=== PATIENT | male | born 1955 ===

== ENCOUNTER 2016-11-26 15:00 | Emergency (ER) | payer MEDICARE ==
[2016-11-26 15:01] VITALS: PULSE 58; BMI 53.4
[2016-11-26 16:07] VITALS: TEMP 98
[2016-11-26] MEDS ORDERED: Oxycodone/Acetaminophen 5/325 mg Tab PO STA (16:42)
--- NOTE | 2016-11-26 17:01 | ED PDOC ---
Arrival/HPI - General Chief Complaint: Back Pain Time Seen by Provider: 11/26/16 16:20 Historian: Patient - History of Present Illness Narrative History of Present Illness (Text): 11/26/16 16:20 A 61 year old male, whose past medical history includes chronic back pain, presents to the emergency department complaining of right sided back pain since this morning. Patient is requesting pain medication. Patient follows up with PMD for pain. He denies any bladder/urinary symptoms, saddle anesthesia, or any other complaints at this time. PMD: Dr. Brown Time/Duration: 1-3 hours Symptom Onset: Sudden Symptom Course: Unchanged Quality: Other Activities at Onset: Rest Context: Home Past Medical History - Provider Review Nursing Documentation Reviewed: Yes - Infectious Disease Hx of Infectious Diseases: None - Tetanus Immunization Tetanus Immunization: Unknown - Cardiac Hx Cardiac Disorders: Yes Hx Cardiac Arrhythmia: Yes Hx Congestive Heart Failure: Yes Hx Hypertension: Yes Hx Peripheral Edema: Yes (b/l lower extremity lymphadema) Other/Comment: venous stasis ble - Pulmonary Hx Respiratory Disorders: Yes Other/Comment: sob - Neurological Hx Neurological Disorder: No - HEENT Hx HEENT Disorder: No - Renal Hx Renal Disorder: Yes ("born with one kidney") - Endocrine/Metabolic Hx Endocrine Disorders: No - Hematological/Oncological Hx Blood Disorders: No - Integumentary Hx Dermatological Disorder: Yes (CELLULITIS TO LOWER EXTREMITY) Other/Comment: bilateral lower ext lymphedema, with stasis ulcers to bilateral legs which are now healed, pt now has a scratch to outer left calf which is draining clear drainage, both lower legs have drk skin discolorations - Musculoskeletal/Rheumatological Hx Musculoskeletal Disorders: No Hx Falls: No - Gastrointestinal Hx Gastrointestinal Disorders: No - Genitourinary/Gynecological Hx Genitourinary Disorders: No - Psychiatric Hx Psychophysiologic Disorder: Yes Hx Depression: Yes Hx Emotional Abuse: No Hx Physical Abuse: No Hx Substance Use: Yes - Surgical History Hx Gastric Bypass Surgery: Yes (Lap band) Hx Orthopedic Surgery: Yes Other/Comment: left knee sx for torn ligament and cartilige, lap band 5 yrs ago "weight went up and down" - Anesthesia Hx Anesthesia: Yes Hx Anesthesia Reactions: No Hx Malignant Hyperthermia: No - Suicidal Assessment Feels Threatened In Home Enviroment: No Family/Social History - Physician Review Nursing Documentation Reviewed: Yes Family/Social History: No Known Family HX Smoking Status: Never Smoked Hx Alcohol Use: Yes Hx Substance Use: Yes Hx Substance Use Treatment: No Allergies/Home Meds Allergies/Adverse Reactions: Allergies No Known Allergies Allergy (Verified 10/27/16 11:47) Home Medications: Home Meds Medication Instructions Recorded Confirmed Cholecalciferol 400 Intl Units 1 tab PO DAILY 10/21/16 10/27/16 [Vitamin D 400 Intl Units Tab] Cyanocobalamin (Vitamin B-12) 1 tab PO DAILY 10/21/16 10/27/16 [Vitamin B12] Review of Systems - Physician Review All systems were reviewed & negative as marked: Yes - Review of Systems Gastrointestinal: absent: Stool Changes Genitourinary Male: absent: Dysuria, Frequency, Hematuria, Urinary Output Changes Musculoskeletal: Back Pain Physical Exam Vital Signs Reviewed: Yes Vital Signs Temp Pulse Resp BP Pulse Ox 11/26/16 16:03 98 F 88 18 157/108 H 96 Temperature: Afebrile Blood Pressure: Hypertensive Pulse: Regular Respiratory Rate: Normal Appearance: Positive for: Well-Appearing, Non-Toxic, Comfortable Pain Distress: None Mental Status: Positive for: Alert and Oriented X 3 - Systems Exam Head: Present: Atraumatic, Normocephalic Pupils: Present: PERRL Extroacular Muscles: Present: EOMI Conjunctiva: Present: Normal Mouth: Present: Moist Mucous Membranes Neck: Present: Normal Range of Motion Respiratory/Chest: Present: Clear to Auscultation, Good Air Exchange. No: Respiratory Distress, Accessory Muscle Use Cardiovascular: Present: Regular Rate and Rhythm, Normal S1, S2. No: Murmurs Abdomen: Present: Normal Bowel Sounds. No: Tenderness, Distention, Peritoneal Signs Back: No: CVA Tenderness, Midline Tenderness, Paraspinal Tenderness Upper Extremity: Present: Normal Inspection. No: Cyanosis, Edema Lower Extremity: Present: Normal Inspection. No: Edema Neurological: Present: GCS=15, CN II-XII Intact, Speech Normal Skin: Present: Warm, Dry, Normal Color. No: Rashes Psychiatric: Present: Alert, Oriented x 3, Normal Insight, Normal Concentration Medical Decision Making ED Course and Treatment: 11/26/16 16:20 Impression: A 61 year old male with chronic back pain. Differential Diagnosis include but are not limited to: chronic back pain. Plan: -- Percocet -- Reassess and disposition Prior Visits: Notes and results from previous visits were reviewed. Patient last presented on 10/27/16 for evaluation of urinary frequency and urgency. Progress Notes: On re-evaluation, the patient feels better and is in no acute distress. I have discussed the results and plan with the patient, who expresses understanding. Patient in agreement with plan to discharged home. Patient is stable for discharge. Patient was instructed to follow up with physician/clinic in 1-2 days or return if symptoms worsen or new concerning symptoms arise. - Medication Orders Current Medication Orders: Discontinued Medications Oxycodone/Acetaminophen (Percocet 5/325 Mg Tab) 1 tab PO STAT STA Stop: 11/26/16 16:43 Last Admin: 11/26/16 17:16 Dose: 1 TAB - Scribe Statement The provider has reviewed the documentation as recorded by the Elainaibvilla Eduardo Provider Scribe Attestation: All medical record entries made by the Scribe were at my direction and personally dictated by me. I have reviewed the chart and agree that the record accurately reflects my personal performance of the history, physical exam, medical decision making, and the department course for this patient. I have also personally directed, reviewed, and agree with the discharge instructions and disposition. Disposition/Present on Arrival - Present on Arrival Any Indicators Present on Arrival: No History of DVT/PE: No History of Uncontrolled Diabetes: No Urinary Catheter: No History of Decub. Ulcer: No History Surgical Site Infection Following: None - Disposition Have Diagnosis and Disposition been Completed?: Yes Diagnosis: Chronic back pain Disposition: HOME/ ROUTINE Disposition Time: 16:50 Patient Plan: Discharge Patient Problems: Current Active Problems Problem Status Diagnosed CHF (congestive heart failure) Acute Chronic back pain Acute Leg ulcer, left Acute Condition: GOOD Discharge Instructions (ExitCare): Chronic Back Pain (ED) Additional Instructions: Thank you for letting us take care of you today. Your provider was Dr. Morrow. You were treated for chronic back pain. The emergency medical care you received today was directed at your acute symptoms. If you were prescribed any medication, please fill it and take as directed. It may take several days for your symptoms to resolve. Return to the Emergency Department if your symptoms worsen, do not improve, or if you have any other problems. Please contact your doctor or call one of the physicians/clinics you have been referred to that are listed on the Patient Visit Information form that is included in your discharge packet. Bring any paperwork you were given at discharge with you along with any medications you are taking to your follow up visit. Our treatment cannot replace ongoing medical care by a primary care provider (PCP) outside of the emergency department. Thank you for allowing the [facility] team to be part of your care today. Follow up with your primary doctor in 2-3 days for re-evaluation. Prescriptions: Acetaminophen/Oxycodone Hydr [Oxycodone and Acetaminophen 325 mg-2.5 mg] 1 tab PO Q6 PRN #10 tab PRN Reason: Pain, Severe (8-10) Referrals: Rashad Brown MD [Primary Care Provider] - Follow up with primary
[2016-11-26 22:18] VITALS: BP 149/92; PULSE 83; RESP 16; O2SAT 98
== END 2016-11-26 17:30 | disposition home or self-care (01) ==
LOC: ED 15:00
DX: M54.9 Dorsalgia, unspecified (principal); G89.29 Other chronic pain

== ENCOUNTER 2016-12-28 12:22 | Emergency (ER) | payer MEDICARE, OTHER ==
[2016-12-28 12:23] VITALS: PULSE 58
[2016-12-28 12:37] VITALS: BMI 41.5
[2016-12-28 12:39] VITALS: TEMP 98.3
--- NOTE | 2016-12-28 13:01 | ED PDOC ---
Arrival/HPI - General Chief Complaint: High Blood Pressure Time Seen by Provider: 12/28/16 12:36 Historian: Patient - History of Present Illness Narrative History of Present Illness (Text): 12/28/16 13:19 61 year old male presents to the emergency department for elevated blood pressure. He states he was at wound care when he was told to come to the ER for high BP reading. Patient states he is on medication for hypertension and his blood pressure usually runs high. Denies chest pain, cough, fever, or other symptoms. PMD: Dr. Brown Time/Duration: 24 hours Symptom Onset: Sudden Context: Walking Associated Symptoms (Text): None Past Medical History - Provider Review Nursing Documentation Reviewed: Yes - Infectious Disease Hx of Infectious Diseases: None - Tetanus Immunization Tetanus Immunization: Unknown - Cardiac Hx Cardiac Disorders: Yes Hx Cardiac Arrhythmia: Yes Hx Congestive Heart Failure: Yes Hx Hypertension: Yes Hx Peripheral Edema: Yes (b/l lower extremity lymphadema) Other/Comment: venous stasis ble - Pulmonary Hx Respiratory Disorders: Yes Other/Comment: sob - Neurological Hx Neurological Disorder: No - HEENT Hx HEENT Disorder: No - Renal Hx Renal Disorder: Yes ("born with one kidney") - Endocrine/Metabolic Hx Endocrine Disorders: No - Hematological/Oncological Hx Blood Disorders: No - Integumentary Hx Dermatological Disorder: Yes (CELLULITIS TO LOWER EXTREMITY) Other/Comment: bilateral lower ext lymphedema, with stasis ulcers to bilateral legs which are now healed, pt now has a scratch to outer left calf which is draining clear drainage, both lower legs have drk skin discolorations - Musculoskeletal/Rheumatological Hx Musculoskeletal Disorders: No Hx Falls: No - Gastrointestinal Hx Gastrointestinal Disorders: No - Genitourinary/Gynecological Hx Genitourinary Disorders: No - Psychiatric Hx Psychophysiologic Disorder: Yes Hx Depression: Yes Hx Emotional Abuse: No Hx Physical Abuse: No Hx Substance Use: Yes - Surgical History Hx Gastric Bypass Surgery: Yes (Lap band) Hx Orthopedic Surgery: Yes Other/Comment: left knee sx for torn ligament and cartilige, lap band 5 yrs ago "weight went up and down" - Anesthesia Hx Anesthesia: Yes Hx Anesthesia Reactions: No Hx Malignant Hyperthermia: No - Suicidal Assessment Feels Threatened In Home Enviroment: No Family/Social History - Physician Review Nursing Documentation Reviewed: Yes Family/Social History: Unknown Family HX Smoking Status: Never Smoked Hx Alcohol Use: Yes Hx Substance Use: Yes Hx Substance Use Treatment: No Allergies/Home Meds Allergies/Adverse Reactions: Allergies No Known Allergies Allergy (Verified 12/28/16 12:37) Home Medications: Home Meds Medication Instructions Recorded Confirmed Cholecalciferol 400 Intl Units 1 tab PO DAILY 10/21/16 12/28/16 [Vitamin D 400 Intl Units Tab] Levothyroxine [Synthroid] 25 mcg PO DAILY 12/28/16 12/28/16 Losartan [Cozaar] 50 mg PO DAILY 12/28/16 12/28/16 Lubiprostone [Amitiza] 24 mcg PO DAILY 12/28/16 12/28/16 Pregabalin [Lyrica] 50 mg PO DAILY 12/28/16 12/28/16 Review of Systems - Review of Systems Constitutional: absent: Fevers Respiratory: SOB (only on exertion). absent: Cough Cardiovascular: Edema (chronic). absent: Chest Pain, Orthopnea Gastrointestinal: absent: Abdominal Pain Skin: Ulcer (on legs, chronic) Physical Exam Vital Signs Reviewed: Yes Vital Signs Temp Pulse Resp BP Pulse Ox 12/28/16 15:45 77 18 166/93 H 97 12/28/16 14:40 90 18 162/91 H 96 12/28/16 13:50 90 176/101 H 12/28/16 13:49 90 176/101 H 12/28/16 12:23 98.3 F 98 H 17 178/110 H 100 Temperature: Afebrile Blood Pressure: Hypertensive Pulse: Regular Respiratory Rate: Normal Appearance: Positive for: Well-Appearing, Non-Toxic, Comfortable Pain Distress: None Mental Status: Positive for: Alert and Oriented X 3 - Systems Exam Head: Present: Atraumatic, Normocephalic Pupils: Present: PERRL Extroacular Muscles: Present: EOMI Conjunctiva: Present: Normal Mouth: Present: Moist Mucous Membranes Neck: Present: Normal Range of Motion, JVD Respiratory/Chest: Present: Clear to Auscultation, Good Air Exchange. No: Respiratory Distress, Accessory Muscle Use Cardiovascular: Present: Regular Rate and Rhythm, Normal S1, S2. No: Murmurs Abdomen: Present: Normal Bowel Sounds. No: Tenderness, Distention, Peritoneal Signs Back: Present: Normal Inspection Upper Extremity: Present: Normal Inspection. No: Cyanosis, Edema Lower Extremity: Present: Edema (Trace edema bilaterally) Neurological: Present: GCS=15, CN II-XII Intact, Speech Normal Skin: Present: Warm, Dry, Normal Color. No: Rashes Psychiatric: Present: Alert, Oriented x 3, Normal Insight, Normal Concentration Medical Decision Making ED Course and Treatment: EKG shows atrial fibrillation at 100 BPM with normal axis, no STEMI. Interpreted by me. Chest X-ray Punch Press Operator: Marcos Galan MD IMPRESSION: No active disease 12/28/16 15:[address] Brown who agrees w dc home. pt sitting up, no distress, vss. BP improved. agrees w plan- will f/u saturday and return if worse. - Lab Interpretations Lab Results: 12/28/16 13:40 12/28/16 13:40 Lab Results 12/28/16 13:40: WBC 7.0, RBC 4.63, Hgb 14.3, Hct 43.5, MCV 94.0, MCH 30.9, MCHC 32.9, RDW 15.4 H, Plt Count 149, MPV 9.0, Gran % 77.9 H, Lymph % (Auto) 14.2 L, Dupage % (Auto) 6.7 H, Eos % (Auto) 1.1 L, Baso % (Auto) 0.1, Gran # 5.48, Lymph # 1.0 L, Dupage # 0.5, Eos # 0.1, Baso # 0.01, Sodium 147, Potassium 3.7, Chloride 103, Carbon Dioxide 31, Anion Gap 17, BUN 21, Creatinine 1.2, Est GFR ( Amer) > 60, Est GFR (Non-Af Amer) > 60, Random Glucose 95, Calcium 9.1, Total Bilirubin 2.4 H, AST 24, ALT 26, Alkaline Phosphatase 94, Troponin I 0.07 D, NT-Pro-B Natriuret Pep 4520 H, Total Protein 8.2, Albumin 4.1, Globulin 4.1 , Albumin/Globulin Ratio 1.0 L - RAD Interpretation Radiology Orders: 12/28/16 12:59 CHEST TWO VIEWS (PA/LAT) [RAD] Stat - EKG Interpretation Interpreted by ED Physician: Yes Type: 12 lead EKG - Medication Orders Current Medication Orders: Discontinued Medications Carvedilol (Coreg) 3.125 mg PO STAT STA Stop: 12/28/16 13:00 Last Admin: 12/28/16 13:50 Dose: 3.125 MG MAR Pulse and Blood Pressure Document 12/28/16 13:50 SS (Rec: 12/28/16 13:50 [email or web address]) Pulse Pulse Rate (60-90) 90 Blood Pressure Blood Pressure (100/60-150/90) 176/101 Furosemide (Lasix) 40 mg PO STAT STA Stop: 12/28/16 13:00 Last Admin: 12/28/16 13:49 Dose: 40 MG MAR Blood Pressure Document 12/28/16 13:49 SS (Rec: 12/28/16 13:50 SS [email or web address] Blood Pressure Blood Pressure (100/60-150/90) 176/101 Losartan Potassium (Cozaar) 50 mg PO STAT STA Stop: 12/28/16 13:00 Last Admin: 12/28/16 13:49 Dose: 50 MG MAR Pulse and Blood Pressure Document 12/28/16 13:49 SS (Rec: 12/28/16 13:49 SS [email or web address] Pulse Pulse Rate (60-90) 90 Blood Pressure Blood Pressure (100/60-150/90) 176/101 - Scribe Statement The provider has reviewed the documentation as recorded by the Geno Sanchez Provider Scribe Attestation: All medical record entries made by the Scribe were at my direction and personally dictated by me. I have reviewed the chart and agree that the record accurately reflects my personal performance of the history, physical exam, medical decision making, and the department course for this patient. I have also personally directed, reviewed, and agree with the discharge instructions and disposition. Disposition/Present on Arrival - Present on Arrival Any Indicators Present on Arrival: No History of DVT/PE: No History of Uncontrolled Diabetes: No Urinary Catheter: No History of Decub. Ulcer: No History Surgical Site Infection Following: None - Disposition Have Diagnosis and Disposition been Completed?: Yes Diagnosis: Hypertension Disposition: HOME/ ROUTINE Disposition Time: 16:02 Patient Problems: Current Active Problems Problem Status Diagnosed CHF (congestive heart failure) Acute Hypertension Acute Leg ulcer, left Acute Condition: STABLE Additional Instructions: Please follow up with your doctor on Saturday. Return to the ER for any worsening symptoms or for any other concerns. The medications you received in the ER: 1. losartan 50mg 2. furosemide 40mg 3, carvedilol 3.125mg Referrals: Rashad Brown MD [Primary Care Provider] - Follow up with primary
[2016-12-28 13:53] LABS: ADD MANUAL DIFF? NO
[2016-12-28 14:00] LABS: BASO # 0.01 K/mm3 (0.0-2.0); BASO % 0.1 % (0.0-3.0); EOS # 0.1 (0.0-0.7); EOS % 1.1 % (1.5-5.0); GRAN # 5.48 (1.4-6.5); GRAN % 77.9 % (50.0-68.0); HEMATOCRIT 43.5 % (42.0-52.0); LYMPH % 14.2 % (22.0-35.0); MEAN CORPUSCULAR HEMOGLOBIN 30.9 pg (25.0-35.0); MEAN CORPUSCULAR HGB CONC 32.9 g/dl (31.0-37.0); MONO # 0.5 (0.1-0.6); MONO % 6.7 % (1.0-6.0); PLATELET COUNT 149 10^3/uL (120.0-450.0); RED CELL DISTRIBUTION WIDTH 15.4 % (11.5-14.5)
[2016-12-28 14:04] LABS: ALKALINE PHOSPHATASE 94 U/L (38-133); ALT/SGPT 26 U/L (7-56); AST/SGOT 24 U/L (15-59); BILIRUBIN,TOTAL 2.4 mg/dL (0.2-1.3); BLOOD UREA NITROGEN 21 mg/dL (7-21); CALCIUM 9.1 mg/dL (8.4-10.5); CARBON DIOXIDE 31 mmol/L (21-33); CHLORIDE 103 mmol/L (98-107); GFR AFRICAN-AMERICAN > 60; GLUCOSE,RANDOM 95 mg/dL (70-110); POTASSIUM 3.7 mmol/L (3.6-5.0); SODIUM 147 mmol/L (132-148); TOTAL PROTEIN 8.2 g/dL (5.8-8.3)
--- NOTE | 2016-12-28 14:06 | CP.PCM.CON ---
History of Present Illness - History of Present Illness History of Present Illness: Infectious Disease Consultation: December 28, 2016 61 yo male with extensive medical history presenting with swelling and discoloration of the left foot and ankle. The patient was found to have blood pressure of 190/110 [facility] staff [facility]. Case discussed with Dr. Byers and patient sent to ER for further evaluation. The patient had wound cultures showing MRSA and Pseudomonas from 12/24/2016. He has SOB on mild exertion but patient states this is normal for him. Supportive care. PMHx: chronic systolic CHF with EF 25%, chronic atrial fibrillation, chronic lymphedema with chronic venous stasis, COPD, HTN, history of gastric bypass surgery, history of left knee surgery PSHx: gastric bypass surgery, left knee surgery as teenager Allergies: NKDA Social Hx: No tobacco or illicit drug use. Social EtOH. Lives at home with family. Medications: Atorvastatin, Crvedilol, Digoxin, Folic Acid, Milrinone, Metolazone, Pantoprazone, Miralax, Spironolactone, Warfarin Family Hx: None given ROS: no fevers, chills, nausea, vomiting, diarrhea, headaches, dizziness, chest pain , abdominal pain, melena, hematuria, hematemesis, hematochezia, depression, anxiety. He does have SOB. Past Patient History - Infectious Disease Hx of Infectious Diseases: None - Tetanus Immunizations Tetanus Immunization: Unknown - Past Social History Smoking Status: Never Smoked - CARDIAC Hx Cardiac Disorders: Yes Hx Cardia Arrhythmia: Yes Hx Congestive Heart Failure: Yes Hx Hypertension: Yes Hx Peripheral Edema: Yes (b/l lower extremity lymphadema) Other/Comment: venous stasis ble - PULMONARY Hx Respiratory Disorders: Yes Other/Comment: sob - NEUROLOGICAL Hx Neurological Disorder: No - HEENT Hx HEENT Problems: No - RENAL Hx Chronic Kidney Disease: Yes ("born with one kidney") - ENDOCRINE/METABOLIC Hx Endocrine Disorders: No - HEMATOLOGICAL/ONCOLOGICAL Hx Blood Disorders: No - INTEGUMENTARY Hx Dermatological Problems: Yes (CELLULITIS TO LOWER EXTREMITY) Other/Comment: bilateral lower ext lymphedema, with stasis ulcers to bilateral legs which are now healed, pt now has a scratch to outer left calf which is draining clear drainage, both lower legs have drk skin discolorations - MUSCULOSKELETAL/RHEUMATOLOGICAL Hx Musculoskeletal Disorders: No Hx Falls: No - GASTROINTESTINAL Hx Gastrointestinal Disorders: No - GENITOURINARY/GYNECOLOGICAL Hx Genitourinary Disorders: No - PSYCHIATRIC Hx Psychophysiologic Disorder: Yes Hx Depression: Yes Hx Emotional Abuse: No Hx Physical Abuse: No Hx Substance Use: Yes - SURGICAL HISTORY Hx Gastric Bypass Surgery: Yes (Lap band) Hx Orthopedic Surgery: Yes Other/Comment: left knee sx for torn ligament and cartilige, lap band 5 yrs ago "weight went up and down" - ANESTHESIA Hx Anesthesia: Yes Hx Anesthesia Reactions: No Hx Malignant Hyperthermia: No Meds Allergies/Adverse Reactions: Allergies Allergy/AdvReac Type Severity Reaction Status Date / Time No Known Allergies Allergy Verified 12/28/16 12:37 Physical Exam - Constitutional Appears: Non-toxic, No Acute Distress, Chronically Ill - Head Exam Head Exam: ATRAUMATIC, NORMOCEPHALIC - Eye Exam Eye Exam: EOMI, PERRL Pupil Exam: NORMAL ACCOMODATION, PERRL - ENT Exam ENT Exam: Mucous Membranes Moist, Normal External Ear Exam, TM's Normal Bilaterally - Neck Exam Neck exam: Positive for: Full Rom, Normal Inspection - Respiratory Exam Respiratory Exam: Decreased Breath Sounds, Clear to Auscultation Bilateral, NORMAL BREATHING PATTERN. absent: Rales, Rhonchi, Wheezes - Cardiovascular Exam Cardiovascular Exam: REGULAR RHYTHM, RRR, +S1, +S2 - GI/Abdominal Exam GI & Abdominal Exam: Normal Bowel Sounds, Soft. absent: Distended, Tenderness - Extremities Exam Extremities exam: Positive for: normal inspection Additional comments: bilateral leg swelling with left worse than right. Discoloration of the ankle and foot. deep wound in left foot. No drainage. - Neurological Exam Neurological exam: Alert, CN II-XII Intact, Oriented x3 - Psychiatric Exam Psychiatric exam: Normal Affect, Normal Mood - Skin Additional comments: as per extremity exam. Results - Vital Signs Recent Vital Signs: Last Vital Signs Temp 98.3 F 12/28/16 12:23 Pulse 90 12/28/16 13:50 Resp 17 12/28/16 12:23 BP 176/101 H 12/28/16 13:50 Pulse Ox 100 12/28/16 12:23 Assessment & Plan - Assessment and Plan (Free Text) Assessment: 61 yo male with left foot cellulitis and soft tissue infection. The patient with multiple medical issues. The has severely elevated blood pressure and had to be sent to the Emergency Room for evaluation. Supportive care. If discharged from the ER, would continue the patient on Bactrim DS BID times 14 days with Fosfomycin 1 packet daily for 14 days. If patient is admitted, consider use of IV Meropenem and possible Vancomycin use. Thank you for allowing me to participate in the care of the patient, we will follow with you.
[2016-12-28 14:15] LABS: TROPONIN I 0.07 ng/mL
[2016-12-28 14:57] VITALS: RESP 18
[2016-12-28 15:45] VITALS: BP 166/93; PULSE 77; O2SAT 97
--- NOTE | 2016-12-28 15:59 | RAD ---
HISTORY: sob COMPARISON: 06/06/2016 TECHNIQUE: Chest PA and lateral FINDINGS: LUNGS: No active pulmonary disease. PLEURA: No significant pleural effusion identified. No pneumothorax apparent. CARDIOVASCULAR: Normal. OSSEOUS STRUCTURES: No significant abnormalities. VISUALIZED UPPER ABDOMEN: Normal. OTHER FINDINGS: None. IMPRESSION: No active disease.
--- NOTE | 2016-12-28 18:18 | CARD ---
APPROVED REPORT EKG Measurement Heart [id number] <Conclusion> Atrial fibrillation with premature ventricular or aberrantly conducted complexes Anterolateral infarct, age undetermined Abnormal ECG
== END 2016-12-28 16:27 | disposition home or self-care (01) ==
LOC: ED 12:22
DX: I10 Essential (primary) hypertension (principal); I50.9 Heart failure, unspecified

== ENCOUNTER 2016-12-31 12:32 | Inpatient (IN) | payer MEDICARE, OTHER ==
[2016-12-31 12:32] VITALS: PULSE 58
--- NOTE | 2016-12-31 13:26 | ED PDOC ---
Arrival/HPI - General Chief Complaint: High Blood Pressure Time Seen by Provider: 12/31/16 13:16 Historian: Patient - History of Present Illness Narrative History of Present Illness (Text): 12/31/16 13:23 A 61 year old male, whose past medical history includes hypertension, was sent into the emergency department by [facility] [employer] for left leg ulcer. As per Dr. Sebastian, patient has failed outpatient treatment and was sent in for hospital admission. Patient reports high blood pressure but denies any pain or discomfort. He reports he has been compliant with his medication. Patient denies any fever, nausea, vomiting, diarrhea, abdominal pain, urinary symptoms, chest pain, headache, dizziness or any other complaints. PMD: Dr. Brown Harness Brusher: Dr. Sebastian Radio Repairman: Dr. Gaona Time/Duration: Prior to Arrival Symptom Course: Unchanged Quality: Other Context: Other Associated Symptoms (Text): 12/31/16 14:01 Patient was seen in the office today by his president financial [facility] , who sent the patient to the emergency department for admission for a nonhealing infected ulcer of his right lower extremity that failed outpatient management. I spoke with her, and she had just redressed the wound and requested that I did not take down the dressing. He also has chronic hypertension. He denies headache dizziness or lightheadedness. He does have dyspnea on exertion. No chest pain or palpitations. No abdominal pain vomiting or diarrhea. Past Medical History - Provider Review Nursing Documentation Reviewed: Yes - Infectious Disease Hx of Infectious Diseases: None - Tetanus Immunization Tetanus Immunization: Unknown - Cardiac Hx Cardiac Disorders: Yes Hx Cardiac Arrhythmia: Yes Hx Congestive Heart Failure: Yes Hx Hypertension: Yes Hx Peripheral Edema: Yes (b/l lower extremity lymphadema) Other/Comment: venous stasis ble - Pulmonary Hx Respiratory Disorders: Yes Other/Comment: sob - Neurological Hx Neurological Disorder: No - HEENT Hx HEENT Disorder: No - Renal Hx Renal Disorder: Yes ("born with one kidney") - Endocrine/Metabolic Hx Endocrine Disorders: No - Hematological/Oncological Hx Blood Disorders: No - Integumentary Hx Dermatological Disorder: Yes (CELLULITIS TO LOWER EXTREMITY) Other/Comment: bilateral lower ext lymphedema, with stasis ulcers to bilateral legs which are now healed, pt now has a scratch to outer left calf which is draining clear drainage, both lower legs have drk skin discolorations - Musculoskeletal/Rheumatological Hx Musculoskeletal Disorders: No Hx Falls: No - Gastrointestinal Hx Gastrointestinal Disorders: No - Genitourinary/Gynecological Hx Genitourinary Disorders: No - Psychiatric Hx Psychophysiologic Disorder: Yes Hx Depression: Yes Hx Emotional Abuse: No Hx Physical Abuse: No Hx Substance Use: Yes - Surgical History Hx Gastric Bypass Surgery: Yes (Lap band) Hx Orthopedic Surgery: Yes Other/Comment: left knee sx for torn ligament and cartilige, lap band 5 yrs ago "weight went up and down" - Anesthesia Hx Anesthesia: Yes Hx Anesthesia Reactions: No Hx Malignant Hyperthermia: No - Suicidal Assessment Feels Threatened In Home Enviroment: No Family/Social History - Physician Review Nursing Documentation Reviewed: Yes Family/Social History: No Known Family HX Smoking Status: Never Smoked Hx Alcohol Use: Yes Hx Substance Use: Yes Hx Substance Use Treatment: No Allergies/Home Meds Allergies/Adverse Reactions: Allergies No Known Allergies Allergy (Verified 12/31/16 13:16) Home Medications: Home Meds Medication Instructions Recorded Confirmed Cholecalciferol 400 Intl Units 1 tab PO DAILY 10/21/16 12/28/16 [Vitamin D 400 Intl Units Tab] Levothyroxine [Synthroid] 25 mcg PO DAILY 12/28/16 12/28/16 Losartan [Cozaar] 50 mg PO DAILY 12/28/16 12/28/16 Lubiprostone [Amitiza] 24 mcg PO DAILY 12/28/16 12/28/16 Pregabalin [Lyrica] 50 mg PO DAILY 12/28/16 12/28/16 Review of Systems - Physician Review All systems were reviewed & negative as marked: Yes - Review of Systems Constitutional: Fatigue, Other (High blood pressure). absent: Fevers, Night Sweats Respiratory: absent: Cough, Sputum, Wheezing Cardiovascular: MICHAEL. absent: Chest Pain, Palpitations, Syncope Gastrointestinal: absent: Abdominal Pain, Diarrhea, Nausea, Vomiting Genitourinary Male: absent: Dysuria, Frequency, Hematuria, Urinary Output Changes Musculoskeletal: Other (Left leg ulcer) Neurological: absent: Headache, Dizziness, Focal Weakness, Gait Changes Physical Exam Vital Signs Reviewed: Yes Vital Signs Temp Pulse Resp BP Pulse Ox 12/31/16 14:24 69 18 176/98 H 98 12/31/16 13:40 98.3 F 74 18 186/116 H 98 Temperature: Afebrile Blood Pressure: Hypertensive Pulse: Regular Respiratory Rate: Normal Appearance: Positive for: Non-Toxic, Comfortable, Other (Morbidly obese male) Pain Distress: None Mental Status: Positive for: Alert and Oriented X 3 - Systems Exam Head: Present: Atraumatic, Normocephalic Pupils: Present: PERRL Extroacular Muscles: Present: EOMI Conjunctiva: Present: Normal Mouth: Present: Moist Mucous Membranes Pharnyx: No: ERYTHEMA, EXUDATE, TONSILS ENLARGED Respiratory/Chest: Present: Good Air Exchange, Other (Diminished breath sounds bilaterally). No: Respiratory Distress, Accessory Muscle Use Cardiovascular: Present: Normal S1, S2, Irregular Rhythm, Other (Regular Rate). No: Murmurs Abdomen: Present: Normal Bowel Sounds. No: Tenderness, Distention, Peritoneal Signs, Rebound, Guarding Upper Extremity: Present: Normal Inspection. No: Cyanosis, Edema Lower Extremity: Present: Other (both lower extremities are dressed) Neurological: Present: GCS=15, CN II-XII Intact, Speech Normal, Motor Func Grossly Intact Skin: Present: Warm, Dry, Normal Color. No: Rashes Psychiatric: Present: Alert, Oriented x 3, Normal Insight, Normal Concentration Medical Decision Making ED Course and Treatment: 12/31/16 13:23 Impression: A 61 year old male sent in for left leg ulcer. Patient note high blood pressure but denies any pain or discomfort. Plan: -- Chest xray -- EKG -- Labs -- Blood culture -- Reassess and disposition Prior Visits: Notes and results from previous visits were reviewed. Patient last seen in the ED on 12/28/16 for hypertension. Progress Notes: 12/31/16 13:[address] Sebastian, who states to not remove dressing on lower extremities since they were just changed prior to arrival. She reports the wound on patients right lower extremity has progressively worsened, states the ulcer has become more infectious and erythematous. 12/31/16 13:41 Dr. Adam Ribera paged. Awaiting call back. 12/31/16 14:04 EKG shows atrial fibrillation rate approximately 75 with poor R-wave progression and no acute ST or T-wave changes Report Date : 12/31/2016 14:07:28 Procedure: Chest xray Dictator : Marcos Galan MD IMPRESSION: No active disease. - Lab Interpretations Lab Results: 12/31/16 14:00 12/31/16 14:00 Lab Results 12/31/16 14:00: WBC 6.2, RBC 4.49, Hgb 13.8 L, Hct 41.7 L, MCV 92.9, MCH 30.7, MCHC 33.1, RDW 15.1 H, Plt Count 137, MPV 9.5, Gran % 79.0 H, Lymph % (Auto) 13.3 L, Gilmer % (Auto) 6.4 H, Eos % (Auto) 1.1 L, Baso % (Auto) 0.2, Gran # 4.91 , Lymph # 0.8 L, Gilmer # 0.4, Eos # 0.1, Baso # 0.01, PT 18.3 H, INR 1.69 H, APTT 33.4 H, pO2 28 L, VBG pH 7.32, VBG pCO2 60.0, VBG HCO3 30.9 H, VBG Total CO2 32.7 H, VBG O2 Sat (Calc) 54.9, VBG Base Excess 3.2 H, VBG Potassium 3.5 L, Glucose 98, Lactate 0.8, FiO2 21.0, Sodium 140.0, Potassium 3.8, Chloride 106.0 , Carbon Dioxide 30, Anion Gap 15, BUN 24 H, Creatinine 1.5 H, Est GFR ( Amer) 58, Est GFR (Non-Af Amer) 48, Random Glucose 99, Calcium 9.4, Total Bilirubin 2.4 H, AST 22, ALT 30, Alkaline Phosphatase 95, Lactate Dehydrogenase 430, Total Creatine Kinase 61, Troponin I 0.06, Total Protein 7.6, Albumin 3.9, Globulin 3.8, Albumin/Globulin Ratio 1.0 L, Venous Blood Potassium 3.5 L I have reviewed the lab results: Yes - RAD Interpretation Radiology Orders: 12/31/16 13:40 CHEST PORTABLE [RAD] Stat - Medication Orders Current Medication Orders: Discontinued Medications Clonidine HCl (Catapres) 0.2 mg PO ONCE ONE Stop: 12/31/16 14:05 - Scribe Statement The provider has reviewed the documentation as recorded by the Geno Lindsey Provider Scribe Attestation: All medical record entries made by the Scribe were at my direction and personally dictated by me. I have reviewed the chart and agree that the record accurately reflects my personal performance of the history, physical exam, medical decision making, and the department course for this patient. I have also personally directed, reviewed, and agree with the discharge instructions and disposition. Disposition/Present on Arrival - Present on Arrival Any Indicators Present on Arrival: No History of DVT/PE: No History of Uncontrolled Diabetes: No Urinary Catheter: No History of Decub. Ulcer: No History Surgical Site Infection Following: None - Disposition Have Diagnosis and Disposition been Completed?: Yes Diagnosis: Hypertension, Ulcer of right lower extremity, Cellulitis Disposition: HOSPITALIZED Disposition Time: 14:55 Patient Plan: Admission Patient Problems: Current Active Problems Problem Status Diagnosed CHF (congestive heart failure) Acute Leg ulcer, left Acute Condition: FAIR Discharge Instructions (ExitCare): Cellulitis (ED)
--- NOTE | 2016-12-31 14:09 | RAD ---
HISTORY: admit COMPARISON: 12/28/2016 FINDINGS: LUNGS: No active pulmonary disease. PLEURA: No significant pleural effusion identified, no pneumothorax apparent. CARDIOVASCULAR: Mild cardiomegaly. Mild vascular congestion OSSEOUS STRUCTURES: No significant abnormalities. VISUALIZED UPPER ABDOMEN: Normal. OTHER FINDINGS: None. IMPRESSION: No active disease.
[2016-12-31 14:17] LABS: ADD MANUAL DIFF? NO
[2016-12-31 14:19] LABS: VENOUS BLOOD GAS BASE EXCESS 3.2 mmol/L (0.0-2.0); VENOUS BLOOD PH 7.32 (7.32-7.43)
[2016-12-31 14:22] LABS: BASO # 0.01 K/mm3 (0.0-2.0); BASO % 0.2 % (0.0-3.0); EOS # 0.1 (0.0-0.7); EOS % 1.1 % (1.5-5.0); GRAN # 4.91 (1.4-6.5); HEMATOCRIT 41.7 % (42.0-52.0); LYMPH # 0.8 (1.2-3.4); LYMPH % 13.3 % (22.0-35.0); MEAN CELL VOLUME 92.9 fL (80.0-105.0); MEAN CORPUSCULAR HEMOGLOBIN 30.7 pg (25.0-35.0); MEAN CORPUSCULAR HGB CONC 33.1 g/dl (31.0-37.0); MEAN PLATELET VOLUME 9.5 fl (7.0-11.0); MONO # 0.4 (0.1-0.6); MONO % 6.4 % (1.0-6.0); PLATELET COUNT 137 10^3/uL (120.0-450.0); RED CELL DISTRIBUTION WIDTH 15.1 % (11.5-14.5); WHITE BLOOD COUNT 6.2 10^3/ul (4.5-11.0)
[2016-12-31 14:29] LABS: BILIRUBIN,TOTAL 2.4 mg/dL (0.2-1.3); CALCIUM 9.4 mg/dL (8.4-10.5); POTASSIUM 3.8 mmol/L (3.6-5.0); TOTAL PROTEIN 7.6 g/dL (5.8-8.3)
[2016-12-31 14:30] LABS: INR 1.69 (0.93-1.08); PARTIAL THROMBOPLASTIN TIME 33.4 Seconds (23.7-30.8)
[2016-12-31 14:41] LABS: TROPONIN I 0.06 ng/mL
[2016-12-31] MEDS ORDERED: Cholecalciferol 400 Intl Units Tab PO SCH ×2 (15:45→15:53)
[2016-12-31] MEDS: Levothyroxine 25 MCG TAB PO SCH (16:55)
[2016-12-31] MEDS: POLYETHYLENE GLYCOL 3350 17 GM/Dose PACKET PO SCH (21:57)
[2016-12-31] MEDS ORDERED: Ceftaroline 600 MG in Sodium Chloride 0.9% 100 ML IVPB SCH ×2 (22:00→22:39)
--- NOTE | 2016-12-31 22:03 | HP ---
HISTORY OF PRESENT ILLNESS: The patient was sent to the Emergency Room by Dr. Sebastian. The patient h ad routine visit to the wound care center for his leg ulceration and venous stasis ulceration where t he patient was found to have elevated blood pressure greater than 180 and diastolic greater than 100 and 110. The patient was brought down from the wound care, sent to the Emergency Room. The patient' s 13-system review was done. As per the podiatry, the patient has a nonhealing left leg ulcer despit e oral antibiotic therapy and outpatient wound care. The patient was also found to have a significan tly elevated blood pressure. Pertinent positive and negative dictated above. CODE STATUS: Full code. LIVING WILL AND ADVANCED DIRECTIVE: None. ALLERGIES: None. Height 5 feet 5 inches. Weight is 250. BMI is 42. SOCIAL HISTORY: The patient positive for substance abuse, alcohol use, denies smoking. OCCUPATIONAL HISTORY: Disabled PAST MEDICAL AND SURGICAL HISTORY: History of gastric bypass, history of morbid obesity, history of chronic venous stasis ulceration and cellulitis of the lower extremity, history of MRSA cellulitis of the lower extremity, history of systolic congestive heart failure, history of hypertension, history of bilateral lower extremity venous stasis nonhealing ulceration, history of cardiomyopathy, history of Coumadin dependent atrial fibrillation, history of lumbar spine degenerative disk disease, history of chronic back pain, history of prostatitic hypertrophy, history of hypertension, history of micros copic hematuria, history of bilateral lower extremity lymphedema and venous stasis ulceration of the lower extremity, history of poor compliance, history of prostate hypertrophy, history of neuropathy, history of constipation, history of hypertension, history of hypothyroidism, history of hypovitaminos is D. The patient's past medical history is also significant for morbid obesity, history of gastric bypass, history of Coumadin dependent atrial fibrillation with poor compliance, history of acute on c hronic kidney disease, history of hypovitaminosis D, history of indeterminate troponin, history of pr oteinuria, microscopic hematuria, Past medical history significant for MRSA cellulitis of the lower extremity, past medical history is significant for history of cholelithiasis, history of hepatic stea tosis with fatty liver, history of hepatosplenomegaly, history of renal cyst, history of bariatric diaz rgery and weight loss surgery, history of cholelithiasis, history of super morbid obesity with body m ass index ____, history of cholelithiasis, history of right renal cyst, history of lumbar spine disk herniation, history of nerve root compression, history of lumbar spine degenerative disk disease and history of lumbar spine disk bulge, foramen stenosis, arthropathy. The patient's past medical histor y is also significant for history of dilated cardiomyopathy, history of pulmonary arterial hypertensi on with elevated right ventricular systolic pressure, history of moderate mitral regurgitation, moder ate tricuspid regurgitation, history of atrial fibrillation, history of recurrent multiple exacerbati ons of acute on chronic systolic decompensated IV milrinone treated congestive heart failure, history of MRSA and Klebsiella, bilateral lower extremity cellulitis, ulceration and chronic venous stasis u lceration, history of normocytic anemia, history of acute kidney injury, history of proteinuria, micr oscopic hematuria, bacteriuria, history of morbid obesity, history of hyperbilirubinemia. history of prediabetes, history of poor compliance, history of indeterminate troponin, history of pulmonary vas cular congestion and congestive heart failure, bibasilar atelectasis. The patient's past medical his tory is also significant for MRSA cellulitis and venous stasis ulceration, history of hypothyroidism, history of acute on chronic systolic congestive heart failure, history of small vessel ischemic dise ase of the brain, history of questionable left bundle branch block versus intraventricular conduction delay, history of pulmonary arterial hypertension, history of moderate tricuspid and mitral regurgit ation, history of gastric bypass and gastric banding. The patient was last seen about a week ago in the office. CURRENT MEDICATIONS: 1. Amitiza 24 mcg twice a day, 2. Coreg 6.25 mg twice a day, 3. Coumadin 7.5 mg daily. 4. Cozaar 100 mg daily. 5. Lasix 40 mg twice a day. 6. Lyrica 50 mg twice a day. 7. Synthroid 25 mcg daily. 8. Flomax 0.4 mg daily. 9. Ultram 50 mg 3 times a day p.r.n. 10. Vitamin D3 2000 units daily. The patient is seen in room 565, bed 1. The patient is lying in the bed. VITAL SIGNS: T-max 98.3, heart rate 74-78, blood pressure initially 186/116, 176/98, 201/131, ____ , 168/84 respiration 18, O2 sat 98%. DIAGNOSTICS: WBC 6.2, hemoglobin and hematocrit is 13.8 and 41.7, platelet 137, granulocytes 79. PT 18.3, INR 1.7, lactic acid 0.8. Sodium 143, potassium 3.8, chloride 102, CO2 30, anion gap 15, BUN 24, creatinine 1.5, GFR 58, glucose 99, total bili 2.4. CPK 61, troponin 0.06. Chest x-ray shows car diomegaly, vascular congestion. EKG shows atrial fibrillation with age-indeterminate septal infarct. The patient was seen in the Emergency Room by the ER physician. The patient was treated in the Emerg ency Room. The patient was seen by Dr. Tijerina. The patient was given clonidine for his blood pres sure. The patient was admitted. IMPRESSION AND PLAN: 1. Uncontrolled accelerated hypertension versus hypertensive urgency. 2. Bilateral lower extremity chronic venous stasis nonhealing and poor healing ulceration. 3. Pseudomonas aeruginosa and methicillin-resistant Staphylococcus aureus lower extremity ulceration . 4. Super morbid obesity with elevated body mass index of greater than 41. 5. Uncontrolled hypertension. 6. Poor compliance. 7. Mild normocytic anemia. 8. Granulocytosis. 9. Coumadin-dependent atrial fibrillation. 10. Acute kidney injury. 11. Hyperbilirubinemia. 12. Atrial fibrillation with age indeterminate septal infarct. 13. Acute recurrent systolic congestive heart failure with cardiomegaly and vascular congestion. 14 . History of constipation. 15. History of hypertension, history of congestive heart failure, history of neuropathy, history of hypothyroidism, history of prostatic hypertrophy, history of hypovitaminosis D. PLAN: At this time, patient received clonidine 0.2 mg in the Emergency Room. The patient was admitt ed to the hospital. Infectious disease, podiatry consultation ordered. The patient will be resumed on Coreg 6.25 twice a day. The patient will be resumed on Coumadin daily, Cozaar 100 mg daily, Flomax 0.4 mg daily, Lasix will be resumed at 40 mg IV q. 12, Lyrica 50 mg twice a day, Synthroid 25 mcg d aily, Teflaro will be ordered 600 mg IV q. 12, vitamin D3 2000 units daily. The patient will be resumed on Ultram. The patient will be ordered Amitiza if it is formulary. The patient will be resumed on Coumadin. The patient will be ordered some repeat labs. The patient at this time was seen. The patient has be en ordered serial labs. Daily PT/INR has been ordered. The patient is seen in Room 565. The patien t will be placed on MRSA isolation. The patient has been ordered serial labs. The patient's further management will be dependent upon the patient's clinical condition, hemodynamic status, and as per p estelaient's response to therapeutic intervention, as per recommendation by infectious disease and podiat ry. The patient has been updated about his condition, diagnosis, treatment plan, need for further di agnostic and therapeutic intervention was explained to the patient at length. All questions and conc erns answered to the patient's satisfaction, which he acknowledged and understands. At this time, th e patient is awaiting further recommendation from podiatry and infectious disease, which will determi ne the patient's course of management during this hospitalization, which has been explained to the giacomo childress in layman's language. All questions and concerns answered. Dictated and electronically signed, not read. Rashad Brown MD cc: [id number] TT: 12/31/2016 22:03:00 jn
[2016-12-31] MEDS: Cefepime IV 2 gm in NS 100 ML IVPB SCH (22:30)
[2016-12-31] MEDS ORDERED: Linezolid 600 mg in D5W 300 ml 300 ML IVPB SCH (22:45)
[2017-01-01 07:09] LABS: ADD MANUAL DIFF? NO; BASO # 0.01 K/mm3 (0.0-2.0); BASO % 0.2 % (0.0-3.0); EOS # 0.1 (0.0-0.7); EOS % 1.2 % (1.5-5.0); GRAN # 4.33 (1.4-6.5); GRAN % 76.1 % (50.0-68.0); HEMATOCRIT 37.1 % (42.0-52.0); LYMPH # 0.9 (1.2-3.4); LYMPH % 15.6 % (22.0-35.0); MEAN CELL VOLUME 92.1 fL (80.0-105.0); MEAN CORPUSCULAR HEMOGLOBIN 30.8 pg (25.0-35.0); MEAN CORPUSCULAR HGB CONC 33.4 g/dl (31.0-37.0); MEAN PLATELET VOLUME 9.7 fl (7.0-11.0); MONO # 0.4 (0.1-0.6); MONO % 6.9 % (1.0-6.0); PLATELET COUNT 131 10^3/uL (120.0-450.0); RED CELL DISTRIBUTION WIDTH 15.1 % (11.5-14.5); WHITE BLOOD COUNT 5.7 10^3/ul (4.5-11.0)
[2017-01-01 07:12] LABS: INR 1.9 (0.93-1.08); PARTIAL THROMBOPLASTIN TIME 32.9 Seconds (23.7-30.8)
[2017-01-01 07:34] LABS: ALKALINE PHOSPHATASE 78 U/L (38-133); ALT/SGPT 26 U/L (7-56); AST/SGOT 21 U/L (15-59); BILIRUBIN,DIRECT 0.8 mg/dL (0.0-0.4); BILIRUBIN,TOTAL 2.1 mg/dL (0.2-1.3); BLOOD UREA NITROGEN 23 mg/dL (7-21); CALCIUM 8.7 mg/dL (8.4-10.5); CARBON DIOXIDE 28 mmol/L (21-33); CHLORIDE 103 mmol/L (98-107); GFR AFRICAN-AMERICAN > 60; GLUCOSE,RANDOM 104 mg/dL (70-110); MAGNESIUM 1.8 mg/dL (1.7-2.2); POTASSIUM 3.3 mmol/L (3.6-5.0); SODIUM 140 mmol/L (132-148); TOTAL PROTEIN 6.9 g/dL (5.8-8.3)
[2017-01-01 07:57] VITALS: RESP 20
[2017-01-01] MEDS: POLYETHYLENE GLYCOL 3350 17 GM/Dose PACKET PO SCH ×2 (09:54→17:18)
[2017-01-01] MEDS: Potassium Chloride 40 mEq/30 ml LIQ UD PO SCH ×2 (09:54→12:59)
[2017-01-01] MEDS: Levothyroxine 25 MCG TAB PO SCH (09:56)
--- NOTE | 2017-01-01 11:25 | CARD ---
APPROVED REPORT EKG Measurement Heart [id number] <Conclusion> Atrial fibrillation with a competing junctional pacemaker Septal infarct, age undetermined Abnormal ECG
--- NOTE | 2017-01-01 11:31 | PN ---
DATE: 01/01/2017 The patient is seen in room 2565, bed 1. The patient is out of bed to chair. The patient is alert, awake, responsive, does not appear to be in any distress. Overnight nurse's notes were reviewed. The patient did not have any adverse events documented, slept well. PHYSICAL EXAMINATION: VITAL SIGNS: T-max 98.3, heart rate 64-72, blood pressure 169/99, 160/90, 160/ 84, 151/84, respirations 20, O2 sat 96%. Intake and output not documented. HEAD: Normocephalic, atraumatic. HEENT: Shows pink conjunctivae. Anicteric sclerae. No oropharyngeal lesion. NECK: No neck rigidity. CHEST: Kyphosis. LUNGS: Shows decreased breath sounds at the bases, positive rhonchi, positive fine and crackles. CARDIOVASCULAR: Shows S1, S2, irregular rhythm, positive systolic murmur right second intercostal space, left sternal border. ABDOMEN: Morbidly obese. GENITALIA: Male. RECTAL: Deferred. EXTREMITIES: Shows positive dressing, positive pitting edema, positive lymphedema. MUSCULOSKELETAL: Shows a body mass index of 42. NEUROLOGIC: The patient is alert, awake, oriented x 3. Cranial nerves II-XII intact, limited. PSYCHIATRIC: Negative for anxiety, depression. Negative for auditory or visual hallucinations. Negative for suicidal or homicidal ideation. VASCULAR: Cannot be assessed. GAIT: Independent as per nurses' notes. DIAGNOSTICS: 01/01, WBC 5.7, hemoglobin and hematocrit 12.4 and 37.1, platelets 131. granulocytes 76. PT is 20.5, INR 1.9. Sodium 140, potassium 3.3, chloride 103, CO2 28, anion gap 12, BUN 23, creatinine 1.4, GFR greater than 60, glucose 104, calcium 8.7, magnesium 1.8, total bili 2.1, direct bili 0.8. BNP is 3500. IMPRESSION AND PLAN: 1. Status post uncontrolled accelerated hypertension versus hypertensive urgency. 2. Bilateral lower extremity chronic venous stasis nonhealing and poorly healing ulceration. 3. Pseudomonas aeruginosa and methicillin-resistant Staphylococcus aureus lower extremity cellulitis and stasis ulceration. 4. Hypertension. 5. Super morbid obesity with elevated body mass index of 42. 6. Normocytic anemia. 7. Granulocytosis. 8. Coumadin dependent atrial fibrillation. 9. Hypokalemia. 10. Acute kidney injury with underlying chronic kidney disease. 11. Hyperbilirubinemia. 12. Acute recurrent systolic congestive heart failure with elevated BNP. 13. Cardiomegaly. 14. Atrial fibrillation with age indeterminate septal infarct, rate controlled. 15. History of hypothyroidism, history of prostate hypertrophy, history of neuropathy, history of constipation, history of hypovitaminosis D. . Uncontrolled accelerated hypertension versus hypertensive urgency. 2. Bilateral lower extremity chronic venous stasis nonhealing and poor healing ulceration. 3. Pseudomonas aeruginosa and methicillin-resistant Staphylococcus aureus lower extremity ulceration. 4. Super morbid obesity with elevated body mass index of greater than 41. 5. Uncontrolled hypertension. 6. Poor compliance. 7. Mild normocytic anemia. 8. Granulocytosis. 9. Coumadin-dependent atrial fibrillation. 10. Acute kidney injury. 11. Hyperbilirubinemia. 12. Atrial fibrillation with age indeterminate septal infarct. 13. Acute recurrent systolic congestive heart failure with cardiomegaly and vascular congestion. 14. History of constipation. 15. History of hypertension, history of congestive heart failure, history of neuropathy, history of hypothyroidism, history of prostatic hypertrophy, history of hypovitaminosis D. PLAN: At this time, the patient has been ordered serial labs. Current consultations infectious disease and podiatry. Current medications: Coreg 6.25 mg twice a day, Coumadin increased to 7.5 mg daily to achieve INR of 2.0- 2.5, Cozaar 100 mg daily, Flomax 0.4 mg daily, K-Dur 20 mEq twice a day ordered , Lasix 40 mg IV q. 12, Lyrica 50 mg twice a day, cefepime 2 grams IV q. 8 hours ordered by infectious disease, MiraLax 17 g twice a day, Synthroid 25 mcg daily, vitamin D3 2000 units daily. The patient is ordered Zyvox 600 mg IV q. 12. The patient is on heart-healthy diet, out of bed. The patient's case will be referred for TCU evaluation. The patient's case will be referred for physical therapy evaluation. The patient's case will also be ordered for occupational therapy evaluation. At present, the patient will be continued on the above therapeutic intervention. Dictated and electronically signed, not read. Rashad Brown MD cc: [id number] TT: 01/01/2017 11:31:03 Confirmation # [id number] Dictation # [id number] SHARON
[2017-01-01] MEDS: Linezolid 600 mg in D5W 300 ml 600 MG/300 ML BAG IVPB SCH (12:59)
--- NOTE | 2017-01-01 13:04 | CP.PCM.CON ---
<Caroline Schwab - Last Filed: 01/01/17 12:57> History of Present Illness - History of Present Illness History of Present Illness: 61 year old male, whose past medical history includes hypertension, seen at bedside with attending Dr. Byers for right leg ulceration. Patient was sent from the wound care center yesterday by Dr. Sebastian for uncontrolled bp and infected right leg ulceration. Patient denies any other pedal complaints. He denies any acute events overnight. Patient is feeling better now that he is taking medication. Patient denies any n/f/v/c/d/sob. Review of Systems - Constitutional Constitutional: As Per HPI Past Patient History - Infectious Disease Hx of Infectious Diseases: None - Tetanus Immunizations Tetanus Immunization: Unknown - Past Social History Smoking Status: Never Smoked - CARDIAC Hx Cardiac Disorders: Yes Hx Cardia Arrhythmia: Yes Hx Congestive Heart Failure: Yes Hx Hypertension: Yes Hx Peripheral Edema: Yes (b/l lower extremity lymphadema) Other/Comment: venous stasis ble - PULMONARY Hx Respiratory Disorders: Yes Other/Comment: sob - NEUROLOGICAL Hx Neurological Disorder: No - HEENT Hx HEENT Problems: No - RENAL Hx Chronic Kidney Disease: Yes ("born with one kidney") - ENDOCRINE/METABOLIC Hx Endocrine Disorders: No - HEMATOLOGICAL/ONCOLOGICAL Hx Blood Disorders: No - INTEGUMENTARY Hx Dermatological Problems: Yes (CELLULITIS TO LOWER EXTREMITY) Other/Comment: bilateral lower ext lymphedema, with stasis ulcers to bilateral legs which are now healed, pt now has a scratch to outer left calf which is draining clear drainage, both lower legs have drk skin discolorations - MUSCULOSKELETAL/RHEUMATOLOGICAL Hx Falls: Yes - GASTROINTESTINAL Hx Gastrointestinal Disorders: No - GENITOURINARY/GYNECOLOGICAL Hx Genitourinary Disorders: No - PSYCHIATRIC Hx Psychophysiologic Disorder: Yes Hx Depression: Yes Hx Emotional Abuse: No Hx Physical Abuse: No Hx Substance Use: Yes - SURGICAL HISTORY Hx Gastric Bypass Surgery: Yes (Lap band) Hx Orthopedic Surgery: Yes Other/Comment: left knee sx for torn ligament and cartilige, lap band 5 yrs ago "weight went up and down" - ANESTHESIA Hx Anesthesia: Yes Hx Anesthesia Reactions: No Hx Malignant Hyperthermia: No Meds Allergies/Adverse Reactions: Allergies Allergy/AdvReac Type Severity Reaction Status Date / Time No Known Allergies Allergy Verified 12/31/16 13:16 - Medications Medications: Current Medications Carvedilol (Coreg) 6.25 mg PO BID [facility] Last Admin: 01/01/17 09:56 Dose: 6.25 mg Cholecalciferol (Vitamin D) 2,000 iu PO DAILY [facility] Last Admin: 01/01/17 09:54 Dose: 2,000 iu Furosemide (Lasix) 40 mg IVP Q12 [facility] Last Admin: 01/01/17 09:56 Dose: 40 mg Cefepime HCl (Maxipime 2gm) 100 mls @ 100 mls/hr IVPB Q8 [facility] PRN Reason: Protocol Stop: 01/05/17 22:46 Last Admin: 12/31/16 22:30 Dose: 100 mls/hr Linezolid (Zyvox 600mg/300ml D5w) 600 mg in 300 mls @ 200 mls/hr IVPB Q12 [facility] PRN Reason: Protocol Stop: 01/08/17 11:01 Levothyroxine Sodium (Synthroid) 25 mcg PO DAILY [facility] Last Admin: 01/01/17 09:56 Dose: 25 mcg Losartan Potassium (Cozaar) 100 mg PO DAILY [facility] Last Admin: 01/01/17 09:54 Dose: 100 mg Polyethylene Glycol (Miralax) 17 gm PO BID [facility] Last Admin: 01/01/17 09:54 Dose: 17 gm Potassium Chloride (K-Dur 20 Meq Er Tab) 20 meq PO BID [facility] Pregabalin (Lyrica) 50 mg PO BID [facility] Last Admin: 01/01/17 09:54 Dose: 50 mg Tamsulosin HCl (Flomax) 0.4 mg PO DAILY [facility] Last Admin: 01/01/17 09:54 Dose: 0.4 mg Warfarin Sodium (Coumadin) 7.5 mg PO 1800 [facility] Physical Exam - Constitutional Appears: Well, Non-toxic, No Acute Distress - Extremities Exam Additional comments: Vasc: nonpalpable pedal pulses b/l, TG wnl, CFT < 3 sec to all digits, +2 pitting edema neuro: grossly diminished derm: +2 pitting edema, mild localized erythema, superficial ulcerations raning from 2.5cm x 3 cm x 0.2 to smaller like 0.5cm x 0.5cm x 0.2 cm on the right lateral leg, granular base, fibrotic border, mild serous drainage, no purulence , no probe to bone, no tunneling, no ascending cellulitis ortho: mild pain to palpation of right lateral leg - Neurological Exam Neurological exam: Alert, Oriented x3 - Psychiatric Exam Psychiatric exam: Normal Affect, Normal Mood Results - Vital Signs Recent Vital Signs: Last Vital Signs Temp 98.0 F 01/01/17 07:30 Pulse 64 01/01/17 07:30 Resp 20 01/01/17 07:30 BP 169/99 H 01/01/17 07:30 Pulse Ox 96 01/01/17 07:30 - Labs Result Diagrams: 01/01/17 05:00 01/01/17 06:45 Labs: Laboratory Results - last 24 hr 01/01/17 01/01/17 01/01/17 05:00 06:45 06:45 WBC 5.7 RBC 4.03 Hgb 12.4 L Hct 37.1 L MCV 92.1 MCH 30.8 MCHC 33.4 RDW 15.1 H Plt Count 131 MPV 9.7 Gran % 76.1 H Lymph % (Auto) 15.6 L [place] % (Auto) 6.9 H Eos % (Auto) 1.2 L Baso % (Auto) 0.2 Gran # 4.33 Lymph # 0.9 L [place] # 0.4 Eos # 0.1 Baso # 0.01 PT 20.5 H INR 1.90 H APTT 32.9 H Sodium 140 Potassium 3.3 L Chloride 103 Carbon Dioxide 28 Anion Gap 12 BUN 23 H Creatinine 1.4 Est GFR ( Amer) > 60 Est GFR (Non-Af Amer) 52 Random Glucose 104 Calcium 8.7 Magnesium 1.8 Total Bilirubin 2.1 H Direct Bilirubin 0.8 H AST 21 ALT 26 Alkaline Phosphatase 78 NT-Pro-B Natriuret Pep 3500 H Total Protein 6.9 Albumin 3.5 Globulin 3.4 Albumin/Globulin Ratio 1.0 L Assessment & Plan - Assessment and Plan (Free Text) Assessment: 61 y/o male seen at bedside for right leg venous stasis ulceration Plan: patient evaluated and chart reviewed seen at bedside with attending Dr. Byers labs and vitals reviewed continue IV abx as per ID applied xeroform, DSD, ABD, kerlix, HECTOR to RLE patient to continue compression dressings to extremities podiatry will continue to monitor while patient remains in house <Arloro,Vincent - Last Filed: 01/01/17 15:15> Meds - Medications Medications: Current Medications Carvedilol (Coreg) 6.25 mg PO BID [facility] Last Admin: 01/01/17 09:56 Dose: 6.25 mg Cholecalciferol (Vitamin D) 2,000 iu PO DAILY [facility] Last Admin: 01/01/17 09:54 Dose: 2,000 iu Furosemide (Lasix) 40 mg IVP Q12 [facility] Last Admin: 01/01/17 09:56 Dose: 40 mg Cefepime HCl (Maxipime 2gm) 100 mls @ 100 mls/hr IVPB Q8 [facility] PRN Reason: Protocol Stop: 01/05/17 22:46 Last Admin: 01/01/17 14:48 Dose: 100 mls/hr Linezolid (Zyvox 600mg/300ml D5w) 600 mg in 300 mls @ 200 mls/hr IVPB Q12 [facility] PRN Reason: Protocol Stop: 01/08/17 11:01 Last Admin: 01/01/17 12:59 Dose: 200 mls/hr Levothyroxine Sodium (Synthroid) 25 mcg PO DAILY [facility] Last Admin: 01/01/17 09:56 Dose: 25 mcg Losartan Potassium (Cozaar) 100 mg PO DAILY [facility] Last Admin: 01/01/17 09:54 Dose: 100 mg Polyethylene Glycol (Miralax) 17 gm PO BID [facility] Last Admin: 01/01/17 09:54 Dose: 17 gm Potassium Chloride (K-Dur 20 Meq Er Tab) 20 meq PO BID [facility] Pregabalin (Lyrica) 50 mg PO BID [facility] Last Admin: 01/01/17 09:54 Dose: 50 mg Tamsulosin HCl (Flomax) 0.4 mg PO DAILY [facility] Last Admin: 01/01/17 09:54 Dose: 0.4 mg Warfarin Sodium (Coumadin) 7.5 mg PO 1800 [facility] Results - Vital Signs Recent Vital Signs: Last Vital Signs Temp 98.0 F 01/01/17 07:30 Pulse 64 01/01/17 07:30 Resp 20 01/01/17 07:30 BP 169/99 H 01/01/17 07:30 Pulse Ox 96 01/01/17 07:30 - Labs Result Diagrams: 01/01/17 05:00 01/01/17 06:45 Labs: Laboratory Results - last 24 hr 01/01/17 01/01/17 01/01/17 05:00 06:45 06:45 WBC 5.7 RBC 4.03 Hgb 12.4 L Hct 37.1 L MCV 92.1 MCH 30.8 MCHC 33.4 RDW 15.1 H Plt Count 131 MPV 9.7 Gran % 76.1 H Lymph % (Auto) 15.6 L [place] % (Auto) 6.9 H Eos % (Auto) 1.2 L Baso % (Auto) 0.2 Gran # 4.33 Lymph # 0.9 L [place] # 0.4 Eos # 0.1 Baso # 0.01 PT 20.5 H INR 1.90 H APTT 32.9 H Sodium 140 Potassium 3.3 L Chloride 103 Carbon Dioxide 28 Anion Gap 12 BUN 23 H Creatinine 1.4 Est GFR ( Amer) > 60 Est GFR (Non-Af Amer) 52 Random Glucose 104 Calcium 8.7 Magnesium 1.8 Total Bilirubin 2.1 H Direct Bilirubin 0.8 H AST 21 ALT 26 Alkaline Phosphatase 78 NT-Pro-B Natriuret Pep 3500 H Total Protein 6.9 Albumin 3.5 Globulin 3.4 Albumin/Globulin Ratio 1.0 L Attending/Attestation - Attestation I have personally seen and examined this patient.: Yes I have fully participated in the care of the patient.: Yes I have reviewed all pertinent clinical information: Yes
[2017-01-01 13:08] VITALS: BMI 55.5
[2017-01-01] MEDS: Cefepime IV 2 gm in NS 100 ML IVPB SCH ×2 (14:48→21:37)
--- NOTE | 2017-01-01 21:00 | CP.PCM.CON ---
History of Present Illness - History of Present Illness History of Present Illness: 61 year old male with PMH of chronic systolic CHF with EF 25%, chronic atrial fibrillation, chronic lymphedema with chronic venous stasis, COPD, HTN, history of gastric bypass surgery, history of left knee surgery was seen in the [facility] yesterday and was told he needed to be admitted because of non-healing ulcers on the right leg. He has been on antibiotics and yet the ulcers are not healing well. He denies animal contacts, no wading in water, no walking barefoot on soil, no fever or chills, no nausea or vomiting, no chest pain, no SOB, no headache or dizziness, no abdominal pain, no dysuria, no diarrhea. Infectious diseases consult is requested to further evaluate and manage. Social History: no smoking, occasional alcohol intake, no illicit drug use; lives at home; has not traveled outside of [place] in the past 3 months, denies specific animal contacts Review of Systems - Review of Systems All systems: reviewed and no additional remarkable complaints except (as per HPI ) Past Patient History - Infectious Disease Hx of Infectious Diseases: None - Tetanus Immunizations Tetanus Immunization: Unknown - Past Social History Smoking Status: Never Smoked - CARDIAC Hx Cardiac Disorders: Yes Hx Cardia Arrhythmia: Yes Hx Congestive Heart Failure: Yes Hx Hypertension: Yes Hx Peripheral Edema: Yes (b/l lower extremity lymphadema) Other/Comment: venous stasis ble - PULMONARY Hx Respiratory Disorders: Yes Other/Comment: sob - NEUROLOGICAL Hx Neurological Disorder: No - HEENT Hx HEENT Problems: No - RENAL Hx Chronic Kidney Disease: Yes ("born with one kidney") - ENDOCRINE/METABOLIC Hx Endocrine Disorders: No - HEMATOLOGICAL/ONCOLOGICAL Hx Blood Disorders: No - INTEGUMENTARY Hx Dermatological Problems: Yes (CELLULITIS TO LOWER EXTREMITY) Other/Comment: bilateral lower ext lymphedema, with stasis ulcers to bilateral legs which are now healed, pt now has a scratch to outer left calf which is draining clear drainage, both lower legs have drk skin discolorations - MUSCULOSKELETAL/RHEUMATOLOGICAL Hx Falls: Yes - GASTROINTESTINAL Hx Gastrointestinal Disorders: No - GENITOURINARY/GYNECOLOGICAL Hx Genitourinary Disorders: No - PSYCHIATRIC Hx Psychophysiologic Disorder: Yes Hx Depression: Yes Hx Emotional Abuse: No Hx Physical Abuse: No Hx Substance Use: Yes - SURGICAL HISTORY Hx Gastric Bypass Surgery: Yes (Lap band) Hx Orthopedic Surgery: Yes Other/Comment: left knee sx for torn ligament and cartilige, lap band 5 yrs ago "weight went up and down" - ANESTHESIA Hx Anesthesia: Yes Hx Anesthesia Reactions: No Hx Malignant Hyperthermia: No Meds Allergies/Adverse Reactions: Allergies Allergy/AdvReac Type Severity Reaction Status Date / Time No Known Allergies Allergy Verified 12/31/16 13:16 - Medications Medications: Current Medications Carvedilol (Coreg) 6.25 mg PO BID [facility] Last Admin: 12/31/16 20:43 Dose: 6.25 mg Cholecalciferol (Vitamin D) 2,000 iu PO DAILY [facility] Furosemide (Lasix) 40 mg IVP Q12 [facility] Last Admin: 12/31/16 16:54 Dose: 40 mg Cefepime HCl (Maxipime 2gm) 100 mls @ 100 mls/hr IVPB Q8 [facility] PRN Reason: Protocol Stop: 01/05/17 22:46 Linezolid (Zyvox 600mg/300ml D5w) 300 mls @ 200 mls/hr IVPB Q12 [facility] PRN Reason: Protocol Stop: 01/01/17 00:14 Levothyroxine Sodium (Synthroid) 25 mcg PO DAILY [facility] Last Admin: 12/31/16 16:55 Dose: 25 mcg Losartan Potassium (Cozaar) 100 mg PO DAILY [facility] Last Admin: 12/31/16 16:54 Dose: 100 mg Polyethylene Glycol (Miralax) 17 gm PO BID [facility] Last Admin: 12/31/16 21:57 Dose: 17 gm Pregabalin (Lyrica) 50 mg PO BID [facility] Last Admin: 12/31/16 20:43 Dose: 50 mg Tamsulosin HCl (Flomax) 0.4 mg PO DAILY [facility] Last Admin: 12/31/16 16:54 Dose: 0.4 mg Warfarin Sodium (Coumadin) 5 mg PO DAILY [facility] PRN Reason: Protocol Physical Exam - Constitutional Appears: Non-toxic, No Acute Distress - Head Exam Head Exam: NORMAL INSPECTION - ENT Exam ENT Exam: Mucous Membranes Moist - Neck Exam Neck exam: Negative for: Lymphadenopathy, Meningismus - Respiratory Exam Respiratory Exam: Decreased Breath Sounds - Cardiovascular Exam Cardiovascular Exam: +S1, +S2 - GI/Abdominal Exam GI & Abdominal Exam: Soft. absent: Tenderness - Extremities Exam Additional comments: both legs with dry dressings in place Results - Vital Signs Recent Vital Signs: Last Vital Signs Temp 98.3 F 12/31/16 13:40 Pulse 72 12/31/16 20:43 Resp 18 12/31/16 19:50 BP 166/84 H 12/31/16 20:43 Pulse Ox 98 12/31/16 17:50 - Labs Result Diagrams: 01/01/17 05:00 01/01/17 06:45 Assessment & Plan - Assessment and Plan (Free Text) Plan: Assessment right leg infected venous stasis ulcers, with recent cultures on 12/24/2016 showing MRSA and Pseudomonas history of left lower extremity skin and skin structure infection with Klebsiella and MRSA in a patient with chronic venous stasis ulcers with no evidence of abscess or osteomyelitis on MRI, clinically improving Probable CHF exacerbation chronic systolic CHF with EF 25% chronic atrial fibrillation chronic lymphedema with chronic venous stasis COPD HTN history of gastric bypass surgery history of left knee surgery Plan started patient on zyvox and Cefepime pending wound cx and blood cx Reviewed Podiatry evaluation Will monitor clinically
[2017-01-02] MEDS: Cefepime IV 2 gm in NS 100 ML IVPB SCH ×3 (05:45→21:30)
[2017-01-02 06:53] LABS: ADD MANUAL DIFF? NO
[2017-01-02 07:07] LABS: BILIRUBIN,DIRECT 0.7 mg/dL (0.0-0.4); BILIRUBIN,TOTAL 2.4 mg/dL (0.2-1.3); CALCIUM 8.7 mg/dL (8.4-10.5); MAGNESIUM 1.8 mg/dL (1.7-2.2); POTASSIUM 3.7 mmol/L (3.6-5.0); TOTAL PROTEIN 7.2 g/dL (5.8-8.3)
[2017-01-02 07:08] LABS: INR 1.8 (0.93-1.08); PARTIAL THROMBOPLASTIN TIME 33.1 Seconds (23.7-30.8)
[2017-01-02 07:13] LABS: BASO # 0.01 K/mm3 (0.0-2.0); BASO % 0.2 % (0.0-3.0); EOS # 0.1 (0.0-0.7); EOS % 1.8 % (1.5-5.0); GRAN % 72.2 % (50.0-68.0); HEMATOCRIT 39.8 % (42.0-52.0); LYMPH % 17.3 % (22.0-35.0); MEAN CELL VOLUME 92.8 fL (80.0-105.0); MEAN CORPUSCULAR HEMOGLOBIN 30.5 pg (25.0-35.0); MEAN CORPUSCULAR HGB CONC 32.9 g/dl (31.0-37.0); MEAN PLATELET VOLUME 10.8 fl (7.0-11.0); MONO # 0.5 (0.1-0.6); MONO % 8.5 % (1.0-6.0); PLATELET COUNT 141 10^3/uL (120.0-450.0); RED CELL DISTRIBUTION WIDTH 15.3 % (11.5-14.5); WHITE BLOOD COUNT 5.5 10^3/ul (4.5-11.0)
--- NOTE | 2017-01-02 10:15 | CP.PCM.PN ---
<Caroline Schwab - Last Filed: 01/02/17 10:13> Subjective - Date & Time of Evaluation Date of Evaluation: 01/02/17 Time of Evaluation: 10:13 - Subjective Subjective: 61 year old male, whose past medical history includes hypertension, seen at bedside with attending Dr. Sebastian for right leg ulceration. Patient states that his bloodpressure medication was increased to stabilize his elevated bp. Patient denies any other pedal complaints. He denies any acute events overnight. Patient is feeling better now that he is taking medication. Patient denies any n/f/v/c/d/sob. Objective - Vital Signs/Intake and Output Vital Signs (last 24 hours): Temp Pulse Resp BP Pulse Ox 97.6 F 67 20 157/92 H 95 01/02/17 07:25 01/02/17 07:25 01/02/17 07:25 01/02/17 07:25 01/02/17 07:25 Intake and Output: 01/02/17 01/02/17 06:59 18:59 Intake Total 620 Output Total 650 Balance -30 - Medications Medications: Current Medications Carvedilol (Coreg) 6.25 mg PO BID [facility] Last Admin: 01/01/17 17:17 Dose: 6.25 mg Cholecalciferol (Vitamin D) 2,000 iu PO DAILY [facility] Last Admin: 01/01/17 09:54 Dose: 2,000 iu Diphenhydramine HCl (Benadryl) 25 mg IM HS [facility] Furosemide (Lasix) 40 mg IVP Q12 [facility] Last Admin: 01/01/17 21:42 Dose: Not Given Cefepime HCl (Maxipime 2gm) 100 mls @ 100 mls/hr IVPB Q8 [facility] PRN Reason: Protocol Stop: 01/05/17 22:46 Last Admin: 01/02/17 05:45 Dose: 100 mls/hr Linezolid (Zyvox 600mg/300ml D5w) 600 mg in 300 mls @ 200 mls/hr IVPB Q12 [facility] PRN Reason: Protocol Stop: 01/08/17 11:01 Last Admin: 01/01/17 12:59 Dose: 200 mls/hr Levothyroxine Sodium (Synthroid) 25 mcg PO DAILY [facility] Last Admin: 01/01/17 09:56 Dose: 25 mcg Lidocaine (Lidoderm) 1 ea TD DAILY [facility] Losartan Potassium (Cozaar) 100 mg PO DAILY [facility] Last Admin: 01/01/17 09:54 Dose: 100 mg Polyethylene Glycol (Miralax) 17 gm PO BID [facility] Last Admin: 01/01/17 17:18 Dose: Not Given Potassium Chloride (K-Dur 20 Meq Er Tab) 20 meq PO BID [facility] Pregabalin (Lyrica) 50 mg PO BID [facility] Last Admin: 01/01/17 17:17 Dose: 50 mg Tamsulosin HCl (Flomax) 0.4 mg PO DAILY [facility] Last Admin: 01/01/17 09:54 Dose: 0.4 mg Tramadol HCl (Ultram) 50 mg PO TID [facility] PRN Reason: Pain, moderate (4-7) Warfarin Sodium (Coumadin) 7.5 mg PO 1800 [facility] Last Admin: 01/01/17 17:17 Dose: 7.5 mg - Labs Labs: 01/02/17 05:00 01/02/17 05:00 PT 19.4 Seconds (9.9-11.8) H 01/02/17 05:00 INR 1.80 (0.93-1.08) H 01/02/17 05:00 APTT 33.1 Seconds (23.7-30.8) H 01/02/17 05:00 - Constitutional Appears: Well, Non-toxic, No Acute Distress - Extremities Exam Additional comments: Vasc: nonpalpable pedal pulses b/l, TG wnl, CFT < 3 sec to all digits, +2 pitting edema neuro: grossly diminished derm: +2 pitting edema, mild localized erythema, superficial ulcerations raning from 2.5cm x 3 cm x 0.2 to smaller like 0.5cm x 0.5cm x 0.2 cm on the right lateral leg, granular base, fibrotic border, mild serous drainage, no purulence , no probe to bone, no tunneling, no ascending cellulitis ortho: mild pain to palpation of right lateral leg - Neurological Exam Neurological Exam: Alert, Awake, Oriented x3 - Psychiatric Exam Psychiatric exam: Normal Affect, Normal Mood Assessment and Plan - Assessment and Plan (Free Text) Assessment: 61 y/o male seen at bedside for right leg venous stasis ulceration Plan: patient evaluated and chart reviewed seen at bedside with attending Dr. Sebastian labs and vitals reviewed continue IV abx as per ID applied xeroform, DSD, ABD, kerlix, HECTOR to RLE patient to continue compression dressings to extremities patient stable from podiatry [facility] and instructed to follow up at wound care center upon discharge podiatry will continue to monitor while patient remains in house <Anusha Sebastian - Last Filed: 01/13/17 14:10> Objective - Vital Signs/Intake and Output Vital Signs (last 24 hours): Temp Pulse Resp BP Pulse Ox 98.8 F 87 20 94/74 L 98 01/03/17 16:00 01/03/17 17:04 01/03/17 16:00 01/03/17 17:04 01/03/17 16:00 - Labs Labs: 01/02/17 05:00 01/03/17 07:00 PT 16.8 Seconds (9.9-11.8) H 01/03/17 07:00 INR 1.56 (0.93-1.08) H 01/03/17 07:00 APTT 32.1 Seconds (23.7-30.8) H 01/03/17 07:00 Attending/Attestation - Attestation I have personally seen and examined this patient.: Yes I have fully participated in the care of the patient.: Yes I have reviewed all pertinent clinical information, including history, physical exam and plan: Yes
[2017-01-02] MEDS: Linezolid 600 mg in D5W 300 ml 600 MG/300 ML BAG IVPB SCH ×2 (11:18→22:23)
[2017-01-02] MEDS: POLYETHYLENE GLYCOL 3350 17 GM/Dose PACKET PO SCH ×2 (11:19→18:40)
[2017-01-02] MEDS: Lidocaine 5% Patch TD SCH (11:20)
[2017-01-02] MEDS: Potassium Chloride 20 mEq ER Tab PO SCH ×2 (11:22→17:54)
[2017-01-02] MEDS: Levothyroxine 25 MCG TAB PO SCH (11:23)
--- NOTE | 2017-01-02 14:32 | PN ---
DATE: 01/02/2017 The patient is seen in room 565, bed 1. The patient is in MRSA isolation. The patient is out of bed to chair. Overnight nurse's notes were reviewed. The patient required Benadryl for sleep and Tylenol for pain. Otherwise, no adverse event documented. PHYSICAL EXAMINATION: VITAL SIGNS: T-max 98.0, pulse 67-69, blood pressure 157/92, 134/85, 157/92, respirations 20, O2 sat 95%. INTAKE OUTPUT: Does not appear to be correctly documented. HEAD: Normocephalic, atraumatic. HEENT: Shows pinkish conjunctivae, anicteric sclerae. No oropharyngeal lesion. NECK: No neck rigidity. CHEST: Kyphosis. LUNGS: Shows decreasing crackles, rales and improving breath sounds at the bases. CARDIOVASCULAR: Shows S1, S2, irregular rhythm. ABDOMEN: Morbidly obese. GENITALIA: Male. RECTAL: Deferred. EXTREMITIES: Shows positive dressing of the lower extremity. Positive lymphedema. MUSCULOSKELETAL: Shows a body mass index of 56. Gait examination is independent. VASCULAR: Could not be tested. NEUROLOGIC: The patient is alert, awake, oriented x 3. Cranial nerves II-XII intact. Gait examination is independent. DIAGNOSTICS: From 01/02, WBC 5.5, hemoglobin/hematocrit is relatively steady at 13.1 and 39.8, platelet 141, granulocytes 73. PT is 19.4, INR 1.8, PTT 33, sodium 140, potassium is up to 3.7, chloride 103, CO2 of 26, anion gap 15, BUN 23, creatinine 1.5, GFR 58, glucose 93, calcium 8.7, magnesium 1.8, total bili 2.4. LFTs otherwise normal. ProBNP 3080, down from 3500. Blood cultures no growth. IMPRESSION AND PLAN: 1. Bilateral lower extremity infected venous stasis ulceration secondary to methicillin-resistant Staphylococcus aureus and Pseudomonas aeruginosa. 2. Pseudomonas aeruginosa and Methicillin-resistant Staphylococcus aureus right leg chronic venous stasis ulceration. 3. Super morbid obesity with elevated body mass index of greater than 55. 4. Status post uncontrolled hypertension. 5. Coumadin dependent atrial fibrillation. 6. Normocytic anemia with granulocytosis. 7. Hypokalemia. 8. Acute kidney injury with underlying chronic kidney disease stage III. 9. Hyperbilirubinemia. 10. Acute recurrent systolic congestive heart failure with elevated BNP. 11. Bilateral lower extremity venous stasis ulceration with right lower extremity Pseudomonas aeruginosa and methicillin-resistant right lower extremity chronic venous stasis ulceration infection. 12. Insomnia. 13. Lumbar spine degenerative disk disease with low back pain syndrome. 1. Status post uncontrolled accelerated hypertension versus hypertensive urgency. 2. Bilateral lower extremity chronic venous stasis nonhealing and poorly healing ulceration. 3. Pseudomonas aeruginosa and methicillin-resistant Staphylococcus aureus lower extremity cellulitis and stasis ulceration. 4. Hypertension. 5. Super morbid obesity with elevated body mass index of 42. 6. Normocytic anemia. 7. Granulocytosis. 8. Coumadin dependent atrial fibrillation. 9. Hypokalemia. 10. Acute kidney injury with underlying chronic kidney disease. 11. Hyperbilirubinemia. 12. Acute recurrent systolic congestive heart failure with elevated BNP. 13. Cardiomegaly. 14. Atrial fibrillation with age indeterminate septal infarct, rate controlled. 15. History of hypothyroidism, history of prostate hypertrophy, history of neuropathy, history of constipation, history of hypovitaminosis D. 1. Uncontrolled accelerated hypertension versus hypertensive urgency. 2. Bilateral lower extremity chronic venous stasis nonhealing and poor healing ulceration. 3. Pseudomonas aeruginosa and methicillin-resistant Staphylococcus aureus lower extremity ulceration. 4. Super morbid obesity with elevated body mass index of greater than 41. 5. Uncontrolled hypertension. 6. Poor compliance. 7. Mild normocytic anemia. 8. Granulocytosis. 9. Coumadin-dependent atrial fibrillation. 10. Acute kidney injury. 11. Hyperbilirubinemia. 12. Atrial fibrillation with age indeterminate septal infarct. 13. Acute recurrent systolic congestive heart failure with cardiomegaly and vascular congestion. 14. History of constipation. 15. History of hypertension, history of congestive heart failure, history of neuropathy, history of hypothyroidism, history of prostatic hypertrophy, history of hypovitaminosis D. At this time, patient has been ordered serial labs. CURRENT CONSULTATIONS: Infectious disease, podiatry. Referral to TCU made. MEDICATIONS: Plan at this time, the patient is to be started on: 1. Benadryl 25 mg IM at bedtime. 2. Coreg 6.25 twice a day. 3. Coumadin 7.5 mg daily. 4. Cozaar 100 mg daily. 5. Flomax 0.4 mg daily. 6. K-Dur 20 mEq twice a day. 7. Lasix 40 mg IV q. 12. 8. Lidoderm 5% patch to the lumbar spine area daily. 9. Lyrica 50 mg twice a day. 10. Cefepime 2 grams IV q. [address] Wheeler. 11. MiraLax 17 g twice a day. 12. Synthroid 25 mcg daily. 13. Ultram 50 mg t.i.d. p.r.n. 14. Vitamin D3 2000 International Units daily. 15. The patient is on Zyvox 600 mg IV q. 12. The patient's pseudomonas aeruginosa and MRSA is sensitive to vancomycin and cefepime. At present, patient will be continued on the above therapeutic options. The patient's case is also referred for TCU, physical therapy, occupational therapy. The patient is seen by physical therapist. Their recommendation is home with services. The patient is yet to be seen by social media intern. The patient is yet to be evaluated for TCU. The patient has been updated about the diagnosis, treatment plan, management plan and continuation of the IV antibiotic as per infectious disease and further treatment by podiatry. The patient has been updated about all of the above in layman's language. All questions and concerns answered, which he acknowledged and understands. All questions and concerns answered to his satisfaction. Dictated and electronically signed, not read. Rashad Brown MD cc: [id number] TT: 01/02/2017 14:31:44 Confirmation # [id number] Dictation # [id number] jerome HERRERA
--- NOTE | 2017-01-02 21:57 | CP.PCM.PN ---
Subjective - Date & Time of Evaluation Date of Evaluation: 01/02/17 Time of Evaluation: 12:20 - Subjective Subjective: Comfortable, not in distress, less pain in the legs. Afebrile overnight. Objective - Vital Signs/Intake and Output Vital Signs (last 24 hours): Temp Pulse Resp BP Pulse Ox 98.5 F 73 20 161/94 H 99 01/02/17 16:00 01/02/17 17:54 01/02/17 16:00 01/02/17 17:54 01/02/17 16:00 Intake and Output: 01/02/17 01/03/17 18:59 06:59 Intake Total 860 Output Total 1500 Balance -640 - Medications Medications: Current Medications Carvedilol (Coreg) 6.25 mg PO BID [facility] Last Admin: 01/02/17 17:54 Dose: 6.25 mg Cholecalciferol (Vitamin D) 2,000 iu PO DAILY [facility] Last Admin: 01/02/17 11:23 Dose: 2,000 iu Diphenhydramine HCl (Benadryl) 25 mg IM HS [facility] Furosemide (Lasix) 40 mg IVP Q12 [facility] Last Admin: 01/02/17 21:33 Dose: Not Given Cefepime HCl (Maxipime 2gm) 100 mls @ 100 mls/hr IVPB Q8 [facility] PRN Reason: Protocol Stop: 01/05/17 22:46 Last Admin: 01/02/17 21:30 Dose: 100 mls/hr Linezolid (Zyvox 600mg/300ml D5w) 600 mg in 300 mls @ 200 mls/hr IVPB Q12 [facility] PRN Reason: Protocol Stop: 01/08/17 11:01 Last Admin: 01/02/17 11:18 Dose: 200 mls/hr Levothyroxine Sodium (Synthroid) 25 mcg PO DAILY [facility] Last Admin: 01/02/17 11:23 Dose: 25 mcg Lidocaine (Lidoderm) 1 ea TD DAILY [facility] Last Admin: 01/02/17 11:20 Dose: Not Given Losartan Potassium (Cozaar) 100 mg PO DAILY [facility] Last Admin: 01/02/17 11:21 Dose: 100 mg Polyethylene Glycol (Miralax) 17 gm PO BID [facility] Last Admin: 01/02/17 18:40 Dose: Not Given Potassium Chloride (K-Dur 20 Meq Er Tab) 20 meq PO BID [facility] Last Admin: 01/02/17 17:54 Dose: 20 meq Pregabalin (Lyrica) 50 mg PO BID [facility] Last Admin: 01/02/17 17:54 Dose: 50 mg Tamsulosin HCl (Flomax) 0.4 mg PO DAILY [facility] Last Admin: 01/02/17 11:37 Dose: 0.4 mg Tramadol HCl (Ultram) 50 mg PO TID PRN PRN Reason: Pain, moderate (4-7) Warfarin Sodium (Coumadin) 7.5 mg PO 1800 [facility] Last Admin: 01/02/17 17:54 Dose: 7.5 mg - Labs Labs: 01/02/17 05:00 01/02/17 05:00 PT 19.4 Seconds (9.9-11.8) H 01/02/17 05:00 INR 1.80 (0.93-1.08) H 01/02/17 05:00 APTT 33.1 Seconds (23.7-30.8) H 01/02/17 05:00 - Constitutional Appears: Non-toxic, No Acute Distress - Head Exam Head Exam: NORMAL INSPECTION - ENT Exam ENT Exam: Mucous Membranes Moist - Neck Exam Neck Exam: absent: Lymphadenopathy, Meningismus - Respiratory Exam Respiratory Exam: Decreased Breath Sounds - Cardiovascular Exam Cardiovascular Exam: +S1, +S2 - GI/Abdominal Exam GI & Abdominal Exam: Soft. absent: Tenderness Assessment and Plan - Assessment and Plan (Free Text) Plan: Assessment right leg infected venous stasis ulcers, with recent cultures on 12/24/2016 showing MRSA and Pseudomonas, slowly improving history of left lower extremity skin and skin structure infection with Klebsiella and MRSA in a patient with chronic venous stasis ulcers with no evidence of abscess or osteomyelitis on MRI, clinically improving Probable CHF exacerbation chronic systolic CHF with EF 25% chronic atrial fibrillation chronic lymphedema with chronic venous stasis COPD HTN history of gastric bypass surgery history of left knee surgery Plan continue zyvox and Cefepime day 2 Reviewed Podiatry evaluation Will continue to monitor clinically
[2017-01-02] MEDS ORDERED: DiphenhydrAMINE 50 mg/ml Inj IM SCH (22:00)
[2017-01-03] MEDS: Cefepime IV 2 gm in NS 100 ML IVPB SCH ×2 (05:30→13:03)
[2017-01-03 08:01] LABS: INR 1.56 (0.93-1.08); PARTIAL THROMBOPLASTIN TIME 32.1 Seconds (23.7-30.8)
[2017-01-03 08:04] LABS: ALB/GLOB RATIO 1.1 (1.1-1.8); ALKALINE PHOSPHATASE 84 U/L (38-133); ALT/SGPT 30 U/L (7-56); AST/SGOT 21 U/L (15-59); BILIRUBIN,DIRECT 0.8 mg/dL (0.0-0.4); BILIRUBIN,TOTAL 2.7 mg/dL (0.2-1.3); BLOOD UREA NITROGEN 22 mg/dL (7-21); CALCIUM 8.9 mg/dL (8.4-10.5); CARBON DIOXIDE 28 mmol/L (21-33); CHLORIDE 102 mmol/L (98-107); GFR AFRICAN-AMERICAN > 60; GLUCOSE,RANDOM 91 mg/dL (70-110); MAGNESIUM 1.8 mg/dL (1.7-2.2); POTASSIUM 4.2 mmol/L (3.6-5.0); SODIUM 140 mmol/L (132-148); TOTAL PROTEIN 7.9 g/dL (5.8-8.3)
--- NOTE | 2017-01-03 08:55 | PN ---
DATE: 01/03/2017 This is a 61-year-old morbidly obese male seen for chronic stasis ulcers to his left leg. The patien t is seen at chairside again, although we have told him multiple times that he should not have his le gs in dependency. His dressing is clean, dry and intact. There is a moderate amount of drainage on it. There is no pus or purulence. There is no abscess. The cellulitis is resolving. The leg now h as a dusky red area, which is the resolving cellulitis. He has a relatively superficial stage II ulc er on his lateral leg. There are actually 2 of those. They do have no sinus tract. There is no und ermining. The depth is 0.1 cm. All the tissue in the wounds is granular. VITAL SIGNS: Show a temperature of 97.7, his blood pressure is 146/83 and his respirations were 20, and oxygen saturation was 94%. LABORATORIES: Reviewed. His white blood cell count is 5.5. The H and H is 13.1 and 39.8. His chem istries show a BUN and creatinine of 22 and 1.4. His glucose was 91 and his BNP was 3040. The ronald nt's microbiology is from the outpatient center showing MRSA and pseudomonas. The problem with this patient with p.o. antibiotics was that in the past he had been given quinolones for his pseudomonas and it did interfere with the Coumadin causing multiple petechiae all over his t orso. The patient had been thus removed from that and we have been hesitant to give it to him again without strict monitoring of his INR. The patient at this time is on antibiotics as per maura d beto. His legs are stable. If a p.o. antibiotic is available as per the infectious disease, [facility], that decision will be left up to the ID customer service consultant. In the meantime, his dressings are changed a nd he is again urged to keep his legs elevated. We do have some compression with HECTOR and elastic sto ckings. The patient will be seen and followed. Anusha Sebastian DPM cc: [id number] TT: 01/03/2017 08:54:19 Confirmation # [id number] Dictation # [id number] en
[2017-01-03] MEDS: Potassium Chloride 20 mEq ER Tab PO SCH ×2 (09:50→17:00)
[2017-01-03] MEDS: Levothyroxine 25 MCG TAB PO SCH (09:51)
[2017-01-03] MEDS: POLYETHYLENE GLYCOL 3350 17 GM/Dose PACKET PO SCH ×2 (09:52→17:04)
[2017-01-03] MEDS: Linezolid 600 mg in D5W 300 ml 600 MG/300 ML BAG IVPB SCH (09:52)
[2017-01-03] MEDS: Lidocaine 5% Patch TD SCH (09:59)
[2017-01-03 16:39] VITALS: BP 94/74; PULSE 87; TEMP 98.8; O2SAT 98
--- NOTE | 2017-01-03 19:11 | DS ---
The patient, according to the neonatal social worker notes, patient is accepted to TCU. The patient was seen by the TCU evaluation. The patient is accepted for IV antibiotic and rehab skills. The patient was seen in room 565, bed 1. According to the patient's nurse, the patient has been refusing his Lidoderm patch. The patient was seen sitting up in the chair. The patient is alert, awake, responsive. Overnight nurse's notes were reviewed. PHYSICAL EXAMINATION: VITAL SIGNS: Heart rate 67, 73 88. Blood pressure over the last 24 hours 161/ 94, 146/83. Respirations 20, O2 sat 98%. INTAKE AND OUTPUT: From yesterday 540 and 1100. HEAD: Normocephalic, atraumatic. HEENT: Shows pink conjunctivae, anicteric sclerae. No oropharyngeal lesion. NECK: No neck rigidity. CHEST: Kyphosis. LUNGS: Shows no rales, crackles, or wheezing. Decreased breath sounds at the bases. CARDIOVASCULAR: Shows S1, S2, irregular rhythm, positive systolic murmur right second intercostal space, left sternal border. ABDOMEN: Soft, positive bowel sounds. Morbidly obese. GENITALIA: Male. RECTAL: Deferred. EXTREMITIES: Shows positive dressing. MUSCULOSKELETAL: Shows morbid obesity. NEUROLOGIC: The patient is alert, awake, oriented x 3. Cranial nerves II-XII intact. GAIT: Independent. PSYCHIATRIC: Negative for anxiety, negative for depression, negative for suicidal or homicidal ideation, negative for auditory or visual hallucination. DIAGNOSTICS: PT 16.8, INR 1.56, PTT 32. Sodium 140, potassium 4.2, chloride 102, CO2 28, anion gap 14, BUN 22, creatinine 1.4, GFR greater than 60, glucose 91, calcium 8.9, magnesium 1.8, total bili 2.7. BNP 3040. Blood cultures no growth. FINAL IMPRESSION, PLAN, AND DISCHARGE DIAGNOSES: 1. Pseudomonas aeruginosa and methicillin-resistant Staphylococcus aureus, bilateral infected venous stasis ulceration, right more than the left. 2. Super morbid obesity with elevated body mass index of greater than 55. 3. Hypertension. 4. Hypoxemia. 5. Acute recurrent systolic congestive heart failure with dilated cardiomyopathy. 6. Normocytic anemia. 7. Granulocytosis. 8. Coumadin dependent atrial fibrillation. 9. Hypokalemia. 10. Acute kidney injury. 11. Hyperbilirubinemia. 12. Acute recurrent systolic congestive heart failure with elevated BNP. 13. Poor compliance and noncompliance. 14. Normocytic anemia. 15. Hypokalemia. 16. Lumbar spine degenerative disk disease. 17. Chronic back pain. 18. Insomnia. 19. Chronic bilateral lower extremity lymphedema. 20. Insomnia. 21. Lumbar spine degenerative disk disease. 1. Bilateral lower extremity infected venous stasis ulceration secondary to methicillin-resistant Staphylococcus aureus and Pseudomonas aeruginosa. 2. Pseudomonas aeruginosa and Methicillin-resistant Staphylococcus aureus right leg chronic venous stasis ulceration. 3. Super morbid obesity with elevated body mass index of greater than 55. 4. Status post uncontrolled hypertension. 5. Coumadin dependent atrial fibrillation. 6. Normocytic anemia with granulocytosis. 7. Hypokalemia. 8. Acute kidney injury with underlying chronic kidney disease stage III. 9. Hyperbilirubinemia. 10. Acute recurrent systolic congestive heart failure with elevated BNP. 11. Bilateral lower extremity venous stasis ulceration with right lower extremity Pseudomonas aeruginosa and methicillin-resistant right lower extremity chronic venous stasis ulceration infection. 12. Insomnia. 13. Lumbar spine degenerative disk disease with low back pain syndrome. 1. Status post uncontrolled accelerated hypertension versus hypertensive urgency. 2. Bilateral lower extremity chronic venous stasis nonhealing and poorly healing ulceration. 3. Pseudomonas aeruginosa and methicillin-resistant Staphylococcus aureus lower extremity cellulitis and stasis ulceration. 4. Hypertension. 5. Super morbid obesity with elevated body mass index of 42. 6. Normocytic anemia. 7. Granulocytosis. 8. Coumadin dependent atrial fibrillation. 9. Hypokalemia. 10. Acute kidney injury with underlying chronic kidney disease. 11. Hyperbilirubinemia. 12. Acute recurrent systolic congestive heart failure with elevated BNP. 13. Cardiomegaly. 14. Atrial fibrillation with age indeterminate septal infarct, rate controlled. 15. History of hypothyroidism, history of prostate hypertrophy, history of neuropathy, history of constipation, history of hypovitaminosis D. 1. Uncontrolled accelerated hypertension versus hypertensive urgency. 2. Bilateral lower extremity chronic venous stasis nonhealing and poor healing ulceration. 3. Pseudomonas aeruginosa and methicillin-resistant Staphylococcus aureus lower extremity ulceration. 4. Super morbid obesity with elevated body mass index of greater than 41. 5. Uncontrolled hypertension. 6. Poor compliance. 7. Mild normocytic anemia. 8. Granulocytosis. 9. Coumadin-dependent atrial fibrillation. 10. Acute kidney injury. 11. Hyperbilirubinemia. 12. Atrial fibrillation with age indeterminate septal infarct. 13. Acute recurrent systolic congestive heart failure with cardiomegaly and vascular congestion. 14. History of constipation. 15. History of hypertension, history of congestive heart failure, history of neuropathy, history of hypothyroidism, history of prostatic hypertrophy, history of hypovitaminosis D. CURRENT DISCHARGE MEDICATIONS: 1. Benadryl 25 mg IM bedtime. 2. Coreg 6.25 mg twice a day. 3. Coumadin 7.5 mg daily. 4. Cozaar 100 mg daily. 5. Flomax 0.4 mg daily. 6. K-Dur 20 mEq twice a day. 7. Lasix 40 mg IV q. 12. 8. Lidoderm 5% patch to the lumbar spine area daily. 9. Lyrica 50 mg twice a day. 10. Maxipime 2 grams IV q. 8. 11. MiraLax 17 g twice a day. 12. Synthroid 25 mcg daily. 13. Ultram 50 mg t.i.d. p.r.n. 14. Vitamin D3 2000 units daily. 15. Zyvox 600 mg IV q. 12. Heart healthy diet, out of bed, occupational therapy, physical therapy. At this time, patient is transferred and discharged to transitional care unit under Dr. Brown's service. Time spent in entire discharge process, more than 45 minutes. Dictated and electronically signed, not read. Rashad Brown MD cc: [id number] TT: 01/03/2017 19:11:14 en MTDD
--- NOTE | 2017-01-03 22:22 | PN ---
DATE: 01/03/2017 The patient is in bed in no acute distress, nontoxic. PHYSICAL EXAMINATION: VITAL SIGNS: Temperature is 98, blood pressure is 120/70, respiratory rate of 16. HEENT: Unremarkable. NECK: Supple. LUNGS: Have decreased breath sounds. HEART: Normal S1, S2. ABDOMEN: Soft. LABORATORY DATA: Reveals the blood cultures are negative. ASSESSMENT AND PLAN: This is a 61-year-old male who was seen earlier this morning in room 565, bed 1 who was admitted with a right leg infected venous stasis and recent culture showing methicillin resi stant staphylococcus aureus, pseudomonas improving and patient is tolerating the antibiotics. Had an MRI with no evidence of osteomyelitis. Case discussed with PMD. Minh Padilla MD cc: [id number] TT: 01/03/2017 22:21:09 Confirmation # [id number] Dictation # [id number] margarette
== END 2017-01-03 17:35 | DRG 291 ==
LOC: ED 12:32 → ERH 15:13 → 5RNO 18:24
PROVIDERS: ADMIT Internal Medicine; ATTEND Internal Medicine
DX: I13.0 Hypertensive heart and chronic kidney disease with heart failure and stage 1 through stage 4 chronic kidney disease, or unspecified chronic kidney disease (principal); I50.23 Acute on chronic systolic (congestive) heart failure; I27.2 Other secondary pulmonary hypertension; N17.9 Acute kidney failure, unspecified; Z68.43 Body mass index [BMI] 50.0-59.9, adult; N18.3 Chronic kidney disease, stage 3 (moderate); I42.0 Dilated cardiomyopathy; L97.919 Non-pressure chronic ulcer of unspecified part of right lower leg with unspecified severity; L03.115 Cellulitis of right lower limb; L97.929 Non-pressure chronic ulcer of unspecified part of left lower leg with unspecified severity; E66.01 Morbid (severe) obesity due to excess calories; I48.2 Chronic atrial fibrillation; B95.62 Methicillin resistant Staphylococcus aureus infection as the cause of diseases classified elsewhere; B96.5 Pseudomonas (aeruginosa) (mallei) (pseudomallei) as the cause of diseases classified elsewhere; D64.9 Anemia, unspecified; E87.6 Hypokalemia; M51.36 Other intervertebral disc degeneration, lumbar region; G89.29 Other chronic pain; G47.00 Insomnia, unspecified; N40.0 Benign prostatic hyperplasia without lower urinary tract symptoms; E03.9 Hypothyroidism, unspecified; E55.9 Vitamin D deficiency, unspecified; J44.9 Chronic obstructive pulmonary disease, unspecified; Z91.19 Patient's noncompliance with other medical treatment and regimen; Z98.84 Bariatric surgery status; Z79.01 Long term (current) use of anticoagulants

== ENCOUNTER 2017-01-03 17:22 | Inpatient (IN) | payer MEDICARE, OTHER ==
[2017-01-03] MEDS: POLYETHYLENE GLYCOL 3350 17 GM/Dose PACKET PO SCH (19:34)
[2017-01-03] MEDS: Potassium Chloride 20 mEq ER Tab PO SCH (19:34)
[2017-01-03] MEDS ORDERED: Linezolid 600 mg in D5W 300 ml 600 MG/300 ML BAG IVPB SCH (22:00)
[2017-01-03] MEDS: Cefepime IV 2 gm in NS 2 GM/100 ML BAG IVPB SCH (22:40)
[2017-01-03] MEDS ORDERED: Pneumococcal 23-Valent Vaccine IM ONE (22:43)
[2017-01-03] MEDS: DiphenhydrAMINE 50 mg/ml Inj IM SCH (22:46)
[2017-01-03 22:56] VITALS: BMI 55.9
[2017-01-04] MEDS: Cefepime IV 2 gm in NS 2 GM/100 ML BAG IVPB SCH ×3 (05:25→22:22)
[2017-01-04] MEDS: Levothyroxine 25 MCG TAB PO SCH (05:26)
[2017-01-04 07:35] LABS: INR 1.68 (0.93-1.08)
[2017-01-04] MEDS: Potassium Chloride 20 mEq ER Tab PO SCH ×2 (10:07→18:58)
[2017-01-04] MEDS: POLYETHYLENE GLYCOL 3350 17 GM/Dose PACKET PO SCH ×2 (10:07→18:59)
--- NOTE | 2017-01-04 10:38 | HP ---
Date of admission to transitional care unit and history and physical examination 01/04/2017. The patient admitted to acute care floor from 12/31/2016 through 01/03/2017. The patient was accepted to transitional care unit last night and patient is now transferred to transitional care unit. The patient is now in 315, bed 1. [facility] [address] Information Management History and Physical Report : [id number] Draft Patient: SEE BELLA Unit: [id number] : 1955 Loc: 5NO Room/Bed: 56501 Age/Sex: 61 / M ADM Status: ADM IN ADM Date: Copied To: Attending MD: Rashad Brown MD HISTORY OF PRESENT ILLNESS: The patient was sent to the Emergency Room by Dr. Sebastian. The patient had routine visit to the wound care center for his leg ulceration and venous stasis ulceration where the patient was found to have elevated blood pressure greater than 180 and diastolic greater than 100 and 110. The patient was brought down from the wound care, sent to the Emergency Room. The patient's 13-system review was done. As per the podiatry, the patient has a nonhealing left leg ulcer despite oral antibiotic therapy and outpatient wound care. The patient was also found to have a significantly elevated blood pressure. Pertinent positive and negative dictated above. CODE STATUS: Full code. LIVING WILL AND ADVANCED DIRECTIVE: None. ALLERGIES: None. Height 5 feet 5 inches. Weight is 250. BMI is 42. SOCIAL HISTORY: The patient positive for substance abuse, alcohol use, denies smoking. OCCUPATIONAL HISTORY: Disabled PAST MEDICAL AND SURGICAL HISTORY: History of gastric bypass, history of morbid obesity, history of chronic venous stasis ulceration and cellulitis of the lower extremity, history of MRSA cellulitis of the lower extremity, history of systolic congestive heart failure, history of hypertension, history of bilateral lower extremity venous stasis nonhealing ulceration, history of cardiomyopathy, history of Coumadin dependent atrial fibrillation, history of lumbar spine degenerative disk disease, history of chronic back pain, history of prostatitic hypertrophy, history of hypertension, history of microscopic hematuria, history of bilateral lower extremity lymphedema and venous stasis ulceration of the lower extremity, history of poor compliance, history of prostate hypertrophy, history of neuropathy, history of constipation, history of hypertension, history of hypothyroidism, history of hypovitaminosis D. The patient's past medical history is also significant for morbid obesity, history of gastric bypass, history of Coumadin dependent atrial fibrillation with poor compliance, history of acute on chronic kidney disease, history of hypovitaminosis D, history of indeterminate troponin, history of proteinuria, microscopic hematuria, Past medical history significant for MRSA cellulitis of the lower extremity, past medical history is significant for history of cholelithiasis, history of hepatic steatosis with fatty liver, history of hepatosplenomegaly, history of renal cyst, history of bariatric surgery and weight loss surgery, history of cholelithiasis, history of super morbid obesity with body mass index ____, history of cholelithiasis, history of right renal cyst, history of lumbar spine disk herniation, history of nerve root compression , history of lumbar spine degenerative disk disease and history of lumbar spine disk bulge, foramen stenosis, arthropathy. The patient's past medical history is also significant for history of dilated cardiomyopathy, history of pulmonary arterial hypertension with elevated right ventricular systolic pressure, history of moderate mitral regurgitation, moderate tricuspid regurgitation, history of atrial fibrillation, history of recurrent multiple exacerbations of acute on chronic systolic decompensated IV milrinone treated congestive heart failure, history of MRSA and Klebsiella, bilateral lower extremity cellulitis, ulceration and chronic venous stasis ulceration, history of normocytic anemia, history of acute kidney injury, history of proteinuria, microscopic hematuria, bacteriuria, history of morbid obesity, history of hyperbilirubinemia. history of prediabetes, history of poor compliance, history of indeterminate troponin, history of pulmonary vascular congestion and congestive heart failure, bibasilar atelectasis. The patient's past medical history is also significant for MRSA cellulitis and venous stasis ulceration, history of hypothyroidism, history of acute on chronic systolic congestive heart failure, history of small vessel ischemic disease of the brain, history of questionable left bundle branch block versus intraventricular conduction delay, history of pulmonary arterial hypertension, history of moderate tricuspid and mitral regurgitation, history of gastric bypass and gastric banding. The patient was last seen about a week ago in the office. CURRENT MEDICATIONS: 1. Amitiza 24 mcg twice a day, 2. Coreg 6.25 mg twice a day, 3. Coumadin 7.5 mg daily. 4. Cozaar 100 mg daily. 5. Lasix 40 mg twice a day. 6. Lyrica 50 mg twice a day. 7. Synthroid 25 mcg daily. 8. Flomax 0.4 mg daily. 9. Ultram 50 mg 3 times a day p.r.n. 10. Vitamin D3 2000 units daily. The patient is seen in room 565, bed 1. The patient is lying in the bed. VITAL SIGNS: T-max 98.3, heart rate 74-78, blood pressure initially 186/116, 176/98, 201/131, ____ , 168/84 respiration 18, O2 sat 98%. DIAGNOSTICS: WBC 6.2, hemoglobin and hematocrit is 13.8 and 41.7, platelet 137 , granulocytes 79. PT 18.3, INR 1.7, lactic acid 0.8. Sodium 143, potassium 3.8, chloride 102, CO2 30, anion gap 15, BUN 24, creatinine 1.5, GFR 58, glucose 99, total bili 2.4. CPK 61, troponin 0.06. Chest x-ray shows cardiomegaly, vascular congestion. EKG shows atrial fibrillation with age- indeterminate septal infarct. The patient was seen in the Emergency Room by the ER physician. The patient was treated in the Emergency Room. The patient was seen by Dr. Tijerina. The patient was given clonidine for his blood pressure. The patient was admitted. IMPRESSION AND PLAN: 1. Uncontrolled accelerated hypertension versus hypertensive urgency. 2. Bilateral lower extremity chronic venous stasis nonhealing and poor healing ulceration. 3. Pseudomonas aeruginosa and methicillin-resistant Staphylococcus aureus lower extremity ulceration. 4. Super morbid obesity with elevated body mass index of greater than 41. 5. Uncontrolled hypertension. 6. Poor compliance. 7. Mild normocytic anemia. 8. Granulocytosis. 9. Coumadin-dependent atrial fibrillation. 10. Acute kidney injury. 11. Hyperbilirubinemia. 12. Atrial fibrillation with age indeterminate septal infarct. 13. Acute recurrent systolic congestive heart failure with cardiomegaly and vascular congestion. 14. History of constipation. 15. History of hypertension, history of congestive heart failure, history of neuropathy, history of hypothyroidism, history of prostatic hypertrophy, history of hypovitaminosis D. PLAN: At this time, patient received clonidine 0.2 mg in the Emergency Room. The patient was admitted to the hospital. Infectious disease, podiatry consultation ordered. The patient will be resumed on Coreg 6.25 twice a day. The patient will be resumed on Coumadin daily, Cozaar 100 mg daily, Flomax 0.4 mg daily, Lasix will be resumed at 40 mg IV q. 12, Lyrica 50 mg twice a day, Synthroid 25 mcg daily, Teflaro will be ordered 600 mg IV q. 12, vitamin D3 2000 units daily. The patient will be resumed on Ultram. The patient will be ordered Amitiza if it is formulary. The patient will be resumed on Coumadin. The patient will be ordered some repeat labs. The patient at this time was seen. The patient has been ordered serial labs. Daily PT/INR has been ordered. The patient is seen in Room 565. The patient will be placed on MRSA isolation. The patient has been ordered serial labs. The patient's further management will be dependent upon the patient's clinical condition, hemodynamic status, and as per patient's response to therapeutic intervention, as per recommendation by infectious disease and podiatry. The patient has been updated about his condition, diagnosis, treatment plan, need for further diagnostic and therapeutic intervention was explained to the patient at length. All questions and concerns answered to the patient's satisfaction, which he acknowledged and understands. At this time, the patient is awaiting further recommendation from podiatry and infectious disease, which will determine the patient's course of management during this hospitalization, which has been explained to the patient in layman's language. All questions and concerns answered. Dictated and electronically signed, not read. Rashad Brown MD VITAL SIGNS: T-max 97.8, pulse 71-84, blood pressure 163/95, 174/101, 178/104, respirations 18, O2 sat 96%. The patient's labs are not available. PT 18.1, INR 1.68. IMPRESSION: 1. Deconditioning. 2. Super morbid obesity. 3. Deconditioning. 4. Gait dysfunction. 5. Deconditioning. 6. Coumadin dependent atrial fibrillation. 7. Insomnia. 8. Uncontrolled hypertension. 9. Prostate hypertrophy. 10. Hypokalemia. 11. Systolic congestive heart failure with underlying cardiomyopathy. 12. Lumbar spine degenerative disk disease. 13. Neuropathy. 14. Constipation. 15. Hypothyroidism. 16. Hypovitaminosis D. 1. Pseudomonas aeruginosa and methicillin-resistant Staphylococcus aureus, bilateral infected venous stasis ulceration, right more than the left. 2. Super morbid obesity with elevated body mass index of greater than 55. 3. Hypertension. 4. Hypoxemia. 5. Acute recurrent systolic congestive heart failure with dilated cardiomyopathy. 6. Normocytic anemia. 7. Granulocytosis. 8. Coumadin dependent atrial fibrillation. 9. Hypokalemia. 10. Acute kidney injury. 11. Hyperbilirubinemia. 12. Acute recurrent systolic congestive heart failure with elevated BNP. 13. Poor compliance and noncompliance. 14. Normocytic anemia. 15. Hypokalemia. 16. Lumbar spine degenerative disk disease. 17. Chronic back pain. 18. Insomnia. 19. Chronic bilateral lower extremity lymphedema. 20. Insomnia. 21. Lumbar spine degenerative disk disease. 1. Bilateral lower extremity infected venous stasis ulceration secondary to methicillin-resistant Staphylococcus aureus and Pseudomonas aeruginosa. 2. Pseudomonas aeruginosa and Methicillin-resistant Staphylococcus aureus right leg chronic venous stasis ulceration. 3. Super morbid obesity with elevated body mass index of greater than 55. 4. Status post uncontrolled hypertension. 5. Coumadin dependent atrial fibrillation. 6. Normocytic anemia with granulocytosis. 7. Hypokalemia. 8. Acute kidney injury with underlying chronic kidney disease stage III. 9. Hyperbilirubinemia. 10. Acute recurrent systolic congestive heart failure with elevated BNP. 11. Bilateral lower extremity venous stasis ulceration with right lower extremity Pseudomonas aeruginosa and methicillin-resistant right lower extremity chronic venous stasis ulceration infection. 12. Insomnia. 13. Lumbar spine degenerative disk disease with low back pain syndrome. 1. Status post uncontrolled accelerated hypertension versus hypertensive urgency. 2. Bilateral lower extremity chronic venous stasis nonhealing and poorly healing ulceration. 3. Pseudomonas aeruginosa and methicillin-resistant Staphylococcus aureus lower extremity cellulitis and stasis ulceration. 4. Hypertension. 5. Super morbid obesity with elevated body mass index of 42. 6. Normocytic anemia. 7. Granulocytosis. 8. Coumadin dependent atrial fibrillation. 9. Hypokalemia. 10. Acute kidney injury with underlying chronic kidney disease. 11. Hyperbilirubinemia. 12. Acute recurrent systolic congestive heart failure with elevated BNP. 13. Cardiomegaly. 14. Atrial fibrillation with age indeterminate septal infarct, rate controlled. 15. History of hypothyroidism, history of prostate hypertrophy, history of neuropathy, history of constipation, history of hypovitaminosis D. 1. Uncontrolled accelerated hypertension versus hypertensive urgency. 2. Bilateral lower extremity chronic venous stasis nonhealing and poor healing ulceration. 3. Pseudomonas aeruginosa and methicillin-resistant Staphylococcus aureus lower extremity ulceration. 4. Super morbid obesity with elevated body mass index of greater than 41. 5. Uncontrolled hypertension. 6. Poor compliance. 7. Mild normocytic anemia. 8. Granulocytosis. 9. Coumadin-dependent atrial fibrillation. 10. Acute kidney injury. 11. Hyperbilirubinemia. 12. Atrial fibrillation with age indeterminate septal infarct. 13. Acute recurrent systolic congestive heart failure with cardiomegaly and vascular congestion. 14. History of constipation. 15. History of hypertension, history of congestive heart failure, history of neuropathy, history of hypothyroidism, history of prostatic hypertrophy, history of hypovitaminosis D. PLAN: At this time, patient is to be admitted to transitional care unit with serial labs. Consultation with infectious disease, consultation with podiatry. CURRENT MEDICATIONS: 1. Benadryl 25 mg IM bedtime. 2. Coreg 6.25 twice a day. 3. Coumadin 7.5 mg daily. 4. Cozaar 100 mg daily. 5. Flomax 0.4 mg daily. 6. K-Dur 20 mEq twice a day. 7. Lasix 40 mg IV q. 12. 8. Lidoderm 5% patch to the lumbar area. 9. Lyrica 50 mg twice a day. 10. Cefepime 2 grams IV q. 8. 11. MiraLax 17 g twice a day. 12. Synthroid 25 mcg daily. 13. Ultram 50 mg t.i.d. p.r.n. 14. Vitamin D3 2000 units daily. 15. Zyvox 600 mg IV q. 12 hours. The patient is on MRSA isolation. Physical therapy, occupational therapy ordered. At this time, the patient is admitted to TCU. The patient's further management will be dependent upon the patient's clinical condition, hemodynamic status, and as per patient's recommendation by physical therapy, occupational therapy, infectious disease and podiatry. Dictated and electronically signed, not read. Rashad Brown MD cc: [id number] TT: 01/04/2017 10:37:57 jerome HERRERA
--- NOTE | 2017-01-04 10:56 | CP.PCM.PN ---
<Caroline Schwab - Last Filed: 01/04/17 10:53> Subjective - Date & Time of Evaluation Date of Evaluation: 01/04/17 Time of Evaluation: 10:53 - Subjective Subjective: 61 year old male seen at bedside in TCU for right leg ulceration. Patient states that his bloodpressure is still high because he didnt want to take any medication that made him pee all night. Patient denies any other pedal complaints. He denies any acute events overnight. Patient is feeling better now that he is taking medication. Patient denies any n/f/v/c/d/sob. Objective - Vital Signs/Intake and Output Vital Signs (last 24 hours): Temp Pulse Resp BP Pulse Ox 98.1 F 72 20 164/103 H 98 01/04/17 10:00 01/04/17 10:00 01/04/17 10:00 01/04/17 10:00 01/04/17 10:00 - Medications Medications: Current Medications Carvedilol (Coreg) 6.25 mg PO BID SACHIN PRN Reason: Protocol Last Admin: 01/04/17 10:04 Dose: 6.25 mg Cholecalciferol (Vitamin D) 2,000 iu PO DAILY SACHIN PRN Reason: Protocol Last Admin: 01/04/17 10:07 Dose: 2,000 iu Diphenhydramine HCl (Benadryl) 25 mg IM HS SACHIN PRN Reason: Protocol Last Admin: 01/03/17 22:46 Dose: 25 mg Furosemide (Lasix) 40 mg IVP Q12 SACHIN PRN Reason: Protocol Last Admin: 01/04/17 10:06 Dose: Not Given Cefepime HCl (Maxipime 2gm) 2 gm in 100 mls @ 100 mls/hr IVPB Q8 SACHIN PRN Reason: Protocol Stop: 01/08/17 22:01 Last Admin: 01/04/17 05:25 Dose: 100 mls/hr Linezolid (Zyvox 600mg/300ml D5w) 600 mg in 300 mls @ 200 mls/hr IVPB Q12 SACHIN PRN Reason: Protocol Stop: 01/08/17 23:29 Levothyroxine Sodium (Synthroid) 25 mcg PO 0600 SACHIN PRN Reason: Protocol Last Admin: 01/04/17 05:26 Dose: 25 mcg Lidocaine (Lidoderm) 1 ea TD DAILY SACHIN PRN Reason: Protocol Losartan Potassium (Cozaar) 100 mg PO DAILY SACHIN PRN Reason: Protocol Last Admin: 01/04/17 10:06 Dose: Not Given Polyethylene Glycol (Miralax) 17 gm PO BID SACHIN PRN Reason: Protocol Last Admin: 01/04/17 10:07 Dose: 17 gm Potassium Chloride (K-Dur 20 Meq Er Tab) 20 meq PO BID SACHIN PRN Reason: Protocol Last Admin: 01/04/17 10:07 Dose: 20 meq Pregabalin (Lyrica) 50 mg PO BID SACHIN PRN Reason: Protocol Last Admin: 01/04/17 10:11 Dose: 50 mg Tamsulosin HCl (Flomax) 0.4 mg PO DAILY SACHIN PRN Reason: Protocol Last Admin: 01/04/17 10:07 Dose: 0.4 mg Tramadol HCl (Ultram) 50 mg PO TID PRN; Protocol PRN Reason: Pain, moderate (4-7) Warfarin Sodium (Coumadin) 7.5 mg PO 1800 SACHIN PRN Reason: Protocol Last Admin: 01/03/17 19:34 Dose: 7.5 mg - Labs Labs: PT 18.1 Seconds (9.9-11.8) H 01/04/17 07:00 INR 1.68 (0.93-1.08) H 01/04/17 07:00 - Constitutional Appears: Well, Non-toxic, No Acute Distress - Extremities Exam Additional comments: Vasc: nonpalpable pedal pulses b/l, TG wnl, CFT < 3 sec to all digits, +2 pitting edema neuro: grossly diminished derm: +2 pitting edema, mild localized erythema, superficial ulcerations ranging from 2.5cm x 3 cm x 0.2 to smaller like 0.5cm x 0.5cm x 0.2 cm on the right lateral leg, granular base, fibrotic border, mild serous drainage, no purulence, no probe to bone, no tunneling, no ascending cellulitis ortho: mild pain to palpation of right lateral leg - Neurological Exam Neurological Exam: Alert, Awake, Oriented x3 - Psychiatric Exam Psychiatric exam: Normal Affect, Normal Mood Assessment and Plan - Assessment and Plan (Free Text) Assessment: 61 y/o male seen at bedside in TCU for right leg venous stasis ulceration Plan: patient evaluated and chart reviewed discussed in detail with attending Dr. Byers labs and vitals reviewed continue IV abx as per ID applied xeroform, DSD, ABD, kerlix, HECTOR to RLE patient to continue compression dressings to extremities patient stable from podiatry standpoint and instructed to follow up at wound care center upon discharge podiatry will continue to monitor while patient remains in house <Mynor Byers - Last Filed: 01/04/17 15:22> Objective - Vital Signs/Intake and Output Vital Signs (last 24 hours): Temp Pulse Resp BP Pulse Ox 98.1 F 72 20 164/103 H 98 01/04/17 10:00 01/04/17 10:00 01/04/17 10:00 01/04/17 10:00 01/04/17 10:00 - Medications Medications: Current Medications Carvedilol (Coreg) 6.25 mg PO BID SACHIN PRN Reason: Protocol Last Admin: 01/04/17 10:04 Dose: 6.25 mg Cholecalciferol (Vitamin D) 2,000 iu PO DAILY SACHIN PRN Reason: Protocol Last Admin: 01/04/17 10:07 Dose: 2,000 iu Diphenhydramine HCl (Benadryl) 25 mg IM HS SACHIN PRN Reason: Protocol Last Admin: 01/03/17 22:46 Dose: 25 mg Furosemide (Lasix) 40 mg IVP 0600,1800 SACHIN PRN Reason: Protocol Cefepime HCl (Maxipime 2gm) 2 gm in 100 mls @ 100 mls/hr IVPB Q8 SACHIN PRN Reason: Protocol Stop: 01/08/17 22:01 Last Admin: 01/04/17 13:51 Dose: 100 mls/hr Linezolid (Zyvox 600mg/300ml D5w) 600 mg in 300 mls @ 200 mls/hr IVPB Q12 SACHIN PRN Reason: Protocol Stop: 01/08/17 23:29 Last Admin: 01/04/17 11:06 Dose: 200 mls/hr Levothyroxine Sodium (Synthroid) 25 mcg PO 0600 SACHIN PRN Reason: Protocol Last Admin: 01/04/17 05:26 Dose: 25 mcg Lidocaine (Lidoderm) 1 ea TD DAILY SACHIN PRN Reason: Protocol Last Admin: 01/04/17 11:08 Dose: 1 ea Losartan Potassium (Cozaar) 100 mg PO DAILY SACHIN PRN Reason: Protocol Last Admin: 01/04/17 10:06 Dose: Not Given Polyethylene Glycol (Miralax) 17 gm PO BID SACHIN PRN Reason: Protocol Last Admin: 01/04/17 10:07 Dose: 17 gm Potassium Chloride (K-Dur 20 Meq Er Tab) 20 meq PO BID SACHIN PRN Reason: Protocol Last Admin: 01/04/17 10:07 Dose: 20 meq Pregabalin (Lyrica) 50 mg PO BID SACHIN PRN Reason: Protocol Last Admin: 01/04/17 10:11 Dose: 50 mg Tamsulosin HCl (Flomax) 0.4 mg PO DAILY SACHIN PRN Reason: Protocol Last Admin: 01/04/17 10:07 Dose: 0.4 mg Tramadol HCl (Ultram) 50 mg PO TID PRN; Protocol PRN Reason: Pain, moderate (4-7) Warfarin Sodium (Coumadin) 7.5 mg PO 1800 SACHIN PRN Reason: Protocol Last Admin: 01/03/17 19:34 Dose: 7.5 mg - Labs Labs: PT 18.1 Seconds (9.9-11.8) H 01/04/17 07:00 INR 1.68 (0.93-1.08) H 01/04/17 07:00 Attending/Attestation - Attestation I have personally seen and examined this patient.: Yes I have fully participated in the care of the patient.: Yes I have reviewed all pertinent clinical information, including history, physical exam and plan: Yes
[2017-01-04] MEDS: Linezolid 600 mg in D5W 300 ml 600 MG/300 ML BAG IVPB SCH ×2 (11:06→22:23)
[2017-01-04] MEDS: Lidocaine 5% Patch TD SCH (11:08)
--- NOTE | 2017-01-04 20:52 | CON ---
DATE: 01/04/2017 The patient is in bed and was seen earlier this morning in room 315. CHIEF COMPLAINT: Weakness times several days. HISTORY OF PRESENT ILLNESS: This is a 61-year-old male with morbid obesity with a BMI of 55.9, known to me from previous admission, with the last one last year, who was recently in the hospital and has a history of left leg cellulitis, asthma, hypertension, arthritis and had a history of sensitive Sta phylococcus aureus cellulitis, atrial fibrillation, lymphedema, renal insufficiency and had lap band surgery and left shoulder surgery, who was admitted to the transitional care for further antibiotic t herapy and physical therapy and antibiotic treatment. The patient has had a right leg infected venou s stasis that had showed MRSA and pseudomonas and had an MRI, which was negative for osteo. REVIEW OF SYSTEMS: Reveals no fevers, no chills, no nausea, no vomiting, no chest pain and no diarrh ea or constipation. PAST MEDICAL HISTORY: Is significant for morbid obesity, BMI of 55.9; asthma, hypertension, renal in sufficiency, arthritis, sensitive Staphylococcus aureus cellulitis, atrial fibrillation, chronic lymp hedema, morbid obesity, left leg cellulitis and congestive heart failure. PAST SURGICAL HISTORY: Is significant for a lap band and left shoulder surgery. ALLERGIES: He has no known allergies. PHYSICAL EXAMINATION: GENERAL: The patient is in bed with a temperature of 98, blood pressure is 160/70, respiratory rate of 18, heart rate of 72. HEENT: Unremarkable. NECK: Supple. LUNGS: Have decreased breath sounds. HEART: Normal S1, S2. ABDOMEN: Soft, nontender. EXTREMITIES: Examination of the leg shows it has a dressing. LABORATORY EXAMINATION: Reveals a white count of 5.5, hemoglobin of 13, BUN of 22, creatinine of 1.4 . Microbiology reveals the blood cultures are reported to be negative. The leg culture has MRSA and pseudomonas. ASSESSMENT AND PLAN: This is a 61-year-old male with morbid obesity, asthma, hypertension, arthritis , congestive heart failure, sensitive Staphylococcus aureus cellulitis, atrial fibrillation, chronic lymphedema in acute care with right leg infected with methicillin-resistant Staphylococcus aureus and pseudomonas, stasis and cellulitis with a negative MRI. Will treat the patient with Zyvox and cefepime. Review of the microbiology for the pseudomonas reveals the patient to have the pseudomona s to be sensitive to cefepime. Review of the platelets also reveals the patient's platelet to be 141 . Will treat the patient with cefepime and Zyvox. Will follow closely with you. Minh Padilla MD cc: [id number] TT: 01/04/2017 20:51:45 Confirmation # [id number] Dictation # [id number] dn
[2017-01-04] MEDS: DiphenhydrAMINE 50 mg/ml Inj IM SCH (23:11)
[2017-01-05] MEDS: Cefepime IV 2 gm in NS 2 GM/100 ML BAG IVPB SCH ×3 (05:35→21:53)
[2017-01-05] MEDS: Levothyroxine 25 MCG TAB PO SCH (05:36)
[2017-01-05 07:58] LABS: ADD MANUAL DIFF? NO
[2017-01-05 08:02] LABS: BASO # 0.01 K/mm3 (0.0-2.0); BASO % 0.2 % (0.0-3.0); EOS # 0.1 (0.0-0.7); EOS % 2.1 % (1.5-5.0); GRAN # 3.27 (1.4-6.5); GRAN % 68.1 % (50.0-68.0); HEMATOCRIT 39.7 % (42.0-52.0); LYMPH % 20.4 % (22.0-35.0); MEAN CELL VOLUME 92.8 fL (80.0-105.0); MEAN CORPUSCULAR HEMOGLOBIN 30.1 pg (25.0-35.0); MEAN CORPUSCULAR HGB CONC 32.5 g/dl (31.0-37.0); MEAN PLATELET VOLUME 9.7 fl (7.0-11.0); MONO # 0.4 (0.1-0.6); MONO % 9.2 % (1.0-6.0); PLATELET COUNT 111 10^3/uL (120.0-450.0); RED CELL DISTRIBUTION WIDTH 15.2 % (11.5-14.5); WHITE BLOOD COUNT 4.8 10^3/ul (4.5-11.0)
[2017-01-05 08:15] LABS: INR 1.72 (0.93-1.08); PARTIAL THROMBOPLASTIN TIME 32.3 Seconds (23.7-30.8)
[2017-01-05 08:18] LABS: BILIRUBIN,DIRECT 0.7 mg/dL (0.0-0.4); BILIRUBIN,TOTAL 2.4 mg/dL (0.2-1.3); CALCIUM 8.7 mg/dL (8.4-10.5); MAGNESIUM 1.9 mg/dL (1.7-2.2); POTASSIUM 4.3 mmol/L (3.6-5.0); TOTAL PROTEIN 7.5 g/dL (5.8-8.3); URIC ACID 5.6 mg/dL (3.5-8.5)
--- NOTE | 2017-01-05 09:41 | PN ---
DATE: 01/05/2017 SUBJECTIVE: This is a 61-year-old male seen at bedside for continued evaluation and management of ch ronic venous stasis ulceration to the right lower leg. The patient is reporting much less pain in hi s right lower leg; however, when the area is touched he is still experiencing pain. VITAL SIGNS: Reveal a temperature of 98.6, pulse rate of 86, blood pressure 146/95 and respiratory r ate of 18. LABORATORY DATA: Reveal a white count of 4.8, hemoglobin of 12.9, hematocrit of 39.7, platelet count of 111. Most recent blood culture reveals Pseudomonas and MRSA growth in his right lower leg. OBJECTIVE: +2 pitting lower extremity edema with chronic venous stasis dermatitis and discoloration on both lower legs. There are nonpalpable pedal pulses noted bilaterally and capillary filling time is delayed. Patient does not detect 5.07 gram monofilament wire testing bilaterally. There is a ful l thickness ulceration on the lateral aspect of the right lower leg that measures approximately 0.5 x 0.5 x 0.2 cm and there is a larger ulceration adjacent to it that measures approximately 3.1 x 2.6 x 0.2 cm. Base of the ulcerations are primarily granular. There is a fibrotic border. There is note d to be serous drainage. There is no purulence. The wound does not probe to tendon or bone. There is no malodor. There are no signs of abscess formation and no signs of ascending cellulitis. ASSESSMENT: Slowly resolving venous stasis ulcerations to the right lower leg. PLAN: The patient's wound was cleansed with normal sterile saline and an application of Xeroform, Ma xorb, dry sterile dressing, and compression was applied to the right lower leg. The patient was told to elevate both legs at all times when resting and to remove the compression dressings prior to flor g to sleep at night. The patient will be seen and followed daily. Mynor Byers DPM cc: [id number] TT: 01/05/2017 09:41:16 Confirmation # [id number] Dictation # [id number] margarette
[2017-01-05] MEDS: POLYETHYLENE GLYCOL 3350 17 GM/Dose PACKET PO SCH ×2 (09:42→17:56)
[2017-01-05] MEDS: Lidocaine 5% Patch TD SCH (09:43)
[2017-01-05] MEDS: Potassium Chloride 20 mEq ER Tab PO SCH ×2 (09:43→17:57)
[2017-01-05] MEDS: Linezolid 600 mg in D5W 300 ml 600 MG/300 ML BAG IVPB SCH ×2 (09:48→21:58)
--- NOTE | 2017-01-05 10:21 | PN ---
DATE: 01/05/2017 The patient is seen in room 315, bed 1. The patient is out of bed to chair. The patient appears to be very comfortable. Overnight nurse's notes were reviewed. The patient has refused IV Lasix. The patient has also been refusing certain medicines which were reported to me by the nurses. PHYSICAL EXAMINATION: VITAL SIGNS: T-max 98.5, heart rate 86, blood pressure is 146/95. Overnight blood pressure in the last 24 hours 176/102, 172/111, 164/103, 178/104, respirations 14-18-20, O2 sat is 98%. HEAD: Normocephalic, atraumatic. HEENT: Shows pink conjunctivae, anicteric sclerae. No oropharyngeal lesion. NECK: No neck rigidity. CHEST: Kyphosis. LUNGS: Shows decreased breath sounds at the bases. CARDIOVASCULAR: S1, S2. Irregular rhythm. Positive systolic murmur right second intercostal space, left sternal border, left second intercostal space. ABDOMEN: Morbidly obese. GENITALIA: Male. RECTAL: Deferred. EXTREMITIES: Shows positive lymphedema positive dressing of the lower extremity. MUSCULOSKELETAL: Shows a body mass index of almost 56. NEUROLOGIC: Without any gross deficit. PSYCHIATRIC: Negative for anxiety, depression. Negative for auditory or visual hallucinations. Negative for suicidal or homicidal ideation. GAIT: Independent with a walker. DIAGNOSTICS: Sodium 138, potassium 4.3, chloride 99, CO2 28, anion gap 15, BUN 23, creatinine 1.5, GFR 58, glucose 78, uric acid 5.6, calcium 8.7, magnesium 1.9, total bili 2.4. PT 18.6, INR 1.72, WBC 4.8, hemoglobin 12.9, hematocrit 39.7, platelets 111. IMPRESSION AND PLAN: 1. Deconditioning. 2. Gait dysfunction. 3. Super morbid obesity with elevated body mass index of greater than 56. 4. Acute recurrent systolic congestive heart failure with dilated cardiomyopathy. 5. Pseudomonal aeruginosa and methicillin-resistant Staphylococcus aureus right leg chronic venous stasis ulcer infection. 6. Bilateral lower extremity chronic venous stasis ulceration. 7. Normocytic anemia. 8. Thrombocytopenia. 9. Granulocytosis. 10. Coumadin dependent atrial fibrillation. 11. Acute kidney injury. 12. Hyperbilirubinemia. 13. Poor compliance and noncompliance. 14. Insomnia. 15. Uncontrolled hypertension. 16. Prostatitic hypertrophy. 17. Hypokalemia. 18. Lumbar degenerative disk disease with radiculopathy and neuropathy. 19. Constipation. 20. Hypothyroidism. 21. Hypovitaminosis D. 22. Lymphedema of the lower extremity. 1. Deconditioning. 2. Super morbid obesity. 3. Deconditioning. 4. Gait dysfunction. 5. Deconditioning. 6. Coumadin dependent atrial fibrillation. 7. Insomnia. 8. Uncontrolled hypertension. 9. Prostate hypertrophy. 10. Hypokalemia. 11. Systolic congestive heart failure with underlying cardiomyopathy. 12. Lumbar spine degenerative disk disease. 13. Neuropathy. 14. Constipation. 15. Hypothyroidism. 16. Hypovitaminosis D. 1. Pseudomonas aeruginosa and methicillin-resistant Staphylococcus aureus, bilateral infected venous stasis ulceration, right more than the left. 2. Super morbid obesity with elevated body mass index of greater than 55. 3. Hypertension. 4. Hypoxemia. 5. Acute recurrent systolic congestive heart failure with dilated cardiomyopathy. 6. Normocytic anemia. 7. Granulocytosis. 8. Coumadin dependent atrial fibrillation. 9. Hypokalemia. 10. Acute kidney injury. 11. Hyperbilirubinemia. 12. Acute recurrent systolic congestive heart failure with elevated BNP. 13. Poor compliance and noncompliance. 14. Normocytic anemia. 15. Hypokalemia. 16. Lumbar spine degenerative disk disease. 17. Chronic back pain. 18. Insomnia. 19. Chronic bilateral lower extremity lymphedema. 20. Insomnia. 21. Lumbar spine degenerative disk disease. 1. Bilateral lower extremity infected venous stasis ulceration secondary to methicillin-resistant Staphylococcus aureus and Pseudomonas aeruginosa. 2. Pseudomonas aeruginosa and Methicillin-resistant Staphylococcus aureus right leg chronic venous stasis ulceration. 3. Super morbid obesity with elevated body mass index of greater than 55. 4. Status post uncontrolled hypertension. 5. Coumadin dependent atrial fibrillation. 6. Normocytic anemia with granulocytosis. 7. Hypokalemia. 8. Acute kidney injury with underlying chronic kidney disease stage III. 9. Hyperbilirubinemia. 10. Acute recurrent systolic congestive heart failure with elevated BNP. 11. Bilateral lower extremity venous stasis ulceration with right lower extremity Pseudomonas aeruginosa and methicillin-resistant right lower extremity chronic venous stasis ulceration infection. 12. Insomnia. 13. Lumbar spine degenerative disk disease with low back pain syndrome. 1. Status post uncontrolled accelerated hypertension versus hypertensive urgency. 2. Bilateral lower extremity chronic venous stasis nonhealing and poorly healing ulceration. 3. Pseudomonas aeruginosa and methicillin-resistant Staphylococcus aureus lower extremity cellulitis and stasis ulceration. 4. Hypertension. 5. Super morbid obesity with elevated body mass index of 42. 6. Normocytic anemia. 7. Granulocytosis. 8. Coumadin dependent atrial fibrillation. 9. Hypokalemia. 10. Acute kidney injury with underlying chronic kidney disease. 11. Hyperbilirubinemia. 12. Acute recurrent systolic congestive heart failure with elevated BNP. 13. Cardiomegaly. 14. Atrial fibrillation with age indeterminate septal infarct, rate controlled. 15. History of hypothyroidism, history of prostate hypertrophy, history of neuropathy, history of constipation, history of hypovitaminosis D. 1. Uncontrolled accelerated hypertension versus hypertensive urgency. 2. Bilateral lower extremity chronic venous stasis nonhealing and poor healing ulceration. 3. Pseudomonas aeruginosa and methicillin-resistant Staphylococcus aureus lower extremity ulceration. 4. Super morbid obesity with elevated body mass index of greater than 41. 5. Uncontrolled hypertension. 6. Poor compliance. 7. Mild normocytic anemia. 8. Granulocytosis. 9. Coumadin-dependent atrial fibrillation. 10. Acute kidney injury. 11. Hyperbilirubinemia. 12. Atrial fibrillation with age indeterminate septal infarct. 13. Acute recurrent systolic congestive heart failure with cardiomegaly and vascular congestion. 14. History of constipation. 15. History of hypertension, history of congestive heart failure, history of neuropathy, history of hypothyroidism, history of prostatic hypertrophy, history of hypovitaminosis D. PLAN: At this time, the patient is to be continued on above therapeutic intervention. The patient's case management and treatment plan discussed with infectious disease, Dr. Padilla. The patient will have physical therapy, occupational therapy. The patient has been ordered serial labs. The patient is seen by podiatry and infectious disease. CURRENT MEDICATIONS: Benadryl 25 mg IM bedtime, clonidine 0.1 mg p.o. q. 4 p.r.n., Coreg 6.25 mg twice a day, Coumadin 7.5 mg daily, Cozaar 100 mg daily, Flomax 0.4 mg daily, K-Dur 20 mEq twice a day, Lasix 40 mg IV q. 12, Lidoderm 5 % patch to the lumbar spine, Lyrica 50 mg twice a day, Cefepime 2 grams IV q. 8 hours, MiraLax 17 g twice a day, Synthroid 25 mcg daily, tramadol 50 mg t.i.d. p.r.n., vitamin D3 2000 units daily, Zyvox 600 mg q. 12 hours. The patient is on MRSA isolation. The patient updated about his condition, diagnosis, treatment plan, management plan, continuation of the IV antibiotic discussed and explained to the patient in layman's language. All questions and concerns answered. Dictated and electronically signed, not read. Rashad Brown MD cc: [id number] TT: 01/05/2017 10:20:14 Confirmation # [id number] Dictation # [id number] jn MTDD
--- NOTE | 2017-01-05 19:01 | PN ---
DATE: 01/05/2017 The patient is in bed, was seen earlier today. He is doing much better. PHYSICAL EXAMINATION: VITAL SIGNS: Temperature is 98, blood pressure is 160/70, respiratory rate 20, heart rate of 82. HEENT: Unremarkable. NECK: Supple. LUNGS: Have decreased breath sounds. HEART: Normal S1, S2. ABDOMEN: Soft, nontender. LABORATORY DATA: Reveals a white count of 4.8, hemoglobin of 12.9. Coagulation is noted. Chemistri es reveal the BUN of 23, creatinine of 1.5. ASSESSMENT AND PLAN: This is a 61-year-old male with morbid obesity, asthma, hypertension, arthritis , congestive heart failure, history of sensitive Staphylococcus aureus cellulitis, atrial fibrillatio n, chronic lymphedema, this admission with a right leg methicillin-resistant Staphylococcus aureus an d pseudomonas cellulitis, negative MRI, on Zyvox and cefepime. Case discussed with Dr. Brown earlier today. Review of the orders reveals the patient's cefepime to be active and Zyvox to be active. We will follow closely with you. Minh Padilla MD cc: 350 TT: 01/05/2017 19:01:27 Confirmation # [id number] Dictation # [id number] jerome
[2017-01-05] MEDS: DiphenhydrAMINE 50 mg/ml Inj IM SCH (21:55)
[2017-01-06] MEDS: Cefepime IV 2 gm in NS 2 GM/100 ML BAG IVPB SCH ×3 (05:27→21:33)
[2017-01-06] MEDS: Levothyroxine 25 MCG TAB PO SCH (05:28)
[2017-01-06] MEDS: Linezolid 600 mg in D5W 300 ml 600 MG/300 ML BAG IVPB SCH (10:08)
[2017-01-06] MEDS: Lidocaine 5% Patch TD SCH (10:09)
[2017-01-06] MEDS: Potassium Chloride 20 mEq ER Tab PO SCH ×2 (10:10→17:14)
[2017-01-06] MEDS: POLYETHYLENE GLYCOL 3350 17 GM/Dose PACKET PO SCH ×2 (10:11→17:14)
--- NOTE | 2017-01-06 15:39 | PN ---
DATE: 01/06/2017 The patient is seen ambulating on the TCU floor in the hallway. The patient is alert, awake, responsive. Overnight nurses' notes were reviewed. No adverse event documented. PHYSICAL EXAMINATION: VITAL SIGNS: T-max 98.1, pulse 66-75, blood pressure improved. Her blood pressure has come down to 136/76-151/78. Respirations 18. O2 sat 95% to 96%. HEAD: Normocephalic, atraumatic. HEENT: Shows pink conjunctivae, anicteric sclerae. No oropharyngeal lesion. NECK: No neck rigidity. CHEST: Kyphosis. LUNGS: Shows decreased breath sounds at the bases, left more than the right. CARDIOVASCULAR: Shows S1, S2, with a regular rhythm, positive systolic murmur right second intercostal space, left sternal border, left second intercostal space. ABDOMEN: Morbidly, morbidly obese. GENITALIA: Male. RECTAL: Deferred. EXTREMITIES: Shows positive dressings by the podiatry. Positive lymphedema. MUSCULOSKELETAL: Shows a body mass index of greater than 55. NEUROLOGIC: The patient is alert, awake, oriented x 3. Cranial nerves II-XII intact and limited. GAIT: Examination is independent. MUSCULOSKELETAL: As dictated above. PSYCHIATRIC: Negative for anxiety and depression. Negative for auditory or visual hallucinations. Negative for suicidal or homicidal ideation. DIAGNOSTICS: None from today. IMPRESSION AND PLAN: 1. Deconditioning. 2. Morbid obesity. 3. Gait dysfunction. 4. Pseudomonas aeruginosa and methicillin-resistant Staphylococcus aureus lower extremity, chronic venous stasis ulceration and infection. 5. Poor compliance and noncompliance. 6. Uncontrolled hypertension secondary to noncompliance with medication. 7. Normocytic anemia. 8. Coumadin dependent atrial fibrillation. 9. Acute kidney injury with underlying chronic kidney disease stage III. 10. Hyperbilirubinemia. 11. Hypertension. 12. Lymphedema of the lower extremity with chronic bilateral lower extremity chronic venous stasis ulceration and cellulitis. 13. Hypokalemia. 14. Degenerative joint disease of the lumbar spine with lumbar disk disease. 15. Hypothyroidism. 16. Prostatitic hypertrophy. 17. Hypovitaminosis D. 1. Deconditioning. 2. Gait dysfunction. 3. Super morbid obesity with elevated body mass index of greater than 56. 4. Acute recurrent systolic congestive heart failure with dilated cardiomyopathy. 5. Pseudomonal aeruginosa and methicillin-resistant Staphylococcus aureus right leg chronic venous stasis ulcer infection. 6. Bilateral lower extremity chronic venous stasis ulceration. 7. Normocytic anemia. 8. Thrombocytopenia. 9. Granulocytosis. 10. Coumadin dependent atrial fibrillation. 11. Acute kidney injury. 12. Hyperbilirubinemia. 13. Poor compliance and noncompliance. 14. Insomnia. 15. Uncontrolled hypertension. 16. Prostatitic hypertrophy. 17. Hypokalemia. 18. Lumbar degenerative disk disease with radiculopathy and neuropathy. 19. Constipation. 20. Hypothyroidism. 21. Hypovitaminosis D. 22. Lymphedema of the lower extremity. 1. Deconditioning. 2. Super morbid obesity. 3. Deconditioning. 4. Gait dysfunction. 5. Deconditioning. 6. Coumadin dependent atrial fibrillation. 7. Insomnia. 8. Uncontrolled hypertension. 9. Prostate hypertrophy. 10. Hypokalemia. 11. Systolic congestive heart failure with underlying cardiomyopathy. 12. Lumbar spine degenerative disk disease. 13. Neuropathy. 14. Constipation. 15. Hypothyroidism. 16. Hypovitaminosis D. 1. Pseudomonas aeruginosa and methicillin-resistant Staphylococcus aureus, bilateral infected venous stasis ulceration, right more than the left. 2. Super morbid obesity with elevated body mass index of greater than 55. 3. Hypertension. 4. Hypoxemia. 5. Acute recurrent systolic congestive heart failure with dilated cardiomyopathy. 6. Normocytic anemia. 7. Granulocytosis. 8. Coumadin dependent atrial fibrillation. 9. Hypokalemia. 10. Acute kidney injury. 11. Hyperbilirubinemia. 12. Acute recurrent systolic congestive heart failure with elevated BNP. 13. Poor compliance and noncompliance. 14. Normocytic anemia. 15. Hypokalemia. 16. Lumbar spine degenerative disk disease. 17. Chronic back pain. 18. Insomnia. 19. Chronic bilateral lower extremity lymphedema. 20. Insomnia. 21. Lumbar spine degenerative disk disease. 1. Bilateral lower extremity infected venous stasis ulceration secondary to methicillin-resistant Staphylococcus aureus and Pseudomonas aeruginosa. 2. Pseudomonas aeruginosa and Methicillin-resistant Staphylococcus aureus right leg chronic venous stasis ulceration. 3. Super morbid obesity with elevated body mass index of greater than 55. 4. Status post uncontrolled hypertension. 5. Coumadin dependent atrial fibrillation. 6. Normocytic anemia with granulocytosis. 7. Hypokalemia. 8. Acute kidney injury with underlying chronic kidney disease stage III. 9. Hyperbilirubinemia. 10. Acute recurrent systolic congestive heart failure with elevated BNP. 11. Bilateral lower extremity venous stasis ulceration with right lower extremity Pseudomonas aeruginosa and methicillin-resistant right lower extremity chronic venous stasis ulceration infection. 12. Insomnia. 13. Lumbar spine degenerative disk disease with low back pain syndrome. 1. Status post uncontrolled accelerated hypertension versus hypertensive urgency. 2. Bilateral lower extremity chronic venous stasis nonhealing and poorly healing ulceration. 3. Pseudomonas aeruginosa and methicillin-resistant Staphylococcus aureus lower extremity cellulitis and stasis ulceration. 4. Hypertension. 5. Super morbid obesity with elevated body mass index of 42. 6. Normocytic anemia. 7. Granulocytosis. 8. Coumadin dependent atrial fibrillation. 9. Hypokalemia. 10. Acute kidney injury with underlying chronic kidney disease. 11. Hyperbilirubinemia. 12. Acute recurrent systolic congestive heart failure with elevated BNP. 13. Cardiomegaly. 14. Atrial fibrillation with age indeterminate septal infarct, rate controlled. 15. History of hypothyroidism, history of prostate hypertrophy, history of neuropathy, history of constipation, history of hypovitaminosis D. 1. Uncontrolled accelerated hypertension versus hypertensive urgency. 2. Bilateral lower extremity chronic venous stasis nonhealing and poor healing ulceration. 3. Pseudomonas aeruginosa and methicillin-resistant Staphylococcus aureus lower extremity ulceration. 4. Super morbid obesity with elevated body mass index of greater than 41. 5. Uncontrolled hypertension. 6. Poor compliance. 7. Mild normocytic anemia. 8. Granulocytosis. 9. Coumadin-dependent atrial fibrillation. 10. Acute kidney injury. 11. Hyperbilirubinemia. 12. Atrial fibrillation with age indeterminate septal infarct. 13. Acute recurrent systolic congestive heart failure with cardiomegaly and vascular congestion. 14. History of constipation. 15. History of hypertension, history of congestive heart failure, history of neuropathy, history of hypothyroidism, history of prostatic hypertrophy, history of hypovitaminosis D. PLAN: At this time, the patient has been followed by infectious disease and podiatry. The last infectious disease recommendation is to continue cefepime and Zyvox. CURRENT MEDICATIONS: 1. Benadryl mg IM bedtime. 2. Clonidine 0.1 mg q.4 p.r.n. 3. Coreg 6.25 twice a day. 4. Coumadin 7.5 mg daily. 5. Cozaar 100 mg daily. 6. Flomax 0.4 mg daily. 7. K-Dur 20 mEq twice a day. 8. Lasix 40 mg IV q.12. 9. Lidoderm 5% patch to the lumbar spine. 10. Lyrica 50 mg twice a day. 11. Cefepime 2 grams IV q.8 hours. 12. MiraLax 17 g twice a day. 13. Synthroid 25 mcg daily. 14. Tramadol or Ultram 50 mg t.i.d. p.r.n. 15. Vitamin D3 2000 units daily. 16. Zyvox 600 mg IV q.12, as per infectious disease. The patient has been ordered serial labs. The patient's further recommendations regarding IV antibiotic duration as per infectious disease. The patient's condition, diagnosis, treatment plan, management plan and need for further diagnostic and therapeutic intervention discussed and explained to the patient in layman's language. All questions and concerns were answered. Dictated and electronically signed, not read. Rashad Brown MD cc: [id number] TT: 01/06/2017 15:39:00 Confirmation # [id number] Dictation # [id number] HERRERA
--- NOTE | 2017-01-06 16:19 | PN ---
DATE: 01/06/2017 The patient is seen earlier today in 315. The patient is doing better. No fevers and chills. PHYSICAL EXAMINATION: VITAL SIGNS: Temperature is 98, blood pressure is 120/70, respiratory rate of 16. HEENT: Unremarkable. NECK: Supple. LUNGS: Have decreased breath sounds. HEART: Normal S1, S2. ABDOMEN: Soft, nontender. LABORATORY EXAMINATION: Reveals a white count is 4.8, hemoglobin is noted. Chemistries are reviewed . Review of orders reveals the patient to be on cefepime and Zyvox. Microbiology reveals the patien t has pseudomonas and MRSA. ASSESSMENT AND PLAN: A 61-year-old with asthma, hypertension, arthritis, congestive heart failure, s ensitive Staphylococcus aureus, cellulitis, atrial fibrillation, chronic lymphedema. Admitted with a right leg methicillin-resistant Staphylococcus aureus and pseudomonas, cellulitis and negative MRI. The patient's leg is much improved. We will change the Zyvox to p.o. and complete a short course of antibiotic therapy. Minh Padilla MD cc: 350 TT: 01/06/2017 16:19:14 Confirmation # [id number] Dictation # [id number]
[2017-01-06] MEDS: DiphenhydrAMINE 50 mg/ml Inj IM SCH (21:31)
[2017-01-07] MEDS: Levothyroxine 25 MCG TAB PO SCH (05:29)
[2017-01-07] MEDS: Cefepime IV 2 gm in NS 2 GM/100 ML BAG IVPB SCH (05:30)
[2017-01-07 06:46] LABS: ADD MANUAL DIFF? NO
[2017-01-07 07:11] LABS: BASO # 0.01 K/mm3 (0.0-2.0); BASO % 0.2 % (0.0-3.0); EOS # 0.1 (0.0-0.7); EOS % 2.5 % (1.5-5.0); GRAN # 3.54 (1.4-6.5); GRAN % 67.4 % (50.0-68.0); LYMPH # 1.2 (1.2-3.4); LYMPH % 21.9 % (22.0-35.0); MEAN CELL VOLUME 92.4 fL (80.0-105.0); MEAN CORPUSCULAR HEMOGLOBIN 30.5 pg (25.0-35.0); MEAN PLATELET VOLUME 9.8 fl (7.0-11.0); MONO # 0.4 (0.1-0.6); PLATELET COUNT 105 10^3/uL (120.0-450.0); WHITE BLOOD COUNT 5.3 10^3/ul (4.5-11.0)
[2017-01-07 07:15] LABS: INR 1.8 (0.93-1.08); PARTIAL THROMBOPLASTIN TIME 32.2 Seconds (23.7-30.8)
[2017-01-07 07:25] LABS: BILIRUBIN,DIRECT 0.7 mg/dL (0.0-0.4); BILIRUBIN,TOTAL 2.6 mg/dL (0.2-1.3); MAGNESIUM 1.8 mg/dL (1.7-2.2); POTASSIUM 4.1 mmol/L (3.6-5.0); TOTAL PROTEIN 7.6 g/dL (5.8-8.3)
[2017-01-07] MEDS: Potassium Chloride 20 mEq ER Tab PO SCH (09:01)
[2017-01-07] MEDS: Lidocaine 5% Patch TD SCH (09:02)
[2017-01-07] MEDS: POLYETHYLENE GLYCOL 3350 17 GM/Dose PACKET PO SCH (09:03)
[2017-01-07 12:10] VITALS: BP 153/94; PULSE 79; RESP 18; TEMP 98.1; O2SAT 99
[2017-01-07] MEDS ORDERED: Pneumococcal 23-Valent Vaccine IM ONE (12:30)
--- NOTE | 2017-01-07 13:23 | DS ---
The patient has been cleared by infectious disease and patient's all IV antibiotics have been stopped. The patient has been requesting to be discharged also, so patient was cleared by all physicians involved in the care of the patient. Overnight nurse's notes were reviewed. No adverse events documented. PHYSICAL EXAMINATION: VITAL SIGNS: T-max 98.5, heart rate 64. Blood pressure is down to 122/72, 161/ 92, 151/78, 136/76. Respirations 16, O2 sat 95%. Intake and output not documented. HEAD: Normocephalic, atraumatic. HEENT: Shows pink conjunctivae, anicteric sclerae. No oropharyngeal lesion. NECK: No neck rigidity. CHEST: Kyphosis. LUNGS: Shows questionable decreased breath sounds at the left base. No rales, crackles, or wheezing. CARDIOVASCULAR: S1, S2, irregular rhythm, positive systolic murmur right second intercostal space, left sternal border, left second intercostal space. ABDOMEN: Obese, protuberant. GENITALIA: Male. RECTAL: Deferred. EXTREMITIES: Shows positive Kameron wraps, positive dressing, positive lymphedema. MUSCULOSKELETAL: Shows a body mass index of 56. NEUROLOGIC: Cranial nerves II-XII intact and limited. PSYCHIATRIC: Negative for anxiety. Negative for depression. Negative for suicidal or homicidal ideation. Negative for auditory or visual hallucination. GAIT: Independent. DIAGNOSTICS: 01/07, WBC 5.3, hemoglobin and hematocrit 13.2/40.0, platelet 105, 000. Manual platelet pending. PT 19.4, INR 1.8. Sodium 138, potassium 4.1, chloride 98, CO2 of 28, anion gap 16, BUN 26, creatinine 1.6, GFR 54, glucose 85 , calcium 9.0, magnesium 1.8, total bili 2.6. FINAL IMPRESSION, PLAN, AND DISCHARGE DIAGNOSES: 1. Pseudomonas aeruginosa and methicillin-resistant Staphylococcus aureus, right leg chronic stasis ulcerations, cellulitis, and leg infection. 2. Deconditioning. 3. Gait dysfunction. 4. Super morbid obesity. 5. Hypertension. 6. Transient uncontrolled hypertension. 7. History of poor compliance, noncompliance. 8. Normocytic anemia with thrombocytopenia. 9. Coumadin dependent atrial fibrillation. 10. Acute kidney injury with underlying chronic kidney disease stage II. 11. Hyperbilirubinemia. 12. Elevated body mass index of 56. 13. Status post gastric bypass surgery. 14. History of insomnia. 15. Coumadin dependent atrial fibrillation. 16. Hypertension. 17. Prostatic hypertrophy. 18. Hypokalemia. 19. Acute recurrent systolic congestive heart failure with elevated BNP. 20. 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 21. MiraLax 17 g twice a day. 22. Constipation. 23. Hypothyroidism. 24. Hypovitaminosis D. 1. Deconditioning. 2. Morbid obesity. 3. Gait dysfunction. 4. Pseudomonas aeruginosa and methicillin-resistant Staphylococcus aureus lower extremity, chronic venous stasis ulceration and infection. 5. Poor compliance and noncompliance. 6. Uncontrolled hypertension secondary to noncompliance with medication. 7. Normocytic anemia. 8. Coumadin dependent atrial fibrillation. 9. Acute kidney injury with underlying chronic kidney disease stage III. 10. Hyperbilirubinemia. 11. Hypertension. 12. Lymphedema of the lower extremity with chronic bilateral lower extremity chronic venous stasis ulceration and cellulitis. 13. Hypokalemia. 14. Degenerative joint disease of the lumbar spine with lumbar disk disease. 15. Hypothyroidism. 16. Prostatitic hypertrophy. 17. Hypovitaminosis D. 1. Deconditioning. 2. Gait dysfunction. 3. Super morbid obesity with elevated body mass index of greater than 56. 4. Acute recurrent systolic congestive heart failure with dilated cardiomyopathy. 5. Pseudomonal aeruginosa and methicillin-resistant Staphylococcus aureus right leg chronic venous stasis ulcer infection. 6. Bilateral lower extremity chronic venous stasis ulceration. 7. Normocytic anemia. 8. Thrombocytopenia. 9. Granulocytosis. 10. Coumadin dependent atrial fibrillation. 11. Acute kidney injury. 12. Hyperbilirubinemia. 13. Poor compliance and noncompliance. 14. Insomnia. 15. Uncontrolled hypertension. 16. Prostatitic hypertrophy. 17. Hypokalemia. 18. Lumbar degenerative disk disease with radiculopathy and neuropathy. 19. Constipation. 20. Hypothyroidism. 21. Hypovitaminosis D. 22. Lymphedema of the lower extremity. 1. Deconditioning. 2. Super morbid obesity. 3. Deconditioning. 4. Gait dysfunction. 5. Deconditioning. 6. Coumadin dependent atrial fibrillation. 7. Insomnia. 8. Uncontrolled hypertension. 9. Prostate hypertrophy. 10. Hypokalemia. 11. Systolic congestive heart failure with underlying cardiomyopathy. 12. Lumbar spine degenerative disk disease. 13. Neuropathy. 14. Constipation. 15. Hypothyroidism. 16. Hypovitaminosis D. 1. Pseudomonas aeruginosa and methicillin-resistant Staphylococcus aureus, bilateral infected venous stasis ulceration, right more than the left. 2. Super morbid obesity with elevated body mass index of greater than 55. 3. Hypertension. 4. Hypoxemia. 5. Acute recurrent systolic congestive heart failure with dilated cardiomyopathy. 6. Normocytic anemia. 7. Granulocytosis. 8. Coumadin dependent atrial fibrillation. 9. Hypokalemia. 10. Acute kidney injury. 11. Hyperbilirubinemia. 12. Acute recurrent systolic congestive heart failure with elevated BNP. 13. Poor compliance and noncompliance. 14. Normocytic anemia. 15. Hypokalemia. 16. Lumbar spine degenerative disk disease. 17. Chronic back pain. 18. Insomnia. 19. Chronic bilateral lower extremity lymphedema. 20. Insomnia. 21. Lumbar spine degenerative disk disease. 1. Bilateral lower extremity infected venous stasis ulceration secondary to methicillin-resistant Staphylococcus aureus and Pseudomonas aeruginosa. 2. Pseudomonas aeruginosa and Methicillin-resistant Staphylococcus aureus right leg chronic venous stasis ulceration. 3. Super morbid obesity with elevated body mass index of greater than 55. 4. Status post uncontrolled hypertension. 5. Coumadin dependent atrial fibrillation. 6. Normocytic anemia with granulocytosis. 7. Hypokalemia. 8. Acute kidney injury with underlying chronic kidney disease stage III. 9. Hyperbilirubinemia. 10. Acute recurrent systolic congestive heart failure with elevated BNP. 11. Bilateral lower extremity venous stasis ulceration with right lower extremity Pseudomonas aeruginosa and methicillin-resistant right lower extremity chronic venous stasis ulceration infection. 12. Insomnia. 13. Lumbar spine degenerative disk disease with low back pain syndrome. 1. Status post uncontrolled accelerated hypertension versus hypertensive urgency. 2. Bilateral lower extremity chronic venous stasis nonhealing and poorly healing ulceration. 3. Pseudomonas aeruginosa and methicillin-resistant Staphylococcus aureus lower extremity cellulitis and stasis ulceration. 4. Hypertension. 5. Super morbid obesity with elevated body mass index of 42. 6. Normocytic anemia. 7. Granulocytosis. 8. Coumadin dependent atrial fibrillation. 9. Hypokalemia. 10. Acute kidney injury with underlying chronic kidney disease. 11. Hyperbilirubinemia. 12. Acute recurrent systolic congestive heart failure with elevated BNP. 13. Cardiomegaly. 14. Atrial fibrillation with age indeterminate septal infarct, rate controlled. 15. History of hypothyroidism, history of prostate hypertrophy, history of neuropathy, history of constipation, history of hypovitaminosis D. 1. Uncontrolled accelerated hypertension versus hypertensive urgency. 2. Bilateral lower extremity chronic venous stasis nonhealing and poor healing ulceration. 3. Pseudomonas aeruginosa and methicillin-resistant Staphylococcus aureus lower extremity ulceration. 4. Super morbid obesity with elevated body mass index of greater than 41. 5. Uncontrolled hypertension. 6. Poor compliance. 7. Mild normocytic anemia. 8. Granulocytosis. 9. Coumadin-dependent atrial fibrillation. 10. Acute kidney injury. 11. Hyperbilirubinemia. 12. Atrial fibrillation with age indeterminate septal infarct. 13. Acute recurrent systolic congestive heart failure with cardiomegaly and vascular congestion. 14. History of constipation. 15. History of hypertension, history of congestive heart failure, history of neuropathy, history of hypothyroidism, history of prostatic hypertrophy, history of hypovitaminosis D. At this time, patient is cleared for discharge. DISCHARGE MEDICATIONS: 1. Coreg 6.25 mg twice a day. 2. Vitamin D3 at 2000 international unit daily. 3. Lasix. 4. Furosemide 40 mg twice a day. 5. Synthroid 25 mcg daily. 6. Lidoderm 5% patch to the lumbar spine area. 7. Zyvox 600 mg twice a day for 7 days. 8. Cozaar 100 mg daily. 9. Amitiza 24 mcg daily. 10. MiraLax 17 g twice a day. 11. Potassium 20 mEq twice a day. 12. Lyrica 50 mg twice a day. 13. Flomax 0.4 mg daily. 14. Coumadin at 7.5 mg daily. FOLLOWUP: The patient is discharged home with discharge followup with Dr. Brown and Dr. Sebastian within 1 week. The patient's case is referred to [facility] home health aide, home PT. Discharge followup with Dr. Brown within 1 week with all medication. The patient's discharge medications are as per ambulatory orders and updated ambulatory orders and the discharge meds, which are sent to the patient's pharmacy of choice. During this hospitalization on TCU and hospitalization on the acute side from through 01/03/2017, patient was regularly and daily updated about patient's condition, diagnosis, test results, recommendation by all physicians involved in the care of the patient and all questions and concerns and test results, diagnostics and recommendation by all physicians answered to the patient on a daily basis and explained to the patient on a daily basis in layman 's language. Time spent in the entire discharge process more than 45 minutes. Dictated and electronically signed, not read. Rashad Brown MD cc: [id number] TT: 01/07/2017 13:23:05 sn HERRERA
--- NOTE | 2017-01-07 16:07 | CP.PCM.PN ---
<Priyanka Barba - Last Filed: 01/07/17 16:03> Subjective - Date & Time of Evaluation Date of Evaluation: 01/07/17 Time of Evaluation: 09:00 - Subjective Subjective: 61 year old male seen at bedside in TCU regarding right leg ulceration. Patient denies any other pedal complaints. He denies any acute events overnight. He admits that he may be going home today and will follow up with Dr. Sebastian in the wound care center. Patient denies any n/f/v/c/d/sob. Objective - Vital Signs/Intake and Output Vital Signs (last 24 hours): Temp Pulse Resp BP Pulse Ox 98.1 F 79 18 153/94 H 99 01/07/17 10:00 01/07/17 10:00 01/07/17 10:00 01/07/17 10:00 01/07/17 10:00 - Labs Labs: 01/07/17 06:20 01/07/17 06:20 PT 19.4 Seconds (9.9-11.8) H 01/07/17 06:20 INR 1.80 (0.93-1.08) H 01/07/17 06:20 APTT 32.2 Seconds (23.7-30.8) H 01/07/17 06:20 - Constitutional Appears: Well, Non-toxic, No Acute Distress - Extremities Exam Additional comments: Vasc: non-palpable pedal pulses b/l, TG wnl, CFT < 3 sec to all digits, +2 pitting edema neuro: gross sensation diminished derm: +2 pitting edema, mild localized erythema, superficial ulcerations ranging from approximately 2.5cm x 3 cm x 0.2 to approximately 0.5cm x 0.5cm x 0.2 cm on the right lateral leg, granular base, fibrotic border, mild serous drainage, no purulence, no probe to bone, no tunneling, no ascending cellulitis ortho: mild pain to palpation of right lateral leg - Neurological Exam Neurological Exam: Alert, Awake, Oriented x3 - Psychiatric Exam Psychiatric exam: Normal Affect, Normal Mood Assessment and Plan - Assessment and Plan (Free Text) Assessment: 61 y/o male seen at bedside in TCU for right leg venous stasis ulceration Plan: patient examined and evaluated with attending Dr. Sebastian labs and vitals reviewed continue IV abx as per ID Legs cleansed with normal sterile saline applied maxorb, optifoam, kerlix, HECTOR and tubigrip to RLE applied tubigrip to LLE patient to continue compression dressings to extremities patient stable from podiatry standpoint and instructed to follow up at wound care center upon discharge <Anusha Sebastian - Last Filed: 01/13/17 14:18> Objective - Vital Signs/Intake and Output Vital Signs (last 24 hours): Temp Pulse Resp BP Pulse Ox 98.1 F 79 18 153/94 H 99 01/07/17 10:00 01/07/17 10:00 01/07/17 10:00 01/07/17 10:00 01/07/17 10:00 - Labs Labs: 01/07/17 06:20 01/07/17 06:20 PT 19.4 Seconds (9.9-11.8) H 01/07/17 06:20 INR 1.80 (0.93-1.08) H 01/07/17 06:20 APTT 32.2 Seconds (23.7-30.8) H 01/07/17 06:20 Attending/Attestation - Attestation I have personally seen and examined this patient.: Yes I have fully participated in the care of the patient.: Yes I have reviewed all pertinent clinical information, including history, physical exam and plan: Yes
== END 2017-01-07 13:57 | disposition home or self-care (01) | DRG 592 ==
LOC: TRCU 17:22
PROVIDERS: ADMIT Internal Medicine; ATTEND Internal Medicine
PROC: F07Z9FZ Gait Training/Functional Ambulation Treatment using Assistive, Adaptive, Supportive or Protective Equipment (ICD-10-PCS; principal; 2017-01-04)
PROC: F07M6ZZ Therapeutic Exercise Treatment of Musculoskeletal System - Whole Body (ICD-10-PCS; 2017-01-04)
PROC: 3E0234Z Introduction of Serum, Toxoid and Vaccine into Muscle, Percutaneous Approach (ICD-10-PCS; 2017-01-07)
DX: L97.919 Non-pressure chronic ulcer of unspecified part of right lower leg with unspecified severity (principal); I50.21 Acute systolic (congestive) heart failure; D69.6 Thrombocytopenia, unspecified; I42.0 Dilated cardiomyopathy; I27.2 Other secondary pulmonary hypertension; N17.9 Acute kidney failure, unspecified; N18.3 Chronic kidney disease, stage 3 (moderate); Z68.43 Body mass index [BMI] 50.0-59.9, adult; L03.115 Cellulitis of right lower limb; I13.0 Hypertensive heart and chronic kidney disease with heart failure and stage 1 through stage 4 chronic kidney disease, or unspecified chronic kidney disease; E66.01 Morbid (severe) obesity due to excess calories; L97.929 Non-pressure chronic ulcer of unspecified part of left lower leg with unspecified severity; R53.81 Other malaise; R26.9 Unspecified abnormalities of gait and mobility; D64.9 Anemia, unspecified; E03.9 Hypothyroidism, unspecified; E55.9 Vitamin D deficiency, unspecified; E87.6 Hypokalemia; G47.00 Insomnia, unspecified; G62.9 Polyneuropathy, unspecified; I08.1 Rheumatic disorders of both mitral and tricuspid valves; I48.2 Chronic atrial fibrillation; I83.019 Varicose veins of right lower extremity with ulcer of unspecified site; I87.8 Other specified disorders of veins; I89.0 Lymphedema, not elsewhere classified; J45.909 Unspecified asthma, uncomplicated; K59.00 Constipation, unspecified; K76.0 Fatty (change of) liver, not elsewhere classified; M12.9 Arthropathy, unspecified; M19.90 Unspecified osteoarthritis, unspecified site; M47.26 Other spondylosis with radiculopathy, lumbar region; M51.16 Intervertebral disc disorders with radiculopathy, lumbar region; N40.0 Benign prostatic hyperplasia without lower urinary tract symptoms; Z79.01 Long term (current) use of anticoagulants; Z86.14 Personal history of Methicillin resistant Staphylococcus aureus infection; Z91.14 Patient's other noncompliance with medication regimen; Z91.19 Patient's noncompliance with other medical treatment and regimen; Z98.84 Bariatric surgery status; Z23 Encounter for immunization

== ENCOUNTER 2018-02-10 16:44 | Emergency (ER) | payer MEDICARE ==
[2018-02-10 16:45] VITALS: PULSE 58; BMI 58.2
[2018-02-10 16:59] VITALS: PULSE 86
[2018-02-10 17:39] LABS: BASO # 0.01 K/mm3 (0.0-2.0); BASO % 0.1 % (0.0-3.0); EOS # 0.1 (0.0-0.7); EOS % 0.8 % (1.5-5.0); GRAN # 7.62 (1.4-6.5); GRAN % 82.2 % (50.0-68.0); HEMOGLOBIN 14.4 g/dL (14.0-18.0); LYMPH # 1.1 (1.2-3.4); LYMPH % 11.9 % (22.0-35.0); MEAN CELL VOLUME 93.6 fl (80.0-105.0); MEAN CORPUSCULAR HEMOGLOBIN 30.6 pg (25.0-35.0); MEAN CORPUSCULAR HGB CONC 32.7 g/dl (31.0-37.0); MEAN PLATELET VOLUME 9.1 fl (7.0-11.0); MONO # 0.5 (0.1-0.6); RBC 4.7 10^6/uL (3.5-6.1); RED CELL DISTRIBUTION WIDTH 14.7 % (11.5-14.5); WHITE BLOOD COUNT 9.3 10^3/ul (4.5-11.0)
[2018-02-10 17:46] LABS: ALB/GLOB RATIO 1.2 (1.1-1.8); ALBUMIN 4.3 g/dL (3.0-4.8); CALCIUM 9.4 mg/dL (8.4-10.5)
[2018-02-10 17:48] LABS: INR 1.35 (0.93-1.08); PROTHROMBIN TIME 15.5 SECONDS (9.4-12.5)
--- NOTE | 2018-02-10 18:44 | RAD ---
HISTORY: constipation COMPARISON: 10/27/2016 CT abdomen pelvis FINDINGS: BOWEL: Mildly dilated loops of small bowel with air-fluid levels identified. Similar finding seen in colon. Bariatric paraphernalia again identified. BONES: Normal. OTHER FINDINGS: 15 mm right upper quadrant calculus known to be within the gallbladder on prior cross-sectional imaging studies IMPRESSION: No evidence of mechanical obstruction. Additional benign and/or incidental findings described above.
--- NOTE | 2018-02-10 19:27 | ED PDOC ---
Arrival/HPI - General Chief Complaint: Abnormal Skin Integrity Time Seen by Provider: 02/10/18 16:59 Historian: Patient - History of Present Illness Narrative History of Present Illness (Text): 02/10/18 19:23 62yo male with pmhx of hypertension, DVT, leg ulcer who was referred to ED by Dr. Sebastian to r/o cellulitis and obstruction. Patient reports 3weeks history of constipation. States he saw his PMD and was given a laxative. He reports BM every time he takes the laxative. States the last time he had a BM was this morning. He saw Dr. Sebastian today and she did a wound culture and referred him to ED. He denies pain to his legs, SOB, diaphoresis, fever, chills, cough, chest pain, nausea, vomiting, abdominal pain, melena, hematemesis, any other complaint. States he have not taken any of his medications for 3weeks, because he thinks is causing his constipation. Past Medical History - Provider Review Nursing Documentation Reviewed: Yes - Infectious Disease Hx of Infectious Diseases: None - Tetanus Immunization Tetanus Immunization: Unknown - Cardiac Hx Cardiac Disorders: Yes Hx Atrial Fibrillation: Yes Hx Congestive Heart Failure: Yes Hx Hypertension: Yes - Pulmonary Hx Respiratory Disorders: Yes Other/Comment: CHF - Neurological Hx Neurological Disorder: No - HEENT Hx HEENT Disorder: No - Renal Hx Renal Disorder: Yes - Endocrine/Metabolic Hx Endocrine Disorders: No - Hematological/Oncological Hx Blood Disorders: No - Integumentary Hx Dermatological Disorder: Yes (CELLULITIS TO LOWER EXTREMITY) - Musculoskeletal/Rheumatological Hx Musculoskeletal Disorders: Yes Hx Back Pain: Yes Hx Falls: Yes - Gastrointestinal Hx Gastrointestinal Disorders: Yes Hx Constipation: Yes - Genitourinary/Gynecological Hx Reproductive Disorders: No - Psychiatric Hx Psychophysiologic Disorder: Yes Hx Depression: Yes Hx Substance Use: Yes - Surgical History Hx Gastric Bypass Surgery: Yes (Lap band) Hx Orthopedic Surgery: Yes - Anesthesia Hx Anesthesia: Yes Hx Anesthesia Reactions: No Hx Malignant Hyperthermia: No - Suicidal Assessment Feels Threatened In Home Enviroment: No Family/Social History - Physician Review Nursing Documentation Reviewed: Yes Family/Social History: Unknown Family HX Smoking Status: Never Smoked Hx Alcohol Use: Yes Hx Substance Use: Yes Hx Substance Use Treatment: No Allergies/Home Meds Allergies/Adverse Reactions: Allergies No Known Allergies Allergy (Verified 12/31/16 13:16) Review of Systems - Physician Review All systems were reviewed & negative as marked: Yes - Review of Systems Constitutional: Normal Eyes: Normal ENT: Normal Respiratory: Normal Cardiovascular: Edema (B/L) Gastrointestinal: Constipation. absent: Abdominal Pain, Diarrhea, Nausea, Vomiting, Hematochezia, Hematemesis Genitourinary Male: Normal Musculoskeletal: Arthralgias (Leg ulcer) Skin: Normal Neurological: Normal Endocrine: Normal Hemo/Lymphatic: Normal Psychiatric: Normal Physical Exam Vital Signs Reviewed: Yes Vital Signs Temp Pulse Resp BP Pulse Ox 02/10/18 19:58 97.9 F 86 16 158/92 H 99 02/10/18 19:28 158/92 H 02/10/18 16:58 98.6 F 86 17 166/102 H 98 Temperature: Afebrile Blood Pressure: Hypertensive Pulse: Regular Respiratory Rate: Normal Appearance: Positive for: Well-Appearing, Non-Toxic, Comfortable, Other (Morbid obesity) Pain Distress: None Mental Status: Positive for: Alert and Oriented X 3 - Systems Exam Head: Present: Atraumatic, Normocephalic Pupils: Present: PERRL Extroacular Muscles: Present: EOMI Conjunctiva: Present: Normal Mouth: Present: Moist Mucous Membranes Neck: Present: Normal Range of Motion Respiratory/Chest: Present: Clear to Auscultation, Good Air Exchange. No: Respiratory Distress, Accessory Muscle Use, Wheezes, Decreased Breath Sounds, Rales, Retracting, Rhonchi Cardiovascular: Present: Regular Rate and Rhythm, Normal S1, S2. No: Murmurs Abdomen: No: Tenderness, Distention, Peritoneal Signs Back: Present: Normal Inspection Upper Extremity: Present: Normal Inspection. No: Cyanosis, Edema Lower Extremity: Present: Normal Inspection, Edema (4+ non pitting edema b/l), NORMAL PULSES (Decreased), Neurovascularly Intact, Other (Dry superficial ulcer with clean margin noted on lateral right lower leg.). No: CALF TENDERNESS, Erythema, Temperature Abnormalties Neurological: Present: GCS=15, CN II-XII Intact, Speech Normal Skin: Present: Warm, Dry, Normal Color. No: Rashes Psychiatric: Present: Alert, Oriented x 3, Normal Insight, Normal Concentration Medical Decision Making ED Course and Treatment: 02/10/18 20:30 Pt presented for stated history. He was not in any distress, hemodynamically stable. He reported BM this morning with laxative, denies abdominal pain, N/V. Abdominal plain xray was negative for obstruction Lab was noted without leukocytosis. Pt had no sign of infection. Elevated BNP was noted. Pt states he have not been complaint with any of his medications for 3weeks. He was also subtherapeutic on his anticoagulant. He was given Lasix in ED. Strongly advised to take all his medications as was directed. Case was DW Dr. Sebastian and he requested that pt be DC home to f/u with her on Saturday Case was also DW Dr. Brown who knows pt very well and he requested that pt be Dc home to see him in his office tomorrow. All result and plan was DW the pt. He was strongly advised to keep his appointment with both Idania Brown and Romulo. TRT ED for any new or worsening symptoms. Advised to increase his fiber intake and take his rx laxative as was directed. - Lab Interpretations Lab Results: 02/10/18 17:25 02/10/18 17:25 Lab Results 02/10/18 17:25: NT-Pro-B Natriuret Pep 3450 H 02/10/18 17:25: PT 15.5 H, INR 1.35 H, APTT 32.0 02/10/18 17:25: Sodium 145, Potassium 5.1 H, Chloride 108 H, Carbon Dioxide 26, Anion Gap 17, BUN 20, Creatinine 1.5, Est GFR ( Amer) 58, Est GFR (Non- Af Amer) 48, Random Glucose 99, Calcium 9.4, Total Bilirubin 2.4 H, AST 19, ALT 19, Alkaline Phosphatase 93, Total Protein 7.9, Albumin 4.3, Globulin 3.7, Albumin/Globulin Ratio 1.2 02/10/18 17:25: WBC 9.3 D, RBC 4.70, Hgb 14.4, Hct 44.0, MCV 93.6, MCH 30.6, MCHC 32.7, RDW 14.7 H, Plt Count 165, MPV 9.1, Gran % 82.2 H, Lymph % (Auto) 11.9 L, [place] % (Auto) 5.0, Eos % (Auto) 0.8 L, Baso % (Auto) 0.1, Gran # 7.62 H , Lymph # (Auto) 1.1 L, [place] # (Auto) 0.5, Eos # (Auto) 0.1, Baso # (Auto) 0.01 - RAD Interpretation Radiology Orders: 02/10/18 17:12 ABD 2 VIEWS (FLAT/UP OR DECUB) [RAD] Stat DUPLEX LOWER EXTRM VEIN BILAT [US] Stat - Medication Orders Current Medication Orders: Discontinued Medications Furosemide (Lasix) 40 mg PO STAT STA Stop: 02/10/18 19:24 Last Admin: 02/10/18 19:28 Dose: 40 mg MAR Blood Pressure Document 02/10/18 19:28 MS (Rec: 02/10/18 19:29 MS [id number]) Blood Pressure Blood Pressure (100/60-150/90) 158/92 Disposition/Present on Arrival - Present on Arrival Any Indicators Present on Arrival: No History of DVT/PE: No History of Uncontrolled Diabetes: Yes Urinary Catheter: No History of Decub. Ulcer: No History Surgical Site Infection Following: None - Disposition Have Diagnosis and Disposition been Completed?: Yes Diagnosis: CHF (congestive heart failure), Ulcer of right lower extremity Disposition: HOME/ ROUTINE Disposition Time: 19:35 Patient Plan: Discharge Condition: STABLE Discharge Instructions (ExitCare): Heart Failure, Adult, Heart Failure (ED) Additional Instructions: Follow up with Dr. Brown tomorrow Follow up with Dr. Sebastian on Saturday Take your medications as directed and increase your fiber intake Return to ED for any new symptoms Referrals: Rashad Brown MD [Primary Care Provider] - Follow up with primary Forms: [employer] (Icelandic)
[2018-02-10 19:47] VITALS: BP 158/92
[2018-02-10 20:01] VITALS: RESP 16; TEMP 97.9; O2SAT 99
--- NOTE | 2018-02-11 14:18 | US ---
HISTORY: Leg pain and swelling. Evaluate for DVT PHYSICIAN(S): Oscar Berkowitz MD. TECHNIQUE: Duplex sonography and color-flow Doppler with graded compression were used to evaluate the deep venous systems of both lower extremities. The exam is extremely limited by body habitus and edema. The lower femoral veins and tibial veins are not adequately seen. FINDINGS: The visualized deep venous systems of both lower extremities are sonographically normal and compressible. Normal wave forms and augmentation are seen. There is no sonographic evidence for deep venous thrombosis in the visualized segments of both lower extremities. IMPRESSION: No sonographic evidence for deep venous thrombosis in the visualized segments of both lower extremities. Very limited study.
== END 2018-02-10 19:58 | disposition home or self-care (01) ==
LOC: ED 16:44
DX: I11.0 Hypertensive heart disease with heart failure (principal); I50.9 Heart failure, unspecified; L97.819 Non-pressure chronic ulcer of other part of right lower leg with unspecified severity

== ENCOUNTER 2018-02-12 11:38 | Emergency (ER) | payer MEDICARE ==
[2018-02-12 11:39] VITALS: PULSE 58
[2018-02-12 11:49] VITALS: BMI 54.1
[2018-02-12] MEDS ORDERED: Mineral Oil Enema 135 ml RC ONE (12:38)
[2018-02-12] MEDS ORDERED: Peg-Electrolyte Oral Soln 4L (Golytely) PO ONE (12:39)
[2018-02-12] MEDS ORDERED: Docusate-Senna 50 mg-8.6 mg Tab PO ONE (12:39)
--- NOTE | 2018-02-12 13:05 | ED PDOC ---
Arrival/HPI - General Chief Complaint: GI Problem Time Seen by Provider: 02/12/18 12:37 Historian: Patient - History of Present Illness Narrative History of Present Illness (Text): 02/12/18 12:34 A 63 year old male, whose past medical history includes hypertension, DVT, and leg ulcer, presents to the emergency department for re-evaluation of poor bowel movement for 3 weeks. Patient reports he came to the ER 2 days ago for similar complaint and had an Abdominal X-Ray and Extremity Ultrasound performed, which revealed to be negative. Patient mentions as well visiting PMD 1-2 weeks ago and was prescribed Laxatives and Magnesium Citrate/lactulose, however has had no relief. States still experiencing loose bowel movement/diarrhea, non-bloody, occasional flatus, intermittent nausea, and decreased appetite. Patient denies any vomiting, fever, chest pain, shortness of breath, or any other complaints at this time. pt is here for further eval pt denied LOC/trauma/fall PMD: Dr. Brown Time/Duration: Other Symptom Onset: Gradual Symptom Course: Worsening Quality: Tightness, Cramping Severity Level: Severe Activities at Onset: Rest Context: Home Past Medical History - Provider Review Nursing Documentation Reviewed: Yes - Travel History Have you recently traveled outside [place] w/in the past 3 mons?: No - Past History Past History: No Previous - Infectious Disease Hx of Infectious Diseases: None - Tetanus Immunization Tetanus Immunization: Unknown - Cardiac Hx Cardiac Disorders: Yes Hx Atrial Fibrillation: Yes Hx Congestive Heart Failure: Yes Hx Hypertension: Yes - Pulmonary Hx Respiratory Disorders: Yes Other/Comment: CHF - Neurological Hx Neurological Disorder: No - HEENT Hx HEENT Disorder: No - Renal Hx Renal Disorder: Yes - Endocrine/Metabolic Hx Endocrine Disorders: No - Hematological/Oncological Hx Blood Disorders: No - Integumentary Hx Dermatological Disorder: Yes (CELLULITIS TO LOWER EXTREMITY) - Musculoskeletal/Rheumatological Hx Musculoskeletal Disorders: Yes Hx Back Pain: Yes Hx Falls: Yes - Gastrointestinal Hx Gastrointestinal Disorders: Yes Hx Constipation: Yes - Genitourinary/Gynecological Hx Reproductive Disorders: No - Psychiatric Hx Psychophysiologic Disorder: Yes Hx Depression: Yes Hx Substance Use: Yes - Surgical History Hx Gastric Bypass Surgery: Yes (Lap band) Hx Orthopedic Surgery: Yes - Anesthesia Hx Anesthesia: Yes Hx Anesthesia Reactions: No Hx Malignant Hyperthermia: No - Suicidal Assessment Feels Threatened In Home Enviroment: No Family/Social History - Physician Review Nursing Documentation Reviewed: Yes Family/Social History: No Known Family HX Smoking Status: Never Smoked Hx Alcohol Use: Yes Hx Substance Use: Yes Hx Substance Use Treatment: No Allergies/Home Meds Allergies/Adverse Reactions: Allergies No Known Allergies Allergy (Verified 12/31/16 13:16) Home Medications: Home Meds Medication Instructions Recorded Confirmed Furosemide [Lasix] 80 mg PO BID 02/12/18 02/12/18 Linaclotide [Linzess] 1 cap PO DAILY 02/12/18 02/12/18 Multivit-Min/FA/Lycopen/Lutein 1 tab PO DAILY 02/12/18 02/12/18 [Centrum Silver Men Tablet] Rosuvastatin Calcium [Crestor] 1 tab PO DAILY 02/12/18 02/12/18 Review of Systems - Physician Review All systems were reviewed & negative as marked: Yes - Review of Systems Constitutional: absent: Fevers Eyes: Normal ENT: Normal Respiratory: absent: SOB Cardiovascular: absent: Chest Pain Gastrointestinal: Abdominal Pain, Diarrhea (loos bowel movement/diarrhea, non- bloody), Nausea (intermittently), Appetite Changes (decreased appetite), Other ( occasional flatus). absent: Vomiting Genitourinary Male: Normal Musculoskeletal: Normal Skin: Normal Neurological: Normal Endocrine: Normal Hemo/Lymphatic: Normal Psychiatric: Normal Physical Exam - Physical Exam Narrative Physical Exam (Text): 02/12/18 1240 General: alert/awake, GCS = 15, oriented x 3, resting in bed, uncomfortable, cooperative, interactive; NAD Head: NC/AT EYE: PERRLA, EOMI, sclera anicteric, no nystagmus, no photophobia; visual field intact b/l Facial: WNL Oral: uvula/tongue are midline, no exudate/lesions, no drooling/stridor, no dysphonia; poor dentitions, mild dry oral mucosa NECK: intact ROM, no midline tenderness, no nuchal rigidity, no meningeal signs ; no step off Chest: CTA b/l, no w/r/r; no tachypenia, no accessory muscle use noted Chest Wall: no focal tenderness, no gross deformities, no crepitus, no lesions/ rashes noted Cardiac: +S1, +S2, no m/r/r, no tachycardia Abdominal: +slight hyperactive BS, soft/nd, mild diffuse abd tenderness, well nourished/morbid obese patient; no masses/rebound/guarding/rigidity; no cummings' s sign, no mcburney's point tenderness Extremities: intact ROM, strength 5-/5 grossly intact in all limbs, neurovasc intact b/l; + ambulatory; reflex +2/2; + b/l lower ext pitting edema up to mid knee +3/6 edema; no az's sign noted b/l BACK: no step off, no midline tenderness, NO crepitus, no gross deformities noted; Intact ROM SKIN: cap refill ~ 1 sec, no ulcerations, no petechiae, no rashes; no gross pallor NEURO: CNII-XII WNL, no facial asymmetries, no slurr speech, oriented x 3 NIH stroke scale ~ 0 Psych: normal insight, mild flat affect; follows command with ease Vital Signs Reviewed: Yes Vital Signs Temp Pulse Resp BP Pulse Ox 02/12/18 17:58 98.0 F 89 18 169/102 H 96 02/12/18 16:09 97 H 22 163/101 H 94 L 02/12/18 14:00 98 F 90 24 178/102 H 95 02/12/18 11:55 98.1 F 95 H 24 193/117 H 94 L Temperature: Afebrile Blood Pressure: Hypertensive Pulse: Regular Respiratory Rate: Normal Appearance: Positive for: Well-Appearing, Uncomfortable Pain Distress: Mild Mental Status: Positive for: Alert and Oriented X 3 - Systems Exam Head: Present: Atraumatic, Normocephalic Medical Decision Making ED Course and Treatment: 02/12/18 12:38 Impression: 63 year old male with poor bowel movement. Plan: constipation, depression -- Labs -- Venous Blood Gas -- Senokot -- Fleet Mineral Oil Enema -- Zofran -- Golytely -- Reassess and disposition Prior Visits: Notes and results from previous visits were reviewed. Patient was last seen in the emergency department on 02/10/2018 for constipation and poor bowel movement. Patient was discharged. Progress Notes: 02/12/18 14:52 Patient refusing to have Abd/Pelvis CT performed. pt is feeling improved pt is awaiting results after discussing with patient regarding the benefits of CT, pt understood and agrees with CT pt will now have CT of abd/pelvis 02/12/18 15:[address] Brown, who has been made aware of patient's condition. Dr. Brown states patient has become difficult to treat and manage due to his poor compliance behavior. Patient has been treated for on and off constipation in the past, and patient had loose bowel movement during this past 1month. Dr. Brown agrees with current emergency department management, including Abd/Pelvis CT. However if results display to be negative of any obstruction or surgical pathology, Dr Brown believe patient is stable enough to be discharged home with continued outpt f/u as directed; would like to see patient tomorrow in his office. 02/12/18 16:01 pt moved his bowels, pt felt improved pt states pain is nearly gone pt is made aware of his medical results pt is encouraged fluids pt is encouraged staying on his medication regiment and to heat healthy foods pt is encouraged walking as a form of exercise pt will f/u as directed pt will be discharged home prior to discharging patient, pt's spouse states patient has been stating he wants to hurt himself, + suicidal statements were made on numerous occasions; pt states + depressing; pt currently states he has no such ideations/feelings pt express desire to speak to a crisis counselor paging [facility] crisis counselor 02/12/18 16:30 PES currently in another hospital evaluating a patient. Will arrive here in the ER soon to evaluate patient. 02/12/18 17:25 PES crisis counselor is at bedside, spoke to patient, pt states he just wants referral for out reach and for outpatient eval for depression; pt will be discharged home pt is made aware of his elevated BLOOD pressure is reminded to take his medications pt expressed understanding pt denied any abdominal pain pt remained comfortable pt is reminded to continue his bowel regiments pt is encouraged fluid hydration pt will f/u as directed pt will be discharged home Re-evaluation Time: 16:01 Reassessment Condition: Improving,but remains with symptoms - Lab Interpretations Lab Results: 02/12/18 12:55 02/12/18 12:55 Lab Results 02/12/18 12:55: Sodium 147, Chloride 107, Potassium 4.0, Carbon Dioxide 27, Anion Gap 17, BUN 24 H, Creatinine 1.6 H, Est GFR ( Amer) 53, Est GFR ( Non-Af Amer) 44, Random Glucose 99, Calcium 8.9, Magnesium 2.0, Total Bilirubin 1.9 H, AST 22, ALT 25, Alkaline Phosphatase 74, Total Protein 7.6, Albumin 4.1, Globulin 3.6, Albumin/Globulin Ratio 1.1, Lipase 85 02/12/18 12:55: pO2 35, VBG pH 7.31 L, VBG pCO2 54.0, VBG HCO3 27.2, VBG Total CO2 28.9 H, VBG O2 Sat (Calc) 71.1 H, VBG Base Excess 0.0, VBG Potassium 3.8, Sodium 141.0, Chloride 109.0 H, Glucose 98, Lactate 0.9, FiO2 21.0, Venous Blood Potassium 3.8 02/12/18 12:55: WBC 7.4 D, RBC 4.45, Hgb 13.5 L, Hct 41.5 L, MCV 93.3, MCH 30.3 , MCHC 32.5, RDW 14.8 H, Plt Count 162, MPV 9.2, Gran % 82.1 H, Lymph % (Auto) 12.4 L, [place] % (Auto) 4.4, Eos % (Auto) 0.8 L, Baso % (Auto) 0.3, Gran # 6.09, Lymph # (Auto) 0.9 L, [place] # (Auto) 0.3, Eos # (Auto) 0.1, Baso # (Auto) 0.02 I have reviewed the lab results: Yes Interpretation: Abnormal lab values (elevated BUN/creat (chronic)) - RAD Interpretation Narrative RAD Interpretations (Text): Extremity Ultrasound IMPRESSION: No sonographic evidence for deep venous thrombosis in the visualized segments of both lower extremities. Very limited study. Dictator: Oscar Berkowitz MD 02/10/2018 Abdominal X-Ray FINDINGS: BOWEL: Mildly dilated loops of small bowel with air fluid levels identified. Similar finding seen in colon. Bariatric paraphernalia again identified. BONES: Normal. OTHER FINDINGS: 15 mm right upper quadrant calculus known to be within the gallbladder on prior cross- sectional imaging studies. IMPRESSION: No evidence of mechanical obstruction. Additional benign and/or incidental findings described above. Dictator: David Chapa MD 02/12/2018 15:37 PROCEDURE: CT Abdomen and Pelvis without intravenous contrast HISTORY: abd pain COMPARISON: 10/27/2016 TECHNIQUE: Without contrast.. Contrast dose: Radiation dose: Total exam DLP = 1635 mGy-cm. This CT exam was performed using one or more of the following dose reduction techniques: Automated exposure control, adjustment of the mA and/or kV according to patient size, and/or use of iterative reconstruction technique. FINDINGS: LOWER THORAX: Small pleural effusions LIVER: Unremarkable. No gross lesion or ductal dilatation. GALLBLADDER AND BILE DUCTS: Gallstone PANCREAS: Unremarkable. No gross lesion or ductal dilatation. SPLEEN: Unremarkable. ADRENALS: Unremarkable. No mass. KIDNEYS AND URETERS: Unremarkable. No hydronephrosis. No solid mass. 5 cm simple cyst in the lower pole of the right kidney VASCULATURE: Unremarkable. No aortic aneurysm. BOWEL: Unremarkable. No obstruction. No gross mural thickening. There is a lap band around the proximal stomach APPENDIX: Unremarkable. Normal appendix. PERITONEUM: Unremarkable. No free fluid. No free air. LYMPH NODES: Unremarkable. No enlarged lymph nodes. BLADDER: Unremarkable. REPRODUCTIVE: Unremarkable. BONES: No acute fracture. OTHER FINDINGS: There is severe atrophy and fatty replacement of the rectus muscles bilaterally IMPRESSION: No acute intra-abdominal findings Radiology Orders: 02/12/18 14:55 ABD & PELVIS W/O PO OR IV CONT [CT] Stat Senior Assistant Manager: Radiologist - Medication Orders Current Medication Orders: Discontinued Medications Mineral Oil (Fleet Mineral Oil Enema) 135 ml RC ONCE ONE Stop: 02/12/18 12:39 Last Admin: 02/12/18 12:59 Dose: 135 ml Ondansetron HCl (Zofran Inj) 4 mg IVP STAT STA Stop: 02/12/18 12:39 Last Admin: 02/12/18 12:59 Dose: 4 mg IVP Administration Document 02/12/18 12:59 SRE (Rec: 02/12/18 12:59 SRE [id number]) Charges for Administration # of IVP Administrations 1 Polyethylene Glycol/Electrolytes (Golytely) 4,000 ml PO ONCE ONE Stop: 02/12/18 12:40 Senna/Docusate Sodium (Senokot S 50 Mg-8.6 Mg) 1 tab PO ONCE ONE Stop: 02/12/18 12:40 Last Admin: 02/12/18 12:59 Dose: 1 tab - Scribe Statement The provider has reviewed the documentation as recorded by the Geno Hagen Provider Scribe Attestation: All medical record entries made by the Elainaibvilla were at my direction and personally dictated by me. I have reviewed the chart and agree that the record accurately reflects my personal performance of the history, physical exam, medical decision making, and the department course for this patient. I have also personally directed, reviewed, and agree with the discharge instructions and disposition. Disposition/Present on Arrival - Present on Arrival Any Indicators Present on Arrival: No History of DVT/PE: No History of Uncontrolled Diabetes: Yes Urinary Catheter: No History of Decub. Ulcer: No History Surgical Site Infection Following: None - Disposition Have Diagnosis and Disposition been Completed?: Yes Diagnosis: Constipation, Leg edema, Depression, HTN (hypertension) Disposition: HOME/ ROUTINE Disposition Time: 17:27 Patient Plan: Discharge Condition: STABLE Discharge Instructions (ExitCare): Constipation in Adults, High Blood Pressure in Adults, Depression, Adult (DC), Screening for Depression, Suicide Prevention Print Language: CROATIAN Additional Instructions: Make sure to see your doctor in 1-2 days YOU NEED TO SEE DR BROWN tomorrow DRINK PLENTY OF FLUIDS take your medications as prescribed encourage you to eat healthy encourage you to take your medications RETURN TO ED IF worse pain, cant breath, persistent vomiting, high fever >101- 102 for hours, altered behavior, slurr speech, facial changes, focal weakness ( arm/leg or both), unable to urinate, heavy/persistent bleeding, passing out, chest pain, or other medical emergencies Prescriptions: Mineral Oil [Fleet Mineral Oil Enema 135 Ml] 133 ml RC DAILY PRN #5 bottle PRN Reason: Constipation Ondansetron ODT [Zofran ODT] 4 mg PO TID PRN #10 odt PRN Reason: Nausea/Vomiting Polyethylene Glycol 3350 [Miralax] 17 gm PO DAILY PRN 7 Days ml PRN Reason: Constipation Sennosides/Docusate Sodium [Senna-S Tablet] 1 each PO BID PRN #20 tablet PRN Reason: Constipation Referrals: Rashad Brown MD [Primary Care Provider] - Follow up with primary Griffin Somers MD [Staff Provider] - Follow up with primary Forms: [employer] (Namibian)
[2018-02-12 13:11] LABS: BASO # 0.02 K/mm3 (0.0-2.0); BASO % 0.3 % (0.0-3.0); EOS # 0.1 (0.0-0.7); EOS % 0.8 % (1.5-5.0); GRAN # 6.09 (1.4-6.5); GRAN % 82.1 % (50.0-68.0); HEMOGLOBIN 13.5 g/dL (14.0-18.0); LYMPH # 0.9 (1.2-3.4); LYMPH % 12.4 % (22.0-35.0); MEAN CELL VOLUME 93.3 fl (80.0-105.0); MEAN CORPUSCULAR HEMOGLOBIN 30.3 pg (25.0-35.0); MEAN CORPUSCULAR HGB CONC 32.5 g/dl (31.0-37.0); MEAN PLATELET VOLUME 9.2 fl (7.0-11.0); MONO # 0.3 (0.1-0.6); MONO % 4.4 % (1.0-6.0); RBC 4.45 10^6/uL (3.5-6.1); RED CELL DISTRIBUTION WIDTH 14.8 % (11.5-14.5); WHITE BLOOD COUNT 7.4 10^3/ul (4.5-11.0)
[2018-02-12 13:12] LABS: VENOUS BLOOD GAS PO2 35 mm/Hg (30-55); VENOUS BLOOD PH 7.31 (7.32-7.43)
[2018-02-12 13:36] LABS: ALB/GLOB RATIO 1.1 (1.1-1.8); ALBUMIN 4.1 g/dL (3.0-4.8); CALCIUM 8.9 mg/dL (8.4-10.5)
--- NOTE | 2018-02-12 15:39 | CT ---
PROCEDURE: CT Abdomen and Pelvis without intravenous contrast HISTORY: abd pain COMPARISON: 10/27/2016 TECHNIQUE: Without contrast.. Contrast dose: Radiation dose: Total exam DLP = 1635 mGy-cm. This CT exam was performed using one or more of the following dose reduction techniques: Automated exposure control, adjustment of the mA and/or kV according to patient size, and/or use of iterative reconstruction technique. FINDINGS: LOWER THORAX: Small pleural effusions LIVER: Unremarkable. No gross lesion or ductal dilatation. GALLBLADDER AND BILE DUCTS: Gallstone PANCREAS: Unremarkable. No gross lesion or ductal dilatation. SPLEEN: Unremarkable. ADRENALS: Unremarkable. No mass. KIDNEYS AND URETERS: Unremarkable. No hydronephrosis. No solid mass. 5 cm simple cyst in the lower pole of the right kidney VASCULATURE: Unremarkable. No aortic aneurysm. BOWEL: Unremarkable. No obstruction. No gross mural thickening. There is a lap band around the proximal stomach APPENDIX: Unremarkable. Normal appendix. PERITONEUM: Unremarkable. No free fluid. No free air. LYMPH NODES: Unremarkable. No enlarged lymph nodes. BLADDER: Unremarkable. REPRODUCTIVE: Unremarkable. BONES: No acute fracture. OTHER FINDINGS: There is severe atrophy and fatty replacement of the rectus muscles bilaterally IMPRESSION: No acute intra-abdominal findings
[2018-02-12 17:59] VITALS: BP 169/102; PULSE 89; RESP 18; TEMP 98; O2SAT 96
--- NOTE | 2018-02-13 12:27 | CARD ---
APPROVED REPORT EKG Measurement Heart [id number] <Conclusion> Atrial fibrillation with rapid ventricular response Septal PA, old NSSTW changes Prolonged QTc No change
== END 2018-02-12 18:09 | disposition home or self-care (01) ==
LOC: ED 11:38
DX: I10 Essential (primary) hypertension (principal); R60.0 Localized edema; K59.00 Constipation, unspecified; F32.9 Major depressive disorder, single episode, unspecified
CPT/HCPCS: 74176; 80053; 82803; 83690; 83735; 85025; 93005; 96374; 99284; J2405

== ENCOUNTER 2018-02-20 16:54 | Inpatient (IN) | payer MEDICARE ==
[2018-02-20 16:54] VITALS: PULSE 58
[2018-02-20] MEDS ORDERED: Sodium Chloride 0.9% 1,000 ML IV SCH (17:00)
--- NOTE | 2018-02-20 17:01 | ED PDOC ---
Arrival/HPI - General Time Seen by Provider: 02/20/18 16:56 Historian: Patient - Critical Care Critical Care Minutes: 60 minutes - History of Present Illness Narrative History of Present Illness (Text): 02/20/18 16:58 63 year old male, with unknown past medical history, who presents to the emergency department for a stroke. Upon arrival in emergency department, patient showed right sided deficits that include severe right hand paresis, difficulty speaking, and right sided facial droop. Blood sugar is normal. Limited HPI due to patient's condition. Time/Duration: Prior to Arrival Symptom Onset: Sudden Symptom Course: Unchanged Activities at Onset: Light Context: Home Past Medical History - Provider Review Nursing Documentation Reviewed: Yes - Past History Past History: No Previous - Infectious Disease Hx of Infectious Diseases: None - Tetanus Immunization Tetanus Immunization: Unknown - Cardiac Hx Cardiac Disorders: Yes Hx Atrial Fibrillation: Yes Hx Congestive Heart Failure: Yes Hx Hypertension: Yes - Pulmonary Hx Respiratory Disorders: Yes Other/Comment: CHF - Neurological Hx Neurological Disorder: No - HEENT Hx HEENT Disorder: No - Renal Hx Renal Disorder: Yes - Endocrine/Metabolic Hx Endocrine Disorders: No - Hematological/Oncological Hx Blood Disorders: No - Integumentary Hx Dermatological Disorder: Yes (CELLULITIS TO LOWER EXTREMITY) - Musculoskeletal/Rheumatological Hx Musculoskeletal Disorders: Yes Hx Back Pain: Yes Hx Falls: Yes - Gastrointestinal Hx Gastrointestinal Disorders: Yes Hx Constipation: Yes - Genitourinary/Gynecological Hx Reproductive Disorders: No - Psychiatric Hx Psychophysiologic Disorder: Yes Hx Depression: Yes Hx Substance Use: Yes - Surgical History Hx Gastric Bypass Surgery: Yes (Lap band) Hx Orthopedic Surgery: Yes - Anesthesia Hx Anesthesia: Yes Hx Anesthesia Reactions: No Hx Malignant Hyperthermia: No - Suicidal Assessment Feels Threatened In Home Enviroment: No Family/Social History - Physician Review Nursing Documentation Reviewed: Yes Family/Social History: Unknown Family HX Smoking Status: Never Smoked Hx Alcohol Use: Yes Hx Substance Use: Yes Hx Substance Use Treatment: No Allergies/Home Meds Allergies/Adverse Reactions: Allergies No Known Allergies Allergy (Verified 12/31/16 13:16) Home Medications: Home Meds Medication Instructions Recorded Confirmed Furosemide [Lasix] 80 mg PO BID 02/12/18 02/20/18 Linaclotide [Linzess] 1 cap PO DAILY 02/12/18 02/20/18 Multivit-Min/FA/Lycopen/Lutein 1 tab PO DAILY 02/12/18 02/20/18 [Centrum Silver Men Tablet] Rosuvastatin Calcium [Crestor] 1 tab PO DAILY 02/12/18 02/20/18 Doxycycline Hyclate [Doryx] 100 mg PO BID 02/20/18 02/20/18 Linezolid [Zyvox] 600 mg PO BID 02/20/18 02/20/18 Physical Exam Vital Signs Reviewed: Yes Vital Signs Temp Pulse Resp BP Pulse Ox 02/20/18 20:30 92 H 18 136/72 99 02/20/18 20:18 82 16 131/80 100 02/20/18 20:03 84 18 141/66 100 02/20/18 19:45 98.6 F 84 18 164/81 H 100 02/20/18 19:29 82 18 154/84 H 99 02/20/18 19:28 88 18 167/75 H 99 02/20/18 19:04 83 18 159/113 H 98 02/20/18 18:50 88 16 163/103 H 96 02/20/18 18:45 90 18 155/108 H 96 02/20/18 18:40 90 18 158/101 H 96 02/20/18 18:29 93 H 18 157/92 H 98 02/20/18 17:33 87 20 153/117 H 98 02/20/18 16:59 88 18 181/114 H 97 Temperature: Afebrile Blood Pressure: Hypertensive Pulse: Regular Respiratory Rate: Normal Appearance: Positive for: Well-Appearing, Non-Toxic, Comfortable Pain Distress: None Mental Status: Positive for: Alert and Oriented X 3 Medical Decision Making ED Course and Treatment: 02/20/18 17:11 Impression: 63 year old female presents to the emergency department for stroke. Plan: -- CTA Head/Neck -- CT Head -- EKG -- Labs -- Troponin -- Chest X-ray -- Sodium Chloride -- Reassess and disposition Progress Notes: 02/20/18 18:14 Head/ Neck CTA reviewed, shows: INTERNAL CEREBRAL ARTERIES: Atherosclerosis is identified at the bilateral cavernous internal carotid artery segments and [id number] stenoses are suggested variably bilaterally. The skull base, petrous, and supraclinoid segments are otherwise bilaterally widely patent. ANTERIOR CEREBRAL ARTERIES: Unremarkable. A1 and A2 segments are widely patent. Smaller distal branches unremarkable, as visualized. MIDDLE CEREBRAL ARTERIES: Unremarkable. M1 and M2 segments are widely patent. Perisylvian branches grossly symmetric. POSTERIOR CIRCULATION: Basilar Artery: Lower limits of normal normal size basilar artery, nevertheless patent without focal stenosis. Distal Vertebral Arteries: Hypoplastic distal right vertebral artery is identified with normal size left vertebral artery. Posterior Cerebral Arteries: Unremarkable. Posterior Inferior Cerebellar Arteries: Unremarkable. NECK CTA: Common Carotid arteries: The bilateral common carotid appear widely patent from their origins to their bifurcations with no significant stenosis appreciated. Trace bilateral carotid bulbar atherosclerosis identified. No evidence to suggest common carotid artery dissection. Internal Carotid arteries: No significant stenosis is appreciated throughout the cervical internal carotid artery segments bilaterally and there is no evidence of dissection either. External Carotid arteries: Appear unremarkable bilaterally. Vertebral arteries: The bilateral vertebral arteries appear normal in caliber from their origins to their junction with the basilar artery. No significant stenosis or definite pattern of dissection. ANEURYSM/ VASCULAR MALFORMATIONS: None. OTHER FINDINGS: None. IMPRESSION: [id number]-oe-imwiyrfa bilateral cavernous ICA stenoses. Nevertheless, the [place] arterial anatomy remains patent. Lower limits normal caliber basilar artery. Hypoplastic distal right vertebral artery. Trace atherosclerotic changes bilateral carotid bulb regions with widely patent bilateral common and internal carotid arteries identified in the neck. Head CT reviewed, shows: HEMORRHAGE: No intracranial hemorrhage. BRAIN: Diffuse cerebral atrophy chronic microangiopathy are reiterated. There is no interval mass effect. Chronic microangiopathy remains heterogeneous with underlying small chronic infarcts reiterated not only at periventricular but also centrum semiovale white-matter bilaterally as well as the harshad. The level of detail is greater on the current study as the patient apparently was sedated prior to getting the current CT. The number of apparent small sub cm infarcts is greater than those shown previously, possibly due to conscious sedation provided for better imaging. Accordingly, interval small sub cm acute subacute infarcts are difficult to exclude at the medial bilateral cerebral hemispheres. No definite lobar brain infarction is appreciated. A chronic lobar infarct is identified in the right frontal lobe once again. There are no suspicious cerebellar findings. VENTRICLES: Unremarkable. No hydrocephalus. CALVARIUM: Unremarkable. PARANASAL SINUSES: Unremarkable as visualized. No significant inflammatory changes. MASTOID AIR CELLS: Unremarkable as visualized. No inflammatory changes. OTHER FINDINGS: None. IMPRESSION: 1. No definite interval acute or subacute lobar infarction identified. Follow- up CT or MRI recommended nevertheless. 2. Multifocal chronic lacunes are identified the bilateral basal ganglia, periventricular white matter and centrum semiovale regions in better detail on the current exam compromised is a function of conscious sedation. There also better seen in the harshad. Interval subacute or even acute small infarction not completely excluded in the same distribution of the medial bilateral cerebral hemispheres. 02/20/18 18:43 Chest X-ray reviewed, shows: LUNGS: No active pulmonary disease. PLEURA: No significant pleural effusion identified, no pneumothorax apparent. CARDIOVASCULAR: Massive cardiomegaly without acute cardiopulmonary abnormality. OSSEOUS STRUCTURES: No significant abnormalities. VISUALIZED UPPER ABDOMEN: Normal. OTHER FINDINGS: None. IMPRESSION: Cardiomegaly. No evidence of acute, significant cardiovascular disease. No active pulmonary disease 02/20/18 18:51 TPA administered at 18:31. Neurologist discussed risks and benefits, written consent was received. Blood Pressure controlled. Patient admitted to ICU. 02/20/18 19:39 EKG reviewed, shows Afib at 85 bpm. Non-specific T wave changes at V3 avf, V6. Non specific ST wave changes with Afib. Reassessment Condition: Re-examined, Unchanged - Lab Interpretations Lab Results: 02/20/18 16:55 02/20/18 16:55 Lab Results 02/20/18 17:49: PT 17.3 H, INR 1.50 H, APTT 31.6 02/20/18 17:40: Blood Type A POSITIVE, Antibody Screen Negative, BBK History Checked Patient has bt 02/20/18 16:55: Sodium 144, Potassium 3.6, Chloride 107, Carbon Dioxide 25, Anion Gap 16, BUN 21, Creatinine 1.7 H, Est GFR ( Amer) 50, Est GFR (Non- Af Amer) 41, Random Glucose 127 H, Calcium 8.8, Total Bilirubin 1.5 H, AST 22, ALT 25, Alkaline Phosphatase 70, Troponin I 0.05, NT-Pro-B Natriuret Pep 3110 H , Total Protein 7.5, Albumin 4.1, Globulin 3.4, Albumin/Globulin Ratio 1.2, Triglycerides 115, Cholesterol 107 L, LDL Cholesterol Direct 47, HDL Cholesterol 36 02/20/18 16:55: WBC 7.7, RBC 4.45, Hgb 13.4 L, Hct 41.0 L, MCV 92.1, MCH 30.1, MCHC 32.7, RDW 14.9 H, Plt Count 181, MPV 9.6, Gran % 76.4 H, Lymph % (Auto) 16.9 L, [place] % (Auto) 5.2, Eos % (Auto) 1.4 L, Baso % (Auto) 0.1, Gran # 5.85, Lymph # (Auto) 1.3, [place] # (Auto) 0.4, Eos # (Auto) 0.1, Baso # (Auto) 0.01 I have reviewed the lab results: Yes - RAD Interpretation Radiology Orders: 02/20/18 16:58 CTA HEAD/NECK CODE STROKE [CT] Stat HEAD W/O (CODE STROKE) [CT] Stat CHEST PORTABLE [RAD] Stat - EKG Interpretation Interpreted by ED Physician: Yes (afib) - Medication Orders Current Medication Orders: Sodium Chloride (Sodium Chloride 0.9%) 1,000 mls @ 100 mls/hr IV .Q10H SACHIN Last Admin: 02/20/18 19:35 Dose: 100 mls/hr eMAR Start Stop Document 02/20/18 19:35 FELIPE (Rec: 02/20/18 19:36 [id number]) Intravenous Solution Start Date 02/20/18 Start Time 19:36 Nicardipine HCl (Cardene Iv Premix) 20 mg in 200 mls @ 50 mls/hr IV .Q4H PRN; Protocol; 5 MG/HR PRN Reason: TITRATE PER MD ORDER Linezolid (Zyvox 600mg/300ml D5w) 600 mg in 300 mls @ 200 mls/hr IVPB Q12 SACHIN PRN Reason: Protocol Stop: 02/20/18 23:29 Discontinued Medications Alteplase, Recombinant (Activase 100 Mg Inj) 9 mg IV ONCE ONE Stop: 02/20/18 18:31 Last Admin: 02/20/18 18:31 Dose: 9 mg eMAR Start Stop Document 02/20/18 18:31 [facility] (Rec: 02/20/18 18:38 [facility] [id number]) Intravenous Solution Start Date 02/20/18 Start Time 18:31 End Date 02/20/18 End time 18:33 Total Infusion Time 2 Nicardipine HCl (Cardene Iv Premix) 20 mg in 200 mls @ 50 mls/hr IV .Q4H PRN; Protocol; 5 MG/HR PRN Reason: TITRATE PER MD ORDER Last Admin: 02/20/18 17:33 Dose: 25 mls/hr Comments: Dr. Jenkins order eMAR Start Stop Document 02/20/18 17:33 [facility] (Rec: 02/20/18 17:33 [facility] [id number]) Intravenous Solution Start Date 02/20/18 Start Time 17:33 MAR CARDIAC VS Document 02/20/18 17:33 [facility] (Rec: 02/20/18 17:33 [facility] [id number]) Vital Signs Pulse Rate (60-90) 87 EKG Rhythm Sinus Tachycardia Blood Pressure (100/60-150/90) 153/117 Respiratory Rate (12-24) 20 O2 Sat by Pulse Oximetry (95-100) 98 Alteplase, Recombinant 81 mg/ (Sterile Water) 81 mls @ 81 mls/hr IV ONCE ONE PRN Reason: Protocol Stop: 02/20/18 19:14 Last Admin: 02/20/18 18:35 Dose: 81 mls/hr Midazolam HCl (Versed Inj) 2 mg IVP STAT STA Stop: 02/20/18 17:10 Last Admin: 02/20/18 17:11 Dose: 2 mg IVP Administration Document 02/20/18 17:11 [facility] (Rec: 02/20/18 17:34 [facility] [id number]) Charges for Administration # of IVP Administrations 1 - Scribe Statement The provider has reviewed the documentation as recorded by the Scribe Nataliia Shannno All medical record entries made by the Scribe were at my direction and personally dictated by me. I have reviewed the chart and agree that the record accurately reflects my personal performance of the history, physical exam, medical decision making, and the department course for this patient. I have also personally directed, reviewed, and agree with the discharge instructions and disposition. Disposition/Present on Arrival - Present on Arrival Any Indicators Present on Arrival: Yes History of DVT/PE: No History of Uncontrolled Diabetes: Yes Urinary Catheter: No History Surgical Site Infection Following: None - Disposition Have Diagnosis and Disposition been Completed?: Yes Diagnosis: CVA (cerebral vascular accident) Disposition: HOSPITALIZED Disposition Time: 21:18 Patient Plan: ICU Condition: CRITICAL NIHSS Stroke Scale - Date/Time Evaluation Performed Date Performed: 02/20/18 Time Performed: 16:35 - How Severe is the Stroke Level of Consciousness: 1=Drowsy LOC to Questions: 2=Neither correct LOC to commands: 0=Obeys both correctly Best Gaze: 1=Partial gaze palsy Visual: 2=Complete hemianopia Facial: 3=Complete unilateral paralysis Motor Arm - Left: 0=No drift Motor Leg - Left: 3=No effort against gravity (falls immediately) Motor Leg - Right: 2=Falls before 5 sec Limb Ataxia: 0=Absent Sensory: 0=Normal Best Language: 2=Severe aphasia Dysarthia: 1=Mild to moderate slurring Extinction & Inattention (Neglect): 0=Normal, no object
[2018-02-20] MEDS ORDERED: Midazolam 2 MG/2 ML VIAL IVP STA (17:09)
[2018-02-20] MEDS ORDERED: Nicardipine 20 MG/200 ML 20 MG/200 ML BAG IV PRN ×2 (17:10→20:29)
[2018-02-20 17:11] LABS: BASO # 0.01 K/mm3 (0.0-2.0); BASO % 0.1 % (0.0-3.0); EOS # 0.1 (0.0-0.7); EOS % 1.4 % (1.5-5.0); GRAN # 5.85 (1.4-6.5); GRAN % 76.4 % (50.0-68.0); HEMOGLOBIN 13.4 g/dL (14.0-18.0); LYMPH # 1.3 (1.2-3.4); LYMPH % 16.9 % (22.0-35.0); MEAN CELL VOLUME 92.1 fl (80.0-105.0); MEAN CORPUSCULAR HEMOGLOBIN 30.1 pg (25.0-35.0); MEAN CORPUSCULAR HGB CONC 32.7 g/dl (31.0-37.0); MEAN PLATELET VOLUME 9.6 fl (7.0-11.0); MONO # 0.4 (0.1-0.6); MONO % 5.2 % (1.0-6.0); RBC 4.45 10^6/uL (3.5-6.1); RED CELL DISTRIBUTION WIDTH 14.9 % (11.5-14.5); WHITE BLOOD COUNT 7.7 10^3/ul (4.5-11.0)
[2018-02-20 17:18] LABS: ALB/GLOB RATIO 1.2 (1.1-1.8); ALBUMIN 4.1 g/dL (3.0-4.8); CALCIUM 8.8 mg/dL (8.4-10.5)
[2018-02-20 17:32] LABS: TROPONIN I 0.05 ng/mL
--- NOTE | 2018-02-20 17:34 | CT ---
PROCEDURE: CT HEAD WITHOUT CONTRAST. HISTORY: Code Stroke COMPARISON: Noncontrast head CT 03/10/2016. TECHNIQUE: Axial computed tomography images were obtained through the head/brain without intravenous contrast. Radiation dose: Total exam DLP = 1996.54 mGy-cm. This CT exam was performed using one or more of the following dose reduction techniques: Automated exposure control, adjustment of the mA and/or kV according to patient size, and/or use of iterative reconstruction technique. FINDINGS: HEMORRHAGE: No intracranial hemorrhage. BRAIN: Diffuse cerebral atrophy chronic microangiopathy are reiterated. There is no interval mass effect. Chronic microangiopathy remains heterogeneous with underlying small chronic infarcts reiterated not only at periventricular but also centrum semiovale white-matter bilaterally as well as the harshad. The level of detail is greater on the current study as the patient apparently was sedated prior to getting the current CT. The number of apparent small sub cm infarcts is greater than those shown previously, possibly due to conscious sedation provided for better imaging. Accordingly, interval small sub cm acute subacute infarcts are difficult to exclude at the medial bilateral cerebral hemispheres. No definite lobar brain infarction is appreciated. A chronic lobar infarct is identified in the right frontal lobe once again. There are no suspicious cerebellar findings. VENTRICLES: Unremarkable. No hydrocephalus. CALVARIUM: Unremarkable. PARANASAL SINUSES: Unremarkable as visualized. No significant inflammatory changes. MASTOID AIR CELLS: Unremarkable as visualized. No inflammatory changes. OTHER FINDINGS: None. IMPRESSION: 1. No definite interval acute or subacute lobar infarction identified. Follow-up CT or MRI recommended nevertheless. 2. Multifocal chronic lacunes are identified the bilateral basal ganglia, periventricular white matter and centrum semiovale regions in better detail on the current exam compromised is a function of conscious sedation. There also better seen in the harshad. Interval subacute or even acute small infarction not completely excluded in the same distribution of the medial bilateral cerebral hemispheres. Findings discussed with Dr. Jenkins 02/20/2018 5:25 p.m. with written down and read back verification.
[2018-02-20 18:01] LABS: INR 1.5 (0.93-1.08); PARTIAL THROMBOPLASTIN TIME 31.6 Seconds (25.1-36.5); PROTHROMBIN TIME 17.3 SECONDS (9.4-12.5)
--- NOTE | 2018-02-20 18:10 | CT ---
PROCEDURE: CT Angiography of the Brain and Neck. HISTORY: rt sided cva COMPARISON: None available. TECHNIQUE: CT angiography of the intracranial and neck arteries was performed. Coronal and sagittal maximum intensity projection reformatted images were generated. Contrast Dose: Omnipaque 350, 140 cc Radiation dose:Total exam DLP = 788.92 mGy-cm. This CT exam was performed using one or more of the following dose reduction techniques: Automated exposure control, adjustment of the mA and/or kV according to patient size, and/or use of iterative reconstruction technique. FINDINGS: INTERNAL CEREBRAL ARTERIES: Atherosclerosis is identified at the bilateral cavernous internal carotid artery segments and [id number] stenoses are suggested variably bilaterally. The skull base, petrous, and supraclinoid segments are otherwise bilaterally widely patent. ANTERIOR CEREBRAL ARTERIES: Unremarkable. A1 and A2 segments are widely patent. Smaller distal branches unremarkable, as visualized. MIDDLE CEREBRAL ARTERIES: Unremarkable. M1 and M2 segments are widely patent. Perisylvian branches grossly symmetric. POSTERIOR CIRCULATION: Basilar Artery: Lower limits of normal normal size basilar artery, nevertheless patent without focal stenosis. Distal Vertebral Arteries: Hypoplastic distal right vertebral artery is identified with normal size left vertebral artery. Posterior Cerebral Arteries: Unremarkable. Posterior Inferior Cerebellar Arteries: Unremarkable. NECK CTA: Common Carotid arteries: The bilateral common carotid appear widely patent from their origins to their bifurcations with no significant stenosis appreciated. Trace bilateral carotid bulbar atherosclerosis identified. No evidence to suggest common carotid artery dissection. Internal Carotid arteries: No significant stenosis is appreciated throughout the cervical internal carotid artery segments bilaterally and there is no evidence of dissection either. External Carotid arteries: Appear unremarkable bilaterally. Vertebral arteries: The bilateral vertebral arteries appear normal in caliber from their origins to their junction with the basilar artery. No significant stenosis or definite pattern of dissection. ANEURYSM/ VASCULAR MALFORMATIONS: None. OTHER FINDINGS: None. IMPRESSION: [id number] bilateral cavernous ICA stenoses. Nevertheless, the [place] arterial anatomy remains patent. Lower limits normal caliber basilar artery. Hypoplastic distal right vertebral artery. Trace atherosclerotic changes bilateral carotid bulb regions with widely patent bilateral common and internal carotid arteries identified in the neck. Findings discussed with Dr. Jenkins 02/20/2018 6 o'clock p.m..
[2018-02-20] MEDS ORDERED: ALTEPLASE IV ONE (18:15)
[2018-02-20] MEDS ORDERED: WATER FOR INJECTION IV ONE (18:15)
--- NOTE | 2018-02-20 18:37 | RAD ---
HISTORY: Code Stroke COMPARISON: 12/31/2016 FINDINGS: LUNGS: No active pulmonary disease. PLEURA: No significant pleural effusion identified, no pneumothorax apparent. CARDIOVASCULAR: Massive cardiomegaly without acute cardiopulmonary abnormality. OSSEOUS STRUCTURES: No significant abnormalities. VISUALIZED UPPER ABDOMEN: Normal. OTHER FINDINGS: None. IMPRESSION: Cardiomegaly. No evidence of acute, significant cardiovascular disease. No active pulmonary disease
--- NOTE | 2018-02-20 20:40 | CP.PCM.CON ---
<Bubba Church - Last Filed: 02/20/18 21:23> History of Present Illness - History of Present Illness History of Present Illness: 63 year old male with past medical history of asthma, morbid obesity, CHF, A-fib , HTN, renal insufficiency, and chronic lymphedema presents to the hospital for acute right sided weakness. Patient is unable to speak at this time, history is provided from and son at bedside. Patient went to the bathroom at 1630 and when he came out he collapsed. He was unable to move his right side or speak. Patient's family immediately called the ambulance. Patient was brought to the ED where CODE STROKE was called. Head/Neck CTA demonstrated Mild to moderate b/ l cavernous stenoses of the ICA, but otherwise patent. Head CT demonstrated multifocal chronic lacunes are identified the bilateral basal ganglia and Interval subacute or even acute small infarction not completely excluded in the same distribution of the medial bilateral cerebral hemispheres. also states patient had mild shortness of breath and chest pain which has now resolved. Patient is able to follow commands and give a thumbs up with left hand. Patient has history of noncompliance with medications. PMH: asthma, morbid obesity, CHF, A-fib, HTN, renal insufficiency, and chronic lymphedema Surgical hx: Lap band, Left shoulder surgery Social Hx: Former alcohol and substance abuse. Denies tobacco use Allergies: NKDA Medications: Reviewed, as per MAR Review of Systems - Review of Systems Review of Systems: ROS not able to be obtained due to acute stroke Past Patient History - Infectious Disease Hx of Infectious Diseases: None - Tetanus Immunizations Tetanus Immunization: Unknown - Past Social History Smoking Status: Never Smoked - CARDIAC Hx Cardiac Disorders: Yes Hx Atrial Fibrillation: Yes Hx Congestive Heart Failure: Yes Hx Hypertension: Yes - PULMONARY Hx Respiratory Disorders: Yes Other/Comment: CHF - NEUROLOGICAL Hx Neurological Disorder: No - HEENT Hx HEENT Problems: No - RENAL Hx Chronic Kidney Disease: Yes - ENDOCRINE/METABOLIC Hx Endocrine Disorders: No - HEMATOLOGICAL/ONCOLOGICAL Hx Blood Disorders: No - INTEGUMENTARY Hx Dermatological Problems: Yes (CELLULITIS TO LOWER EXTREMITY) - MUSCULOSKELETAL/RHEUMATOLOGICAL Hx Musculoskeletal Disorders: Yes Hx Back Pain: Yes Hx Falls: Yes - GASTROINTESTINAL Hx Gastrointestinal Disorders: Yes Hx Constipation: Yes - GENITOURINARY/GYNECOLOGICAL Hx Reproductive Disorders: No - PSYCHIATRIC Hx Psychophysiologic Disorder: Yes Hx Depression: Yes Hx Substance Use: Yes - SURGICAL HISTORY Hx Gastric Bypass Surgery: Yes (Lap band) Hx Orthopedic Surgery: Yes - ANESTHESIA Hx Anesthesia: Yes Hx Anesthesia Reactions: No Hx Malignant Hyperthermia: No Meds Allergies/Adverse Reactions: Allergies Allergy/AdvReac Type Severity Reaction Status Date / Time No Known Allergies Allergy Verified 12/31/16 13:16 - Medications Medications: Current Medications Sodium Chloride (Sodium Chloride 0.9%) 1,000 mls @ 100 mls/hr IV .Q10H SACHIN Last Admin: 02/20/18 19:35 Dose: 100 mls/hr Nicardipine HCl (Cardene Iv Premix) 20 mg in 200 mls @ 50 mls/hr IV .Q4H PRN; Protocol; 5 MG/HR PRN Reason: TITRATE PER MD ORDER Physical Exam - Constitutional Appears: No Acute Distress - Head Exam Head Exam: ATRAUMATIC, NORMAL INSPECTION, NORMOCEPHALIC - Eye Exam Eye Exam: Normal appearance, PERRL - ENT Exam ENT Exam: Mucous Membranes Dry - Neck Exam Neck exam: Positive for: Normal Inspection - Respiratory Exam Respiratory Exam: Decreased Breath Sounds, Clear to Auscultation Bilateral. absent: Rhonchi, Wheezes - Cardiovascular Exam Cardiovascular Exam: Irregular Rhythm, +S1, +S2 - GI/Abdominal Exam GI & Abdominal Exam: Normal Bowel Sounds, Soft. absent: Tenderness - Extremities Exam Extremities exam: Positive for: pedal edema Additional comments: Chronic venous stasis on lower extremities b/l Lower extremities bandaged b/l - Neurological Exam Neurological exam: Alert Additional comments: Muscle strength 0/5 in right upper extremity, otherwise 5/5 throughout No sensation in right upper extremity - Psychiatric Exam Psychiatric exam: Normal Affect, Normal Mood - Skin Skin Exam: Dry, Erythema Additional comments: Lower extremity b/l chronic venous stasis changes Erythema of b/l lower extremities b/l lower extremities bandaged Results - Vital Signs Recent Vital Signs: Last Vital Signs Temp 98.6 F 02/20/18 19:45 Pulse 82 02/20/18 20:21 Resp 16 02/20/18 20:21 BP 131/80 02/20/18 20:21 Pulse Ox 100 02/20/18 20:21 - Labs Result Diagrams: 02/20/18 16:55 02/20/18 16:55 Assessment & Plan - Assessment and Plan (Free Text) Plan: 63 year old male with past medical history of asthma, morbid obesity, CHF, A-fib , HTN, renal insufficiency, and chronic lymphedema presents with acute ischemic stroke. Patient received tPA in the ED and will be admitted to the ICU for closer monitoring. Neuro: Consider repeat Brain MRI Carotid US Neurochecks q1h Vitals q30 min Given tPA Will repeat head CT if any acute changes PT eval Swallow eval Cardio: Cardiene drip, maintain SBP <185, DBP <110 Hemodynamically stable Troponin 0.05, will trend Hold warfarin Will continue Lasix IV due to CHF Respiratory: Duonebs prn Nasal cannula prn Maintain O2 sat > 90% GI: Protonix NPO till swallow eval ID: Zyvox as per primary for cellulitis of lower extermity Maintain normothermia Nephro: Hx of renal insufficiency Recheck CMP in AM Replete electrolytes as needed Lynnette, PGY-2 <Alena MCKEON,Augusto - Last Filed: 02/21/18 06:54> Meds - Medications Medications: Current Medications Furosemide (Lasix) 60 mg IVP Q12 SACHIN Nicardipine HCl (Cardene Iv Premix) 20 mg in 200 mls @ 50 mls/hr IV .Q4H PRN; Protocol; 5 MG/HR PRN Reason: TITRATE PER MD ORDER Last Admin: 02/21/18 06:10 Dose: 12.5 mg/hr, 125 mls/hr Pantoprazole Sodium (Protonix Inj) 40 mg IVP DAILY SACHIN Results - Vital Signs Recent Vital Signs: Last Vital Signs Temp 98.0 F 02/20/18 21:19 Pulse 76 02/21/18 02:44 Resp 23 02/20/18 22:38 BP 121/61 02/21/18 02:45 Pulse Ox 94 L 02/21/18 02:44 - Labs Result Diagrams: 02/20/18 16:55 02/20/18 16:55 Labs: Laboratory Results - last 24 hr 02/20/18 02/20/18 22:44 23:05 POC Glucose (mg/dL) 126 H Troponin I 0.06 Attending/Attestation - Attestation I have personally seen and examined this patient.: Yes I have fully participated in the care of the patient.: Yes I have reviewed all pertinent clinical information: Yes Notes (Text): -I agree with the above ICU consult note completed by the resident physician with the following additions and/or changes: -The patient is a 63 year old man with a history of CARMELA, morbid obesity, CHF (EF =25%), paroxysmal A-fib (non-compliant with Coumadin), HTN, chronic renal insufficiency and chronic lymphedema, who is being admitted with uncontrolled HTN and acute ischemic CVA (s/p t-PA administered earlier this evening in the ED ). Neuro checks will be monitored hourly and vitals every 30 minutes. Nicardipine drip to keep SBP<185 and DBP<105. Continue home meds of IV Lasix Q12hrs (with holding parameters). Fall and seizure precautions and HOB>30 degrees. Neurology is already on board. Critical Care Time Spent: 60-90 minutes
--- NOTE | 2018-02-20 21:56 | CP.PCM.HP ---
<Americo Bishop - Last Filed: 02/20/18 21:50> History of Present Illness - History of Present Illness History of Present Illness: PGY-1 H&P for Dr. Brown This is a 63 year old male with PMHx asthma, morbid obesity, CARMELA, CHF, A-fib on coumadin, renal insufficiency, chronic lymphedema, medication non-compliance who presented with right sided weakness and aphasia. Patient is currently non- verbal. History obtained from family at bedside. Patient was found at 16:30 today collapsed. This was after he went to the bathroom. He was brought to the ED where Code Stroke protocol was initiated. In the ED, he was evaluated by neurology and tPA was given at around 18:30. Per staff, patient has had some improvement in the right sided weakness in the leg. He remains with right upper extremity weakness and aphasia. Per review of EMR: PMHx: asthma, morbid obesity, CHF, A-fib, HTN, renal insufficiency, and chronic lymphedema PSHx: Lap band, Left shoulder surgery Allergies: NKDA Social Hx: Former alcohol and substance abuse. Denies tobacco use Family Hx: Could not obtain from patient as he is non-verbal Medications: Reviewed, as per MAR Present on Admission - Present on Admission Any Indicators Present on Admission: No Review of Systems - Review of Systems Systems not reviewed;Unavailable: Acuity of Condition, Other (aphasia due to CVA ) Past Patient History - Infectious Disease Hx of Infectious Diseases: None - Tetanus Immunizations Tetanus Immunization: Unknown - Past Social History Smoking Status: Never Smoked - CARDIAC Hx Cardiac Disorders: Yes Hx Atrial Fibrillation: Yes Hx Congestive Heart Failure: Yes Hx Hypertension: Yes - PULMONARY Hx Respiratory Disorders: Yes Other/Comment: CHF - NEUROLOGICAL Hx Neurological Disorder: No - HEENT Hx HEENT Problems: No - RENAL Hx Chronic Kidney Disease: Yes - ENDOCRINE/METABOLIC Hx Endocrine Disorders: No - HEMATOLOGICAL/ONCOLOGICAL Hx Blood Disorders: No - INTEGUMENTARY Hx Dermatological Problems: Yes (CELLULITIS TO LOWER EXTREMITY) - MUSCULOSKELETAL/RHEUMATOLOGICAL Hx Musculoskeletal Disorders: Yes Hx Back Pain: Yes Hx Falls: Yes - GASTROINTESTINAL Hx Gastrointestinal Disorders: Yes Hx Constipation: Yes - GENITOURINARY/GYNECOLOGICAL Hx Reproductive Disorders: No - PSYCHIATRIC Hx Psychophysiologic Disorder: Yes Hx Depression: Yes Hx Substance Use: Yes - SURGICAL HISTORY Hx Gastric Bypass Surgery: Yes (Lap band) Hx Orthopedic Surgery: Yes - ANESTHESIA Hx Anesthesia: Yes Hx Anesthesia Reactions: No Hx Malignant Hyperthermia: No Meds Allergies/Adverse Reactions: Allergies Allergy/AdvReac Type Severity Reaction Status Date / Time No Known Allergies Allergy Verified 12/31/16 13:16 Physical Exam - Constitutional Appears: Chronically Ill - Head Exam Head Exam: ATRAUMATIC, NORMOCEPHALIC - Eye Exam Eye Exam: Normal appearance, PERRL - ENT Exam ENT Exam: Mucous Membranes Dry - Respiratory Exam Respiratory Exam: Decreased Breath Sounds. absent: Rales, Rhonchi, Wheezes - Cardiovascular Exam Cardiovascular Exam: Irregular Rhythm, +S1, +S2 - GI/Abdominal Exam GI & Abdominal Exam: Normal Bowel Sounds, Soft. absent: Firm, Tenderness - Extremities Exam Additional comments: chronic venous stasis in the legs bilaterally Leg dressings clean, dry, intact bilaterally - Neurological Exam Additional comments: Muscle strength 0/5 in right upper extremity. Muscle strength 5/5 in the other extremities Sensation to light touch intact except in the right upper extremity. - Skin Skin Exam: Dry, Warm Additional comments: chronic lymphedema in the legs Results - Vital Signs Recent Vital Signs: Last Vital Signs Temp 98.6 F 02/20/18 19:45 Pulse 92 H 02/20/18 20:30 Resp 18 02/20/18 20:30 BP 136/72 02/20/18 20:30 Pulse Ox 99 02/20/18 20:30 - Labs Result Diagrams: 02/20/18 16:55 02/20/18 16:55 Assessment & Plan - Assessment and Plan (Free Text) Assessment: This is a 63 year old male with PMHx asthma, morbid obesity, CARMELA, CHF, A-fib on coumadin, renal insufficiency, chronic lymphedema, medication non-compliance who presented with right sided weakness and aphasia. He was given tPA at approximately 18:30 on 02/20/18. Plan: 1. Code stroke -Head CT: multifocal chronic lacunes are identified the bilateral basal ganglia and Interval subacute or even acute small infarction not completely excluded in the same distribution of the medial bilateral cerebral hemispheres -Head/neck CTA: Mild to moderate b/l cavernous stenoses of the ICA, but otherwise patent -s/p tPA -Being monitored in the ICU -Maintain BP under 185/100 by titrating Cardene drip -Lipid panel is within normal limits -f/u Hemoglobin A1c, TSH, free T4 -urine drug screen ordered -carotid doppler ordered -venous duplex lower extremities ordered -Echo with bubble study ordered -Trending troponins and EKG -Cardiology consulted -Will await further neurology recommendations for further studies and intervention 2. Leg Cellulitis (MRSA and Pseudomonas) -ID consulted -Dose of Zyvox ordered for the evening. Will need standing order to be placed by ID -podiatry consulted Discussed with Dr. Stephanie Bishop PGY-1 <Rashad Brown - Last Filed: 02/26/18 15:46> Results - Vital Signs Recent Vital Signs: Last Vital Signs Temp 97.8 F 02/26/18 11:57 Pulse 75 02/26/18 11:57 Resp 20 02/26/18 11:57 BP 149/69 02/26/18 11:57 Pulse Ox 97 02/26/18 06:00 - Labs Result Diagrams: 02/26/18 05:30 02/26/18 05:30 Labs: Laboratory Results - last 24 hr 02/25/18 02/25/18 02/26/18 16:18 21:47 05:30 WBC 7.5 D RBC 4.36 Hgb 12.9 L Hct 40.3 L MCV 92.4 MCH 29.6 MCHC 32.0 RDW 14.6 H Plt Count 123 MPV 9.1 Gran % 63.3 Lymph % (Auto) 25.4 Harlan % (Auto) 7.7 H Eos % (Auto) 3.5 Baso % (Auto) 0.1 Gran # 4.74 Lymph # (Auto) 1.9 Harlan # (Auto) 0.6 Eos # (Auto) 0.3 Baso # (Auto) 0.01 PT INR APTT Sodium Potassium Chloride Carbon Dioxide Anion Gap BUN Creatinine Est GFR ( Amer) Est GFR (Non-Af Amer) POC Glucose (mg/dL) 93 112 H Random Glucose Calcium Phosphorus Magnesium Total Bilirubin Direct Bilirubin AST ALT Alkaline Phosphatase Total Protein Albumin Globulin Albumin/Globulin Ratio 02/26/18 02/26/18 02/26/18 05:30 05:30 07:27 WBC RBC Hgb Hct MCV MCH MCHC RDW Plt Count MPV Gran % Lymph % (Auto) Harlan % (Auto) Eos % (Auto) Baso % (Auto) Gran # Lymph # (Auto) Harlan # (Auto) Eos # (Auto) Baso # (Auto) PT 16.5 H INR 1.42 H APTT 38.4 H Sodium 145 Potassium 3.6 Chloride 101 Carbon Dioxide 34 H Anion Gap 14 BUN 24 H Creatinine 1.6 H Est GFR ( Amer) 53 Est GFR (Non-Af Amer) 44 POC Glucose (mg/dL) 79 Random Glucose 94 Calcium 8.5 Phosphorus 3.1 Magnesium 2.0 Total Bilirubin 2.5 H Direct Bilirubin 0.4 AST 19 ALT 20 Alkaline Phosphatase 65 Total Protein 6.4 Albumin 3.2 Globulin 3.2 Albumin/Globulin Ratio 1.0 L 02/26/18 11:18 WBC RBC Hgb Hct MCV MCH MCHC RDW Plt Count MPV Gran % Lymph % (Auto) Harlan % (Auto) Eos % (Auto) Baso % (Auto) Gran # Lymph # (Auto) Harlan # (Auto) Eos # (Auto) Baso # (Auto) PT INR APTT Sodium Potassium Chloride Carbon Dioxide Anion Gap BUN Creatinine Est GFR ( Amer) Est GFR (Non-Af Amer) POC Glucose (mg/dL) 103 Random Glucose Calcium Phosphorus Magnesium Total Bilirubin Direct Bilirubin AST ALT Alkaline Phosphatase Total Protein Albumin Globulin Albumin/Globulin Ratio Attending/Attestation - Attestation I have personally seen and examined this patient.: Yes I have fully participated in the care of the patient.: Yes I have reviewed all pertinent clinical information: Yes Notes (Text): Please see/read my dictated notes.
[2018-02-20] MEDS ORDERED: Linezolid 600 mg in D5W 300 ml 600 MG/300 ML BAG IVPB SCH (22:00)
--- NOTE | 2018-02-20 22:33 | CARD ---
APPROVED REPORT EKG Measurement Heart [id number] <Conclusion> Consider arm lead reversal Atrial fibrillation T wave abnormality, consider inferior ischemia or digitalis effect Prolonged QT Abnormal ECG
[2018-02-20 23:29] VITALS: BMI 52.4
[2018-02-20 23:53] LABS: BARBITURATES, UR NEGATIVE (NEGATIVE); BENZODIAZEPINES, UR NEGATIVE (NEGATIVE); OPIATES, UR NEGATIVE (NEGATIVE); PHENCYCLIDINE, UR NEGATIVE (NEGATIVE)
[2018-02-21] MEDS: Nicardipine 20 MG/200 ML 20 MG/200 ML BAG IV PRN ×3 (06:10→11:45)
--- NOTE | 2018-02-21 06:41 | CT ---
EXAM: CT Head Without Intravenous Contrast CLINICAL HISTORY: 63 years old, male; Signs and symptoms; Other: Post tpa; Additional info: Post-tpa pt agitated; Rule out acute ich TECHNIQUE: Axial computed tomography images of the head/brain without intravenous contrast. All CT scans at this facility use one or more dose reduction techniques, viz.: automated exposure control; ma/kV adjustment per patient size (including targeted exams where dose is matched to indication; i.e. head); or iterative reconstruction technique. Coronal and sagittal reformatted images were created and reviewed. COMPARISON: CT - HEAD W/O (CODE STROKE) 2018-02-20 17:06 FINDINGS: Limitations: The study is limited due to motion artifact. Brain: There is severe ill-defined patchy hypodensity within the bilateral cerebral periventricular white matter, consistent with chronic microvascular ischemic changes. Chronic ischemic changes/lacunar infarctions are seen in bilateral basal ganglia. There is moderate diffuse cerebral atrophy present, consistent with this patient's age. The cortical vivas / white matter interfaces are preserved throughout the brain. No hemorrhage. Brainstem: Chronic ischemic changes are seen in the harshad. Ventricles: The ventricular system demonstrates moderate diffuse compensatory enlargement. Bones/joints: Unremarkable. No acute fracture. Soft tissues: Unremarkable. Vasculature: There is no hyperdense MCA sign. Sinuses: Unremarkable as visualized. No acute sinusitis. Mastoid air cells: Unremarkable as visualized. No mastoid effusion. IMPRESSION: No acute infarction, masses or hemorrhage is seen. No acute intracranial abnormality is identified.There has been no adverse interval change since the previous study. Diffuse age-related cerebral atrophy and severe chronic microvascular white matter ischemic changes, without evidence of an acute intracranial abnormality.
--- NOTE | 2018-02-21 10:21 | CP.CCUPN ---
<Himanshu Fairchild Avelina - Last Filed: 02/21/18 10:29> CCU Subjective - Physician Review Events Since Last Encounter (Free Text): 02/21/18 10:29 Patient seen and examined at bedside, acute events overnight included agitaiton , patient was given haldol, versed, and ativan. Patient appears more altered than appreciated from chart review. CCU Objective - Vital Signs / Intake & Output Vital Signs (Last 4 hours): Vital Signs Temp Pulse Resp BP Pulse Ox 02/21/18 10:10 89 95 02/21/18 10:00 78 26 H 131/65 86 L 02/21/18 09:58 142/87 02/21/18 09:50 82 98 02/21/18 09:40 94 H 96 02/21/18 09:30 86 142/87 88 L 02/21/18 09:20 76 97 02/21/18 09:10 65 97 02/21/18 09:00 72 111/52 L 87 L 02/21/18 08:50 74 98 02/21/18 08:40 99 H 95 02/21/18 08:30 86 144/61 85 L 02/21/18 08:20 95 H 97 02/21/18 08:15 96 H 137/53 L 88 L 02/21/18 08:10 94 H 98 02/21/18 08:00 98.6 F 73 24 134/61 82 L 02/21/18 07:50 90 97 02/21/18 07:45 86 135/73 94 L 02/21/18 07:40 86 98 02/21/18 07:30 80 121/52 L 98 02/21/18 07:20 74 98 02/21/18 07:15 78 123/68 97 02/21/18 07:10 65 98 02/21/18 07:00 65 108/53 L 97 02/21/18 06:56 67 02/21/18 06:50 67 93 L 02/21/18 06:45 73 127/63 92 L 02/21/18 06:40 81 89 L 02/21/18 06:30 76 110/62 87 L Intake and Output (Last 8hrs): Intake & Output 02/20/18 02/21/18 02/21/18 22:59 06:59 14:59 Intake Total 100 200 Output Total 800 Balance -800 100 200 Weight 147.418 kg Intake: IV 100 200 Output: Urine 800 Urine, Voided 800 - Medications Active Medications: Active Medications Generic Name Dose Route Start Last Admin Trade Name [place] PRN Reason Stop Dose Admin Furosemide 60 mg 02/21/18 10:00 02/21/18 09:58 Lasix IVP 60 mg Q12 SACHIN Administration Nicardipine HCl 20 mg in 200 mls @ 50 mls/hr 02/21/18 03:12 02/21/18 09:30 Cardene Iv Premix IV 10 mg/hr .Q4H PRN 100 mls/hr TITRATE PER MD ORDER Administration Protocol 5 MG/HR Pantoprazole Sodium 40 mg 02/21/18 10:00 02/21/18 09:58 Protonix Inj IVP 40 mg DAILY SACHIN Administration - Patient Studies Lab Studies: Lab Studies 02/21/18 02/20/18 02/20/18 Range/Units 08:15 23:05 22:44 POC Glucose (mg/dL) 109 126 H (65-110) mg/dL Troponin I 0.06 ng/mL Laboratory Results - last 24 hr 02/20/18 02/20/18 02/21/18 22:44 23:05 08:15 POC Glucose (mg/dL) 126 H 109 Troponin I 0.06 Fingerstick Blood Sugar Results: 109 Critical Care Progress Note - Nutrition Nutrition: Nutrition Category Date Time Status NPO Diet [DIET] Diets 02/20/18 Dinner Ordered Assessment/Plan - Assessment and Plan (Free Text) Assessment: 63 year old male with past medical history of asthma, morbid obesity, CHF, A-fib , HTN, renal insufficiency, and chronic lymphedema presents with acute ischemic stroke. Patient received tPA in the ED and will be admitted to the ICU for closer monitoring. Neuro: - Carotid US pending - Neurochecks q1h - Vitals q30 min - Given tPA - Will repeat head CT if any acute changes - PT eval - Swallow eval Cardio: - Get off cardine drip once speech and swallow passed and switch to HECTOR-I and Norvasc - Hemodynamically stable - Troponin 0.05, will trend - Hold warfarin - Will continue Lasix IV due to CHF Respiratory: Duonebs prn Nasal cannula prn Maintain O2 sat > 90% GI: Protonix NPO till swallow eval ID: Zyvox as per primary for cellulitis of lower extermity Maintain normothermia Nephro: Hx of renal insufficiency - at baseine currently Monitor with CMP Replete electrolytes as needed Heme: Hold Warfarin to avoid hemorrhagic transformation Endo: Maintain Euglycemia <Alfredo Carroll - Last Filed: 02/21/18 10:48> CCU Objective - Vital Signs / Intake & Output Vital Signs (Last 4 hours): Vital Signs Temp Pulse Resp BP Pulse Ox 02/21/18 10:10 89 95 02/21/18 10:00 78 26 H 131/65 86 L 02/21/18 09:58 142/87 02/21/18 09:50 82 98 02/21/18 09:40 94 H 96 02/21/18 09:30 86 142/87 88 L 02/21/18 09:20 76 97 02/21/18 09:10 65 97 02/21/18 09:00 72 111/52 L 87 L 02/21/18 08:50 74 98 02/21/18 08:40 99 H 95 02/21/18 08:30 86 144/61 85 L 02/21/18 08:20 95 H 97 02/21/18 08:15 96 H 137/53 L 88 L 02/21/18 08:10 94 H 98 02/21/18 08:00 98.6 F 73 24 134/61 82 L 02/21/18 07:50 90 97 02/21/18 07:45 86 135/73 94 L 02/21/18 07:40 86 98 02/21/18 07:30 80 121/52 L 98 02/21/18 07:20 74 98 02/21/18 07:15 78 123/68 97 02/21/18 07:10 65 98 02/21/18 07:00 65 108/53 L 97 02/21/18 06:56 67 02/21/18 06:50 67 93 L 02/21/18 06:45 73 127/63 92 L Intake and Output (Last 8hrs): Intake & Output 02/20/18 02/21/18 02/21/18 22:59 06:59 14:59 Intake Total 100 200 Output Total 800 Balance -800 100 200 Weight 325 lb Intake: IV 100 200 Output: Urine 800 Urine, Voided 800 - Medications Active Medications: Active Medications Generic Name Dose Route Start Last Admin Trade Name Freq PRN Reason Stop Dose Admin Furosemide 60 mg 02/21/18 10:00 02/21/18 09:58 Lasix IVP 60 mg Q12 SACHIN Administration Nicardipine HCl 20 mg in 200 mls @ 50 mls/hr 02/21/18 03:12 02/21/18 09:30 Cardene Iv Premix IV 10 mg/hr .Q4H PRN 100 mls/hr TITRATE PER MD ORDER Administration Protocol 5 MG/HR Linezolid 600 mg in 300 mls @ 200 mls/hr 02/21/18 10:45 Zyvox 600mg/300ml D5w IVPB 02/28/18 10:46 Q12 SACHIN Protocol Pantoprazole Sodium 40 mg 02/21/18 10:00 02/21/18 09:58 Protonix Inj IVP 40 mg DAILY SACHIN Administration - Patient Studies Lab Studies: Lab Studies 02/21/18 02/20/18 02/20/18 Range/Units 08:15 23:05 22:44 POC Glucose (mg/dL) 109 126 H (65-110) mg/dL Troponin I 0.06 ng/mL Laboratory Results - last 24 hr 02/20/18 02/20/18 02/21/18 22:44 23:05 08:15 POC Glucose (mg/dL) 126 H 109 Troponin I 0.06 Critical Care Progress Note - Nutrition Nutrition: Nutrition Category Date Time Status NPO Diet [DIET] Diets 02/20/18 Dinner Ordered Assessment/Plan - Assessment and Plan (Free Text) Assessment: Patient seen and examined on rounds with resident, agree with note with following additions/exceptions: Patient is 63yo male with PMHx asthma, morbid obesity, CHF, A-fib, HTN, renal insufficiency, and chronic lymphedema presents with acute ischemic stroke s/p tPA yesterday at 1800. Currently afebrile, on cardene drip, awake. Repeat CTH done at 5am, stable, no acute pathology Patient has history of Afib, questionable compliance with A/C. Cardiology following Afib morbid obesity Acute CVA s/p tPA CARMELA HTN CHF Recommend: - supp o2 as needed, BIPAP at night - duonebs PRN - NO ID issues - BP control, start ACEI, Coreg, cont with Lasix - follow up cardiology - speech swallow eval - repeat CTH 24h post tPA - ECHO - titrate off cardene drip - check TSH, HgbA1C, Lipid panel - hold A/C, HSQ for now - GI ppx - DVT ppx, SCDs - Monitor in MICU Critical care time 35 minutes
--- NOTE | 2018-02-21 10:45 | CP.PCM.CON ---
History of Present Illness - History of Present Illness History of Present Illness: 63 year old male with PMH of chronic systolic CHF with EF 25%, chronic atrial fibrillation, chronic lymphedema with chronic venous stasis, COPD, HTN, history of gastric bypass surgery, history of left knee surgery, right leg infected venous stasis ulcers, obstructive sleep apnea was brought in to [facility] after he was found in the bathroom on the floor and was noted to have right sided weakness and difficulty speaking. In the ED, the patient was found to have CVA and tPA was initiated and is now in the ICU for closer observation and monitoring. Currently the patient is agitated and not able to verbalize. Infectious diseases consult is requested for the right leg ulcers. ROS is unobtainable because the patient is agitated. Currently there is no note of fevers, no diarrhea, no vomiting, no convulsions. Patient was being treated in the wound care center with Zyvox for MRSA in the leg wounds. Review of Systems - Review of Systems All systems: reviewed and no additional remarkable complaints except (as per HPI ) Past Patient History - Infectious Disease Hx of Infectious Diseases: None - Tetanus Immunizations Tetanus Immunization: Unknown - Past Social History Smoking Status: Never Smoked - CARDIAC Hx Cardiac Disorders: Yes Hx Atrial Fibrillation: Yes Hx Congestive Heart Failure: Yes Hx Hypertension: Yes - PULMONARY Hx Respiratory Disorders: Yes Other/Comment: CHF - NEUROLOGICAL Hx Neurological Disorder: No - HEENT Hx HEENT Problems: No - RENAL Hx Chronic Kidney Disease: Yes - ENDOCRINE/METABOLIC Hx Endocrine Disorders: No - HEMATOLOGICAL/ONCOLOGICAL Hx Blood Disorders: No - INTEGUMENTARY Hx Dermatological Problems: Yes (CELLULITIS TO LOWER EXTREMITY) - MUSCULOSKELETAL/RHEUMATOLOGICAL Hx Musculoskeletal Disorders: Yes Hx Back Pain: Yes Hx Falls: Yes - GASTROINTESTINAL Hx Gastrointestinal Disorders: Yes Hx Constipation: Yes - GENITOURINARY/GYNECOLOGICAL Hx Reproductive Disorders: No - PSYCHIATRIC Hx Psychophysiologic Disorder: Yes Hx Depression: Yes Hx Substance Use: Yes - SURGICAL HISTORY Hx Gastric Bypass Surgery: Yes (Lap band) Hx Orthopedic Surgery: Yes - ANESTHESIA Hx Anesthesia: Yes Hx Anesthesia Reactions: No Hx Malignant Hyperthermia: No Meds Allergies/Adverse Reactions: Allergies Allergy/AdvReac Type Severity Reaction Status Date / Time No Known Allergies Allergy Verified 12/31/16 13:16 - Medications Medications: Current Medications Furosemide (Lasix) 60 mg IVP Q12 SACHIN Nicardipine HCl (Cardene Iv Premix) 20 mg in 200 mls @ 50 mls/hr IV .Q4H PRN; Protocol; 5 MG/HR PRN Reason: TITRATE PER MD ORDER Last Admin: 02/21/18 06:10 Dose: 12.5 mg/hr, 125 mls/hr Pantoprazole Sodium (Protonix Inj) 40 mg IVP DAILY SACHIN Physical Exam - Constitutional Appears: Agitated, Chronically Ill - Head Exam Head Exam: NORMAL INSPECTION - Neck Exam Neck exam: Negative for: Meningismus - Respiratory Exam Respiratory Exam: Decreased Breath Sounds - Cardiovascular Exam Cardiovascular Exam: +S1, +S2 - GI/Abdominal Exam GI & Abdominal Exam: Soft. absent: Tenderness - Extremities Exam Additional comments: both legs with dressings in place, but right leg with ulcers with serosanguinous discharge Results - Vital Signs Recent Vital Signs: Last Vital Signs Temp 98.0 F 02/20/18 21:19 Pulse 76 02/21/18 02:44 Resp 23 02/20/18 22:38 BP 121/61 02/21/18 02:45 Pulse Ox 94 L 02/21/18 02:44 - Labs Result Diagrams: 02/20/18 16:55 02/20/18 16:55 Labs: Laboratory Results - last 24 hr 02/20/18 02/20/18 22:44 23:05 POC Glucose (mg/dL) 126 H Troponin I 0.06 Assessment & Plan - Assessment and Plan (Free Text) Plan: Assessment right leg infected venous stasis ulcers, with recent cultures on 02/10/2018 showing MRSA and Pseudomonas acute CVA with right sided weakness S/P tPA infusion history of left lower extremity skin and skin structure infection with Klebsiella and MRSA in a patient with chronic venous stasis ulcers with no evidence of abscess or osteomyelitis on MRI, clinically improving Probable CHF exacerbation chronic systolic CHF with EF 25% chronic atrial fibrillation chronic lymphedema with chronic venous stasis COPD HTN history of gastric bypass surgery history of left knee surgery Plan will start zyvox and Merrem and will follow up repeat wound cx, blood cx and will follow up Podiatry evaluation and recommendations Will monitor clinically
[2018-02-21] MEDS: Meropenem IV 1 gm in NS 50 ML IVPB SCH ×2 (11:02→21:58)
[2018-02-21] MEDS: Linezolid 600 mg in D5W 300 ml 600 MG/300 ML BAG IVPB SCH ×2 (11:03→21:57)
--- NOTE | 2018-02-21 12:51 | CP.PCM.CON ---
History of Present Illness - History of Present Illness History of Present Illness: Mr. Damon is a 63-year-old man with a past medical history of HTN, CHF, COPD, HLD, who was noted to have right side weakness and aphasia that started yesterday about 35 minutes prior to arrival to the ED. He was a candidate for IV tPA and the CT scan of the head did not show any acute findings. However, CTA of the head/neck did not demonstrate and large vessel occlusion. After IV tPA, the patient was transferred to the ICU. I had evaluated the patient in the ED when he arrived through telestroke. Consent for tPA was obtained from the family, who was at bedside, after I explained all the risks and benefits. Review of Systems - Review of Systems All systems: reviewed and no additional remarkable complaints except Past Patient History - Infectious Disease Hx of Infectious Diseases: None - Tetanus Immunizations Tetanus Immunization: Unknown - Past Social History Smoking Status: Never Smoked - CARDIAC Hx Cardiac Disorders: Yes Hx Atrial Fibrillation: Yes Hx Congestive Heart Failure: Yes Hx Hypertension: Yes - PULMONARY Hx Respiratory Disorders: Yes Other/Comment: CHF - NEUROLOGICAL Hx Neurological Disorder: No - HEENT Hx HEENT Problems: No - RENAL Hx Chronic Kidney Disease: Yes - ENDOCRINE/METABOLIC Hx Endocrine Disorders: No - HEMATOLOGICAL/ONCOLOGICAL Hx Blood Disorders: No - INTEGUMENTARY Hx Dermatological Problems: Yes (CELLULITIS TO LOWER EXTREMITY) - MUSCULOSKELETAL/RHEUMATOLOGICAL Hx Musculoskeletal Disorders: Yes Hx Back Pain: Yes Hx Falls: Yes - GASTROINTESTINAL Hx Gastrointestinal Disorders: Yes Hx Constipation: Yes - GENITOURINARY/GYNECOLOGICAL Hx Reproductive Disorders: No - PSYCHIATRIC Hx Psychophysiologic Disorder: Yes Hx Depression: Yes Hx Substance Use: Yes - SURGICAL HISTORY Hx Gastric Bypass Surgery: Yes (Lap band) Hx Orthopedic Surgery: Yes - ANESTHESIA Hx Anesthesia: Yes Hx Anesthesia Reactions: No Hx Malignant Hyperthermia: No Meds Allergies/Adverse Reactions: Allergies Allergy/AdvReac Type Severity Reaction Status Date / Time No Known Allergies Allergy Verified 12/31/16 13:16 - Medications Medications: Current Medications Furosemide (Lasix) 60 mg IVP Q12 SACHIN Last Admin: 02/21/18 09:58 Dose: 60 mg Nicardipine HCl (Cardene Iv Premix) 20 mg in 200 mls @ 50 mls/hr IV .Q4H PRN; Protocol; 5 MG/HR PRN Reason: TITRATE PER MD ORDER Last Admin: 02/21/18 11:45 Dose: 10 mg/hr, 100 mls/hr Linezolid (Zyvox 600mg/300ml D5w) 600 mg in 300 mls @ 200 mls/hr IVPB Q12 SACHIN PRN Reason: Protocol Stop: 02/28/18 10:46 Last Admin: 02/21/18 11:03 Dose: 200 mls/hr Meropenem (Merrem Iv 1 Gm Premix) 50 mls @ 100 mls/hr IVPB Q12 SACHIN PRN Reason: Protocol Last Admin: 02/21/18 11:02 Dose: 100 mls/hr Pantoprazole Sodium (Protonix Inj) 40 mg IVP DAILY [facility] Last Admin: 02/21/18 09:58 Dose: 40 mg Physical Exam - Neurological Exam Neurological exam: Altered, CN II-XII Intact Additional comments: Aphasic and dysarthric, unable to follow commands on the right side with hemiplegia, moves his left side, has a slight right facial droop, gaze is toward the left and forced, NIHSS = 17 Results - Vital Signs Recent Vital Signs: Last Vital Signs Temp 98.6 F 02/21/18 12:07 Pulse 74 02/21/18 12:07 Resp 24 02/21/18 12:07 BP 139/65 02/21/18 12:07 Pulse Ox 97 02/21/18 12:07 - Labs Result Diagrams: 02/20/18 16:55 02/20/18 16:55 Labs: Laboratory Results - last 24 hr 02/20/18 02/20/18 02/21/18 22:44 23:05 08:15 POC Glucose (mg/dL) 126 H 109 Troponin I 0.06 02/21/18 12:05 POC Glucose (mg/dL) 120 H Troponin I Assessment & Plan (1) CVA (cerebral vascular accident) Assessment and Plan: tPA was given, the patient was transferred to the ICU for post-tPA protocol. He is stable. Repeat CT head did not show any significant changes, and there is no hemorrhagic conversion. I recommend the followin. Close observation in ICU 2. Echocardiogram 3. MRI brain without contrast 4. Hold antiplatelet agents or anticoagulants for 24 hours after tPA 5. Follow post-tPA protocol for BP management. 6. PT/OT eval and treatment 7. Consult cardiology 8. SCD for DVT Px 9. Case management consult Thank you. Status: Acute Priority: High
--- NOTE | 2018-02-21 13:45 | CARD ---
APPROVED REPORT EXAM: Two-dimensional and M-mode echocardiogram with Doppler and color Doppler. INDICATION STROKE/BUBBLE STUDY 2D DIMENSIONS Left Atrium (2D)5.4 (1.6-4.0cm)IVSd1.8 (0.7-1.1cm) LVDd5.9 (3.9-5.9cm)PWd1.6 (0.7-1.1cm) LVDs4.2 (2.5-4.0cm)FS (%) 28.8 % LVEF (%)50.0 (>50%) M-Mode DIMENSIONS Aortic Root4.10 (2.2-3.7cm)Aortic Cusp Exc.2.20 (1.5-2.0cm) Aortic Valve AoV Peak Vanhqqvp452.0cm/Tyson Peak GR.13mmHg Mitral Valve E/A ratio0.0 TDI E/Lateral E'0.0E/Medial E'0.0 Pulmonary Valve PV Peak Txqgwmwv68.1cm/sPV Peak Grad.2mmHg Tricuspid Valve TR Peak [id number]/sRAP [id number] Peak Gr.50mmHg [id number] LEFT VENTRICLE The left ventricle is normal size. There is normal left ventricular wall thickness. Left ventricle systolic function is borderline. There is normal LV segmental wall motion. No left ventricle thrombus noted on this study. RIGHT VENTRICLE The right ventricle is borderline dilated. There is normal right ventricular wall thickness. RV Systolic function is moderately reduced. ATRIA The left atrium is moderately dilated. The right atrium is moderately dilated. The interatrial septum is intact with no evidence for an atrial septal defect. AORTIC VALVE The aortic valve is thickened but opens well. No aortic regurgitation is present. There is no aortic valvular stenosis. MITRAL VALVE The mitral valve is mildly thickened. Mitral regurgitation is trace to mild. TRICUSPID VALVE There is moderate tricuspid regurgitation. There is severe pulmonary hypertension. PULMONIC VALVE There is trace pulmonic valvular regurgitation. GREAT VESSELS The aortic root is mildly enlarged. The IVC is dilated. The IVC collapses <50% with inspiration. <Conclusion> The left ventricle is normal size. Left ventricle systolic function is borderline. There is normal LV segmental wall motion. No left ventricle thrombus noted on this study. RV Systolic function is moderately reduced. The left atrium is moderately dilated. There is moderate tricuspid regurgitation. There is severe pulmonary hypertension. The aortic root is mildly enlarged. The interatrial septum is intact with no evidence for an atrial septal defect.
--- NOTE | 2018-02-21 14:09 | PN ---
DATE: 02/21/2018 SUBJECTIVE: The patient is in the Critical Care Unit. He was treated and admitted through the Emergency Room. The patient presented with a stroke. He had right-sided weakness and aphasia, he was not able to communicate. The patient was found by his son. He was in the bathroom, he had collapsed. PAST MEDICAL HISTORY: His past history is significant. He has had history of morbid obesity. He was treated with bariatric surgery about 10 years ago. The patient has past history of obstructive sleep apnea, congestive heart failure, atherosclerotic heart disease, atrial fibrillation. The patient had been placed on Coumadin. He is a noncompliant patient. The patient also has history of asthma, renal insufficiency, chronic lymphedema. The patient has had lymphedema for a long time. Dr. Anusha Sebastian is the painting manager who takes care of the patient's chronic lymphedema with ulceration of the legs and the patient gets antibiotic treatment and local treatment by Dr. Sebastian. ALLERGIES: THE PATIENT HAS NO KNOWN ALLERGIES. SOCIAL HISTORY: He has history of alcohol abuse in the past and the patient also is noncompliant with diet. The patient also has a history of having MRSA, methicillin-resistant infection of the leg, which is of course unusual in a patient with chronic leg infection with open wounds. On visiting him today, the patient is sedated by his Haldol and tranquilizer because he was agitated. PHYSICAL EXAMINATION: VITAL SIGNS: His pulse is 94, blood pressure 130/60, respirations 24. The patient is on a Venturi mask for breathing. HEENT: His head is normocephalic. GENERAL: His physique, he is an obese patient. Leg is left with surgical bandage after treatment by Dr. Sebastian. The patient is not able to communicate. LUNGS: Bilateral diminished breath sounds. HEART: Atrial fibrillation with moderate ventricular response. ABDOMEN: Obese with no tenderness, no masses. CENTRAL NERVOUS SYSTEM: He had left-sided stroke affecting speech, right-sided weakness. The patient has had t-PA in the Emergency Room at the time of initial visit yesterday. The patient had been seen by neurologist and the patient has treatment provided by Dr. Sebastian, the painting manager. The patient is critically ill at this time. We will continue current management. MEDICATIONS: The patient is on Cardene IV for blood pressure control. The patient is on Lasix 60 mg every 12 hours. The patient is on pantoprazole 40 mg daily and oxygen is provided to the patient. All modalities of treatment and observation for acute stroke is being maintained. We will follow up. Jillian Dent MD MTDJosé Luis
--- NOTE | 2018-02-21 14:41 | CT ---
PROCEDURE: CT HEAD WITHOUT CONTRAST. HISTORY: stroke symptosm COMPARISON: Earlier same day TECHNIQUE: Axial computed tomography images were obtained through the head/brain without intravenous contrast. Radiation dose: Total exam DLP = 957 mGy-cm. This CT exam was performed using one or more of the following dose reduction techniques: Automated exposure control, adjustment of the mA and/or kV according to patient size, and/or use of iterative reconstruction technique. FINDINGS: HEMORRHAGE: No intracranial hemorrhage. BRAIN: No mass effect or edema. Severe chronic microvascular changes are seen in the periventricular white matter, basal ganglia and harshad. Findings are unchanged. VENTRICLES: Unremarkable. No hydrocephalus. CALVARIUM: Unremarkable. PARANASAL SINUSES: Unremarkable as visualized. No significant inflammatory changes. MASTOID AIR CELLS: Unremarkable as visualized. No inflammatory changes. OTHER FINDINGS: None. IMPRESSION: No acute intracranial findings
--- NOTE | 2018-02-21 15:48 | CP.PCM.CON ---
<Randy,Mark - Last Filed: 02/21/18 15:43> History of Present Illness - History of Present Illness History of Present Illness: Consult Note for Dr. Byers 63M with PMHx asthma, morbid obesity, CHF, A-fib, HTN, renal insufficiency, and chronic lymphedema seen at bedside for consult of b/l venous stasis leg ulcerations. Patient is non-verbal and incoherent during examination. He is accompanied by his daughter and son. Patient's history taken from chart Review of Systems - Review of Systems All systems: reviewed and no additional remarkable complaints except Review of Systems: as per HPI Past Patient History - Infectious Disease Hx of Infectious Diseases: None - Tetanus Immunizations Tetanus Immunization: Unknown - Past Social History Smoking Status: Never Smoked - CARDIAC Hx Cardiac Disorders: Yes Hx Atrial Fibrillation: Yes Hx Congestive Heart Failure: Yes Hx Hypertension: Yes - PULMONARY Hx Respiratory Disorders: Yes Other/Comment: CHF - NEUROLOGICAL Hx Neurological Disorder: No - HEENT Hx HEENT Problems: No - RENAL Hx Chronic Kidney Disease: Yes - ENDOCRINE/METABOLIC Hx Endocrine Disorders: No - HEMATOLOGICAL/ONCOLOGICAL Hx Blood Disorders: No - INTEGUMENTARY Hx Dermatological Problems: Yes (CELLULITIS TO LOWER EXTREMITY) - MUSCULOSKELETAL/RHEUMATOLOGICAL Hx Musculoskeletal Disorders: Yes Hx Back Pain: Yes Hx Falls: Yes - GASTROINTESTINAL Hx Gastrointestinal Disorders: Yes Hx Constipation: Yes - GENITOURINARY/GYNECOLOGICAL Hx Reproductive Disorders: No - PSYCHIATRIC Hx Psychophysiologic Disorder: Yes Hx Depression: Yes Hx Substance Use: Yes - SURGICAL HISTORY Hx Gastric Bypass Surgery: Yes (Lap band) Hx Orthopedic Surgery: Yes - ANESTHESIA Hx Anesthesia: Yes Hx Anesthesia Reactions: No Hx Malignant Hyperthermia: No Meds Allergies/Adverse Reactions: Allergies Allergy/AdvReac Type Severity Reaction Status Date / Time No Known Allergies Allergy Verified 12/31/16 13:16 - Medications Medications: Current Medications Furosemide (Lasix) 60 mg IVP Q12 SACHIN Last Admin: 02/21/18 09:58 Dose: 60 mg Nicardipine HCl (Cardene Iv Premix) 20 mg in 200 mls @ 50 mls/hr IV .Q4H PRN; Protocol; 5 MG/HR PRN Reason: TITRATE PER MD ORDER Last Titration: 02/21/18 12:30 Dose: 0 mg/hr, 0 mls/hr Linezolid (Zyvox 600mg/300ml D5w) 600 mg in 300 mls @ 200 mls/hr IVPB Q12 SACHIN PRN Reason: Protocol Stop: 02/28/18 10:46 Last Admin: 02/21/18 11:03 Dose: 200 mls/hr Meropenem (Merrem Iv 1 Gm Premix) 50 mls @ 100 mls/hr IVPB Q12 SACHIN PRN Reason: Protocol Last Admin: 02/21/18 11:02 Dose: 100 mls/hr Pantoprazole Sodium (Protonix Inj) 40 mg IVP DAILY [facility] Last Admin: 02/21/18 09:58 Dose: 40 mg Physical Exam - Constitutional Appears: Agitated, Chronically Ill - Head Exam Head Exam: ATRAUMATIC, NORMOCEPHALIC - Extremities Exam Additional comments: B/l LE focused exam Vasc: DP/PT pulses non-palpable secondary to b/l lymphedema. CFT > 3 seconds to all digits. Skin temperature warm to warm from proximal to distal. Severe b/l lymphedema noted b/l Neuro: Unable to assess due to mental status Derm: RLE - Approx 6 cm x 5 cm superficial venous stasis ulceration noted to lateral right leg. No erythema, no malodor, no other clinical signs of infection. Moderate serous drainage noted to site. Base is fibrogranular. LLE- One 0.5 cm x 0.5 cm x 0.1 venous stasis ulceration noted to anterior leg and one noted to posterior leg. No erythema, no malodor, no other clinical signs of infection. Moderate serous drainage noted to site. Base is fibrogranular. MSK: Unable to assess pain on palpation, MMT or ROM. No other gross deformities noted - Neurological Exam Neurological exam: Altered - Psychiatric Exam Psychiatric exam: Agitated, Flat Affect Results - Vital Signs Recent Vital Signs: Last Vital Signs Temp 98.6 F 02/21/18 12:07 Pulse 57 L 02/21/18 13:00 Resp 24 02/21/18 13:00 BP 116/51 L 02/21/18 13:00 Pulse Ox 96 02/21/18 13:00 - Labs Result Diagrams: 02/20/18 16:55 02/20/18 16:55 Labs: Laboratory Results - last 24 hr 02/20/18 02/20/18 02/21/18 22:44 23:05 08:15 POC Glucose (mg/dL) 126 H 109 Troponin I 0.06 02/21/18 12:05 POC Glucose (mg/dL) 120 H Troponin I Assessment & Plan - Assessment and Plan (Free Text) Assessment: 63M seen for b/l venous stasis ulcerations R worse than L Plan: Patient seen and evaluated with attending Dr. Byers Absent leukocytosis Continue abx per ID F/u wound cx Wounds cleansed with saline and dressed with DSD, ABD right side, optifoam left side No plan for surgical intervention at this time Podiatry will continue to follow while patient in house - Date & Time Date: 02/21/18 Time: 15:57 <Mynor Byers - Last Filed: 02/22/18 08:09> Meds - Medications Medications: Current Medications Furosemide (Lasix) 60 mg IVP Q12 [facility] Last Admin: 02/21/18 21:56 Dose: 60 mg Nicardipine HCl (Cardene Iv Premix) 20 mg in 200 mls @ 50 mls/hr IV .Q4H PRN; Protocol; 5 MG/HR PRN Reason: TITRATE PER MD ORDER Last Titration: 02/21/18 12:30 Dose: 0 mg/hr, 0 mls/hr Linezolid (Zyvox 600mg/300ml D5w) 600 mg in 300 mls @ 200 mls/hr IVPB Q12 SACHIN PRN Reason: Protocol Stop: 02/28/18 10:46 Last Admin: 02/21/18 21:57 Dose: 200 mls/hr Meropenem (Merrem Iv 1 Gm Premix) 50 mls @ 100 mls/hr IVPB Q12 SACHIN PRN Reason: Protocol Last Admin: 02/21/18 21:58 Dose: 100 mls/hr Pantoprazole Sodium (Protonix Inj) 40 mg IVP DAILY [facility]ACHIN Last Admin: 02/21/18 09:58 Dose: 40 mg Results - Vital Signs Recent Vital Signs: Last Vital Signs Temp 98 F 02/22/18 04:00 Pulse 111 H 02/22/18 06:20 Resp 20 02/22/18 04:13 BP 167/80 H 02/22/18 06:19 Pulse Ox 90 L 02/22/18 06:20 - Labs Result Diagrams: 02/22/18 04:20 06/16/18 04:20 Labs: Laboratory Results - last 24 hr 02/21/18 02/21/18 02/21/18 08:15 12:05 16:16 WBC RBC Hgb Hct MCV MCH MCHC RDW Plt Count MPV Sodium Potassium Chloride Carbon Dioxide Anion Gap BUN Creatinine Est GFR ( Amer) Est GFR (Non-Af Amer) POC Glucose (mg/dL) 109 120 H 88 Random Glucose Calcium Magnesium Total Bilirubin AST ALT Alkaline Phosphatase Troponin I Total Protein Albumin Globulin Albumin/Globulin Ratio Free T4 TSH 3rd Generation 02/21/18 02/21/18 02/21/18 21:41 21:41 21:41 WBC 10.6 D RBC 4.19 Hgb 12.7 L Hct 38.4 L MCV 91.6 MCH 30.3 MCHC 33.1 RDW 15.0 H Plt Count 166 MPV 9.1 Sodium 143 Potassium 3.4 L Chloride 104 Carbon Dioxide 26 Anion Gap 16 BUN 22 H Creatinine 2.1 H Est GFR ( Amer) 39 Est GFR (Non-Af Amer) 32 POC Glucose (mg/dL) Random Glucose 106 Calcium 8.4 Magnesium Total Bilirubin 2.3 H AST 19 ALT 21 Alkaline Phosphatase 68 Troponin I 0.11 D Total Protein 7.1 Albumin 3.8 Globulin 3.3 Albumin/Globulin Ratio 1.2 Free T4 1.51 TSH 3rd Generation 3.19 02/21/18 02/22/18 02/22/18 21:50 04:20 04:20 WBC 9.7 RBC 4.20 Hgb 12.7 L Hct 39.4 L MCV 93.8 MCH 30.2 MCHC 32.2 RDW 15.0 H Plt Count 165 MPV 9.1 Sodium 141 Potassium 3.3 L Chloride 103 Carbon Dioxide 28 Anion Gap 13 BUN 20 Creatinine 2.0 H Est GFR ( Amer) 41 Est GFR (Non-Af Amer) 34 POC Glucose (mg/dL) 88 Random Glucose 108 Calcium 8.2 L Magnesium 1.4 L Total Bilirubin 2.5 H AST 18 ALT 25 Alkaline Phosphatase 70 Troponin I Total Protein 7.0 Albumin 3.6 Globulin 3.4 Albumin/Globulin Ratio 1.1 Free T4 TSH 3rd Generation 02/22/18 07:21 WBC RBC Hgb Hct MCV MCH MCHC RDW Plt Count MPV Sodium Potassium Chloride Carbon Dioxide Anion Gap BUN Creatinine Est GFR ( Amer) Est GFR (Non-Af Amer) POC Glucose (mg/dL) 102 Random Glucose Calcium Magnesium Total Bilirubin AST ALT Alkaline Phosphatase Troponin I Total Protein Albumin Globulin Albumin/Globulin Ratio Free T4 TSH 3rd Generation Attending/Attestation - Attestation I have personally seen and examined this patient.: Yes I have fully participated in the care of the patient.: Yes I have reviewed all pertinent clinical information: Yes
[2018-02-21 21:46] LABS: HEMOGLOBIN 12.7 g/dL (14.0-18.0); MEAN CELL VOLUME 91.6 fl (80.0-105.0); MEAN CORPUSCULAR HEMOGLOBIN 30.3 pg (25.0-35.0); MEAN CORPUSCULAR HGB CONC 33.1 g/dl (31.0-37.0); MEAN PLATELET VOLUME 9.1 fl (7.0-11.0); RBC 4.19 10^6/uL (3.5-6.1); WHITE BLOOD COUNT 10.6 10^3/ul (4.5-11.0)
[2018-02-21 21:57] LABS: ALB/GLOB RATIO 1.2 (1.1-1.8); ALBUMIN 3.8 g/dL (3.0-4.8); CALCIUM 8.4 mg/dL (8.4-10.5)
[2018-02-21 22:06] LABS: TROPONIN I 0.11 ng/mL
[2018-02-21 22:19] LABS: FREE T4 1.51 ng/dL (0.78-2.19)
[2018-02-22 04:33] LABS: WHITE BLOOD COUNT 9.7 10^3/ul (4.5-11.0)
[2018-02-22 04:34] LABS: HEMOGLOBIN 12.7 g/dL (14.0-18.0); MEAN CELL VOLUME 93.8 fl (80.0-105.0); MEAN CORPUSCULAR HEMOGLOBIN 30.2 pg (25.0-35.0); MEAN CORPUSCULAR HGB CONC 32.2 g/dl (31.0-37.0); MEAN PLATELET VOLUME 9.1 fl (7.0-11.0); RBC 4.2 10^6/uL (3.5-6.1)
[2018-02-22 05:29] LABS: ALB/GLOB RATIO 1.1 (1.1-1.8); ALBUMIN 3.6 g/dL (3.0-4.8); CALCIUM 8.2 mg/dL (8.4-10.5)
[2018-02-22] MEDS ORDERED: Magnesium 2 gm/50 ml NS 2 GM/50 ML BAG IVPB ONE (06:02)
--- NOTE | 2018-02-22 08:22 | US ---
PROCEDURE: Bilateral carotid artery duplex US HISTORY: Carotid stenosis PHYSICIAN(S): Oscar Berkowitz MD. TECHNIQUE: Duplex sonography and color-flow Doppler were used to evaluate the carotid bifurcations and limited segments of the vertebral arteries bilaterally. FINDINGS: The exam is limited by body habitus and breathing. The vertebral arteries were not visualized related to technique. There is mild smooth heterogeneous plaque noted at the carotid bifurcations bilaterally. The peak systolic velocity in the proximal right internal carotid artery is 89 cm/sec. This corresponds to a 20 to 39% proximal right ICA stenosis. Normal systolic velocities are noted in the proximal right external carotid artery. There is antegrade flow in the right vertebral artery. The peak systolic velocity in the proximal left internal carotid artery is 59 cm/sec. This corresponds to a 20 to 39% proximal left ICA stenosis. Normal systolic velocities are noted in the proximal left external carotid artery. There is antegrade flow in the left vertebral artery. IMPRESSION: 1. Bilateral 20-39% proximal ICA stenoses. 2. The vertebral arteries were not visualized.
[2018-02-22] MEDS: Meropenem IV 1 gm in NS 50 ML IVPB SCH ×2 (09:30→21:43)
[2018-02-22] MEDS: Linezolid 600 mg in D5W 300 ml 600 MG/300 ML BAG IVPB SCH ×2 (09:30→21:43)
--- NOTE | 2018-02-22 11:18 | PN ---
DATE: 02/22/2018 SUBJECTIVE: Patient is in the ICU Critical Care unit. Patient was admitted after having had treatment for a stroke in the Emergency Room. The patient's history is significant in that he has history of obesity. He has had bariatric surgery. Patient has atherosclerotic heart disease, congestive heart failure, atrial fibrillation. Patient's condition in the ICU is still critical and unstable. Patient is restless, seemed to be in a state of altered mental impairment. PHYSICAL EXAMINATION: VITAL SIGNS: The pulse is 110, blood pressure is 157/80, his O2 sat is 90%. He is on an oxygen mask. LUNGS: Bilateral rhonchi. No localizing signs. HEART: Atrial fibrillation with moderate ventricular response. ABDOMEN: Obesity present. Abdomen is soft, nontender. CENTRAL NERVOUS SYSTEM: Patient had a stroke with aphasia and weakness of the right side of the body. LABORATORY WORK: The hemoglobin is 12.7. His chemistry, sodium is 141, potassium is 3.3., patient's calcium 8.2, sugar is 102. His creatinine 2. BUN is 20. He has renal insufficiency. MEDICATIONS: Patient's list of medications consists of Cardene IV, the patient is getting that for control of blood pressure; Lasix; patient is on meropenem; Zyvox; pantoprazole. He is under the care of neurologist. Patient is getting critical care supervision. We will continue current management. Overall, prognosis is guarded. Condition is stable vital signs, but unstable clinical condition. Jillian Dent MD MTDD
--- NOTE | 2018-02-22 12:27 | PN ---
DATE: 02/22/2018 SUBJECTIVE: The patient is in bed, in no acute distress, nontoxic. No fevers and he appears to be comfortable, but weak. PHYSICAL EXAMINATION: VITAL SIGNS: Temperature is 98, pulse of 105, blood pressure is 160/80, respiratory rate of 20. HEENT: Unremarkable. NECK: Supple. LUNGS: Have decreased breath sounds. HEART: Normal S1, S2. ABDOMEN: Soft, nontender. LABORATORY DATA: Laboratory examination reveals a white count of 9.7, hemoglobin of 12, platelets of 165. Chemistries reveals a BUN of 20, creatinine of 2 and toxicology is noted. Microbiology reveals the leg cultures pending. Review of orders. Review of the blood cultures are pending. Wound cultures are pending and the patient is on meropenem and linezolid. The patient had an echo yesterday. The results are noted. ASSESSMENT AND PLAN: A 63-year-old male with chronic systolic congestive heart failure, ejection fraction of 25%, chronic atrial fibrillation, chronic lymphedema, chronic venous stasis, chronic obstructive lung disease, hypertension, history of gastric bypass surgery, history of left knee surgery, super morbid obesity, body mass index of greater than 52, admitted with a right leg infected venous stasis ulcer and recent cultures growing Methicillin-resistant Staphylococcus aureus and Pseudomonas with acute cerebrovascular accident, right-sided weakness, status post TPA infusion with probable exacerbation of congestive heart failure with ejection fraction of 25% on top of chronic congestive heart failure with chronic lymphedema and chronic venous stasis, on Zyvox, meropenem day #2. Pending pancultures and clinical response. We will follow closely with you. This patient is with sepsis secondary to the skin and soft tissue infection of the right leg infected venous stasis ulcers with Methicillin-resistant Staphylococcus aureus and Pseudomonas growing recently. Minh Padilla MD
--- NOTE | 2018-02-22 13:50 | PN ---
DATE: 02/22/2018 SUBJECTIVE: A 63-year-old morbidly obese, nonverbal and incoherent patient seen in CCU for continued evaluation and management of bilateral venous stasis, lower leg ulcerations. The patient's vital signs revealed pulse rate of 68, blood pressure of 169/81. Laboratory findings reveal white count of 9.7, hemoglobin of 12.7, hematocrit of 39.4, platelet count of 165. Microbiology report of the right and left leg reveals gram-negative rods and Staphylococcus aureus growth. OBJECTIVE: Nonpalpable pedal pulses noted bilaterally secondary to lower extremity bilateral lymphedema. Capillary filling time is delayed on all the digits. Temperature gradient is warm from proximal to distal. Unable to assess the patient's neurological status as he is nonresponsive and uncommunicative. There is noted to be a large venous stasis ulceration on the right lower extremity at the distal lateral aspect of the lower leg that measures approximately 6 cm x 5 cm. The wound remains relatively superficial and primarily granular with moderate serous drainage. There is no purulence. The wound does not probe to tendon and bone. There is no underlying abscess formation. Left lower extremity presents with an anterior venous stasis ulceration as well as a posterior venous stasis ulceration. Both of the ulcerations measure approximately 0.5 x 0.5 x 0.1 cm. Base is primarily granular. There is noted to be minimal serous drainage. There is no purulence noted to suggest underlying abscess formation. ASSESSMENT: A 63-year-old seen in Critical Care Unit for bilateral venous stasis ulcerations with the right being worse than the left. PLAN: The patient was seen and evaluated. Both lower legs were cleansed with normal sterile saline and application of Maxorb silver and a two-layer compressive dressing was applied to the right lower leg and application of Bactroban and Optifoam were applied to the 2 ulcerations on the left lower leg. There is no plan for surgical intervention at this time. The patient will be seen daily while in-house. Mynor Byers DPM
--- NOTE | 2018-02-22 14:05 | CARD ---
APPROVED REPORT EKG Measurement Heart [id number] <Conclusion> Atrial fibrillation Nonspecific T wave abnormality, probably digitalis effect Prolonged QT Abnormal ECG
--- NOTE | 2018-02-22 15:18 | PN ---
DATE: 02/22/2018 CARDIOLOGY FOLLOWUP GENERAL: The patient is in no acute distress. PHYSICAL EXAMINATION: VITAL SIGNS: Blood pressure 169/81, the heart rate is in the 60s. NECK: Negative JVD. LUNGS: Without rales. HEART: Reveals S1, S2. EXTREMITIES: Without edema. Repeat echocardiogram reveals an ejection fraction of 50%. There is no evidence for ASD. There is severe pulmonary hypertension. IMPRESSION: 1. Cerebrovascular accident. 2. No dilated cardiomyopathy found on this echocardiogram. 3. Pulmonary hypertension. 4. Systemic hypertension. PLAN: Given these findings, we will continue IN the ICU, monitoring his pressure with IV antihypertensive medications. Oscar Andres MD
[2018-02-22 16:45] LABS: ALB/GLOB RATIO 1.1 (1.1-1.8); ALBUMIN 3.5 g/dL (3.0-4.8); CALCIUM 7.6 mg/dL (8.4-10.5)
[2018-02-22] MEDS ORDERED: Magnesium Sulfate 2 gm/50 ml 2 GM/50 ML BAG IVPB ONE (16:58)
--- NOTE | 2018-02-23 05:59 | CP.PCM.PN ---
Subjective - Date & Time of Evaluation Date of Evaluation: 02/23/18 Time of Evaluation: 05:54 - Subjective Subjective: Mr. Damon was seen and examined at the bedside in ICU. He remains non-verbal, aphrasic, grunts as response to tactile stimuli, with episode of restlessness moves his left side spontaneously with right side weakness. Sensation remains intact, able to withdraw from pain stimuli. He is able to follow some commands such as opening his mouth, sticking out his tongue, squeezing his left hand. Repeat CT scan done 02/21 showed no acute findings. He remains on NPO with nasal cannula for oxygen support. Echocardiogram showed LV systolic function is borderline and RV systolic function is reduced. Objective - Vital Signs/Intake and Output Vital Signs (last 24 hours): Temp Pulse Resp BP Pulse Ox 98.5 F 101 H 35 H 168/80 H 99 02/23/18 05:19 02/23/18 05:10 02/23/18 03:30 02/23/18 05:10 02/23/18 05:10 Intake and Output: 02/22/18 02/23/18 18:59 06:59 Intake Total 1000 Output Total 1350 Balance -350 - Medications Medications: Current Medications Aspirin (Aspirin Supp) 300 mg RC DAILY SACHIN Furosemide (Lasix) 60 mg IVP Q12 SACHIN Last Admin: 02/22/18 21:41 Dose: 60 mg Nicardipine HCl (Cardene Iv Premix) 20 mg in 200 mls @ 50 mls/hr IV .Q4H PRN; Protocol; 5 MG/HR PRN Reason: TITRATE PER MD ORDER Last Titration: 02/21/18 12:30 Dose: 0 mg/hr, 0 mls/hr Linezolid (Zyvox 600mg/300ml D5w) 600 mg in 300 mls @ 200 mls/hr IVPB Q12 SACHIN PRN Reason: Protocol Stop: 02/28/18 10:46 Last Admin: 02/22/18 21:43 Dose: 200 mls/hr Meropenem (Merrem Iv 1 Gm Premix) 50 mls @ 100 mls/hr IVPB Q12 SACHIN PRN Reason: Protocol Last Admin: 02/22/18 21:43 Dose: 100 mls/hr Pantoprazole Sodium (Protonix Inj) 40 mg IVP DAILY SACHIN Last Admin: 02/22/18 09:30 Dose: 40 mg - Labs Labs: 02/22/18 04:20 02/22/18 16:21 PT 17.3 SECONDS (9.4-12.5) H 02/20/18 17:49 INR 1.50 (0.93-1.08) H 02/20/18 17:49 APTT 31.6 Seconds (25.1-36.5) 02/20/18 17:49 - Constitutional Appears: No Acute Distress - Head Exam Head Exam: NORMAL INSPECTION - Eye Exam Pupil Exam: PERRL Additional comments: sluggish - Neurological Exam Neurological Exam: Awake Neuro motor strength exam: Left Upper Extremity: 5, Right Upper Extremity: 2/1, Left Lower Extremity: 5, Right Lower Extremity: 2/1 Additional comments: awake, able to follow simple commands, sensation remains intact. Assessment and Plan (1) CVA (cerebral vascular accident) Assessment & Plan: Case discussed with Dr. Bay, continue current medical, physical, occupational , and speech therapies. MRI of the brain is not possible to patient's weight. EEG result pending. Recommend depakote 1000 mg IV for one dose to alleviate agitation and possible seizure then Depakote 500 mg IV q 12 hours. Aspirin 300 mg [place] daily. Recommend normotension, normothermic, head of the head elevated at least 30 degrees angle, glycemic control. Status: Acute
[2018-02-23] MEDS ORDERED: Valproate 1,000 MG in Sodium Chloride 0.9% 100 ML IVPB ONE (06:07)
[2018-02-23 06:08] LABS: HEMOGLOBIN 13.8 g/dL (14.0-18.0); MEAN CORPUSCULAR HEMOGLOBIN 29.9 pg (25.0-35.0); MEAN CORPUSCULAR HGB CONC 32.5 g/dl (31.0-37.0); MEAN PLATELET VOLUME 9.3 fl (7.0-11.0); RBC 4.62 10^6/uL (3.5-6.1); RED CELL DISTRIBUTION WIDTH 14.8 % (11.5-14.5); WHITE BLOOD COUNT 9.5 10^3/ul (4.5-11.0)
[2018-02-23 06:23] LABS: ALB/GLOB RATIO 1.2 (1.1-1.8); CALCIUM 8.2 mg/dL (8.4-10.5)
[2018-02-23] MEDS ORDERED: Dexmedetomidine 400mcg/100mL 400 MCG/100 ML BOTTLE IV PRN (08:37)
--- NOTE | 2018-02-23 09:51 | CT ---
PROCEDURE: CT HEAD WITHOUT CONTRAST. HISTORY: CVA COMPARISON: 02/21/2018. CT head TECHNIQUE: Axial computed tomography images were obtained through the head/brain without intravenous contrast. Coronal and sagittal reconstructed images. Radiation dose: Total exam DLP = 1762.07 mGy-cm. This CT exam was performed using one or more of the following dose reduction techniques: Automated exposure control, adjustment of the mA and/or kV according to patient size, and/or use of iterative reconstruction technique. FINDINGS: HEMORRHAGE: No intracranial hemorrhage. BRAIN: No mass effect or edema. Cortical atrophy, periventricular small vessel disease. VENTRICLES: Unremarkable. No hydrocephalus. CALVARIUM: Unremarkable. PARANASAL SINUSES: Unremarkable as visualized. No significant inflammatory changes. MASTOID AIR CELLS: Unremarkable as visualized. No inflammatory changes. OTHER FINDINGS: None. IMPRESSION: No acute intracranial abnormalities. No significant findings to account for the clinical presentation. No significant interval change compared to the prior examination(s). Limitations of the current examination: Patient related motion induced artifact.
[2018-02-23] MEDS: Linezolid 600 mg in D5W 300 ml 600 MG/300 ML BAG IVPB SCH ×2 (10:23→22:15)
[2018-02-23] MEDS: Meropenem IV 1 gm in NS 50 ML IVPB SCH ×2 (10:23→21:37)
--- NOTE | 2018-02-23 12:48 | PN ---
DATE: 02/23/2018 SUBJECTIVE: The patient is in bed, seen earlier today in 129, bed 7. The patient was agitated overnight, was medicated due to his agitation. He has had no fevers. PHYSICAL EXAMINATION: VITAL SIGNS: Temperature is 98, blood pressure is 140/60, respiratory rate of 18, heart rate of 130. HEENT: Examination of HEENT is unremarkable. NECK: Supple. LUNGS: Have decreased breath sounds. HEART: Normal S1, S2. ABDOMEN: Soft, nontender. LABORATORY DATA: Laboratory examination reveals the patient's white count is 9.5, hemoglobin of 13, platelets of 152. Chemistries reveals a BUN of 17, creatinine of 1.5. The microbiology reveals the leg cultures are noted with a Staph aureus and a gram-negative ankita. Further identification and sensitivity is pending. The blood cultures have no growth. Review of orders reveals the patient to be on meropenem and linezolid. ASSESSMENT AND PLAN: This is a 63-year-old male with chronic systolic congestive heart failure, ejection fraction of 25%, chronic atrial fibrillation, chronic lymphedema, venous stasis and chronic obstructive lung disease, hypertension, history of gastric bypass, history of left knee surgery, super morbid obesity with a body mass index of greater than 52, admitted with a right leg cellulitis and stasis with the recent cultures with methicillin-resistant Staphylococcus aureus and Pseudomonas, currently with a Staphylococcus and a gram-negative ankita. The patient with acute cerebrovascular accident, right-sided weakness, status post t-PA infusion and probable exacerbation of congestive heart failure with ejection fraction of 25% on top of chronic congestive heart failure with chronic lymphedema, on Zyvox, meropenem day #3 in a patient with sepsis secondary to skin and skin soft tissue infection with a right leg venous stasis. Awaiting for identification of the gram-negative ankita and sensitivity of the Staphylococcus aureus. We will follow closely with you. Overall prognosis is poor in this patient with pulmonary hypertension and systemic hypertension. Minh Padilla MD
--- NOTE | 2018-02-23 13:32 | PN ---
DATE: 02/23/2018 MASTER PLUMBER NOTE SUBJECTIVE: The patient is resting in bed. At times, does get agitated. Continues to have O2 support via nasal cannula. O2 saturation is 98%. Vital signs are pretty much stable. The patient is on Cardene drip for blood pressure control. It has been recommended by Neuro that the patient for agitation be put on Precedex. The patient is scheduled for MRI of the head today, if we can stabilize his episodes of agitation. PHYSICAL EXAMINATION: VITAL SIGNS: Notes that his temperature is 98.5, pulse is 77, respirations of 20 and BP is 148/66. HEENT: Head: Atraumatic, normocephalic. Eyes: No change. Ear, nose and throat seems to be within normal limits. NECK: Supple. No JVD. No thyroid enlargement or lymph nodes. HEART: Regular rate and rhythm. Normal S1, S2. LUNGS: Reveal decreased breath sounds at the bases. ABDOMEN: Soft, but obese. Decreased bowel sounds. GENITALIA: Deferred. RECTAL: Deferred. MUSCULOSKELETAL: No joint deformities. EXTREMITIES: Reveal positive lower extremity edema with hyperpigmentation in the lower extremities around the ankles and feet and lower leg. NEUROLOGICAL: He continues to have a flaccid right side and expressive aphasia. LABORATORY DATA: As far as labs, the patient's white count is 9.5, hemoglobin is 13.8, hematocrit is 42.5 with platelets of 152,000. Sodium is 144, potassium 3.3, chloride 101, CO2 of 30 with a BUN of 17, creatinine of 1.5 and a glucose of 105. IMPRESSION: This patient has acute ischemic stroke with flaccid right-sided weakness as well as expressive aphasia. Has a history of asthma, possible obstructive sleep apnea, morbid obesity, congestive heart failure, atrial fibrillation, hypertension, renal insufficiency and chronic lymphedema. PLAN: As far as our plan, we will continue with O2 support. The patient will be started on Precedex. We will try and get the MRI today. The patient is on aspirin, Lasix and meropenem. Continues to be on Cardene and Protonix as well. We will continue to treat aggressively along with the other consultants and the primary care doctor. Avery Hopkins MD
--- NOTE | 2018-02-23 13:39 | PN ---
DATE: 02/23/2018 SUBJECTIVE: The patient is in the Critical Care Unit. The patient was admitted after having a stroke. He was treated with t-PA in the emergency room. He has right-sided weakness, aphasia. The patient has significant medical history. He has had morbid obesity for which he was treated with bariatric surgery, but he regained his weight back. He has atrial fibrillation with atherosclerotic heart disease, chronic lung disease. The patient has history of lymphedema of the legs, chronic with ulceration. The patient is getting wound care by Dr. Sebastian. PHYSICAL EXAMINATION: GENERAL: The patient is restless. He has been sedated with Ativan. VITAL SIGNS: Pulse is 77, blood pressure 148/86, respirations 20 per minute. The patient is on oxygen by nasal cannula. LUNGS: Breath sounds diminished. Crepitations are heard scattered. HEART: Atrial fibrillation. ABDOMEN: Soft, distended. There are no local signs. The patient has evidence of scars from previous surgery. 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 LABORATORY DATA: His hemoglobin is 13.8. Chemistry: The potassium is 3.3. His blood sugar is 105. He has no evidence of diabetes by history or on current observation. MEDICATIONS: The patient's medication list consists of aspirin. The patient is on Cardene by drip, intravenous, parenteral. The patient is on Lasix. The patient is on meropenem, Zyvox and pantoprazole. ASSESSMENT AND PLAN: His condition is still unstable. He is critically ill. The patient's overall prognosis is guarded. Jillian Dent MD MTDJosé Luis
--- NOTE | 2018-02-23 16:29 | PN ---
DATE: 02/23/2018 CARDIOLOGY FOLLOWUP SUBJECTIVE: The patient remains in the ICU. He is awake. He is agitated due to his neurologic deficits. PHYSICAL EXAMINATION: VITAL SIGNS: Blood pressure is 129/60, the heart rate in the 70s. NECK: Negative JVD. LUNGS: Decreased breath sounds. HEART: With S1, S2. EXTREMITIES: Without edema. LABORATORY DATA: Hemoglobin is 13.8. BUN and creatinine are unremarkable. Glucose is 118. IMPRESSION: 1. Cerebrovascular accident. 2. Treated with thrombolysis. 3. Hypertension. 4. Agitation. 5. Pulmonary hypertension. 6. Normal left ventricular function. PLAN: Given these findings, the patient is hemodynamically stable. Mild sedation might be helpful for the patient's agitation. Oscar Andres MD
[2018-02-24 01:19] LABS: BLOOD UREA NITROGEN 18 mg/dL (7-21); CALCIUM 8.1 mg/dL (8.4-10.5); GFR AFRICAN-AMERICAN > 60; GFR NON-AFRICAN AMERICAN 56
[2018-02-24 06:29] LABS: BASO # 0.01 K/mm3 (0.0-2.0); BASO % 0.2 % (0.0-3.0); EOS # 0.1 (0.0-0.7); GRAN # 4.74 (1.4-6.5); GRAN % 71.3 % (50.0-68.0); HEMOGLOBIN 13.2 g/dL (14.0-18.0); LYMPH # 1.2 (1.2-3.4); LYMPH % 17.9 % (22.0-35.0); MEAN CORPUSCULAR HEMOGLOBIN 29.3 pg (25.0-35.0); MEAN CORPUSCULAR HGB CONC 31.8 g/dl (31.0-37.0); MEAN PLATELET VOLUME 9.7 fl (7.0-11.0); MONO # 0.6 (0.1-0.6); MONO % 8.6 % (1.0-6.0); RBC 4.51 10^6/uL (3.5-6.1); RED CELL DISTRIBUTION WIDTH 14.7 % (11.5-14.5); WHITE BLOOD COUNT 6.6 10^3/ul (4.5-11.0)
[2018-02-24 06:48] LABS: ALB/GLOB RATIO 1.1 (1.1-1.8); ALBUMIN 3.4 g/dL (3.0-4.8); CALCIUM 8.2 mg/dL (8.4-10.5)
--- NOTE | 2018-02-24 08:17 | CP.PCM.PN ---
<Negrito Andrea - Last Filed: 02/24/18 15:15> Subjective - Date & Time of Evaluation Date of Evaluation: 02/24/18 Time of Evaluation: 07:30 - Subjective Subjective: Negrito Andrea DO PGY1 - IM Progress Note for Dr. Brown Patient seen and examined at bedside. Overnight, patient was complaining of dysuria, and UA was collected and sent per nursing staff. Patinet was also bradycardic overnight while on precedex. Today, patient is asleep, but easily arousable, responding to yes/no questions by giving thumbs up/down, and obeying simple commands. He denies pain. He is tolerating a diet. ROS is limited by aphasia. Objective - Vital Signs/Intake and Output Vital Signs (last 24 hours): Temp Pulse Resp BP Pulse Ox 97.4 F L 50 L 26 H 156/86 H 96 02/24/18 04:00 02/24/18 06:47 02/23/18 11:44 02/24/18 06:00 02/24/18 06:47 Intake and Output: 02/24/18 02/24/18 06:59 18:59 Intake Total 567.3 7.3 Output Total 500 Balance 67.3 7.3 - Medications Medications: Current Medications Acetaminophen (Tylenol 325mg Tab) 650 mg PO Q4H PRN PRN Reason: pain and fever Last Admin: 02/23/18 20:00 Dose: 650 mg Aspirin (Aspirin Supp) 300 mg RC DAILY [facility] Last Admin: 02/23/18 10:21 Dose: 300 mg Furosemide (Lasix) 60 mg IVP Q12 [facility] Last Admin: 02/23/18 21:36 Dose: 60 mg Nicardipine HCl (Cardene Iv Premix) 20 mg in 200 mls @ 50 mls/hr IV .Q4H PRN; Protocol; 5 MG/HR PRN Reason: TITRATE PER MD ORDER Last Titration: 02/21/18 12:30 Dose: 0 mg/hr, 0 mls/hr Linezolid (Zyvox 600mg/300ml D5w) 600 mg in 300 mls @ 200 mls/hr IVPB Q12 [facility]IN PRN Reason: Protocol Stop: 02/28/18 10:46 Last Admin: 02/23/18 22:15 Dose: 200 mls/hr Meropenem (Merrem Iv 1 Gm Premix) 50 mls @ 100 mls/hr IVPB Q12 [facility]IN PRN Reason: Protocol Last Admin: 02/23/18 21:37 Dose: 100 mls/hr Dexmedetomidine HCl (Precedex 400mcg/100ml) 400 mcg in 100 mls @ 7.303 mls/hr IV .[id number] PRN; Protocol; 0.2 MCG/KG/HR PRN Reason: Agitation Last Titration: 02/24/18 07:30 Dose: 0 mcg/kg/hr, 0 mls/hr Pantoprazole Sodium (Protonix Inj) 40 mg IVP DAILY [facility] Last Admin: 02/23/18 10:21 Dose: 40 mg - Labs Labs: 02/24/18 05:30 02/24/18 05:30 PT 17.3 SECONDS (9.4-12.5) H 02/20/18 17:49 INR 1.50 (0.93-1.08) H 02/20/18 17:49 APTT 31.6 Seconds (25.1-36.5) 02/20/18 17:49 - Constitutional Appears: Non-toxic, No Acute Distress - Head Exam Head Exam: ATRAUMATIC, NORMOCEPHALIC - Eye Exam Eye Exam: EOMI Additional comments: Right sided ptosis - ENT Exam ENT Exam: Mucous Membranes Moist - Neck Exam Neck Exam: Normal Inspection - Respiratory Exam Respiratory Exam: Clear to Ausculation Bilateral - Cardiovascular Exam Cardiovascular Exam: RRR. absent: Bradycardia, Tachycardia - GI/Abdominal Exam GI & Abdominal Exam: Soft. absent: Distended, Firm, Guarding, Rigid, Tenderness - Extremities Exam Additional comments: RLE with ansley wrap from 02/23, appears CDI LLE with chronic venous stasis changes and lymphedema; small optifoam dressing over anterior sheppard since 02/23 appears CDI No calf tenderness - Neurological Exam Neuro motor strength exam: Left Upper Extremity: 5, Right Upper Extremity: 3, Left Lower Extremity: 5, Right Lower Extremity: 4 Additional comments: Asleep, easily arousable, obeying simple commands Dysarthric, cannot produce any understandable words Right sided facial droop/weakness No clonus b/l - Psychiatric Exam Additional comments: Cannot assess - Skin Skin Exam: Dry, Intact Assessment and Plan - Assessment and Plan (Free Text) Assessment: This is a 63 year old male with PMHx asthma, morbid obesity, CARMELA, CHF, A-fib on coumadin, renal insufficiency, chronic lymphedema, medication non-compliance who presented with right sided weakness and dysarthria. He was given tPA at approximately 18:30 on 02/20/18. Patient remains in ICU s/p tPA, still dysarthric Plan: 1. Acute CVA s/p tPA -Initial Head CT showed multifocal chronic lacunes in the bilateral basal ganglia; no bleed; interval acute or subacute infarct can't be excluded -Multiple repeat head CT's show no change -MRI is ordered, but patient has been agitated, will not tolerate exam; he was started on precedex for agitation yesterday, but was bradycardic overnight, and is now off drip, does not appear agitated currently; vitals stable -Being monitored in the ICU s/p tPA for close BP monitoring; still having occasional episodes of hypertension, though now off cardene drip -Lipid panel, A1c, TSH, and free t4 WNL -Venous duplex lower extremities done, but not yet read -Echo done, LVEF 50%, no thrombus, no ASD -Continue PT, OT, and ST -Cardiology consulted, appreciate recs -Neuro consulted, appreciate recs 2. Leg Cellulitis (MRSA and Pseudomonas) -Continue zyvox and merrem per ID -No leukocytosis, no fever -Podiatry consulted for local wound care -ID consulted, appreciate recs 3. h/o CHF -Does not appear fluid overloaded -Continue lasix 4. h/o A-fib on coumadin -Rate controlled -Will discuss with neuro and cardio to restart anticoagulation 5. h/o renal insufficiency -Patient presented with apparent TROY -Creatinine trended down, now stable, wnl 6. h/o asthma -Decreased breath sounds in all lung saini, with faint wheezing -No apparent shortness of breath -Start scheduled and PRN duoneb -Start mucomyst 7. Dysuria -Patient was not complaining of dysuria on exam -UA and UCx was ordered overnight; f/u results DVT Ppx: SCDs contraindicated due to cellulitis; will discuss with neuro for chemoprophylaxis s/p tPA GI Ppx: Protonix 40 IVP - will switch to PO if tolerating PO Discussed with Dr. Brown <Rashad Brown U - Last Filed: 02/26/18 15:47> Objective - Vital Signs/Intake and Output Vital Signs (last 24 hours): Temp Pulse Resp BP Pulse Ox 97.8 F 75 20 149/69 97 02/26/18 11:57 02/26/18 11:57 02/26/18 11:57 02/26/18 11:57 02/26/18 06:00 Intake and Output: 02/26/18 02/26/18 06:59 18:59 Intake Total 300 Output Total 1600 Balance -1300 - Medications Medications: Current Medications Acetaminophen (Tylenol 325mg Tab) 650 mg PO Q4H PRN PRN Reason: pain and fever Last Admin: 02/23/18 20:00 Dose: 650 mg Acetylcysteine (Acetylcysteine 20%) 4 ml IH BIDRESP [facility]ACHIN Last Admin: 02/26/18 07:25 Dose: 4 ml Albuterol/Ipratropium (Duoneb 3 Mg/0.5 Mg (3 Ml) Ud) 3 ml IH [id number] SACHIN Last Admin: 02/26/18 13:12 Dose: 3 ml Albuterol/Ipratropium (Duoneb 3 Mg/0.5 Mg (3 Ml) Ud) 3 ml IH Q2H PRN PRN Reason: Shortness of Breath Apixaban (Eliquis) 5 mg PO BID [facility] PRN Reason: Protocol Aspirin (Aspirin Chewable) 81 mg PO DAILY [facility] Last Admin: 02/26/18 10:22 Dose: 81 mg Atorvastatin Calcium (Lipitor) 40 mg PO DIN [facility] Last Admin: 02/25/18 17:08 Dose: 40 mg Bisacodyl (Dulcolax) 10 mg RC Q48H [facility] Last Admin: 02/25/18 09:00 Dose: 10 mg Cholecalciferol (Vitamin D) 2,000 intlu PO DAILY [facility] Last Admin: 02/26/18 10:23 Dose: 2,000 intlu Furosemide (Lasix) 40 mg IVP DAILY [facility] Hydromorphone HCl (Dilaudid) 1 mg IVP Q4H PRN PRN Reason: Pain, moderate (4-7) Last Admin: 02/26/18 01:38 Dose: 1 mg Linezolid (Zyvox 600mg/300ml D5w) 600 mg in 300 mls @ 200 mls/hr IVPB Q12 SACHIN PRN Reason: Protocol Stop: 02/28/18 10:46 Last Admin: 02/26/18 10:24 Dose: 200 mls/hr Meropenem (Merrem Iv 1 Gm Premix) 50 mls @ 100 mls/hr IVPB Q12 SACHIN PRN Reason: Protocol Last Admin: 02/26/18 12:45 Dose: 100 mls/hr Levothyroxine Sodium (Synthroid) 25 mcg PO DAILY [facility] Last Admin: 02/26/18 10:24 Dose: 25 mcg Losartan Potassium (Cozaar) 50 mg PO DAILY [facility] Metoprolol Tartrate (Lopressor) 50 mg PO BID [facility] Last Admin: 02/26/18 10:25 Dose: 50 mg Pantoprazole Sodium (Protonix Ec Tab) 40 mg PO ACB [facility] Last Admin: 02/26/18 10:24 Dose: 40 mg Polyethylene Glycol (Miralax) 17 gm PO BID [facility] Last Admin: 02/26/18 10:24 Dose: 17 gm Potassium Chloride (K-Dur 20 Meq Er Tab) 20 meq PO DAILY [facility] Last Admin: 02/26/18 12:44 Dose: Not Given Quetiapine Fumarate (Seroquel) 50 mg PO HS [facility] PRN Reason: Protocol Last Admin: 02/25/18 21:45 Dose: 50 mg Sennosides (Senokot Tab) 17.2 mg PO HS [facility] Last Admin: 02/25/18 21:49 Dose: 17.2 mg Tamsulosin HCl (Flomax) 0.4 mg PO DAILY [facility] Last Admin: 02/26/18 10:24 Dose: 0.4 mg - Labs Labs: 02/26/18 05:30 02/26/18 05:30 PT 16.5 SECONDS (9.4-12.5) H 02/26/18 05:30 INR 1.42 (0.93-1.08) H 02/26/18 05:30 APTT 38.4 Seconds (25.1-36.5) H 02/26/18 05:30 Attending/Attestation - Attestation I have personally seen and examined this patient.: Yes I have fully participated in the care of the patient.: Yes I have reviewed all pertinent clinical information, including history, physical exam and plan: Yes Notes (Text): Please see/read my dictated notes.
--- NOTE | 2018-02-24 09:13 | PN ---
DATE: 02/22/2018 PHOTONICS ENGINEERING TECHNICIAN NOTE SUBJECTIVE: Patient is resting in bed, morbidly obese man with O2 via nasal cannula as well as face mask. The patient, continues to be aphasic with right-sided flaccid weakness. Patient is on Cardene drip for blood pressure control. PHYSICAL EXAMINATION: VITAL SIGNS: His temperature is 98, pulse is 111, respirations 18, and BP is 167/80. SKIN: Warm and dry. HEENT: Head atraumatic, normocephalic. Eyes, no change. Ear, nose and throat seemed to be within normal limits. NECK: Supple. No JVD. No thyroid enlargement or lymph nodes. HEART: Has regular rate and rhythm. Normal S1, S2. Note, looking at the monitor at this moment, his heart rate has come down to 88. LUNGS: Reveal decreased breath sounds at the bases. ABDOMEN: Soft. Decreased bowel sounds and obese. GENITALIA AND RECTAL: Deferred. MUSCULOSKELETAL: No joint deformities. EXTREMITIES: Reveal hyperpigmentation from peripheral vascular disease with 1 to 2 plus edema. NEUROLOGICALLY: The patient continues to have flaccid weakness on the right side and aphasia. LABORATORY DATA: As far as his laboratories are concerned, his white count is 9.7, hemoglobin of 12.7, hematocrit 39.4 with platelets of 165,000. Sodium is 141, potassium 3.3, chloride 103, CO2 of 28 with a BUN of 20, creatinine of 2 and a glucose of 102. IMPRESSION: As far as my impression, this patient had ischemic stroke and is post TPA and has resulting aphasia as well as flaccid right-sided weakness. He has a history of obstructive sleep apnea and congestive heart failure with ejection fraction of approximately 40%. Patient is morbidly obese with history of atrial fibrillation as well as hypertension and renal insufficiency. PLAN: As far as our plan, patient is scheduled for MRI as per Neuro. He is on Lasix as well as meropenem, Cardene, Protonix. We will continue to follow closely and treat aggressively along with the other consultants and the primary care doctor. Avery Hopkins MD
[2018-02-24] MEDS ORDERED: Magnesium Sulfate 2 GM in Sodium Chloride 0.9% 100 ML IVPB ONE (09:16)
[2018-02-24] MEDS ORDERED: Magnesium 2 gm/50 ml NS 2 GM/50 ML BAG IVPB ONE (09:19)
[2018-02-24] MEDS: Meropenem IV 1 gm in NS 50 ML IVPB SCH ×2 (10:44→22:00)
[2018-02-24] MEDS: Linezolid 600 mg in D5W 300 ml 600 MG/300 ML BAG IVPB SCH ×2 (10:45→22:45)
--- NOTE | 2018-02-24 10:50 | CP.PCM.PN ---
Subjective - Date & Time of Evaluation Date of Evaluation: 02/24/18 Time of Evaluation: 10:49 - Subjective Subjective: Mr. Damon was seen and examined at the bedside in ICU. He remains non-verbal, aphrasic, awake, uses non verbal cue to communicate such as nodding or shaking his head. He denies any headache, dizziness.Sensation remains intact. He is able to follow some commands such as opening his mouth, sticking out his tongue , squeezing his left hand. with minimal vertical movement noted in his right upper extremity and right facial droop. According to the staff, he was able to stand at the bedside with minimal assistance. He had episode of restlessness and agitation yesterday was on precedex drip, now its off. There was no untoward events overnight. Objective - Vital Signs/Intake and Output Vital Signs (last 24 hours): Temp Pulse Resp BP Pulse Ox 97.4 F L 50 L 26 H 162/90 H 96 02/24/18 04:00 02/24/18 06:47 02/23/18 11:44 02/24/18 10:42 02/24/18 06:47 Intake and Output: 02/24/18 02/24/18 06:59 18:59 Intake Total 567.3 7.3 Output Total 500 Balance 67.3 7.3 - Medications Medications: Current Medications Acetaminophen (Tylenol 325mg Tab) 650 mg PO Q4H PRN PRN Reason: pain and fever Last Admin: 02/23/18 20:00 Dose: 650 mg Aspirin (Aspirin Chewable) 81 mg PO DAILY [facility] Furosemide (Lasix) 60 mg IVP Q12 SACHIN Last Admin: 02/24/18 10:42 Dose: 60 mg Nicardipine HCl (Cardene Iv Premix) 20 mg in 200 mls @ 50 mls/hr IV .Q4H PRN; Protocol; 5 MG/HR PRN Reason: TITRATE PER MD ORDER Last Titration: 02/21/18 12:30 Dose: 0 mg/hr, 0 mls/hr Linezolid (Zyvox 600mg/300ml D5w) 600 mg in 300 mls @ 200 mls/hr IVPB Q12 [facility]ACHIN PRN Reason: Protocol Stop: 02/28/18 10:46 Last Admin: 02/24/18 10:45 Dose: 200 mls/hr Meropenem (Merrem Iv 1 Gm Premix) 50 mls @ 100 mls/hr IVPB Q12 [facility]ACHIN PRN Reason: Protocol Last Admin: 02/24/18 10:44 Dose: 100 mls/hr Dexmedetomidine HCl (Precedex 400mcg/100ml) 400 mcg in 100 mls @ 7.303 mls/hr IV .[id number] PRN; Protocol; 0.2 MCG/KG/HR PRN Reason: Agitation Last Titration: 02/24/18 07:30 Dose: 0 mcg/kg/hr, 0 mls/hr Pantoprazole Sodium (Protonix Inj) 40 mg IVP DAILY [facility] Last Admin: 02/24/18 10:44 Dose: 40 mg - Labs Labs: 02/24/18 05:30 02/24/18 05:30 PT 17.3 SECONDS (9.4-12.5) H 02/20/18 17:49 INR 1.50 (0.93-1.08) H 02/20/18 17:49 APTT 31.6 Seconds (25.1-36.5) 02/20/18 17:49 - Constitutional Appears: No Acute Distress - Head Exam Head Exam: NORMAL INSPECTION - Neurological Exam Neurological Exam: Awake Neuro motor strength exam: Left Upper Extremity: 5, Right Upper Extremity: 2/1, Left Lower Extremity: 5, Right Lower Extremity: 4 Additional comments: neurological improved from previous examination, no agitation, follows commands , sensation is intact. Assessment and Plan (1) CVA (cerebral vascular accident) Assessment & Plan: Case discussed with Dr. Hendricks, continue current medical, physical, occupational, and speech therapies. MRI of the brain pending until patient able to tolerate supine position. Will hold off any dual anti-platelet, since patient is a-fib, awaiting cardiology recommendations. Recommend normotension, normothermic, head of the head elevated at least 30 degrees angle, glycemic control. Status: Acute
[2018-02-24] MEDS ORDERED: Albuterol-Ipratrop 3 mg / 0.5 (3 ml) UD IH PRN (11:33)
--- NOTE | 2018-02-24 11:51 | PN ---
DATE: 02/24/2018 CARDIOLOGY FOLLOWUP SUBJECTIVE: The patient is in a chair, breathing well. PHYSICAL EXAMINATION: VITAL SIGNS: Blood pressure is 162 systolic, heart rate is in the 50s. NECK: Negative JVD. LUNGS: Decreased breath sounds. HEART: Reveals S1, S2. EXTREMITIES: Without edema. LABORATORY DATA: Hemoglobin is 13. BUN and creatinine unremarkable. IMPRESSION: 1. Cerebrovascular accident. 2. Hypertension. 3. Obesity. 4. Pulmonary hypertension. 5. Agitation. PLAN: Given these findings, we will rearrange his antihypertensive medications. We will decrease his Lasix. Oscar Andres MD
[2018-02-24] MEDS ORDERED: POLYETHYLENE GLYCOL 17 GM PO PRN (11:52)
[2018-02-24] MEDS ORDERED: Docusate-Senna 50 mg-8.6 mg Tab PO PRN (11:52)
[2018-02-24 11:56] LABS: URINE BILIRUBIN NEGATIVE (NEGATIVE); URINE BLOOD SMALL (NEGATIVE); URINE COLOR YELLOW (YELLOW); URINE GLUCOSE (UA) NEGATIVE (NEGATIVE); URINE LEUKOCYTE ESTERASE NEGATIVE Leu/uL (NEGATIVE); URINE PROTEIN 100 mg/dL (<30 mg/dL)
[2018-02-24 11:57] LABS: URINE APPEARANCE CLEAR (CLEAR)
[2018-02-24] MEDS ORDERED: Non Formulary Medication (Rosuvastatin Calcium [Crestor] 1 TAB) PO SCH (12:00)
[2018-02-24 12:21] LABS: URINE BACTERIA FEW (NEG); URINE WBC 0 - 2 /hpf (0-6)
[2018-02-24] MEDS: Levothyroxine 25 MCG TAB PO SCH (12:48)
--- NOTE | 2018-02-24 13:19 | PN ---
DATE: 02/24/2018 SUBJECTIVE: The patient seen and examined at bedside. He is comfortable. His night was uneventful. He is off of Precedex drip. He is off of Cardene drip. He is following commands. He is alert, awake and oriented x3. Feels comfortable. PHYSICAL EXAMINATION: VITAL SIGNS: Blood pressure 146/78, heart rate 59 to 65, oxygen saturation 95% on room air, respiratory rate 18. ENT: Head and neck atraumatic. LUNGS: Clear to auscultation bilaterally. HEART: Regular rate and rhythm. S1, S2 normal. ABDOMEN: Soft, nontender, nondistended. MUSCULOSKELETAL: Some chronic cellulitic changes in both lower extremities. SKIN: Moist. PSYCHIATRY: The patient is comfortable. Alert, awake and oriented x3. LABORATORY DATA: Sodium 141, potassium 3.9, chloride 100, carbon dioxide 30, BUN 19, creatinine 1.5, glucose 105, AST 19, ALT 22, direct bilirubin 0.6, total bilirubin 2.8. WBC 6.6, hemoglobin 13.2, platelet count 130. MEDICATIONS: Tylenol p.r.n., aspirin, Lasix 60 mg IV every 12 hours, meropenem, Protonix, Zyvox. ASSESSMENT AND PLAN: This is a 63-year-old gentleman who presented with cerebrovascular accident, status post total tissue plasminogen activator. It has been four days since his presentation. He is off of antihypertensive drips. He passed swallow evaluation. He needs physical therapy and out of bed to chair. He might need sleep study for obstructive sleep apnea once discharged. At present time, we will continue to maintain euvolemia, euglycemia, normothermia and oxygen saturation more than 90%. DVT, GI prophylaxes. ccm time 40 min Mp Valadez MD SHARON
[2018-02-24] MEDS: Albuterol-Ipratrop 3 mg / 0.5 (3 ml) UD IH SCH ×2 (13:58→20:11)
[2018-02-24] MEDS: Acetylcysteine 20% Inhal Soln (4ml) IH SCH ×2 (14:07→20:11)
--- NOTE | 2018-02-24 15:26 | CP.CCUPN ---
<Himanshu Fairchild Avelina - Last Filed: 02/24/18 15:23> CCU Subjective - Physician Review Events Since Last Encounter (Free Text): 02/24/18 10:30A Patient seen and examined at bedside. No acute events overnight, patient less agitated per nursing, was taken off of precedex drip. Patient giving 'thumbs up ' but still not able to speak. CCU Objective - Vital Signs / Intake & Output Intake and Output (Last 8hrs): Intake & Output 02/24/18 02/24/18 02/24/18 06:59 14:59 22:59 Intake Total 560 7.3 Output Total 500 Balance 60 7.3 Intake: IV 560 7.3 Right Thumb 110 Right Upper arm 450 Output: Urine 500 Urine, Voided 500 - Medications Active Medications: Active Medications Generic Name Dose Route Start Last Admin Trade Name Freq PRN Reason Stop Dose Admin Acetaminophen 650 mg 02/23/18 19:46 02/23/18 20:00 Tylenol 325mg Tab PO 650 mg Q4H PRN Administration pain and fever Acetylcysteine 4 ml 02/24/18 11:45 02/24/18 14:07 Acetylcysteine 20% IH Not Given BIDRESP SACHIN Albuterol/Ipratropium 3 ml 02/24/18 14:00 02/24/18 13:58 Duoneb 3 Mg/0.5 Mg (3 Ml) Ud IH Not Given [id number] SACHIN Albuterol/Ipratropium 3 ml 02/24/18 11:33 Duoneb 3 Mg/0.5 Mg (3 Ml) Ud IH Q2H PRN Shortness of Breath Aspirin 81 mg 02/24/18 11:00 02/24/18 12:46 Aspirin Chewable PO 81 mg DAILY SACHIN Administration Atorvastatin Calcium 40 mg 02/24/18 17:00 Lipitor PO DIN [facility] Cholecalciferol 2,000 intlu 02/24/18 12:00 Vitamin D PO DAILY [facility] Furosemide 40 mg 02/24/18 22:00 Lasix IVP Q12 [facility] Heparin Sodium (Porcine) 5,000 units 02/24/18 22:00 Heparin SC Q8 [facility] Protocol Nicardipine HCl 20 mg in 200 mls @ 50 mls/hr 02/21/18 03:12 02/21/18 12:30 Cardene Iv Premix IV 0 mg/hr .Q4H PRN 0 mls/hr TITRATE PER MD ORDER Titration Protocol 5 MG/HR Linezolid 600 mg in 300 mls @ 200 mls/hr 02/21/18 10:45 02/24/18 10:45 Zyvox 600mg/300ml D5w IVPB 02/28/18 10:46 200 mls/hr Q12 SACHIN Administration Protocol Meropenem 50 mls @ 100 mls/hr 02/21/18 10:45 02/24/18 10:44 Merrem Iv 1 Gm Premix IVPB 100 mls/hr Q12 SACHIN Administration Protocol Dexmedetomidine HCl 400 mcg in 100 mls @ 7.303 mls/hr 02/23/18 08:37 07:30 Precedex 400mcg/100ml IV 0 mcg/kg/hr .[id number] PRN 0 mls/hr Agitation Titration Protocol 0.2 MCG/KG/HR Levothyroxine Sodium 25 mcg 02/24/18 12:00 02/24/18 12:48 Synthroid PO 25 mcg DAILY SACHIN Administration Losartan Potassium 100 mg 02/24/18 12:00 02/24/18 12:46 Cozaar PO 100 mg DAILY SACHIN Administration Pantoprazole Sodium 40 mg 02/21/18 10:00 02/24/18 10:44 Protonix Inj IVP 40 mg DAILY SACHIN Administration Phenazopyridine HCl 100 mg 02/24/18 14:00 02/24/18 12:47 Pyridium PO 100 mg PC SACHIN Administration Polyethylene Glycol 17 gm 02/24/18 12:30 Miralax PO BID SACHIN Sennosides 17.2 mg 02/24/18 22:00 Senokot Tab PO HS SACHIN Tamsulosin HCl 0.4 mg 02/24/18 12:00 02/24/18 12:46 Flomax PO 0.4 mg DAILY SACHIN Administration - Patient Studies Lab Studies: Microbiology Studies 02/21/18 21:41 Blood Culture - Preliminary Blood-Venous NO GROWTH AFTER 48 HOURS 02/21/18 21:41 Blood Culture - Preliminary Blood-Venous NO GROWTH AFTER 48 HOURS 02/21/18 09:00 Gram Stain - Final Leg - Left Wound Culture - Final Pseudomonas Aeruginosa Escherichia Coli Methicillin Resistant S Aureus 02/21/18 09:00 Gram Stain - Final Leg - Right Wound Culture - Final Pseudomonas Aeruginosa Methicillin Resistant S Aureus Lab Studies 02/24/18 02/24/18 02/24/18 Range/Units 11:37 11:15 07:43 WBC (4.5-11.0) 10^3/ul RBC (3.5-6.1) 10^6/uL Hgb (14.0-18.0) g/dL Hct (42.0-52.0) % MCV (80.0-105.0) fl MCH (25.0-35.0) pg MCHC (31.0-37.0) g/dl RDW (11.5-14.5) % Plt Count (120.0-450.0) 10^3/uL MPV (7.0-11.0) fl Gran % (50.0-68.0) % Lymph % (Auto) (22.0-35.0) % Citrus % (Auto) (1.0-6.0) % Eos % (Auto) (1.5-5.0) % Baso % (Auto) (0.0-3.0) % Gran # (1.4-6.5) Lymph # (Auto) (1.2-3.4) Citrus # (Auto) (0.1-0.6) Eos # (Auto) (0.0-0.7) Baso # (Auto) (0.0-2.0) K/mm3 Sodium (132-148) mmol/L Potassium (3.6-5.0) mmol/L Chloride (98-107) mmol/L Carbon Dioxide (21-33) mmol/L Anion Gap (10-20) BUN (7-21) mg/dL Creatinine (0.8-1.5) mg/dl Est GFR ( Amer) Est GFR (Non-Af Amer) POC Glucose (mg/dL) 97 105 (65-110) mg/dL Random Glucose (70-110) mg/dL Calcium (8.4-10.5) mg/dL Phosphorus (2.5-4.5) mg/dL Magnesium (1.7-2.2) mg/dL Total Bilirubin (0.2-1.3) mg/dL AST (17-59) U/L ALT (7-56) U/L Alkaline Phosphatase (38-126) U/L Total Protein (5.8-8.3) g/dL Albumin (3.0-4.8) g/dL Globulin gm/dL Albumin/Globulin Ratio (1.1-1.8) Prostate Specific Ag (0.00-2.5) ng/mL Urine Color Yellow (YELLOW) Urine Appearance Clear (CLEAR) Urine pH 7.0 (4.7-8.0) Ur Specific [place] 1.015 (1.005-1.035) Urine Protein 100 H (<30 mg/dL) mg/dL Urine Glucose (UA) Negative (NEGATIVE) mg/dL Urine Ketones Negative (NEGATIVE) mg/dL Urine Blood Small H (NEGATIVE) Urine Nitrate Negative (NEGATIVE) Urine Bilirubin Negative (NEGATIVE) Urine Urobilinogen 1.0 H (<1 E.U./dL) E.U./dL Ur Leukocyte Esterase Negative (NEGATIVE) [place]el/uL Urine RBC 2 - 5 (0-2) /hpf Urine WBC 0 - 2 (0-6) /hpf Ur Epithelial Cells None (0-5) /hpf Urine Bacteria Few (NEG) Valproic Acid (50.0-100.0) ug/mL 02/24/18 02/24/18 02/24/18 Range/Units 07:30 05:30 05:30 WBC 6.6 D (4.5-11.0) 10^3/ul RBC 4.51 (3.5-6.1) 10^6/uL Hgb 13.2 L (14.0-18.0) g/dL Hct 41.5 L (42.0-52.0) % MCV 92.0 (80.0-105.0) fl MCH 29.3 (25.0-35.0) pg MCHC 31.8 (31.0-37.0) g/dl RDW 14.7 H (11.5-14.5) % Plt Count 130 (120.0-450.0) 10^3/uL MPV 9.7 (7.0-11.0) fl Gran % 71.3 H (50.0-68.0) % Lymph % (Auto) 17.9 L (22.0-35.0) % Citrus % (Auto) 8.6 H (1.0-6.0) % Eos % (Auto) 2.0 (1.5-5.0) % Baso % (Auto) 0.2 (0.0-3.0) % Gran # 4.74 (1.4-6.5) Lymph # (Auto) 1.2 (1.2-3.4) Citrus # (Auto) 0.6 (0.1-0.6) Eos # (Auto) 0.1 (0.0-0.7) Baso # (Auto) 0.01 (0.0-2.0) K/mm3 Sodium 141 (132-148) mmol/L Potassium 3.9 (3.6-5.0) mmol/L Chloride 100 (98-107) mmol/L Carbon Dioxide 30 (21-33) mmol/L Anion Gap 15 (10-20) BUN 19 (7-21) mg/dL Creatinine 1.5 (0.8-1.5) mg/dl Est GFR ( Amer) 58 Est GFR (Non-Af Amer) 48 POC Glucose (mg/dL) (65-110) mg/dL Random Glucose 111 H (70-110) mg/dL Calcium 8.2 L (8.4-10.5) mg/dL Phosphorus 2.9 (2.5-4.5) mg/dL Magnesium 1.8 (1.7-2.2) mg/dL Total Bilirubin 2.8 H (0.2-1.3) mg/dL AST 19 (17-59) U/L ALT 22 (7-56) U/L Alkaline Phosphatase 65 (38-126) U/L Total Protein 6.6 (5.8-8.3) g/dL Albumin 3.4 (3.0-4.8) g/dL Globulin 3.2 gm/dL Albumin/Globulin Ratio 1.1 (1.1-1.8) Prostate Specific Ag 0.7 (0.00-2.5) ng/mL Urine Color (YELLOW) Urine Appearance (CLEAR) Urine pH (4.7-8.0) Ur Specific [place] (1.005-1.035) Urine Protein (<30 mg/dL) mg/dL Urine Glucose (UA) (NEGATIVE) mg/dL Urine Ketones (NEGATIVE) mg/dL Urine Blood (NEGATIVE) Urine Nitrate (NEGATIVE) Urine Bilirubin (NEGATIVE) Urine Urobilinogen (<1 E.U./dL) E.U./dL Ur Leukocyte Esterase (NEGATIVE) Adeel/uL Urine RBC (0-2) /hpf Urine WBC (0-6) /hpf Ur Epithelial Cells (0-5) /hpf Urine Bacteria (NEG) Valproic Acid (50.0-100.0) ug/mL 02/24/18 02/24/18 02/23/18 Range/Units 05:30 00:25 22:05 WBC (4.5-11.0) 10^3/ul RBC (3.5-6.1) 10^6/uL Hgb (14.0-18.0) g/dL Hct (42.0-52.0) % MCV (80.0-105.0) fl MCH (25.0-35.0) pg MCHC (31.0-37.0) g/dl RDW (11.5-14.5) % Plt Count (120.0-450.0) 10^3/uL MPV (7.0-11.0) fl Gran % (50.0-68.0) % Lymph % (Auto) (22.0-35.0) % Citrus % (Auto) (1.0-6.0) % Eos % (Auto) (1.5-5.0) % Baso % (Auto) (0.0-3.0) % Gran # (1.4-6.5) Lymph # (Auto) (1.2-3.4) Citrus # (Auto) (0.1-0.6) Eos # (Auto) (0.0-0.7) Baso # (Auto) (0.0-2.0) K/mm3 Sodium 141 (132-148) mmol/L Potassium 3.6 (3.6-5.0) mmol/L Chloride 99 (98-107) mmol/L Carbon Dioxide 31 (21-33) mmol/L Anion Gap 15 (10-20) BUN 18 (7-21) mg/dL Creatinine 1.3 (0.8-1.5) mg/dl Est GFR ( Amer) > 60 Est GFR (Non-Af Amer) 56 POC Glucose (mg/dL) 106 (65-110) mg/dL Random Glucose 131 H (70-110) mg/dL Calcium 8.1 L (8.4-10.5) mg/dL Phosphorus (2.5-4.5) mg/dL Magnesium (1.7-2.2) mg/dL Total Bilirubin (0.2-1.3) mg/dL AST (17-59) U/L ALT (7-56) U/L Alkaline Phosphatase (38-126) U/L Total Protein (5.8-8.3) g/dL Albumin (3.0-4.8) g/dL Globulin gm/dL Albumin/Globulin Ratio (1.1-1.8) Prostate Specific Ag (0.00-2.5) ng/mL Urine Color (YELLOW) Urine Appearance (CLEAR) Urine pH (4.7-8.0) Ur Specific [place] (1.005-1.035) Urine Protein (<30 mg/dL) mg/dL Urine Glucose (UA) (NEGATIVE) mg/dL Urine Ketones (NEGATIVE) mg/dL Urine Blood (NEGATIVE) Urine Nitrate (NEGATIVE) Urine Bilirubin (NEGATIVE) Urine Urobilinogen (<1 E.U./dL) E.U./dL Ur Leukocyte Esterase (NEGATIVE) Adeel/uL Urine RBC (0-2) /hpf Urine WBC (0-6) /hpf Ur Epithelial Cells (0-5) /hpf Urine Bacteria (NEG) Valproic Acid < 10 L (50.0-100.0) ug/mL Laboratory Results - last 24 hr 02/23/18 02/24/18 02/24/18 22:05 00:25 05:30 WBC RBC Hgb Hct MCV MCH MCHC RDW Plt Count MPV Gran % Lymph % (Auto) Citrus % (Auto) Eos % (Auto) Baso % (Auto) Gran # Lymph # (Auto) Citrus # (Auto) Eos # (Auto) Baso # (Auto) Sodium 141 Potassium 3.6 Chloride 99 Carbon Dioxide 31 Anion Gap 15 BUN 18 Creatinine 1.3 Est GFR ( Amer) > 60 Est GFR (Non-Af Amer) 56 POC Glucose (mg/dL) 106 Random Glucose 131 H Calcium 8.1 L Phosphorus Magnesium Total Bilirubin AST ALT Alkaline Phosphatase Total Protein Albumin Globulin Albumin/Globulin Ratio Prostate Specific Ag Urine Color Urine Appearance Urine pH Ur Specific [place] Urine Protein Urine Glucose (UA) Urine Ketones Urine Blood Urine Nitrate Urine Bilirubin Urine Urobilinogen Ur Leukocyte Esterase Urine RBC Urine WBC Ur Epithelial Cells Urine Bacteria Valproic Acid < 10 L 02/24/18 02/24/18 02/24/18 05:30 05:30 07:30 WBC 6.6 D RBC 4.51 Hgb 13.2 L Hct 41.5 L MCV 92.0 MCH 29.3 MCHC 31.8 RDW 14.7 H Plt Count 130 MPV 9.7 Gran % 71.3 H Lymph % (Auto) 17.9 L Citrus % (Auto) 8.6 H Eos % (Auto) 2.0 Baso % (Auto) 0.2 Gran # 4.74 Lymph # (Auto) 1.2 Citrus # (Auto) 0.6 Eos # (Auto) 0.1 Baso # (Auto) 0.01 Sodium 141 Potassium 3.9 Chloride 100 Carbon Dioxide 30 Anion Gap 15 BUN 19 Creatinine 1.5 Est GFR ( Amer) 58 Est GFR (Non-Af Amer) 48 POC Glucose (mg/dL) Random Glucose 111 H Calcium 8.2 L Phosphorus 2.9 Magnesium 1.8 Total Bilirubin 2.8 H AST 19 ALT 22 Alkaline Phosphatase 65 Total Protein 6.6 Albumin 3.4 Globulin 3.2 Albumin/Globulin Ratio 1.1 Prostate Specific Ag 0.7 Urine Color Urine Appearance Urine pH Ur Specific [place] Urine Protein Urine Glucose (UA) Urine Ketones Urine Blood Urine Nitrate Urine Bilirubin Urine Urobilinogen Ur Leukocyte Esterase Urine RBC Urine WBC Ur Epithelial Cells Urine Bacteria Valproic Acid 02/24/18 02/24/18 02/24/18 07:43 11:15 11:37 WBC RBC Hgb Hct MCV MCH MCHC RDW Plt Count MPV Gran % Lymph % (Auto) Citrus % (Auto) Eos % (Auto) Baso % (Auto) Gran # Lymph # (Auto) Citrus # (Auto) Eos # (Auto) Baso # (Auto) Sodium Potassium Chloride Carbon Dioxide Anion Gap BUN Creatinine Est GFR ( Amer) Est GFR (Non-Af Amer) POC Glucose (mg/dL) 105 97 Random Glucose Calcium Phosphorus Magnesium Total Bilirubin AST ALT Alkaline Phosphatase Total Protein Albumin Globulin Albumin/Globulin Ratio Prostate Specific Ag Urine Color Yellow Urine Appearance Clear Urine pH 7.0 Ur Specific [place] 1.015 Urine Protein 100 H Urine Glucose (UA) Negative Urine Ketones Negative Urine Blood Small H Urine Nitrate Negative Urine Bilirubin Negative Urine Urobilinogen 1.0 H Ur Leukocyte Esterase Negative Urine RBC 2 - 5 Urine WBC 0 - 2 Ur Epithelial Cells None Urine Bacteria Few Valproic Acid Fingerstick Blood Sugar Results: 106 Critical Care Progress Note - Nutrition Nutrition: Nutrition Category Date Time Status Dysphagia/Modified Consistency Diet [DIET] Diets 02/23/18 Lunch Ordered Assessment/Plan - Assessment and Plan (Free Text) Assessment: 63 year old male under ICU care for monitoring after tPA given for Acute CVA 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 HTN Uncontrolled HTN Neuro: - Given tPA - Repeat CT Head if any acute changes Cardio: - Discuss with cardiology restarting AC - Hold rate control for now Respiratory: - Duonebs prn - Nasal cannula prn - Maintain O2 sat > 90% GI: - Protonix for ppx - Honey Puree Diet ID: [id number] as per primary for cellulitis of lower extermity Maintain normothermia Nephro: - Hx of renal insufficiency - at baseline currently - Monitor with CMP - Replete electrolytes as needed Heme: - Discuss restarting AC for A-Fib Endo: - Maintain Euglycemia Dispo: At this time, patient is stable for [facility] <Mp Valadez - Last Filed: 02/25/18 13:11> CCU Objective - Vital Signs / Intake & Output Vital Signs (Last 4 hours): Vital Signs Pulse BP 02/25/18 09:20 73 143/81 Intake and Output (Last 8hrs): Intake & Output 02/24/18 02/25/18 02/25/18 22:59 06:59 14:59 Intake Total 1220 180 120 Output Total 650 900 200 Balance 570 -720 -80 Weight 305 lb 3 oz Intake: IV 500 Right Upper arm 500 Oral 720 180 120 Output: Urine 650 900 200 Urethral ([place]) 900 200 Urine, Voided 650 Other: # Voids Urine, Voided 5 # Bowel Movements 4 0 - Medications Active Medications: Active Medications Generic Name Dose Route Start Last Admin Trade Name Freq PRN Reason Stop Dose Admin Acetaminophen 650 mg 02/23/18 19:46 02/23/18 20:00 Tylenol 325mg Tab PO 650 mg Q4H PRN Administration pain and fever Acetylcysteine 4 ml 02/24/18 11:45 02/25/18 07:02 Acetylcysteine 20% IH Not Given BIDRESP SACHIN Albuterol/Ipratropium 3 ml 02/24/18 14:00 02/25/18 07:03 Duoneb 3 Mg/0.5 Mg (3 Ml) Ud IH Not Given [id number] SACHIN Albuterol/Ipratropium 3 ml 02/24/18 11:33 Duoneb 3 Mg/0.5 Mg (3 Ml) Ud IH Q2H PRN Shortness of Breath Aspirin 81 mg 02/24/18 11:00 02/25/18 09:19 Aspirin Chewable PO 81 mg DAILY SACHIN Administration Atorvastatin Calcium 40 mg 02/24/18 17:00 02/24/18 18:45 Lipitor PO Not Given DIN SACHIN Bisacodyl 10 mg 02/25/18 07:00 Dulcolax RC Q48H SACHIN Cholecalciferol 2,000 intlu 02/24/18 12:00 02/25/18 09:23 Vitamin D PO 2,000 intlu DAILY SACHIN Administration Enoxaparin Sodium 120 mg 02/25/18 11:45 02/25/18 12:28 Lovenox SC 120 mg Q12H SACHIN Administration Protocol Furosemide 40 mg 02/24/18 22:00 02/25/18 09:20 Lasix IVP 40 mg Q12 SACHIN Administration Hydromorphone HCl 1 mg 02/25/18 00:37 02/25/18 11:30 Dilaudid IVP 1 mg Q4H PRN Administration Pain, moderate (4-7) Linezolid 600 mg in 300 mls @ 200 mls/hr 02/21/18 10:45 02/25/18 09:23 Zyvox 600mg/300ml D5w IVPB 02/28/18 10:46 200 mls/hr Q12 SACHIN Administration Protocol Meropenem 50 mls @ 100 mls/hr 02/21/18 10:45 02/25/18 09:21 Merrem Iv 1 Gm Premix IVPB 100 mls/hr Q12 SACHIN Administration Protocol Levothyroxine Sodium 25 mcg 02/24/18 12:00 02/25/18 09:23 Synthroid PO 25 mcg DAILY SACHIN Administration Lorazepam 1 mg 02/25/18 10:09 02/25/18 11:21 Ativan IVP 1 mg ONCE PRN Administration Agitation Protocol Losartan Potassium 100 mg 02/24/18 12:00 06/19/18 09:19 Cozaar PO 100 mg DAILY SACHIN Administration Metoprolol Tartrate 5 mg 02/24/18 21:45 02/25/18 09:20 Lopressor IVP 5 mg Q6H SACHIN Administration Pantoprazole Sodium 40 mg 02/26/18 07:30 Protonix Ec Tab PO ACB SACHIN Phenazopyridine HCl 100 mg 02/24/18 14:00 02/25/18 09:22 Pyridium PO 100 mg PC SACHIN Administration Polyethylene Glycol 17 gm 02/24/18 12:30 02/25/18 09:21 Miralax PO 17 gm BID SACHIN Administration Quetiapine Fumarate 50 mg 02/24/18 22:00 02/24/18 23:00 Seroquel PO 50 mg HS SACHIN Administration Protocol Sennosides 17.2 mg 02/24/18 22:00 02/24/18 22:55 Senokot Tab PO 17.2 mg HS SACHIN Administration Tamsulosin HCl 0.4 mg 02/24/18 12:00 02/25/18 09:20 Flomax PO 0.4 mg DAILY SACHIN Administration - Patient Studies Lab Studies: Microbiology Studies 02/24/18 00:08 Urine Culture - Final Urine,Clean Catch No Growth (<1,000 CFU/ML) 02/21/18 21:41 Blood Culture - Preliminary Blood-Venous NO GROWTH AFTER 3 DAYS 02/21/18 21:41 Blood Culture - Preliminary Blood-Venous NO GROWTH AFTER 3 DAYS Lab Studies 02/25/18 02/25/18 02/25/18 Range/Units 13:00 11:00 07:50 WBC (4.5-11.0) 10^3/ul RBC (3.5-6.1) 10^6/uL Hgb (14.0-18.0) g/dL Hct (42.0-52.0) % MCV (80.0-105.0) fl MCH (25.0-35.0) pg MCHC (31.0-37.0) g/dl RDW (11.5-14.5) % Plt Count (120.0-450.0) 10^3/uL MPV (7.0-11.0) fl Gran % (50.0-68.0) % Lymph % (Auto) (22.0-35.0) % Citrus % (Auto) (1.0-6.0) % Eos % (Auto) (1.5-5.0) % Baso % (Auto) (0.0-3.0) % Gran # (1.4-6.5) Lymph # (Auto) (1.2-3.4) Citrus # (Auto) (0.1-0.6) Eos # (Auto) (0.0-0.7) Baso # (Auto) (0.0-2.0) K/mm3 Sodium (132-148) mmol/L Potassium (3.6-5.0) mmol/L Chloride (98-107) mmol/L Carbon Dioxide (21-33) mmol/L Anion Gap (10-20) BUN (7-21) mg/dL Creatinine (0.8-1.5) mg/dl Est GFR ( Amer) Est GFR (Non-Af Amer) POC Glucose (mg/dL) 109 101 (65-110) mg/dL Random Glucose (70-110) mg/dL Hemoglobin A1c (4.2-6.5) % Lactic Acid (0.7-2.1) mmol/L Calcium (8.4-10.5) mg/dL Phosphorus (2.5-4.5) mg/dL Magnesium (1.7-2.2) mg/dL Total Bilirubin (0.2-1.3) mg/dL Direct Bilirubin (0.0-0.4) mg/dL AST (17-59) U/L ALT (7-56) U/L Alkaline Phosphatase (38-126) U/L Troponin I ng/mL Total Protein (5.8-8.3) g/dL Albumin (3.0-4.8) g/dL Globulin gm/dL Albumin/Globulin Ratio (1.1-1.8) Amylase 71 (35-125) U/L Lipase 56 (23-300) U/L Prostate Specific Ag (0.00-2.5) ng/mL 25-OH Vitamin D Total (30.0-100.0) NG/ML Free T4 (0.78-2.19) ng/dL Thyroxine (T4) (5.5-11.0) ug/dL TSH 3rd Generation (0.46-4.68) mIU/mL 02/25/18 02/25/18 02/25/18 Range/Units 07:00 05:20 05:20 WBC (4.5-11.0) 10^3/ul RBC (3.5-6.1) 10^6/uL Hgb (14.0-18.0) g/dL Hct (42.0-52.0) % MCV (80.0-105.0) fl MCH (25.0-35.0) pg MCHC (31.0-37.0) g/dl RDW (11.5-14.5) % Plt Count (120.0-450.0) 10^3/uL MPV (7.0-11.0) fl Gran % (50.0-68.0) % Lymph % (Auto) (22.0-35.0) % Citrus % (Auto) (1.0-6.0) % Eos % (Auto) (1.5-5.0) % Baso % (Auto) (0.0-3.0) % Gran # (1.4-6.5) Lymph # (Auto) (1.2-3.4) Citrus # (Auto) (0.1-0.6) Eos # (Auto) (0.0-0.7) Baso # (Auto) (0.0-2.0) K/mm3 Sodium (132-148) mmol/L Potassium (3.6-5.0) mmol/L Chloride (98-107) mmol/L Carbon Dioxide (21-33) mmol/L Anion Gap (10-20) BUN (7-21) mg/dL Creatinine (0.8-1.5) mg/dl Est GFR ( Amer) Est GFR (Non-Af Amer) POC Glucose (mg/dL) (65-110) mg/dL Random Glucose (70-110) mg/dL Hemoglobin A1c (4.2-6.5) % Lactic Acid (0.7-2.1) mmol/L Calcium (8.4-10.5) mg/dL Phosphorus (2.5-4.5) mg/dL Magnesium (1.7-2.2) mg/dL Total Bilirubin (0.2-1.3) mg/dL Direct Bilirubin 0.9 H (0.0-0.4) mg/dL AST (17-59) U/L ALT (7-56) U/L Alkaline Phosphatase (38-126) U/L Troponin I ng/mL Total Protein (5.8-8.3) g/dL Albumin (3.0-4.8) g/dL Globulin gm/dL Albumin/Globulin Ratio (1.1-1.8) Amylase (35-125) U/L Lipase (23-300) U/L Prostate Specific Ag (0.00-2.5) ng/mL 25-OH Vitamin D Total 35.5 (30.0-100.0) NG/ML Free T4 1.42 (0.78-2.19) ng/dL Thyroxine (T4) 6.0 (5.5-11.0) ug/dL TSH 3rd Generation 3.63 (0.46-4.68) mIU/mL 02/25/18 02/25/18 02/25/18 Range/Units 05:20 05:20 05:20 WBC 10.1 (4.5-11.0) 10^3/ul RBC 4.88 (3.5-6.1) 10^6/uL Hgb 14.8 (14.0-18.0) g/dL Hct 44.8 (42.0-52.0) % MCV 91.8 (80.0-105.0) fl MCH 30.3 (25.0-35.0) pg MCHC 33.0 (31.0-37.0) g/dl RDW 14.8 H (11.5-14.5) % Plt Count 133 (120.0-450.0) 10^3/uL MPV 8.7 (7.0-11.0) fl Gran % 84.9 H (50.0-68.0) % Lymph % (Auto) 9.9 L (22.0-35.0) % Citrus % (Auto) 4.3 (1.0-6.0) % Eos % (Auto) 0.8 L (1.5-5.0) % Baso % (Auto) 0.1 (0.0-3.0) % Gran # 8.59 H (1.4-6.5) Lymph # (Auto) 1.0 L (1.2-3.4) Citrus # (Auto) 0.4 (0.1-0.6) Eos # (Auto) 0.1 (0.0-0.7) Baso # (Auto) 0.01 (0.0-2.0) K/mm3 Sodium 144 (132-148) mmol/L Potassium 3.8 (3.6-5.0) mmol/L Chloride 99 (98-107) mmol/L Carbon Dioxide 32 (21-33) mmol/L Anion Gap 17 (10-20) BUN 21 (7-21) mg/dL Creatinine 1.4 (0.8-1.5) mg/dl Est GFR ( Amer) > 60 Est GFR (Non-Af Amer) 52 POC Glucose (mg/dL) (65-110) mg/dL Random Glucose 127 H (70-110) mg/dL Hemoglobin A1c 5.5 (4.2-6.5) % Lactic Acid (0.7-2.1) mmol/L Calcium 8.9 (8.4-10.5) mg/dL Phosphorus 3.5 (2.5-4.5) mg/dL Magnesium 2.1 (1.7-2.2) mg/dL Total Bilirubin 3.2 H (0.2-1.3) mg/dL Direct Bilirubin 0.5 H (0.0-0.4) mg/dL AST 23 (17-59) U/L ALT 22 (7-56) U/L Alkaline Phosphatase 75 (38-126) U/L Troponin I ng/mL Total Protein 7.6 (5.8-8.3) g/dL Albumin 4.1 (3.0-4.8) g/dL Globulin 3.5 gm/dL Albumin/Globulin Ratio 1.2 (1.1-1.8) Amylase (35-125) U/L Lipase (23-300) U/L Prostate Specific Ag (0.00-2.5) ng/mL 25-OH Vitamin D Total (30.0-100.0) NG/ML Free T4 (0.78-2.19) ng/dL Thyroxine (T4) (5.5-11.0) ug/dL TSH 3rd Generation (0.46-4.68) mIU/mL 02/25/18 02/24/18 02/24/18 Range/Units 00:56 18:27 18:27 WBC (4.5-11.0) 10^3/ul RBC (3.5-6.1) 10^6/uL Hgb (14.0-18.0) g/dL Hct (42.0-52.0) % MCV (80.0-105.0) fl MCH (25.0-35.0) pg MCHC (31.0-37.0) g/dl RDW (11.5-14.5) % Plt Count (120.0-450.0) 10^3/uL MPV (7.0-11.0) fl Gran % (50.0-68.0) % Lymph % (Auto) (22.0-35.0) % Citrus % (Auto) (1.0-6.0) % Eos % (Auto) (1.5-5.0) % Baso % (Auto) (0.0-3.0) % Gran # (1.4-6.5) Lymph # (Auto) (1.2-3.4) Citrus # (Auto) (0.1-0.6) Eos # (Auto) (0.0-0.7) Baso # (Auto) (0.0-2.0) K/mm3 Sodium 144 (132-148) mmol/L Potassium 3.4 L (3.6-5.0) mmol/L Chloride 98 (98-107) mmol/L Carbon Dioxide 30 (21-33) mmol/L Anion Gap 19 (10-20) BUN 21 (7-21) mg/dL Creatinine 1.4 (0.8-1.5) mg/dl Est GFR ( Amer) > 60 Est GFR (Non-Af Amer) 52 POC Glucose (mg/dL) 144 H (65-110) mg/dL Random Glucose 113 H (70-110) mg/dL Hemoglobin A1c (4.2-6.5) % Lactic Acid 1.3 (0.7-2.1) mmol/L Calcium 8.8 (8.4-10.5) mg/dL Phosphorus (2.5-4.5) mg/dL Magnesium (1.7-2.2) mg/dL Total Bilirubin 4.3 H (0.2-1.3) mg/dL Direct Bilirubin (0.0-0.4) mg/dL AST 24 (17-59) U/L ALT 20 (7-56) U/L Alkaline Phosphatase 88 (38-126) U/L Troponin I 0.05 D ng/mL Total Protein 8.0 (5.8-8.3) g/dL Albumin 4.1 (3.0-4.8) g/dL Globulin 3.9 gm/dL Albumin/Globulin Ratio 1.0 L (1.1-1.8) Amylase (35-125) U/L Lipase (23-300) U/L Prostate Specific Ag (0.00-2.5) ng/mL 25-OH Vitamin D Total (30.0-100.0) NG/ML Free T4 (0.78-2.19) ng/dL Thyroxine (T4) (5.5-11.0) ug/dL TSH 3rd Generation (0.46-4.68) mIU/mL 02/24/18 02/24/18 Range/Units 18:27 07:30 WBC 10.5 D (4.5-11.0) 10^3/ul RBC 4.99 (3.5-6.1) 10^6/uL Hgb 15.2 D (14.0-18.0) g/dL Hct 45.1 (42.0-52.0) % MCV 90.4 (80.0-105.0) fl MCH 30.5 (25.0-35.0) pg MCHC 33.7 (31.0-37.0) g/dl RDW 14.6 H (11.5-14.5) % Plt Count 143 (120.0-450.0) 10^3/uL MPV 9.2 (7.0-11.0) fl Gran % 78.8 H (50.0-68.0) % Lymph % (Auto) 13.9 L (22.0-35.0) % Citrus % (Auto) 5.5 (1.0-6.0) % Eos % (Auto) 1.7 (1.5-5.0) % Baso % (Auto) 0.1 (0.0-3.0) % Gran # 8.26 H (1.4-6.5) Lymph # (Auto) 1.5 (1.2-3.4) Citrus # (Auto) 0.6 (0.1-0.6) Eos # (Auto) 0.2 (0.0-0.7) Baso # (Auto) 0.01 (0.0-2.0) K/mm3 Sodium (132-148) mmol/L Potassium (3.6-5.0) mmol/L Chloride (98-107) mmol/L Carbon Dioxide (21-33) mmol/L Anion Gap (10-20) BUN (7-21) mg/dL Creatinine (0.8-1.5) mg/dl Est GFR ( Amer) Est GFR (Non-Af Amer) POC Glucose (mg/dL) (65-110) mg/dL Random Glucose (70-110) mg/dL Hemoglobin A1c (4.2-6.5) % Lactic Acid (0.7-2.1) mmol/L Calcium (8.4-10.5) mg/dL Phosphorus (2.5-4.5) mg/dL Magnesium (1.7-2.2) mg/dL Total Bilirubin (0.2-1.3) mg/dL Direct Bilirubin (0.0-0.4) mg/dL AST (17-59) U/L ALT (7-56) U/L Alkaline Phosphatase (38-126) U/L Troponin I ng/mL Total Protein (5.8-8.3) g/dL Albumin (3.0-4.8) g/dL Globulin gm/dL Albumin/Globulin Ratio (1.1-1.8) Amylase (35-125) U/L Lipase (23-300) U/L Prostate Specific Ag 0.7 (0.00-2.5) ng/mL 25-OH Vitamin D Total (30.0-100.0) NG/ML Free T4 (0.78-2.19) ng/dL Thyroxine (T4) (5.5-11.0) ug/dL TSH 3rd Generation (0.46-4.68) mIU/mL Laboratory Results - last 24 hr 02/24/18 02/24/18 02/24/18 07:30 18:27 18:27 WBC 10.5 D RBC 4.99 Hgb 15.2 D Hct 45.1 MCV 90.4 MCH 30.5 MCHC 33.7 RDW 14.6 H Plt Count 143 MPV 9.2 Gran % 78.8 H Lymph % (Auto) 13.9 L Citrus % (Auto) 5.5 Eos % (Auto) 1.7 Baso % (Auto) 0.1 Gran # 8.26 H Lymph # (Auto) 1.5 Citrus # (Auto) 0.6 Eos # (Auto) 0.2 Baso # (Auto) 0.01 Sodium 144 Potassium 3.4 L Chloride 98 Carbon Dioxide 30 Anion Gap 19 BUN 21 Creatinine 1.4 Est GFR ( Amer) > 60 Est GFR (Non-Af Amer) 52 POC Glucose (mg/dL) Random Glucose 113 H Hemoglobin A1c Lactic Acid Calcium 8.8 Phosphorus Magnesium Total Bilirubin 4.3 H Direct Bilirubin AST 24 ALT 20 Alkaline Phosphatase 88 Troponin I 0.05 D Total Protein 8.0 Albumin 4.1 Globulin 3.9 Albumin/Globulin Ratio 1.0 L Amylase Lipase Prostate Specific Ag 0.7 25-OH Vitamin D Total Free T4 Thyroxine (T4) TSH 3rd Generation 02/24/18 02/25/18 02/25/18 18:27 00:56 05:20 WBC 10.1 RBC 4.88 Hgb 14.8 Hct 44.8 MCV 91.8 MCH 30.3 MCHC 33.0 RDW 14.8 H Plt Count 133 MPV 8.7 Gran % 84.9 H Lymph % (Auto) 9.9 L Citrus % (Auto) 4.3 Eos % (Auto) 0.8 L Baso % (Auto) 0.1 Gran # 8.59 H Lymph # (Auto) 1.0 L Citrus # (Auto) 0.4 Eos # (Auto) 0.1 Baso # (Auto) 0.01 Sodium Potassium Chloride Carbon Dioxide Anion Gap BUN Creatinine Est GFR ( Amer) Est GFR (Non-Af Amer) POC Glucose (mg/dL) 144 H Random Glucose Hemoglobin A1c Lactic Acid 1.3 Calcium Phosphorus Magnesium Total Bilirubin Direct Bilirubin AST ALT Alkaline Phosphatase Troponin I Total Protein Albumin Globulin Albumin/Globulin Ratio Amylase Lipase Prostate Specific Ag 25-OH Vitamin D Total Free T4 Thyroxine (T4) TSH 3rd Generation 02/25/18 02/25/18 02/25/18 05:20 05:20 05:20 WBC RBC Hgb Hct MCV MCH MCHC RDW Plt Count MPV Gran % Lymph % (Auto) Citrus % (Auto) Eos % (Auto) Baso % (Auto) Gran # Lymph # (Auto) Citrus # (Auto) Eos # (Auto) Baso # (Auto) Sodium 144 Potassium 3.8 Chloride 99 Carbon Dioxide 32 Anion Gap 17 BUN 21 Creatinine 1.4 Est GFR ( Amer) > 60 Est GFR (Non-Af Amer) 52 POC Glucose (mg/dL) Random Glucose 127 H Hemoglobin A1c 5.5 Lactic Acid Calcium 8.9 Phosphorus 3.5 Magnesium 2.1 Total Bilirubin 3.2 H Direct Bilirubin 0.5 H AST 23 ALT 22 Alkaline Phosphatase 75 Troponin I Total Protein 7.6 Albumin 4.1 Globulin 3.5 Albumin/Globulin Ratio 1.2 Amylase Lipase Prostate Specific Ag 25-OH Vitamin D Total 35.5 Free T4 Thyroxine (T4) TSH 3rd Generation 02/25/18 02/25/18 02/25/18 05:20 07:00 07:50 WBC RBC Hgb Hct MCV MCH MCHC RDW Plt Count MPV Gran % Lymph % (Auto) Citrus % (Auto) Eos % (Auto) Baso % (Auto) Gran # Lymph # (Auto) Citrus # (Auto) Eos # (Auto) Baso # (Auto) Sodium Potassium Chloride Carbon Dioxide Anion Gap BUN Creatinine Est GFR ( Amer) Est GFR (Non-Af Amer) POC Glucose (mg/dL) 101 Random Glucose Hemoglobin A1c Lactic Acid Calcium Phosphorus Magnesium Total Bilirubin Direct Bilirubin 0.9 H AST ALT Alkaline Phosphatase Troponin I Total Protein Albumin Globulin Albumin/Globulin Ratio Amylase Lipase Prostate Specific Ag 25-OH Vitamin D Total Free T4 1.42 Thyroxine (T4) 6.0 TSH 3rd Generation 3.63 02/25/18 02/25/18 11:00 13:00 WBC RBC Hgb Hct MCV MCH MCHC RDW Plt Count MPV Gran % Lymph % (Auto) Citrus % (Auto) Eos % (Auto) Baso % (Auto) Gran # Lymph # (Auto) Citrus # (Auto) Eos # (Auto) Baso # (Auto) Sodium Potassium Chloride Carbon Dioxide Anion Gap BUN Creatinine Est GFR ( Amer) Est GFR (Non-Af Amer) POC Glucose (mg/dL) 109 Random Glucose Hemoglobin A1c Lactic Acid Calcium Phosphorus Magnesium Total Bilirubin Direct Bilirubin AST ALT Alkaline Phosphatase Troponin I Total Protein Albumin Globulin Albumin/Globulin Ratio Amylase 71 Lipase 56 Prostate Specific Ag 25-OH Vitamin D Total Free T4 Thyroxine (T4) TSH 3rd Generation EKG/Cardiology Studies: Cardiology / EKG Studies 02/24/18 17:55 ELECTROCARDIOGRAM Stat Comment: Reason For Exam: AFIB with tachycardia but not RVR Critical Care Progress Note - Nutrition Nutrition: Nutrition Category Date Time Status Dysphagia/Modified Consistency Diet [DIET] Diets 02/23/18 Lunch Ordered Attending/Attestation - Attestation I have personally seen and examined this patient.: Yes I have fully participated in the care of the patient.: Yes I have reviewed all pertinent clinical information: Yes Notes (Text): 02/25/18 13:[address] Valadez note
--- NOTE | 2018-02-24 15:30 | CP.PCM.PN ---
Subjective - Date & Time of Evaluation Date of Evaluation: 02/24/18 Time of Evaluation: 13:10 - Subjective Subjective: Not in distress while on chair, no fevers. Objective - Vital Signs/Intake and Output Vital Signs (last 24 hours): Temp Pulse Resp BP Pulse Ox 97.4 F L 50 L 26 H 156/86 H 96 02/24/18 04:00 02/24/18 06:47 02/23/18 11:44 02/24/18 06:00 02/24/18 06:47 Intake and Output: 02/24/18 02/24/18 06:59 18:59 Intake Total 567.3 Output Total 500 Balance 67.3 - Medications Medications: Current Medications Acetaminophen (Tylenol 325mg Tab) 650 mg PO Q4H PRN PRN Reason: pain and fever Last Admin: 02/23/18 20:00 Dose: 650 mg Aspirin (Aspirin Supp) 300 mg RC DAILY SACHIN Last Admin: 02/23/18 10:21 Dose: 300 mg Furosemide (Lasix) 60 mg IVP Q12 SACHIN Last Admin: 02/23/18 21:36 Dose: 60 mg Nicardipine HCl (Cardene Iv Premix) 20 mg in 200 mls @ 50 mls/hr IV .Q4H PRN; Protocol; 5 MG/HR PRN Reason: TITRATE PER MD ORDER Last Titration: 02/21/18 12:30 Dose: 0 mg/hr, 0 mls/hr Linezolid (Zyvox 600mg/300ml D5w) 600 mg in 300 mls @ 200 mls/hr IVPB Q12 SACHIN PRN Reason: Protocol Stop: 02/28/18 10:46 Last Admin: 02/23/18 22:15 Dose: 200 mls/hr Meropenem (Merrem Iv 1 Gm Premix) 50 mls @ 100 mls/hr IVPB Q12 [facility] PRN Reason: Protocol Last Admin: 02/23/18 21:37 Dose: 100 mls/hr Dexmedetomidine HCl (Precedex 400mcg/100ml) 400 mcg in 100 mls @ 7.303 mls/hr IV .[id number] PRN; Protocol; 0.2 MCG/KG/HR PRN Reason: Agitation Last Titration: 02/23/18 21:00 Dose: 0.5 mcg/kg/hr, 18.257 mls/hr Pantoprazole Sodium (Protonix Inj) 40 mg IVP DAILY SACHIN Last Admin: 02/23/18 10:21 Dose: 40 mg - Labs Labs: 02/24/18 05:30 02/24/18 05:30 PT 17.3 SECONDS (9.4-12.5) H 02/20/18 17:49 INR 1.50 (0.93-1.08) H 02/20/18 17:49 APTT 31.6 Seconds (25.1-36.5) 02/20/18 17:49 - Constitutional Appears: Chronically Ill - Head Exam Head Exam: NORMAL INSPECTION - Neck Exam Neck Exam: absent: Meningismus - Respiratory Exam Respiratory Exam: Decreased Breath Sounds - Cardiovascular Exam Cardiovascular Exam: +S1, +S2 - GI/Abdominal Exam GI & Abdominal Exam: Soft. absent: Tenderness - Extremities Exam Additional comments: right leg with dressings in place Assessment and Plan - Assessment and Plan (Free Text) Plan: Assessment right leg infected venous stasis ulcers, with MRSA and Pseudomonas acute CVA with right sided weakness S/P tPA infusion history of left lower extremity skin and skin structure infection with Klebsiella and MRSA in a patient with chronic venous stasis ulcers with no evidence of abscess or osteomyelitis on MRI, clinically improving Probable CHF exacerbation chronic systolic CHF with EF 25% chronic atrial fibrillation chronic lymphedema with chronic venous stasis COPD HTN history of gastric bypass surgery history of left knee surgery Plan continue zyvox and Merrem day 4 - aim for 7-10 days of antibiotics follow up further Podiatry recommendations Will continue to monitor clinically
--- NOTE | 2018-02-24 16:21 | PN ---
DATE: 02/24/2018 SUBJECTIVE: The patient is seen in CCU bed 7. The patient is out of bed to chair. The patient is seen sitting up. The patient has expressive aphasia and dysarthria. Overnight, the patient's condition was discussed with the patient's nurses. The patient is alert, awake, responsive. OBJECTIVE: VITAL SIGNS: T-max, the patient has been found to be having had some episode of agitation. During the night according to the medical transcription editor, the patient's vital signs, T-max 99.1. Telemetry shows atrial fibrillation, heart rate is in 50s. Blood pressure is 162/90, 156/86, 159/81. Respirations 20, 21. O2 sat is 95, 97, 96%. Intake output . HEENT: Head examination, normocephalic and atraumatic. HEENT examination shows pink conjunctivae. Anicteric sclerae. No oropharyngeal lesion. No obvious facial asymmetry noted.. Questionable soft carotid bruit. CHEST: Examination, is kyphosis. LUNGS: Examination shows decreased breath sound at the bases. Occasional rhonchi in the upper lung saini. CARDIOVASCULAR: S1, S2. Irregular rhythm. Positive systolic murmur at left sternal border, right second intercostal space, left second intercostal space. ABDOMEN: Morbidly obese, protuberant. GENITALIA: Male. EXTREMITIES: Lower extremities shows positive lymphedema and the Kameron bandage wrap is noted. MUSCULOSKELETAL: Examination shows a body mass index of 52. NEUROLOGIC: The patient has weakness of the right upper and lower extremity, but right upper extremity has improving strength. Gait examination could not be tested. PSYCHIATRIC: Examination not applicable. DIAGNOSTICS: 02/24, WBC of 6.6, hemoglobin/hematocrit is 13.2 and 41.5, platelets 130. Granulocytes: 71% segs. PT/PTT 17.3 and 31.6. Sodium 141, potassium 3.9, chloride 100, CO2 30, anion gap 15, BUN 19, creatinine 1.5, GFR 58, glucose 111, calcium 8.2, phosphorus 2.9, magnesium 1.8, total bili 2.8. LFTs are normal. Urine drug screen was negative. Right and left leg cultures shows Pseudomonas aeruginosa and methicillin-resistant Staphylococcus aureus. Blood cultures are negative. MRSA, nares are negative. Blood type is . The patient's CT head, carotid ultrasound, venous Doppler, CTA all were reviewed.. EKG was reviewed. Echocardiogram report was reviewed. IMPRESSION AND PLAN: 1. Acute cerebrovascular accident with right-sided hemiparesis (slow resolving) and hemiplegia, status post tissue plasminogen activator. 2. Dysarthria versus expressive aphasia. 3. Slow resolving right-sided hemiparesis and hemiplegia. 4. Anticoagulation, Coumadin-requiring atrial fibrillation. 5. History of poor compliance and noncompliance with medications and diet. 6. Uncontrolled hypertension secondary to noncompliance. 7. Super morbid obesity with elevated body mass index of 52. 8. Mild normocytic anemia. 9. Hypomagnesemia. 10. Hypokalemia. 11. Probable diastolic congestive heart failure with elevated brain natriuretic peptide. 12. Indeterminate troponin. 13. History of gastric bypass surgery. 14. Bilateral lower extremity lymphedema with chronic venous stasis ulceration. 15. Methicillin-resistant Staphylococcus aureus and Pseudomonas aeruginosa infection. 16. Bilateral l lower extremity venous stasis cellulitis and ulceration. 17. Left ventricular ejection fraction of 50%. 18. Severe pulmonary hypertension with right ventricular systolic pressure of 60 mmHg. 19. Biatrial enlargement. 20. Moderate tricuspid regurgitation. 21. Moderately reduced right ventricular systolic function. 22. Mildly enlarged aortic root. 23. Nmox-vz-rvfuqfok bilateral cavernous internal carotid artery stenosis secondary to atherosclerosis. 24. Lhiq-jw-qamofpio bilateral cavernous internal carotid artery stenosis. 25. Chronic microvascular ischemic disease, chronic ischemic changes and lacunar infarct of the bilateral basal ganglia and periventricular white matter disease of the basal ganglia and harshad. 26. Diffuse cerebral cortical atrophy of the brain. 27. Pontine chronic ischemic changes. 28. Mild ventriculomegaly. 29. Gait dysfunction. 30. Right hemiparesis versus hemiplegia. 31. Chronic microangiopathy. 32. History of gastric bypass surgery. 33. Episodic agitation. 34. History of hyperlipidemia. 35. History of prostatic hypertrophy. PLAN: At this time, the patient will be considered for possible transfer out of the ICU, to Telemetry in front of the nursing station. The patient has been ordered a PSA. The patient has been ordered serial labs; hemoglobin A1c, vitamin D. Repeat CBC. Current consultations,. Neurology, Cardiology, Infectious Disease, Podiatry. CURRENT MEDICATIONS: The patient is on Mucomyst nebulizer 20% 4 mL twice a day, aspirin 81 mg daily, Cozaar 100 mg p.o. daily. The patient is on Precedex drip which was turned off. The patient is on DuoNeb nebulizer every 6 hours [id number] every 2 hours p.r.n., Flomax 0.4 mg daily. The patient's Lasix will be continued. The patient will be continued on Lasix 40 mg IV every 12 hours.. The patient has been given magnesium sulfate riders 2 g. The patient is on meropenem 1 g IV every 12 hours, MiraLax 17 g. The patient will be started on MiraLax 17 g twice a day. The patient has been given potassium supplementation, Protonix 40 mg daily, Pyridium 100 mg three times a day, Crestor, the patient will be started on statins, Lipitor 40 mg daily. The patient is on Senokot at bedtime. The patient is on Synthroid 25 mcg daily, Tylenol p.r.n., vitamin D3 2000 units daily, Zyvox 600 mg IV every 12 hours. MRI of the brain pending. The patient is on dysphagia modified consistency diet. The patient is on neuro checks. Out of bed. Physical therapy, occupational therapy, speech therapy ordered. The patient is seen by social contact worker and Rehab. RECOMMENDATIONS: Acute rehab versus subacute rehab. The patient was seen by speech therapist. The patient has moderate oropharyngeal dysphagia with right-sided oral motor weakness and neglect with mild receptive language deficit with expressive aphasia. The patient at present will be continued on the above therapeutic intervention. The patient's further management will be dependent upon the patient's clinical condition, hemodynamic status and as per the patient response to therapeutic intervention as per the patient's diagnostic test results as per recommendation by all the physicians involved in the care of the patient. Dictated and electronically signed, not read. Rashad Brown MD
--- NOTE | 2018-02-24 17:34 | CP.PCM.PN ---
<Balbina Eduardo - Last Filed: 02/24/18 17:31> Subjective - Date & Time of Evaluation Date of Evaluation: 02/24/18 Time of Evaluation: 17:31 - Subjective Subjective: Podiatry consult note: Dr. Sebastian 63 year old male was seen and evaluated at bedside for b/l venous stasis leg ulcerations. Patient is AAOx3. Appears to be non-verbal. Appears in acute distress due to unable to perform bowel movements. Leg dressing appears clean, dry and intact. Objective - Vital Signs/Intake and Output Vital Signs (last 24 hours): Temp Pulse Resp BP Pulse Ox 97.4 F L 50 L 26 H 162/90 H 96 02/24/18 04:00 02/24/18 06:47 02/23/18 11:44 02/24/18 10:42 02/24/18 06:47 Intake and Output: 02/24/18 02/24/18 06:59 18:59 Intake Total 567.3 7.3 Output Total 500 Balance 67.3 7.3 - Medications Medications: Current Medications Acetaminophen (Tylenol 325mg Tab) 650 mg PO Q4H PRN PRN Reason: pain and fever Last Admin: 02/23/18 20:00 Dose: 650 mg Acetylcysteine (Acetylcysteine 20%) 4 ml [facility]P [facility] Last Admin: 02/24/18 14:07 Dose: Not Given Albuterol/Ipratropium (Duoneb 3 Mg/0.5 Mg (3 Ml) Ud) 3 ml IH [id number] SACHIN Last Admin: 02/24/18 13:58 Dose: Not Given Albuterol/Ipratropium (Duoneb 3 Mg/0.5 Mg (3 Ml) Ud) 3 ml IH Q2H PRN PRN Reason: Shortness of Breath Aspirin (Aspirin Chewable) 81 mg PO DAILY [facility] Last Admin: 02/24/18 12:46 Dose: 81 mg Atorvastatin Calcium (Lipitor) 40 mg PO DIN [facility] Cholecalciferol (Vitamin D) 2,000 intlu PO DAILY SACHIN Furosemide (Lasix) 40 mg IVP Q12 SACHIN Heparin Sodium (Porcine) (Heparin) 5,000 units SC Q8 SACHIN PRN Reason: Protocol Nicardipine HCl (Cardene Iv Premix) 20 mg in 200 mls @ 50 mls/hr IV .Q4H PRN; Protocol; 5 MG/HR PRN Reason: TITRATE PER MD ORDER Last Titration: 02/21/18 12:30 Dose: 0 mg/hr, 0 mls/hr Linezolid (Zyvox 600mg/300ml D5w) 600 mg in 300 mls @ 200 mls/hr IVPB Q12 SACHIN PRN Reason: Protocol Stop: 02/28/18 10:46 Last Admin: 02/24/18 10:45 Dose: 200 mls/hr Meropenem (Merrem Iv 1 Gm Premix) 50 mls @ 100 mls/hr IVPB Q12 [facility] PRN Reason: Protocol Last Admin: 02/24/18 10:44 Dose: 100 mls/hr Dexmedetomidine HCl (Precedex 400mcg/100ml) 400 mcg in 100 mls @ 7.303 mls/hr IV .[id number] PRN; Protocol; 0.2 MCG/KG/HR PRN Reason: Agitation Last Titration: 02/24/18 07:30 Dose: 0 mcg/kg/hr, 0 mls/hr Levothyroxine Sodium (Synthroid) 25 mcg PO DAILY SACHIN Last Admin: 02/24/18 12:48 Dose: 25 mcg Losartan Potassium (Cozaar) 100 mg PO DAILY SACHIN Last Admin: 02/24/18 12:46 Dose: 100 mg Pantoprazole Sodium (Protonix Inj) 40 mg IVP DAILY SACHIN Last Admin: 02/24/18 10:44 Dose: 40 mg Phenazopyridine HCl (Pyridium) 100 mg PO PC SACHIN Last Admin: 02/24/18 12:47 Dose: 100 mg Polyethylene Glycol (Miralax) 17 gm PO BID SACHIN Quetiapine Fumarate (Seroquel) 50 mg PO HS SACHIN PRN Reason: Protocol Sennosides (Senokot Tab) 17.2 mg PO HS SACHIN Tamsulosin HCl (Flomax) 0.4 mg PO DAILY SACHIN Last Admin: 02/24/18 12:46 Dose: 0.4 mg - Labs Labs: 02/24/18 05:30 02/24/18 05:30 PT 17.3 SECONDS (9.4-12.5) H 02/20/18 17:49 INR 1.50 (0.93-1.08) H 02/20/18 17:49 APTT 31.6 Seconds (25.1-36.5) 02/20/18 17:49 - Constitutional Appears: Well, Non-toxic - Extremities Exam Additional comments: B/l LE focused exam Vasc: DP/PT pulses non-palpable secondary to b/l lymphedema. CFT > 3 seconds to all digits. Skin temperature warm to warm from proximal to distal. Severe b/l lymphedema noted b/l Neuro: Unable to assess due to mental status Derm: RLE - Approx 6 cm x 5 cm superficial venous stasis ulceration noted to lateral right leg. No erythema, no malodor, no other clinical signs of infection. Moderate serous drainage noted to site. Base is fibrogranular. LLE- One 0.5 cm x 0.5 cm x 0.1 venous stasis ulceration noted to anterior leg and one noted to posterior leg. No erythema, no malodor, no other clinical signs of infection. Moderate serous drainage noted to site. Base is fibrogranular. MSK: Unable to assess pain on palpation, MMT or ROM. No other gross deformities noted - Neurological Exam Neurological Exam: Alert, Awake, Oriented x3 - Psychiatric Exam Psychiatric exam: Normal Affect, Normal Mood Assessment and Plan - Assessment and Plan (Free Text) Assessment: 63 year old male evaluated for b/l venous stasis ulcerations R worse than L Plan: Patient seen and evaluated with attending Dr. Sebastian Absent leukocytosis Continue abx per ID F/u wound cx Wounds cleansed with saline and dressed with DSD, ABD right side, optifoam left side No plan for surgical intervention at this time Podiatry will continue to follow while patient in house <Anusha Sebastian - Last Filed: 02/26/18 07:55> Objective - Vital Signs/Intake and Output Vital Signs (last 24 hours): Temp Pulse Resp BP Pulse Ox 98.7 F 76 20 107/69 97 02/26/18 06:00 02/26/18 06:00 02/26/18 06:00 02/26/18 06:00 02/26/18 06:00 Intake and Output: 02/26/18 02/26/18 06:59 18:59 Intake Total 300 Output Total 1600 Balance -1300 - Medications Medications: Current Medications Acetaminophen (Tylenol 325mg Tab) 650 mg PO Q4H PRN PRN Reason: pain and fever Last Admin: 02/23/18 20:00 Dose: 650 mg Acetylcysteine (Acetylcysteine 20%) 4 ml IH BIDRESP SACHIN Last Admin: 02/26/18 07:25 Dose: 4 ml Albuterol/Ipratropium (Duoneb 3 Mg/0.5 Mg (3 Ml) Ud) 3 ml IH [id number] SACHIN Last Admin: 02/26/18 07:25 Dose: 3 ml Albuterol/Ipratropium (Duoneb 3 Mg/0.5 Mg (3 Ml) Ud) 3 ml IH Q2H PRN PRN Reason: Shortness of Breath Aspirin (Aspirin Chewable) 81 mg PO DAILY [facility] Last Admin: 02/25/18 09:19 Dose: 81 mg Atorvastatin Calcium (Lipitor) 40 mg PO DIN [facility] Last Admin: 02/25/18 17:08 Dose: 40 mg Bisacodyl (Dulcolax) 10 mg RC Q48H [facility] Last Admin: 02/25/18 09:00 Dose: 10 mg Cholecalciferol (Vitamin D) 2,000 intlu PO DAILY [facility] Last Admin: 02/25/18 09:23 Dose: 2,000 intlu Enoxaparin Sodium (Lovenox) 120 mg SC Q12H SACHIN PRN Reason: Protocol Last Admin: 02/25/18 22:50 Dose: 120 mg Furosemide (Lasix) 40 mg IVP Q12 [facility] Last Admin: 02/25/18 21:45 Dose: 40 mg Hydralazine HCl (Apresoline) 10 mg IVP Q6 PRN PRN Reason: Systolic Blood Pressure Hydromorphone HCl (Dilaudid) 1 mg IVP Q4H PRN PRN Reason: Pain, moderate (4-7) Last Admin: 02/26/18 01:38 Dose: 1 mg Linezolid (Zyvox 600mg/300ml D5w) 600 mg in 300 mls @ 200 mls/hr IVPB Q12 SACHIN PRN Reason: Protocol Stop: 02/28/18 10:46 Last Admin: 02/25/18 22:49 Dose: 200 mls/hr Meropenem (Merrem Iv 1 Gm Premix) 50 mls @ 100 mls/hr IVPB Q12 SACHIN PRN Reason: Protocol Last Admin: 02/25/18 21:44 Dose: 100 mls/hr Levothyroxine Sodium (Synthroid) 25 mcg PO DAILY [facility] Last Admin: 02/25/18 09:23 Dose: 25 mcg Losartan Potassium (Cozaar) 100 mg PO DAILY [facility] Last Admin: 02/25/18 09:19 Dose: 100 mg Metoprolol Tartrate (Lopressor) 50 mg PO BID [facility] Last Admin: 02/25/18 17:07 Dose: 50 mg Pantoprazole Sodium (Protonix Ec Tab) 40 mg PO ACB SACHIN Phenazopyridine HCl (Pyridium) 100 mg PO PC [facility] Last Admin: 02/25/18 17:08 Dose: 100 mg Polyethylene Glycol (Miralax) 17 gm PO BID [facility] Last Admin: 02/25/18 17:07 Dose: 17 gm Quetiapine Fumarate (Seroquel) 50 mg PO [facility] PRN Reason: Protocol Last Admin: 02/25/18 21:45 Dose: 50 mg Sennosides (Senokot Tab) 17.2 mg PO HS [facility] Last Admin: 02/25/18 21:49 Dose: 17.2 mg Tamsulosin HCl (Flomax) 0.4 mg PO DAILY [facility] Last Admin: 02/25/18 09:20 Dose: 0.4 mg - Labs Labs: 02/26/18 05:30 02/26/18 05:30 PT 16.5 SECONDS (9.4-12.5) H 02/26/18 05:30 INR 1.42 (0.93-1.08) H 02/26/18 05:30 APTT 38.4 Seconds (25.1-36.5) H 02/26/18 05:30 Attending/Attestation - Attestation I have personally seen and examined this patient.: Yes I have fully participated in the care of the patient.: Yes I have reviewed all pertinent clinical information, including history, physical exam and plan: Yes
[2018-02-24 18:34] LABS: BASO # 0.01 K/mm3 (0.0-2.0); BASO % 0.1 % (0.0-3.0); EOS # 0.2 (0.0-0.7); EOS % 1.7 % (1.5-5.0); GRAN # 8.26 (1.4-6.5); GRAN % 78.8 % (50.0-68.0); HEMOGLOBIN 15.2 g/dL (14.0-18.0); LYMPH # 1.5 (1.2-3.4); LYMPH % 13.9 % (22.0-35.0); MEAN CELL VOLUME 90.4 fl (80.0-105.0); MEAN CORPUSCULAR HEMOGLOBIN 30.5 pg (25.0-35.0); MEAN CORPUSCULAR HGB CONC 33.7 g/dl (31.0-37.0); MEAN PLATELET VOLUME 9.2 fl (7.0-11.0); MONO # 0.6 (0.1-0.6); MONO % 5.5 % (1.0-6.0); RBC 4.99 10^6/uL (3.5-6.1); RED CELL DISTRIBUTION WIDTH 14.6 % (11.5-14.5); WHITE BLOOD COUNT 10.5 10^3/ul (4.5-11.0)
[2018-02-24] MEDS: POLYETHYLENE GLYCOL 3350 17 GM/Dose PACKET PO SCH ×2 (18:45→18:46)
[2018-02-24] MEDS: Cholecalciferol 1,000 INTLU TAB PO SCH (18:49)
[2018-02-24 18:52] LABS: ALBUMIN 4.1 g/dL (3.0-4.8); ALT/SGPT 20 U/L (7-56); AST/SGOT 24 U/L (17-59); BLOOD UREA NITROGEN 21 mg/dL (7-21); CALCIUM 8.8 mg/dL (8.4-10.5); GFR AFRICAN-AMERICAN > 60; GFR NON-AFRICAN AMERICAN 52
[2018-02-24 18:57] LABS: TROPONIN I 0.05 ng/mL
[2018-02-24] MEDS ORDERED: HYDROmorphone 0.5 mg/0.5 ml ISec IVP STA ×2 (19:00→22:02)
--- NOTE | 2018-02-24 21:22 | CT ---
EXAM: CT Abdomen and Pelvis Without Intravenous Contrast EXAM DATE/TIME: 02/24/2018 5:54 PM CLINICAL HISTORY: The patient age is 63 years old and is male; Pain; Abdominal pain; Localized; Left; Prior surgery; Surgery type: Gastric; Additional info: Left sided abdominal pain Facility exam id and description: Ct abdpelscon abd pelvis w/o po or iv cont TECHNIQUE: Axial computed tomography images of the abdomen and pelvis without intravenous contrast. All CT scans at this facility use one or more dose reduction techniques, viz.: automated exposure control; ma/kV adjustment per patient size (including targeted exams where dose is matched to indication; i.e. head); or iterative reconstruction technique. Coronal and sagittal reformatted images were created and reviewed. COMPARISON: CT - ABD PELVIS W/O PO OR IV CONT 2018-02-12 15:15 FINDINGS: Artifacts: Artifact limits this study. Lung bases: No consolidation. Pleural space: There is a small right pleural effusion. Heart: There is cardiomegaly. ABDOMEN: Liver: No mass. Gallbladder and bile ducts: A gallstone is visualized within the gallbladder. There is additional abnormal increased density within the gallbladder, suggestive of sludge. Pancreas: Normal contour. No ductal dilation. Spleen: No splenomegaly. Adrenals: No mass. Kidneys and ureters: Hypodense cysts are again visualized at the lower pole the right kidney. The largest cyst measures 5.4 x 4.8 x 4.5 cm exophytic to the lower pole the right kidney. There is no hydronephrosis or obstructive calculi bilaterally. A retroaortic left renal vein is identified. Stomach and bowel: Postoperative changes are identified, consistent with gastric left than surgery. PELVIS: Appendix: There is no distention of the visualized portion of the appendix. Bladder: No stones. There is mild progressive stranding adjacent to the bladder. Cystitis is considered. Reproductive: Unremarkable as visualized. ABDOMEN and PELVIS: Intraperitoneal space: No free air. Bones/joints: Severe narrowing of the thecal sac is visualized the L3 vertebral level with a disc herniation/extrusion. Hypertrophic degenerative changes are noted within the spine. Soft tissues: There is severe atrophy of the rectus abdominis musculature. Vasculature: See above. Lymph nodes: Enlarged bilateral inguinal lymph nodes are identified, nonspecific as to etiology. On the right side, this measured 3.1 x 2.2 cm. There is no significant retroperitoneal or intrapelvic lymphadenopathy. IMPRESSION: 1. There is mild progressive stranding adjacent to the bladder. Cystitis is considered. 2. A gallstone is visualized within the gallbladder. There is additional abnormal increased density within the gallbladder, suggestive of sludge. 3. Hypodense cysts are again visualized at the lower pole the right kidney. 4. Enlarged bilateral inguinal lymph nodes are identified, nonspecific as to etiology. 5. Severe narrowing of the thecal sac is visualized the L3 vertebral level with a disc herniation/extrusion. This can be further evaluated with MRI. 6. There is a small right pleural effusion. 7. There is cardiomegaly. 8. Additional CT findings described above.
[2018-02-24] MEDS: Metoprolol 1 mg/ml Inj IVP SCH (22:16)
[2018-02-25] MEDS ORDERED: HYDROmorphone 0.5 mg/0.5 ml ISec IVP STA (01:14)
[2018-02-25] MEDS: Albuterol-Ipratrop 3 mg / 0.5 (3 ml) UD IH SCH ×3 (01:37→20:00)
[2018-02-25] MEDS: Metoprolol 1 mg/ml Inj IVP SCH ×2 (04:53→09:20)
[2018-02-25 06:04] LABS: BASO # 0.01 K/mm3 (0.0-2.0); BASO % 0.1 % (0.0-3.0); EOS # 0.1 (0.0-0.7); EOS % 0.8 % (1.5-5.0); GRAN # 8.59 (1.4-6.5); GRAN % 84.9 % (50.0-68.0); HEMOGLOBIN 14.8 g/dL (14.0-18.0); LYMPH % 9.9 % (22.0-35.0); MEAN CELL VOLUME 91.8 fl (80.0-105.0); MEAN CORPUSCULAR HEMOGLOBIN 30.3 pg (25.0-35.0); MEAN PLATELET VOLUME 8.7 fl (7.0-11.0); MONO # 0.4 (0.1-0.6); MONO % 4.3 % (1.0-6.0); RBC 4.88 10^6/uL (3.5-6.1); RED CELL DISTRIBUTION WIDTH 14.8 % (11.5-14.5); WHITE BLOOD COUNT 10.1 10^3/ul (4.5-11.0)
[2018-02-25 06:25] LABS: FREE T4 1.42 ng/dL (0.78-2.19)
[2018-02-25] MEDS: Acetylcysteine 20% Inhal Soln (4ml) IH SCH ×2 (07:02→20:00)
[2018-02-25 07:24] LABS: ALB/GLOB RATIO 1.2 (1.1-1.8); ALBUMIN 4.1 g/dL (3.0-4.8); ALT/SGPT 22 U/L (7-56); AST/SGOT 23 U/L (17-59); BILIRUBIN,DIRECT 0.5 mg/dL (0.0-0.4); BLOOD UREA NITROGEN 21 mg/dL (7-21); CALCIUM 8.9 mg/dL (8.4-10.5); GFR AFRICAN-AMERICAN > 60; GFR NON-AFRICAN AMERICAN 52
[2018-02-25] MEDS ORDERED: Potassium Chloride 40 mEq/30 ml LIQ UD PO ONE (07:43)
--- NOTE | 2018-02-25 07:48 | CARD ---
APPROVED REPORT EKG Measurement Heart [id number] <Conclusion> Atrial fibrillation with rapid ventricular response [facility]
[2018-02-25] MEDS: Meropenem IV 1 gm in NS 50 ML IVPB SCH ×2 (09:21→21:44)
[2018-02-25] MEDS: POLYETHYLENE GLYCOL 3350 17 GM/Dose PACKET PO SCH ×2 (09:21→17:07)
[2018-02-25] MEDS: Cholecalciferol 1,000 INTLU TAB PO SCH (09:23)
[2018-02-25] MEDS: Linezolid 600 mg in D5W 300 ml 600 MG/300 ML BAG IVPB SCH ×2 (09:23→22:49)
[2018-02-25] MEDS: Levothyroxine 25 MCG TAB PO SCH (09:23)
--- NOTE | 2018-02-25 10:24 | CP.PCM.PN ---
<Negrito Andrea - Last Filed: 02/25/18 11:11> Subjective - Date & Time of Evaluation Date of Evaluation: 02/25/18 Time of Evaluation: 07:30 - Subjective Subjective: Negrito Andrea DO PGY1 - IM Progress Note for Dr. Brown Patient seen and examined at bedside. Overnight, patient was agitated, uncomfortable, and became tachycardic, and was started on IV lopressor, with subsequent improvement in his vitals. Patient still complaining of pain in his back. Patient appears very frustrated by his inability to speak and communicate effectively. He had three bowel movements yesterday. Patient still uncomfortable when lying flat, but says he will try to tolerate the MRI today, but requesting premedication for pain. Further ROS was negative, but limited by his aphasia. Objective - Vital Signs/Intake and Output Vital Signs (last 24 hours): Temp Pulse Resp BP Pulse Ox 98 F 73 20 143/81 95 02/25/18 08:00 02/25/18 09:20 02/25/18 08:00 02/25/18 09:20 02/25/18 08:00 Intake and Output: 02/25/18 02/25/18 06:59 18:59 Intake Total 180 120 Output Total 900 200 Balance -720 -80 - Medications Medications: Current Medications Acetaminophen (Tylenol 325mg Tab) 650 mg PO Q4H PRN PRN Reason: pain and fever Last Admin: 02/23/18 20:00 Dose: 650 mg Acetylcysteine (Acetylcysteine 20%) 4 ml IH BIDRESP [facility] Last Admin: 02/25/18 07:02 Dose: Not Given Albuterol/Ipratropium (Duoneb 3 Mg/0.5 Mg (3 Ml) Ud) 3 ml IH [id number] [facility] Last Admin: 02/25/18 07:03 Dose: Not Given Albuterol/Ipratropium (Duoneb 3 Mg/0.5 Mg (3 Ml) Ud) 3 ml IH Q2H PRN PRN Reason: Shortness of Breath Aspirin (Aspirin Chewable) 81 mg PO DAILY [facility] Last Admin: 02/25/18 09:19 Dose: 81 mg Atorvastatin Calcium (Lipitor) 40 mg PO DIN [facility] Last Admin: 02/24/18 18:45 Dose: Not Given Bisacodyl (Dulcolax) 10 mg RC Q48H [facility] Cholecalciferol (Vitamin D) 2,000 intlu PO DAILY [facility] Last Admin: 02/25/18 09:23 Dose: 2,000 intlu Furosemide (Lasix) 40 mg IVP Q12 [facility] Last Admin: 02/25/18 09:20 Dose: 40 mg Heparin Sodium (Porcine) (Heparin) 5,000 units SC Q8 [facility] PRN Reason: Protocol Last Admin: 02/25/18 06:06 Dose: 5,000 units Hydromorphone HCl (Dilaudid) 1 mg IVP Q4H PRN PRN Reason: Pain, moderate (4-7) Nicardipine HCl (Cardene Iv Premix) 20 mg in 200 mls @ 50 mls/hr IV .Q4H PRN; Protocol; 5 MG/HR PRN Reason: TITRATE PER MD ORDER Last Titration: 02/21/18 12:30 Dose: 0 mg/hr, 0 mls/hr Linezolid (Zyvox 600mg/300ml D5w) 600 mg in 300 mls @ 200 mls/hr IVPB Q12 [facility] PRN Reason: Protocol Stop: 02/28/18 10:46 Last Admin: 02/25/18 09:23 Dose: 200 mls/hr Meropenem (Merrem Iv 1 Gm Premix) 50 mls @ 100 mls/hr IVPB Q12 [facility] PRN Reason: Protocol Last Admin: 02/25/18 09:21 Dose: 100 mls/hr Dexmedetomidine HCl (Precedex 400mcg/100ml) 400 mcg in 100 mls @ 7.303 mls/hr IV .[id number] PRN; Protocol; 0.2 MCG/KG/HR PRN Reason: Agitation Last Titration: 02/24/18 07:30 Dose: 0 mcg/kg/hr, 0 mls/hr Potassium Chloride (Potassium Chloride 10 Meq/100 Ml) 10 meq in 100 mls @ 50 mls/hr IVPB ONCE ONE Stop: 02/25/18 10:43 Last Admin: 02/25/18 09:22 Dose: 50 mls/hr Levothyroxine Sodium (Synthroid) 25 mcg PO DAILY [facility] Last Admin: 02/25/18 09:23 Dose: 25 mcg Lorazepam (Ativan) 1 mg IVP ONCE PRN; Protocol PRN Reason: Agitation Losartan Potassium (Cozaar) 100 mg PO DAILY [facility] Last Admin: 02/25/18 09:19 Dose: 100 mg Metoprolol Tartrate (Lopressor) 5 mg IVP Q6H [facility] Last Admin: 02/25/18 09:20 Dose: 5 mg Pantoprazole Sodium (Protonix Ec Tab) 40 mg PO ACB [facility] Phenazopyridine HCl (Pyridium) 100 mg PO PC [facility] Last Admin: 02/25/18 09:22 Dose: 100 mg Polyethylene Glycol (Miralax) 17 gm PO BID [facility] Last Admin: 02/25/18 09:21 Dose: 17 gm Quetiapine Fumarate (Seroquel) 50 mg PO HS [facility] PRN Reason: Protocol Last Admin: 02/24/18 23:00 Dose: 50 mg Sennosides (Senokot Tab) 17.2 mg PO HS [facility] Last Admin: 02/24/18 22:55 Dose: 17.2 mg Tamsulosin HCl (Flomax) 0.4 mg PO DAILY [facility] Last Admin: 02/25/18 09:20 Dose: 0.4 mg - Labs Labs: 02/25/18 05:20 02/25/18 05:20 PT 17.3 SECONDS (9.4-12.5) H 02/20/18 17:49 INR 1.50 (0.93-1.08) H 02/20/18 17:49 APTT 31.6 Seconds (25.1-36.5) 02/20/18 17:49 - Additional Findings Additional findings: - Constitutional Appears: Non-toxic, No Acute Distress - Head Exam Head Exam: ATRAUMATIC, NORMOCEPHALIC - Eye Exam Eye Exam: EOMI Additional comments: Right sided ptosis - ENT Exam ENT Exam: Mucous Membranes Moist - Neck Exam Neck Exam: Normal Inspection - Respiratory Exam Respiratory Exam: Clear to Ausculation Bilateral - Cardiovascular Exam Cardiovascular Exam: RRR. absent: Bradycardia, Tachycardia - GI/Abdominal Exam GI & Abdominal Exam: Soft. absent: Distended, Firm, Guarding, Rigid, Tenderness - Extremities Exam Additional comments: RLE with ansley wrap from 02/23, appears CDI LLE with chronic venous stasis changes and lymphedema; small optifoam dressing over anterior sheppard since 02/23 appears CDI No calf tenderness - Neurological Exam Neuro motor strength exam: Left Upper Extremity: 5, Right Upper Extremity: 3, Left Lower Extremity: 5, Right Lower Extremity: 4 Additional comments: Asleep, easily arousable, obeying simple commands Dysarthric, cannot produce any understandable words Right sided facial droop/weakness No clonus b/l - Psychiatric Exam Additional comments: Cannot assess - Skin Skin Exam: Dry, Intact Assessment and Plan - Assessment and Plan (Free Text) Assessment: This is a 63 year old male with PMHx asthma, morbid obesity, CARMELA, CHF, A-fib on coumadin, renal insufficiency, chronic lymphedema, medication non-compliance who presented with right sided weakness and dysarthria. He was given tPA at approximately 18:30 on 02/20/18. Patient remains in ICU s/p tPA, still dysarthric Plan: 1. Acute CVA s/p tPA -Initial Head CT showed multifocal chronic lacunes in the bilateral basal ganglia; no bleed; interval acute or subacute infarct can't be excluded -Multiple repeat head CT's show no change -MRI is ordered, will attempt MRI today, premedicate for pain and agitation -Venous duplex lower extremities done, but not yet read -Per discussion with neurology, okay to start anticoagulation for afib -Continue PT, OT, and ST -Cardiology consulted, appreciate recs -Neuro consulted, appreciate recs 2. Leg Cellulitis (MRSA and Pseudomonas) -Continue zyvox and merrem per ID -No leukocytosis, no fever -Podiatry consulted for local wound care -ID consulted, appreciate recs 3. h/o CHF -Does not appear fluid overloaded -Continue lasix 4. h/o A-fib on coumadin -Rate controlled -Per neuro, okay to start anticoagulation -Start eliquis 5mg PO BID 5. h/o renal insufficiency -Patient presented with apparent TROY -Creatinine trended down, now stable, wnl 6. h/o asthma -Decreased breath sounds in all lung saini, with faint wheezing -No apparent shortness of breath -Continue duoneb and mucomyst 7. Dysuria -Abdominal CT done yesterday shows stranding around urinary bladder -UA does not appear to show infection, but patient was already on broad spectrum antibiotics -f/u urine culture -Continue IV antibiotics 8. Abdominal pain -Patient reportedly complaining of intermittent abdominal pain -Patient had 3 BM's yesterday per nursing staff -Continue bowel regimen -Request GI consult DVT Ppx: Eliquis GI Ppx: Protonix Discussed with Dr. Brown <Rashad Brown U - Last Filed: 02/26/18 15:49> Objective - Vital Signs/Intake and Output Vital Signs (last 24 hours): Temp Pulse Resp BP Pulse Ox 97.8 F 75 20 149/69 97 02/26/18 11:57 02/26/18 11:57 02/26/18 11:57 02/26/18 11:57 02/26/18 06:00 Intake and Output: 02/26/18 02/26/18 06:59 18:59 Intake Total 300 Output Total 1600 Balance -1300 - Medications Medications: Current Medications Acetaminophen (Tylenol 325mg Tab) 650 mg PO Q4H PRN PRN Reason: pain and fever Last Admin: 02/23/18 20:00 Dose: 650 mg Acetylcysteine (Acetylcysteine 20%) 4 ml IH BIDRESP [facility] Last Admin: 02/26/18 07:25 Dose: 4 ml Albuterol/Ipratropium (Duoneb 3 Mg/0.5 Mg (3 Ml) Ud) 3 ml IH [id number] [facility] Last Admin: 02/26/18 13:12 Dose: 3 ml Albuterol/Ipratropium (Duoneb 3 Mg/0.5 Mg (3 Ml) Ud) 3 ml IH Q2H PRN PRN Reason: Shortness of Breath Apixaban (Eliquis) 5 mg PO BID [facility] PRN Reason: Protocol Aspirin (Aspirin Chewable) 81 mg PO DAILY [facility] Last Admin: 02/26/18 10:22 Dose: 81 mg Atorvastatin Calcium (Lipitor) 40 mg PO DIN [facility] Last Admin: 02/25/18 17:08 Dose: 40 mg Bisacodyl (Dulcolax) 10 mg RC Q48H [facility] Last Admin: 02/25/18 09:00 Dose: 10 mg Cholecalciferol (Vitamin D) 2,000 intlu PO DAILY [facility] Last Admin: 02/26/18 10:23 Dose: 2,000 intlu Furosemide (Lasix) 40 mg IVP DAILY [facility] Hydromorphone HCl (Dilaudid) 1 mg IVP Q4H PRN PRN Reason: Pain, moderate (4-7) Last Admin: 02/26/18 01:38 Dose: 1 mg Linezolid (Zyvox 600mg/300ml D5w) 600 mg in 300 mls @ 200 mls/hr IVPB Q12 [facility] PRN Reason: Protocol Stop: 02/28/18 10:46 Last Admin: 02/26/18 10:24 Dose: 200 mls/hr Meropenem (Merrem Iv 1 Gm Premix) 50 mls @ 100 mls/hr IVPB Q12 [facility] PRN Reason: Protocol Last Admin: 02/26/18 12:45 Dose: 100 mls/hr Levothyroxine Sodium (Synthroid) 25 mcg PO DAILY [facility] Last Admin: 02/26/18 10:24 Dose: 25 mcg Losartan Potassium (Cozaar) 50 mg PO DAILY [facility] Metoprolol Tartrate (Lopressor) 50 mg PO BID [facility] Last Admin: 02/26/18 10:25 Dose: 50 mg Pantoprazole Sodium (Protonix Ec Tab) 40 mg PO ACB [facility] Last Admin: 02/26/18 10:24 Dose: 40 mg Polyethylene Glycol (Miralax) 17 gm PO BID [facility] Last Admin: 02/26/18 10:24 Dose: 17 gm Potassium Chloride (K-Dur 20 Meq Er Tab) 20 meq PO DAILY [facility] Last Admin: 02/26/18 12:44 Dose: Not Given Quetiapine Fumarate (Seroquel) 50 mg PO HS [facility] PRN Reason: Protocol Last Admin: 02/25/18 21:45 Dose: 50 mg Sennosides (Senokot Tab) 17.2 mg PO HS [facility] Last Admin: 02/25/18 21:49 Dose: 17.2 mg Tamsulosin HCl (Flomax) 0.4 mg PO DAILY [facility] Last Admin: 02/26/18 10:24 Dose: 0.4 mg - Labs Labs: 02/26/18 05:30 02/26/18 05:30 PT 16.5 SECONDS (9.4-12.5) H 02/26/18 05:30 INR 1.42 (0.93-1.08) H 02/26/18 05:30 APTT 38.4 Seconds (25.1-36.5) H 02/26/18 05:30 Attending/Attestation - Attestation I have personally seen and examined this patient.: Yes I have fully participated in the care of the patient.: Yes I have reviewed all pertinent clinical information, including history, physical exam and plan: Yes Notes (Text): Please see/read my dictated notes.
--- NOTE | 2018-02-25 10:46 | RAD ---
HISTORY: abdominal pain COMPARISON: 02/10/2018 FINDINGS: BOWEL: Normal. No obstruction. No free air. BONES: Normal. OTHER FINDINGS: A lap band is in place. The tubing is intact. 15 mm gallstone adjacent to the lap band port IMPRESSION: No active disease.
--- NOTE | 2018-02-25 11:09 | CP.CCUPN ---
<Himanshu Fairchild Avelina - Last Filed: 02/25/18 11:22> CCU Subjective - Physician Review Events Since Last Encounter (Free Text): 02/25/18 09:00A Patient seen and examined at bedside. Of note, patient was kept in the ICU yesterday for vitals monitoring because around 17:00, patient became acutely agitated, started pointing to the left side of his abdomen and gave a 'thumbs up ' for pain. Patient was given IV Tylenol and two doses of dilaudid, and he is now resting comfortably since 23:00 last night. Patient offers no complaints. CCU Objective - Vital Signs / Intake & Output Vital Signs (Last 4 hours): Vital Signs Temp Pulse Resp BP Pulse Ox 02/25/18 09:20 73 143/81 02/25/18 08:00 98 F 84 20 148/80 95 Intake and Output (Last 8hrs): Intake & Output 02/24/18 02/25/18 02/25/18 22:59 06:59 14:59 Intake Total 1220 180 120 Output Total 650 900 200 Balance 570 -720 -80 Weight 138.431 kg Intake: IV 500 Right Upper arm 500 Oral 720 180 120 Output: Urine 650 900 200 Urethral ([place]) 900 200 Urine, Voided 650 Other: # Voids Urine, Voided 5 # Bowel Movements 4 0 - Medications Active Medications: Active Medications Generic Name Dose Route Start Last Admin Trade Name Freq PRN Reason Stop Dose Admin Acetaminophen 650 mg 02/23/18 19:46 02/23/18 20:00 Tylenol 325mg Tab PO 650 mg Q4H PRN Administration pain and fever Acetylcysteine 4 ml 02/24/18 11:45 02/25/18 07:02 Acetylcysteine 20% IH Not Given BIDRESP SACHIN Albuterol/Ipratropium 3 ml 02/24/18 14:00 02/25/18 07:03 Duoneb 3 Mg/0.5 Mg (3 Ml) Ud IH Not Given [id number] SACHIN Albuterol/Ipratropium 3 ml 02/24/18 11:33 Duoneb 3 Mg/0.5 Mg (3 Ml) Ud IH Q2H PRN Shortness of Breath Aspirin 81 mg 02/24/18 11:00 02/25/18 09:19 Aspirin Chewable PO 81 mg DAILY SACHIN Administration Atorvastatin Calcium 40 mg 06/18/18 17:00 02/24/18 18:45 Lipitor PO Not Given DIN SACHIN Bisacodyl 10 mg 02/25/18 07:00 Dulcolax RC Q48H SACHIN Cholecalciferol 2,000 intlu 02/24/18 12:00 02/25/18 09:23 Vitamin D PO 2,000 intlu DAILY SACHIN Administration Furosemide 40 mg 02/24/18 22:00 02/25/18 09:20 Lasix IVP 40 mg Q12 SACHIN Administration Heparin Sodium (Porcine) 5,000 units 02/24/18 22:00 02/25/18 06:06 Heparin SC 5,000 units Q8 SACHIN Administration Protocol Hydromorphone HCl 1 mg 02/25/18 00:37 Dilaudid IVP Q4H PRN Pain, moderate (4-7) Linezolid 600 mg in 300 mls @ 200 mls/hr 02/21/18 10:45 02/25/18 09:23 Zyvox 600mg/300ml D5w IVPB 02/28/18 10:46 200 mls/hr Q12 SACHIN Administration Protocol Meropenem 50 mls @ 100 mls/hr 02/21/18 10:45 02/25/18 09:21 Merrem Iv 1 Gm Premix IVPB 100 mls/hr Q12 SACHIN Administration Protocol Levothyroxine Sodium 25 mcg 02/24/18 12:00 02/25/18 09:23 Synthroid PO 25 mcg DAILY SACHIN Administration Lorazepam 1 mg 02/25/18 10:09 Ativan IVP ONCE PRN Agitation Protocol Losartan Potassium 100 mg 02/24/18 12:00 02/25/18 09:19 Cozaar PO 100 mg DAILY SACHIN Administration Metoprolol Tartrate 5 mg 02/24/18 21:45 02/25/18 09:20 Lopressor IVP 5 mg Q6H SACHIN Administration Pantoprazole Sodium 40 mg 02/26/18 07:30 Protonix Ec Tab PO ACB SACHIN Phenazopyridine HCl 100 mg 02/24/18 14:00 02/25/18 09:22 Pyridium PO 100 mg PC SACHIN Administration Polyethylene Glycol 17 gm 02/24/18 12:30 02/25/18 09:21 Miralax PO 17 gm BID SACHIN Administration Quetiapine Fumarate 50 mg 02/24/18 22:00 02/24/18 23:00 Seroquel PO 50 mg HS SACHIN Administration Protocol Sennosides 17.2 mg 02/24/18 22:00 02/24/18 22:55 Senokot Tab PO 17.2 mg HS SACHIN Administration Tamsulosin HCl 0.4 mg 02/24/18 12:00 02/25/18 09:20 Flomax PO 0.4 mg DAILY SACHIN Administration - Patient Studies Lab Studies: Microbiology Studies 02/24/18 00:08 Urine Culture - Final Urine,Clean Catch No Growth (<1,000 CFU/ML) 02/21/18 21:41 Blood Culture - Preliminary Blood-Venous NO GROWTH AFTER 3 DAYS 02/21/18 21:41 Blood Culture - Preliminary Blood-Venous NO GROWTH AFTER 3 DAYS Lab Studies 02/25/18 02/25/18 02/25/18 Range/Units 07:50 07:00 05:20 WBC (4.5-11.0) 10^3/ul RBC (3.5-6.1) 10^6/uL Hgb (14.0-18.0) g/dL Hct (42.0-52.0) % MCV (80.0-105.0) fl MCH (25.0-35.0) pg MCHC (31.0-37.0) g/dl RDW (11.5-14.5) % Plt Count (120.0-450.0) 10^3/uL MPV (7.0-11.0) fl Gran % (50.0-68.0) % Lymph % (Auto) (22.0-35.0) % [place] % (Auto) (1.0-6.0) % Eos % (Auto) (1.5-5.0) % Baso % (Auto) (0.0-3.0) % Gran # (1.4-6.5) Lymph # (Auto) (1.2-3.4) [place] # (Auto) (0.1-0.6) Eos # (Auto) (0.0-0.7) Baso # (Auto) (0.0-2.0) K/mm3 Sodium (132-148) mmol/L Potassium (3.6-5.0) mmol/L Chloride (98-107) mmol/L Carbon Dioxide (21-33) mmol/L Anion Gap (10-20) BUN (7-21) mg/dL Creatinine (0.8-1.5) mg/dl Est GFR ( Amer) Est GFR (Non-Af Amer) POC Glucose (mg/dL) 101 (65-110) mg/dL Random Glucose (70-110) mg/dL Lactic Acid (0.7-2.1) mmol/L Calcium (8.4-10.5) mg/dL Phosphorus (2.5-4.5) mg/dL Magnesium (1.7-2.2) mg/dL Total Bilirubin (0.2-1.3) mg/dL Direct Bilirubin 0.9 H (0.0-0.4) mg/dL AST (17-59) U/L ALT (7-56) U/L Alkaline Phosphatase (38-126) U/L Troponin I ng/mL Total Protein (5.8-8.3) g/dL Albumin (3.0-4.8) g/dL Globulin gm/dL Albumin/Globulin Ratio (1.1-1.8) Prostate Specific Ag (0.00-2.5) ng/mL Free T4 1.42 (0.78-2.19) ng/dL Thyroxine (T4) 6.0 (5.5-11.0) ug/dL TSH 3rd Generation 3.63 (0.46-4.68) mIU/mL Urine Color (YELLOW) Urine Appearance (CLEAR) Urine pH (4.7-8.0) Ur Specific [place] (1.005-1.035) Urine Protein (<30 mg/dL) mg/dL Urine Glucose (UA) (NEGATIVE) mg/dL Urine Ketones (NEGATIVE) mg/dL Urine Blood (NEGATIVE) Urine Nitrate (NEGATIVE) Urine Bilirubin (NEGATIVE) Urine Urobilinogen (<1 E.U./dL) E.U./dL Ur Leukocyte Esterase (NEGATIVE) Adeel/uL Urine RBC (0-2) /hpf Urine WBC (0-6) /hpf Ur Epithelial Cells (0-5) /hpf Urine Bacteria (NEG) 02/25/18 02/25/18 02/25/18 Range/Units 05:20 05:20 00:56 WBC 10.1 (4.5-11.0) 10^3/ul RBC 4.88 (3.5-6.1) 10^6/uL Hgb 14.8 (14.0-18.0) g/dL Hct 44.8 (42.0-52.0) % MCV 91.8 (80.0-105.0) fl MCH 30.3 (25.0-35.0) pg MCHC 33.0 (31.0-37.0) g/dl RDW 14.8 H (11.5-14.5) % Plt Count 133 (120.0-450.0) 10^3/uL MPV 8.7 (7.0-11.0) fl Gran % 84.9 H (50.0-68.0) % Lymph % (Auto) 9.9 L (22.0-35.0) % [place] % (Auto) 4.3 (1.0-6.0) % Eos % (Auto) 0.8 L (1.5-5.0) % Baso % (Auto) 0.1 (0.0-3.0) % Gran # 8.59 H (1.4-6.5) Lymph # (Auto) 1.0 L (1.2-3.4) [place] # (Auto) 0.4 (0.1-0.6) Eos # (Auto) 0.1 (0.0-0.7) Baso # (Auto) 0.01 (0.0-2.0) K/mm3 Sodium 144 (132-148) mmol/L Potassium 3.8 (3.6-5.0) mmol/L Chloride 99 (98-107) mmol/L Carbon Dioxide 32 (21-33) mmol/L Anion Gap 17 (10-20) BUN 21 (7-21) mg/dL Creatinine 1.4 (0.8-1.5) mg/dl Est GFR ( Amer) > 60 Est GFR (Non-Af Amer) 52 POC Glucose (mg/dL) 144 H (65-110) mg/dL Random Glucose 127 H (70-110) mg/dL Lactic Acid (0.7-2.1) mmol/L Calcium 8.9 (8.4-10.5) mg/dL Phosphorus 3.5 (2.5-4.5) mg/dL Magnesium 2.1 (1.7-2.2) mg/dL Total Bilirubin 3.2 H (0.2-1.3) mg/dL Direct Bilirubin 0.5 H (0.0-0.4) mg/dL AST 23 (17-59) U/L ALT 22 (7-56) U/L Alkaline Phosphatase 75 (38-126) U/L Troponin I ng/mL Total Protein 7.6 (5.8-8.3) g/dL Albumin 4.1 (3.0-4.8) g/dL Globulin 3.5 gm/dL Albumin/Globulin Ratio 1.2 (1.1-1.8) Prostate Specific Ag (0.00-2.5) ng/mL Free T4 (0.78-2.19) ng/dL Thyroxine (T4) (5.5-11.0) ug/dL TSH 3rd Generation (0.46-4.68) mIU/mL Urine Color (YELLOW) Urine Appearance (CLEAR) Urine pH (4.7-8.0) Ur Specific [place] (1.005-1.035) Urine Protein (<30 mg/dL) mg/dL Urine Glucose (UA) (NEGATIVE) mg/dL Urine Ketones (NEGATIVE) mg/dL Urine Blood (NEGATIVE) Urine Nitrate (NEGATIVE) Urine Bilirubin (NEGATIVE) Urine Urobilinogen (<1 E.U./dL) E.U./dL Ur Leukocyte Esterase (NEGATIVE) Adeel/uL Urine RBC (0-2) /hpf Urine WBC (0-6) /hpf Ur Epithelial Cells (0-5) /hpf Urine Bacteria (NEG) 02/24/18 02/24/18 02/24/18 Range/Units 18:27 18:27 18:27 WBC 10.5 D (4.5-11.0) 10^3/ul RBC 4.99 (3.5-6.1) 10^6/uL Hgb 15.2 D (14.0-18.0) g/dL Hct 45.1 (42.0-52.0) % MCV 90.4 (80.0-105.0) fl MCH 30.5 (25.0-35.0) pg MCHC 33.7 (31.0-37.0) g/dl RDW 14.6 H (11.5-14.5) % Plt Count 143 (120.0-450.0) 10^3/uL MPV 9.2 (7.0-11.0) fl Gran % 78.8 H (50.0-68.0) % Lymph % (Auto) 13.9 L (22.0-35.0) % [place] % (Auto) 5.5 (1.0-6.0) % Eos % (Auto) 1.7 (1.5-5.0) % Baso % (Auto) 0.1 (0.0-3.0) % Gran # 8.26 H (1.4-6.5) Lymph # (Auto) 1.5 (1.2-3.4) [place] # (Auto) 0.6 (0.1-0.6) Eos # (Auto) 0.2 (0.0-0.7) Baso # (Auto) 0.01 (0.0-2.0) K/mm3 Sodium 144 (132-148) mmol/L Potassium 3.4 L (3.6-5.0) mmol/L Chloride 98 (98-107) mmol/L Carbon Dioxide 30 (21-33) mmol/L Anion Gap 19 (10-20) BUN 21 (7-21) mg/dL Creatinine 1.4 (0.8-1.5) mg/dl Est GFR ( Amer) > 60 Est GFR (Non-Af Amer) 52 POC Glucose (mg/dL) (65-110) mg/dL Random Glucose 113 H (70-110) mg/dL Lactic Acid 1.3 (0.7-2.1) mmol/L Calcium 8.8 (8.4-10.5) mg/dL Phosphorus (2.5-4.5) mg/dL Magnesium (1.7-2.2) mg/dL Total Bilirubin 4.3 H (0.2-1.3) mg/dL Direct Bilirubin (0.0-0.4) mg/dL AST 24 (17-59) U/L ALT 20 (7-56) U/L Alkaline Phosphatase 88 (38-126) U/L Troponin I 0.05 D ng/mL Total Protein 8.0 (5.8-8.3) g/dL Albumin 4.1 (3.0-4.8) g/dL Globulin 3.9 gm/dL Albumin/Globulin Ratio 1.0 L (1.1-1.8) Prostate Specific Ag (0.00-2.5) ng/mL Free T4 (0.78-2.19) ng/dL Thyroxine (T4) (5.5-11.0) ug/dL TSH 3rd Generation (0.46-4.68) mIU/mL Urine Color (YELLOW) Urine Appearance (CLEAR) Urine pH (4.7-8.0) Ur Specific [place] (1.005-1.035) Urine Protein (<30 mg/dL) mg/dL Urine Glucose (UA) (NEGATIVE) mg/dL Urine Ketones (NEGATIVE) mg/dL Urine Blood (NEGATIVE) Urine Nitrate (NEGATIVE) Urine Bilirubin (NEGATIVE) Urine Urobilinogen (<1 E.U./dL) E.U./dL Ur Leukocyte Esterase (NEGATIVE) Adeel/uL Urine RBC (0-2) /hpf Urine WBC (0-6) /hpf Ur Epithelial Cells (0-5) /hpf Urine Bacteria (NEG) 02/24/18 02/24/18 02/24/18 Range/Units 11:37 11:15 07:30 WBC (4.5-11.0) 10^3/ul RBC (3.5-6.1) 10^6/uL Hgb (14.0-18.0) g/dL Hct (42.0-52.0) % MCV (80.0-105.0) fl MCH (25.0-35.0) pg MCHC (31.0-37.0) g/dl RDW (11.5-14.5) % Plt Count (120.0-450.0) 10^3/uL MPV (7.0-11.0) fl Gran % (50.0-68.0) % Lymph % (Auto) (22.0-35.0) % [place] % (Auto) (1.0-6.0) % Eos % (Auto) (1.5-5.0) % Baso % (Auto) (0.0-3.0) % Gran # (1.4-6.5) Lymph # (Auto) (1.2-3.4) [place] # (Auto) (0.1-0.6) Eos # (Auto) (0.0-0.7) Baso # (Auto) (0.0-2.0) K/mm3 Sodium (132-148) mmol/L Potassium (3.6-5.0) mmol/L Chloride (98-107) mmol/L Carbon Dioxide (21-33) mmol/L Anion Gap (10-20) BUN (7-21) mg/dL Creatinine (0.8-1.5) mg/dl Est GFR ( Amer) Est GFR (Non-Af Amer) POC Glucose (mg/dL) 97 (65-110) mg/dL Random Glucose (70-110) mg/dL Lactic Acid (0.7-2.1) mmol/L Calcium (8.4-10.5) mg/dL Phosphorus (2.5-4.5) mg/dL Magnesium (1.7-2.2) mg/dL Total Bilirubin (0.2-1.3) mg/dL Direct Bilirubin (0.0-0.4) mg/dL AST (17-59) U/L ALT (7-56) U/L Alkaline Phosphatase (38-126) U/L Troponin I ng/mL Total Protein (5.8-8.3) g/dL Albumin (3.0-4.8) g/dL Globulin gm/dL Albumin/Globulin Ratio (1.1-1.8) Prostate Specific Ag 0.7 (0.00-2.5) ng/mL Free T4 (0.78-2.19) ng/dL Thyroxine (T4) (5.5-11.0) ug/dL TSH 3rd Generation (0.46-4.68) mIU/mL Urine Color Yellow (YELLOW) Urine Appearance Clear (CLEAR) Urine pH 7.0 (4.7-8.0) Ur Specific [place] 1.015 (1.005-1.035) Urine Protein 100 H (<30 mg/dL) mg/dL Urine Glucose (UA) Negative (NEGATIVE) mg/dL Urine Ketones Negative (NEGATIVE) mg/dL Urine Blood Small H (NEGATIVE) Urine Nitrate Negative (NEGATIVE) Urine Bilirubin Negative (NEGATIVE) Urine Urobilinogen 1.0 H (<1 E.U./dL) E.U./dL Ur Leukocyte Esterase Negative (NEGATIVE) Adeel/uL Urine RBC 2 - 5 (0-2) /hpf Urine WBC 0 - 2 (0-6) /hpf Ur Epithelial Cells None (0-5) /hpf Urine Bacteria Few (NEG) Laboratory Results - last 24 hr 02/24/18 02/24/18 02/24/18 07:30 11:15 11:37 WBC RBC Hgb Hct MCV MCH MCHC RDW Plt Count MPV Gran % Lymph % (Auto) [place] % (Auto) Eos % (Auto) Baso % (Auto) Gran # Lymph # (Auto) [place] # (Auto) Eos # (Auto) Baso # (Auto) Sodium Potassium Chloride Carbon Dioxide Anion Gap BUN Creatinine Est GFR ( Amer) Est GFR (Non-Af Amer) POC Glucose (mg/dL) 97 Random Glucose Lactic Acid Calcium Phosphorus Magnesium Total Bilirubin Direct Bilirubin AST ALT Alkaline Phosphatase Troponin I Total Protein Albumin Globulin Albumin/Globulin Ratio Prostate Specific Ag 0.7 Free T4 Thyroxine (T4) TSH 3rd Generation Urine Color Yellow Urine Appearance Clear Urine pH 7.0 Ur Specific [place] 1.015 Urine Protein 100 H Urine Glucose (UA) Negative Urine Ketones Negative Urine Blood Small H Urine Nitrate Negative Urine Bilirubin Negative Urine Urobilinogen 1.0 H Ur Leukocyte Esterase Negative Urine RBC 2 - 5 Urine WBC 0 - 2 Ur Epithelial Cells None Urine Bacteria Few 02/24/18 02/24/18 02/24/18 18:27 18:27 18:27 WBC 10.5 D RBC 4.99 Hgb 15.2 D Hct 45.1 MCV 90.4 MCH 30.5 MCHC 33.7 RDW 14.6 H Plt Count 143 MPV 9.2 Gran % 78.8 H Lymph % (Auto) 13.9 L [place] % (Auto) 5.5 Eos % (Auto) 1.7 Baso % (Auto) 0.1 Gran # 8.26 H Lymph # (Auto) 1.5 [place] # (Auto) 0.6 Eos # (Auto) 0.2 Baso # (Auto) 0.01 Sodium 144 Potassium 3.4 L Chloride 98 Carbon Dioxide 30 Anion Gap 19 BUN 21 Creatinine 1.4 Est GFR ( Amer) > 60 Est GFR (Non-Af Amer) 52 POC Glucose (mg/dL) Random Glucose 113 H Lactic Acid 1.3 Calcium 8.8 Phosphorus Magnesium Total Bilirubin 4.3 H Direct Bilirubin AST 24 ALT 20 Alkaline Phosphatase 88 Troponin I 0.05 D Total Protein 8.0 Albumin 4.1 Globulin 3.9 Albumin/Globulin Ratio 1.0 L Prostate Specific Ag Free T4 Thyroxine (T4) TSH 3rd Generation Urine Color Urine Appearance Urine pH Ur Specific [place] Urine Protein Urine Glucose (UA) Urine Ketones Urine Blood Urine Nitrate Urine Bilirubin Urine Urobilinogen Ur Leukocyte Esterase Urine RBC Urine WBC Ur Epithelial Cells Urine Bacteria 02/25/18 02/25/18 02/25/18 00:56 05:20 05:20 WBC 10.1 RBC 4.88 Hgb 14.8 Hct 44.8 MCV 91.8 MCH 30.3 MCHC 33.0 RDW 14.8 H Plt Count 133 MPV 8.7 Gran % 84.9 H Lymph % (Auto) 9.9 L [place] % (Auto) 4.3 Eos % (Auto) 0.8 L Baso % (Auto) 0.1 Gran # 8.59 H Lymph # (Auto) 1.0 L [place] # (Auto) 0.4 Eos # (Auto) 0.1 Baso # (Auto) 0.01 Sodium 144 Potassium 3.8 Chloride 99 Carbon Dioxide 32 Anion Gap 17 BUN 21 Creatinine 1.4 Est GFR ( Amer) > 60 Est GFR (Non-Af Amer) 52 POC Glucose (mg/dL) 144 H Random Glucose 127 H Lactic Acid Calcium 8.9 Phosphorus 3.5 Magnesium 2.1 Total Bilirubin 3.2 H Direct Bilirubin 0.5 H AST 23 ALT 22 Alkaline Phosphatase 75 Troponin I Total Protein 7.6 Albumin 4.1 Globulin 3.5 Albumin/Globulin Ratio 1.2 Prostate Specific Ag Free T4 Thyroxine (T4) TSH 3rd Generation Urine Color Urine Appearance Urine pH Ur Specific [place] Urine Protein Urine Glucose (UA) Urine Ketones Urine Blood Urine Nitrate Urine Bilirubin Urine Urobilinogen Ur Leukocyte Esterase Urine RBC Urine WBC Ur Epithelial Cells Urine Bacteria 02/25/18 02/25/18 02/25/18 05:20 07:00 07:50 WBC RBC Hgb Hct MCV MCH MCHC RDW Plt Count MPV Gran % Lymph % (Auto) [place] % (Auto) Eos % (Auto) Baso % (Auto) Gran # Lymph # (Auto) [place] # (Auto) Eos # (Auto) Baso # (Auto) Sodium Potassium Chloride Carbon Dioxide Anion Gap BUN Creatinine Est GFR ( Amer) Est GFR (Non-Af Amer) POC Glucose (mg/dL) 101 Random Glucose Lactic Acid Calcium Phosphorus Magnesium Total Bilirubin Direct Bilirubin 0.9 H AST ALT Alkaline Phosphatase Troponin I Total Protein Albumin Globulin Albumin/Globulin Ratio Prostate Specific Ag Free T4 1.42 Thyroxine (T4) 6.0 TSH 3rd Generation 3.63 Urine Color Urine Appearance Urine pH Ur Specific [place] Urine Protein Urine Glucose (UA) Urine Ketones Urine Blood Urine Nitrate Urine Bilirubin Urine Urobilinogen Ur Leukocyte Esterase Urine RBC Urine WBC Ur Epithelial Cells Urine Bacteria EKG/Cardiology Studies: Cardiology / EKG Studies 02/24/18 17:55 ELECTROCARDIOGRAM Stat Comment: Reason For Exam: AFIB with tachycardia but not RVR Fingerstick Blood Sugar Results: 101 Critical Care Progress Note - Nutrition Nutrition: Nutrition Category Date Time Status Dysphagia/Modified Consistency Diet [DIET] Diets 02/23/18 Lunch Ordered Assessment/Plan - Assessment and Plan (Free Text) Assessment: 63 year old male under ICU care for vitals monitoring and ICU Psychosis 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 HTN Uncontrolled HTN ICU Psychosis Plan Neuro: - Given tPA - Repeat CT Head if any acute changes Cardio: - Hold rate control for now - Therapeutic Lovenox Respiratory: - Duonebs prn - Nasal cannula prn - Maintain O2 sat > 90% GI: - Protonix for ppx - Honey Puree Diet ID: - Zyvox as per primary for cellulitis of lower extermity - Maintain normothermia Nephro: - Hx of renal insufficiency - at baseline currently - Monitor with CMP - Replete electrolytes as needed Heme: - Restart Coumadin tomorrow, therapeutic Lovenox today Endo: - Maintain Euglycemia Dispo: At this time, patient is stable for transfer to [facility] <Mp Gonzalez - Last Filed: 02/25/18 13:20> CCU Objective - Vital Signs / Intake & Output Vital Signs (Last 4 hours): Vital Signs Pulse BP Pulse Ox 02/25/18 13:09 74 100 02/25/18 13:08 78 100 02/25/18 13:07 73 100 02/25/18 13:06 78 99 02/25/18 13:05 71 100 02/25/18 13:04 69 100 02/25/18 13:03 71 100 02/25/18 13:02 74 100 02/25/18 13:01 75 99 02/25/18 13:00 166/88 H 02/25/18 12:59 79 100 /19/18 12:58 82 99 18 12:57 72 100 18 12:56 73 100 18 12:55 75 100 06//18 12:54 68 100 //18 12:53 75 100 02/25/18 12:52 74 100 02/25/18 12:51 74 100 18 12:50 75 100 18 12:49 74 100 /18 12:48 71 100 18 12:47 76 100 18 12:46 76 100 18 12:45 76 100 18 12:44 78 100 18 12:43 73 100 18 12:42 72 100 18 12:41 76 100 18 12:40 78 100 18 12:39 73 100 18 12:38 86 99 18 12:37 74 99 18 12:36 70 100 18 12:35 71 100 18 12:34 73 100 18 12:33 75 100 18 12:32 74 100 18 12:31 71 100 18 12:30 83 100 18 12:29 79 100 18 12:28 74 99 18 12:27 71 100 18 12:26 71 99 18 12:25 74 100 18 12:24 74 99 18 12:23 71 99 18 12:22 70 99 18 12:21 67 99 18 12:20 81 99 18 09:20 73 143/81 Intake and Output (Last 8hrs): Intake & Output 18 //18 / 22:59 06:59 14:59 Intake Total 1220 180 120 Output Total 650 900 200 Balance 570 -720 -80 Weight 305 lb 3 oz Intake: IV 500 Right Upper arm 500 Oral 720 180 120 Output: Urine 650 900 200 Urethral ([place]) 900 200 Urine, Voided 650 Other: # Voids Urine, Voided 5 # Bowel Movements 4 0 - Medications Active Medications: Active Medications Generic Name Dose Route Start Last Admin Trade Name Freq PRN Reason Stop Dose Admin Acetaminophen 650 mg 02/23/18 19:46 02/23/18 20:00 Tylenol 325mg Tab PO 650 mg Q4H PRN Administration pain and fever Acetylcysteine 4 ml 02/24/18 11:45 02/25/18 07:02 Acetylcysteine 20% IH Not Given BIDRESP SACHIN Albuterol/Ipratropium 3 ml 02/24/18 14:00 02/25/18 07:03 Duoneb 3 Mg/0.5 Mg (3 Ml) Ud IH Not Given [id number] SACHIN Albuterol/Ipratropium 3 ml 02/24/18 11:33 Duoneb 3 Mg/0.5 Mg (3 Ml) Ud IH Q2H PRN Shortness of Breath Aspirin 81 mg 02/24/18 11:00 02/25/18 09:19 Aspirin Chewable PO 81 mg DAILY SACHIN Administration Atorvastatin Calcium 40 mg 02/24/18 17:00 02/24/18 18:45 Lipitor PO Not Given DIN SACHIN Bisacodyl 10 mg 02/25/18 07:00 Dulcolax RC Q48H SACHIN Cholecalciferol 2,000 intlu 02/24/18 12:00 02/25/18 09:23 Vitamin D PO 2,000 intlu DAILY SACHIN Administration Enoxaparin Sodium 120 mg 02/25/18 11:45 02/25/18 12:28 Lovenox SC 120 mg Q12H SACHIN Administration Protocol Furosemide 40 mg 02/24/18 22:00 02/25/18 09:20 Lasix IVP 40 mg Q12 SACHIN Administration Hydromorphone HCl 1 mg 02/25/18 00:37 02/25/18 11:30 Dilaudid IVP 1 mg Q4H PRN Administration Pain, moderate (4-7) Linezolid 600 mg in 300 mls @ 200 mls/hr 02/21/18 10:45 02/25/18 09:23 Zyvox 600mg/300ml D5w IVPB 02/28/18 10:46 200 mls/hr Q12 SACHIN Administration Protocol Meropenem 50 mls @ 100 mls/hr 02/21/18 10:45 02/25/18 09:21 Merrem Iv 1 Gm Premix IVPB 100 mls/hr Q12 SACHIN Administration Protocol Levothyroxine Sodium 25 mcg 02/24/18 12:00 02/25/18 09:23 Synthroid PO 25 mcg DAILY SACHIN Administration Lorazepam 1 mg 02/25/18 10:09 02/25/18 11:21 Ativan IVP 1 mg ONCE PRN Administration Agitation Protocol Losartan Potassium 100 mg 02/24/18 12:00 02/25/18 09:19 Cozaar PO 100 mg DAILY SACHIN Administration Metoprolol Tartrate 5 mg 02/24/18 21:45 02/25/18 09:20 Lopressor IVP 5 mg Q6H SACHIN Administration Pantoprazole Sodium 40 mg 02/26/18 07:30 Protonix Ec Tab PO ACB SACHIN Phenazopyridine HCl 100 mg 02/24/18 14:00 02/25/18 09:22 Pyridium PO 100 mg PC SACHIN Administration Polyethylene Glycol 17 gm 02/24/18 12:30 02/25/18 09:21 Miralax PO 17 gm BID SACHIN Administration Quetiapine Fumarate 50 mg 02/24/18 22:00 02/24/18 23:00 Seroquel PO 50 mg HS SACHIN Administration Protocol Sennosides 17.2 mg 02/24/18 22:00 02/24/18 22:55 Senokot Tab PO 17.2 mg HS SACHIN Administration Tamsulosin HCl 0.4 mg 02/24/18 12:00 02/25/18 09:20 Flomax PO 0.4 mg DAILY SACHIN Administration - Patient Studies Lab Studies: Microbiology Studies 02/24/18 00:08 Urine Culture - Final Urine,Clean Catch No Growth (<1,000 CFU/ML) 02/21/18 21:41 Blood Culture - Preliminary Blood-Venous NO GROWTH AFTER 3 DAYS 02/21/18 21:41 Blood Culture - Preliminary Blood-Venous NO GROWTH AFTER 3 DAYS Lab Studies 02/25/18 02/25/18 02/25/18 Range/Units 13:00 11:00 07:50 WBC (4.5-11.0) 10^3/ul RBC (3.5-6.1) 10^6/uL Hgb (14.0-18.0) g/dL Hct (42.0-52.0) % MCV (80.0-105.0) fl MCH (25.0-35.0) pg MCHC (31.0-37.0) g/dl RDW (11.5-14.5) % Plt Count (120.0-450.0) 10^3/uL MPV (7.0-11.0) fl Gran % (50.0-68.0) % Lymph % (Auto) (22.0-35.0) % Millard % (Auto) (1.0-6.0) % Eos % (Auto) (1.5-5.0) % Baso % (Auto) (0.0-3.0) % Gran # (1.4-6.5) Lymph # (Auto) (1.2-3.4) Millard # (Auto) (0.1-0.6) Eos # (Auto) (0.0-0.7) Baso # (Auto) (0.0-2.0) K/mm3 Sodium (132-148) mmol/L Potassium (3.6-5.0) mmol/L Chloride (98-107) mmol/L Carbon Dioxide (21-33) mmol/L Anion Gap (10-20) BUN (7-21) mg/dL Creatinine (0.8-1.5) mg/dl Est GFR ( Amer) Est GFR (Non-Af Amer) POC Glucose (mg/dL) 109 101 (65-110) mg/dL Random Glucose (70-110) mg/dL Hemoglobin A1c (4.2-6.5) % Lactic Acid (0.7-2.1) mmol/L Calcium (8.4-10.5) mg/dL Phosphorus (2.5-4.5) mg/dL Magnesium (1.7-2.2) mg/dL Total Bilirubin (0.2-1.3) mg/dL Direct Bilirubin (0.0-0.4) mg/dL AST (17-59) U/L ALT (7-56) U/L Alkaline Phosphatase (38-126) U/L Troponin I ng/mL Total Protein (5.8-8.3) g/dL Albumin (3.0-4.8) g/dL Globulin gm/dL Albumin/Globulin Ratio (1.1-1.8) Amylase 71 (35-125) U/L Lipase 56 (23-300) U/L 25-OH Vitamin D Total (30.0-100.0) NG/ML Free T4 (0.78-2.19) ng/dL Thyroxine (T4) (5.5-11.0) ug/dL TSH 3rd Generation (0.46-4.68) mIU/mL 02/25/18 02/25/18 02/25/18 Range/Units 07:00 05:20 05:20 WBC (4.5-11.0) 10^3/ul RBC (3.5-6.1) 10^6/uL Hgb (14.0-18.0) g/dL Hct (42.0-52.0) % MCV (80.0-105.0) fl MCH (25.0-35.0) pg MCHC (31.0-37.0) g/dl RDW (11.5-14.5) % Plt Count (120.0-450.0) 10^3/uL MPV (7.0-11.0) fl Gran % (50.0-68.0) % Lymph % (Auto) (22.0-35.0) % Millard % (Auto) (1.0-6.0) % Eos % (Auto) (1.5-5.0) % Baso % (Auto) (0.0-3.0) % Gran # (1.4-6.5) Lymph # (Auto) (1.2-3.4) Millard # (Auto) (0.1-0.6) Eos # (Auto) (0.0-0.7) Baso # (Auto) (0.0-2.0) K/mm3 Sodium (132-148) mmol/L Potassium (3.6-5.0) mmol/L Chloride (98-107) mmol/L Carbon Dioxide (21-33) mmol/L Anion Gap (10-20) BUN (7-21) mg/dL Creatinine (0.8-1.5) mg/dl Est GFR ( Amer) Est GFR (Non-Af Amer) POC Glucose (mg/dL) (65-110) mg/dL Random Glucose (70-110) mg/dL Hemoglobin A1c (4.2-6.5) % Lactic Acid (0.7-2.1) mmol/L Calcium (8.4-10.5) mg/dL Phosphorus (2.5-4.5) mg/dL Magnesium (1.7-2.2) mg/dL Total Bilirubin (0.2-1.3) mg/dL Direct Bilirubin 0.9 H (0.0-0.4) mg/dL AST (17-59) U/L ALT (7-56) U/L Alkaline Phosphatase (38-126) U/L Troponin I ng/mL Total Protein (5.8-8.3) g/dL Albumin (3.0-4.8) g/dL Globulin gm/dL Albumin/Globulin Ratio (1.1-1.8) Amylase (35-125) U/L Lipase (23-300) U/L 25-OH Vitamin D Total 35.5 (30.0-100.0) NG/ML Free T4 1.42 (0.78-2.19) ng/dL Thyroxine (T4) 6.0 (5.5-11.0) ug/dL TSH 3rd Generation 3.63 (0.46-4.68) mIU/mL 02/25/18 02/25/18 02/25/18 Range/Units 05:20 05:20 05:20 WBC 10.1 (4.5-11.0) 10^3/ul RBC 4.88 (3.5-6.1) 10^6/uL Hgb 14.8 (14.0-18.0) g/dL Hct 44.8 (42.0-52.0) % MCV 91.8 (80.0-105.0) fl MCH 30.3 (25.0-35.0) pg MCHC 33.0 (31.0-37.0) g/dl RDW 14.8 H (11.5-14.5) % Plt Count 133 (120.0-450.0) 10^3/uL MPV 8.7 (7.0-11.0) fl Gran % 84.9 H (50.0-68.0) % Lymph % (Auto) 9.9 L (22.0-35.0) % Millard % (Auto) 4.3 (1.0-6.0) % Eos % (Auto) 0.8 L (1.5-5.0) % Baso % (Auto) 0.1 (0.0-3.0) % Gran # 8.59 H (1.4-6.5) Lymph # (Auto) 1.0 L (1.2-3.4) Millard # (Auto) 0.4 (0.1-0.6) Eos # (Auto) 0.1 (0.0-0.7) Baso # (Auto) 0.01 (0.0-2.0) K/mm3 Sodium 144 (132-148) mmol/L Potassium 3.8 (3.6-5.0) mmol/L Chloride 99 (98-107) mmol/L Carbon Dioxide 32 (21-33) mmol/L Anion Gap 17 (10-20) BUN 21 (7-21) mg/dL Creatinine 1.4 (0.8-1.5) mg/dl Est GFR ( Amer) > 60 Est GFR (Non-Af Amer) 52 POC Glucose (mg/dL) (65-110) mg/dL Random Glucose 127 H (70-110) mg/dL Hemoglobin A1c 5.5 (4.2-6.5) % Lactic Acid (0.7-2.1) mmol/L Calcium 8.9 (8.4-10.5) mg/dL Phosphorus 3.5 (2.5-4.5) mg/dL Magnesium 2.1 (1.7-2.2) mg/dL Total Bilirubin 3.2 H (0.2-1.3) mg/dL Direct Bilirubin 0.5 H (0.0-0.4) mg/dL AST 23 (17-59) U/L ALT 22 (7-56) U/L Alkaline Phosphatase 75 (38-126) U/L Troponin I ng/mL Total Protein 7.6 (5.8-8.3) g/dL Albumin 4.1 (3.0-4.8) g/dL Globulin 3.5 gm/dL Albumin/Globulin Ratio 1.2 (1.1-1.8) Amylase (35-125) U/L Lipase (23-300) U/L 25-OH Vitamin D Total (30.0-100.0) NG/ML Free T4 (0.78-2.19) ng/dL Thyroxine (T4) (5.5-11.0) ug/dL TSH 3rd Generation (0.46-4.68) mIU/mL 02/25/18 02/24/18 02/24/18 Range/Units 00:56 18:27 18:27 WBC (4.5-11.0) 10^3/ul RBC (3.5-6.1) 10^6/uL Hgb (14.0-18.0) g/dL Hct (42.0-52.0) % MCV (80.0-105.0) fl MCH (25.0-35.0) pg MCHC (31.0-37.0) g/dl RDW (11.5-14.5) % Plt Count (120.0-450.0) 10^3/uL MPV (7.0-11.0) fl Gran % (50.0-68.0) % Lymph % (Auto) (22.0-35.0) % Millard % (Auto) (1.0-6.0) % Eos % (Auto) (1.5-5.0) % Baso % (Auto) (0.0-3.0) % Gran # (1.4-6.5) Lymph # (Auto) (1.2-3.4) Millard # (Auto) (0.1-0.6) Eos # (Auto) (0.0-0.7) Baso # (Auto) (0.0-2.0) K/mm3 Sodium 144 (132-148) mmol/L Potassium 3.4 L (3.6-5.0) mmol/L Chloride 98 (98-107) mmol/L Carbon Dioxide 30 (21-33) mmol/L Anion Gap 19 (10-20) BUN 21 (7-21) mg/dL Creatinine 1.4 (0.8-1.5) mg/dl Est GFR ( Amer) > 60 Est GFR (Non-Af Amer) 52 POC Glucose (mg/dL) 144 H (65-110) mg/dL Random Glucose 113 H (70-110) mg/dL Hemoglobin A1c (4.2-6.5) % Lactic Acid 1.3 (0.7-2.1) mmol/L Calcium 8.8 (8.4-10.5) mg/dL Phosphorus (2.5-4.5) mg/dL Magnesium (1.7-2.2) mg/dL Total Bilirubin 4.3 H (0.2-1.3) mg/dL Direct Bilirubin (0.0-0.4) mg/dL AST 24 (17-59) U/L ALT 20 (7-56) U/L Alkaline Phosphatase 88 (38-126) U/L Troponin I 0.05 D ng/mL Total Protein 8.0 (5.8-8.3) g/dL Albumin 4.1 (3.0-4.8) g/dL Globulin 3.9 gm/dL Albumin/Globulin Ratio 1.0 L (1.1-1.8) Amylase (35-125) U/L Lipase (23-300) U/L 25-OH Vitamin D Total (30.0-100.0) NG/ML Free T4 (0.78-2.19) ng/dL Thyroxine (T4) (5.5-11.0) ug/dL TSH 3rd Generation (0.46-4.68) mIU/mL 02/24/18 Range/Units 18:27 WBC 10.5 D (4.5-11.0) 10^3/ul RBC 4.99 (3.5-6.1) 10^6/uL Hgb 15.2 D (14.0-18.0) g/dL Hct 45.1 (42.0-52.0) % MCV 90.4 (80.0-105.0) fl MCH 30.5 (25.0-35.0) pg MCHC 33.7 (31.0-37.0) g/dl RDW 14.6 H (11.5-14.5) % Plt Count 143 (120.0-450.0) 10^3/uL MPV 9.2 (7.0-11.0) fl Gran % 78.8 H (50.0-68.0) % Lymph % (Auto) 13.9 L (22.0-35.0) % Millard % (Auto) 5.5 (1.0-6.0) % Eos % (Auto) 1.7 (1.5-5.0) % Baso % (Auto) 0.1 (0.0-3.0) % Gran # 8.26 H (1.4-6.5) Lymph # (Auto) 1.5 (1.2-3.4) Millard # (Auto) 0.6 (0.1-0.6) Eos # (Auto) 0.2 (0.0-0.7) Baso # (Auto) 0.01 (0.0-2.0) K/mm3 Sodium (132-148) mmol/L Potassium (3.6-5.0) mmol/L Chloride (98-107) mmol/L Carbon Dioxide (21-33) mmol/L Anion Gap (10-20) BUN (7-21) mg/dL Creatinine (0.8-1.5) mg/dl Est GFR ( Amer) Est GFR (Non-Af Amer) POC Glucose (mg/dL) (65-110) mg/dL Random Glucose (70-110) mg/dL Hemoglobin A1c (4.2-6.5) % Lactic Acid (0.7-2.1) mmol/L Calcium (8.4-10.5) mg/dL Phosphorus (2.5-4.5) mg/dL Magnesium (1.7-2.2) mg/dL Total Bilirubin (0.2-1.3) mg/dL Direct Bilirubin (0.0-0.4) mg/dL AST (17-59) U/L ALT (7-56) U/L Alkaline Phosphatase (38-126) U/L Troponin I ng/mL Total Protein (5.8-8.3) g/dL Albumin (3.0-4.8) g/dL Globulin gm/dL Albumin/Globulin Ratio (1.1-1.8) Amylase (35-125) U/L Lipase (23-300) U/L 25-OH Vitamin D Total (30.0-100.0) NG/ML Free T4 (0.78-2.19) ng/dL Thyroxine (T4) (5.5-11.0) ug/dL TSH 3rd Generation (0.46-4.68) mIU/mL Laboratory Results - last 24 hr 02/24/18 02/24/18 02/24/18 18:27 18:27 18:27 WBC 10.5 D RBC 4.99 Hgb 15.2 D Hct 45.1 MCV 90.4 MCH 30.5 MCHC 33.7 RDW 14.6 H Plt Count 143 MPV 9.2 Gran % 78.8 H Lymph % (Auto) 13.9 L Millard % (Auto) 5.5 Eos % (Auto) 1.7 Baso % (Auto) 0.1 Gran # 8.26 H Lymph # (Auto) 1.5 Millard # (Auto) 0.6 Eos # (Auto) 0.2 Baso # (Auto) 0.01 Sodium 144 Potassium 3.4 L Chloride 98 Carbon Dioxide 30 Anion Gap 19 BUN 21 Creatinine 1.4 Est GFR ( Amer) > 60 Est GFR (Non-Af Amer) 52 POC Glucose (mg/dL) Random Glucose 113 H Hemoglobin A1c Lactic Acid 1.3 Calcium 8.8 Phosphorus Magnesium Total Bilirubin 4.3 H Direct Bilirubin AST 24 ALT 20 Alkaline Phosphatase 88 Troponin I 0.05 D Total Protein 8.0 Albumin 4.1 Globulin 3.9 Albumin/Globulin Ratio 1.0 L Amylase Lipase 25-OH Vitamin D Total Free T4 Thyroxine (T4) TSH 3rd Generation 02/25/18 02/25/18 02/25/18 00:56 05:20 05:20 WBC 10.1 RBC 4.88 Hgb 14.8 Hct 44.8 MCV 91.8 MCH 30.3 MCHC 33.0 RDW 14.8 H Plt Count 133 MPV 8.7 Gran % 84.9 H Lymph % (Auto) 9.9 L Millard % (Auto) 4.3 Eos % (Auto) 0.8 L Baso % (Auto) 0.1 Gran # 8.59 H Lymph # (Auto) 1.0 L Millard # (Auto) 0.4 Eos # (Auto) 0.1 Baso # (Auto) 0.01 Sodium 144 Potassium 3.8 Chloride 99 Carbon Dioxide 32 Anion Gap 17 BUN 21 Creatinine 1.4 Est GFR ( Amer) > 60 Est GFR (Non-Af Amer) 52 POC Glucose (mg/dL) 144 H Random Glucose 127 H Hemoglobin A1c Lactic Acid Calcium 8.9 Phosphorus 3.5 Magnesium 2.1 Total Bilirubin 3.2 H Direct Bilirubin 0.5 H AST 23 ALT 22 Alkaline Phosphatase 75 Troponin I Total Protein 7.6 Albumin 4.1 Globulin 3.5 Albumin/Globulin Ratio 1.2 Amylase Lipase 25-OH Vitamin D Total Free T4 Thyroxine (T4) TSH 3rd Generation 02/25/18 02/25/18 02/25/18 05:20 05:20 05:20 WBC RBC Hgb Hct MCV MCH MCHC RDW Plt Count MPV Gran % Lymph % (Auto) Millard % (Auto) Eos % (Auto) Baso % (Auto) Gran # Lymph # (Auto) Millard # (Auto) Eos # (Auto) Baso # (Auto) Sodium Potassium Chloride Carbon Dioxide Anion Gap BUN Creatinine Est GFR ( Amer) Est GFR (Non-Af Amer) POC Glucose (mg/dL) Random Glucose Hemoglobin A1c 5.5 Lactic Acid Calcium Phosphorus Magnesium Total Bilirubin Direct Bilirubin AST ALT Alkaline Phosphatase Troponin I Total Protein Albumin Globulin Albumin/Globulin Ratio Amylase Lipase 25-OH Vitamin D Total 35.5 Free T4 1.42 Thyroxine (T4) 6.0 TSH 3rd Generation 3.63 02/25/18 02/25/18 02/25/18 07:00 07:50 11:00 WBC RBC Hgb Hct MCV MCH MCHC RDW Plt Count MPV Gran % Lymph % (Auto) Millard % (Auto) Eos % (Auto) Baso % (Auto) Gran # Lymph # (Auto) Millard # (Auto) Eos # (Auto) Baso # (Auto) Sodium Potassium Chloride Carbon Dioxide Anion Gap BUN Creatinine Est GFR ( Amer) Est GFR (Non-Af Amer) POC Glucose (mg/dL) 101 Random Glucose Hemoglobin A1c Lactic Acid Calcium Phosphorus Magnesium Total Bilirubin Direct Bilirubin 0.9 H AST ALT Alkaline Phosphatase Troponin I Total Protein Albumin Globulin Albumin/Globulin Ratio Amylase 71 Lipase 56 25-OH Vitamin D Total Free T4 Thyroxine (T4) TSH 3rd Generation 02/25/18 13:00 WBC RBC Hgb Hct MCV MCH MCHC RDW Plt Count MPV Gran % Lymph % (Auto) Millard % (Auto) Eos % (Auto) Baso % (Auto) Gran # Lymph # (Auto) Millard # (Auto) Eos # (Auto) Baso # (Auto) Sodium Potassium Chloride Carbon Dioxide Anion Gap BUN Creatinine Est GFR ( Amer) Est GFR (Non-Af Amer) POC Glucose (mg/dL) 109 Random Glucose Hemoglobin A1c Lactic Acid Calcium Phosphorus Magnesium Total Bilirubin Direct Bilirubin AST ALT Alkaline Phosphatase Troponin I Total Protein Albumin Globulin Albumin/Globulin Ratio Amylase Lipase 25-OH Vitamin D Total Free T4 Thyroxine (T4) TSH 3rd Generation EKG/Cardiology Studies: Cardiology / EKG Studies 02/24/18 17:55 ELECTROCARDIOGRAM Stat Comment: Reason For Exam: AFIB with tachycardia but not RVR Critical Care Progress Note - Nutrition Nutrition: Nutrition Category Date Time Status Dysphagia/Modified Consistency Diet [DIET] Diets 02/23/18 Lunch Ordered Attending/Attestation - Attestation I have personally seen and examined this patient.: Yes I have fully participated in the care of the patient.: Yes I have reviewed all pertinent clinical information: Yes Notes (Text): 02/25/18 13:[address] gonzalez's note
[2018-02-25] MEDS: HYDROmorphone 0.5 mg/0.5 ml ISec IVP PRN (11:30)
[2018-02-25 11:32] LABS: AMYLASE 71 U/L (35-125); LIPASE 56 U/L (23-300)
[2018-02-25] MEDS: Enoxaparin 120 mg Syringe SC SCH ×2 (12:28→22:50)
--- NOTE | 2018-02-25 13:24 | MRI ---
PROCEDURE: MRI BRAIN WITHOUT CONTRAST HISTORY: R/O infarct COMPARISON: None. TECHNIQUE: Multiplanar, multisequence MR images of the brain were obtained without intravenous contrast enhancement. FINDINGS: HEMORRHAGE: None DWI: Acute cortical infarcts are seen in the left posterior frontal lobe along the precentral gyrus and more anteriorly in the speech area. This correlates with the history of right-sided weakness and aphasia. BRAIN PARENCHYMA: Severe chronic microvascular changes are seen in the periventricular white matter and the harshad. VENTRICLES: Unremarkable. No hydrocephalus. CRANIUM: Unremarkable. ORBITS: Grossly unremarkable. PARANASAL SINUSES/MASTOIDS: Clear VASCULAR SYSTEM: Skull base flow voids intact. OTHER FINDINGS: The findings were discussed with Shobha Daniel at 1:10 p.m. IMPRESSION: Acute cortical infarcts are seen in the left posterior frontal lobe along the precentral gyrus and more anteriorly in the speech area. This correlates with the history of right-sided weakness and aphasia
--- NOTE | 2018-02-25 13:55 | CON ---
DATE: 02/25/2018 REQUESTING PHYSICIAN: Dr. Brown. REASON FOR CONSULT: I have been asked to see this 63-year-old male with multiple comorbidities including hypertension, atrial fibrillation, chronic kidney disease, congestive heart failure, morbid obesity, asthma, chronic lymphedema of his legs who was admitted to the hospital five days ago with an acute left CVA. The patient was brought to the hospital with new-onset right-sided weakness and aphasia. The patient came to the Emergency Room where Code Stroke was initiated. He was given intravenous thrombolytics. I have been asked to see this patient for abdominal distention. CT scan of the abdomen as well as an ultrasound revealed gallstone. The patient underwent a swallowing study and was able to tolerate liquefied diet. The patient remains aphasic. He is unable to give any detailed history. PAST MEDICAL HISTORY: As above. Again, he has a history of atrial fibrillation, hypertension, chronic kidney disease, chronic lymphedema, atrial fibrillation, congestive heart failure, morbid obesity and asthma. PAST SURGICAL HISTORY: Notable for a laparoscopic band and left shoulder surgery. SOCIAL HISTORY: He is a former alcohol and substance abuser. He denies cigarette smoking. FAMILY HISTORY: Noncontributory. REVIEW OF SYSTEMS: The 14-point review of systems is unobtainable as the patient is aphasic. PHYSICAL EXAMINATION: GENERAL: Morbidly obese male lying in bed in no acute distress. VITAL SIGNS: Reveal temperature of 98, blood pressure 143/81, heart rate of 73. HEENT: Reveal sclerae to be white. Conjunctivae pink. NECK: Supple. CHEST: Reveal lungs to be clear. Heart: Exam reveals an irregularly irregular rate. ABDOMEN: Obese, soft, nontender. EXTREMITIES: Show 2+ pedal edema with his lower extremities wrapped in a dressing. LABORATORY DATA: Reveal white blood cell count 10.1, hemoglobin 14.8. Chemistries reveal blood sugar 127, total bilirubin 3.2, direct bilirubin 0.5. AST, ALT, alkaline phosphatase were all normal. IMPRESSION: A 63-year-old male status post of left cerebrovascular accident with right-sided weakness and aphasia with CT scan of the abdomen and pelvis and ultrasound showing a gallstone. There is no evidence of cholecystitis. There is the presence of a laparoscopic band on CT scan, which appears to be in the appropriate location. The patient does have a hyperbilirubinemia, which is for predominantly indirect bilirubin. I suspect that this is secondary to Gilbert's syndrome and not related to the gallstone. There are no acute findings found on CAT scan or abdominal ultrasound. His abdomen is soft and obese. I did not elicit any tenderness on physical exam. RECOMMENDATIONS: Continue current treatment. No further GI workup planned at this time. Griffin Somers MD
--- NOTE | 2018-02-25 14:04 | PN ---
DATE: 02/25/2018 SUBJECTIVE: The patient is seen and examined at the bedside. He is much more comfortable than yesterday. Overnight, he had an episode of some abdominal pain which appears to be related to cystitis identified on CT of the abdomen and pelvis. Since then, pain gone. The patient was started on Dilaudid p.r.n.; however, he required it only twice during the last night. His heart rate and blood pressure stabilized. He is comfortable, following commands communicating (the patient has aphasia and dysarthria due to his recent stroke). OBJECTIVE: VITAL SIGNS: Heart rate 83, blood pressure 143/66, oxygen saturation 97% on room air, temperature 98.1. ENT: Head and neck atraumatic. LUNGS: Clear to auscultation bilaterally. HEART: Regular rate and rhythm. S1, S2 normal. ABDOMEN: Soft, nontender, nondistended. MUSCULOSKELETAL: No C/C/E. NEUROLOGICAL: The motor strength in the right upper and lower extremities are substantially improved and now 4/5 with the left one 5/5. Dysarthria is still present. SKIN: Moist. PSYCHIATRIC: The patient is comfortable. Alert, awake and oriented x3. LABORATORY DATA: WBC 10.1, hemoglobin 14.8, platelet count 133, sodium 144, potassium 3.8, chloride 99, carbon dioxide 32, BUN 21, creatinine 1.4 and stable, glucose 101, lactic acid 1.3, AST 23, ALT 22, total bilirubin 3.2 with direct bilirubin 0.9. MEDICATIONS: Tylenol p.r.n., Mucomyst, DuoNeb p.r.n. and every 6 hours on standing basis, aspirin, Lipitor, Dulcolax, vitamin D, Lasix 40 mg IV every 12 hours, heparin subcutaneous, Synthroid, Cozaar, meropenem, Lopressor, Protonix, Pyridium, Seroquel, Flomax, Zyvox. ASSESSMENT AND PLAN: This is a 63-year-old gentleman who is recovering after having cerebrovascular accident treated with tissue plasminogen activator. At present time, the patient's pain is gone and it is going to be attributed to cystitis. The patient is on antibiotics. He is afebrile and does not have leukocytosis. Sevilla catheter was placed and it appears that relief came after he about 900 mL of urine after that. The patient's creatinine was plateaued at 1.4. The patient is on statins and aspirin. His blood pressure is controlled. We will continue to target euvolemia, euglycemia, normothermia and oxygen saturation more than 90%. Okay to downgrade to Telemetry. Mp Valadez MD
--- NOTE | 2018-02-25 14:44 | PN ---
DATE: 02/25/2018 CARDIOLOGY FOLLOWUP SUBJECTIVE: The patient is in bed, sitting up without shortness of breath. PHYSICAL EXAMINATION: VITAL SIGNS: Blood pressure is 166 systolic, heart rates in the 70s. NECK: Negative JVD. LUNGS: Without rales. HEART: Reveals S1, S2. EXTREMITIES: Without edema. LABORATORY DATA: Hemoglobin is 14.3. Chemistries: Creatinine is 1.4. IMPRESSION: 1. Status post cerebrovascular accident. 2. Status post tissue plasminogen activator. 3. Chronic atrial fibrillation. 4. Hypertension. 5. Obesity. PLAN: Given these findings, once cleared by Neuro, the patient should be anticoagulated for his atrial fibrillation given his high risk of thromboembolism. In addition, we will change his metoprolol to p.o. metoprolol for better blood pressure control. Oscar Andres MD
--- NOTE | 2018-02-25 15:34 | CP.PCM.PN ---
<Yuliya Eduardojeansyeda - Last Filed: 02/25/18 15:30> Subjective - Date & Time of Evaluation Date of Evaluation: 02/25/18 Time of Evaluation: 15:30 - Subjective Subjective: Podiatry consult note: Dr. Sebastian/Dr. Byers 63 year old male was seen and evaluated at bedside for b/l venous stasis leg ulcerations. Patient is AAOx3. Appears to be resting comfortably in his bed. Denies of any new complains at this time. Leg dressing appears clean, dry and intact. Objective - Vital Signs/Intake and Output Vital Signs (last 24 hours): Temp Pulse Resp BP Pulse Ox 98 F 54 L 20 166/88 H 100 02/25/18 08:00 02/25/18 15:14 02/25/18 08:00 02/25/18 13:00 02/25/18 15:14 Intake and Output: 02/25/18 02/25/18 06:59 18:59 Intake Total 180 120 Output Total 900 200 Balance -720 -80 - Medications Medications: Current Medications Acetaminophen (Tylenol 325mg Tab) 650 mg PO Q4H PRN PRN Reason: pain and fever Last Admin: 02/23/18 20:00 Dose: 650 mg Acetylcysteine (Acetylcysteine 20%) 4 ml IH BIDRESP [facility] Last Admin: 02/25/18 07:02 Dose: Not Given Albuterol/Ipratropium (Duoneb 3 Mg/0.5 Mg (3 Ml) Ud) 3 ml IH [id number] [facility] Last Admin: 02/25/18 07:03 Dose: Not Given Albuterol/Ipratropium (Duoneb 3 Mg/0.5 Mg (3 Ml) Ud) 3 ml IH Q2H PRN PRN Reason: Shortness of Breath Aspirin (Aspirin Chewable) 81 mg PO DAILY [facility] Last Admin: 02/25/18 09:19 Dose: 81 mg Atorvastatin Calcium (Lipitor) 40 mg PO DIN [facility] Last Admin: 02/24/18 18:45 Dose: Not Given Bisacodyl (Dulcolax) 10 mg RC Q48H [facility] Cholecalciferol (Vitamin D) 2,000 intlu PO DAILY [facility] Last Admin: 02/25/18 09:23 Dose: 2,000 intlu Enoxaparin Sodium (Lovenox) 120 mg SC Q12H [facility] PRN Reason: Protocol Last Admin: 02/25/18 12:28 Dose: 120 mg Furosemide (Lasix) 40 mg IVP Q12 [facility] Last Admin: 02/25/18 09:20 Dose: 40 mg Hydromorphone HCl (Dilaudid) 1 mg IVP Q4H PRN PRN Reason: Pain, moderate (4-7) Last Admin: 02/25/18 11:30 Dose: 1 mg Linezolid (Zyvox 600mg/300ml D5w) 600 mg in 300 mls @ 200 mls/hr IVPB Q12 [facility] PRN Reason: Protocol Stop: 02/28/18 10:46 Last Admin: 02/25/18 09:23 Dose: 200 mls/hr Meropenem (Merrem Iv 1 Gm Premix) 50 mls @ 100 mls/hr IVPB Q12 [facility] PRN Reason: Protocol Last Admin: 02/25/18 09:21 Dose: 100 mls/hr Levothyroxine Sodium (Synthroid) 25 mcg PO DAILY [facility] Last Admin: 02/25/18 09:23 Dose: 25 mcg Losartan Potassium (Cozaar) 100 mg PO DAILY [facility] Last Admin: 02/25/18 09:19 Dose: 100 mg Metoprolol Tartrate (Lopressor) 50 mg PO BID [facility] Pantoprazole Sodium (Protonix Ec Tab) 40 mg PO ACB [facility] Phenazopyridine HCl (Pyridium) 100 mg PO PC [facility] Last Admin: 02/25/18 13:47 Dose: 100 mg Polyethylene Glycol (Miralax) 17 gm PO BID [facility] Last Admin: 02/25/18 09:21 Dose: 17 gm Quetiapine Fumarate (Seroquel) 50 mg PO HS [facility] PRN Reason: Protocol Last Admin: 02/24/18 23:00 Dose: 50 mg Sennosides (Senokot Tab) 17.2 mg PO HS [facility] Last Admin: 02/24/18 22:55 Dose: 17.2 mg Tamsulosin HCl (Flomax) 0.4 mg PO DAILY [facility] Last Admin: 02/25/18 09:20 Dose: 0.4 mg - Labs Labs: 02/25/18 05:20 02/25/18 05:20 PT 17.3 SECONDS (9.4-12.5) H 02/20/18 17:49 INR 1.50 (0.93-1.08) H 02/20/18 17:49 APTT 31.6 Seconds (25.1-36.5) 02/20/18 17:49 - Constitutional Appears: Well, Non-toxic, No Acute Distress - Extremities Exam Additional comments: B/l LE focused exam Vasc: DP/PT pulses non-palpable secondary to b/l lymphedema. CFT > 3 seconds to all digits. Skin temperature warm to warm from proximal to distal. Severe b/l lymphedema noted b/l Neuro: Unable to assess due to mental status Derm: RLE - Approx 6 cm x 5 cm superficial venous stasis ulceration noted to lateral right leg. No erythema, no malodor, no other clinical signs of infection. Moderate serous drainage noted to site. Base is fibrogranular. LLE- One 0.5 cm x 0.5 cm x 0.1 venous stasis ulceration noted to anterior leg and one noted to posterior leg. No erythema, no malodor, no other clinical signs of infection. Moderate serous drainage noted to site. Base is fibrogranular. MSK: Unable to assess pain on palpation, MMT or ROM. No other gross deformities noted - Neurological Exam Neurological Exam: Alert, Awake, Oriented x3 - Psychiatric Exam Psychiatric exam: Normal Affect, Normal Mood Assessment and Plan - Assessment and Plan (Free Text) Assessment: 63 year old male evaluated for b/l venous stasis ulcerations R worse than L Plan: Patient seen and evaluated with attending Dr. Byers Absent leukocytosis wound cx - Pseudomonas, MRSA Continue abx per ID Wounds cleansed with saline and dressed with DSD, ABD right side, optifoam left side No plan for surgical intervention at this time Podiatry will continue to follow while patient in house <Mynor Byers - Last Filed: 02/26/18 07:35> Objective - Vital Signs/Intake and Output Vital Signs (last 24 hours): Temp Pulse Resp BP Pulse Ox 98.7 F 76 20 107/69 97 02/26/18 06:00 02/26/18 06:00 02/26/18 06:00 02/26/18 06:00 02/26/18 06:00 Intake and Output: 02/26/18 02/26/18 06:59 18:59 Intake Total 300 Output Total 1600 Balance -1300 - Medications Medications: Current Medications Acetaminophen (Tylenol 325mg Tab) 650 mg PO Q4H PRN PRN Reason: pain and fever Last Admin: 02/23/18 20:00 Dose: 650 mg Acetylcysteine (Acetylcysteine 20%) 4 ml IH BIDRESP [facility] Last Admin: 02/26/18 07:25 Dose: 4 ml Albuterol/Ipratropium (Duoneb 3 Mg/0.5 Mg (3 Ml) Ud) 3 ml IH [id number] [facility] Last Admin: 02/26/18 07:25 Dose: 3 ml Albuterol/Ipratropium (Duoneb 3 Mg/0.5 Mg (3 Ml) Ud) 3 ml IH Q2H PRN PRN Reason: Shortness of Breath Aspirin (Aspirin Chewable) 81 mg PO DAILY [facility] Last Admin: 02/25/18 09:19 Dose: 81 mg Atorvastatin Calcium (Lipitor) 40 mg PO DIN [facility] Last Admin: 02/25/18 17:08 Dose: 40 mg Bisacodyl (Dulcolax) 10 mg RC Q48H [facility] Last Admin: 02/25/18 09:00 Dose: 10 mg Cholecalciferol (Vitamin D) 2,000 intlu PO DAILY [facility] Last Admin: 02/25/18 09:23 Dose: 2,000 intlu Enoxaparin Sodium (Lovenox) 120 mg SC Q12H [facility] PRN Reason: Protocol Last Admin: 02/25/18 22:50 Dose: 120 mg Furosemide (Lasix) 40 mg IVP Q12 [facility] Last Admin: 02/25/18 21:45 Dose: 40 mg Hydralazine HCl (Apresoline) 10 mg IVP Q6 PRN PRN Reason: Systolic Blood Pressure Hydromorphone HCl (Dilaudid) 1 mg IVP Q4H PRN PRN Reason: Pain, moderate (4-7) Last Admin: 02/26/18 01:38 Dose: 1 mg Linezolid (Zyvox 600mg/300ml D5w) 600 mg in 300 mls @ 200 mls/hr IVPB Q12 [facility] PRN Reason: Protocol Stop: 02/28/18 10:46 Last Admin: 02/25/18 22:49 Dose: 200 mls/hr Meropenem (Merrem Iv 1 Gm Premix) 50 mls @ 100 mls/hr IVPB Q12 [facility] PRN Reason: Protocol Last Admin: 02/25/18 21:44 Dose: 100 mls/hr Levothyroxine Sodium (Synthroid) 25 mcg PO DAILY [facility] Last Admin: 02/25/18 09:23 Dose: 25 mcg Losartan Potassium (Cozaar) 100 mg PO DAILY [facility] Last Admin: 02/25/18 09:19 Dose: 100 mg Metoprolol Tartrate (Lopressor) 50 mg PO BID [facility] Last Admin: 02/25/18 17:07 Dose: 50 mg Pantoprazole Sodium (Protonix Ec Tab) 40 mg PO ACB [facility] Phenazopyridine HCl (Pyridium) 100 mg PO PC [facility] Last Admin: 02/25/18 17:08 Dose: 100 mg Polyethylene Glycol (Miralax) 17 gm PO BID [facility] Last Admin: 02/25/18 17:07 Dose: 17 gm Quetiapine Fumarate (Seroquel) 50 mg PO HS [facility] PRN Reason: Protocol Last Admin: 02/25/18 21:45 Dose: 50 mg Sennosides (Senokot Tab) 17.2 mg PO HS [facility] Last Admin: 02/25/18 21:49 Dose: 17.2 mg Tamsulosin HCl (Flomax) 0.4 mg PO DAILY [facility] Last Admin: 02/25/18 09:20 Dose: 0.4 mg - Labs Labs: 02/26/18 05:30 02/26/18 05:30 PT 16.5 SECONDS (9.4-12.5) H 02/26/18 05:30 INR 1.42 (0.93-1.08) H 02/26/18 05:30 APTT 38.4 Seconds (25.1-36.5) H 02/26/18 05:30 Attending/Attestation - Attestation I have personally seen and examined this patient.: Yes I have fully participated in the care of the patient.: Yes I have reviewed all pertinent clinical information, including history, physical exam and plan: Yes
--- NOTE | 2018-02-25 17:44 | US ---
HISTORY: Leg pain and swelling. Evaluate for DVT PHYSICIAN(S): Oscar Berkowitz MD. TECHNIQUE: Duplex sonography and color-flow Doppler with graded compression were used to evaluate the deep venous systems of both lower extremities. The exam is extremely limited by body habitus and edema. The lower femoral veins and tibial veins are not well seen FINDINGS: The visualized deep venous systems of both lower extremities are sonographically normal and compressible. Normal wave forms and augmentation are seen. There is no sonographic evidence for deep venous thrombosis in the visualized segments of both lower extremities. IMPRESSION: No sonographic evidence for deep venous thrombosis in the visualized segments of both lower extremities. Very limited study.
--- NOTE | 2018-02-25 21:35 | PN ---
DATE: 02/25/2018 SUBJECTIVE: Patient is seen earlier today in 129, bed 7. Patient's condition is poor and he has had low-grade fevers and no abdominal pain or diarrhea. PHYSICAL EXAMINATION: VITAL SIGNS: Temperature is 98, blood pressure is 160/80, respiratory rate of 20, and heart rate of 54. HEENT: Unremarkable. NECK: Supple. LUNGS: Decreased breath sounds. HEART: Normal S1, S2. ABDOMEN: Soft, nontender. LABORATORY DATA: Reveals a white count is 10,000, hemoglobin is 14. BUN of 21, creatinine of 1.4. Urinalysis is noted and microbiology is reviewed. Review of orders reveals the patient is on linezolid and meropenem. ASSESSMENT AND PLAN: He is a 63-year-old male, seen earlier today in 129, bed 7, with a right leg infected venous stasis ulcer with methicillin-resistant Staphylococcus aureus and pseudomonas, acute cerebrovascular accident, right-sided weakness, status post tPA infusion, history of left lower extremity skin and some soft tissue infection with Klebsiella and methicillin-resistant Staphylococcus aureus in a patient with chronic venous stasis ulcers. No evidence of abscess or an osteomyelitis on MRI; on day #5 of Zyvox and meropenem, continue 7 to 10 days. Review of his progress note by Dr. Eduardo is noted. Patient also had a CAT scan of the abdomen and pelvis on yesterday which revealed mild progressive straining adjacent to the bladder, cystitis, gallstone gallbladder. Patient also had an MRI of the brain today, acute cortical infarction is seen in the left posterior frontal lobes frontal gyrus. Dr. Oscar Andres's note is reviewed. Overall prognosis is quiet poor. We will follow closely with you. Minh Padilla MD
--- NOTE | 2018-02-25 22:45 | PN ---
DATE: 02/25/2018 SUBJECTIVE: Patient is seen in CCU, bed 7. Patient is lying in the bed. Patient is alert, awake, responsive, but nonverbal. Patient has aphasia. Overnight events were noted. Patient developed complaint of abdominal pain for which patient underwent CAT scan. Patient was found overnight tachycardic with elevated blood pressure. Patient had stat labs done and a stat CAT scan done which was reviewed. This time, patient is lying in the bed. PHYSICAL EXAMINATION: VITAL SIGNS: T-max in the last 24 hours 98.4. Telemetry shows atrial fibrillation. Heart rate now down to 60s, 70s, 90s beats per minute. Overnight heart rate was in low 100s to 120s, 130s. Blood pressure in the last 24 hours peaked up to 206/104, 200/142, 162/83, 163/126, 133/71, down to 143/81, 166/88. O2 sat is 100%. HEENT: Patient's head examination is normocephalic, atraumatic. HEENT examination shows pink conjunctivae. Anicteric sclerae. No oropharyngeal lesion. NECK: No neck rigidity. Questionable soft carotid bruit. CHEST: Kyphosis. LUNGS: Show no rales, crackles, or wheezing. CARDIOVASCULAR: S1 and S2, irregular rhythm. Positive systolic murmur, left sternal border, right second intercostal space, left second intercostal space. ABDOMEN: Morbidly obese, distended. GENITALIA: Male. Positive Sevilla catheter. EXTREMITIES: Show chronic lymphedema of the lower extremity. Positive HECTOR wraps. MUSCULOSKELETAL: Shows elevated body mass index of 49.3. NEUROLOGIC: Patient is dysarthric. Nonverbal. Gait examination is not tested. DIAGNOSTICS: CBC from 02/25/2018, WBC 10.1, hemoglobin/hematocrit 14.8/44.8, platelets 133. Sodium 144, potassium 3.8, chloride 99, CO2 of 32, anion gap 17, BUN 21, creatinine 1.4, GFR greater than 60, glucose 127, hemoglobin A1c 5.5. Total bili 3.2, direct bili 0.9. Rest of the LFTs are normal. Vitamin D 25-hydroxy 35.5. Thyroid profile is within normal limit. PSA 0.7. Amylase, lipase are normal. Urine cultures, no growth. Blood cultures from 02/21/2018, no growth. Right and left leg cultures, Pseudomonas aeruginosa, E-coli, and MRSA. Blood type, O+. MRI of the brain, acute cortical infarcts in the left posterior frontal lobe along with precentral gyrus and more anteriorly in the speech area correlating with the history of right-sided weakness and aphasia, severe chronic microvascular changes of the periventricular white matter. CAT scan of the abdomen and pelvis done yesterday was reviewed. IMPRESSION: 1. Acute cortical infarcts of the left posterior frontal lobe with precentral gyrus involving the speech area. 2. Right hemiparesis, hemiplegia. 3. Dysarthria and expressive aphasia. 4. Severe chronic microvascular ischemic disease of the periventricular white matter. 5. Tachycardia. 6. Atrial fibrillation with rapid ventricle response and slow ventricular response. 7. Transient uncontrolled accelerated hypertension. 8. Cardiomegaly. 9. Cholelithiasis. 10. Gallbladder sludge. 11. Right renal cyst. 12. Questionable cystitis. 13. L3 thecal sac severe narrowing with disk herniation. 14. 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 15. Severe atrophy of the rectus abdominis muscle. 16. Bilateral inguinal lymphadenopathy, etiology undetermined. 17. Progressive urinary bladder stranding, questionable possible cystitis. 18. Super morbid obesity with elevated body mass index of 50. 19. Mild normocytic anemia. 20. Questionable prediabetes. 21. Hyperbilirubinemia. 22. History of hypothyroidism. 23. Questionable urinary retention. 24. Proteinuria, microscopic hematuria, bacteriuria. 25. Bilateral lower extremity Pseudomonas aeruginosa, Escherichia coli, and methicillin-resistant Staphylococcus aureus, bilateral lower extremity venous stasis ulceration and bilateral lower extremity lymphedema. 26. Status post acute cerebrovascular accident and status post tissue plasminogen activator. 27. Abdominal pain and abdominal distention with history of chronic constipation and gastric bypass surgery. 28. Questionable possible Gilbert's syndrome. 29. Gait dysfunction. 30. Left ventricle ejection fraction of 50% with borderline left ventricular function with severe pulmonary hypertension with right ventricular systolic pressure of 60 mmHg. 31. Moderately reduced right ventricular systolic function with borderline right ventricular dilatation. 32. Biatrial enlargement. 33. Thickened aortic valve. 34. Mildly thickened mitral valve. 35. Trace mitral regurgitation. 36. Moderate tricuspid regurgitation with severe pulmonary hypertension. 37. Prostatic hypertrophy. 38. Dyslipidemia. 39. Hypokalemia. 40. Episodic agitation and restlessness. 41. Hypothyroidism. 42. Hypovitaminosis D. 43. Oropharyngeal dysphagia with risk for aspiration with right-sided oral motor weakness and neglect. 1. Acute cerebrovascular accident with right-sided hemiparesis (slow resolving) and hemiplegia, status post tissue plasminogen activator. 2. Dysarthria versus expressive aphasia. 3. Slow resolving right-sided hemiparesis and hemiplegia. 4. Anticoagulation, Coumadin-requiring atrial fibrillation. 5. History of poor compliance and noncompliance with medications and diet. 6. Uncontrolled hypertension secondary to noncompliance. 7. Super morbid obesity with elevated body mass index of 52. 8. Mild normocytic anemia. 9. Hypomagnesemia. 10. Hypokalemia. 11. Probable diastolic congestive heart failure with elevated brain natriuretic peptide. 12. Indeterminate troponin. 13. History of gastric bypass surgery. 14. Bilateral lower extremity lymphedema with chronic venous stasis ulceration. 15. Methicillin-resistant Staphylococcus aureus and Pseudomonas aeruginosa infection. 16. Bilateral l lower extremity venous stasis cellulitis and ulceration. 17. Left ventricular ejection fraction of 50%. 18. Severe pulmonary hypertension with right ventricular systolic pressure of 60 mmHg. 19. Biatrial enlargement. 20. Moderate tricuspid regurgitation. 21. Moderately reduced right ventricular systolic function. 22. Mildly enlarged aortic root. 23. [id number] bilateral cavernous internal carotid artery stenosis secondary to atherosclerosis. 24. [id number] bilateral cavernous internal carotid artery stenosis. 25. Chronic microvascular ischemic disease, chronic ischemic changes and lacunar infarct of the bilateral basal ganglia and periventricular white matter disease of the basal ganglia and harshad. 26. Diffuse cerebral cortical atrophy of the brain. 27. Pontine chronic ischemic changes. 28. Mild ventriculomegaly. 29. Gait dysfunction. 30. Right hemiparesis versus hemiplegia. 31. Chronic microangiopathy. 32. History of gastric bypass surgery. 33. Episodic agitation. 34. History of hyperlipidemia. 35. History of prostatic hypertrophy. PLAN: At this time, patient will be continued on the above therapeutic intervention. Patient's repeat lab has been ordered. CURRENT CONSULTATION: Neurology, Cardiology, Gastroenterology, Infectious Disease, Podiatry, Physical Therapy, Occupational Therapy, gait training, speech therapy, swallow eval. Mucomyst nebulizer 20% twice a day, aspirin 81 mg daily, Cozaar 100 mg daily, Dilaudid 1 mg IV every 4 p.r.n., Dulcolax suppository 10 mg every 48 hours, DuoNeb nebulizer every 6 hours round the clock in 2 hours p.r.n., Flomax 0.4 mg daily, Lasix 40 mg IV every 12, Lipitor 40 mg daily, Lopressor changed to 50 mg twice a day p.o., patient is started by the ICU team, Lovenox 120 mg subcutaneous every 12, meropenem 1 g IV every 12, MiraLax 17 g twice a day, potassium supplementation ordered, Protonix 40 daily, Pyridium 100 mg p.o. three times a day, Senokot 17.2 mg at bedtime, Seroquel 50 mg at bedtime, Synthroid 25 mcg daily, Tylenol 650 every 4 p.r.n., vitamin D3 at 2000 units daily, Zyvox 600 mg IV every 12 hours. Patient has been ordered BiPap. Patient is on dysphagia modified consistency diet. Patient has been ordered Sevilla catheter placement last night, which has actually relieved a significant amount of abdominal pain as per the patient's nurse today. Patient has been ordered out of bed, SCDs, PRASHANT stockings, Occupational Therapy, Physical Therapy, speech therapy, swallow eval ordered. At present, I have met with the patient's today. I have explained to the patient's about the patient's condition, diagnosis, test results, and recommendation by all the physicians involved in the care of the patient. I have advised the patient's to discuss the discharge planning options with the social workers and pillowcase cutter. Time spent is more than 35 minutes. Dictated and electronically signed, not read. Rashad Brown MD [facility]
[2018-02-26 00:48] VITALS: RESP 20
[2018-02-26] MEDS: HYDROmorphone 0.5 mg/0.5 ml ISec IVP PRN (01:38)
[2018-02-26] MEDS: Albuterol-Ipratrop 3 mg / 0.5 (3 ml) UD IH SCH ×3 (02:17→13:12)
[2018-02-26 05:50] LABS: BASO # 0.01 K/mm3 (0.0-2.0); BASO % 0.1 % (0.0-3.0); EOS # 0.3 (0.0-0.7); EOS % 3.5 % (1.5-5.0); GRAN # 4.74 (1.4-6.5); GRAN % 63.3 % (50.0-68.0); HEMOGLOBIN 12.9 g/dL (14.0-18.0); LYMPH # 1.9 (1.2-3.4); LYMPH % 25.4 % (22.0-35.0); MEAN CELL VOLUME 92.4 fl (80.0-105.0); MEAN CORPUSCULAR HEMOGLOBIN 29.6 pg (25.0-35.0); MEAN PLATELET VOLUME 9.1 fl (7.0-11.0); MONO # 0.6 (0.1-0.6); MONO % 7.7 % (1.0-6.0); RBC 4.36 10^6/uL (3.5-6.1); RED CELL DISTRIBUTION WIDTH 14.6 % (11.5-14.5); WHITE BLOOD COUNT 7.5 10^3/ul (4.5-11.0)
[2018-02-26 06:08] LABS: INR 1.42 (0.93-1.08); PROTHROMBIN TIME 16.5 SECONDS (9.4-12.5)
[2018-02-26 06:09] LABS: PARTIAL THROMBOPLASTIN TIME 38.4 Seconds (25.1-36.5)
[2018-02-26 06:24] VITALS: O2SAT 97
[2018-02-26 06:58] LABS: ALBUMIN 3.2 g/dL (3.0-4.8); BILIRUBIN,DIRECT 0.4 mg/dL (0.0-0.4); CALCIUM 8.5 mg/dL (8.4-10.5)
[2018-02-26] MEDS: Acetylcysteine 20% Inhal Soln (4ml) IH SCH (07:25)
[2018-02-26] MEDS ORDERED: Pantoprazole 40 mg EC Tab PO SCH (07:30)
[2018-02-26] MEDS ORDERED: Potassium Chloride 20 mEq ER Tab PO SCH ×2 (10:00→12:00)
[2018-02-26] MEDS: Cholecalciferol 1,000 INTLU TAB PO SCH (10:23)
[2018-02-26] MEDS: Levothyroxine 25 MCG TAB PO SCH (10:24)
[2018-02-26] MEDS: Linezolid 600 mg in D5W 300 ml 600 MG/300 ML BAG IVPB SCH (10:24)
[2018-02-26] MEDS: POLYETHYLENE GLYCOL 3350 17 GM/Dose PACKET PO SCH ×2 (10:24→17:37)
--- NOTE | 2018-02-26 11:18 | PN ---
DATE: 02/26/2018 CARDIOLOGY FOLLOWUP SUBJECTIVE: The patient is in bed, lethargic, but no distress. PHYSICAL EXAMINATION: VITAL SIGNS: Blood pressure is 107/69, heart rate is in the 70s, atrial fibrillation. NECK: Negative JVD. LUNGS: Decreased breath sounds. HEART: Reveals S1, S2. EXTREMITIES: Without edema. LABORATORY DATA: BUN and creatinine are 24 and 1.6, glucose is 112, hemoglobin is 12.9. IMPRESSION: 1. Cerebrovascular accident. 2. Blood pressure is relatively low compared to his accelerated hypertension. 3. Atrial fibrillation. 4. Progressive prerenal azotemia. PLAN: Given these findings, we will decrease his HECTOR inhibitor. We will decrease his Lasix. The patient needs to be anticoagulated for his atrial fibrillation. Oscar Andres MD
--- NOTE | 2018-02-26 11:58 | CP.PCM.PN ---
Subjective - Date & Time of Evaluation Date of Evaluation: 02/26/18 Time of Evaluation: 11:58 - Subjective Subjective: Mr. Damon was seen and examined at the bedside. He remains non-verbal, aphrasic , awake, uses non verbal cue to communicate such as nodding, thumbs up or down, or shaking his head. He denies any headache, dizziness.Sensation remains intact. He is able to follow some commands such as opening his mouth, sticking out his tongue, squeezing his left hand. with minimal vertical movement noted in his right upper extremity and right facial droop. There was no untoward events overnight. Objective - Vital Signs/Intake and Output Vital Signs (last 24 hours): Temp Pulse Resp BP Pulse Ox 97.8 F 75 20 149/69 97 02/26/18 11:57 02/26/18 11:57 02/26/18 11:57 02/26/18 11:57 02/26/18 06:00 Intake and Output: 02/26/18 02/26/18 06:59 18:59 Intake Total 300 Output Total 1600 Balance -1300 - Medications Medications: Current Medications Acetaminophen (Tylenol 325mg Tab) 650 mg PO Q4H PRN PRN Reason: pain and fever Last Admin: 02/23/18 20:00 Dose: 650 mg Acetylcysteine (Acetylcysteine 20%) 4 ml IH BIDRESP [facility] Last Admin: 02/26/18 07:25 Dose: 4 ml Albuterol/Ipratropium (Duoneb 3 Mg/0.5 Mg (3 Ml) Ud) 3 ml IH [id number] [facility] Last Admin: 02/26/18 07:25 Dose: 3 ml Albuterol/Ipratropium (Duoneb 3 Mg/0.5 Mg (3 Ml) Ud) 3 ml IH Q2H PRN PRN Reason: Shortness of Breath Apixaban (Eliquis) 5 mg PO BID [facility] PRN Reason: Protocol Aspirin (Aspirin Chewable) 81 mg PO DAILY [facility] Last Admin: 02/26/18 10:22 Dose: 81 mg Atorvastatin Calcium (Lipitor) 40 mg PO DIN [facility] Last Admin: 02/25/18 17:08 Dose: 40 mg Bisacodyl (Dulcolax) 10 mg RC Q48H [facility] Last Admin: 02/25/18 09:00 Dose: 10 mg Cholecalciferol (Vitamin D) 2,000 intlu PO DAILY [facility] Last Admin: 02/26/18 10:23 Dose: 2,000 intlu Furosemide (Lasix) 40 mg IVP DAILY [facility] Hydromorphone HCl (Dilaudid) 1 mg IVP Q4H PRN PRN Reason: Pain, moderate (4-7) Last Admin: 02/26/18 01:38 Dose: 1 mg Linezolid (Zyvox 600mg/300ml D5w) 600 mg in 300 mls @ 200 mls/hr IVPB Q12 [facility] PRN Reason: Protocol Stop: 02/28/18 10:46 Last Admin: 02/26/18 10:24 Dose: 200 mls/hr Meropenem (Merrem Iv 1 Gm Premix) 50 mls @ 100 mls/hr IVPB Q12 [facility] PRN Reason: Protocol Last Admin: 02/25/18 21:44 Dose: 100 mls/hr Levothyroxine Sodium (Synthroid) 25 mcg PO DAILY [facility] Last Admin: 02/26/18 10:24 Dose: 25 mcg Losartan Potassium (Cozaar) 50 mg PO DAILY [facility] Metoprolol Tartrate (Lopressor) 50 mg PO BID [facility] Last Admin: 02/26/18 10:25 Dose: 50 mg Pantoprazole Sodium (Protonix Ec Tab) 40 mg PO ACB [facility] Last Admin: 02/26/18 10:24 Dose: 40 mg Polyethylene Glycol (Miralax) 17 gm PO BID [facility] Last Admin: 02/26/18 10:24 Dose: 17 gm Potassium Chloride (K-Dur 20 Meq Er Tab) 20 meq PO DAILY [facility] Quetiapine Fumarate (Seroquel) 50 mg PO HS [facility] PRN Reason: Protocol Last Admin: 02/25/18 21:45 Dose: 50 mg Sennosides (Senokot Tab) 17.2 mg PO HS [facility] Last Admin: 02/25/18 21:49 Dose: 17.2 mg Tamsulosin HCl (Flomax) 0.4 mg PO DAILY [facility] Last Admin: 02/26/18 10:24 Dose: 0.4 mg - Labs Labs: 02/26/18 05:30 02/26/18 05:30 PT 16.5 SECONDS (9.4-12.5) H 02/26/18 05:30 INR 1.42 (0.93-1.08) H 02/26/18 05:30 APTT 38.4 Seconds (25.1-36.5) H 02/26/18 05:30 - Constitutional Appears: No Acute Distress - Head Exam Head Exam: NORMAL INSPECTION - Extremities Exam Additional comments: bilateral lower extremities weeping edema more prominent in his right leg. - Neurological Exam Neurological Exam: Awake Neuro motor strength exam: Left Upper Extremity: 4, Right Upper Extremity: 2/1, Left Lower Extremity: 3, Right Lower Extremity: 3 Additional comments: neurological unchanged from previous examination. Assessment and Plan (1) CVA (cerebral vascular accident) Assessment & Plan: Case discussed with Dr. Hendricks, continue all current medical ( including anticoagulant eliquis 5 mg PO BID), physical, occupational, and speech therapies. Pending MRI of the brain without contrast ( pending weight limit). Recommend blood pressure control, keep head of bed elevated, for physical therapy to start electrical; stimulation on his right upper extremity pending acute rehab acceptance. Status: Acute
--- NOTE | 2018-02-26 12:36 | CP.PCM.PN ---
Subjective - Date & Time of Evaluation Date of Evaluation: 02/26/18 Time of Evaluation: 12:34 - Subjective Subjective: Podiatry consult note: Dr. Sebastian/Dr. Byers 63 year old male was seen and evaluated at bedside for b/l venous stasis leg ulcerations. Patient is AAOx3. Appears to be resting comfortably in his bed. Denies of any new complains at this time. Leg dressing appears clean, dry and intact. Objective - Vital Signs/Intake and Output Vital Signs (last 24 hours): Temp Pulse Resp BP Pulse Ox 97.8 F 75 20 149/69 97 02/26/18 11:57 02/26/18 11:57 02/26/18 11:57 02/26/18 11:57 02/26/18 06:00 Intake and Output: 02/26/18 02/26/18 06:59 18:59 Intake Total 300 Output Total 1600 Balance -1300 - Medications Medications: Current Medications Acetaminophen (Tylenol 325mg Tab) 650 mg PO Q4H PRN PRN Reason: pain and fever Last Admin: 02/23/18 20:00 Dose: 650 mg Acetylcysteine (Acetylcysteine 20%) 4 ml IH BIDRESP [facility] Last Admin: 02/26/18 07:25 Dose: 4 ml Albuterol/Ipratropium (Duoneb 3 Mg/0.5 Mg (3 Ml) Ud) 3 ml IH [id number] [facility] Last Admin: 02/26/18 07:25 Dose: 3 ml Albuterol/Ipratropium (Duoneb 3 Mg/0.5 Mg (3 Ml) Ud) 3 ml IH Q2H PRN PRN Reason: Shortness of Breath Apixaban (Eliquis) 5 mg PO BID [facility] PRN Reason: Protocol Aspirin (Aspirin Chewable) 81 mg PO DAILY [facility] Last Admin: 02/26/18 10:22 Dose: 81 mg Atorvastatin Calcium (Lipitor) 40 mg PO DIN [facility] Last Admin: 02/25/18 17:08 Dose: 40 mg Bisacodyl (Dulcolax) 10 mg RC Q48H [facility] Last Admin: 02/25/18 09:00 Dose: 10 mg Cholecalciferol (Vitamin D) 2,000 intlu PO DAILY [facility] Last Admin: 02/26/18 10:23 Dose: 2,000 intlu Furosemide (Lasix) 40 mg IVP DAILY [facility] Hydromorphone HCl (Dilaudid) 1 mg IVP Q4H PRN PRN Reason: Pain, moderate (4-7) Last Admin: 02/26/18 01:38 Dose: 1 mg Linezolid (Zyvox 600mg/300ml D5w) 600 mg in 300 mls @ 200 mls/hr IVPB Q12 [facility] PRN Reason: Protocol Stop: 02/28/18 10:46 Last Admin: 02/26/18 10:24 Dose: 200 mls/hr Meropenem (Merrem Iv 1 Gm Premix) 50 mls @ 100 mls/hr IVPB Q12 [facility] PRN Reason: Protocol Last Admin: 02/25/18 21:44 Dose: 100 mls/hr Levothyroxine Sodium (Synthroid) 25 mcg PO DAILY [facility] Last Admin: 02/26/18 10:24 Dose: 25 mcg Losartan Potassium (Cozaar) 50 mg PO DAILY [facility] Metoprolol Tartrate (Lopressor) 50 mg PO BID [facility] Last Admin: 02/26/18 10:25 Dose: 50 mg Pantoprazole Sodium (Protonix Ec Tab) 40 mg PO ACB [facility] Last Admin: 02/26/18 10:24 Dose: 40 mg Polyethylene Glycol (Miralax) 17 gm PO BID [facility] Last Admin: 02/26/18 10:24 Dose: 17 gm Potassium Chloride (K-Dur 20 Meq Er Tab) 20 meq PO DAILY [facility] Quetiapine Fumarate (Seroquel) 50 mg PO HS [facility] PRN Reason: Protocol Last Admin: 02/25/18 21:45 Dose: 50 mg Sennosides (Senokot Tab) 17.2 mg PO HS [facility] Last Admin: 02/25/18 21:49 Dose: 17.2 mg Tamsulosin HCl (Flomax) 0.4 mg PO DAILY [facility] Last Admin: 02/26/18 10:24 Dose: 0.4 mg - Labs Labs: 02/26/18 05:30 02/26/18 05:30 PT 16.5 SECONDS (9.4-12.5) H 02/26/18 05:30 INR 1.42 (0.93-1.08) H 02/26/18 05:30 APTT 38.4 Seconds (25.1-36.5) H 02/26/18 05:30 - Constitutional Appears: Well, Non-toxic, No Acute Distress - Extremities Exam Additional comments: B/l LE focused exam Vasc: DP/PT pulses non-palpable secondary to b/l lymphedema. CFT > 3 seconds to all digits. Skin temperature warm to warm from proximal to distal. Severe b/l lymphedema noted b/l Neuro: Unable to assess due to mental status Derm: RLE - Approx 6 cm x 5 cm superficial venous stasis ulceration noted to lateral right leg. No erythema, no malodor, no other clinical signs of infection. Moderate serous drainage noted to site. Base is fibrogranular. LLE- One 0.5 cm x 0.5 cm x 0.1 venous stasis ulceration noted to anterior leg and one noted to posterior leg. No erythema, no malodor, no other clinical signs of infection. Moderate serous drainage noted to site. Base is fibrogranular. MSK: Unable to assess pain on palpation, MMT or ROM. No other gross deformities noted - Neurological Exam Neurological Exam: Alert, Awake, Oriented x3 - Psychiatric Exam Psychiatric exam: Normal Affect, Normal Mood Assessment and Plan - Assessment and Plan (Free Text) Assessment: 63 year old male evaluated for b/l venous stasis ulcerations R worse than L Plan: Patient seen and evaluated, discussed plan with attending Dr. Sebastian Absent leukocytosis wound cx - Pseudomonas, MRSA Continue abx per ID Wounds cleansed with saline and dressed with DSD, ABD right side, optifoam left side No plan for surgical intervention at this time Podiatry will continue to follow while patient in house
[2018-02-26] MEDS: Meropenem IV 1 gm in NS 50 ML IVPB SCH (12:45)
--- NOTE | 2018-02-26 12:54 | PN ---
FINAL PROGRESS NOTE AND DISCHARGE SUMMARY DATE: 02/26/2018 SUBJECTIVE: The patient is now in 263, bed 1. The patient is lying in the bed. The patient still is nonverbal. Has expressive aphasia. Overnight nurse's notes were reviewed. The patient has had episodic yelling and moaning, was taking off cloths according to the nurses' notes last night. The patient was given p.r.n. Dilaudid. PHYSICAL EXAMINATION: VITAL SIGNS: T-max is 98.1. Telemetry shows atrial fibrillation, heart rate in the 60s, 70s and 90s. Blood pressure is 125/96, 107/69, 152/68, 146/73, 180/93. Respirations 20, O2 sat 97%. Intake/output: Intake today is 300, output 1600. HEENT: Head examination normocephalic, atraumatic. HEENT examination shows pinkish conjunctivae. Anicteric sclerae. The patient is aphasic. Questionable soft carotid bruit. CHEST: Kyphosis. LUNGS: Shows decreased breath sound at the bases. Occasional rhonchi, upper lung saini. CARDIOVASCULAR: S1, S2, irregular rhythm. Positive systolic murmur, left sternal border, right second intercostal space, left second intercostal space. ABDOMEN: Morbidly obese, protuberant. Positive voluntary guarding. Positive tenderness in the left side of the abdomen. No rebound tenderness. GENITALIA: Male. Positive Sevilla catheter. EXTREMITY: Shows Kameron wrap. Positive lymphedema. MUSCULOSKELETAL: Shows a body mass index of 48.6. NEUROLOGICAL: The patient is awake, responsive. Episodes of agitation and restlessness noted. DIAGNOSTICS: On 02/26/2018, WBC 7.5, hemoglobin and hematocrit 12.9 and 40.3, platelet 123. PT/PTT 16.5, 38.4. Sodium 145, potassium 3.6, chloride 101, CO2 of 34, anion gap 14, BUN 24, creatinine 1.65, GFR 53, glucose 94, calcium 8.5, phosphorus 3.1, magnesium 2, total bili 2.5. Rest of the LFTs are normal. Urine and blood cultures repeat negative. Blood type A+. MRI of the brain noted. Last EKG noted. FINAL IMPRESSION AND PLAN & DISCHARGE DIAGNOSES: 1. Acute cortical infarcts of the left posterior frontal lobe with precentral gyrus involving the speech area with right hemiparesis and hemiplegia and dysarthria and expressive aphasia. 2. Severe deconditioning and gait dysfunction. 3. Moderate oropharyngeal dysphagia with risk for aspiration with right-sided oral motor weakness and neglect. 4. Uncontrolled hypertension. 5. Atrial fibrillation with rapid and slow ventricular response. 6. Super morbid obesity with elevated body mass index of 48.6. 7. Mild normocytic anemia. 8. Granulocytosis. 9. Coumadin-dependent atrial fibrillation, noncompliant with medication. 10. Acute kidney injury. 11. Prediabetes 12. Hypokalemia. 13. Hyperbilirubinemia. 14. Gilbert syndrome. 15. Congestive heart failure with elevated BNP. 16. History of hypercholesteremia. 17. History of hypothyroidism. 18. History of chronic constipation. 19. History of gastric bypass. 20. Proteinuria. 21. Microscopic hematuria. 22. Bacteriuria. 23. Pseudomonas aeruginosa, Escherichia coli and methicillin-resistant Staphylococcus aureus, bilateral lower extremity cellulitis and chronic venous stasis ulceration and cellulitis and lymphedema. 24. A+ blood type. 25. Severe gait dysfunction secondary to acute cerebrovascular infarct, right hemiparesis, hemiplegia and morbid obesity. 26. Deconditioning. 27. Expressive aphasia, dysarthria. 28. Right hemiparesis, hemiplegia. 29. Acute cerebrovascular accident, status post tissue plasminogen activator. 1. Acute cortical infarcts of the left posterior frontal lobe with precentral gyrus involving the speech area. 2. Right hemiparesis, hemiplegia. 3. Dysarthria and expressive aphasia. 4. Severe chronic microvascular ischemic disease of the periventricular white matter. 5. Tachycardia. 6. Atrial fibrillation with rapid ventricle response and slow ventricular response. 7. Transient uncontrolled accelerated hypertension. 8. Cardiomegaly. 9. Cholelithiasis. 10. Gallbladder sludge. 11. Right renal cyst. 12. Questionable cystitis. 13. L3 thecal sac severe narrowing with disk herniation. 14. 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 15. Severe atrophy of the rectus abdominis muscle. 16. Bilateral inguinal lymphadenopathy, etiology undetermined. 17. Progressive urinary bladder stranding, questionable possible cystitis. 18. Super morbid obesity with elevated body mass index of 50. 19. Mild normocytic anemia. 20. Questionable prediabetes. 21. Hyperbilirubinemia. 22. History of hypothyroidism. 23. Questionable urinary retention. 24. Proteinuria, microscopic hematuria, bacteriuria. 25. Bilateral lower extremity Pseudomonas aeruginosa, Escherichia coli, and methicillin-resistant Staphylococcus aureus, bilateral lower extremity venous stasis ulceration and bilateral lower extremity lymphedema. 26. Status post acute cerebrovascular accident and status post tissue plasminogen activator. 27. Abdominal pain and abdominal distention with history of chronic constipation and gastric bypass surgery. 28. Questionable possible Gilbert's syndrome. 29. Gait dysfunction. 30. Left ventricle ejection fraction of 50% with borderline left ventricular function with severe pulmonary hypertension with right ventricular systolic pressure of 60 mmHg. 31. Moderately reduced right ventricular systolic function with borderline right ventricular dilatation. 32. Biatrial enlargement. 33. Thickened aortic valve. 34. Mildly thickened mitral valve. 35. Trace mitral regurgitation. 36. Moderate tricuspid regurgitation with severe pulmonary hypertension. 37. Prostatic hypertrophy. 38. Dyslipidemia. 39. Hypokalemia. 40. Episodic agitation and restlessness. 41. Hypothyroidism. 42. Hypovitaminosis D. 43. Oropharyngeal dysphagia with risk for aspiration with right-sided oral motor weakness and neglect. 1. Acute cerebrovascular accident with right-sided hemiparesis (slow resolving) and hemiplegia, status post tissue plasminogen activator. 2. Dysarthria versus expressive aphasia. 3. Slow resolving right-sided hemiparesis and hemiplegia. 4. Anticoagulation, Coumadin-requiring atrial fibrillation. 5. History of poor compliance and noncompliance with medications and diet. 6. Uncontrolled hypertension secondary to noncompliance. 7. Super morbid obesity with elevated body mass index of 52. 8. Mild normocytic anemia. 9. Hypomagnesemia. 10. Hypokalemia. 11. Probable diastolic congestive heart failure with elevated brain natriuretic peptide. 12. Indeterminate troponin. 13. History of gastric bypass surgery. 14. Bilateral lower extremity lymphedema with chronic venous stasis ulceration. 15. Methicillin-resistant Staphylococcus aureus and Pseudomonas aeruginosa infection. 16. Bilateral l lower extremity venous stasis cellulitis and ulceration. 17. Left ventricular ejection fraction of 50%. 18. Severe pulmonary hypertension with right ventricular systolic pressure of 60 mmHg. 19. Biatrial enlargement. 20. Moderate tricuspid regurgitation. 21. Moderately reduced right ventricular systolic function. 22. Mildly enlarged aortic root. 23. [id number]-ubkrbchb bilateral cavernous internal carotid artery stenosis secondary to atherosclerosis. 24. Mihk-xn-lprnhrjy bilateral cavernous internal carotid artery stenosis. 25. Chronic microvascular ischemic disease, chronic ischemic changes and lacunar infarct of the bilateral basal ganglia and periventricular white matter disease of the basal ganglia and harshad. 26. Diffuse cerebral cortical atrophy of the brain. 27. Pontine chronic ischemic changes. 28. Mild ventriculomegaly. 29. Gait dysfunction. 30. Right hemiparesis versus hemiplegia. 31. Chronic microangiopathy. 32. History of gastric bypass surgery. 33. Episodic agitation. 34. History of hyperlipidemia. 35. History of prostatic hypertrophy. Plan at this time, the patient's [employer] notes from today was reviewed. The patient was denied by [facility] due to low ability and behavioral issue. The patient's family was informed about the patient's denial as the patient is unable to handle 3 hours of therapy. The patient's was contacted by [employer], message left. The patient will be continued. The patient has been ordered repeat labs. Current consultation: Neurology, Cardiology, Gastroenterology, Infectious Disease, Podiatry. The patient has been requested to be seen by Psychiatry for evaluation of episodic agitation. Current medications: Mucomyst nebulizer 4 mL twice a day nebulizer, aspirin 81 mg daily, Cozaar decreased to 50 mg daily. The patient is on Dilaudid 1 mg IV every 4 p.r.n., Dulcolax suppository every 48 hours, DuoNeb nebulizer every 6 hours [id number] every 2 hours p.r.n. The patient is started on Eliquis 5 mg twice a day, Lovenox is discontinued, Flomax 0.4 mg daily, K-Dur 20 mEq twice a day, Lasix 40 mg IV daily, Lipitor 40 mg, potassium will be started on 20 mEq p.o. daily. The patient is on Lasix 40 IV push daily, Lipitor 40 mg daily, Lopressor 50 mg twice a day, meropenem 1 g IV every 12, MiraLax 17 g twice a day, Protonix 40 mg daily, Senokot 17.2 mg at bedtime, Seroquel 50 mg at bedtime, Synthroid 25 mcg daily, Tylenol p.r.n., vitamin D3 of 2000 International Units daily, Zyvox 600 mg IV every 12. The patient is on BiPAP, which the patient has been refusing. The patient's has been on dysphagia modified consistency diet, out of bed, physical therapy, occupational therapy, speech therapy, swallow evaluation to be continued. The patient's overall prognosis is guarded to poor because of the patient's morbid obesity and multiple comorbidities, which has been explained to the patient's yesterday at extreme length. PATIENT'S FAMILY DECLINED [facility] AND CHOSE [facility] AT [facility]. Dictated and electronically signed, not read. Rashad Brown MD MTDD
--- NOTE | 2018-02-26 16:19 | PN ---
DATE: 02/26/2018 SUBJECTIVE: The patient is in bed, in no acute distress, nontoxic. The patient seen early this morning in 263, bed 1. PHYSICAL EXAMINATION: VITAL SIGNS: Temperature is 98, blood pressure is 120/70, respiratory rate 16. HEENT: Unremarkable. NECK: Supple. LUNGS: Have decreased breath sounds. HEART: Normal S1, S2. ABDOMEN: Soft, nontender. No rebound. No guarding. No masses. LABORATORY DATA: Reveals white count of 7.5, hemoglobin of 12, platelets of 123 and the chemistries reveal a BUN of 24, creatinine of 1.6. Urinalysis is noted and microbiology reveals the urine culture is negative blood cultures are negative. The culture of the leg is noted. ASSESSMENT AND PLAN: This is a 63-year-old male with morbid obesity, body mass index of 48 who was seen earlier this morning with a right leg infected ulcer with methicillin-resistant Staphylococcus aureus and Pseudomonas, now with acute cerebrovascular accident, right-sided weakness, status post t-PA infusion, with a history of left lower extremity skin and skin soft tissue infection, Klebsiella and day #6 of Zyvox and meropenem, would complete 7 to 10 days as his leg appears to be improving. Minh Padilla MD
[2018-02-26 17:48] VITALS: BP 159/78; PULSE 109; TEMP 98.6
== END 2018-02-26 21:28 | DRG 62 ==
LOC: ED 16:54 → ERH 20:08 → CCU 21:01 → 2RNO 02-25 22:24
PROVIDERS: ADMIT Internal Medicine; ATTEND Internal Medicine
PROC: 3E03317 Introduction of Other Thrombolytic into Peripheral Vein, Percutaneous Approach (ICD-10-PCS; principal; 2018-02-20)
PROC: 3E0F7GC Introduction of Other Therapeutic Substance into Respiratory Tract, Via Natural or Artificial Opening (ICD-10-PCS; 2018-02-24)
DX: I63.9 Cerebral infarction, unspecified (principal); I13.0 Hypertensive heart and chronic kidney disease with heart failure and stage 1 through stage 4 chronic kidney disease, or unspecified chronic kidney disease; G81.91 Hemiplegia, unspecified affecting right dominant side; R47.01 Aphasia; L03.115 Cellulitis of right lower limb; L97.919 Non-pressure chronic ulcer of unspecified part of right lower leg with unspecified severity; L97.929 Non-pressure chronic ulcer of unspecified part of left lower leg with unspecified severity; Z68.43 Body mass index [BMI] 50.0-59.9, adult; I50.42 Chronic combined systolic (congestive) and diastolic (congestive) heart failure; N17.9 Acute kidney failure, unspecified; L03.116 Cellulitis of left lower limb; J44.9 Chronic obstructive pulmonary disease, unspecified; I48.2 Chronic atrial fibrillation; G47.33 Obstructive sleep apnea (adult) (pediatric); R13.12 Dysphagia, oropharyngeal phase; E66.01 Morbid (severe) obesity due to excess calories; B95.62 Methicillin resistant Staphylococcus aureus infection as the cause of diseases classified elsewhere; B96.5 Pseudomonas (aeruginosa) (mallei) (pseudomallei) as the cause of diseases classified elsewhere; I87.2 Venous insufficiency (chronic) (peripheral); I89.0 Lymphedema, not elsewhere classified; N18.9 Chronic kidney disease, unspecified; K80.20 Calculus of gallbladder without cholecystitis without obstruction; I25.10 Atherosclerotic heart disease of native coronary artery without angina pectoris; I27.20 Pulmonary hypertension, unspecified; I65.23 Occlusion and stenosis of bilateral carotid arteries; I36.1 Nonrheumatic tricuspid (valve) insufficiency; R47.1 Dysarthria and anarthria; E03.9 Hypothyroidism, unspecified; N28.1 Cyst of kidney, acquired; E55.9 Vitamin D deficiency, unspecified; R73.03 Prediabetes; N40.0 Benign prostatic hyperplasia without lower urinary tract symptoms; E87.6 Hypokalemia; E78.00 Pure hypercholesterolemia, unspecified; E80.4 Gilbert syndrome; E83.42 Hypomagnesemia; Z91.19 Patient's noncompliance with other medical treatment and regimen; Z91.14 Patient's other noncompliance with medication regimen; Z79.01 Long term (current) use of anticoagulants; Z91.11 Patient's noncompliance with dietary regimen; Z98.84 Bariatric surgery status

== ENCOUNTER 2018-06-03 22:30 | Emergency (ER) | payer MEDICARE ==
[2018-06-03 22:31] VITALS: PULSE 58
[2018-06-03 22:57] VITALS: BMI 57.4
--- NOTE | 2018-06-03 22:58 | ED PDOC ---
Arrival/HPI - General Chief Complaint: Male Genitourinary Time Seen by Provider: 06/03/18 22:42 Historian: Patient, Family - History of Present Illness Narrative History of Present Illness (Text): 06/03/18 22:54 Ismael Damon is a 63 year old male, whose past medical history includes atrial fibrillation (on eliquis), CHF, hypertension, stroke, prostate issues with failed suprapubic catheter in the past and current Chacon catheter 22F through the penis for the past 6 weeks, who presents to the ED brought in by family complaining of chacon catheter dysfunction. Family states patient's chacon catheter is not working properly and is urinating everywhere around the Chacon. Patient denies any fever, chills, abdominal pain, fatigue, or any other complaints. Patient is eating and drinking well. Context: Home Past Medical History - Provider Review Nursing Documentation Reviewed: Yes - Past History Past History: No Previous - Infectious Disease Hx of Infectious Diseases: None - Tetanus Immunization Tetanus Immunization: Unknown - Cardiac Hx Cardiac Arrhythmia: Yes (A-FIB) - Pulmonary Hx Chronic Obstructive Pulmonary Disease (COPD): Yes - Neurological Hx Neurological Disorder: Yes - Renal Hx Renal Disorder: Yes - Endocrine/Metabolic Hx Endocrine Disorders: Yes - Integumentary Hx Dermatological Disorder: Yes (CELLULITIS TO LOWER EXTREMITY) - Musculoskeletal/Rheumatological Hx Arthritis: Yes - Gastrointestinal Hx Gastrointestinal Disorders: Yes Hx Constipation: Yes - Psychiatric Hx Depression: Yes Hx Substance Use: Yes - Surgical History Hx Gastric Bypass Surgery: Yes (Lap band) Hx Orthopedic Surgery: Yes - Anesthesia Hx Anesthesia: Yes Hx Anesthesia Reactions: No Hx Malignant Hyperthermia: No - Suicidal Assessment Feels Threatened In Home Enviroment: No Family/Social History - Physician Review Nursing Documentation Reviewed: Yes Family/Social History: Unknown Family HX Smoking Status: Never Smoked Hx Alcohol Use: Yes Hx Substance Use: Yes Hx Substance Use Treatment: No Allergies/Home Meds Allergies/Adverse Reactions: Allergies No Known Allergies Allergy (Verified 12/31/16 13:16) Home Medications: Home Meds Medication Instructions Recorded Confirmed Furosemide [Lasix] 80 mg PO BID 02/12/18 02/20/18 Linaclotide [Linzess] 1 cap PO DAILY 02/12/18 02/20/18 Atorvastatin [Lipitor] 40 mg PO HS 04/16/18 Multivitamin [Multivitamins] 1 each PO DAILY 04/16/18 Review of Systems - Physician Review All systems were reviewed & negative as marked: Yes - Review of Systems Constitutional: absent: Fatigue, Fevers Eyes: absent: Vision Changes ENT: absent: Hearing Changes Respiratory: absent: SOB, Cough Cardiovascular: absent: Chest Pain Gastrointestinal: absent: Abdominal Pain, Nausea, Vomiting Genitourinary Male: Other (+defective Chacon catheter). absent: Dysuria, Frequency, Hematuria, Urinary Output Changes Musculoskeletal: absent: Arthralgias, Back Pain Skin: absent: Rash, Pruritis Psychiatric: absent: Anxiety, Depression, Suicidal Ideation Physical Exam Vital Signs Reviewed: Yes Vital Signs Temp Pulse Resp BP Pulse Ox 06/04/18 01:01 78 17 133/61 100 06/03/18 22:48 97.7 F 66 18 153/71 H 95 Temperature: Afebrile Blood Pressure: Hypertensive Pulse: Regular Respiratory Rate: Normal Appearance: Positive for: Well-Appearing, Non-Toxic, Comfortable Pain Distress: None Mental Status: Positive for: Alert and Oriented X 3 - Systems Exam Head: Present: Atraumatic, Normocephalic Pupils: Present: PERRL Extroacular Muscles: Present: EOMI Conjunctiva: Present: Normal Mouth: Present: Moist Mucous Membranes Neck: Present: Normal Range of Motion Respiratory/Chest: Present: Clear to Auscultation, Good Air Exchange. No: Respiratory Distress, Accessory Muscle Use Cardiovascular: Present: Regular Rate and Rhythm, Normal S1, S2. No: Murmurs Abdomen: Present: Normal Bowel Sounds. No: Tenderness, Distention, Peritoneal Signs, Other (No abdominal cellulitis) Genitourinary Male: Present: Normal External Genitalia, Other (Visible old, discolored Chacon catheter at tip of urethra, no oozing discharge from urethra) Back: Present: Normal Inspection Upper Extremity: Present: Normal Inspection. No: Cyanosis, Edema Lower Extremity: Present: Normal Inspection. No: Edema Neurological: Present: GCS=15, CN II-XII Intact, Speech Normal, Motor Func Grossly Intact (Residual weakness from previous stroke), Memory Normal Skin: Present: Warm, Dry, Normal Color. No: Rashes, Other (No thigh/abdomen/pubic cellulitis) Lymphatic: No: Other (No regional lymphadenopathy) Psychiatric: Present: Alert, Oriented x 3, Normal Insight, Normal Concentration Medical Decision Making ED Course and Treatment: 06/03/18 22:54 Impression: 63 year old male brought in for defection chacon catheter. Plan: -- Urinalysis -- Chacon catheter change -- Reassess and disposition Prior Visits: Notes and results from previous visits were reviewed. Progress Notes: 06/03/18 23:07 -Old catheter deflated approx. 40cc of saline from the ballon. PROCEDURE: CHACON CATHETER PLACEMENT Performed by the emergency provider Consent: Informed consent, after discussion of the risks, benefits, and alternatives to the procedure, was obtained. Timeout: A timeout to verify the correct patient, procedure, and site was performed immediately prior to the procedure. Indication: defective chacon catheter Skin Preparation: Hand hygiene performed prior to chacon catheter insertion. The area was cleansed and prepped with betadine and sterile procedure. Tube Size: 22 F (same as before) Confirmation: placement was verified by OTA Ginger and me Post-procedure: Patient tolerated the procedure well with no immediate complications, immediately the clear urine released from the tube 06/04/18 01:11 -UA show +UTI -Chacon bag and chacon double check, no visible hematuria, comfortable and request to be discharge home. -Rocehine ordered. -I offer further observation in the ER but the patient is agitated and wants to go home, yelling at me and the saying he wants to go home. -He has follow up appointment with Dr. Devine today and Dr. Nance on this week saturday, will discharge home. -Discharge home with keflex, new chacon, follow up with your own pmd and Dr. Nance within 2 days, return to the ER for any new or worsening signs or symptoms. - Lab Interpretations Lab Results: Lab Results 06/04/18 00:37: Urine Color Yellow, Urine Appearance Cloudy, Urine pH 6.0, Ur Specific [place] 1.020, Urine Protein 30 H, Urine Glucose (UA) Negative, Urine Ketones Negative, Urine Blood Large H, Urine Nitrate Negative, Urine Bilirubin Negative, Urine Urobilinogen 0.2, Ur Leukocyte Esterase Large H, Urine RBC 10 - 15, Urine WBC 25 - 30, Ur Epithelial Cells 0 - 2, Urine Bacteria Small - Medication Orders Current Medication Orders: Discontinued Medications Ceftriaxone Sodium (Rocephin) 1 gm IM STAT STA; Protocol Stop: 06/04/18 01:11 Lidocaine HCl (Xylocaine 2% (Uro-Jet)) 1 ea TOP ONCE ONE Stop: 06/03/18 23:02 - PA / SENIOR FINANCIAL ACCOUNTANT / Resident Statement MD/DO has reviewed & agrees with the documentation as recorded. - Scribe Statement The provider has reviewed the documentation as recorded by the Scribe Arianna Redd All medical record entries made by the Scribe were at my direction and personally dictated by me. I have reviewed the chart and agree that the record accurately reflects my personal performance of the history, physical exam, medical decision making, and the department course for this patient. I have also personally directed, reviewed, and agree with the discharge instructions and disposition. Disposition/Present on Arrival - Present on Arrival Any Indicators Present on Arrival: No History of DVT/PE: No History of Uncontrolled Diabetes: Yes Urinary Catheter: No History of Decub. Ulcer: No History Surgical Site Infection Following: None - Disposition Have Diagnosis and Disposition been Completed?: Yes Diagnosis: Chacon catheter problem, UTI (urinary tract infection) Disposition: HOME/ ROUTINE Disposition Time: 00:54 Patient Plan: Discharge Patient Problems: Current Active Problems Problem Status Onset Chacon catheter problem Acute UTI (urinary tract infection) Acute Condition: IMPROVED Additional Instructions: -Discharge home with keflex, new chacon, follow up with your own pmd and Dr. Nance within 2 days, return to the ER for any new or worsening signs or symptoms. Prescriptions: Cephalexin [Keflex] 500 mg PO TID #21 capsule Referrals: Spenser Nance MD [Staff Provider] - Follow up with primary Rashad Brown MD [Staff Provider] - Follow up with primary Forms: [employer] (Icelandic), WORK NOTE
[2018-06-03] MEDS ORDERED: Lidocaine 2% Jelly (Uro-Jet) TOP ONE (23:01)
[2018-06-04 00:46] LABS: URINE BILIRUBIN NEGATIVE (NEGATIVE); URINE BLOOD LARGE (NEGATIVE); URINE GLUCOSE (UA) NEGATIVE (NEGATIVE); URINE LEUKOCYTE ESTERASE LARGE Leu/uL (NEGATIVE); URINE PROTEIN 30 mg/dL (<30 mg/dL); URINE UROBILINOGEN 0.2 E.U./dL (<1 E.U./dL)
[2018-06-04 01:00] LABS: URINE APPEARANCE CLOUDY (CLEAR); URINE COLOR YELLOW (YELLOW)
[2018-06-04 01:02] VITALS: PULSE 78; O2SAT 100
[2018-06-04 01:06] LABS: URINE BACTERIA SMALL (NEG); URINE EPITHELIAL CELLS 0 - 2 /hpf (0-5); URINE WBC 25 - 30 /hpf (0-6)
[2018-06-04] MEDS ORDERED: cefTRIAXone (Rocephin) 1 gm Inj IM STA (01:10)
[2018-06-04 03:37] VITALS: BP 128/72; RESP 16; TEMP 98.2
== END 2018-06-04 02:02 | disposition home or self-care (01) ==
LOC: ED 22:30
DX: T83.9XXA Unspecified complication of genitourinary prosthetic device, implant and graft, initial encounter (principal); N39.0 Urinary tract infection, site not specified; I48.91 Unspecified atrial fibrillation; Z79.01 Long term (current) use of anticoagulants; I10 Essential (primary) hypertension; I50.9 Heart failure, unspecified
CPT/HCPCS: 51702; 81001; 87086; 87181; 96372; 99284; J0696

== ENCOUNTER 2018-06-05 16:10 | Inpatient (IN) | payer MEDICARE ==
[2018-06-05 16:10] VITALS: PULSE 58
[2018-06-05 16:43] VITALS: BMI 58.2
[2018-06-05 17:50] LABS: URINE BILIRUBIN NEGATIVE (NEGATIVE); URINE BLOOD LARGE (NEGATIVE); URINE GLUCOSE (UA) NEGATIVE (NEGATIVE); URINE LEUKOCYTE ESTERASE MODERATE Leu/uL (NEGATIVE); URINE PROTEIN 100 mg/dL (<30 mg/dL); URINE UROBILINOGEN 0.2 E.U./dL (<1 E.U./dL)
[2018-06-05 17:57] LABS: URINE APPEARANCE TURBID (CLEAR); URINE COLOR YELLOW (YELLOW)
[2018-06-05 18:02] LABS: URINE RBC TNTC /hpf (0-2)
[2018-06-05 18:03] LABS: URINE BACTERIA MANY (NEG)
--- NOTE | 2018-06-05 18:45 | ED PDOC ---
Arrival/HPI - General Chief Complaint: Male Genitourinary Time Seen by Provider: 06/05/18 16:16 - History of Present Illness Narrative History of Present Illness (Text): 63 y/o M w/ h/o CVA, atrial fibrillation(on Eliquis), s/p failed suprapubic catheter insertion and urinary incontinence presenting to the ED for bleeding. Per patient's , the patient was noted to have rufus blood oozing from the uretheral meatus intermittently throughout the day. She denies hematuria, blood clots within the [place] bag or the urine or bleeding from other orfices of the body. Of note, the patient was recently seen in the ED for exchange of his Sevilla catheter due to long-standing Sevilla placement since April 2018(per Dr. Nance). Per the patient's , the patient was noted have a traumatic insertion of the Sevilla catheter on 06/05/18 and was prescribed Keflex, but developed diarrhea after 2 days. His mentions the patient has an appointment with Dr. Nance on 06/06/18, but was unable to wait until then. PCP: Dr. Nunez Specialist: Dr. Nance Time/Duration: Other (48 hours) Symptom Course: Worsening Severity Level: Moderate Context: Home Past Medical History - Provider Review Nursing Documentation Reviewed: Yes - Travel History Have you recently traveled outside [place] w/in the past 3 mons?: No - Past History Past History: No Previous - Infectious Disease Hx of Infectious Diseases: None - Tetanus Immunization Tetanus Immunization: Unknown - Cardiac Hx Cardiac Arrhythmia: Yes (A-FIB) - Pulmonary Hx Chronic Obstructive Pulmonary Disease (COPD): Yes - Neurological Hx Neurological Disorder: Yes - Renal Hx Renal Disorder: Yes - Endocrine/Metabolic Hx Endocrine Disorders: Yes - Integumentary Hx Dermatological Disorder: Yes (CELLULITIS TO LOWER EXTREMITY) - Musculoskeletal/Rheumatological Hx Arthritis: Yes - Gastrointestinal Hx Gastrointestinal Disorders: Yes Hx Constipation: Yes - Psychiatric Hx Depression: Yes Hx Substance Use: Yes - Surgical History Hx Gastric Bypass Surgery: Yes (Lap band) Hx Orthopedic Surgery: Yes - Anesthesia Hx Anesthesia: Yes Hx Anesthesia Reactions: No Hx Malignant Hyperthermia: No - Suicidal Assessment Feels Threatened In Home Enviroment: No Family/Social History - Physician Review Nursing Documentation Reviewed: Yes Family/Social History: Unknown Family HX Smoking Status: Never Smoked Hx Alcohol Use: Yes Hx Substance Use: Yes Hx Substance Use Treatment: No Allergies/Home Meds Allergies/Adverse Reactions: Allergies No Known Allergies Allergy (Verified 12/31/16 13:16) Home Medications: Home Meds Medication Instructions Recorded Confirmed Furosemide [Lasix] 80 mg PO BID 02/12/18 02/20/18 Linaclotide [Linzess] 1 cap PO DAILY 02/12/18 02/20/18 Atorvastatin [Lipitor] 40 mg PO HS 04/16/18 Multivitamin [Multivitamins] 1 each PO DAILY 04/16/18 Review of Systems - Review of Systems Systems not reviewed;Unavailable: Uncooperative Genitourinary Male: Hematuria, Other (Blood noted around uretheral meatus). absent: Dysuria, Frequency Physical Exam Vital Signs Reviewed: Yes Vital Signs Temp Pulse Resp BP Pulse Ox 06/05/18 16:23 98.1 F 61 19 129/89 97 Temperature: Afebrile Blood Pressure: Normal Pulse: Regular Respiratory Rate: Normal Appearance: Positive for: Non-Toxic, Uncomfortable, Other (Morbidly Obese) Mental Status: Positive for: Alert and Oriented X 3 - Systems Exam Head: Present: Atraumatic, Normocephalic Pupils: Present: PERRL Extroacular Muscles: Present: EOMI Mouth: Present: Moist Mucous Membranes Respiratory/Chest: Present: Clear to Auscultation, Good Air Exchange. No: Respiratory Distress Cardiovascular: Present: Regular Rate and Rhythm, Normal S1, S2. No: Murmurs Abdomen: Present: Normal Bowel Sounds. No: Tenderness, Distention, Peritoneal Signs Genitourinary Male: Present: Circumcised Penis, Other (Bleeding noted around uretheral meatus and scrotum) Upper Extremity: Present: Normal Inspection. No: Cyanosis, Edema Lower Extremity: Present: Normal Inspection. No: Edema Neurological: Present: GCS=15, Other (garbled speech) Skin: Present: Warm, Dry, Normal Color Psychiatric: Present: Alert, Oriented x 3, Agitated Medical Decision Making ED Course and Treatment: Impression 63y/o M w/ h/o CVA and urinary incontinence presenting with bleeding around Se[place] Catheter Plan --UA/Urine Culture --Sevilla exchange --Urology consult --Reassess & disposition Progress Note 06/05/18 19:08 Patient reassessed and deemed comfortable at this time. Spoke to Dr. Nance(urology)who states he will come to exchange the Sevilla catheter at the bedside and requests cart. Nurse notified and will obtain cart in advance. Discussed updated plan with patient's . Signout given to Dr. Lance who will resume the patient's care. - Lab Interpretations Lab Results: Lab Results 06/05/18 17:00: Urine Color Yellow, Urine Appearance Turbid, Urine pH 6.0, Ur Specific [place] 1.025, Urine Protein 100 H, Urine Glucose (UA) Negative, Urine Ketones Trace H, Urine Blood Large H, Urine Nitrate Positive H, Urine Bilirubin Negative, Urine Urobilinogen 0.2, Ur Leukocyte Esterase Moderate H, Urine RBC Tntc, Urine WBC 10 - 15, Urine Bacteria Many Disposition/Present on Arrival - Present on Arrival Any Indicators Present on Arrival: Yes History of DVT/PE: No History of Uncontrolled Diabetes: Yes Urinary Catheter: No History of Decub. Ulcer: No History Surgical Site Infection Following: None - Disposition Have Diagnosis and Disposition been Completed?: Yes Diagnosis: Penile bleeding Disposition Time: 18:00 Condition: FAIR Forms: [employer] (Kyrgyz)
--- NOTE | 2018-06-05 19:31 | ED PDOC ---
Physical Exam Vital Signs Reviewed: Yes Vital Signs Temp Pulse Resp BP Pulse Ox 06/05/18 19:13 84 18 116/66 100 06/05/18 16:23 98.1 F 61 19 129/89 97 Temperature: Afebrile Blood Pressure: Normal Pulse: Regular Respiratory Rate: Normal Appearance: Positive for: Well-Appearing, Non-Toxic, Comfortable Pain Distress: None Mental Status: Positive for: Alert and Oriented X 3 - Systems Exam Head: Present: Atraumatic, Normocephalic Pupils: Present: PERRL Extroacular Muscles: Present: EOMI Conjunctiva: Present: Normal Mouth: Present: Moist Mucous Membranes Neck: Present: Normal Range of Motion Respiratory/Chest: Present: Clear to Auscultation, Good Air Exchange. No: Respiratory Distress, Accessory Muscle Use Cardiovascular: Present: Regular Rate and Rhythm, Normal S1, S2. No: Murmurs Abdomen: No: Tenderness, Distention, Peritoneal Signs Genitourinary Male: Present: Circumcised Penis, Other (Bleeding noted around uretheral meatus and scrotum) Back: Present: Normal Inspection Upper Extremity: Present: Normal Inspection. No: Cyanosis, Edema Lower Extremity: Present: Normal Inspection. No: Edema Neurological: Present: GCS=15, CN II-XII Intact Skin: Present: Warm, Dry, Normal Color. No: Rashes Psychiatric: Present: Alert, Oriented x 3, Normal Insight, Normal Concentration Medical Decision Making ED Course and Treatment: 06/05/18 19:10 Case endorsed to me by Dr. Philippe for pending reevaluation and disposition. Patient is a 63 year old male, who presented to the Emergency Department earlier today complaining of bleeding from urethral meatus. Patient is currently resting in bed in no acute distress. Patient presents no new complaints. 06/05/18 20:21 EKG: Ordered, reviewed, and independently interpreted the EKG. Rate : 93 BPM Rhythm : A-fib Interpretation :Septal infarct. Non-specific ST/T wave changes. 06/05/18 21:[address] Brown who accepts patient to his service. Request Dr. Nance on consult. Patient was seen by Dr. Nance earlier in the emergency department, who advised that the patient remain in the hospital for further ongoing treatment. president ceo & founder was notified. - Lab Interpretations Lab Results: Lab Results 06/05/18 17:00: Urine Color Yellow, Urine Appearance Turbid, Urine pH 6.0, Ur Specific [place] 1.025, Urine Protein 100 H, Urine Glucose (UA) Negative, Urine Ketones Trace H, Urine Blood Large H, Urine Nitrate Positive H, Urine Bilirubin Negative, Urine Urobilinogen 0.2, Ur Leukocyte Esterase Moderate H, Urine RBC Tntc, Urine WBC 10 - 15, Urine Bacteria Many - EKG Interpretation Interpreted by ED Physician: Yes Type: 12 lead EKG - Scribe Statement The provider has reviewed the documentation as recorded by the Scribe Annmarie Garcias. All medical record entries made by the Elainaibe were at my direction and personally dictated by me. I have reviewed the chart and agree that the record accurately reflects my personal performance of the history, physical exam, medical decision making, and the department course for this patient. I have also personally directed, reviewed, and agree with the discharge instructions and disposition. Disposition/Present on Arrival - Present on Arrival Any Indicators Present on Arrival: No History of DVT/PE: No History of Uncontrolled Diabetes: Yes Urinary Catheter: No History of Decub. Ulcer: No History Surgical Site Infection Following: None - Disposition Have Diagnosis and Disposition been Completed?: Yes Diagnosis: UTI (urinary tract infection), Hematuria Disposition: HOSPITALIZED Disposition Time: 21:31 Patient Plan: Observation Patient Problems: Current Active Problems Problem Status Onset Hematuria Acute UTI (urinary tract infection) Acute Condition: STABLE Forms: [employer] (Thai)
[2018-06-05 20:36] LABS: HEMOGLOBIN 12.7 g/dL (14.0-18.0); MEAN CELL VOLUME 92.8 fl (80.0-105.0); MEAN CORPUSCULAR HEMOGLOBIN 31.4 pg (25.0-35.0); MEAN CORPUSCULAR HGB CONC 33.8 g/dl (31.0-37.0); MEAN PLATELET VOLUME 9.2 fl (7.0-11.0); RBC 4.05 10^6/uL (3.5-6.1); RED CELL DISTRIBUTION WIDTH 13.7 % (11.5-14.5); WHITE BLOOD COUNT 4.5 10^3/ul (4.5-11.0)
[2018-06-05 20:39] LABS: INR 1.75; PARTIAL THROMBOPLASTIN TIME 27.3 Seconds (25.1-36.5); PROTHROMBIN TIME 20.2 SECONDS (9.4-12.5)
[2018-06-05 20:43] LABS: ALB/GLOB RATIO 1.1 (1.1-1.8); ALBUMIN 3.4 g/dL (3.0-4.8); CALCIUM 8.6 mg/dL (8.4-10.5)
[2018-06-05] MEDS ORDERED: Cefepime (Maxipime) 1 g Inj IVPB ONE (21:29)
[2018-06-05] MEDS ORDERED: Cefepime IV 2 gm in NS 2 GM/100 ML BAG IVPB STA (21:32)
[2018-06-06] MEDS ORDERED: Albuterol-Ipratrop 3 mg / 0.5 (3 ml) UD IH PRN (00:36)
--- NOTE | 2018-06-06 05:53 | CP.PCM.HP ---
History of Present Illness - History of Present Illness History of Present Illness: HISTORY & PHYSICAL NOTE FOR DR. SCOUT Herrera D.O. PGY-1 CC: Hematuria 63 y/o M w/ h/o CVA, atrial fibrillation(on Eliquis), s/p failed suprapubic catheter insertion and urinary incontinence presenting to the ED for urethral bleeding. Per patient's , the patient was noted to have rufus blood oozing from the uretheral meatus intermittently throughout the day. She denies hematuria, blood clots within the [place] bag or the urine or bleeding from other orifices of the body. Of note, the patient was recently seen in the ED for exchange of his [place] catheter due to long-standing Chacon placement since April 2018(per Dr. Nance). Per the patient's , the patient was noted have a traumatic insertion of the Ch[place] catheter on 06/03/18 and was prescribed Keflex, but developed diarrhea after 2 days. His mentions the patient has an appointment with Dr. Nance on 06/06/18, but was unable to wait until then. Pt denies fevers, chills, headache, dizziness, chest pain, palpitations, nausea, vomiting. He endorses dysuria In ED: Dr. Nance had seen patient and replace chacon PMHx: asthma, morbid obesity, CHF, A-fib, HTN, renal insufficiency, and chronic lymphedema PSHx: Lap band, Left shoulder surgery Allergies: NKDA Social Hx: Former alcohol and substance abuse. Denies tobacco use Family Hx: Could not obtain from patient as he is non-verbal Medications: Reviewed, as per MAR Present on Admission - Present on Admission Any Indicators Present on Admission: No Review of Systems - Review of Systems Review of Systems: as per HPI Past Patient History - Infectious Disease Hx of Infectious Diseases: None - Tetanus Immunizations Tetanus Immunization: Unknown - Past Medical History & Family History Past Medical History?: Yes - Past Social History Smoking Status: Never Smoked - CARDIAC Hx Cardia Arrhythmia: Yes (A-FIB) Hx Circulatory Problems: Yes Hx Congestive Heart Failure: Yes Hx Hypercholesterolemia: Yes Hx Hypertension: Yes Hx Peripheral Edema: Yes Hx Peripheral Vascular Disease: Yes - PULMONARY Hx Chronic Obstructive Pulmonary Disease (COPD): Yes - NEUROLOGICAL Hx Neurological Disorder: Yes HX Cerebrovascular Accident: Yes (01/2018) - HEENT Other/Comment: Aphasia - RENAL Hx Chronic Kidney Disease: Yes - ENDOCRINE/METABOLIC Hx Endocrine Disorders: Yes Hx Hypothyroidism: Yes - INTEGUMENTARY Hx Dermatological Problems: Yes (CELLULITIS TO LOWER EXTREMITY) - MUSCULOSKELETAL/RHEUMATOLOGICAL Hx Arthritis: Yes Hx Falls: Yes Hx Osteoarthritis: Yes - GASTROINTESTINAL Hx Gastrointestinal Disorders: Yes - GENITOURINARY/GYNECOLOGICAL Hx Genitourinary Disorders: Yes Other/Comment: HX: URINARY RETENTION ->CHACON CATH. - PSYCHIATRIC Hx Depression: Yes - SURGICAL HISTORY Hx Gastric Bypass Surgery: Yes (Lap band) Hx Orthopedic Surgery: Yes - ANESTHESIA Hx Anesthesia: Yes Hx Anesthesia Reactions: No Hx Malignant Hyperthermia: No Meds Allergies/Adverse Reactions: Allergies Allergy/AdvReac Type Severity Reaction Status Date / Time No Known Allergies Allergy Verified 12/31/16 13:16 Physical Exam - Constitutional Appears: Well, Non-toxic, No Acute Distress - Head Exam Head Exam: NORMAL INSPECTION, NORMOCEPHALIC - Eye Exam Eye Exam: EOMI, Normal appearance - ENT Exam ENT Exam: Mucous Membranes Moist, Normal Exam - Neck Exam Neck exam: Positive for: Normal Inspection - Respiratory Exam Respiratory Exam: Clear to Auscultation Bilateral, NORMAL BREATHING PATTERN - Cardiovascular Exam Cardiovascular Exam: REGULAR RHYTHM, +S1, +S2 - GI/Abdominal Exam GI & Abdominal Exam: Soft. absent: Tenderness - Exam Additional comments: Dried blood noted around urethral meatus. No active bleeding noted chacon in place with chacon bag. No external drainage noted - Extremities Exam Extremities exam: Positive for: normal inspection. Negative for: calf tenderness - Back Exam Back exam: NORMAL INSPECTION - Neurological Exam Neurological exam: CN II-XII Intact - Psychiatric Exam Psychiatric exam: Normal Affect, Normal Mood - Skin Skin Exam: Dry, Warm Results - Vital Signs Recent Vital Signs: Last Vital Signs Temp 98.1 F 06/05/18 16:23 Pulse 92 H 06/05/18 22:13 Resp 19 06/05/18 23:21 BP 155/75 H 06/05/18 22:13 Pulse Ox 98 06/05/18 22:13 - Labs Result Diagrams: 06/05/18 20:20 06/05/18 20:20 Labs: Laboratory Results - last 24 hr 06/05/18 06/05/18 06/05/18 17:00 20:20 20:20 WBC RBC Hgb Hct MCV MCH MCHC RDW Plt Count MPV PT 20.2 H INR 1.75 APTT 27.3 Sodium 139 Potassium 3.9 Chloride 105 Carbon Dioxide 24 Anion Gap 14 BUN 23 H Creatinine 1.7 H Est GFR ( Amer) 50 Est GFR (Non-Af Amer) 41 Random Glucose 106 Calcium 8.6 Total Bilirubin 1.8 H AST 29 ALT 25 Alkaline Phosphatase 79 Total Protein 6.5 Albumin 3.4 Globulin 3.1 Albumin/Globulin Ratio 1.1 Urine Color Yellow Urine Appearance Turbid Urine pH 6.0 Ur Specific [place] 1.025 Urine Protein 100 H Urine Glucose (UA) Negative Urine Ketones Trace H Urine Blood Large H Urine Nitrate Positive H Urine Bilirubin Negative Urine Urobilinogen 0.2 Ur Leukocyte Esterase Moderate H Urine RBC Tntc Urine WBC 10 - 15 Urine Bacteria Many 06/05/18 20:20 WBC 4.5 D RBC 4.05 Hgb 12.7 L Hct 37.6 L MCV 92.8 MCH 31.4 MCHC 33.8 RDW 13.7 Plt Count 117 L MPV 9.2 PT INR APTT Sodium Potassium Chloride Carbon Dioxide Anion Gap BUN Creatinine Est GFR ( Amer) Est GFR (Non-Af Amer) Random Glucose Calcium Total Bilirubin AST ALT Alkaline Phosphatase Total Protein Albumin Globulin Albumin/Globulin Ratio Urine Color Urine Appearance Urine pH Ur Specific [place] Urine Protein Urine Glucose (UA) Urine Ketones Urine Blood Urine Nitrate Urine Bilirubin Urine Urobilinogen Ur Leukocyte Esterase Urine RBC Urine WBC Urine Bacteria Assessment & Plan - Assessment and Plan (Free Text) Assessment: 63 y/o M with PMH CVA, atrial fibrillation(on Eliquis), s/p failed suprapubic catheter insertion and urinary incontinence presenting to the ED for urethral bleeding Plan: Hold eliquis Start IV Lasix 40mg IV q12 Continue cefepime Repeat am labs Resume home meds Patient discussed with attending physician, Dr. Brown
[2018-06-06] MEDS: Potassium Chloride 20 mEq ER Tab PO SCH (09:59)
[2018-06-06] MEDS: Multivitamin Therapeutic Tab PO SCH (09:59)
[2018-06-06] MEDS: Levothyroxine 25 MCG TAB PO SCH (10:00)
[2018-06-06] MEDS ORDERED: POTASSIUM CHLORIDE 20 MEQ PO SCH (10:00)
[2018-06-06] MEDS ORDERED: LINACLOTIDE PO SCH (10:00)
[2018-06-06] MEDS: Cholecalciferol 1,000 INTLU TAB PO SCH (10:01)
--- NOTE | 2018-06-06 10:11 | CARD ---
APPROVED REPORT Date of service: 06/05/2018 EKG Measurement Heart [id number] <Conclusion> Atrial fibrillation Low voltage QRS limb leads PRWP Septal infarct, age undetermined NSSTW changes
[2018-06-06 10:23] LABS: EOS % 0.6 % (1.5-5.0); GRAN # 3.68 (1.4-6.5); GRAN % 75.4 % (50.0-68.0); HEMOGLOBIN 12.2 g/dL (14.0-18.0); LYMPH # 0.7 (1.2-3.4); LYMPH % 15.2 % (22.0-35.0); MEAN CELL VOLUME 93.1 fl (80.0-105.0); MEAN CORPUSCULAR HEMOGLOBIN 31.3 pg (25.0-35.0); MEAN CORPUSCULAR HGB CONC 33.6 g/dl (31.0-37.0); MEAN PLATELET VOLUME 8.8 fl (7.0-11.0); MONO # 0.4 (0.1-0.6); MONO % 8.8 % (1.0-6.0); RBC 3.9 10^6/uL (3.5-6.1); RED CELL DISTRIBUTION WIDTH 13.8 % (11.5-14.5); WHITE BLOOD COUNT 4.9 10^3/ul (4.5-11.0)
[2018-06-06 10:34] LABS: INR 1.49; PARTIAL THROMBOPLASTIN TIME 25.5 Seconds (25.1-36.5); PROTHROMBIN TIME 17.3 SECONDS (9.4-12.5)
[2018-06-06 10:36] LABS: ALBUMIN 3.1 g/dL (3.0-4.8); BILIRUBIN,DIRECT 0.3 mg/dL (0.0-0.4); CALCIUM 8.6 mg/dL (8.4-10.5)
[2018-06-06 10:51] LABS: FREE T4 1.41 ng/dL (0.78-2.19); T4 4.4 ug/dL (5.5-11.0)
--- NOTE | 2018-06-06 11:09 | CP.PCM.CON ---
<Emeka Hendricks - Last Filed: 06/06/18 11:06> History of Present Illness - History of Present Illness History of Present Illness: Neurology consult called for stroke prevention in light of bleeding diathesis in patient with known afib and prior cva. 63 y/o M w/ h/o CVA, atrial fibrillation(on Eliquis), s/p failed suprapubic catheter insertion and urinary incontinence presenting to the ED for urethral bleeding. Per patient's , the patient was noted to have rufus blood oozing f rom the uretheral meatus intermittently throughout the day. She denies hematuria, blood clots within the [place] bag or the urine or bleeding from other orifices of the body. Of note, the patient was recently seen in the ED for exchange of his Chacon catheter due to long-standing Chacon placement since April 2018(per Dr. Nance). Per the patient's , the patient was noted have a traumatic insertion of the Chacon catheter on 06/03/18 and was prescribed Keflex, but developed diarrhea after 2 days. His mentions the patient has an appointment with Dr. Nance on 06/06/18, but was unable to wait until then. Pt denies fevers, chills, headache, dizziness, chest pain, palpitations, nausea, vomiting. He endorses dysuria In ED: Dr. Nance had seen patient and replace chacon PMHx: asthma, morbid obesity, CHF, A-fib, HTN, renal insufficiency, and chronic lymphedema PSHx: Lap band, Left shoulder surgery Allergies: NKDA Social Hx: Former alcohol and substance abuse. Denies tobacco use Family Hx: Could not obtain from patient as he is non-verbal Medications: Reviewed, as per MAR Past Patient History - Infectious Disease Hx of Infectious Diseases: None - Tetanus Immunizations Tetanus Immunization: Unknown - Past Medical History & Family History Past Medical History?: Yes - Past Social History Smoking Status: Never Smoked - CARDIAC Hx Cardia Arrhythmia: Yes (A-FIB) Hx Circulatory Problems: Yes Hx Congestive Heart Failure: Yes Hx Hypercholesterolemia: Yes Hx Hypertension: Yes Hx Peripheral Edema: Yes Hx Peripheral Vascular Disease: Yes - PULMONARY Hx Chronic Obstructive Pulmonary Disease (COPD): Yes - NEUROLOGICAL Hx Neurological Disorder: Yes HX Cerebrovascular Accident: Yes (01/2018) - HEENT Other/Comment: Aphasia - RENAL Hx Chronic Kidney Disease: Yes - ENDOCRINE/METABOLIC Hx Endocrine Disorders: Yes Hx Hypothyroidism: Yes - INTEGUMENTARY Hx Dermatological Problems: Yes (CELLULITIS TO LOWER EXTREMITY) - MUSCULOSKELETAL/RHEUMATOLOGICAL Hx Arthritis: Yes Hx Falls: Yes Hx Osteoarthritis: Yes - GASTROINTESTINAL Hx Gastrointestinal Disorders: Yes - GENITOURINARY/GYNECOLOGICAL Hx Genitourinary Disorders: Yes Other/Comment: HX: URINARY RETENTION ->CHACON CATH. - PSYCHIATRIC Hx Depression: Yes - SURGICAL HISTORY Hx Gastric Bypass Surgery: Yes (Lap band) Hx Orthopedic Surgery: Yes - ANESTHESIA Hx Anesthesia: Yes Hx Anesthesia Reactions: No Hx Malignant Hyperthermia: No Meds Allergies/Adverse Reactions: Allergies Allergy/AdvReac Type Severity Reaction Status Date / Time No Known Allergies Allergy Verified 12/31/16 13:16 - Medications Medications: Current Medications Acetaminophen (Tylenol 325mg Tab) 650 mg PO Q4H PRN PRN Reason: pain and fever Acetaminophen (Tylenol 325mg Tab) 650 mg PO Q6 PRN PRN Reason: TEMP>=99.5F Acetaminophen (Tylenol 650 Mg Supp) 650 mg RC Q6H PRN PRN Reason: TEMP>=99.5F Albuterol/Ipratropium (Duoneb 3 Mg/0.5 Mg (3 Ml) Ud) 3 ml IH Q2H PRN PRN Reason: Shortness of Breath Aspirin (Aspirin Chewable) 81 mg PO DAILY [facility] Last Admin: 06/06/18 09:56 Dose: Not Given Atorvastatin Calcium (Lipitor) 40 mg PO [facility] Cholecalciferol (Vitamin D) 2,000 intlu PO DAILY [facility] Last Admin: 06/06/18 10:01 Dose: 2,000 intlu Furosemide (Lasix) 40 mg IVP Q12 [facility] Last Admin: 06/06/18 09:58 Dose: 40 mg Levalbuterol HCl (Xopenex) 0.63 mg IH [id number] [facility] Levothyroxine Sodium (Synthroid) 25 mcg PO DAILY [facility] Last Admin: 06/06/18 10:00 Dose: 25 mcg Losartan Potassium (Cozaar) 100 mg PO DAILY [facility] Last Admin: 06/06/18 10:00 Dose: 100 mg Metoprolol Tartrate (Lopressor) 50 mg PO BID [facility] Last Admin: 06/06/18 09:59 Dose: 50 mg Multivitamins (Thera Tab) 1 tab PO DAILY [facility] Last Admin: 06/06/18 09:59 Dose: 1 tab Ondansetron HCl (Zofran Inj) 4 mg IVP Q4H PRN PRN Reason: Nausea/Vomiting Pantoprazole Sodium (Protonix Ec Tab) 40 mg PO ACB [facility] Potassium Chloride (K-Dur 20 Meq Er Tab) 20 meq PO DAILY [facility] Last Admin: 06/06/18 09:59 Dose: 20 meq Tamsulosin HCl (Flomax) 0.4 mg PO DAILY [facility] Last Admin: 06/06/18 10:00 Dose: 0.4 mg Results - Vital Signs Recent Vital Signs: Last Vital Signs Temp 97.8 F 06/06/18 06:00 Pulse 102 H 06/06/18 09:59 Resp 18 06/06/18 06:00 BP 143/92 H 06/06/18 09:59 Pulse Ox 97 06/06/18 06:00 - Labs Result Diagrams: 06/06/18 10:15 06/06/18 10:15 Labs: Laboratory Results - last 24 hr 06/05/18 06/05/18 06/05/18 17:00 20:20 20:20 WBC RBC Hgb Hct MCV MCH MCHC RDW Plt Count MPV Gran % Lymph % (Auto) Wallace % (Auto) Eos % (Auto) Baso % (Auto) Gran # Lymph # (Auto) Wallace # (Auto) Eos # (Auto) Baso # (Auto) PT 20.2 H INR 1.75 APTT 27.3 Sodium 139 Potassium 3.9 Chloride 105 Carbon Dioxide 24 Anion Gap 14 BUN 23 H Creatinine 1.7 H Est GFR ( Amer) 50 Est GFR (Non-Af Amer) 41 Random Glucose 106 Calcium 8.6 Phosphorus Magnesium Total Bilirubin 1.8 H Direct Bilirubin AST 29 ALT 25 Alkaline Phosphatase 79 Total Protein 6.5 Albumin 3.4 Globulin 3.1 Albumin/Globulin Ratio 1.1 Prostate Specific Ag Free T4 Thyroxine (T4) TSH 3rd Generation Urine Color Yellow Urine Appearance Turbid Urine pH 6.0 Ur Specific Lambert 1.025 Urine Protein 100 H Urine Glucose (UA) Negative Urine Ketones Trace H Urine Blood Large H Urine Nitrate Positive H Urine Bilirubin Negative Urine Urobilinogen 0.2 Ur Leukocyte Esterase Moderate H Urine RBC Tntc Urine WBC 10 - 15 Urine Bacteria Many 06/05/18 06/06/18 06/06/18 20:20 10:15 10:15 WBC 4.5 D 4.9 RBC 4.05 3.90 Hgb 12.7 L 12.2 L Hct 37.6 L 36.3 L MCV 92.8 93.1 MCH 31.4 31.3 MCHC 33.8 33.6 RDW 13.7 13.8 Plt Count 117 L 105 L MPV 9.2 8.8 Gran % 75.4 H Lymph % (Auto) 15.2 L Wallace % (Auto) 8.8 H Eos % (Auto) 0.6 L Baso % (Auto) 0.0 Gran # 3.68 Lymph # (Auto) 0.7 L Wallace # (Auto) 0.4 Eos # (Auto) 0.0 Baso # (Auto) 0.00 PT INR APTT Sodium 140 Potassium 3.6 Chloride 108 H Carbon Dioxide 25 Anion Gap 11 BUN 21 Creatinine 1.6 H Est GFR ( Amer) 53 Est GFR (Non-Af Amer) 44 Random Glucose 111 H Calcium 8.6 Phosphorus 3.0 Magnesium 1.9 Total Bilirubin 1.5 H Direct Bilirubin 0.3 AST 23 ALT 23 Alkaline Phosphatase 71 Total Protein 6.3 Albumin 3.1 Globulin 3.2 Albumin/Globulin Ratio 1.0 L Prostate Specific Ag Free T4 Thyroxine (T4) TSH 3rd Generation Urine Color Urine Appearance Urine pH Ur Specific Lambert Urine Protein Urine Glucose (UA) Urine Ketones Urine Blood Urine Nitrate Urine Bilirubin Urine Urobilinogen Ur Leukocyte Esterase Urine RBC Urine WBC Urine Bacteria 06/06/18 06/06/18 10:15 10:15 WBC RBC Hgb Hct MCV MCH MCHC RDW Plt Count MPV Gran % Lymph % (Auto) Wallace % (Auto) Eos % (Auto) Baso % (Auto) Gran # Lymph # (Auto) Wallace # (Auto) Eos # (Auto) Baso # (Auto) PT 17.3 H INR 1.49 APTT 25.5 Sodium Potassium Chloride Carbon Dioxide Anion Gap BUN Creatinine Est GFR ( Amer) Est GFR (Non-Af Amer) Random Glucose Calcium Phosphorus Magnesium Total Bilirubin Direct Bilirubin AST ALT Alkaline Phosphatase Total Protein Albumin Globulin Albumin/Globulin Ratio Prostate Specific Ag 1.0 Free T4 1.41 Thyroxine (T4) 4.4 L TSH 3rd Generation 1.55 Urine Color Urine Appearance Urine pH Ur Specific Lambert Urine Protein Urine Glucose (UA) Urine Ketones Urine Blood Urine Nitrate Urine Bilirubin Urine Urobilinogen Ur Leukocyte Esterase Urine RBC Urine WBC Urine Bacteria <Charles Knowlesoja - Last Filed: 06/06/18 14:49> Meds - Medications Medications: Current Medications Acetaminophen (Tylenol 325mg Tab) 650 mg PO Q4H PRN PRN Reason: pain and fever Acetaminophen (Tylenol 325mg Tab) 650 mg PO Q6 PRN PRN Reason: TEMP>=99.5F Acetaminophen (Tylenol 650 Mg Supp) 650 mg RC Q6H PRN PRN Reason: TEMP>=99.5F Albuterol/Ipratropium (Duoneb 3 Mg/0.5 Mg (3 Ml) Ud) 3 ml IH Q2H PRN PRN Reason: Shortness of Breath Aspirin (Aspirin Chewable) 81 mg PO DAILY [facility] Last Admin: 06/06/18 09:56 Dose: Not Given Atorvastatin Calcium (Lipitor) 40 mg PO HS [facility] Cholecalciferol (Vitamin D) 2,000 intlu PO DAILY [facility] Last Admin: 06/06/18 10:01 Dose: 2,000 intlu Furosemide (Lasix) 40 mg IVP Q12 [facility] Last Admin: 06/06/18 09:58 Dose: 40 mg Levalbuterol HCl (Xopenex) 0.63 mg IH [id number] [facility] Last Admin: 06/06/18 13:41 Dose: 0.63 mg Levothyroxine Sodium (Synthroid) 25 mcg PO DAILY [facility] Last Admin: 06/06/18 10:00 Dose: 25 mcg Losartan Potassium (Cozaar) 100 mg PO DAILY [facility] Last Admin: 06/06/18 10:00 Dose: 100 mg Metoprolol Tartrate (Lopressor) 50 mg PO BID [facility] Last Admin: 06/06/18 09:59 Dose: 50 mg Multivitamins (Thera Tab) 1 tab PO DAILY [facility] Last Admin: 06/06/18 09:59 Dose: 1 tab Ondansetron HCl (Zofran Inj) 4 mg IVP Q4H PRN PRN Reason: Nausea/Vomiting Pantoprazole Sodium (Protonix Ec Tab) 40 mg PO ACB [facility] Potassium Chloride (K-Dur 20 Meq Er Tab) 20 meq PO DAILY [facility] Last Admin: 06/06/18 09:59 Dose: 20 meq Tamsulosin HCl (Flomax) 0.4 mg PO DAILY [facility] Last Admin: 06/06/18 10:00 Dose: 0.4 mg Results - Vital Signs Recent Vital Signs: Last Vital Signs Temp 97.8 F 06/06/18 06:00 Pulse 102 H 06/06/18 09:59 Resp 18 06/06/18 06:00 BP 143/92 H 06/06/18 09:59 Pulse Ox 97 06/06/18 06:00 - Labs Result Diagrams: 06/06/18 10:15 06/06/18 10:15 Labs: Laboratory Results - last 24 hr 06/05/18 06/05/18 06/05/18 17:00 20:20 20:20 WBC RBC Hgb Hct MCV MCH MCHC RDW Plt Count Manual Plt Count MPV Gran % Lymph % (Auto) Wallace % (Auto) Eos % (Auto) Baso % (Auto) Gran # Lymph # (Auto) Wallace # (Auto) Eos # (Auto) Baso # (Auto) PT 20.2 H INR 1.75 APTT 27.3 Sodium 139 Potassium 3.9 Chloride 105 Carbon Dioxide 24 Anion Gap 14 BUN 23 H Creatinine 1.7 H Est GFR ( Amer) 50 Est GFR (Non-Af Amer) 41 Random Glucose 106 Calcium 8.6 Phosphorus Magnesium Total Bilirubin 1.8 H Direct Bilirubin AST 29 ALT 25 Alkaline Phosphatase 79 Total Protein 6.5 Albumin 3.4 Globulin 3.1 Albumin/Globulin Ratio 1.1 Prostate Specific Ag Free T4 Thyroxine (T4) TSH 3rd Generation Urine Color Yellow Urine Appearance Turbid Urine pH 6.0 Ur Specific Lambert 1.025 Urine Protein 100 H Urine Glucose (UA) Negative Urine Ketones Trace H Urine Blood Large H Urine Nitrate Positive H Urine Bilirubin Negative Urine Urobilinogen 0.2 Ur Leukocyte Esterase Moderate H Urine RBC Tntc Urine WBC 10 - 15 Urine Bacteria Many 06/05/18 06/06/18 06/06/18 20:20 10:15 10:15 WBC 4.5 D 4.9 RBC 4.05 3.90 Hgb 12.7 L 12.2 L Hct 37.6 L 36.3 L MCV 92.8 93.1 MCH 31.4 31.3 MCHC 33.8 33.6 RDW 13.7 13.8 Plt Count 117 L 105 L Manual Plt Count 117 L MPV 9.2 8.8 Gran % 75.4 H Lymph % (Auto) 15.2 L Wallace % (Auto) 8.8 H Eos % (Auto) 0.6 L Baso % (Auto) 0.0 Gran # 3.68 Lymph # (Auto) 0.7 L Wallace # (Auto) 0.4 Eos # (Auto) 0.0 Baso # (Auto) 0.00 PT INR APTT Sodium 140 Potassium 3.6 Chloride 108 H Carbon Dioxide 25 Anion Gap 11 BUN 21 Creatinine 1.6 H Est GFR ( Amer) 53 Est GFR (Non-Af Amer) 44 Random Glucose 111 H Calcium 8.6 Phosphorus 3.0 Magnesium 1.9 Total Bilirubin 1.5 H Direct Bilirubin 0.3 AST 23 ALT 23 Alkaline Phosphatase 71 Total Protein 6.3 Albumin 3.1 Globulin 3.2 Albumin/Globulin Ratio 1.0 L Prostate Specific Ag Free T4 Thyroxine (T4) TSH 3rd Generation Urine Color Urine Appearance Urine pH Ur Specific Lambert Urine Protein Urine Glucose (UA) Urine Ketones Urine Blood Urine Nitrate Urine Bilirubin Urine Urobilinogen Ur Leukocyte Esterase Urine RBC Urine WBC Urine Bacteria 06/06/18 06/06/18 10:15 10:15 WBC RBC Hgb Hct MCV MCH MCHC RDW Plt Count Manual Plt Count MPV Gran % Lymph % (Auto) Wallace % (Auto) Eos % (Auto) Baso % (Auto) Gran # Lymph # (Auto) Wallace # (Auto) Eos # (Auto) Baso # (Auto) PT 17.3 H INR 1.49 APTT 25.5 Sodium Potassium Chloride Carbon Dioxide Anion Gap BUN Creatinine Est GFR ( Amer) Est GFR (Non-Af Amer) Random Glucose Calcium Phosphorus Magnesium Total Bilirubin Direct Bilirubin AST ALT Alkaline Phosphatase Total Protein Albumin Globulin Albumin/Globulin Ratio Prostate Specific Ag 1.0 Free T4 1.41 Thyroxine (T4) 4.4 L TSH 3rd Generation 1.55 Urine Color Urine Appearance Urine pH Ur Specific Lambert Urine Protein Urine Glucose (UA) Urine Ketones Urine Blood Urine Nitrate Urine Bilirubin Urine Urobilinogen Ur Leukocyte Esterase Urine RBC Urine WBC Urine Bacteria
[2018-06-06] MEDS: Levalbuterol 0.63 MG/3 ML Inhal Soln UD IH SCH ×2 (13:41→20:21)
--- NOTE | 2018-06-06 14:21 | CON ---
DATE: 06/06/2018 HISTORY: The patient is a 63-year-old male who presents with hematuria. PAST MEDICAL HISTORY: Includes chronic atrial fibrillation, in which the patient has been treated with anticoagulation. His past medical history is through the chart. He has documented iremdlza-[id number] pulmonary hypertension. No previous myocardial infarction noted. The patient denies chest pain, denies shortness of breath. SOCIAL HISTORY: The patient denies smoking in the past. REVIEW OF SYSTEMS: The 14-point review of systems were reviewed in detail. The patient is unreliable, but he denies chest pain, denies shortness of breath. PHYSICAL EXAMINATION: VITAL SIGNS: Blood pressure is 143/92, the heart rate is in the 90s. NECK: Negative JVD. LUNGS: Decreased breath sounds. HEART: Reveal S1, S2. EXTREMITIES: Marked chronic edema in the lower extremities. DATA: EKG shows septal Qs consistent with an old anterior wall MS. His laboratories revealed hemoglobin of 12.2. Chemistries: BUN and creatinine are 11 and 1.6. IMPRESSION: 1. Hematuria. 2. Chronic atrial fibrillation, treated with anticoagulation. 3. Qmseuckr-bn-rmcwdn pulmonary hypertension. 4. Chronic pedal edema. 5. Urinary tract infection. 6. Hypertension. 7. No acute dyspnea. Given these findings, the patient is at increased from moderate to high risk for any anesthesia given his pulmonary hypertension. There is no evidence for acute coronary syndromes, no acute CHF at this time. However, his overall cardiopulmonary situation would make him a [id number] risk. Oscar Andres MD
--- NOTE | 2018-06-06 16:04 | HP ---
DATE OF EXAM: 06/06/2015 HISTORY OF PRESENT ILLNESS: The patient is a 63-year-old morbidly obese male who was seen in the office yesterday complaining of bleeding around the Sevilla catheter site. The patient was seen in the emergency room few days ago, had a Sevilla catheter change and the patient was discharged, but the patient came to the office accompanied by his complaining of leakage around Sevilla catheter. According to the ER physician evaluation, the patient has recently failed suprapubic catheter insertion for urinary incontinence. Presented to the emergency room complaining of bleeding coming from the Sevilla site and from the urethral meatus. The patient's has contacted Dr. Nance and the patient's was advised to bring the patient to the emergency room. CODE STATUS: Full code. LIVING WILL AND ADVANCE DIRECTIVE: None. ALLERGIES: None. Height is 5 feet 5 inches. Weight is 350. BMI is 58.2. HOME MEDICATIONS: Tylenol p.r.n., Eliquis 5 mg twice a day, aspirin 81, Lipitor 40 daily, Keflex 500 three times a day, vitamin D3, Lasix 80 twice a day, Synthroid 25, Linzess, Cozaar 100 daily, Lopressor 50 b.i.d., multivitamin, Protonix, MiraLax, K-Dur 20 mEq daily, Flomax 0.4 mg daily. SOCIAL HISTORY: Positive for substance abuse. Positive for alcohol use in the past. Positive for smoking. OCCUPATIONAL HISTORY: Disabled. FAMILY HISTORY: Hypertension, heart problems. PAST MEDICAL/SURGICAL HISTORY: Significant for history of very severe and poor compliance, history of noncompliance, history of morbid obesity, history of acute cortical infarcts of the left posterior frontal lobe and precentral gyrus involving the speech area, history of right hemiparesis secondary to the left posterior frontal lobe infarct with hemiplegia, dysarthria, and expressive aphasia, history of atrial fibrillation, history of cardiomyopathy, history of bilateral lower extremity lymphedema, history of super morbid obesity, history of prostatic hypertrophy, history of constipation, history of gastric bypass, history of oropharyngeal dysphagia, history of hypertension, history of atrial fibrillation, history of prediabetes, history of hypothyroidism, history of Guillain-[place] syndrome, history of congestive heart failure, history of chronic constipation, history of gastric bypass surgery, history of bilateral lower extremity venous stasis ulceration, cellulitis, lymphedema, history of severe gait dysfunction, history of right hemiparesis, history of expressive aphasia, dysarthria, history of cholelithiasis, gallbladder sludge, history of cystitis, history of degenerative joint disease of the lumbar spine, history of inguinal adenopathy, history of questionable cystitis, history of prediabetes, history of urinary retention, history of chronic constipation, history of questionable possible Guillain-[place] syndrome, history of gait dysfunction, history of severe pulmonary hypertension with right ventricular systolic pressure of 60 mmHg, history of right ventricular dysfunction with decreased right ventricular function, history of moderate tricuspid regurgitation and pulmonary hypertension, history of super morbid obesity, history of right-sided congestive heart failure and diastolic dysfunction with dryirccu-hq-rugvpx tricuspid regurgitation and severe pulmonary hypertension, history of basal ganglia and pontine infarct, history of hyperlipidemia, history of prostatic hypertrophy, history of bilateral lower extremity cellulitis, history of atrial fibrillation, history of degenerative joint disease of the spine. The patient was seen in the emergency room. The patient was again seen later on. The patient is seen lying in the bed. PHYSICAL EXAMINATION: VITAL SIGNS: T-max 98.1, heart rate 92, 84, 64, 105 atrial fibrillation, blood pressure 143/92, 155/75, respiration 18, O2 sat 97-98%. In addition, the patient's is also reporting that the patient has been screaming, yelling and has not been cooperative. HEENT: Head: Normocephalic, atraumatic. HEENT examination shows pinkish pale conjunctivae. Anicteric sclerae. No oropharyngeal lesion. NECK: No neck rigidity. CHEST: Kyphosis. LUNGS: Shows positive crackles. Decreased breath sounds. Positive rhonchi, bilateral upper lung saini. CARDIOVASCULAR: S1 and S2, irregular rhythm, low positive systolic murmur, left second intercostal space, right second intercostal space, left sternal border. ABDOMEN: Morbidly obese with healed surgical scar of gastric bypass. GENITALIA: Male. Positive Sevilla catheter. EXTREMITIES: Shows chronic lymphedema of the bilateral lower extremity. MUSCULOSKELETAL: Shows a body mass index of 58. Gait examination is assisted with cane. NEUROLOGICAL: The patient is alert, awake, responsive, dysarthric, agitated and at times starts screaming and making loud noises. DIAGNOSTICS: CBC shows a hemoglobin and hematocrit of 12.7 and 37.6, 12.2 and 36.3, platelets 117,000. Granulocytes 75%. PT is 20.2, INR 1.7 which is not that elevated. Chemistry shows a BUN of 23, creatinine 1.7, urine 100 protein, trace ketone, large blood, positive nitrite, moderate leukocytes, bacteria many. EKG done in the emergency room shows atrial fibrillation. The patient was seen in the emergency room by Dr. Alexis. The patient was then later on evaluated by the diagnostic medical sonographer and then the patient was advised to be admitted. The patient was also seen in the emergency room by the Urology, Dr. Nance who has advised the patient to be admitted for further urological intervention. IMPRESSION: 1. Questionable gross hematuria secondary to urethral bleeding. 2. Urinary incontinence. 3. Status post failed suprapubic catheter and insertion. 4. Eliquis dependent atrial fibrillation. 5. History of cortical cerebral infarct with expressive aphasia, dysarthria and right hemiparesis. 6. Hypertension. 7. Atrial fibrillation. 8. Morbid obesity. 9. Normocytic anemia. 10. Mild thrombocytopenia. 11. Acute kidney injury with underlying chronic kidney disease. 12. Voiding dysfunction with chronic intermittent Sevilla and suprapubic catheter placement. 13. Proteinuria, ketonuria, microscopic hematuria, pyuria, bacteriuria. 14. Morbid obesity. 15. Bilateral lower extremity lymphedema with venous stasis ulceration and cellulitis. 16. Questionable behavioral disorder. 17. Hyperlipidemia. 18. Hypovitaminosis D. 19. Congestive heart failure. 20. Hypothyroidism. 21. History of constipation. 22. History of hypertension. 23. Hypokalemia. 24. Prostatic hypertrophy. As mentioned above, the patient was seen in the emergency room by Dr. Nance who has advised the patient to be admitted for further urological intervention and management of hematuria and urinary catheter management. At present, the patient has been ordered repeat labs. Urology consultation has been requested. Cardiology, Neurology, Podiatry and Psychiatry evaluation is also requested. The patient's case referred to [facility]. TCU evaluation. CURRENT MEDICATIONS: Eliquis is held at this time, but the patient has not taken Eliquis yesterday as per the information provided. The patient was given Ativan 2 mg IV, Cozaar 100 mg daily, the patient has been started on Flomax 0.4 mg daily, K-Dur 20 mEq daily, Lasix 40 IV every 12, Lipitor 40 mg daily, Lopressor 50 mg twice a day. The patient received a dose of cefepime 2 g IV in the ER, Protonix 40 daily. The patient has been resumed on Synthroid 25 mcg daily, multivitamin, Tylenol, vitamin D3, Xopenex, Zofran, incentive spirometry, oxygen has been ordered. The patient has been ordered out of bed to chair, physical therapy, ambulation therapy, occupational therapy, speech therapy all ordered. The patient's overall prognosis is guarded to poor which has been explained to the patient's , Chance at length. The patient's overall prognosis is guarded to poor secondary to advanced multiple complicated medical problems and multiple and recent decompensation, which makes the patient at decompensated state. At present, the patient will be admitted for further urological intervention with evaluation by Urology, Cardiology, Podiatry, Psychiatry, Neurology, etc. Dictated and electronically signed, not read. Rashad Brown MD
[2018-06-06] MEDS: Oxycodone/Acetaminophen 5/325 mg Tab PO PRN ×2 (17:50→23:39)
--- NOTE | 2018-06-06 18:54 | CP.PCM.CON ---
Addendum entered and electronically signed by Fernie Coleman DPM 06/06/18 19:06: This Note was written by mistake for Mr. Ismael Damon. It belongs to another p atient patient. Please disregard this note Original Note: <Fernie Coleman - Last Filed: 06/06/18 18:37> History of Present Illness - History of Present Illness History of Present Illness: Poditry consult note for attending Dr. Byers: 63 y/o M patient with PMH of asthma, morbid obesity, CHF, A-fib, HTN, renal insufficiency, and chronic lymphedema seen and evaluated at the bedside in the psych unit for massive b/l LE lymphedema, stasis ulcers in his legs and myiasis. patient states that he was sent to the psych unit because he had a tantrum and through a blood pressure machine into a nurse. Patient states that he has pain in his feet specially in the bottom and he can't tolerate any touch. he states that he has pain also inbetween his toes. Patient denies any other pedal complaint at that time. Patient denies any recent F/N/V/C or SOB. PMH: asthma, morbid obesity, CHF, A-fib, HTN, renal insufficiency, and chronic lymphedema Surgical hx: Lap band, Left shoulder surgery Allergies: NKDA Social Hx: Former alcohol and substance abuse. Denies tobacco use Review of Systems - Review of Systems Review of Systems: As per HPI Past Patient History - Infectious Disease Hx of Infectious Diseases: None - Tetanus Immunizations Tetanus Immunization: Unknown - Past Medical History & Family History Past Medical History?: Yes - Past Social History Smoking Status: Never Smoked - CARDIAC Hx Cardiac Disorders: Yes Hx Hypertension: Yes - PULMONARY Hx Chronic Obstructive Pulmonary Disease (COPD): Yes - NEUROLOGICAL HX Cerebrovascular Accident: Yes (aphasia) - HEENT Other/Comment: Aphasia - RENAL Hx Chronic Kidney Disease: Yes - ENDOCRINE/METABOLIC Hx Endocrine Disorders: Yes Hx Hypothyroidism: Yes - HEMATOLOGICAL/ONCOLOGICAL Hx Blood Transfusions: No Hx Blood Transfusion Reaction: No - INTEGUMENTARY Hx Dermatological Problems: Yes (CELLULITIS TO LOWER EXTREMITY) - MUSCULOSKELETAL/RHEUMATOLOGICAL Hx Arthritis: Yes Hx Falls: Yes Hx Osteoarthritis: Yes - GASTROINTESTINAL Hx Gastrointestinal Disorders: Yes - GENITOURINARY/GYNECOLOGICAL Hx Genitourinary Disorders: Yes Other/Comment: HX: URINARY RETENTION ->[facility]ON CATH. - PSYCHIATRIC Hx Depression: Yes - SURGICAL HISTORY Hx Surgeries: Yes - ANESTHESIA Hx Anesthesia Reactions: No Hx Malignant Hyperthermia: No Meds Allergies/Adverse Reactions: Allergies Allergy/AdvReac Type Severity Reaction Status Date / Time No Known Allergies Allergy Verified 12/31/16 13:16 - Medications Medications: Current Medications Acetaminophen (Tylenol 325mg Tab) 650 mg PO Q4H PRN PRN Reason: pain and fever Acetaminophen (Tylenol 325mg Tab) 650 mg PO Q6 PRN PRN Reason: TEMP>=99.5F Acetaminophen (Tylenol 650 Mg Supp) 650 mg RC Q6H PRN PRN Reason: TEMP>=99.5F Albuterol/Ipratropium (Duoneb 3 Mg/0.5 Mg (3 Ml) Ud) 3 ml IH Q2H PRN PRN Reason: Shortness of Breath Aspirin (Aspirin Chewable) 81 mg PO DAILY [facility] Last Admin: 06/06/18 09:56 Dose: Not Given Atorvastatin Calcium (Lipitor) 40 mg PO [facility] Cholecalciferol (Vitamin D) 2,000 intlu PO DAILY [facility] Last Admin: 06/06/18 10:01 Dose: 2,000 intlu Furosemide (Lasix) 40 mg IVP Q12 [facility] Last Admin: 06/06/18 09:58 Dose: 40 mg Levalbuterol HCl (Xopenex) 0.63 mg IH [id number] [facility] Last Admin: 06/06/18 13:41 Dose: 0.63 mg Levothyroxine Sodium (Synthroid) 25 mcg PO DAILY [facility] Last Admin: 06/06/18 10:00 Dose: 25 mcg Losartan Potassium (Cozaar) 100 mg PO DAILY [facility] Last Admin: 06/06/18 10:00 Dose: 100 mg Metoprolol Tartrate (Lopressor) 50 mg PO BID [facility] Last Admin: 06/06/18 17:49 Dose: 50 mg Multivitamins (Thera Tab) 1 tab PO DAILY [facility] Last Admin: 06/06/18 09:59 Dose: 1 tab Ondansetron HCl (Zofran Inj) 4 mg IVP Q4H PRN PRN Reason: Nausea/Vomiting Oxycodone/Acetaminophen (Percocet 5/325 Mg Tab) 1 tab PO Q6H PRN PRN Reason: Pain, severe (8-10) Stop: 06/09/18 17:01 Last Admin: 06/06/18 17:50 Dose: 1 tab Pantoprazole Sodium (Protonix Ec Tab) 40 mg PO ACB [facility] Potassium Chloride (K-Dur 20 Meq Er Tab) 20 meq PO DAILY [facility] Last Admin: 06/06/18 09:59 Dose: 20 meq Tamsulosin HCl (Flomax) 0.4 mg PO DAILY [facility] Last Admin: 06/06/18 10:00 Dose: 0.4 mg Physical Exam - Constitutional Appears: Non-toxic, No Acute Distress - Head Exam Head Exam: ATRAUMATIC, NORMOCEPHALIC - Extremities Exam Additional comments: LE focused exam: Vasc: DP/PT pulses non-palpable secondary to b/l lymphedema. Cap refill > 3 seconds to all digits. Skin temperature warm to warm from proximal to distal. Massive b/l lymphedema. Neuro: Couldn't be assessed. Patient is incooperative. Derm: B/l LE massive lyphedema. Scattered small ulcerations about 1-2 cm in diameter with no depth. Maggots present allover his lE. Patient has very bad hygein. positive malodor. Positive serous discharge allover his LE. MSK: Pain on palpating the platar aspectof the patient feet. Pain in between the toes, Muscle power Couldn't be assessed. Patient is incooperative - Neurological Exam Neurological exam: Alert Results - Vital Signs Recent Vital Signs: Last Vital Signs Temp 98.4 F 06/06/18 14:00 Pulse 88 06/06/18 17:49 Resp 18 06/06/18 14:00 BP 129/88 06/06/18 17:49 Pulse Ox 97 06/06/18 14:00 - Labs Result Diagrams: 06/06/18 10:15 06/06/18 10:15 Labs: Laboratory Results - last 24 hr 06/05/18 06/05/18 06/05/18 20:20 20:20 20:20 WBC 4.5 D RBC 4.05 Hgb 12.7 L Hct 37.6 L MCV 92.8 MCH 31.4 MCHC 33.8 RDW 13.7 Plt Count 117 L Manual Plt Count MPV 9.2 Gran % Lymph % (Auto) [place] % (Auto) Eos % (Auto) Baso % (Auto) Gran # Lymph # (Auto) [place] # (Auto) Eos # (Auto) Baso # (Auto) PT 20.2 H INR 1.75 APTT 27.3 Sodium 139 Potassium 3.9 Chloride 105 Carbon Dioxide 24 Anion Gap 14 BUN 23 H Creatinine 1.7 H Est GFR ( Amer) 50 Est GFR (Non-Af Amer) 41 Random Glucose 106 Calcium 8.6 Phosphorus Magnesium Total Bilirubin 1.8 H Direct Bilirubin AST 29 ALT 25 Alkaline Phosphatase 79 Total Protein 6.5 Albumin 3.4 Globulin 3.1 Albumin/Globulin Ratio 1.1 Prostate Specific Ag Free T4 Thyroxine (T4) TSH 3rd Generation 06/06/18 06/06/18 06/06/18 10:15 10:15 10:15 WBC 4.9 RBC 3.90 Hgb 12.2 L Hct 36.3 L MCV 93.1 MCH 31.3 MCHC 33.6 RDW 13.8 Plt Count 105 L Manual Plt Count 117 L MPV 8.8 Gran % 75.4 H Lymph % (Auto) 15.2 L [place] % (Auto) 8.8 H Eos % (Auto) 0.6 L Baso % (Auto) 0.0 Gran # 3.68 Lymph # (Auto) 0.7 L [place] # (Auto) 0.4 Eos # (Auto) 0.0 Baso # (Auto) 0.00 PT 17.3 H INR 1.49 APTT 25.5 Sodium 140 Potassium 3.6 Chloride 108 H Carbon Dioxide 25 Anion Gap 11 BUN 21 Creatinine 1.6 H Est GFR ( Amer) 53 Est GFR (Non-Af Amer) 44 Random Glucose 111 H Calcium 8.6 Phosphorus 3.0 Magnesium 1.9 Total Bilirubin 1.5 H Direct Bilirubin 0.3 AST 23 ALT 23 Alkaline Phosphatase 71 Total Protein 6.3 Albumin 3.1 Globulin 3.2 Albumin/Globulin Ratio 1.0 L Prostate Specific Ag Free T4 Thyroxine (T4) TSH 3rd Generation 06/06/18 10:15 WBC RBC Hgb Hct MCV MCH MCHC RDW Plt Count Manual Plt Count MPV Gran % Lymph % (Auto) [place] % (Auto) Eos % (Auto) Baso % (Auto) Gran # Lymph # (Auto) [place] # (Auto) Eos # (Auto) Baso # (Auto) PT INR APTT Sodium Potassium Chloride Carbon Dioxide Anion Gap BUN Creatinine Est GFR ( Amer) Est GFR (Non-Af Amer) Random Glucose Calcium Phosphorus Magnesium Total Bilirubin Direct Bilirubin AST ALT Alkaline Phosphatase Total Protein Albumin Globulin Albumin/Globulin Ratio Prostate Specific Ag 1.0 Free T4 1.41 Thyroxine (T4) 4.4 L TSH 3rd Generation 1.55 Assessment & Plan - Assessment and Plan (Free Text) Assessment: 63 y/o M patient seen and evaluated at the bed side for b/l massive LE edema,stasis ulcers in his legs and Myiasis. Plan: Patient seen and evaluated at the bedside. Plan discussed in detailes with dr. Byers. Chart, labs and vitals reviewed; Afebrile, WBCs 4.9 Patient legs cleaned with hydrogen peroxide, Chlorhexidine brush and dressed using DSD and compression dressing (Kameron bandage). Betadine and 4X4 gauze in between the toes. Podiatry will follow up the patient while in house. - Date & Time Date: 06/06/18 Time: 11:20 <Mynor Byers - Last Filed: 06/07/18 08:19> Meds - Medications Medications: Current Medications Acetaminophen (Tylenol 325mg Tab) 650 mg PO Q4H PRN PRN Reason: pain and fever Acetaminophen (Tylenol 325mg Tab) 650 mg PO Q6 PRN PRN Reason: TEMP>=99.5F Acetaminophen (Tylenol 650 Mg Supp) 650 mg RC Q6H PRN PRN Reason: TEMP>=99.5F Albuterol/Ipratropium (Duoneb 3 Mg/0.5 Mg (3 Ml) Ud) 3 ml IH Q2H PRN PRN Reason: Shortness of Breath Aspirin (Aspirin Chewable) 81 mg PO DAILY [facility] Last Admin: 06/06/18 09:56 Dose: Not Given Atorvastatin Calcium (Lipitor) 40 mg PO HS [facility] Last Admin: 06/06/18 22:40 Dose: 40 mg Cholecalciferol (Vitamin D) 2,000 intlu PO DAILY [facility] Last Admin: 06/06/18 10:01 Dose: 2,000 intlu Furosemide (Lasix) 40 mg IVP Q12 [facility] Last Admin: 06/06/18 22:40 Dose: 40 mg Cefepime HCl (Maxipime 1gm) 1 gm in 100 mls @ 100 mls/hr IVPB Q12 [facility]; Protocol Last Admin: 06/06/18 22:40 Dose: 100 mls/hr Levalbuterol HCl (Xopenex) 0.63 mg IH [id number] [facility] Last Admin: 06/07/18 01:12 Dose: Not Given Levothyroxine Sodium (Synthroid) 25 mcg PO DAILY [facility] Last Admin: 06/06/18 10:00 Dose: 25 mcg Losartan Potassium (Cozaar) 100 mg PO DAILY [facility] Last Admin: 06/06/18 10:00 Dose: 100 mg Metoprolol Tartrate (Lopressor) 50 mg PO BID [facility] Last Admin: 06/06/18 17:49 Dose: 50 mg Multivitamins (Thera Tab) 1 tab PO DAILY [facility] Last Admin: 06/06/18 09:59 Dose: 1 tab Ondansetron HCl (Zofran Inj) 4 mg IVP Q4H PRN PRN Reason: Nausea/Vomiting Oxycodone/Acetaminophen (Percocet 5/325 Mg Tab) 1 tab PO Q6H PRN PRN Reason: Pain, severe (8-10) Stop: 06/09/18 17:01 Last Admin: 06/06/18 23:39 Dose: 1 tab Pantoprazole Sodium (Protonix Ec Tab) 40 mg PO ACB [facility] Potassium Chloride (K-Dur 20 Meq Er Tab) 20 meq PO DAILY [facility] Last Admin: 06/06/18 09:59 Dose: 20 meq Tamsulosin HCl (Flomax) 0.4 mg PO DAILY [facility] Last Admin: 06/06/18 10:00 Dose: 0.4 mg Results - Vital Signs Recent Vital Signs: Last Vital Signs Temp 98.3 F 06/07/18 06:00 Pulse 72 06/07/18 06:00 Resp 20 06/07/18 06:00 BP 117/64 06/07/18 06:00 Pulse Ox 96 06/07/18 06:00 - Labs Result Diagrams: 06/06/18 10:15 06/06/18 10:15 Labs: Laboratory Results - last 24 hr 06/06/18 06/06/18 06/06/18 10:15 10:15 10:15 WBC 4.9 RBC 3.90 Hgb 12.2 L Hct 36.3 L MCV 93.1 MCH 31.3 MCHC 33.6 RDW 13.8 Plt Count 105 L Manual Plt Count 117 L MPV 8.8 Gran % 75.4 H Lymph % (Auto) 15.2 L [place] % (Auto) 8.8 H Eos % (Auto) 0.6 L Baso % (Auto) 0.0 Gran # 3.68 Lymph # (Auto) 0.7 L [place] # (Auto) 0.4 Eos # (Auto) 0.0 Baso # (Auto) 0.00 PT 17.3 H INR 1.49 APTT 25.5 Sodium 140 Potassium 3.6 Chloride 108 H Carbon Dioxide 25 Anion Gap 11 BUN 21 Creatinine 1.6 H Est GFR ( Amer) 53 Est GFR (Non-Af Amer) 44 Random Glucose 111 H Calcium 8.6 Phosphorus 3.0 Magnesium 1.9 Total Bilirubin 1.5 H Direct Bilirubin 0.3 AST 23 ALT 23 Alkaline Phosphatase 71 Total Protein 6.3 Albumin 3.1 Globulin 3.2 Albumin/Globulin Ratio 1.0 L Prostate Specific Ag Free T4 Thyroxine (T4) TSH 3rd Generation 06/06/18 10:15 WBC RBC Hgb Hct MCV MCH MCHC RDW Plt Count Manual Plt Count MPV Gran % Lymph % (Auto) [place] % (Auto) Eos % (Auto) Baso % (Auto) Gran # Lymph # (Auto) [place] # (Auto) Eos # (Auto) Baso # (Auto) PT INR APTT Sodium Potassium Chloride Carbon Dioxide Anion Gap BUN Creatinine Est GFR ( Amer) Est GFR (Non-Af Amer) Random Glucose Calcium Phosphorus Magnesium Total Bilirubin Direct Bilirubin AST ALT Alkaline Phosphatase Total Protein Albumin Globulin Albumin/Globulin Ratio Prostate Specific Ag 1.0 Free T4 1.41 Thyroxine (T4) 4.4 L TSH 3rd Generation 1.55 Attending/Attestation - Attestation I have personally seen and examined this patient.: Yes I have fully participated in the care of the patient.: Yes I have reviewed all pertinent clinical information: Yes
--- NOTE | 2018-06-06 19:07 | CP.PCM.CON ---
<Fernie Coleman - Last Filed: 06/06/18 19:03> History of Present Illness - History of Present Illness History of Present Illness: Poditry consult note for attending Dr. Byers: 63 y/o M patient with PMH of asthma, morbid obesity, CHF, A-fib, HTN, renal insufficiency, and chronic lymphedema seen and evaluated at the bedside in the b/l LE lymphedema, stasis ulcers in his legs. patient is incoherent and non communicable. Most of the patient informations obtained from his chart and his nurse. Patient nurse states that the patient was admitted to the hospital cause he develops hematurea. Patient nurse states that he has ulcers in his legs and he used to follow up in the wound care center. Patient nurse denies any other pedal complaint at that time. Patient nurse denies any recent F/N/V/C or SOB. PMH: asthma, morbid obesity, CHF, A-fib, HTN, renal insufficiency, and chronic lymphedema Surgical hx: Lap band, Left shoulder surgery Allergies: NKDA Social Hx: Former alcohol and substance abuse. Denies tobacco use Review of Systems - Review of Systems Review of Systems: As per HPI Past Patient History - Infectious Disease Hx of Infectious Diseases: None - Tetanus Immunizations Tetanus Immunization: Unknown - Past Medical History & Family History Past Medical History?: Yes - Past Social History Smoking Status: Never Smoked - CARDIAC Hx Cardiac Disorders: Yes Hx Hypertension: Yes - PULMONARY Hx Chronic Obstructive Pulmonary Disease (COPD): Yes - NEUROLOGICAL HX Cerebrovascular Accident: Yes (aphasia) - HEENT Other/Comment: Aphasia - RENAL Hx Chronic Kidney Disease: Yes - ENDOCRINE/METABOLIC Hx Endocrine Disorders: Yes Hx Hypothyroidism: Yes - HEMATOLOGICAL/ONCOLOGICAL Hx Blood Transfusions: No Hx Blood Transfusion Reaction: No - INTEGUMENTARY Hx Dermatological Problems: Yes (CELLULITIS TO LOWER EXTREMITY) - MUSCULOSKELETAL/RHEUMATOLOGICAL Hx Arthritis: Yes Hx Falls: Yes Hx Osteoarthritis: Yes - GASTROINTESTINAL Hx Gastrointestinal Disorders: Yes - GENITOURINARY/GYNECOLOGICAL Hx Genitourinary Disorders: Yes Other/Comment: HX: URINARY RETENTION ->[facility]ON CATH. - PSYCHIATRIC Hx Depression: Yes - SURGICAL HISTORY Hx Surgeries: Yes - ANESTHESIA Hx Anesthesia Reactions: No Hx Malignant Hyperthermia: No Meds Allergies/Adverse Reactions: Allergies Allergy/AdvReac Type Severity Reaction Status Date / Time No Known Allergies Allergy Verified 04/24/17 13:16 - Medications Medications: Current Medications Acetaminophen (Tylenol 325mg Tab) 650 mg PO Q4H PRN PRN Reason: pain and fever Acetaminophen (Tylenol 325mg Tab) 650 mg PO Q6 PRN PRN Reason: TEMP>=99.5F Acetaminophen (Tylenol 650 Mg Supp) 650 mg RC Q6H PRN PRN Reason: TEMP>=99.5F Albuterol/Ipratropium (Duoneb 3 Mg/0.5 Mg (3 Ml) Ud) 3 ml IH Q2H PRN PRN Reason: Shortness of Breath Aspirin (Aspirin Chewable) 81 mg PO DAILY [facility], [facility] Last Admin: 06/06/18 09:56 Dose: Not Given Atorvastatin Calcium (Lipitor) 40 mg PO HS [facility], [facility] Cholecalciferol (Vitamin D) 2,000 intlu PO DAILY [facility], [facility] Last Admin: 06/06/18 10:01 Dose: 2,000 intlu Furosemide (Lasix) 40 mg IVP Q12 [facility] Last Admin: 06/06/18 09:58 Dose: 40 mg Levalbuterol HCl (Xopenex) 0.63 mg IH [id number] [facility] Last Admin: 06/06/18 13:41 Dose: 0.63 mg Levothyroxine Sodium (Synthroid) 25 mcg PO DAILY [facility] Last Admin: 06/06/18 10:00 Dose: 25 mcg Losartan Potassium (Cozaar) 100 mg PO DAILY [facility] Last Admin: 06/06/18 10:00 Dose: 100 mg Metoprolol Tartrate (Lopressor) 50 mg PO BID [facility] Last Admin: 06/06/18 17:49 Dose: 50 mg Multivitamins (Thera Tab) 1 tab PO DAILY [facility] Last Admin: 06/06/18 09:59 Dose: 1 tab Ondansetron HCl (Zofran Inj) 4 mg IVP Q4H PRN PRN Reason: Nausea/Vomiting Oxycodone/Acetaminophen (Percocet 5/325 Mg Tab) 1 tab PO Q6H PRN PRN Reason: Pain, severe (8-10) Stop: 06/09/18 17:01 Last Admin: 06/06/18 17:50 Dose: 1 tab Pantoprazole Sodium (Protonix Ec Tab) 40 mg PO ACB [facility] Potassium Chloride (K-Dur 20 Meq Er Tab) 20 meq PO DAILY [facility] Last Admin: 06/06/18 09:59 Dose: 20 meq Tamsulosin HCl (Flomax) 0.4 mg PO DAILY [facility] Last Admin: 06/06/18 10:00 Dose: 0.4 mg Physical Exam - Constitutional Appears: Non-toxic - Head Exam Head Exam: ATRAUMATIC, NORMOCEPHALIC - Extremities Exam Additional comments: B/L LE focused exam: Vasc: DP/PT pulses 2/4 b/l. Cap refill > 3 seconds to all digits. Skin temperature warm to warm from proximal to distal. Severe b/l lymphedema noted b/l Neuro: Couldn't be done. Patient is incooperative Derm: RLE - Healed ulcerations. Diffuse dermal changes (hyperpigmentation and lichnification). No signs of infections LLE- three 0.5 cm x 0.5 cm x 0.1 venous stasis ulceration noted to anterior leg and to posterior leg. No erythema, no malodor, no other clinical signs of infection. Moderate serous drainage noted to site. Base is fibrogranular. Diffuse dermal changes (hyperpigmentation and lichnification). MSK: Unable to assess pain on palpation, Muscle power Couldn't be assessed. Patient is incooperative No other gross deformities noted Results - Vital Signs Recent Vital Signs: Last Vital Signs Temp 98.4 F 06/06/18 14:00 Pulse 88 06/06/18 17:49 Resp 18 06/06/18 14:00 BP 129/88 06/06/18 17:49 Pulse Ox 97 06/06/18 14:00 - Labs Result Diagrams: 06/06/18 10:15 06/06/18 10:15 Labs: Laboratory Results - last 24 hr 06/05/18 06/05/18 06/05/18 20:20 20:20 20:20 WBC 4.5 D RBC 4.05 Hgb 12.7 L Hct 37.6 L MCV 92.8 MCH 31.4 MCHC 33.8 RDW 13.7 Plt Count 117 L Manual Plt Count MPV 9.2 Gran % Lymph % (Auto) [place] % (Auto) Eos % (Auto) Baso % (Auto) Gran # Lymph # (Auto) [place] # (Auto) Eos # (Auto) Baso # (Auto) PT 20.2 H INR 1.75 APTT 27.3 Sodium 139 Potassium 3.9 Chloride 105 Carbon Dioxide 24 Anion Gap 14 BUN 23 H Creatinine 1.7 H Est GFR ( Amer) 50 Est GFR (Non-Af Amer) 41 Random Glucose 106 Calcium 8.6 Phosphorus Magnesium Total Bilirubin 1.8 H Direct Bilirubin AST 29 ALT 25 Alkaline Phosphatase 79 Total Protein 6.5 Albumin 3.4 Globulin 3.1 Albumin/Globulin Ratio 1.1 Prostate Specific Ag Free T4 Thyroxine (T4) TSH 3rd Generation 06/06/18 06/06/18 06/06/18 10:15 10:15 10:15 WBC 4.9 RBC 3.90 Hgb 12.2 L Hct 36.3 L MCV 93.1 MCH 31.3 MCHC 33.6 RDW 13.8 Plt Count 105 L Manual Plt Count 117 L MPV 8.8 Gran % 75.4 H Lymph % (Auto) 15.2 L [place] % (Auto) 8.8 H Eos % (Auto) 0.6 L Baso % (Auto) 0.0 Gran # 3.68 Lymph # (Auto) 0.7 L [place] # (Auto) 0.4 Eos # (Auto) 0.0 Baso # (Auto) 0.00 PT 17.3 H INR 1.49 APTT 25.5 Sodium 140 Potassium 3.6 Chloride 108 H Carbon Dioxide 25 Anion Gap 11 BUN 21 Creatinine 1.6 H Est GFR ( Amer) 53 Est GFR (Non-Af Amer) 44 Random Glucose 111 H Calcium 8.6 Phosphorus 3.0 Magnesium 1.9 Total Bilirubin 1.5 H Direct Bilirubin 0.3 AST 23 ALT 23 Alkaline Phosphatase 71 Total Protein 6.3 Albumin 3.1 Globulin 3.2 Albumin/Globulin Ratio 1.0 L Prostate Specific Ag Free T4 Thyroxine (T4) TSH 3rd Generation 06/06/18 10:15 WBC RBC Hgb Hct MCV MCH MCHC RDW Plt Count Manual Plt Count MPV Gran % Lymph % (Auto) [place] % (Auto) Eos % (Auto) Baso % (Auto) Gran # Lymph # (Auto) [place] # (Auto) Eos # (Auto) Baso # (Auto) PT INR APTT Sodium Potassium Chloride Carbon Dioxide Anion Gap BUN Creatinine Est GFR ( Amer) Est GFR (Non-Af Amer) Random Glucose Calcium Phosphorus Magnesium Total Bilirubin Direct Bilirubin AST ALT Alkaline Phosphatase Total Protein Albumin Globulin Albumin/Globulin Ratio Prostate Specific Ag 1.0 Free T4 1.41 Thyroxine (T4) 4.4 L TSH 3rd Generation 1.55 Assessment & Plan - Assessment and Plan (Free Text) Assessment: 63 y/o M patient seen and evaluated at the bed side for b/l massive LE edema,stasis ulcers in his legs. Plan: Patient seen and evaluated at the bedside. Plan discussed in detailes with dr. Byers. Chart, labs and vitals reviewed; Afebrile, WBCs 4.9 patient dressing from the wound care center (silvercell, collagen and stockinet) left intact Podiatry will follow up the patient while in house. - Date & Time Date: 06/06/18 Time: 12:00 <Mynor Byers - Last Filed: 06/07/18 08:17> Meds - Medications Medications: Current Medications Acetaminophen (Tylenol 325mg Tab) 650 mg PO Q4H PRN PRN Reason: pain and fever Acetaminophen (Tylenol 325mg Tab) 650 mg PO Q6 PRN PRN Reason: TEMP>=99.5F Acetaminophen (Tylenol 650 Mg Supp) 650 mg RC Q6H PRN PRN Reason: TEMP>=99.5F Albuterol/Ipratropium (Duoneb 3 Mg/0.5 Mg (3 Ml) Ud) 3 ml IH Q2H PRN PRN Reason: Shortness of Breath Aspirin (Aspirin Chewable) 81 mg PO DAILY [facility] Last Admin: 06/06/18 09:56 Dose: Not Given Atorvastatin Calcium (Lipitor) 40 mg PO HS [id number] Last Admin: 06/06/18 22:40 Dose: 40 mg Cholecalciferol (Vitamin D) 2,000 intlu PO DAILY [facility] Last Admin: 06/06/18 10:01 Dose: 2,000 intlu Furosemide (Lasix) 40 mg IVP Q12 [facility] Last Admin: 06/06/18 22:40 Dose: 40 mg Cefepime HCl (Maxipime 1gm) 1 gm in 100 mls @ 100 mls/hr IVPB Q12 [facility]; Protocol Last Admin: 06/06/18 22:40 Dose: 100 mls/hr Levalbuterol HCl (Xopenex) 0.63 mg IH [id number] [facility] Last Admin: 06/07/18 01:12 Dose: Not Given Levothyroxine Sodium (Synthroid) 25 mcg PO DAILY [facility] Last Admin: 06/06/18 10:00 Dose: 25 mcg Losartan Potassium (Cozaar) 100 mg PO DAILY [facility] Last Admin: 06/06/18 10:00 Dose: 100 mg Metoprolol Tartrate (Lopressor) 50 mg PO BID [facility] Last Admin: 06/06/18 17:49 Dose: 50 mg Multivitamins (Thera Tab) 1 tab PO DAILY [facility] Last Admin: 06/06/18 09:59 Dose: 1 tab Ondansetron HCl (Zofran Inj) 4 mg IVP Q4H PRN PRN Reason: Nausea/Vomiting Oxycodone/Acetaminophen (Percocet 5/325 Mg Tab) 1 tab PO Q6H PRN PRN Reason: Pain, severe (8-10) Stop: 06/09/18 17:01 Last Admin: 06/06/18 23:39 Dose: 1 tab Pantoprazole Sodium (Protonix Ec Tab) 40 mg PO ACB [facility]1983 Potassium Chloride (K-Dur 20 Meq Er Tab) 20 meq PO DAILY [facility] Last Admin: 06/06/18 09:59 Dose: 20 meq Tamsulosin HCl (Flomax) 0.4 mg PO DAILY [facility] Last Admin: 06/06/18 10:00 Dose: 0.4 mg Results - Vital Signs Recent Vital Signs: Last Vital Signs Temp 98.3 F 06/07/18 06:00 Pulse 72 06/07/18 06:00 Resp 20 06/07/18 06:00 BP 117/64 06/07/18 06:00 Pulse Ox 96 06/07/18 06:00 - Labs Result Diagrams: 06/06/18 10:15 06/06/18 10:15 Labs: Laboratory Results - last 24 hr 06/06/18 06/06/18 06/06/18 10:15 10:15 10:15 WBC 4.9 RBC 3.90 Hgb 12.2 L Hct 36.3 L MCV 93.1 MCH 31.3 MCHC 33.6 RDW 13.8 Plt Count 105 L Manual Plt Count 117 L MPV 8.8 Gran % 75.4 H Lymph % (Auto) 15.2 L [place] % (Auto) 8.8 H Eos % (Auto) 0.6 L Baso % (Auto) 0.0 Gran # 3.68 Lymph # (Auto) 0.7 L [place] # (Auto) 0.4 Eos # (Auto) 0.0 Baso # (Auto) 0.00 PT 17.3 H INR 1.49 APTT 25.5 Sodium 140 Potassium 3.6 Chloride 108 H Carbon Dioxide 25 Anion Gap 11 BUN 21 Creatinine 1.6 H Est GFR ( Amer) 53 Est GFR (Non-Af Amer) 44 Random Glucose 111 H Calcium 8.6 Phosphorus 3.0 Magnesium 1.9 Total Bilirubin 1.5 H Direct Bilirubin 0.3 AST 23 ALT 23 Alkaline Phosphatase 71 Total Protein 6.3 Albumin 3.1 Globulin 3.2 Albumin/Globulin Ratio 1.0 L Prostate Specific Ag Free T4 Thyroxine (T4) TSH 3rd Generation 06/06/18 10:15 WBC RBC Hgb Hct MCV MCH MCHC RDW Plt Count Manual Plt Count MPV Gran % Lymph % (Auto) [place] % (Auto) Eos % (Auto) Baso % (Auto) Gran # Lymph # (Auto) [place] # (Auto) Eos # (Auto) Baso # (Auto) PT INR APTT Sodium Potassium Chloride Carbon Dioxide Anion Gap BUN Creatinine Est GFR ( Amer) Est GFR (Non-Af Amer) Random Glucose Calcium Phosphorus Magnesium Total Bilirubin Direct Bilirubin AST ALT Alkaline Phosphatase Total Protein Albumin Globulin Albumin/Globulin Ratio Prostate Specific Ag 1.0 Free T4 1.41 Thyroxine (T4) 4.4 L TSH 3rd Generation 1.55 Attending/Attestation - Attestation I have personally seen and examined this patient.: Yes I have fully participated in the care of the patient.: Yes I have reviewed all pertinent clinical information: Yes
--- NOTE | 2018-06-06 22:02 | PCM.URO ---
Urology Progress Note - Subjective Hematuria: Yes (now clear) - Objective Lab Results Last 24 Hours: Laboratory Results - last 24 hr 06/06/18 06/06/18 06/06/18 10:15 10:15 10:15 WBC 4.9 RBC 3.90 Hgb 12.2 L Hct 36.3 L MCV 93.1 MCH 31.3 MCHC 33.6 RDW 13.8 Plt Count 105 L Manual Plt Count 117 L MPV 8.8 Gran % 75.4 H Lymph % (Auto) 15.2 L [place] % (Auto) 8.8 H Eos % (Auto) 0.6 L Baso % (Auto) 0.0 Gran # 3.68 Lymph # (Auto) 0.7 L [place] # (Auto) 0.4 Eos # (Auto) 0.0 Baso # (Auto) 0.00 PT 17.3 H INR 1.49 APTT 25.5 Sodium 140 Potassium 3.6 Chloride 108 H Carbon Dioxide 25 Anion Gap 11 BUN 21 Creatinine 1.6 H Est GFR ( Amer) 53 Est GFR (Non-Af Amer) 44 Random Glucose 111 H Calcium 8.6 Phosphorus 3.0 Magnesium 1.9 Total Bilirubin 1.5 H Direct Bilirubin 0.3 AST 23 ALT 23 Alkaline Phosphatase 71 Total Protein 6.3 Albumin 3.1 Globulin 3.2 Albumin/Globulin Ratio 1.0 L Prostate Specific Ag Free T4 Thyroxine (T4) TSH 3rd Generation 06/06/18 10:15 WBC RBC Hgb Hct MCV MCH MCHC RDW Plt Count Manual Plt Count MPV Gran % Lymph % (Auto) [place] % (Auto) Eos % (Auto) Baso % (Auto) Gran # Lymph # (Auto) [place] # (Auto) Eos # (Auto) Baso # (Auto) PT INR APTT Sodium Potassium Chloride Carbon Dioxide Anion Gap BUN Creatinine Est GFR ( Amer) Est GFR (Non-Af Amer) Random Glucose Calcium Phosphorus Magnesium Total Bilirubin Direct Bilirubin AST ALT Alkaline Phosphatase Total Protein Albumin Globulin Albumin/Globulin Ratio Prostate Specific Ag 1.0 Free T4 1.41 Thyroxine (T4) 4.4 L TSH 3rd Generation 1.55 Intake & Output: Intake & Output 06/06/18 06/06/18 06/07/18 06:59 18:59 06:59 Weight 350 lb Other: Voiding Method Indwelling Catheter Vital Signs: Vital Signs - 24 hr 06/05/18 06/05/18 06/06/18 22:13 23:21 06:00 Temperature 97.8 F Pulse Rate 92 H 105 H Respiratory 23 19 18 Rate Blood Pressure 155/75 H 144/97 H O2 Sat by Pulse 98 97 Oximetry 06/06/18 06/06/18 06/06/18 09:58 09:59 14:00 Temperature 98.4 F Pulse Rate 102 H 88 Respiratory 18 Rate Blood Pressure 143/92 H 143/92 H 129/88 O2 Sat by Pulse 97 Oximetry 06/06/18 17:49 Temperature Pulse Rate 88 Respiratory Rate Blood Pressure 129/88 O2 Sat by Pulse Oximetry
[2018-06-06] MEDS: Cefepime 1gm in NS 100ml 1 GM/100 ML BAG IVPB SCH (22:40)
[2018-06-06] MEDS ORDERED: DiphenhydrAMINE 50 mg/ml Inj IVP STA (22:47)
[2018-06-07] MEDS: Levalbuterol 0.63 MG/3 ML Inhal Soln UD IH SCH ×4 (01:12→21:11)
--- NOTE | 2018-06-07 04:26 | CON ---
DATE: 06/05/2018 REASON FOR CONSULTATION: Gross hematuria. HISTORY OF PRESENT ILLNESS: Mr. Damon is a very pleasant gentleman who I have previously seen. He has multiple medical issues. He had CVAs in the past. He is actually on Eliquis. He is living with an indwelling [place] catheter. There are various options that we discussed with the , the patient, and the [id number]. We tried to do a suprapubic catheter, but we were unsuccessful and at that time, we felt safety first. So, we have been discussing considering repeating it. His body habitus makes it somewhat difficult and his neurogenic bladder where he has spontaneous congestion makes it difficult to over distend his bladder. So, see the plans as listed below, but for now, he is presenting with gross hematuria, but according to his who is more able to discuss it, he is able to communicate minimally at best, but seems to understand well, but his reports that what he gets excited, he yells and groans, the blood is started. Whether the catheter is getting pulled or not, it is difficult to assess, see the plans listed below. PAST MEDICAL AND SURGICAL HISTORY: As listed. He is under the care of Dr. Brown who was kind enough to admit the patient for routine medical. From Urology standpoint, he has the underlying gross hematuria, see the plans listed below. MEDICATIONS: See the chart including Eliquis which is actually going to hold for now. ALLERGIES: LISTED ON THE CHART. PHYSICAL EXAMINATION: GENERAL: In no apparent distress. VITAL SIGNS: Noted. GENITOURINARY: Sevilla catheter is currently in place and it is draining clear yellow urine, what is noted is a good amount of blood on the site of the penis. From the 's discussion, previously, there was tremendous amount of blood on the site of the catheter. LABORATORY DATA: Labs noted on the chart. DIAGNOSES AND PLAN: 1. Gross hematuria. 2. Urinary retention. 3. Voiding dysfunction. 4. Neurogenic bladder. I had a long conversation with the patient, , and [id number]. I also had previous conversation. The source of bleeding in this setting is less likely to be kidney in origin, most likely the bladder and prostate in origin. From urology standpoint, I should check the possibility for using a catheter plug and having the nurses drain, I will see if that is able to happen and then it would not get full. The other possibility is that to reassess and possibly do a cystostomy tube insertion, suprapubic catheter. Case has been discussed with Dr. Brown. The timing for the Eliquis how long we need to stop it and we will try to increase the patient as quickly as possible. While the patient was here, the first doubt when I looked at the urine was clear in the bag, subsequently after a little episode where the patient was agitated, we then reevaluated and the urine got blood in it. At the time of this dictation, things cleared out. So, it is a friable situation and most likely friable from the prostate, likely source of the bleeding in this setting and so tomorrow end, we will consider the possibility of a suprapubic catheter. In the interim, the plan as follows; 1. We will hold Eliquis if it stays. 2. Maintain current Sevilla, but the patient and requested that I do not change as for now and then further plans can follow. We will try to observe the patient and treat as quickly as possible. We will discuss further plan overnight. The patient is anticoagulated. The plan will be as follows, we will see if we can hold the Eliquis, and then we will consider doing a cystostomy tube as rapidly as possible. Jae Nance MD
[2018-06-07] MEDS ORDERED: Pantoprazole 40 mg EC Tab PO SCH (06:00)
[2018-06-07] MEDS: Pantoprazole 40 mg EC Tab PO SCH (08:06)
[2018-06-07] MEDS: Potassium Chloride 20 mEq ER Tab PO SCH (10:00)
[2018-06-07] MEDS: Cholecalciferol 1,000 INTLU TAB PO SCH (10:00)
[2018-06-07] MEDS: Levothyroxine 25 MCG TAB PO SCH (10:00)
--- NOTE | 2018-06-07 10:30 | CP.PCM.PCO ---
Addendum Addendum: I met with patient at bedside. He is alert and oriented to month, location, year and circumstances. Patient has expressive aphasia however can express himself well in short phrases. He actually defers on any psychiatric management at this time. He is not suicidal and denies thoughts to harm others. Delusions or paranoia were not elicited. He does not present as an acute danger to herself or others. At this time psychiatry will respect patient's wishes and sign off. Patient aware he may request our f/u at any time if he should change his mind.
[2018-06-07] MEDS: Multivitamin Therapeutic Tab PO SCH (10:55)
--- NOTE | 2018-06-07 11:12 | CP.PCM.PN ---
<Derek Huizar - Last Filed: 06/07/18 11:08> Subjective - Date & Time of Evaluation Date of Evaluation: 06/07/18 Time of Evaluation: 11:09 - Subjective Subjective: Podiatry progress note for Dr. Byers: 63 y/o M seen and evaluated at the bedside in the b/l LE lymphedema, stasis ulcers in his legs. patient is incoherent and non communicable. Most of the patient informations obtained from his chart and his nurse. Patient nurse states that the patient was admitted to the hospital cause he develops hematuria. Patient nurse states that he has ulcers in his legs and he used to follow up in the wound care center. Patient nurse denies any other pedal complaint at that time. Patient nurse denies any recent F/N/V/C or SOB. Objective - Vital Signs/Intake and Output Vital Signs (last 24 hours): Temp Pulse Resp BP Pulse Ox 98.3 F 72 20 117/64 96 06/07/18 06:00 06/07/18 06:00 06/07/18 06:00 06/07/18 06:00 06/07/18 06:00 Intake and Output: 06/07/18 06/07/18 06:59 18:59 Intake Total 540 Output Total 500 Balance 40 - Medications Medications: Current Medications Acetaminophen (Tylenol 325mg Tab) 650 mg PO Q4H PRN PRN Reason: pain and fever Acetaminophen (Tylenol 325mg Tab) 650 mg PO Q6 PRN PRN Reason: TEMP>=99.5F Acetaminophen (Tylenol 650 Mg Supp) 650 mg RC Q6H PRN PRN Reason: TEMP>=99.5F Albuterol/Ipratropium (Duoneb 3 Mg/0.5 Mg (3 Ml) Ud) 3 ml IH Q2H PRN PRN Reason: Shortness of Breath Aspirin (Aspirin Chewable) 81 mg PO DAILY [facility] Last Admin: 06/06/18 09:56 Dose: Not Given Atorvastatin Calcium (Lipitor) 40 mg PO HS [facility] Last Admin: 06/06/18 22:40 Dose: 40 mg Cholecalciferol (Vitamin D) 2,000 intlu PO DAILY [facility] Last Admin: 06/06/18 10:01 Dose: 2,000 intlu Furosemide (Lasix) 40 mg IVP Q12 [facility] Last Admin: 06/06/18 22:40 Dose: 40 mg Cefepime HCl (Maxipime 1gm) 1 gm in 100 mls @ 100 mls/hr IVPB Q12 [facility]; Protocol Last Admin: 06/06/18 22:40 Dose: 100 mls/hr Levalbuterol HCl (Xopenex) 0.63 mg IH [id number] [facility] Last Admin: 06/07/18 01:12 Dose: Not Given Levothyroxine Sodium (Synthroid) 25 mcg PO DAILY [facility] Last Admin: 06/06/18 10:00 Dose: 25 mcg Losartan Potassium (Cozaar) 100 mg PO DAILY [facility] Last Admin: 06/06/18 10:00 Dose: 100 mg Metoprolol Tartrate (Lopressor) 50 mg PO BID [facility] Last Admin: 06/06/18 17:49 Dose: 50 mg Multivitamins (Thera Tab) 1 tab PO DAILY [facility] Last Admin: 06/06/18 09:59 Dose: 1 tab Ondansetron HCl (Zofran Inj) 4 mg IVP Q4H PRN PRN Reason: Nausea/Vomiting Oxycodone/Acetaminophen (Percocet 5/325 Mg Tab) 1 tab PO Q6H PRN PRN Reason: Pain, severe (8-10) Stop: 06/09/18 17:01 Last Admin: 06/06/18 23:39 Dose: 1 tab Pantoprazole Sodium (Protonix Ec Tab) 40 mg PO ACB [facility] Potassium Chloride (K-Dur 20 Meq Er Tab) 20 meq PO DAILY [facility] Last Admin: 06/06/18 09:59 Dose: 20 meq Tamsulosin HCl (Flomax) 0.4 mg PO DAILY [facility] Last Admin: 06/06/18 10:00 Dose: 0.4 mg - Labs Labs: 06/06/18 10:15 06/06/18 10:15 PT 17.3 SECONDS (9.4-12.5) H 06/06/18 10:15 INR 1.49 06/06/18 10:15 APTT 25.5 Seconds (25.1-36.5) 06/06/18 10:15 - Constitutional Appears: Well, Non-toxic, No Acute Distress - Extremities Exam Additional comments: B/L LE focused exam: Vasc: DP/PT pulses 2/4 b/l. Cap refill > 3 seconds to all digits. Skin temperature warm to warm from proximal to distal. Severe b/l lymphedema noted b/l Neuro: Couldn't be done. Patient is incooperative Derm: RLE - Healed ulcerations. Diffuse dermal changes (hyperpigmentation and lichnification). No signs of infections LLE- three 0.5 cm x 0.5 cm x 0.1 venous stasis ulceration noted to anterior leg and to posterior leg. No erythema, no malodor, no other clinical signs of infection. Moderate serous drainage noted to site. Base is fibrogranular. Diffuse dermal changes (hyperpigmentation and lichnification). MSK: Unable to assess pain on palpation, Muscle power Couldn't be assessed. Patient is incooperative No other gross deformities noted - Neurological Exam Neurological Exam: Alert, Awake - Psychiatric Exam Psychiatric exam: Normal Affect, Normal Mood Assessment and Plan - Assessment and Plan (Free Text) Assessment: 63 y/o M patient seen and evaluated at the bed side for b/l massive LE edema,stasis ulcers in his legs. Plan: Patient seen and evaluated at the bedside with Dr. Byers Chart, labs and vitals reviewed; Afebrile, WBCs 4.9 patient dressing changed - applied maxorb, and DSD with stockinette to cover Podiatry will follow up the patient while in house. <Mynor Byers - Last Filed: 06/10/18 12:08> Objective - Vital Signs/Intake and Output Vital Signs (last 24 hours): Temp Pulse Resp BP Pulse Ox 98 F 73 20 120/67 97 06/10/18 07:55 06/10/18 07:55 06/10/18 07:55 06/10/18 11:57 06/10/18 07:55 Intake and Output: 06/10/18 06/10/18 06:59 18:59 Output Total 1200 Balance -1200 - Medications Medications: Current Medications Acetaminophen (Tylenol 325mg Tab) 650 mg PO Q4H PRN PRN Reason: pain and fever Acetaminophen (Tylenol 325mg Tab) 650 mg PO Q6 PRN PRN Reason: TEMP>=99.5F Acetaminophen (Tylenol 650 Mg Supp) 650 mg RC Q6H PRN PRN Reason: TEMP>=99.5F Albuterol/Ipratropium (Duoneb 3 Mg/0.5 Mg (3 Ml) Ud) 3 ml IH Q2H PRN PRN Reason: Shortness of Breath Alprazolam (Xanax) 0.25 mg PO BID [facility]; Protocol Stop: 06/16/18 18:01 Last Admin: 06/10/18 11:57 Dose: 0.25 mg Alprazolam (Xanax) 0.25 mg PO HS [facility] Stop: 06/16/18 22:01 Last Admin: 06/09/18 21:21 Dose: 0.25 mg Aspirin (Aspirin Chewable) 81 mg PO DAILY [facility] Last Admin: 06/10/18 11:58 Dose: 81 mg Atorvastatin Calcium (Lipitor) 40 mg PO HS [facility] Last Admin: 06/09/18 21:18 Dose: 40 mg Cholecalciferol (Vitamin D) 2,000 intlu PO DAILY [facility] Last Admin: 06/10/18 11:55 Dose: 2,000 intlu Ciprofloxacin (Cipro) 500 mg PO Q12 [facility]; Protocol Stop: 06/10/18 17:30 Last Admin: 06/10/18 11:55 Dose: 500 mg Diphenhydramine HCl (Benadryl) 25 mg PO Q8H PRN PRN Reason: Allergy symptoms Divalproex Sodium (Depakote Sprinkles) 125 mg PO BID [facility]; Protocol Last Admin: 06/10/18 11:56 Dose: 125 mg Enoxaparin Sodium (Lovenox) 60 mg SC Q12H [facility]; Protocol Stop: 06/11/18 12:00 Last Admin: 06/10/18 00:14 Dose: 60 mg Furosemide (Lasix) 40 mg IVP Q12 [facility] Last Admin: 06/10/18 11:57 Dose: 40 mg Haloperidol (Haldol) 0.5 mg PO Q6 PRN; Protocol PRN Reason: Agitation Last Admin: 06/10/18 11:57 Dose: 0.5 mg Ceftazidime/Avibactam 1.25 gm/ (Sodium Chloride) 100 mls @ 50 mls/hr IVPB Q8H [facility]; Protocol Stop: 06/15/18 17:46 Last Admin: 06/10/18 11:58 Dose: 50 mls/hr Levalbuterol HCl (Xopenex) 0.63 mg IH [id number] [facility] Last Admin: 06/10/18 07:17 Dose: 0.63 mg Levothyroxine Sodium (Synthroid) 25 mcg PO DAILY [facility] Last Admin: 06/10/18 11:56 Dose: 25 mcg Lorazepam (Ativan) 0.5 mg PO Q4H PRN; Protocol PRN Reason: Agitation Last Admin: 06/09/18 10:16 Dose: 0.5 mg Losartan Potassium (Cozaar) 100 mg PO DAILY [facility] Last Admin: 06/10/18 12:03 Dose: 100 mg Metoprolol Tartrate (Lopressor) 50 mg PO BID [facility] Last Admin: 06/10/18 11:55 Dose: 50 mg Multivitamins (Thera Tab) 1 tab PO DAILY [facility] Last Admin: 06/10/18 12:03 Dose: 1 tab Ondansetron HCl (Zofran Inj) 4 mg IVP Q4H PRN PRN Reason: Nausea/Vomiting Pantoprazole Sodium (Protonix Ec Tab) 40 mg PO ACB [facility] Last Admin: 06/10/18 11:57 Dose: 40 mg Potassium Chloride (K-Dur 20 Meq Er Tab) 20 meq PO DAILY [facility] Last Admin: 06/10/18 11:56 Dose: 20 meq Tamsulosin HCl (Flomax) 0.4 mg PO DAILY [facility] Last Admin: 06/10/18 11:58 Dose: 0.4 mg - Labs Labs: 06/09/18 06:45 06/09/18 06:45 PT 13.5 SECONDS (9.4-12.5) H 06/09/18 06:45 INR 1.17 06/09/18 06:45 APTT 27.0 Seconds (25.1-36.5) 06/09/18 06:45 Attending/Attestation - Attestation I have personally seen and examined this patient.: Yes I have fully participated in the care of the patient.: Yes I have reviewed all pertinent clinical information, including history, physical exam and plan: Yes
[2018-06-07] MEDS: Cefepime 1gm in NS 100ml 1 GM/100 ML BAG IVPB SCH (18:05)
[2018-06-07] MEDS ORDERED: DiphenhydrAMINE 50 mg/ml Inj IVP STA (21:53)
[2018-06-08] MEDS: Levalbuterol 0.63 MG/3 ML Inhal Soln UD IH SCH ×4 (02:32→20:15)
[2018-06-08] MEDS: Cefepime 1gm in NS 100ml 1 GM/100 ML BAG IVPB SCH ×2 (02:43→14:34)
[2018-06-08] MEDS ORDERED: Amikacin 500 MG in Dextrose 5% In Water 100 ML IVPB ONE (10:30)
[2018-06-08] MEDS ORDERED: Piperacillin/Tazobact 2.25gm 2.25 GM/100 ML BAG IVPB SCH (12:00)
[2018-06-08] MEDS: Levothyroxine 25 MCG TAB PO SCH (14:44)
[2018-06-08] MEDS: Multivitamin Therapeutic Tab PO SCH (14:45)
[2018-06-08] MEDS: Oxycodone/Acetaminophen 5/325 mg Tab PO PRN (14:45)
[2018-06-08] MEDS: Potassium Chloride 20 mEq ER Tab PO SCH (14:46)
[2018-06-08] MEDS: Cholecalciferol 1,000 INTLU TAB PO SCH (14:46)
[2018-06-08] MEDS: Pantoprazole 40 mg EC Tab PO SCH (14:51)
--- NOTE | 2018-06-08 17:52 | CP.PCM.CON ---
History of Present Illness - History of Present Illness History of Present Illness: 63 year old male with PMH of chronic systolic CHF with EF 25%, chronic atrial fibrillation, chronic lymphedema with chronic venous stasis, COPD, HTN, history of gastric bypass surgery, history of left knee surgery, right leg infected ve nous stasis ulcers, obstructive sleep apnea, right leg venous stasis ulcers history with previous growth of MRSA and Pseudomonas, history of CVA with residual aphasia came in to [facility] because of hematuria and blood coming from the urethral meatus 2 days after he had a Chacon catheter exchanged at his U rologist's office. He was apparently given Keflex after the procedure. There is no note of fevers, no vomiting, no diarrhea. Full ROS is difficult to obtain because the patient has aphasia. Infectious Diseases consult is requested to further evaluate and manage. Review of Systems - Review of Systems All systems: reviewed and no additional remarkable complaints except (as per HPI) Past Patient History - Infectious Disease Hx of Infectious Diseases: None - Tetanus Immunizations Tetanus Immunization: Unknown - Past Medical History & Family History Past Medical History?: Yes - Past Social History Smoking Status: Never Smoked - CARDIAC Hx Cardiac Disorders: Yes Hx Hypertension: Yes - PULMONARY Hx Chronic Obstructive Pulmonary Disease (COPD): Yes - NEUROLOGICAL HX Cerebrovascular Accident: Yes - HEENT Other/Comment: Aphasia - RENAL Hx Chronic Kidney Disease: Yes - ENDOCRINE/METABOLIC Hx Endocrine Disorders: Yes Hx Hypothyroidism: Yes - HEMATOLOGICAL/ONCOLOGICAL Hx Blood Transfusions: No Hx Blood Transfusion Reaction: No - INTEGUMENTARY Hx Dermatological Problems: Yes (CELLULITIS TO LOWER EXTREMITY) - MUSCULOSKELETAL/RHEUMATOLOGICAL Hx Arthritis: Yes Hx Falls: Yes Hx Osteoarthritis: Yes - GASTROINTESTINAL Hx Gastroesophageal Reflux: Yes - GENITOURINARY/GYNECOLOGICAL Hx Genitourinary Disorders: Yes Other/Comment: HX: URINARY RETENTION ->CHACON CATH. - PSYCHIATRIC Hx Depression: Yes - SURGICAL HISTORY Hx Surgeries: Yes - ANESTHESIA Hx Anesthesia Reactions: No Hx Malignant Hyperthermia: No Meds Home Medications: Home Medication List Medication Instructions Recorded Confirmed Type Apixaban [Eliquis] 2.5 mg PO BID #60 tab 06/07/18 Rx Allergies/Adverse Reactions: Allergies Allergy/AdvReac Type Severity Reaction Status Date / Time No Known Allergies Allergy Verified 12/31/16 13:16 - Medications Medications: Current Medications Acetaminophen (Tylenol 325mg Tab) 650 mg PO Q4H PRN PRN Reason: pain and fever Acetaminophen (Tylenol 325mg Tab) 650 mg PO Q6 PRN PRN Reason: TEMP>=99.5F Acetaminophen (Tylenol 650 Mg Supp) 650 mg RC Q6H PRN PRN Reason: TEMP>=99.5F Albuterol/Ipratropium (Duoneb 3 Mg/0.5 Mg (3 Ml) Ud) 3 ml IH Q2H PRN PRN Reason: Shortness of Breath Aspirin (Aspirin Chewable) 81 mg PO DAILY [facility] Last Admin: 06/07/18 10:59 Dose: 81 mg Atorvastatin Calcium (Lipitor) 40 mg PO HS [facility] Last Admin: 06/07/18 22:01 Dose: 40 mg Cholecalciferol (Vitamin D) 2,000 intlu PO DAILY [facility] Last Admin: 06/07/18 10:00 Dose: 2,000 intlu Furosemide (Lasix) 40 mg IVP Q12 [facility] Last Admin: 06/07/18 22:00 Dose: Not Given Haloperidol (Haldol) 0.5 mg PO Q6 PRN; Protocol PRN Reason: Agitation Cefepime HCl (Maxipime 1gm) 1 gm in 100 mls @ 100 mls/hr IVPB Q12 [facility]; Protocol Last Admin: 06/08/18 02:43 Dose: Not Given Levalbuterol HCl (Xopenex) 0.63 mg IH [id number] [facility] Last Admin: 06/08/18 08:07 Dose: Not Given Levothyroxine Sodium (Synthroid) 25 mcg PO DAILY [facility] Last Admin: 06/07/18 10:00 Dose: 25 mcg Lorazepam (Ativan) 0.5 mg PO Q6 PRN; Protocol PRN Reason: Agitation Last Admin: 06/08/18 04:01 Dose: 0.5 mg Losartan Potassium (Cozaar) 100 mg PO DAILY [facility] Last Admin: 06/07/18 10:00 Dose: 100 mg Metoprolol Tartrate (Lopressor) 50 mg PO BID [facility] Last Admin: 06/07/18 17:56 Dose: 50 mg Multivitamins (Thera Tab) 1 tab PO DAILY [facility] Last Admin: 06/07/18 10:55 Dose: 1 tab Ondansetron HCl (Zofran Inj) 4 mg IVP Q4H PRN PRN Reason: Nausea/Vomiting Oxycodone/Acetaminophen (Percocet 5/325 Mg Tab) 1 tab PO Q6H PRN PRN Reason: Pain, severe (8-10) Stop: 06/09/18 17:01 Last Admin: 06/06/18 23:39 Dose: 1 tab Pantoprazole Sodium (Protonix Ec Tab) 40 mg PO ACB [facility] Last Admin: 06/07/18 08:06 Dose: 40 mg Potassium Chloride (K-Dur 20 Meq Er Tab) 20 meq PO DAILY [facility] Last Admin: 06/07/18 10:00 Dose: 20 meq Tamsulosin HCl (Flomax) 0.4 mg PO DAILY [facility] Last Admin: 06/07/18 10:00 Dose: 0.4 mg Physical Exam - Constitutional Appears: Chronically Ill - Head Exam Head Exam: NORMAL INSPECTION - Neck Exam Neck exam: Negative for: Meningismus - Respiratory Exam Respiratory Exam: Decreased Breath Sounds - Cardiovascular Exam Cardiovascular Exam: +S1, +S2 - GI/Abdominal Exam GI & Abdominal Exam: Soft. absent: Tenderness Results - Vital Signs Recent Vital Signs: Last Vital Signs Temp 87 F L 06/08/18 06:00 Pulse 80 06/08/18 06:00 Resp 20 06/08/18 06:00 BP 126/82 06/08/18 06:00 Pulse Ox 98 06/08/18 06:00 - Labs Result Diagrams: 06/06/18 10:15 06/06/18 10:15 Assessment & Plan - Assessment and Plan (Free Text) Plan: Assessment consider complicated UTI with multidrug-resistant Klebsiella in this patient with Chacon catheter use history of right leg infected venous stasis ulcers, with MRSA and Pseudomonas acute CVA with right sided weakness and residual aphasia S/P tPA infusion history of left lower extremity skin and skin structure infection with Klebsiella and MRSA in a patient with chronic venous stasis ulcers with no evidence of abscess or osteomyelitis on MRI, clinically improving Probable CHF exacerbation chronic systolic CHF with EF 25% chronic atrial fibrillation chronic lymphedema with chronic venous stasis COPD HTN history of gastric bypass surgery history of left knee surgery Plan gave 1 dose of Amikacin but now the lab is reporting that the Klebsiella is sensitive to Avycaz - will use Avycaz instead (renally-adjusted) initial urine cx showed Enterococcus and Klebsiella but subsequent one showed o nly the Klebsiella (Enterococcus probable contaminant then since it did not persist) will monitor clinically
[2018-06-08] MEDS: DiphenhydrAMINE 50 mg/ml Inj IVP PRN (19:00)
--- NOTE | 2018-06-09 01:28 | PN ---
DATE: 06/08/2018 SUBJECTIVE: The patient is seen lying in the bed in room 568, bed 1. The patient was seen with the patient's nurse. According to the patient's nurse, the patient has been agitated, yelling and screaming. Has not been cooperative. The patient's is also not answering on the phone. The patient was scheduled for cystoscopy today which was canceled by the anesthesiologist. The patient was seen lying in the bed. PHYSICAL EXAMINATION: VITAL SIGNS: T-max 97.8 to 97.5; heart rate 80, 88; blood pressure 126/82, 150/89, 126/82, 124/82; respiration is 20. O2 sat is 96%-98%. Intake and output, output is 1400 today. Yesterday's output not documented. HEENT: Head: Normocephalic, atraumatic. HEENT examination shows pinkish conjunctivae. Anicteric sclerae. No oropharyngeal lesion. No neck rigidity. CHEST: Kyphosis. LUNGS: Examination shows decreased breath sound at the bases. CARDIOVASCULAR: Examination shows S1, S2, irregular rhythm. ABDOMEN: Morbidly obese. Positive surgical scar of the gastric bypass. GENITALIA: Male. Positive Sevilla catheter. EXTREMITIES: Lower extremity shows positive lymphedema of the lower extremity. Positive Kameron wraps. MUSCULOSKELETAL: Examination shows a body mass index of 58.2. PSYCHIATRIC: The patient has dysarthria and speech difficulty. DIAGNOSTIC DATA: From 06/08, none. All data from the time of admission was reviewed, all diagnostic data. CONSULTATION: Reviewed from the time of hospitalization. IMPRESSION: 1. Gross hematuria. 2. 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 3. Right hemiparesis. 4. Super morbid obesity with elevated body mass index of 58.2. 5. Questionable behavioral disorder. 6. Atrial fibrillation. 7. History of severe noncompliance and poor compliance. 8. Normocytic anemia. 9. Thrombocytopenia. 10. Granulocytosis. 11. Acute kidney injury with underlying chronic kidney disease stage III. 12. History of hypothyroidism. 13. Multidrug resistance Klebsiella pneumoniae urinary tract infection, sensitive to Avycaz and colistin. 14. Gait dysfunction. 15. Morbid obesity. 16. Bilateral lower extremity lymphedema and chronic venous stasis ulceration of the lower extremity. 17. Age indeterminate septal infarct. 18. Status post attempted suprapubic cystostomy, failed 19. Deconditioning. 20. Questionable behavioral disorder with episodic uncooperativeness, yelling and screaming. 21. Dysarthria with some expressive aphasia. 22. Bilateral lower extremity stasis ulceration. 23. Anticoagulation treated chronic atrial fibrillation. 24. History of cortical cerebral infarct with right hemiparesis, expressive aphasia, dysarthria. 25. Impulsive aggressive behavior disorder. PLAN: At this time, the patient seen by Infectious Disease. The patient has been ordered repeat labs. The patient was attempted to cysto today, but canceled by Anesthesia which will be reattempted by the urologist again later in the next day or so. Current Consultation: Urology, Cardiology, Infectious Disease, Neurology, Podiatry and Psychiatry. The patient's case referred to [facility]. TCU evaluation. CURRENT MEDICATIONS: The patient was given 1 day of amikacin 500 mg. The patient is on aspirin 81 mg daily. The patient is on an Ativan 0.5 mg p.o. every 4 hours p.r.n. The patient Avycaz 1.25 g IV every 8. The patient is started on Benadryl 25 IV every 8 hours p.r.n. The patient is on Cozaar 100 mg daily, DuoNeb nebulizer every 2 hours p.r.n., Flomax 0.4 mg daily. The patient is started on Haldol 0.5 mg p.o. every 6 hours p.r.n. The patient is on K-Dur 20 mEq p.o. daily, Lasix 40 IV every 12, Lipitor 40 mg at bedtime, Lopressor 50 mg twice a day, Percocet 5/325 1 tablet every 6 p.r.n., Protonix 40 mg daily, Synthroid 25 mcg daily, multivitamin 1 tablet daily, Tylenol 650 mg p.o. suppository every 6 p.r.n., vitamin D3 2000 international daily, Xopenex 0.63 mg every 6 hours, Zofran 4 mg IV every 4 p.r.n. PA chest x-ray ordered. Heart-healthy diet, out of bed, physical therapy, occupational therapy, SCDs ordered. Patient's is on Ativan 0.5 mg p.o. every 4 hours p.r.n. The patient is also on Benadryl 25 mg IV every 8 hours p.r.n. for agitation. The patient is also started on Haldol 0.5 mg p.o. every 6 hours p.r.n. by psychiatrist for agitation. At present, the patient was seen by the physical therapist yesterday. According to the physical therapy notes which was communicated through the nurses, the patient was found by the Physical Therapy to be unsafe for discharge and the patient's discharge was canceled. The patient was found to be unsteady, unable to take steps forward. The patient was found to be high risk for fall. Physical Therapy recommended the patient is unsafe for discharge and Physical Therapy has recommended subacute rehab for the patient's discharge options. At present, the patient will be continued on the above therapeutic intervention. The patient's further management will be dependent upon the patient's clinical condition, hemodynamic status and as per the patient's response to therapeutic intervention, as per the patient's diagnostic test results and as per recommendation by all the physicians involved in the care of the patient. Dictated and electronically signed, not read. Rashad Brown MD
[2018-06-09] MEDS: Levalbuterol 0.63 MG/3 ML Inhal Soln UD IH SCH ×4 (05:00→20:58)
--- NOTE | 2018-06-09 07:13 | CP.PCM.PN ---
Subjective - Date & Time of Evaluation Date of Evaluation: 06/09/18 Time of Evaluation: 07:10 - Subjective Subjective: PGY-2 medicine progress note for Dr Brown Overnight patient was frustrated and agitated (smacking himself in the head) - he refused the CXR - ativan was given. Today patient appears comfortable, did not appear to be in distress. Has expressive aphasia thus cannot express himself completely but can understand my commands - replied by nodding or shaking head. Denied being in pain. Objective - Vital Signs/Intake and Output Vital Signs (last 24 hours): Temp Pulse Resp BP Pulse Ox 97.5 F L 88 20 126/76 95 06/08/18 14:00 06/08/18 19:00 06/08/18 14:00 06/09/18 01:24 06/08/18 14:00 Intake and Output: 06/09/18 06/09/18 06:59 18:59 Intake Total 120 Output Total 300 Balance -180 - Medications Medications: Current Medications Acetaminophen (Tylenol 325mg Tab) 650 mg PO Q4H PRN PRN Reason: pain and fever Acetaminophen (Tylenol 325mg Tab) 650 mg PO Q6 PRN PRN Reason: TEMP>=99.5F Acetaminophen (Tylenol 650 Mg Supp) 650 mg RC Q6H PRN PRN Reason: TEMP>=99.5F Albuterol/Ipratropium (Duoneb 3 Mg/0.5 Mg (3 Ml) Ud) 3 ml IH Q2H PRN PRN Reason: Shortness of Breath Aspirin (Aspirin Chewable) 81 mg PO DAILY [facility] Last Admin: 06/08/18 14:46 Dose: 81 mg Atorvastatin Calcium (Lipitor) 40 mg PO HS [facility] Last Admin: 06/08/18 22:37 Dose: Not Given Cholecalciferol (Vitamin D) 2,000 intlu PO DAILY [facility] Last Admin: 06/08/18 14:46 Dose: 2,000 intlu Diphenhydramine HCl (Benadryl) 25 mg IVP Q8H PRN PRN Reason: Allergy symptoms Last Admin: 06/08/18 19:00 Dose: 25 mg Furosemide (Lasix) 40 mg IVP Q12 [facility] Last Admin: 06/09/18 01:24 Dose: 40 mg Haloperidol (Haldol) 0.5 mg PO Q6 PRN; Protocol PRN Reason: Agitation Last Admin: 06/08/18 14:47 Dose: 0.5 mg Ceftazidime/Avibactam 1.25 gm/ (Sodium Chloride) 100 mls @ 50 mls/hr IVPB Q8H [facility]; Protocol Stop: 06/15/18 17:46 Last Admin: 06/09/18 02:53 Dose: 50 mls/hr Levalbuterol HCl (Xopenex) 0.63 mg IH [id number] [facility] Last Admin: 06/09/18 05:00 Dose: Not Given Levothyroxine Sodium (Synthroid) 25 mcg PO DAILY [facility] Last Admin: 06/08/18 14:44 Dose: 25 mcg Lorazepam (Ativan) 0.5 mg PO Q4H PRN; Protocol PRN Reason: Agitation Last Admin: 06/09/18 00:57 Dose: 0.5 mg Losartan Potassium (Cozaar) 100 mg PO DAILY [facility] Last Admin: 06/08/18 14:48 Dose: 100 mg Metoprolol Tartrate (Lopressor) 50 mg PO BID [facility] Last Admin: 06/08/18 19:00 Dose: 50 mg Multivitamins (Thera Tab) 1 tab PO DAILY [facility] Last Admin: 06/08/18 14:45 Dose: 1 tab Ondansetron HCl (Zofran Inj) 4 mg IVP Q4H PRN PRN Reason: Nausea/Vomiting Oxycodone/Acetaminophen (Percocet 5/325 Mg Tab) 1 tab PO Q6H PRN PRN Reason: Pain, severe (8-10) Stop: 06/09/18 17:01 Last Admin: 06/08/18 14:45 Dose: 1 tab Pantoprazole Sodium (Protonix Ec Tab) 40 mg PO ACB [facility] Last Admin: 06/08/18 14:51 Dose: 40 mg Potassium Chloride (K-Dur 20 Meq Er Tab) 20 meq PO DAILY [facility] Last Admin: 06/08/18 14:46 Dose: 20 meq Tamsulosin HCl (Flomax) 0.4 mg PO DAILY [facility] Last Admin: 06/08/18 14:47 Dose: 0.4 mg - Labs Labs: 06/06/18 10:15 06/06/18 10:15 PT 17.3 SECONDS (9.4-12.5) H 06/06/18 10:15 INR 1.49 06/06/18 10:15 APTT 25.5 Seconds (25.1-36.5) 06/06/18 10:15 - Additional Findings Additional findings: - Constitutional Appears: Well, Non-toxic, No Acute Distress - Head Exam Head Exam: NORMAL INSPECTION, NORMOCEPHALIC - Eye Exam Eye Exam: EOMI, Normal appearance - ENT Exam ENT Exam: Mucous Membranes Moist, Normal Exam - Neck Exam Neck exam: Positive for: Normal Inspection - Respiratory Exam Respiratory Exam: Clear to Auscultation Bilateral, NORMAL BREATHING PATTERN - Cardiovascular Exam Cardiovascular Exam: REGULAR RHYTHM, +S1, +S2 - GI/Abdominal Exam GI & Abdominal Exam: Soft. absent: Tenderness - Exam Additional comments: Dried blood noted around urethral meatus. No active bleeding noted muniz in place with muniz bag. No external drainage noted - Extremities Exam Extremities exam: Positive for: normal inspection. Negative for: calf tenderness - Back Exam Back exam: NORMAL INSPECTION - Neurological Exam Neurological exam: CN II-XII Intact - Psychiatric Exam Psychiatric exam: Normal Affect, Normal Mood - Skin Skin Exam: Dry, Warm Assessment and Plan - Assessment and Plan (Free Text) Plan: 63 y/o M w/ h/o CVA with expressive aphasia, atrial fibrillation (on Eliquis), Pulmonary HTN, s/p failed suprapubic catheter insertion and urinary incontinence, obesity, HTN, renal insufficiency, and chronic lymphedema, presenting to the ED for urethral bleeding: Urethral Bleeding -Hgb stable throughout admission -Consult urology, Dr Mauricio Nance * Cystoscopy scheduled for 06/08 was cancelled due to anesthesiologist not being able to perform procedure -Muniz placed and reinforced to leg as patient occasionally pulls on muniz -Tamsulosin 0.4mg po qd -Percocet 5/325 po q6h prn Multi-Drug Resistant UTI -Consult ID, Dr Valdes * gave 1 dose of Amikacin but now the lab is reporting that the Klebsiella is sensitive to Avycaz - will use Avycaz instead (renally-adjusted) -Ur Cx 06/05 growing multi-drug resistant klebsiella pneumoniae -Ceftazidime/Avibactam [Avycaz] 1.25g ivpb q8h started 06/08 Agitation -Patient occasionally agitated, refusing CXR, seen by RN smacking himself in frustration -Consult Psychiatry, Dr Saldana * Patient deferred to be seen by psychiatry. * He is not suicidal and denies thoughts to harm others. Delusions or paranoia were not elicited. * At this time psychiatry will respect patient's wishes and sign off. -Haloperidol 0.5mg po q6h prn -Lorazepam 0.5mg po q4h prn Hx of CVA w/ Residual Expressive Aphasia -Consult Neuro, Dr Hendricks * For stroke prevention, can continue with Aspirin 81 mg. * Hold off on Eliquis in setting of urethral bleeding. -Speech Therapist * Ok to continue regular consistency diet w/ thin liquids -Aspirin 81mg po qd -Lipitor 40mg po hs AFib -Consult Cardio, Dr Andres -Holding home eliquis / to uretheral bleed -Metoprolol Tartrate 50mg po bid Severe Pulmonary HTN -Consult Cardio, Dr Andres * Moderate to increased risk for any anesthesia Stasis Ulcer B/L LE Chronic Lymphedema B/L LE -Consult Podiatry, Dr Sebastian * Patient dressing changed 06/08 - applied maxorb, and DSD with stockinette to cover -Monitor for infection as patient has history of right leg infected venous stasis ulcers, with MRSA and Pseudomonas -Furosemide 40mg ivp q12h -Elevate edematous areas COPD -Levalbuterol 0.63mg ih q6h -Duoneb 3ml ih q2h prn HTN -Losartan 100mg po qd PPX -Protonix 40mg po qd -Potassium 20meq po qd -OT/PT/ST
[2018-06-09 07:25] LABS: BASO # 0.01 K/mm3 (0.0-2.0); BASO % 0.2 % (0.0-3.0); EOS # 0.1 (0.0-0.7); EOS % 1.9 % (1.5-5.0); GRAN # 3.85 (1.4-6.5); GRAN % 67.4 % (50.0-68.0); HEMOGLOBIN 12.9 g/dL (14.0-18.0); LYMPH # 1.3 (1.2-3.4); LYMPH % 23.1 % (22.0-35.0); MEAN CELL VOLUME 91.8 fl (80.0-105.0); MEAN CORPUSCULAR HEMOGLOBIN 30.9 pg (25.0-35.0); MEAN CORPUSCULAR HGB CONC 33.7 g/dl (31.0-37.0); MONO # 0.4 (0.1-0.6); MONO % 7.4 % (1.0-6.0); RBC 4.17 10^6/uL (3.5-6.1); RED CELL DISTRIBUTION WIDTH 13.3 % (11.5-14.5); WHITE BLOOD COUNT 5.7 10^3/ul (4.5-11.0)
[2018-06-09 07:34] LABS: INR 1.17; PROTHROMBIN TIME 13.5 SECONDS (9.4-12.5)
[2018-06-09] MEDS: Levothyroxine 25 MCG TAB PO SCH ×2 (08:06→09:50)
[2018-06-09] MEDS: Pantoprazole 40 mg EC Tab PO SCH (08:06)
[2018-06-09 08:12] LABS: ALBUMIN 3.4 g/dL (3.0-4.8); BILIRUBIN,DIRECT 0.4 mg/dL (0.0-0.4); CALCIUM 8.8 mg/dL (8.4-10.5)
--- NOTE | 2018-06-09 08:31 | DS ---
FINAL PROGRESS NOTE AND DISCHARGE SUMMARY HISTORY OF PRESENT ILLNESS: The patient is seen lying in the bed in room 568, bed 1. The patient is comfortable. The patient does not appear to be in any distress. The patient is lying flat, in no distress. The patient has some expressive aphasia and dysarthria. Overnight nurse's notes were reviewed. The patient's suprapubic cystostomy placement plan and testing and procedures were canceled by Dr. Nance. PHYSICAL EXAMINATION: VITAL SIGNS: T-max 98.3, pulse 72, blood pressure 117/64, respirations 20, O2 sat 96%. HEENT: Head examination normocephalic, atraumatic. HEENT examination shows pink conjunctivae. Anicteric sclerae. No oropharyngeal lesion. NECK: Short and supple. CHEST: Kyphosis. LUNGS: Shows decreased breath sound at the bases. CARDIOVASCULAR: Shows S1, S2, irregular rhythm. Positive systolic murmur, left sternal border, right second intercostal space, left second intercostal space. ABDOMEN: Morbidly obese. GENITALIA: Male. EXTREMITIES: Positive lymphedema and the Kameron wraps noted of the lower extremity. MUSCULOSKELETAL: Shows a body mass index of 59. NEUROLOGICAL: The patient is alert, awake, responsive, dysarthric. DIAGNOSTICS: On 06/07/2018, none. IMPRESSION AND PLAN: 1. Gross hematuria (resolved). 2. Urethral bleeding with gross hematuria. 3. Voiding dysfunction. 4. History of cerebral infarct with mild right hemiparesis. 5. Neurogenic bladder with voiding dysfunction. 6. Status post unsuccessful suprapubic cystostomy placement. 7. Super morbid obesity. 8. Neurogenic bladder. 9. Urinary retention. 10. Mild receptive cognitive deficits with moderate expressive language deficit and moderate dysarthria and oral verbal apraxia secondary to cerebrovascular accident. 11. Hypertension. 12. Super morbid obesity with elevated body mass index of 58. 13. History of gastric bypass surgery. 14. Bilateral lower extremity lymphedema. 15. Normocytic anemia. 16. Thrombocytopenia. 17. Acute kidney injury with underlying chronic kidney disease stage 3. 18. History of hypothyroidism. 19. Questionable urinary tract infection with proteinuria, ketonuria, microscopic hematuria, pyuria, bacteriuria. 20. Bilateral lower extremity lymphedema. 21. Bilateral lower extremity venous stasis ulceration, chronic. 22. History of gastric bypass surgery. 23. History of former alcohol and nicotine use. 24. Chronic atrial fibrillation, anticoagulation dependent. 25. Cxdacqet-ki-iratur pulmonary hypertension with right ventricular systolic pressure of 60 mmHg and moderate tricuspid regurgitation. 26. Left ventricular ejection fraction of 50%. 27. Borderline dilated right ventricle. 28. Moderately reduced right ventricular systolic function. 29. Moderately dilated left and right atrium. 30. Moderate tricuspid regurgitation with severe pulmonary hypertension with right ventricular systolic pressure of 60 mmHg. 31. Hematuria. 32. Bilateral lower extremity venous stasis. 33. Gait dysfunction. 34. History of cerebrovascular infarct with right-sided weakness. Plan at this time, since the patient is not scheduled for any urological intervention, the patient has been requested to be discharged after cleared by Urology with discharge followup with Dr. Brown, Dr. Jae Nance, Dr. Sebastian within 1 week. Discharge medications as per updated ambulatory orders plus new scripts. The patient's case was referred to [facility]NA, home health aide, home PT upon discharge. DISCHARGE MEDICATIONS: Tylenol p.r.n., DuoNeb nebulizer as needed, Lac-Hydrin lotion, Eliquis decreased to 2.5 mg twice a day, Ecotrin 81 mg daily, Lipitor 40 mg at bedtime, vitamin D3 at 2000 International Units daily, Lasix 80 mg twice a day, Synthroid 25 mcg daily, Linzess 290 mcg daily p.r.n., Cozaar 100 mg daily, Lopressor 50 mg twice a day, Protonix 40 mg daily, K-Dur 20 mEq daily and Flomax 0.4 mg daily. The patient at this time has been ordered to be discharged home after cleared by Urology with the above discharge recommendation. The patient is to follow up with Dr. Nance for outpatient elective suprapubic cystostomy placement. Withholding Eliquis 24-48 hours prior to procedure. At present, the patient is to be awaiting discharge. The patient's family has met with the Assembling Fabricator, Case Management. The patient's family has been updated about the patient's condition, diagnoses, treatment plan, management plan and overall guarded to poor prognosis. Time spent in the discharge process 45 minutes. Dictated and electronically signed, not read. Rashad Brown MD Psychiatric # [id number]
[2018-06-09] MEDS: Cholecalciferol 1,000 INTLU TAB PO SCH (10:16)
[2018-06-09] MEDS: Potassium Chloride 20 mEq ER Tab PO SCH (10:17)
[2018-06-09] MEDS: DiphenhydrAMINE 50 mg/ml Inj IVP PRN (11:07)
--- NOTE | 2018-06-09 11:44 | PN ---
DATE: 06/08/2018 SUBJECTIVE: See previous dictated notes from 06/06/2018 and 06/05/2018. The patient is currently resting comfortably. The urine is cleared via the Sevilla catheter. The past medical and surgical is otherwise unchanged. The patient is currently off the Eliquis. From Urology standpoint, he had been back on it. We are planning to do the procedure this (see my plans at the end). The remainder of the medications as noted. ALLERGIES: . PHYSICAL EXAMINATION: GENERAL: Well-nourished, well-developed, currently resting comfortably. Body habitus is noted. ABDOMEN: Overall soft. No gross distention. No evidence of rebound or guarding. His pannus is noted and body habitus noted. GENITOURINARY: He has a normal phallus without discharge. No testicular masses. Sevilla catheter in place draining clear yellow urine. DIAGNOSES: Urinary retention, voiding dysfunction, urgency, frequency, much catheter discomfort. He has a mixed component of both a neurogenic bladder and also BPH. See plans listed below. Meaning is he has multifactorial bladder problems. He also does not like the Sevilla catheter. It is very uncomfortable for his penis. Further, it is difficult for him because he has expressive aphasia where he would like to speak more, but it is very difficult. He gets very agitated very easily unfortunately. The assessment and plan further is as follows, Today, we were going to try to insert a suprapubic catheter. We were also going on try on 06/06/2018. Again, today the anesthesiologist who was previously again is very concerned about doing this procedure particularly on the weekend. He said his body habitus with his neck and intubation could be very, very difficult without any backup. So, we are going to postpone it. We are not going to do it today. This is a very challenging situation. The patient gets frustrated easily and screams and yells, just to add to frustration. It is difficult for the to manage the patient. Perhaps, social insurance analyst can step in and give further recommendations. From Urology standpoint, we are unable to do the procedure today. The plan is as follows, In summary, a very pleasant gentleman, 63-year-old with multiple medical issues. We need more medical clearance and backup prior to the procedure. I discussed with the . I made temporary arrangements for this . That is not an emergency from Urology standpoint. The urine is clear and as long as he does not pull on the catheter, the urine stays clear. The only time that changes is when he pulls on the catheter and even then, there is no urine in the bag, it is just blood on the side of the penis. Next to the catheter, but there is not blood directly in the bag. So from Urology standpoint, he is cleared for discharge from Urology standpoint. When I told this to the , I also understand and explained that I am in agreement that she is not able to take care of him by herself. She is not able to provide transportation, perhaps may be the social workers. Today is 06/08/2018, tomorrow is 06/09/2018, which will be a Saturday, perhaps the social workers are able to further help the patient and they are making arrangements for transportation. So, as of this minute, he is scheduled for [facility] at about 10:30 in the morning. She feels this may be a little bit too early. So, we will have to discuss what to do. But in the meantime, we were not comfortable collectively as a team from a medical standpoint to risk any damage to do this procedure, especially in light of the fact that previously we had attempted to insert a suprapubic catheter and we were unsuccessful. This is mostly because he was light with anesthesia and the bladder could not be distended greatly. I would like to have him with the deepest anesthesia possible that is medically safe and then, we can distend his bladder more and try to get the suprapubic catheter. Again, given his body habitus and overall condition, we are postponing this today. So the Urology diagnoses then is urinary retention, voiding dysfunction, neurogenic bladder and gross hematuria. The Urology plan is to maintain Sevilla catheter. Then, we would arrange for outpatient. We will have to discuss the timing, location, etc., but most of that is a Social Work issue. I have also explained to the patient and we are very sympathetic to the difficulty that she is having. We will see what else we can do to be helpful. Jae Nance MD [facility] # [id number]
--- NOTE | 2018-06-09 12:56 | PN ---
DATE: 06/09/2018 CARDIOLOGY FOLLOWUP SUBJECTIVE: The patient is without distress. PHYSICAL EXAMINATION: VITAL SIGNS: Blood pressure is 147/91, heart rate is in the 80s, atrial fibrillation. NECK: Negative JVD. LUNGS: Without rales. HEART: Reveal S1, S2. EXTREMITIES: Without edema. DATA: Hemoglobin is 12.9. Chemistries: BUN and creatinine 26 and 1.5. IMPRESSION: 1. Hematuria, which is now resolved, off Eliquis. 2. Chronic atrial fibrillation. 3. History of cerebrovascular accidents in the past. 4. History of hypertension and hypercholesterolemia. Given these findings, the patient has urologic procedure scheduled for . Prior to the procedure, I would like to start him on subcu Lovenox to help protect him from recurrent CVA from his atrial fibrillation. We will discuss this with Dr. Brown. Oscar Andres MD
[2018-06-09] MEDS: Enoxaparin 60 mg Syringe SC SCH (13:08)
--- NOTE | 2018-06-09 13:15 | RAD ---
Date of service: 06/09/2018 HISTORY: CHF COMPARISON: 02/20/2018 TECHNIQUE: Chest PA and lateral FINDINGS: LUNGS: No active pulmonary disease. PLEURA: No significant pleural effusion identified. No pneumothorax apparent. CARDIOVASCULAR: Normal. OSSEOUS STRUCTURES: No significant abnormalities. VISUALIZED UPPER ABDOMEN: Normal. OTHER FINDINGS: None. IMPRESSION: No active disease.
--- NOTE | 2018-06-09 14:49 | PN ---
DATE: 06/08/2018 UROLOGY PROGRESS NOTE See previous note from . We had fed the patient this morning breakfast. We then kept him n.p.o with the hope to add him on a schedule now this afternoon. It is currently about 05:00 p.m. Due to secondary, I have been here since about 03:00 p.m., due to scheduling difficulties and other emergencies, we are not able to do it. Now, probably later than 06:00 p.m. or 07:00 p.m. After speaking to the anesthesiologist and given his medical condition, we are not going to do it on Saturday evening. With very little back up and staff, we are not going to do any procedures. PAST MEDICAL AND SURGICAL HISTORY: As listed on the chart, multiple CVAs, multiple medical issues. All these have been dictated previously and notes as per Dr. Brown. MEDICATIONS: See chart. ALLERGIES: SEE CHART. I just want to make a note on one of the medication, Eliquis. He is holding it for now. PHYSICAL EXAMINATION: GENERAL: Well-nourished male. His body habitus is noted. VITAL SIGNS: Noted. ABDOMEN: Overall soft. There is no evidence of rebound, guarding or distention. Sevilla catheter has been placed, draining clear yellow urine. There is a slight blood tinge next to the catheter. When the patient gets agitated, sometimes there is blood on the side, but there is no blood in the bag right now. Diagnosis is voiding dysfunction, neurogenic bladder, urinary retention and gross hematuria. ASSESSMENT AND PLAN: In summary, more accurate, a very pleasant gentleman, 63 years old, with multiple medical issues. Discussed with anesthesiologist. Again, we were hoping to do this a little bit earlier, but for scheduling reasons and emergencies, we are not able to. As mentioned, I have been there since about 03:00 p.m. It is about 05:00 now. We will not get started before 6:30 to 7:00. On the Saturday night with just the whole team, staff. I explained to the apologetically that I am not able to do it, but we previously tried even and I need the optimal situation for the patient's benefit before just writing him anesthesia, which will be deep anesthesia so that we can distend the bladder more. It is a difficult suprapubic patient's body habitus as noted, pannus as noted. So at this point, we are going to resume his diet and not do anything and again I apologetically spoke to the . I also explained from the Urology standpoint, at this point I now made arrangements to do this procedure next week on 06/12/2018. We are going to plan for doing the procedure. It is scheduled for 10:30 in the morning. From Urology standpoint, he is cleared for discharge in four weeks, urine is clear. Yes if he gets agitated, sometimes there is blood on the side, but it is most likely from irritation to the prostate when pulling on it. When he is not agitated, Sevilla catheter is clear yellow urine. At that time, also we are planning for a cystoscopy just to rule out any other lesions. We have careful for any underlying malignancy given his whole history. From urology standpoint, he is cleared for discharge. I did speak to the for a while, because of social note, it is very difficult for her. Further plans need to be worked out. PLAN: 1. Maintain his Sevilla. 2. Clear for discharge. 3. We had arranged for outpatient. Regarding the other points of component of the social aspect of the patient is that is having difficulty with transportation and travel and other things of that sort. Perhaps again this is now Saturday afternoon, 06/06/2018, perhaps as the patient is still in the hospital depending on his clinical course on 06/09/2018. Perhaps, Social Workers can help arrange for transportation. I explained to the patient we will do this procedure both either in [facility] or [facility] [place] if that helps him in anyway for transportation or other issues. For the timing of the procedure, again his [id number] has to help father, mother, everybody in this very difficult situation. From Urology standpoint, our recommendations and plan as follows: 1. Maintain Sevilla. 2. Suprapubic catheter. We also discussed other options. Further plans will follow. Jae Nance MD [facility] # [id number]
[2018-06-09] MEDS: Multivitamin Therapeutic Tab PO SCH (15:24)
[2018-06-09] MEDS: Divalproex 125 mg EC Sprinkle Cap PO SCH (17:52)
--- NOTE | 2018-06-09 18:00 | CP.PCM.PN ---
<Loly Watts - Last Filed: 06/09/18 17:57> Subjective - Date & Time of Evaluation Date of Evaluation: 06/09/18 Time of Evaluation: 17:57 - Subjective Subjective: Podiatry progress note for Dr. Sebastian: 63 yo male patient, seen and evaluated at bedside for bilateral edema and hyperpigmentation to bilateral lower extremities. Patient is accompanied by his at bedside. Patient denies any N/V/F/SOB/CP. Denies any other pedal complaints at this time. Objective - Vital Signs/Intake and Output Vital Signs (last 24 hours): Temp Pulse Resp BP Pulse Ox 97.9 F 86 20 130/84 96 06/09/18 06:00 06/09/18 17:53 06/09/18 06:00 06/09/18 17:53 06/09/18 06:00 Intake and Output: 06/09/18 06/09/18 06:59 18:59 Intake Total 120 Output Total 300 Balance -180 - Medications Medications: Current Medications Acetaminophen (Tylenol 325mg Tab) 650 mg PO Q4H PRN PRN Reason: pain and fever Acetaminophen (Tylenol 325mg Tab) 650 mg PO Q6 PRN PRN Reason: TEMP>=99.5F Acetaminophen (Tylenol 650 Mg Supp) 650 mg RC Q6H PRN PRN Reason: TEMP>=99.5F Albuterol/Ipratropium (Duoneb 3 Mg/0.5 Mg (3 Ml) Ud) 3 ml IH Q2H PRN PRN Reason: Shortness of Breath Alprazolam (Xanax) 0.25 mg PO BID REPLACED BY [facility]; Protocol Stop: 06/16/18 18:01 Last Admin: 06/09/18 17:52 Dose: 0.25 mg Alprazolam (Xanax) 0.25 mg PO HS REPLACED BY [facility] Stop: 06/16/18 22:01 Aspirin (Aspirin Chewable) 81 mg PO DAILY REPLACED BY [facility] Last Admin: 06/09/18 10:18 Dose: 81 mg Atorvastatin Calcium (Lipitor) 40 mg PO HS REPLACED BY [facility] Last Admin: 06/08/18 22:37 Dose: Not Given Cholecalciferol (Vitamin D) 2,000 intlu PO DAILY REPLACED BY [facility] Last Admin: 06/09/18 10:16 Dose: 2,000 intlu Ciprofloxacin (Cipro) 500 mg PO Q12 REPLACED BY [facility]; Protocol Stop: 06/10/18 17:30 Diphenhydramine HCl (Benadryl) 25 mg IVP Q8H PRN PRN Reason: Allergy symptoms Last Admin: 06/09/18 11:07 Dose: 25 mg Divalproex Sodium (Depakote Sprinkles) 125 mg PO BID REPLACED BY [facility]; Protocol Last Admin: 06/09/18 17:52 Dose: 125 mg Enoxaparin Sodium (Lovenox) 60 mg SC Q12H [facility]; Protocol Stop: 06/11/18 12:00 Last Admin: 06/09/18 13:08 Dose: 60 mg Furosemide (Lasix) 40 mg IVP Q12 [facility] Last Admin: 06/09/18 10:19 Dose: 40 mg Haloperidol (Haldol) 0.5 mg PO Q6 PRN; Protocol PRN Reason: Agitation Last Admin: 06/09/18 10:17 Dose: 0.5 mg Ceftazidime/Avibactam 1.25 gm/ (Sodium Chloride) 100 mls @ 50 mls/hr IVPB Q8H REPLACED BY [facility]; Protocol Stop: 06/15/18 17:46 Last Admin: 06/09/18 10:23 Dose: 50 mls/hr Levalbuterol HCl (Xopenex) 0.63 mg IH A5IORAV REPLACED BY [facility] Last Admin: 06/09/18 13:34 Dose: Not Given Levothyroxine Sodium (Synthroid) 25 mcg PO DAILY REPLACED BY [facility] Last Admin: 06/09/18 09:50 Dose: Not Given Lorazepam (Ativan) 0.5 mg PO Q4H PRN; Protocol PRN Reason: Agitation Last Admin: 06/09/18 10:16 Dose: 0.5 mg Losartan Potassium (Cozaar) 100 mg PO DAILY REPLACED BY [facility] Last Admin: 06/09/18 13:09 Dose: 100 mg Metoprolol Tartrate (Lopressor) 50 mg PO BID REPLACED BY [facility] Last Admin: 06/09/18 17:53 Dose: 50 mg Multivitamins (Thera Tab) 1 tab PO DAILY REPLACED BY [facility] Last Admin: 06/09/18 15:24 Dose: 1 tab Ondansetron HCl (Zofran Inj) 4 mg IVP Q4H PRN PRN Reason: Nausea/Vomiting Pantoprazole Sodium (Protonix Ec Tab) 40 mg PO ACB REPLACED BY [facility] Last Admin: 06/09/18 08:06 Dose: 40 mg Potassium Chloride (K-Dur 20 Meq Er Tab) 20 meq PO DAILY REPLACED BY [facility] Last Admin: 06/09/18 10:17 Dose: 20 meq Tamsulosin HCl (Flomax) 0.4 mg PO DAILY REPLACED BY [facility] Last Admin: 06/09/18 10:16 Dose: 0.4 mg - Labs Labs: 06/09/18 06:45 06/09/18 06:45 PT 13.5 SECONDS (9.4-12.5) H 06/09/18 06:45 INR 1.17 06/09/18 06:45 APTT 27.0 Seconds (25.1-36.5) 06/09/18 06:45 - Constitutional Appears: Well, Non-toxic, No Acute Distress - Head Exam Head Exam: ATRAUMATIC, NORMOCEPHALIC - Extremities Exam Additional comments: Vasc: DP/PT pulses 2/4 b/l. Cap refill > 3 seconds to all digits. Skin temperature warm to warm from proximal to distal. +2 edema noted to bilateral lower extremity Neuro: Unable to assess Ortho: Patient able to move digits, no tenderness to palpation upon dressing changes Derm: Diffuse dermal change, hyperpigmentation and lichenification noted to bilateral extremities, no open lesions, no erythema, no purulence, no clinical signs of infection. - Neurological Exam Neurological Exam: Alert, Awake, Oriented x3 - Psychiatric Exam Psychiatric exam: Normal Affect, Normal Mood Assessment and Plan - Assessment and Plan (Free Text) Assessment: 63 y/o M patient seen and evaluated at the bed side for b/l massive LE edema,stasis ulcers in his legs. Plan: Patient seen and evaluated at the bedside with Dr. Sebastian Chart, labs and vitals reviewed; Afebrile, absent leukocytosis Lotion applied to bilateral lower extremities; bilateral lower extremities left open to air Multipodus boots ordered for bilateral lower extremities Podiatry will follow up the patient while in house. <Anusha Sebastian - Last Filed: 06/15/18 18:18> Objective - Vital Signs/Intake and Output Vital Signs (last 24 hours): Temp Pulse Resp BP Pulse Ox 98.3 F 65 18 106/67 95 06/15/18 08:23 06/15/18 11:17 06/15/18 08:23 06/15/18 11:17 06/15/18 08:23 Intake and Output: 06/15/18 06/15/18 06:59 18:59 Intake Total 620 120 Output Total 100 Balance 520 120 - Labs Labs: 06/13/18 06:00 06/13/18 06:00 PT 13.5 SECONDS (9.4-12.5) H 06/09/18 06:45 INR 1.17 06/09/18 06:45 APTT 27.0 Seconds (25.1-36.5) 06/09/18 06:45 Attending/Attestation - Attestation I have personally seen and examined this patient.: Yes I have fully participated in the care of the patient.: Yes I have reviewed all pertinent clinical information, including history, physical exam and plan: Yes
--- NOTE | 2018-06-09 23:14 | CP.PCM.PN ---
Subjective - Date & Time of Evaluation Date of Evaluation: 06/09/18 Time of Evaluation: 12:05 - Subjective Subjective: No fevers, not in distress. Objective - Vital Signs/Intake and Output Vital Signs (last 24 hours): Temp Pulse Resp BP Pulse Ox 97.9 F 86 20 137/83 96 06/09/18 06:00 06/09/18 17:53 06/09/18 06:00 06/09/18 21:18 06/09/18 06:00 Intake and Output: 06/09/18 06/10/18 18:59 06:59 Intake Total 540 Output Total 200 Balance 340 - Medications Medications: Current Medications Acetaminophen (Tylenol 325mg Tab) 650 mg PO Q4H PRN PRN Reason: pain and fever Acetaminophen (Tylenol 325mg Tab) 650 mg PO Q6 PRN PRN Reason: TEMP>=99.5F Acetaminophen (Tylenol 650 Mg Supp) 650 mg RC Q6H PRN PRN Reason: TEMP>=99.5F Albuterol/Ipratropium (Duoneb 3 Mg/0.5 Mg (3 Ml) Ud) 3 ml IH Q2H PRN PRN Reason: Shortness of Breath Alprazolam (Xanax) 0.25 mg PO BID [facility]; Protocol Stop: 06/16/18 18:01 Last Admin: 06/09/18 17:52 Dose: 0.25 mg Alprazolam (Xanax) 0.25 mg PO HS [facility] Stop: 06/16/18 22:01 Last Admin: 06/09/18 21:21 Dose: 0.25 mg Aspirin (Aspirin Chewable) 81 mg PO DAILY [facility] Last Admin: 06/09/18 10:18 Dose: 81 mg Atorvastatin Calcium (Lipitor) 40 mg PO HS [facility] Last Admin: 06/09/18 21:18 Dose: 40 mg Cholecalciferol (Vitamin D) 2,000 intlu PO DAILY [facility] Last Admin: 06/09/18 10:16 Dose: 2,000 intlu Ciprofloxacin (Cipro) 500 mg PO Q12 [facility]; Protocol Stop: 06/10/18 17:30 Last Admin: 06/09/18 21:18 Dose: 500 mg Diphenhydramine HCl (Benadryl) 25 mg IVP Q8H PRN PRN Reason: Allergy symptoms Last Admin: 06/09/18 11:07 Dose: 25 mg Divalproex Sodium (Depakote Sprinkles) 125 mg PO BID [facility]; Protocol Last Admin: 06/09/18 17:52 Dose: 125 mg Enoxaparin Sodium (Lovenox) 60 mg SC Q12H [facility]; Protocol Stop: 06/11/18 12:00 Last Admin: 06/09/18 13:08 Dose: 60 mg Furosemide (Lasix) 40 mg IVP Q12 [facility] Last Admin: 06/09/18 21:18 Dose: 40 mg Haloperidol (Haldol) 0.5 mg PO Q6 PRN; Protocol PRN Reason: Agitation Last Admin: 06/09/18 10:17 Dose: 0.5 mg Ceftazidime/Avibactam 1.25 gm/ (Sodium Chloride) 100 mls @ 50 mls/hr IVPB Q8H [facility]; Protocol Stop: 06/15/18 17:46 Last Admin: 06/09/18 20:09 Dose: 50 mls/hr Levalbuterol HCl (Xopenex) 0.63 mg IH [id number] [facility] Last Admin: 06/09/18 20:58 Dose: Not Given Levothyroxine Sodium (Synthroid) 25 mcg PO DAILY [facility] Last Admin: 06/09/18 09:50 Dose: Not Given Lorazepam (Ativan) 0.5 mg PO Q4H PRN; Protocol PRN Reason: Agitation Last Admin: 06/09/18 10:16 Dose: 0.5 mg Losartan Potassium (Cozaar) 100 mg PO DAILY [facility] Last Admin: 06/09/18 13:09 Dose: 100 mg Metoprolol Tartrate (Lopressor) 50 mg PO BID [facility] Last Admin: 06/09/18 17:53 Dose: 50 mg Multivitamins (Thera Tab) 1 tab PO DAILY [facility] Last Admin: 06/09/18 15:24 Dose: 1 tab Ondansetron HCl (Zofran Inj) 4 mg IVP Q4H PRN PRN Reason: Nausea/Vomiting Pantoprazole Sodium (Protonix Ec Tab) 40 mg PO ACB [facility] Last Admin: 06/09/18 08:06 Dose: 40 mg Potassium Chloride (K-Dur 20 Meq Er Tab) 20 meq PO DAILY [facility] Last Admin: 06/09/18 10:17 Dose: 20 meq Tamsulosin HCl (Flomax) 0.4 mg PO DAILY [facility] Last Admin: 06/09/18 10:16 Dose: 0.4 mg - Labs Labs: 06/09/18 06:45 06/09/18 06:45 PT 13.5 SECONDS (9.4-12.5) H 06/09/18 06:45 INR 1.17 06/09/18 06:45 APTT 27.0 Seconds (25.1-36.5) 06/09/18 06:45 - Constitutional Appears: Chronically Ill - Head Exam Head Exam: NORMAL INSPECTION - Respiratory Exam Respiratory Exam: Decreased Breath Sounds - Cardiovascular Exam Cardiovascular Exam: +S1, +S2 - GI/Abdominal Exam GI & Abdominal Exam: Soft. absent: Tenderness Assessment and Plan - Assessment and Plan (Free Text) Plan: Assessment consider complicated UTI with multidrug-resistant Klebsiella in this patient with Sevilla catheter use history of right leg infected venous stasis ulcers, with MRSA and Pseudomonas acute CVA with right sided weakness and residual aphasia S/P tPA infusion history of left lower extremity skin and skin structure infection with Klebsiella and MRSA in a patient with chronic venous stasis ulcers with no evidence of abscess or osteomyelitis on MRI, clinically improving Probable CHF exacerbation chronic systolic CHF with EF 25% chronic atrial fibrillation chronic lymphedema with chronic venous stasis COPD HTN history of gastric bypass surgery history of left knee surgery Plan gave 1 dose of Amikacin but now the lab is reporting that the Klebsiella is sensitive to Avycaz - will use Avycaz instead (renally-adjusted) -day 2 of up to 7 days initial urine cx showed Enterococcus and Klebsiella but subsequent one showed only the Klebsiella (Enterococcus probable contaminant then since it did not persist) will continue to monitor clinically
[2018-06-10] MEDS: Enoxaparin 60 mg Syringe SC SCH ×2 (00:14→14:17)
--- NOTE | 2018-06-10 02:44 | CON ---
DATE: 06/09/2018 HISTORY OF PRESENT ILLNESS: The patient has multiple medical issues including history of CVA. The patient experienced expressive aphasia. The patient also has history of failed suprapubic catheter and many more medical issues including asthma, morbid obesity, CHF, AFib, hypertension, renal insufficiency, chronic lymphedema. The patient was admitted on the medical site for evaluation of urinary incontinence and bleeding around Sevilla catheter. Psych consult was called for evaluation of episodes of agitation and trying to smack himself. The patient was seen and examined, discussed with the family. As per medical team notes, the patient experiences agitation whenever he cannot express himself. The patient's son is next to the patient and seems to be a good historian. The patient does not have history of depression in the past. Whenever the patient feels frustrated and not able to express himself, has episodes of agitation and trying to hit himself in the face or in chest. Family is in the process of obtaining power of molder fitting over the patient. The patient's [id number], Mandy De Los Santos seems to be the one who will be taking care of the patient's medical decision, who is going to help the patient to make medical decisions. Her phone number is [phone]. Discussed with the patient's family about possible possibility to start mood stabilizer as well as anxiolytics. The patient's family agreed with that. This software writer also educated the patient about plan. The patient nodded his head. The patient seems to be able to give yes or no answers or shake his head. The patient denied being depressed. The patient denied thoughts of killing himself or others, but the patient seems to be agitated whenever he cannot express himself. Vital signs reviewed. Temperature 97.6, pulse is 86, blood pressure 130/84, respirations 20, oxygen saturation is 96. Medications reviewed. The patient is on Tylenol, DuoNeb, Xanax 0.25 mg twice a day and at the nighttime will be given to the patient just to relax and calm down. The patient is on ciprofloxacin, Benadryl, Depakote 125 mg twice a day, Lovenox. The patient was started on haloperidol as needed, started by Dr. Aguilar. The patient is on the following medications: Synthroid, Ativan, Cozaar, Lopressor, Zofran, Protonix, K-Dur and Flomax. This software writer will hold haloperidol if needed as the patient does not require this medication. MENTAL STATUS EXAMINATION: The patient presented to be comfortable during the interview, but as per nursing staff report, the patient has episodes of agitation whenever he cannot express himself. The patient was able to give only yes or no answers and the patient denied any thoughts of harming himself or others and the patient denied thoughts of killing himself. Insight and judgment seems to be limited. Impulses are unpredictable. IMPRESSION: Agitation due to neurological deficit and when the patient is not able to express himself, rule out delirium. PLAN: This software writer started Depakote as well as Xanax. Dr. Aguilar started haloperidol. Discussed with the patient's family. We will follow up and advise accordingly. Hopefully, the patient will start feeling better. Should you have any questions, give me a call back. This software writer reviewed previous history as well as lab results. Thank you very much for letting me participate in the care of your patient. Shana Esposito MD MTDJosé Luis
[2018-06-10] MEDS: Levalbuterol 0.63 MG/3 ML Inhal Soln UD IH SCH ×4 (04:34→19:21)
--- NOTE | 2018-06-10 09:34 | CP.PCM.PN ---
Subjective - Date & Time of Evaluation Date of Evaluation: 06/10/18 Time of Evaluation: 09:25 - Subjective Subjective: PGY-2 medicine progress note for Dr Brown No acute events noted overnight. Patient was calm and cooperative. No distress noted. He was AAOx3. Noted wound dressings on lower extremities clean/dry/intact. Denied pain or discomfort. Objective - Vital Signs/Intake and Output Vital Signs (last 24 hours): Temp Pulse Resp BP Pulse Ox 98 F 73 20 106/61 97 06/10/18 07:55 06/10/18 07:55 06/10/18 07:55 06/10/18 07:55 06/10/18 07:55 Intake and Output: 06/10/18 06/10/18 06:59 18:59 Output Total 1200 Balance -1200 - Medications Medications: Current Medications Acetaminophen (Tylenol 325mg Tab) 650 mg PO Q4H PRN PRN Reason: pain and fever Acetaminophen (Tylenol 325mg Tab) 650 mg PO Q6 PRN PRN Reason: TEMP>=99.5F Acetaminophen (Tylenol 650 Mg Supp) 650 mg RC Q6H PRN PRN Reason: TEMP>=99.5F Albuterol/Ipratropium (Duoneb 3 Mg/0.5 Mg (3 Ml) Ud) 3 ml IH Q2H PRN PRN Reason: Shortness of Breath Alprazolam (Xanax) 0.25 mg PO BID [facility]; Protocol Stop: 06/16/18 18:01 Last Admin: 06/09/18 17:52 Dose: 0.25 mg Alprazolam (Xanax) 0.25 mg PO HS [facility] Stop: 06/16/18 22:01 Last Admin: 06/09/18 21:21 Dose: 0.25 mg Aspirin (Aspirin Chewable) 81 mg PO DAILY [facility] Last Admin: 06/09/18 10:18 Dose: 81 mg Atorvastatin Calcium (Lipitor) 40 mg PO HS [facility] Last Admin: 06/09/18 21:18 Dose: 40 mg Cholecalciferol (Vitamin D) 2,000 intlu PO DAILY [facility] Last Admin: 06/09/18 10:16 Dose: 2,000 intlu Ciprofloxacin (Cipro) 500 mg PO Q12 [facility]; Protocol Stop: 06/10/18 17:30 Last Admin: 06/09/18 21:18 Dose: 500 mg Diphenhydramine HCl (Benadryl) 25 mg IVP Q8H PRN PRN Reason: Allergy symptoms Last Admin: 06/09/18 11:07 Dose: 25 mg Divalproex Sodium (Depakote Sprinkles) 125 mg PO BID [facility]; Protocol Last Admin: 06/09/18 17:52 Dose: 125 mg Enoxaparin Sodium (Lovenox) 60 mg SC Q12H [facility]; Protocol Stop: 06/11/18 12:00 Last Admin: 06/10/18 00:14 Dose: 60 mg Furosemide (Lasix) 40 mg IVP Q12 [facility] Last Admin: 06/09/18 21:18 Dose: 40 mg Haloperidol (Haldol) 0.5 mg PO Q6 PRN; Protocol PRN Reason: Agitation Last Admin: 06/09/18 10:17 Dose: 0.5 mg Ceftazidime/Avibactam 1.25 gm/ (Sodium Chloride) 100 mls @ 50 mls/hr IVPB Q8H [facility]; Protocol Stop: 06/15/18 17:46 Last Admin: 06/10/18 01:59 Dose: 50 mls/hr Levalbuterol HCl (Xopenex) 0.63 mg IH [id number] [facility] Last Admin: 06/10/18 07:17 Dose: 0.63 mg Levothyroxine Sodium (Synthroid) 25 mcg PO DAILY [facility] Last Admin: 06/09/18 09:50 Dose: Not Given Lorazepam (Ativan) 0.5 mg PO Q4H PRN; Protocol PRN Reason: Agitation Last Admin: 06/09/18 10:16 Dose: 0.5 mg Losartan Potassium (Cozaar) 100 mg PO DAILY [facility] Last Admin: 06/09/18 13:09 Dose: 100 mg Metoprolol Tartrate (Lopressor) 50 mg PO BID [facility] Last Admin: 06/09/18 17:53 Dose: 50 mg Multivitamins (Thera Tab) 1 tab PO DAILY [facility] Last Admin: 06/09/18 15:24 Dose: 1 tab Ondansetron HCl (Zofran Inj) 4 mg IVP Q4H PRN PRN Reason: Nausea/Vomiting Pantoprazole Sodium (Protonix Ec Tab) 40 mg PO ACB [facility] Last Admin: 10/01/18 08:06 Dose: 40 mg Potassium Chloride (K-Dur 20 Meq Er Tab) 20 meq PO DAILY [facility] Last Admin: 06/09/18 10:17 Dose: 20 meq Tamsulosin HCl (Flomax) 0.4 mg PO DAILY [facility] Last Admin: 06/09/18 10:16 Dose: 0.4 mg - Labs Labs: 06/09/18 06:45 06/09/18 06:45 PT 13.5 SECONDS (9.4-12.5) H 06/09/18 06:45 INR 1.17 06/09/18 06:45 APTT 27.0 Seconds (25.1-36.5) 06/09/18 06:45 - Additional Findings Additional findings: - Constitutional Appears: Well, Non-toxic, No Acute Distress - Head Exam Head Exam: NORMAL INSPECTION, NORMOCEPHALIC - Eye Exam Eye Exam: EOMI, Normal appearance - ENT Exam ENT Exam: Mucous Membranes Moist, Normal Exam - Neck Exam Neck exam: Positive for: Normal Inspection - Respiratory Exam Respiratory Exam: Clear to Auscultation Bilateral, NORMAL BREATHING PATTERN - Cardiovascular Exam Cardiovascular Exam: REGULAR RHYTHM, +S1, +S2 - GI/Abdominal Exam GI & Abdominal Exam: Soft. absent: Tenderness - Exam Additional comments: Dried blood noted around urethral meatus. No active bleeding noted muniz in place with muniz bag. No external drainage noted - Extremities Exam Extremities exam: Positive for: normal inspection. Negative for: calf tenderness - Back Exam Back exam: NORMAL INSPECTION - Neurological Exam Neurological exam: CN II-XII Intact - Psychiatric Exam Psychiatric exam: Normal Affect, Normal Mood - Skin Skin Exam: Dry, Warm Assessment and Plan - Assessment and Plan (Free Text) Plan: 63 y/o M w/ h/o CVA with expressive aphasia, atrial fibrillation (on Eliquis), Pulmonary HTN, s/p failed suprapubic catheter insertion and urinary incontinence, obesity, HTN, renal insufficiency, and chronic lymphedema, presenting to the ED for urethral bleeding: Urethral Bleeding Urinary Retention -Hgb stable throughout admission -Retention 2/2 neurogenic bladder -Consult urology, Dr Mauricio Nance * Urologic procedure scheduled for 06/08 was cancelled due to anesthesiologist not being able to perform procedure * Rescheduled for 06/12 -Muniz placed and reinforced to leg as patient occasionally pulls on muniz -Tamsulosin 0.4mg po qd -Percocet 5/325 po q6h prn Multi-Drug Resistant UTI -Consult ID, Dr Valdes * gave 1 dose of Amikacin but now the lab is reporting that the Klebsiella is sensitive to Avycaz - will use Avycaz instead (renally-adjusted) -Ur Cx 06/05 growing multi-drug resistant klebsiella pneumoniae -Ceftazidime/Avibactam [Avycaz] 1.25g ivpb q8h started 06/08 Agitation -Patient occasionally agitated, refusing CXR, seen by RN smacking himself in frustration -Consult Psychiatry, Dr Saldana * Agitation due to neurological deficit, rule out delirium -Haloperidol 0.5mg po q6h prn -Lorazepam 0.5mg po q4h prn -Alprazolam 0.25mg po bid and hs -Divalproex 125mg po bid Hx of CVA w/ Residual Expressive Aphasia -Consult Neuro, Dr Hendricks * For stroke prevention, can continue with Aspirin 81 mg. * Hold off on Eliquis in setting of urethral bleeding. -Speech Therapist * Ok to continue regular consistency diet w/ thin liquids -Aspirin 81mg po qd -Lipitor 40mg po hs AFib -Consult Cardio, Dr Andres * Prior to procedure (scheduled for 06/12) start subcutaneous Lovenox -Holding home eliquis / to uretheral bleed -Metoprolol Tartrate 50mg po bid -Lovenox 60mg sc q12h (stop date 06/11 at 12:00) Severe Pulmonary HTN -Consult Cardio, Dr Andres * Moderate to increased risk for any anesthesia Stasis Ulcer B/L LE Chronic Lymphedema B/L LE -Consult Podiatry, Dr Sebastian * Patient dressing changed 06/08 - applied maxorb, and DSD with stockinette to cover -Monitor for infection as patient has history of right leg infected venous stasis ulcers, with MRSA and Pseudomonas -Furosemide 40mg ivp q12h -Elevate edematous areas COPD -Levalbuterol 0.63mg ih q6h -Duoneb 3ml ih q2h prn HTN -Losartan 100mg po qd PPX -Protonix 40mg po qd -Potassium 20meq po qd -OT/PT/ST
--- NOTE | 2018-06-10 10:45 | PN ---
DATE: 06/09/2018 SUBJECTIVE: The patient was seen in room 568, bed 1. The patient is lying in the bed. According to the nurses and the nurses' notes, the patient has been having episodic screaming and yelling. The patient's has been attempted to be contacted, but the patient's is not picking up the phone according to the overnight nurses' notes. The patient was attempting to pull his Sevilla. No bleeding was noted. The patient persisted with expressive aphasia and dysarthria. PHYSICAL EXAMINATION: VITAL SIGNS: T-max 98; pulse 86, 88; blood pressure 147/91; respirations 20; O2 sat is 95-97%. GENERAL: The patient is seen lying in the bed in room 568, bed 1. The patient is awake, responsive. HEENT: Head examination normocephalic, atraumatic. HEENT examination shows pink conjunctivae, anicteric sclerae. No oropharyngeal lesion. No neck rigidity. CHEST: Kyphosis. LUNGS: Shows no rales, crackles or wheezing. Decreased breath sound at the bases, left more than the right. CARDIOVASCULAR: S1 and S2. Irregular rhythm. Positive systolic murmur, left sternal border, right second intercostal space, left second intercostal space. ABDOMEN: Morbidly obese. Positive gastric bypass surgical scar. GENITALIA: Male. Positive Sevilla catheter. EXTREMITY: Shows positive lymphedema, positive Kameron wrap. MUSCULOSKELETAL: Shows a body mass index of 44. NEUROLOGICAL: The patient is alert, awake, responsive. Has dysarthria and expressive aphasia. Gait examination is not tested. DIAGNOSTICS: On 06/09/2018, hemoglobin and hematocrit 12.9 and 38.3, platelet 136. PT, PTT 13.5 and 27. Sodium 140, potassium 4, chloride 108, CO2 of 24, anion gap 13, BUN 26, creatinine 1.5, GFR 58, glucose 95, calcium 8.8, phosphorus 3.3, magnesium 2.1. LFTs are normal. Urine cultures are multidrug resistant Klebsiella pneumoniae, ,which is sensitive to Avycaz and colistin and Amikacin. The patient's chest x-ray from 06/09/2018 was reviewed, which was clear lung saini. IMPRESSION AND PLAN: 1. Hematuria. 2. Agitation due to neurological deficit. 3. History of cerebrovascular accident with right-sided hemiparesis. 4. Expressive aphasia, apraxia and dysarthria. 5. Voiding dysfunction. 6. Chronic lymphedema. 7. Voiding dysfunction. 8. Hypertension. 9. Receptive cognitive deficits with expressive language deficits and dysarthria and oral verbal apraxia. 10. Impulsive aggressive behavior. 11. Super morbid obesity with elevated body mass index of 44. 12. Atrial fibrillation. 13. Normocytic anemia. 14. Thrombocytopenia. 15. History of hypothyroidism. 16. Acute kidney injury with underlying chronic kidney disease stage 3. 17. Multidrug resistant Klebsiella pneumoniae urinary tract infection with proteinuria, hematuria, ketonuria, pyuria, bacteriuria. 18. Pulmonary hypertension. 19. Bilateral lower extremity lymphedema and venous stasis ulceration. 20. Complicated multidrug-resistant Klebsiella urinary tract infection. 21. Bilateral lower extremity massive lymphedema and stasis ulceration of the lower extremity. 22. Urinary retention. 23. Voiding dysfunction. 24. Possible neurogenic bladder. 25. Prostatic hypertrophy. 26. Congestive heart failure. 27. Hypovitaminosis D. 28. Anxiety disorder. Plan at this time, the patient was seen by Cardiology. The patient was seen by Podiatry. The patient was seen by Infectious Disease, Psychiatry, Infectious Disease, Urology. Their recommendations are noted. The patient is scheduled for urological procedure in next few days. The patient is currently on aspirin 81 mg p.o. daily, Ativan 0.5 mg p.o. every 4 hours p.r.n., Avycaz 1.25 g IV every 8 hours, Benadryl 25 mg IV every 8 hours p.r.n., Cozaar 100 mg daily, Depakote 125 mg twice a day, DuoNeb nebulizer every 2 hours p.r.n., Flomax 0.4 mg daily, Haldol 0.5 mg p.o. every 6 hours p.r.n., K-Dur 20 mEq daily, Lasix 40 mg IV every 12, Lipitor 40 mg daily, Lopressor 50 mg twice a day. The patient was seen by cattle trader, started on Lovenox 60 mg subcu every 12 for atrial fibrillation and risk prevention, Lovenox 60 mg subcu every 12, Protonix 40 mg daily, Synthroid 25 mcg daily, multivitamin 1 tablet daily, Tylenol 650 mg p.o. suppository every 6 p.r.n., vitamin D3 at 2000 International Units daily, Xanax 0.25 mg b.i.d., Xanax 0.25 at bedtime, Xopenex nebulizer 0.63 mg every 6 hours, Zofran 4 mg IV every 4 hours p.r.n. Incentive spirometry every 4 hours, oxygen 2 L, out of bed, occupational therapy, physical therapy, speech therapy, swallow evaluation ordered. At present, the patient is waiting for further urological intervention after which if the patient is cleared for discharged, the patient will be discharged to either rehab or home. If the patient is accepted to rehab versus the patient will be considered for discharge to TCU if accepted or the patient will be considered for discharge to subacute rehab versus acute rehab if accepted, otherwise the patient will be discharged home under the care of the patient's family if the patient is not accepted to TCU, subacute rehab or acute rehab. All of the above has been explained to the patient's and the family by multiple physicians and I have already spoken to the patient's on the day of admission and during the office visit about the patient's above needs. Dictated and electronically signed, not read. Rashad Brown MD
[2018-06-10] MEDS: Cholecalciferol 1,000 INTLU TAB PO SCH (11:55)
[2018-06-10] MEDS: Levothyroxine 25 MCG TAB PO SCH (11:56)
[2018-06-10] MEDS: Potassium Chloride 20 mEq ER Tab PO SCH (11:56)
[2018-06-10] MEDS: Divalproex 125 mg EC Sprinkle Cap PO SCH ×2 (11:56→18:06)
[2018-06-10] MEDS: Pantoprazole 40 mg EC Tab PO SCH (11:57)
[2018-06-10] MEDS: Multivitamin Therapeutic Tab PO SCH (12:03)
--- NOTE | 2018-06-10 15:35 | CP.PCM.PN ---
<Loly Watts - Last Filed: 06/10/18 15:31> Subjective - Date & Time of Evaluation Date of Evaluation: 06/10/18 Time of Evaluation: 15:31 - Subjective Subjective: Podiatry progress note for Dr. Byers: 63 yo male patient, seen and evaluated at bedside for bilateral lower extremity edema. Unable to assess pain level and further history due to patient status. Nursing states he is frustrated today due to his inability to communicate. Objective - Vital Signs/Intake and Output Vital Signs (last 24 hours): Temp Pulse Resp BP Pulse Ox 98 F 73 20 120/67 97 06/10/18 07:55 06/10/18 07:55 06/10/18 07:55 06/10/18 11:57 06/10/18 07:55 Intake and Output: 06/10/18 06/10/18 06:59 18:59 Output Total 1200 350 Balance -1200 -350 - Medications Medications: Current Medications Acetaminophen (Tylenol 325mg Tab) 650 mg PO Q4H PRN PRN Reason: pain and fever Acetaminophen (Tylenol 325mg Tab) 650 mg PO Q6 PRN PRN Reason: TEMP>=99.5F Acetaminophen (Tylenol 650 Mg Supp) 650 mg RC Q6H PRN PRN Reason: TEMP>=99.5F Albuterol/Ipratropium (Duoneb 3 Mg/0.5 Mg (3 Ml) Ud) 3 ml IH Q2H PRN PRN Reason: Shortness of Breath Alprazolam (Xanax) 0.25 mg PO BID [facility]; Protocol Stop: 06/16/18 18:01 Last Admin: 06/10/18 11:57 Dose: 0.25 mg Alprazolam (Xanax) 0.25 mg PO HS [facility] Stop: 06/16/18 22:01 Last Admin: 06/09/18 21:21 Dose: 0.25 mg Aspirin (Aspirin Chewable) 81 mg PO DAILY [facility] Last Admin: 06/10/18 11:58 Dose: 81 mg Atorvastatin Calcium (Lipitor) 40 mg PO HS [facility] Last Admin: 06/09/18 21:18 Dose: 40 mg Cholecalciferol (Vitamin D) 2,000 intlu PO DAILY [facility] Last Admin: 06/10/18 11:55 Dose: 2,000 intlu Ciprofloxacin (Cipro) 500 mg PO Q12 [facility]; Protocol Stop: 06/10/18 17:30 Last Admin: 06/10/18 11:55 Dose: 500 mg Diphenhydramine HCl (Benadryl) 25 mg PO Q8H PRN PRN Reason: Allergy symptoms Divalproex Sodium (Depakote Sprinkles) 125 mg PO BID [facility]; Protocol Last Admin: 06/10/18 11:56 Dose: 125 mg Furosemide (Lasix) 40 mg IVP Q12 [facility] Last Admin: 06/10/18 11:57 Dose: 40 mg Haloperidol (Haldol) 0.5 mg PO Q6 PRN; Protocol PRN Reason: Agitation Last Admin: 06/10/18 11:57 Dose: 0.5 mg Ceftazidime/Avibactam 1.25 gm/ (Sodium Chloride) 100 mls @ 50 mls/hr IVPB Q8H [facility]; Protocol Stop: 06/15/18 17:46 Last Admin: 06/10/18 11:58 Dose: 50 mls/hr Levalbuterol HCl (Xopenex) 0.63 mg IH [id number] [facility] Last Admin: 06/10/18 14:14 Dose: Not Given Levothyroxine Sodium (Synthroid) 25 mcg PO DAILY [facility] Last Admin: 06/10/18 11:56 Dose: 25 mcg Lorazepam (Ativan) 0.5 mg PO Q4H PRN; Protocol PRN Reason: Agitation Last Admin: 06/09/18 10:16 Dose: 0.5 mg Losartan Potassium (Cozaar) 100 mg PO DAILY [facility] Last Admin: 06/10/18 12:03 Dose: 100 mg Metoprolol Tartrate (Lopressor) 50 mg PO BID [facility] Last Admin: 06/10/18 11:55 Dose: 50 mg Multivitamins (Thera Tab) 1 tab PO DAILY [facility] Last Admin: 06/10/18 12:03 Dose: 1 tab Ondansetron HCl (Zofran Inj) 4 mg IVP Q4H PRN PRN Reason: Nausea/Vomiting Pantoprazole Sodium (Protonix Ec Tab) 40 mg PO ACB [facility] Last Admin: 06/10/18 11:57 Dose: 40 mg Potassium Chloride (K-Dur 20 Meq Er Tab) 20 meq PO DAILY [facility] Last Admin: 06/10/18 11:56 Dose: 20 meq Tamsulosin HCl (Flomax) 0.4 mg PO DAILY [facility] Last Admin: 06/10/18 11:58 Dose: 0.4 mg - Labs Labs: 06/09/18 06:45 06/09/18 06:45 PT 13.5 SECONDS (9.4-12.5) H 06/09/18 06:45 INR 1.17 06/09/18 06:45 APTT 27.0 Seconds (25.1-36.5) 06/09/18 06:45 - Constitutional Appears: Well, Non-toxic, No Acute Distress - Extremities Exam Additional comments: Vasc: DP/PT pulses 1/4 bilaterally, Cap refill > 3 seconds to all digits. Skin temperature warm to warm from proximal to distal. +2 edema noted to bilateral lower extremity Neuro: Unable to assess due to patient status Ortho: Patient does not express tenderness to palpation upon dressing changes Derm: Diffuse, circumfrential, hyperpigmentation and lichenification noted to bilateral lower extremities, no open lesions, no purulence, no clinical signs of infection - Neurological Exam Neurological Exam: Alert, Awake - Psychiatric Exam Psychiatric exam: Normal Affect, Normal Mood Assessment and Plan - Assessment and Plan (Free Text) Assessment: 63 y/o male patient seen and evaluated for bilateral lower extremity edema Plan: Patient seen and evaluated at the bedside with Dr. Byers Chart, labs and vitals reviewed; Afebrile, absent leukocytosis (10/2) B/L lower extremities cleaned with saline, lotion applied to bilateral lower extremities Bilateral lower extremities left open to air Multipodus boots to be worn at all times while in bed Podiatry will follow up the patient while in house. <Mynor Byers - Last Filed: 06/13/18 11:02> Objective - Vital Signs/Intake and Output Vital Signs (last 24 hours): Temp Pulse Resp BP Pulse Ox 97.4 F L 96 H 18 111/72 97 06/13/18 07:00 06/13/18 07:00 06/13/18 07:00 06/13/18 07:00 06/13/18 07:00 Intake and Output: 06/13/18 06/13/18 06:59 18:59 Intake Total 1480 Output Total 1400 Balance 80 - Medications Medications: Current Medications Acetaminophen (Tylenol 325mg Tab) 650 mg PO Q4H PRN PRN Reason: pain and fever Last Admin: 06/13/18 01:26 Dose: 650 mg Acetaminophen (Tylenol 325mg Tab) 650 mg PO Q6 PRN PRN Reason: TEMP>=99.5F Acetaminophen (Tylenol 650 Mg Supp) 650 mg RC Q6H PRN PRN Reason: TEMP>=99.5F Albuterol/Ipratropium (Duoneb 3 Mg/0.5 Mg (3 Ml) Ud) 3 ml IH Q2H PRN PRN Reason: Shortness of Breath Alprazolam (Xanax) 0.25 mg PO BID [facility]; Protocol Stop: 06/16/18 18:01 Last Admin: 06/12/18 17:16 Dose: 0.25 mg Alprazolam (Xanax) 0.25 mg PO HS [facility] Stop: 06/16/18 22:01 Last Admin: 06/12/18 22:46 Dose: 0.25 mg Apixaban (Eliquis) 2.5 mg PO BID [facility]; Protocol Last Admin: 06/12/18 17:15 Dose: 2.5 mg Aspirin (Aspirin Chewable) 81 mg PO DAILY [facility] Last Admin: 06/12/18 09:52 Dose: 81 mg Atorvastatin Calcium (Lipitor) 40 mg PO HS [facility] Last Admin: 06/12/18 22:46 Dose: 40 mg Cholecalciferol (Vitamin D) 2,000 intlu PO DAILY [facility] Last Admin: 06/12/18 09:51 Dose: 2,000 intlu Diphenhydramine HCl (Benadryl) 25 mg PO Q8H PRN PRN Reason: Allergy symptoms Last Admin: 06/12/18 22:46 Dose: 25 mg Divalproex Sodium (Depakote Sprinkles) 125 mg PO BID [facility]; Protocol Last Admin: 06/12/18 17:14 Dose: 125 mg Docusate Sodium (Colace) 100 mg PO TID [facility] Last Admin: 06/12/18 17:16 Dose: 100 mg Furosemide (Lasix) 40 mg IVP Q12 [facility] Last Admin: 06/12/18 22:47 Dose: 40 mg Ceftazidime/Avibactam 1.25 gm/ (Sodium Chloride) 100 mls @ 50 mls/hr IVPB Q8H [facility]; Protocol Stop: 06/15/18 17:46 Last Admin: 06/13/18 01:26 Dose: 50 mls/hr Levalbuterol HCl (Xopenex) 0.63 mg IH [id number] [facility] Last Admin: 06/13/18 07:08 Dose: Not Given Levothyroxine Sodium (Synthroid) 25 mcg PO DAILY [facility] Last Admin: 06/12/18 09:51 Dose: 25 mcg Losartan Potassium (Cozaar) 100 mg PO DAILY [facility] Last Admin: 06/12/18 09:54 Dose: 100 mg Metoprolol Tartrate (Lopressor) 50 mg PO BID [facility] Last Admin: 06/12/18 17:15 Dose: 50 mg Multivitamins (Thera Tab) 1 tab PO DAILY [facility] Last Admin: 06/12/18 09:51 Dose: 1 tab Ondansetron HCl (Zofran Inj) 4 mg IVP Q4H PRN PRN Reason: Nausea/Vomiting Pantoprazole Sodium (Protonix Ec Tab) 40 mg PO ACB [facility] Last Admin: 06/12/18 07:59 Dose: 40 mg Polyethylene Glycol (Miralax) 17 gm PO BID [facility] Last Admin: 06/12/18 17:18 Dose: 17 gm Potassium Chloride (K-Dur 20 Meq Er Tab) 20 meq PO DAILY [facility] Last Admin: 06/12/18 09:52 Dose: 20 meq Tamsulosin HCl (Flomax) 0.4 mg PO DAILY [facility] Last Admin: 06/12/18 09:51 Dose: 0.4 mg - Labs Labs: 06/13/18 06:00 06/13/18 06:00 PT 13.5 SECONDS (9.4-12.5) H 06/09/18 06:45 INR 1.17 06/09/18 06:45 APTT 27.0 Seconds (25.1-36.5) 06/09/18 06:45 Attending/Attestation - Attestation I have personally seen and examined this patient.: Yes I have fully participated in the care of the patient.: Yes I have reviewed all pertinent clinical information, including history, physical exam and plan: Yes
--- NOTE | 2018-06-10 19:22 | PN ---
DATE: 06/10/2018 SUBJECTIVE: The patient has followup today. As per report, after initiation of medication, the patient is much calmer, had a good night sleep. During this creative services writer's round, the patient was deeply sleeping and nurses reported that the patient does not have any agitation or aggression. Based on yesterday's presentation, the patient needs to have some rest in order to start feeling better. Please see initial consultation for more detailed information. This creative services writer had meeting with the patient's family, the patient's son as well as [id number]. Treatment plan was discussed in details as per the patient's permission. PHYSICAL EXAMINATION: VITAL SIGNS: In regards of vital signs, it seems to be stable. MEDICATIONS: Reviewed. Xanax 0.25 mg twice a day and 0.25 mg at the nighttime started as well as Depakote for mood stabilization. Haloperidol was started by Dr. Aguilar. Ativan will be discontinued because the patient is currently on Xanax. LABORATORY DATA: Reviewed. Coagulation reviewed. Chemistry reviewed. Urinalysis reviewed. MENTAL STATUS EXAMINATION: The patient is much calmer, deeply sleeping during this creative services writer in round. As per staff, the patient is less aggressive, less agitated, overall presented well. The patient was participating in physical therapy. IMPRESSION: Most likely, it is expressive aphasia and related to that diagnosis, frustration. Whenever the patient is not able to express himself, he feels agitated, but today the patient presented much better. Also this creative services writer cannot rule out that agitation also was related to the urinary tract infection and the patient currently on antibiotics and delirium is improving. PLAN: Discussed with family. Medications started, Depakote as well as Xanax. Haldol was discontinued. Treatment plan was discussed with the patient's son as well as [id number]. [id number] wants to be the patient's power of title attorney. This creative services writer feels that the patient' presentation is a neurological problem as well as medical problem. Meanwhile, the patient is improving. No agitation or aggression. The patient tolerates medications well and much calmer. This creative services writer will sign off. The patient is not in any imminent danger to self or others. Should you have any questions, give me a call back. Thank you very much for letting me participate in care of your patient. Shana Esposito MD [facility] # [id number]
--- NOTE | 2018-06-10 23:28 | PN ---
DATE: 06/10/2018 SUBJECTIVE: The patient is seen lying in the bed in room 563, bed 1. The patient is now moved to bed 563, bed 1. The patient is seen lying in the bed. The patient is much more calm, comfortable, and cooperative. The patient does not appear to be in any distress. The patient's 13-system review was done. Overnight nurse's notes were reviewed. Yesterday, the patient was found to be agitated, restless and yelling and screaming because of his own medical condition. The patient was seen and evaluated by psychiatrist, Dr. Esposito. PHYSICAL EXAMINATION: VITAL SIGNS: T-max 98.4, heart rate 69, 78, 84 beats per minute, atrial fibrillation, irregular. Blood pressure 131/74, 118/85, 128/70, respiration 18-20, O2 sat mid to high 90%. The patient is seen lying in the bed. HEENT: Head: Normocephalic, atraumatic. HEENT examination shows pink conjunctivae. Anicteric sclerae. NECK: Short and supple. CHEST: Kyphosis. LUNGS: Shows no audible rales, crackles or wheezing. CARDIOVASCULAR: S1, S2, irregular rhythm. Positive systolic murmur, left sternal border, right second intercostal space, left second intercostal space. ABDOMEN: Soft, obese, protuberant. Positive bowel sound. No palpable hepatosplenomegaly. Positive Sevilla catheter. Multiple surgical scar of the abdominal surgery. GENITALIA: Male. EXTREMITIES: Lower extremity shows no Kameron wrap today. Erythema of the lower extremity, decreasing lymphedema of the lower extremity. MUSCULOSKELETAL: Shows an elevated body mass index. The patient has slight weakness of the right upper and lower extremity. The patient's motor strength of the left side is 5/5. Right-sided motor strength is 4+ to 5-/5 of the upper and lower extremity. Gait examination is not tested. DIAGNOSTICS: On 06/10/2018, none. Diagnostics of 06/09/2018 reviewed. IMPRESSION: 1. Gross acute hematuria secondary to voiding dysfunction. 2. Multidrug resistant Klebsiella pneumoniae urinary tract infection, sensitive to Avycaz. 3. Bilateral lower extremity massive lymphedema and stasis ulceration. 4. Dysarthria, apraxia, expressive aphasia. 5. 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 6. Voiding dysfunction. 7. Prostatic hypertrophy. 8. Hematuria. 9. Thrombocytopenia. 10. Normocytic anemia. 11. Acute kidney injury with underlying chronic kidney disease stage III/IV. 12. Anticoagulation dependent atrial fibrillation. 13. Morbid obesity. 14. Hypothyroidism. 15. Gait dysfunction. 16. Deconditioning. 17. Hyperlipidemia. 18. History of gastric bypass surgery. 19. Poor compliance. 20. Behavioral disorder. PLAN AT THIS TIME: Case discussed with Urology. The patient is for possible suprapubic cystostomy and urological intervention tomorrow as per Dr. Nance. Lovenox to be stopped today in anticipation for a intervention tomorrow. The patient is at least [id number] risk for surgical intervention, which was also discussed with the Urology and was advised to proceed with the urological intervention, if cleared by Cardiology. The patient is to be continued on IV antibiotics as per Infectious Disease. The patient has been started on subcu Lovenox for the treatment of atrial fibrillation. The patient is on both GI and DVT prophylaxis. The patient is to be continued on the medications as per the MAR, which is reviewed again today and updated. Case was discussed with Urology if the patient is to proceed with the urological surgery, urological intervention and suprapubic cystostomy and catheter placement. The patient needs to be cleared by Cardiology and the Lovenox needs to be stopped today. The patient is to be continued on therapeutic intervention as per the MAR and as per recommendation by Cardiology, Psychiatry, Urology and Neurology. Overall, the patient's prognosis is guarded to poor. The patient is at least a moderate to high risk for surgical intervention, which the patient and the family are aware. The patient's and the patient has been told during this hospitalization and during the office visit that the patient requires 24 hours care and supervision due to the patient's complicated medical problem and decompensated state. I have advised the patient's during this hospitalization to contact and work with the Imaging Services Director with discharge planning options. Dictated and electronically signed, not read. Rashad Brown MD
[2018-06-11] MEDS: Levalbuterol 0.63 MG/3 ML Inhal Soln UD IH SCH ×3 (01:18→19:11)
--- NOTE | 2018-06-11 02:02 | PN ---
DATE: 06/10/2018 SUBJECTIVE: The patient was in room 563 and bed 1 early this morning. The patient was seen earlier. No fevers. No chills. No nausea. PHYSICAL EXAMINATION: VITAL SIGNS: On exam, temperature is 98, blood pressure is 130/80, respiratory rate of 20, heart rate of 68. HEENT: Examination of HEENT is unremarkable. NECK: Supple. LUNGS: Have decreased breath sounds. HEART: Normal S1 and S2. ABDOMEN: Soft, nontender. LABORATORY DATA: Laboratory examination reveals the patient's white count is 5.7, hemoglobin of 12, platelets of 136. BUN of 26, creatinine of 1.5. Urinalysis is noted. Microbiology reveals the urine has Klebsiella species, Klebsiella pneumoniae is sensitive to Amikacin. Resistant to all other antibiotics. Multidrug resistant from the same source. Klebsiella pneumoniae, it is carr resistant, it is ESBL negative. ASSESSMENT AND PLAN: A 63-year-old male with multidrug resistant Klebsiella in a patient with a Sevilla catheter, urinary tract infection, on Avycaz now renally adjusted, day #3, would complete 7 days in a patient with chronic obstructive pulmonary disease, hypertension, gastric bypass surgery, atrial fibrillation, congestive heart failure. He has systolic congestive heart failure with ejection fraction 25% and atrial fibrillation and the patient with acute cerebrovascular accident, right-sided weakness. Blood cultures are negative. Overall prognosis is poor. Review of the orders reveals the Avycaz to be active. We will repeat a urinalysis and urine culture. We will follow with you. Minh Padilla MD
[2018-06-11] MEDS: Pantoprazole 40 mg EC Tab PO SCH (08:25)
--- NOTE | 2018-06-11 08:47 | CP.PCM.PN ---
<Loly Watts - Last Filed: 06/11/18 08:47> Subjective - Date & Time of Evaluation Date of Evaluation: 06/11/18 Time of Evaluation: 08:46 - Subjective Subjective: Podiatry progress note for Dr. Sebastian: 63 yo male patient, seen and evaluated at bedside with Dr. Sebastian, for edema to bilateral lower extremities. Patient is resting comfortably and in NAD. Unable to obtain full history secondary to patients current inability to communicate. Objective - Vital Signs/Intake and Output Vital Signs (last 24 hours): Temp Pulse Resp BP Pulse Ox 98 F 90 20 138/88 98 06/11/18 06:00 06/11/18 06:00 06/11/18 06:00 06/11/18 06:00 06/11/18 06:00 Intake and Output: 06/11/18 06/11/18 06:59 18:59 Intake Total 300 Output Total 700 Balance -400 - Medications Medications: Current Medications Acetaminophen (Tylenol 325mg Tab) 650 mg PO Q4H PRN PRN Reason: pain and fever Acetaminophen (Tylenol 325mg Tab) 650 mg PO Q6 PRN PRN Reason: TEMP>=99.5F Acetaminophen (Tylenol 650 Mg Supp) 650 mg RC Q6H PRN PRN Reason: TEMP>=99.5F Albuterol/Ipratropium (Duoneb 3 Mg/0.5 Mg (3 Ml) Ud) 3 ml IH Q2H PRN PRN Reason: Shortness of Breath Alprazolam (Xanax) 0.25 mg PO BID [facility]; Protocol Stop: 06/16/18 18:01 Last Admin: 06/10/18 18:06 Dose: 0.25 mg Alprazolam (Xanax) 0.25 mg PO HS [facility] Stop: 06/16/18 22:01 Last Admin: 06/10/18 21:45 Dose: 0.25 mg Aspirin (Aspirin Chewable) 81 mg PO DAILY [facility] Last Admin: 06/10/18 11:58 Dose: 81 mg Atorvastatin Calcium (Lipitor) 40 mg PO HS [facility] Last Admin: 06/10/18 21:43 Dose: 40 mg Cholecalciferol (Vitamin D) 2,000 intlu PO DAILY [facility] Last Admin: 06/10/18 11:55 Dose: 2,000 intlu Diphenhydramine HCl (Benadryl) 25 mg PO Q8H PRN PRN Reason: Allergy symptoms Divalproex Sodium (Depakote Sprinkles) 125 mg PO BID [facility]; Protocol Last Admin: 06/10/18 18:06 Dose: 125 mg Furosemide (Lasix) 40 mg IVP Q12 SACHIN Last Admin: 06/10/18 21:44 Dose: 40 mg Ceftazidime/Avibactam 1.25 gm/ (Sodium Chloride) 100 mls @ 50 mls/hr IVPB Q8H [facility]; Protocol Stop: 06/15/18 17:46 Last Admin: 06/11/18 02:26 Dose: 50 mls/hr Levalbuterol HCl (Xopenex) 0.63 mg IH [id number] [facility] Last Admin: 06/11/18 07:28 Dose: Not Given Levothyroxine Sodium (Synthroid) 25 mcg PO DAILY [facility] Last Admin: 06/10/18 11:56 Dose: 25 mcg Losartan Potassium (Cozaar) 100 mg PO DAILY [facility] Last Admin: 06/10/18 12:03 Dose: 100 mg Metoprolol Tartrate (Lopressor) 50 mg PO BID [facility] Last Admin: 06/10/18 11:55 Dose: 50 mg Multivitamins (Thera Tab) 1 tab PO DAILY [facility] Last Admin: 06/10/18 12:03 Dose: 1 tab Ondansetron HCl (Zofran Inj) 4 mg IVP Q4H PRN PRN Reason: Nausea/Vomiting Pantoprazole Sodium (Protonix Ec Tab) 40 mg PO ACB [facility] Last Admin: 06/11/18 08:25 Dose: Not Given Potassium Chloride (K-Dur 20 Meq Er Tab) 20 meq PO DAILY [facility] Last Admin: 06/10/18 11:56 Dose: 20 meq Tamsulosin HCl (Flomax) 0.4 mg PO DAILY [facility] Last Admin: 06/10/18 11:58 Dose: 0.4 mg - Labs Labs: 06/09/18 06:45 06/09/18 06:45 PT 13.5 SECONDS (9.4-12.5) H 06/09/18 06:45 INR 1.17 06/09/18 06:45 APTT 27.0 Seconds (25.1-36.5) 06/09/18 06:45 - Constitutional Appears: Well, No Acute Distress - Extremities Exam Additional comments: Vasc: DP/PT pulses 2/4 b/l. Cap refill > 3 seconds to all digits. Skin temperature warm to warm from proximal to distal. +2 edema noted to bilateral lower extremity Neuro: Unable to assess Ortho: Patient able to move digits Derm: Diffuse dermal change, hyperpigmentation and lichenification noted to bilateral extremities, no drainage, no open lesions, no erythema, no purulence, no clinical signs of infection, skin is well hydrated - Neurological Exam Neurological Exam: Awake - Psychiatric Exam Psychiatric exam: Normal Affect, Normal Mood Assessment and Plan - Assessment and Plan (Free Text) Assessment: 63 y/o M patient seen and evaluated at the bed side for bilateral lower extremity edema Plan: Patient seen and evaluated at the bedside with Dr. Sebastian Chart, labs and vitals reviewed; Afebrile, absent leukocytosis Bilateral lower extremities cleansed with saline and lotion applied to bilateral lower extremities No dressings applied to bilateral lower extremities; left open to air Multipodus boots ordered for bilateral lower extremities and to be worn at all times to prevent heel breakdown; patient did not have them at this time, spoke with community services coordinator who is aware Podiatry will follow the patient once weekly while in house. <Anusha Sebastian - Last Filed: 06/15/18 18:17> Objective - Vital Signs/Intake and Output Vital Signs (last 24 hours): Temp Pulse Resp BP Pulse Ox 98.3 F 65 18 106/67 95 06/15/18 08:23 06/15/18 11:17 06/15/18 08:23 06/15/18 11:17 06/15/18 08:23 Intake and Output: 06/15/18 06/15/18 06:59 18:59 Intake Total 620 120 Output Total 100 Balance 520 120 - Labs Labs: 06/13/18 06:00 06/13/18 06:00 PT 13.5 SECONDS (9.4-12.5) H 06/09/18 06:45 INR 1.17 06/09/18 06:45 APTT 27.0 Seconds (25.1-36.5) 06/09/18 06:45 Attending/Attestation - Attestation I have personally seen and examined this patient.: Yes I have fully participated in the care of the patient.: Yes I have reviewed all pertinent clinical information, including history, physical exam and plan: Yes
[2018-06-11] MEDS: Divalproex 125 mg EC Sprinkle Cap PO SCH ×2 (10:14→17:01)
[2018-06-11] MEDS: Cholecalciferol 1,000 INTLU TAB PO SCH (10:15)
[2018-06-11] MEDS: Levothyroxine 25 MCG TAB PO SCH (10:15)
[2018-06-11] MEDS: Multivitamin Therapeutic Tab PO SCH (10:15)
[2018-06-11] MEDS: Potassium Chloride 20 mEq ER Tab PO SCH (10:15)
[2018-06-11] MEDS ORDERED: Bupivacaine 0.5% 50 ML IJ ONE (10:32)
[2018-06-11] MEDS ORDERED: Propofol 10 mg/ml Inj (20 ML) ONE (10:52)
[2018-06-11] MEDS ORDERED: Iohexol 240 (50 ml) ONE (10:56)
[2018-06-11] MEDS ORDERED: Etomidate 20 mg/10ml Inj IV ONE (11:12)
--- NOTE | 2018-06-11 14:50 | RAD ---
Date of service: 06/11/2018 PROCEDURE: Fluoroscopy up to 1 hr HISTORY: SUPRA-PUBIC CATHETER INSERTION / CYSTOGRAM COMPARISON: TECHNIQUE: 21.8 sec of fluoro time. Cumulative dose 7.04 mGy. Nineteen images submitted FINDINGS: The study shows placement of a balloon tipped suprapubic catheter in the bladder. IMPRESSION: As above
--- NOTE | 2018-06-11 15:29 | PN ---
DATE: 06/11/2018 IMMEDIATE POSTOP NOTE SUBJECTIVE: A very pleasant gentleman, status post cystoscopy with cystogram, insertion of cystostomy tube. Catheter is draining well via the urethra and the suprapubic catheter. Dressing intact. The patient tolerated the procedure well without complications. The plan is as follows: Maintain Sevilla and the suprapubic for now. We will change it within a few days clinically just to make sure it is draining well. So further plans will follow. Jae Nance MD
--- NOTE | 2018-06-11 20:07 | PN ---
DATE: 06/11/2018 SUBJECTIVE: The patient is in bed, in no acute distress, nontoxic. PHYSICAL EXAMINATION: VITAL SIGNS: Temperature is 98, blood pressure is 140/80, respiratory rate of 18. HEENT: Examination of HEENT is unremarkable. NECK: Supple. LUNGS: Have decreased breath sounds. HEART: Normal S1, S2. ABDOMEN: Soft, nontender. LABORATORY EXAMINATION: Reveals a white count of 5.7, hemoglobin of 12, platelets of 136. BUN of 26, creatinine of 1.5. Urinalysis is noted. Microbiology reveals the Klebsiella is noted in the urine. MEDICATIONS: Review of orders reveals the patient is on ceftazidime. ASSESSMENT AND PLAN: A 63-year-old male with multidrug-resistant Klebsiella in a patient with Sevilla catheter, urinary tract infection, on Avycaz, renally adjusted day #4, would complete 7 days in a patient with chronic obstructive lung disease, hypertension, gastric bypass surgery, atrial fibrillation, congestive heart failure, has a systolic congestive heart failure, ejection fraction of 25% with atrial fibrillation and acute cerebrovascular accident, right-sided weakness, and blood cultures negative. The patient is for possible cystoscopy today. We will follow with you. Minh Padilla MD
[2018-06-12] MEDS: Levalbuterol 0.63 MG/3 ML Inhal Soln UD IH SCH ×4 (01:48→20:07)
--- NOTE | 2018-06-12 02:15 | PN ---
DATE: 06/11/2018 SUBJECTIVE: The patient is seen lying in the bed, in room 563, bed 1. The patient is now post suprapubic cystostomy placement by Dr. Nance today. The patient is seen lying in the bed. The patient's is at bedside. Dr. Jae Nance is at bedside. PHYSICAL EXAMINATION: GENERAL: The patient is alert, awake, responsive, comfortable, in no distress. Lying in the bed. VITAL SIGNS: T-max 97.5, heart rate 74, 68, 84, respirations 16-18. Blood pressure 133/84, 138/88, 122/93, 129/82, 131/77, 149/91, respirations 16, O2 sat 99%. HEAD: Normocephalic, atraumatic. HEENT examination shows pink conjunctivae. Anicteric sclerae. No oropharyngeal lesion. No neck rigidity. CHEST: Kyphosis. LUNGS: Shows no rales, crackles or wheezing. CARDIOVASCULAR: S1, S2, irregular rhythm. Positive systolic murmur at left sternal border, right second intercostal space, left second intercostal space. ABDOMEN: Morbidly obese with positive surgical scar of the abdomen. GENITALIA: Male. Positive Sevilla catheter through the penis and positive suprapubic cystostomy noted, was connected to the drainage bag, draining some bloody material. MUSCULOSKELETAL: Shows an elevated body mass index of 44. NEUROLOGIC: The patient is awake, responsive. The patient has expressive and positive dysarthria noted. Gait examination could not be tested. IMPRESSION: 1. Status post percutaneous suprapubic cystostomy placement and cystoscopy cystogram. 2. Voiding dysfunction. 3. Status post cystoscopy with cystogram and status post cystostomy tube placement. 4. Hypertension. 5. Atrial fibrillation. 6. Normocytic anemia. 7. Transient thrombocytopenia. 8. Acute kidney injury. 9. Chronic kidney disease stage III. 10. Super morbid obesity with elevated body mass index of 46. 11. Multidrug-resistant Klebsiella pneumoniae, urinary tract infection with proteinuria, ketonuria, microscopic hematuria, pyuria, bacteriuria. 12. Gross hematuria. 13. Bilateral lower extremity lymphedema and venous stasis ulceration. 14. Cardiomyopathy. 15. History of cerebrovascular accident with right hemiparesis. 16. Behavioral disorder. 17. Prostatic hypertrophy. 18. Hypothyroidism. 19. Anxiety disorder. PLAN: At this time, the patient has been ordered repeat labs for the morning. Current consultation, Urology, Cardiology, Infectious Disease, Neurology, Podiatry and Psychiatry. Current medications, Ecotrin 81 mg daily, Avycaz 1.25 g IV every 8 hours to be completed until 06/15/2018, Benadryl 25 mg p.o. every 8 hours p.r.n. Cozaar 100 mg daily, Depakote 125 mg twice a day, DuoNeb nebulizers every 2 hours p.r.n., Flomax 0.4 mg daily, K-Dur 20 mEq daily, Lasix 40 mg IV every 12 hours, Lipitor 40 mg at bedtime, Lopressor 50 mg twice a day, Protonix 40 mg daily, Synthroid 25 mcg daily, multivitamin 1 tablet daily, Tylenol 650 mg p.o. suppository every 6 hours p.r.n., vitamin D3 2000 units daily, Xanax 0.25 mg b.i.d. and Xanax 0.25 mg at bedtime. Xopenex nebulizer 0.63 mg every 6 hours, Zofran 4 mg IV every 4 hours p.r.n. Incentive spirometry and nasal cannula has been ordered. The patient has been ordered out of bed, occupational therapy, physical therapy. At present, the patient was seen by Certified Nutritionist. The patient's was notified about the patient's denial from [facility] because of exhaustions of benefit. The patient was . The patient is to be continued postoperatively as above with close followup with all the subspecialty and consultation. The patient's updated about the patient's condition, diagnosis, test results, further follow-up plan and management at length and all questions concerned answered. Dictated and electronically signed, not read. Rashad Brown MD
[2018-06-12 07:14] LABS: BASO # 0.01 K/mm3 (0.0-2.0); BASO % 0.1 % (0.0-3.0); EOS # 0.2 (0.0-0.7); EOS % 2.2 % (1.5-5.0); GRAN # 6.01 (1.4-6.5); GRAN % 80.8 % (50.0-68.0); HEMOGLOBIN 13.3 g/dL (14.0-18.0); LYMPH # 0.9 (1.2-3.4); LYMPH % 11.4 % (22.0-35.0); MEAN CELL VOLUME 92.5 fl (80.0-105.0); MEAN CORPUSCULAR HEMOGLOBIN 31.1 pg (25.0-35.0); MEAN CORPUSCULAR HGB CONC 33.6 g/dl (31.0-37.0); MEAN PLATELET VOLUME 9.7 fl (7.0-11.0); MONO # 0.4 (0.1-0.6); MONO % 5.5 % (1.0-6.0); RBC 4.28 10^6/uL (3.5-6.1); RED CELL DISTRIBUTION WIDTH 13.2 % (11.5-14.5); WHITE BLOOD COUNT 7.4 10^3/ul (4.5-11.0)
[2018-06-12 07:17] LABS: ALBUMIN 3.4 g/dL (3.0-4.8); BILIRUBIN,DIRECT 0.2 mg/dL (0.0-0.4); CALCIUM 8.9 mg/dL (8.4-10.5)
[2018-06-12] MEDS: Pantoprazole 40 mg EC Tab PO SCH (07:59)
--- NOTE | 2018-06-12 08:13 | PN ---
DATE: 06/12/2018 CARDIOLOGY FOLLOWUP SUBJECTIVE: The patient is comfortable in bed. No shortness of breath. OBJECTIVE: VITAL SIGNS: Blood pressure is 175/100, heart rate is in the 80s. NECK: Negative JVD. LUNGS: Without rales. HEART: Reveal S1, S2. EXTREMITIES: Without edema. DATA: Laboratories were reviewed. IMPRESSION: 1. Hematuria. 2. Chronic atrial fibrillation. 3. [id number] pulmonary hypertension. 4. Pedal edema. Given these findings, once the patient is cleared by Urology, I would recommend restarting the patient on Eliquis. Oscar Andres MD
--- NOTE | 2018-06-12 08:13 | OP ---
PROCEDURE DATE: 06/11/2018 UROLOGY OPERATIVE REPORT Please see many dictated consult notes, progress notes, office notes, and medical records. Patient is now here for the above the procedure. PREOPERATIVE DIAGNOSES: Urinary retention, voiding dysfunction, neurogenic bladder, gross hematuria, incomplete bladder, and recurrent infection, and water trapped catheter discomfort. POSTOPERATIVE DIAGNOSES: Urinary retention, voiding dysfunction, neurogenic bladder, gross hematuria, incomplete bladder, and recurrent infection, and water trapped catheter discomfort. PROCEDURE: A cystogram, insertion of punch cystostomy tube and a Sevilla, and cystoscopy. COMPLICATIONS: There were no complications. ESTIMATED BLOOD LOSS: Less than 20 mL. On examination, the patient has two drains and he has a suprapubic 12-American and Sevilla catheter via urethra, a 22-American. There were no complications and that has been secured well. INDICATIONS: See history and physical and multiple consultation notes. Very informed family about the matter being very difficult because of the medical condition. Unfortunately please see many previous notes. We re-consulted on the patient on , 06/05/2018, and we discussed the options. We then tried our best on 06/06/2018, but delayed due to scheduling complex, and we will do it on 06/08/2018, but after evaluating with the team that was here, we decided to do it today with today's procedure when there will be multiple staff in the daytime. We discussed various options with the patient in the hospital for various reasons. See the previously dictated notes. PROCEDURE ITSELF: Today, we just want to make a mention of the findings today. We were able to perform cystoscopy. We confirmed that the balloon is in perfect location. We were able to use a spinal needle to gain access to the bladder. See the body of the report, because again it was difficult to feel his pubic symphysis, but again with and was having and find different spinal needles with different lengths and different sizes, we were able to do it much more successfully today, in way much better. after discussing the option with the patient's family and [id number], and the risks and benefits have been discussed at length, including risk of infection, risk of perforation, risk that the catheter will not work, all these things were discussed at length. After we discussed all those, we went ahead with the procedure. Patient was kept in supine position again, given his anesthesia, he is at high risk. See the code. We began gently and carefully. We palpated with the pubic bone as we held up his pannus. Then we put a tape on it. We then felt the pubic bone again and again multiple times. At this point, under sterile technique, we are going to put a new Sevilla catheter and we will get a new bag for irrigation. Only we were able to distend it up to 300 mL, then it starts leaking. I like to do want to mention that we were able to fluoroscopically see it well. The procedure continued, now we added a little contrast and fluoroscopically we used the biplanar fluoroscopy and we moved the C-arm around the table. We used clamps to measure level of depth. Now we as well. We got into the wall of bladder and now we drained using the finder needle with spinal, we were able to, which were clear fluid. We then meticulously, carefully measured the length. We introduced the suprapubic catheter, which has already been set up. We got right into the bladder. We inflated the balloon. We pulled out the needle, then inflated the balloon and then pulled out the stylet. It is my usual fashion and we confirmed that is in place, both fluoroscopically and then it kept draining very well. At this point, we then irrigated. We will make sure it is working well . We secured everything to the skin. We took drain as well and put a little contrast in the balloon. Everything looks perfect. Ultimately, actually with the Sevilla in the urethra, I did not leave the catheter. Although, the patient tolerated this procedure well without complications. At this point I did a cystoscope. With patient in supine, flexible cystoscope done. We confirmed our positioning. We adjusted the balloon and actually put it up against the wall nicely. Patient tolerated it without complication. Irrigated well. We put a dry dressing on. Patient tolerated this without complication. Jae Nance MD [facility] # [id number]
[2018-06-12] MEDS: Divalproex 125 mg EC Sprinkle Cap PO SCH ×2 (09:51→17:14)
[2018-06-12] MEDS: Levothyroxine 25 MCG TAB PO SCH (09:51)
[2018-06-12] MEDS: Cholecalciferol 1,000 INTLU TAB PO SCH (09:51)
[2018-06-12] MEDS: Multivitamin Therapeutic Tab PO SCH (09:51)
--- NOTE | 2018-06-12 09:51 | CP.PCM.PN ---
Subjective - Date & Time of Evaluation Date of Evaluation: 06/12/18 Time of Evaluation: 09:48 - Subjective Subjective: PGY-2 medicine progress note for Dr Brown No acute events noted overnight. Patient underwent a successful insertion of cystostomy tube and muniz and cystoscopy yesterday with Dr Mauricio Nance. Patient is resting comfortably and in NAD. Unable to obtain full history secondary to patients current inability to communicate. Objective - Vital Signs/Intake and Output Vital Signs (last 24 hours): Temp Pulse Resp BP Pulse Ox 98.4 F 88 20 145/90 99 06/12/18 06:00 06/12/18 06:00 06/12/18 06:00 06/12/18 06:00 06/12/18 06:00 Intake and Output: 06/12/18 06/12/18 06:59 18:59 Output Total 250 Balance -250 - Medications Medications: Current Medications Acetaminophen (Tylenol 325mg Tab) 650 mg PO Q4H PRN PRN Reason: pain and fever Last Admin: 06/12/18 08:11 Dose: 650 mg Acetaminophen (Tylenol 325mg Tab) 650 mg PO Q6 PRN PRN Reason: TEMP>=99.5F Acetaminophen (Tylenol 650 Mg Supp) 650 mg RC Q6H PRN PRN Reason: TEMP>=99.5F Albuterol/Ipratropium (Duoneb 3 Mg/0.5 Mg (3 Ml) Ud) 3 ml IH Q2H PRN PRN Reason: Shortness of Breath Alprazolam (Xanax) 0.25 mg PO BID [facility]; Protocol Stop: 06/16/18 18:01 Last Admin: 06/11/18 19:06 Dose: Not Given Alprazolam (Xanax) 0.25 mg PO HS [facility] Stop: 06/16/18 22:01 Last Admin: 06/11/18 21:15 Dose: 0.25 mg Aspirin (Aspirin Chewable) 81 mg PO DAILY [facility] Last Admin: 06/11/18 10:14 Dose: Not Given Atorvastatin Calcium (Lipitor) 40 mg PO HS [facility] Last Admin: 06/11/18 21:21 Dose: 40 mg Cholecalciferol (Vitamin D) 2,000 intlu PO DAILY [facility] Last Admin: 06/11/18 10:15 Dose: Not Given Diphenhydramine HCl (Benadryl) 25 mg PO Q8H PRN PRN Reason: Allergy symptoms Last Admin: 06/11/18 21:14 Dose: 25 mg Divalproex Sodium (Depakote Sprinkles) 125 mg PO BID [facility]; Protocol Last Admin: 06/11/18 17:01 Dose: 125 mg Furosemide (Lasix) 40 mg IVP Q12 SACHIN Last Admin: 06/11/18 21:15 Dose: 40 mg Ceftazidime/Avibactam 1.25 gm/ (Sodium Chloride) 100 mls @ 50 mls/hr IVPB Q8H [facility]; Protocol Stop: 06/15/18 17:46 Last Admin: 06/12/18 01:45 Dose: 50 mls/hr Levalbuterol HCl (Xopenex) 0.63 mg IH [id number] [facility] Last Admin: 06/12/18 07:58 Dose: Not Given Levothyroxine Sodium (Synthroid) 25 mcg PO DAILY [facility] Last Admin: 06/11/18 10:15 Dose: Not Given Losartan Potassium (Cozaar) 100 mg PO DAILY [facility] Last Admin: 06/11/18 10:14 Dose: Not Given Metoprolol Tartrate (Lopressor) 50 mg PO BID [facility] Last Admin: 06/11/18 17:02 Dose: 50 mg Multivitamins (Thera Tab) 1 tab PO DAILY [facility] Last Admin: 06/11/18 10:15 Dose: Not Given Ondansetron HCl (Zofran Inj) 4 mg IVP Q4H PRN PRN Reason: Nausea/Vomiting Ondansetron HCl (Zofran Inj) 4 mg IVP ONCE PRN PRN Reason: Nausea/Vomiting Pantoprazole Sodium (Protonix Ec Tab) 40 mg PO ACB [facility] Last Admin: 06/12/18 07:59 Dose: 40 mg Potassium Chloride (K-Dur 20 Meq Er Tab) 20 meq PO DAILY [facility] Last Admin: 06/11/18 10:15 Dose: Not Given Tamsulosin HCl (Flomax) 0.4 mg PO DAILY [facility] Last Admin: 06/11/18 10:14 Dose: Not Given - Labs Labs: 06/12/18 06:15 06/12/18 06:15 PT 13.5 SECONDS (9.4-12.5) H 06/09/18 06:45 INR 1.17 06/09/18 06:45 APTT 27.0 Seconds (25.1-36.5) 06/09/18 06:45 - Additional Findings Additional findings: - Constitutional Appears: Well, Non-toxic, No Acute Distress - Head Exam Head Exam: NORMAL INSPECTION, NORMOCEPHALIC - Eye Exam Eye Exam: EOMI, Normal appearance - ENT Exam ENT Exam: Mucous Membranes Moist, Normal Exam - Neck Exam Neck exam: Positive for: Normal Inspection - Respiratory Exam Respiratory Exam: Clear to Auscultation Bilateral, NORMAL BREATHING PATTERN - Cardiovascular Exam Cardiovascular Exam: REGULAR RHYTHM, +S1, +S2 - GI/Abdominal Exam GI & Abdominal Exam: Soft. absent: Tenderness - Exam Additional comments: Dried blood noted around urethral meatus. No active bleeding noted muniz in place with muniz bag. No external drainage noted - Extremities Exam Extremities exam: Positive for: normal inspection. Negative for: calf tenderness - Back Exam Back exam: NORMAL INSPECTION - Neurological Exam Neurological exam: CN II-XII Intact - Psychiatric Exam Psychiatric exam: Normal Affect, Normal Mood - Skin Skin Exam: Dry, Warm Assessment and Plan - Assessment and Plan (Free Text) Plan: 63 y/o M w/ h/o CVA with expressive aphasia, atrial fibrillation (on Eliquis), Pulmonary HTN, s/p failed suprapubic catheter insertion and urinary inc ontinence, obesity, HTN, renal insufficiency, and chronic lymphedema, presenting to the ED for urethral bleeding: Urethral Bleeding Urinary Retention -Hgb stable throughout admission -Retention 2/2 neurogenic bladder -Consult urology, Dr Mauricio Nance * Urologic procedure scheduled for 06/08 was cancelled due to anesthesiologist not being able to perform procedure * Patient underwent a successful insertion of cystostomy tube and muniz and cystoscopy 06/12 -Muniz placed and reinforced to leg as patient occasionally pulls on muniz -Tamsulosin 0.4mg po qd -Percocet 5/325 po q6h prn Multi-Drug Resistant UTI -Consult ID, Dr Valdes * gave 1 dose of Amikacin but now the lab is reporting that the Klebsiella is sensitive to Avycaz - will use Avycaz instead (renally-adjusted) -Ur Cx 06/05 growing multi-drug resistant klebsiella pneumoniae -Ceftazidime/Avibactam [Avycaz] 1.25g ivpb q8h started 06/08 Agitation -Patient occasionally agitated, refusing CXR, seen by RN smacking himself in frustration -Consult Psychiatry, Dr Saldana * Agitation due to neurological deficit, rule out delirium -Haloperidol 0.5mg po q6h prn -Lorazepam 0.5mg po q4h prn -Alprazolam 0.25mg po bid and hs -Divalproex 125mg po bid Hx of CVA w/ Residual Expressive Aphasia -Consult Neuro, Dr Hendricks * For stroke prevention, can continue with Aspirin 81 mg. * Hold off on Eliquis in setting of urethral bleeding. -Speech Therapist * Ok to continue regular consistency diet w/ thin liquids -Aspirin 81mg po qd -Lipitor 40mg po hs AFib -Consult Cardio, Dr Andres * Prior to procedure (scheduled for 06/11) start subcutaneous Lovenox and stop 12 hours prior * Once cleared by surgery, restart eliquis after procedure -Holding home eliquis 10/11 to uretheral bleed -Metoprolol Tartrate 50mg po bid -Lovenox 60mg sc q12h (stopped 06/10) Severe Pulmonary HTN -Consult Cardio, Dr Andres * Moderate to increased risk for any anesthesia Stasis Ulcer B/L LE Chronic Lymphedema B/L LE -Consult Podiatry, Dr Sebastian * Patient dressing changed 06/08 - applied maxorb, and DSD with stockinette to cover -Monitor for infection as patient has history of right leg infected venous stasis ulcers, with MRSA and Pseudomonas -Furosemide 40mg ivp q12h -Elevate edematous areas COPD -Levalbuterol 0.63mg ih q6h -Duoneb 3ml ih q2h prn HTN -Losartan 100mg po qd PPX -Protonix 40mg po qd -Potassium 20meq po qd -OT/PT/ST Dispo: [facility] ([facility]?) or Home w/ SVC's if denied by [facility].
[2018-06-12] MEDS: Potassium Chloride 20 mEq ER Tab PO SCH (09:52)
--- NOTE | 2018-06-12 11:38 | PN ---
DATE: 06/12/2018 SUBJECTIVE: The patient is in room 563, bed 1. Overnight nurse's notes were reviewed. The patient did not have any agitated or restless behavior noticed by the nurses. The patient had transiently elevated blood pressure overnight. Systolic blood pressure was 170s and diastolic was in 100. Repeat blood pressure is much improved with systolic blood pressure now in 140s and 150s, diastolic blood pressure in 80s and 70s. PHYSICAL EXAMINATION: VITAL SIGNS: T-max afebrile, heart rate 64, 68, 74, 89, respiration 18-20, O2 sat is 96-98%. HEENT: Head: Normocephalic, atraumatic. HEENT examination shows pink conjunctivae. Anicteric sclerae. No oropharyngeal lesion. NECK: No neck rigidity. Neck is short and supple. CHEST: Kyphosis. LUNGS: Shows no audible crackles, rales or wheezing. CARDIOVASCULAR: S1, S2, regular rhythm. ABDOMEN: Obese, protuberant. Positive multiple surgical scar of the abdomen. Positive suprapubic cystostomy noted connected to the bag. Positive Sevilla catheter noted. GENITALIA: Male. EXTREMITIES: Shows positive chronic lymphedema and swelling of the lower extremity and erythema of the lower extremity. MUSCULOSKELETAL: Shows an elevated body mass index. NEUROLOGICAL: The patient is alert, awake, responsive. The patient has expressive dysarthria and expressive apraxia and aphasia. The patient has mild right-sided weakness with a motor strength of the right side 4+ to 5-/5. Gait examination is not tested. DIAGNOSTICS: On 06/12/2018, hemoglobin and hematocrit 13.3 and 39.6, platelet 169. CMP, LFTs are reviewed, which are all within normal limit except BUN is 26, creatinine 1.5. IMPRESSION: 1. Voiding dysfunction. 2. Gross hematuria. 3. Status post suprapubic cystostomy placement. 4. Possible neurogenic bladder secondary to cerebral infarct. 5. Apraxia, dysarthria, aphasia. 6. Cerebrovascular accident with right-sided hemiparesis. 7. Morbid obesity. 8. Mild anemia. 9. Chronic kidney disease stage III. 10. Anticoagulation requiring atrial fibrillation. 11. Hypertension. 12. Hypothyroidism. 13. Hyperlipidemia. 14. History of noncompliance and poor compliance. 15. Gait dysfunction. 16. Deconditioning. 17. Multidrug resistant Klebsiella pneumoniae urinary tract infection. 18. Questionable behavioral disorder. 19. Possible anxiety disorder. 20. Insomnia. PLAN AT THIS TIME: The patient has to be followed up with Urology for further recommendations and intervention. Currently the patient is on IV antibiotics Avycaz 1.5 g every 8 hours to be completed 7 days of IV antibiotics. The patient is to be continued on IV Lasix for diuresis. The patient is to be continued on medications as per the MAR of 06/12/2018, which is reviewed. I have met with the patient and the patient's last night. I have advised the patient's to work with case management, social media marketing analyst for the patient's discharge planning and options. As the patient has been denied by most of the subacute rehab. I have also discussed with the patient's about possible long-term placement, if the patient and the patient's family is agreeable. I have also advised to the patient's that the patient's overall prognosis is guarded to poor. The patient will be continued on the above therapeutic interventions and medications as per the MAR. The patient will continue to be treated with above antibiotics as per Infectious Disease recommendation. The patient will continue with out of bed to chair, out of bed to recliner and daily physical therapy, occupational therapy, ambulation therapy, gait training. Dictated and electronically signed, not read. Rashad Brown MD
[2018-06-12] MEDS: POLYETHYLENE GLYCOL 3350 17 GM/Dose PACKET PO SCH (17:18)
[2018-06-13] MEDS: Levalbuterol 0.63 MG/3 ML Inhal Soln UD IH SCH ×4 (01:57→21:37)
--- NOTE | 2018-06-13 03:11 | PN ---
DATE: 06/12/2018 SUBJECTIVE: The patient is seen in bed, in no acute distress, nontoxic. The patient was seen early this morning. PHYSICAL EXAMINATION: VITAL SIGNS: Temperature is 98, blood pressure is 120/70, respiratory rate of 18. HEENT: Unremarkable. NECK: Supple. LUNGS: Have decreased breath sounds. HEART: Normal S1, S2. ABDOMEN: Soft. LABORATORY EXAMINATION: Reveals the patient's white count of 7.4, hemoglobin of 13. BUN of 26, creatinine of 1.5. Urinalysis is noted and microbiology is reviewed. Review of orders reveals the patient to be on Avycaz. ASSESSMENT AND PLAN: This is a 63-year-old male who was seen earlier today with multidrug resistant Klebsiella and chronic Sevilla catheter, urinary tract infection on Avycaz, today is day #5 with complete 7 days in a patient who has chronic obstructive lung disease, hypertension, gastric bypass, atrial fibrillation, congestive heart failure, systolic congestive heart failure, ejection fraction of 25%, atrial fibrillation, acute cerebrovascular accident, right-sided weakness. Status post cystoscopy. Yesterday, the patient had a percutaneous suprapubic cystotomy and the patient is at risk for developing nosocomial infections. Minh Padilla MD
[2018-06-13 06:24] LABS: MEAN CELL VOLUME 92.1 fl (80.0-105.0); MEAN CORPUSCULAR HEMOGLOBIN 30.8 pg (25.0-35.0); MEAN CORPUSCULAR HGB CONC 33.4 g/dl (31.0-37.0); MEAN PLATELET VOLUME 9.3 fl (7.0-11.0); RBC 4.55 10^6/uL (3.5-6.1); RED CELL DISTRIBUTION WIDTH 13.3 % (11.5-14.5); WHITE BLOOD COUNT 7.6 10^3/ul (4.5-11.0)
[2018-06-13 06:52] LABS: ALB/GLOB RATIO 1.1 (1.1-1.8); ALBUMIN 3.6 g/dL (3.0-4.8); CALCIUM 8.8 mg/dL (8.4-10.5)
[2018-06-13] MEDS ORDERED: Barium Sulfate for Susp 96% w/w 176g Bottle PR ONE (09:19)
--- NOTE | 2018-06-13 10:42 | RAD ---
Date of service: 06/13/2018 PROCEDURE: Upper GI series HISTORY: abdominal pain COMPARISON: TECHNIQUE: The study was limited by the patient's movement and inability to follow instructions. There was breathing artifact. FINDINGS: The manufacturer's service representative film shows a lap band at the GE junction. The esophagus is unremarkable with no obstruction. The stomach is small in size. There is no obstruction to flow into the duodenum. The proximal small bowel is unremarkable IMPRESSION: Limited study. No evidence of obstruction
[2018-06-13] MEDS: Potassium Chloride 20 mEq ER Tab PO SCH (11:24)
[2018-06-13] MEDS: POLYETHYLENE GLYCOL 3350 17 GM/Dose PACKET PO SCH ×2 (11:24→17:35)
[2018-06-13] MEDS: Multivitamin Therapeutic Tab PO SCH (11:25)
[2018-06-13] MEDS: Pantoprazole 40 mg EC Tab PO SCH (11:25)
[2018-06-13] MEDS: Levothyroxine 25 MCG TAB PO SCH (11:25)
--- NOTE | 2018-06-13 13:34 | CP.PCM.PN ---
Subjective - Date & Time of Evaluation Date of Evaluation: 06/13/18 Time of Evaluation: 09:15 - Subjective Subjective: No fevers, not in distress. Objective - Vital Signs/Intake and Output Vital Signs (last 24 hours): Temp Pulse Resp BP Pulse Ox 98.4 F 96 H 20 168/78 H 98 06/12/18 14:00 06/12/18 17:15 06/12/18 14:00 06/12/18 22:47 06/12/18 14:00 Intake and Output: 06/12/18 06/13/18 18:59 06:59 Intake Total 1880 980 Output Total 2700 Balance -820 980 - Medications Medications: Current Medications Acetaminophen (Tylenol 325mg Tab) 650 mg PO Q4H PRN PRN Reason: pain and fever Last Admin: 06/12/18 17:17 Dose: 650 mg Acetaminophen (Tylenol 325mg Tab) 650 mg PO Q6 PRN PRN Reason: TEMP>=99.5F Acetaminophen (Tylenol 650 Mg Supp) 650 mg RC Q6H PRN PRN Reason: TEMP>=99.5F Albuterol/Ipratropium (Duoneb 3 Mg/0.5 Mg (3 Ml) Ud) 3 ml IH Q2H PRN PRN Reason: Shortness of Breath Alprazolam (Xanax) 0.25 mg PO BID [facility]; Protocol Stop: 06/16/18 18:01 Last Admin: 06/12/18 17:16 Dose: 0.25 mg Alprazolam (Xanax) 0.25 mg PO HS [facility] Stop: 06/16/18 22:01 Last Admin: 06/12/18 22:46 Dose: 0.25 mg Apixaban (Eliquis) 2.5 mg PO BID [facility]; Protocol Last Admin: 06/12/18 17:15 Dose: 2.5 mg Aspirin (Aspirin Chewable) 81 mg PO DAILY [facility] Last Admin: 06/12/18 09:52 Dose: 81 mg Atorvastatin Calcium (Lipitor) 40 mg PO HS [facility] Last Admin: 06/12/18 22:46 Dose: 40 mg Cholecalciferol (Vitamin D) 2,000 intlu PO DAILY [facility] Last Admin: 06/12/18 09:51 Dose: 2,000 intlu Diphenhydramine HCl (Benadryl) 25 mg PO Q8H PRN PRN Reason: Allergy symptoms Last Admin: 06/12/18 22:46 Dose: 25 mg Divalproex Sodium (Depakote Sprinkles) 125 mg PO BID [facility]; Protocol Last Admin: 06/12/18 17:14 Dose: 125 mg Docusate Sodium (Colace) 100 mg PO TID [facility] Last Admin: 06/12/18 17:16 Dose: 100 mg Furosemide (Lasix) 40 mg IVP Q12 [facility] Last Admin: 06/12/18 22:47 Dose: 40 mg Ceftazidime/Avibactam 1.25 gm/ (Sodium Chloride) 100 mls @ 50 mls/hr IVPB Q8H [facility]; Protocol Stop: 06/15/18 17:46 Last Admin: 06/12/18 18:17 Dose: 50 mls/hr Levalbuterol HCl (Xopenex) 0.63 mg IH [id number] [facility] Last Admin: 06/12/18 20:07 Dose: Not Given Levothyroxine Sodium (Synthroid) 25 mcg PO DAILY [facility] Last Admin: 06/12/18 09:51 Dose: 25 mcg Losartan Potassium (Cozaar) 100 mg PO DAILY [facility] Last Admin: 06/12/18 09:54 Dose: 100 mg Metoprolol Tartrate (Lopressor) 50 mg PO BID [facility] Last Admin: 06/12/18 17:15 Dose: 50 mg Multivitamins (Thera Tab) 1 tab PO DAILY [facility] Last Admin: 06/12/18 09:51 Dose: 1 tab Ondansetron HCl (Zofran Inj) 4 mg IVP Q4H PRN PRN Reason: Nausea/Vomiting Ondansetron HCl (Zofran Inj) 4 mg IVP ONCE PRN PRN Reason: Nausea/Vomiting Stop: 06/12/18 23:59 Pantoprazole Sodium (Protonix Ec Tab) 40 mg PO ACB [facility] Last Admin: 06/12/18 07:59 Dose: 40 mg Polyethylene Glycol (Miralax) 17 gm PO BID [facility] Last Admin: 06/12/18 17:18 Dose: 17 gm Potassium Chloride (K-Dur 20 Meq Er Tab) 20 meq PO DAILY [facility] Last Admin: 06/12/18 09:52 Dose: 20 meq Tamsulosin HCl (Flomax) 0.4 mg PO DAILY [facility] Last Admin: 06/12/18 09:51 Dose: 0.4 mg - Labs Labs: 06/12/18 06:15 06/12/18 06:15 PT 13.5 SECONDS (9.4-12.5) H 06/09/18 06:45 INR 1.17 06/09/18 06:45 APTT 27.0 Seconds (25.1-36.5) 06/09/18 06:45 - Constitutional Appears: Chronically Ill - Head Exam Head Exam: NORMAL INSPECTION - Respiratory Exam Respiratory Exam: Decreased Breath Sounds - Cardiovascular Exam Cardiovascular Exam: +S1, +S2 - GI/Abdominal Exam GI & Abdominal Exam: Soft. absent: Tenderness Assessment and Plan - Assessment and Plan (Free Text) Plan: Assessment consider complicated UTI with multidrug-resistant Klebsiella in this patient with Sevilla catheter use history of right leg infected venous stasis ulcers, with MRSA and Pseudomonas acute CVA with right sided weakness and residual aphasia S/P tPA infusion history of left lower extremity skin and skin structure infection with Klebsiella and MRSA in a patient with chronic venous stasis ulcers with no evidence of abscess or osteomyelitis on MRI, clinically improving Probable CHF exacerbation chronic systolic CHF with EF 25% chronic atrial fibrillation chronic lymphedema with chronic venous stasis COPD HTN history of gastric bypass surgery history of left knee surgery Plan continue Avycaz (renally-adjusted) -day 6 of up to 7 days initial urine cx showed Enterococcus and Klebsiella but subsequent one showed only the Klebsiella (Enterococcus probable contaminant then since it did not persist) follow up results of the cystoscopy will continue to monitor clinically
[2018-06-13] MEDS ORDERED: DOBUTamine 500mg/250ml D5W 500 MG/250 ML BAG IV PRN (14:24)
[2018-06-13] MEDS: Divalproex 125 mg EC Sprinkle Cap PO SCH (17:36)
[2018-06-13] MEDS: Cholecalciferol 1,000 INTLU TAB PO SCH (17:36)
[2018-06-14] MEDS: Levalbuterol 0.63 MG/3 ML Inhal Soln UD IH SCH ×4 (01:42→19:57)
[2018-06-14] MEDS: Pantoprazole 40 mg EC Tab PO SCH ×2 (05:17→09:30)
[2018-06-14] MEDS: Divalproex 125 mg EC Sprinkle Cap PO SCH ×2 (11:01→17:51)
[2018-06-14] MEDS: Potassium Chloride 20 mEq ER Tab PO SCH (11:02)
[2018-06-14] MEDS: Cholecalciferol 1,000 INTLU TAB PO SCH (11:03)
[2018-06-14] MEDS: Levothyroxine 25 MCG TAB PO SCH (11:03)
[2018-06-14] MEDS: POLYETHYLENE GLYCOL 3350 17 GM/Dose PACKET PO SCH ×2 (11:03→19:00)
[2018-06-14] MEDS: Multivitamin Therapeutic Tab PO SCH (11:03)
--- NOTE | 2018-06-14 16:19 | CP.PCM.PN ---
Subjective - Date & Time of Evaluation Date of Evaluation: 06/14/18 Time of Evaluation: 14:00 - Subjective Subjective: No fevers, not in distress, comfortable in bed. Objective - Vital Signs/Intake and Output Vital Signs (last 24 hours): Temp Pulse Resp BP Pulse Ox 97 F L 90 20 110/63 97 06/14/18 08:03 06/14/18 10:59 06/14/18 08:03 06/14/18 11:02 06/14/18 08:03 Intake and Output: 06/14/18 06/14/18 06:59 18:59 Intake Total 500 Output Total 600 Balance -100 - Medications Medications: Current Medications Acetaminophen (Tylenol 325mg Tab) 650 mg PO Q4H PRN PRN Reason: pain and fever Last Admin: 06/13/18 01:26 Dose: 650 mg Acetaminophen (Tylenol 325mg Tab) 650 mg PO Q6 PRN PRN Reason: TEMP>=99.5F Acetaminophen (Tylenol 650 Mg Supp) 650 mg RC Q6H PRN PRN Reason: TEMP>=99.5F Albuterol/Ipratropium (Duoneb 3 Mg/0.5 Mg (3 Ml) Ud) 3 ml IH Q2H PRN PRN Reason: Shortness of Breath Alprazolam (Xanax) 0.25 mg PO BID [facility]; Protocol Stop: 06/16/18 18:01 Last Admin: 06/14/18 11:00 Dose: 0.25 mg Alprazolam (Xanax) 0.25 mg PO HS [facility] Stop: 06/16/18 22:01 Last Admin: 06/13/18 21:21 Dose: 0.25 mg Apixaban (Eliquis) 2.5 mg PO BID [facility]; Protocol Last Admin: 06/14/18 11:02 Dose: 2.5 mg Aspirin (Aspirin Chewable) 81 mg PO DAILY [facility] Last Admin: 06/14/18 11:01 Dose: 81 mg Atorvastatin Calcium (Lipitor) 40 mg PO HS [facility] Last Admin: 06/13/18 21:20 Dose: 40 mg Cholecalciferol (Vitamin D) 2,000 intlu PO DAILY [facility] Last Admin: 06/14/18 11:03 Dose: 2,000 intlu Diphenhydramine HCl (Benadryl) 25 mg PO Q8H PRN PRN Reason: Allergy symptoms Last Admin: 06/13/18 21:20 Dose: 25 mg Divalproex Sodium (Depakote Sprinkles) 250 mg PO BID [facility]; Protocol Last Admin: 06/14/18 11:01 Dose: 250 mg Docusate Sodium (Colace) 100 mg PO TID [facility] Last Admin: 06/14/18 10:59 Dose: 100 mg Furosemide (Lasix) 40 mg IVP Q12 [facility] Last Admin: 06/14/18 11:02 Dose: 40 mg Ceftazidime/Avibactam 1.25 gm/ (Sodium Chloride) 100 mls @ 50 mls/hr IVPB Q8H [facility]; Protocol Stop: 06/15/18 17:46 Last Admin: 06/14/18 10:59 Dose: 50 mls/hr Levalbuterol HCl (Xopenex) 0.63 mg IH [id number] [facility] Last Admin: 06/14/18 07:53 Dose: 0.63 mg Levothyroxine Sodium (Synthroid) 25 mcg PO DAILY [facility] Last Admin: 06/14/18 11:03 Dose: 25 mcg Lorazepam (Ativan) 0.5 mg IV Q6 PRN; Protocol PRN Reason: agitation/anxiety Last Admin: 06/13/18 19:06 Dose: 0.5 mg Losartan Potassium (Cozaar) 100 mg PO DAILY [facility] Last Admin: 06/14/18 11:01 Dose: 100 mg Metoprolol Tartrate (Lopressor) 50 mg PO BID [facility] Last Admin: 06/14/18 10:59 Dose: 50 mg Multivitamins (Thera Tab) 1 tab PO DAILY [facility] Last Admin: 06/14/18 11:03 Dose: 1 tab Ondansetron HCl (Zofran Inj) 4 mg IVP Q4H PRN PRN Reason: Nausea/Vomiting Pantoprazole Sodium (Protonix Ec Tab) 40 mg PO ACB [facility] Last Admin: 06/14/18 09:30 Dose: Not Given Polyethylene Glycol (Miralax) 17 gm PO BID [facility] Last Admin: 06/14/18 11:03 Dose: 17 gm Potassium Chloride (K-Dur 20 Meq Er Tab) 20 meq PO DAILY [facility] Last Admin: 06/14/18 11:02 Dose: 20 meq Risperidone (Risperdal Tab) 0.5 mg PO BID [facility]; Protocol PRN Reason: psychosis/agitaiton Last Admin: 06/13/18 21:20 Dose: 0.5 mg Tamsulosin HCl (Flomax) 0.4 mg PO DAILY [facility] Last Admin: 06/14/18 11:02 Dose: 0.4 mg - Labs Labs: 06/13/18 06:00 06/13/18 06:00 PT 13.5 SECONDS (9.4-12.5) H 06/09/18 06:45 INR 1.17 06/09/18 06:45 APTT 27.0 Seconds (25.1-36.5) 06/09/18 06:45 - Constitutional Appears: Chronically Ill - Head Exam Head Exam: NORMAL INSPECTION - Respiratory Exam Respiratory Exam: Decreased Breath Sounds - Cardiovascular Exam Cardiovascular Exam: +S1, +S2 - GI/Abdominal Exam GI & Abdominal Exam: Soft. absent: Tenderness Assessment and Plan - Assessment and Plan (Free Text) Plan: Assessment consider complicated UTI with multidrug-resistant Klebsiella in this patient with Sevilla catheter use history of right leg infected venous stasis ulcers, with MRSA and Pseudomonas acute CVA with right sided weakness and residual aphasia S/P tPA infusion history of left lower extremity skin and skin structure infection with Klebsiella and MRSA in a patient with chronic venous stasis ulcers with no evidence of abscess or osteomyelitis on MRI, clinically improving Probable CHF exacerbation chronic systolic CHF with EF 25% chronic atrial fibrillation chronic lymphedema with chronic venous stasis COPD HTN history of gastric bypass surgery history of left knee surgery Plan continue Avycaz (renally-adjusted) -day 7 of up to 7 days initial urine cx showed Enterococcus and Klebsiella but subsequent one showed only the Klebsiella (Enterococcus probable contaminant then since it did not persist) follow up results of the cystoscopy will continue to monitor clinically
--- NOTE | 2018-06-15 00:34 | PN ---
DATE: 06/14/2018 SUBJECTIVE: The patient was seen lying in bed in room 563, bed 1. The patient was seen around 9:00 a.m. today this morning. The patient's overnight nurse's notes were reviewed. The patient was intermittently found to be screaming overnight in the lab. The patient slept well during the night. PHYSICAL EXAMINATION: VITAL SIGNS: T-max is 98. Heart rate 80-90; blood pressure is 148/72, 111/73, 110/63, 128/52; respirations 20; O2 sat 98%. Intake/output are 1100 and 300. HEENT: Head examination normocephalic, atraumatic. HEENT examination shows pinkish conjunctivae, anicteric sclerae. No oropharyngeal lesion. NECK: Short and supple. CHEST: Kyphosis. LUNGS: Shows no audible rales, crackles or wheezing. CARDIOVASCULAR: S1 and S2. Irregular rhythm. Positive systolic murmur, right second intercostal space, left second intercostal space. ABDOMEN: Morbidly obese. Positive suprapubic cystostomy. Positive healed surgical scar of gastric bypass surgery. GENITALIA: Male. Sevilla catheter removed. EXTREMITY: Shows chronic skin discoloration and 1+ pitting edema of the lower extremity. MUSCULOSKELETAL: Shows a body mass index of 44. Weight is 262. NEUROLOGIC: Gait examination not tested. DIAGNOSTICS: From 06/13/2018 was reviewed. No new diagnostics on 06/14/2018. IMPRESSION AND PLAN: 1. Gross hematuria. 2. Voiding dysfunction. 3. Status post Lap-Band at gastroesophageal junction. 4. Receptive cognitive deficit. 5. Expressive language deficit. 6. Dysarthria and oroverbal apraxia. 7. Hypertension. 8. Atrial fibrillation. 9. Hematuria. 10. Normocytic anemia with granulocytosis. 11. Transient thrombocytopenia. 12. Acute kidney injury with underlying chronic kidney disease stage 3. 13. History of hypothyroidism. 14. Multidrug-resistant Klebsiella pneumoniae urinary tract infection. 15. Status post suprapubic cystostomy placement and removal of the Sevilla catheter. 16. Proteinuria, ketonuria, hematuria, pyuria, bacteriuria and multidrug-resistant Klebsiella pneumoniae urinary tract infection. 17. History of cerebrovascular accident with right hemiparesis and expressive aphasia, apraxia and dysarthria. 18. Chronic lymphedema of the lower extremity with bilateral lower extremity venous stasis. 19. Anticoagulation requiring atrial fibrillation. 20. History of gastric bypass surgery. 21. Gait dysfunction. 22. Deconditioning. 23. Super morbid obesity with elevated body mass index of 44. 24. Moderately reduced right ventricular systolic function. 25. Moderately dilated left atrium. 26. Moderate tricuspid regurgitation and severe pulmonary hypertension with right ventricular systolic pressure of 60 mmHg. 27. Mildly thickened mitral valve with trace mitral regurgitation. 28. Thickened aortic valve. 29. Urinary retention, voiding dysfunction and neurogenic bladder with gross hematuria. 30. Status post cystogram and insertion of punch cystostomy tube and cystoscopy. 31. Percutaneous suprapubic cystostomy placement, cystoscopy, cystogram. 32. Constipation. 33. Prostatic hypertrophy. 34. Hypokalemia. 35. Hypothyroidism. 36. Hypovitaminosis D. 37. Expressive aphasia. Plan at this time, the patient is to be continued on therapeutic intervention as per the MAR. The patient's current medications are as follows. The patient is aspirin 81 mg daily; Ativan 0.5 mg IV every 6 hours p.r.n., which is ordered by Psychiatry. The patient is on Avycaz 1.25 g IV every 8, Benadryl 25 mg p.o. every 8 hours p.r.n. Colace 100 mg three times a day, Cozaar 100 mg daily, Depakote 250 mg twice a day, DuoNeb nebulizer every 2 p.r.n., Eliquis 2.5 twice a day, Flomax 0.4 mg daily, K-Dur 20 mEq daily, Lasix 40 mg IV every 12, Lipitor 40 mg at bedtime, Lopressor 50 mg twice a day, Protonix 40 mg daily, Risperdal 0.5 mg b.i.d. p.r.n., Synthroid 25 mcg daily, multivitamin 1 tablet daily, Tylenol 650 mg p.o. suppository every 6 hours p.r.n., vitamin D3 at 2000 International Units daily, Xanax 0.25 p.o. b.i.d. and Xanax 0.25 at bedtime, Xopenex nebulizer 0.63 mg every 6 hours and Zofran 4 mg IV every 4 hours p.r.n. for nausea and vomiting. The patient has been ordered incentive spirometry, oxygen 2 L, regular diet, PRASHANT stockings, SCDs, head of the bed at 30 degrees, out of bed to chair, physical therapy, occupational therapy, speech therapy and swallow evaluation were ordered. The patient was seen by Training Officer yesterday. The patient is accepted to [facility] with and the family in agreement. The patient will be discharged on Saturday after completion of the patient's IV antibiotic, Avycaz. The patient's discharge medications will be Tylenol 650 mg p.o. suppository every 6 p.r.n., Xanax 0.25 mg at bedtime, Xanax 0.25 b.i.d., Lac-Hydrin lotion to the affected area twice a day, Eliquis 2.5 mg twice a day, aspirin 81 mg daily, Lipitor 40 mg daily, vitamin D3 at 2000 International Units daily, Depakote 250 mg twice a day, Colace 100 mg three times a day, Lasix 40 or 80 mg twice a day, Xopenex nebulizer 0.63 mg every 6 hours, Synthroid 25 mcg daily, Linzess 290 mcg daily, Cozaar 100 mg daily, Lopressor 50 mg twice a day, multivitamin 1 tablet daily, Protonix 40 mg daily, K-Dur 20 mEq daily, Risperdal 0.5 mg b.i.d. p.r.n., Flomax 0.4 mg daily. At present, the patient will be continued on the above therapeutic intervention. The patient is scheduled for discharge to [facility]. Dictated and electronically signed, not read. Rashad Brown MD
[2018-06-15] MEDS: Levalbuterol 0.63 MG/3 ML Inhal Soln UD IH SCH ×3 (01:15→12:59)
[2018-06-15 08:25] VITALS: BP 106/67; PULSE 65; RESP 18; TEMP 98.3; O2SAT 95
--- NOTE | 2018-06-15 09:37 | PN ---
DATE: 06/15/2018 SUBJECTIVE: The patient is in room 563, bed 1, [facility] in [place]. The patient was admitted with sepsis, urinary tract infection, pneumonia. The patient has past history of dysuria. He has history of hypertension, atrial fibrillation, history of cerebrovascular accident, right hemiparesis. He has expressive aphasia. The patient has had procedure done by Dr. Nance, urologist, cystostomy. The patient is awaiting to be transferred to subacute care [facility], [facility]. PHYSICAL EXAMINATION: GENERAL: This morning, he is comfortable. VITAL SIGNS: Shows the pulse is 80, blood pressure 130/64, respirations are 20 per minute, O2 sat is 98% on room air. HEENT: The patient's head appears to be normocephalic. NECK: The thyroid is not enlarged. The patient has no lymphadenopathy in the neck. LUNGS: Trachea central. Breath sounds are vesicular. No adventitious sounds . HEART: Atrial fibrillation with moderate ventricular response. ABDOMEN: Soft. Liver and spleen not palpable. He has evidence of cystostomy. INVESTMENT TRADER: He has evidence of right hemiparesis from stroke. MEDICATIONS: The patient's medication list consists of aspirin. The patient is on Atrovent 0.5 mg IV p.r.n. for agitation. The patient is on antibiotic, ceftazidime/avibactam every 8 hours. The patient is on Colace, losartan for blood pressure. The patient is on Depakote for seizure, albuterol for chronic lung disease, Eliquis 2.5 mg b.i.d. for atrial fibrillation to prevent clot formation. The patient is on Flomax, potassium chloride, Lasix, Lipitor, metoprolol. The patient is also getting pantoprazole, Risperdal 0.5 mg p.o. b.i.d., Synthroid 25 mcg, multivitamin. The patient is on vitamin D and Xanax. The patient's EKG shows atrial fibrillation. Chest x-ray shows improvement from prior diagnosis of pneumonia. ASSESSMENT AND PLAN: The patient's condition seemed to be clinically stable. He is waiting transfer to subacute rehab for further medical management. Kanaragayer Wignarajan, MD [facility] # [id number]
[2018-06-15] MEDS: Divalproex 125 mg EC Sprinkle Cap PO SCH (11:14)
[2018-06-15] MEDS: Potassium Chloride 20 mEq ER Tab PO SCH (11:15)
[2018-06-15] MEDS: Levothyroxine 25 MCG TAB PO SCH (11:17)
[2018-06-15] MEDS: Cholecalciferol 1,000 INTLU TAB PO SCH (11:17)
[2018-06-15] MEDS: Multivitamin Therapeutic Tab PO SCH (11:17)
[2018-06-15] MEDS: POLYETHYLENE GLYCOL 3350 17 GM/Dose PACKET PO SCH (11:17)
[2018-06-15] MEDS: Pantoprazole 40 mg EC Tab PO SCH (11:17)
--- NOTE | 2018-06-16 08:22 | PN ---
Oscar Andres MD [facility] # [id number] [facility]AR[facility]
--- NOTE | 2018-06-16 08:24 | PN ---
DATE: 06/13/2018 SUBJECTIVE: The patient is seen lying in the bed in room 563, bed 1. The patient is seen lying in the bed. The patient is comfortable having breakfast. The patient's overnight nurse's notes were reviewed. The patient seen by urologist. PHYSICAL EXAMINATION: VITAL SIGNS: T-max 97.4; pulse 96; blood pressure 168/78, 111/72; respiration 18; O2 sat 97%. HEENT: Head: Normocephalic, atraumatic. HEENT examination shows pink conjunctivae. Anicteric sclerae. No oropharyngeal lesion. No neck rigidity. CHEST: Symmetrical. LUNGS: No audible rales, crackles or wheezing. Decreased breath sound at the bases. CARDIOVASCULAR: S1, S2, regular rhythm. Positive systolic murmur at left sternal border, right second intercostal space, left second intercostal space. ABDOMEN: Obese. Positive bowel sound. Positive suprapubic cystostomy. Sev[place] catheter removed. Positive surgical scar of gastric sleeve. EXTREMITIES: Lower extremity shows trace swelling of the lower extremity, chronic skin changes of the lower extremity. MUSCULOSKELETAL: Examination shows a body mass index of 44. Gait examination is not tested. NEUROLOGIC: The patient has expressive aphasia and dysarthria and apraxia. DIAGNOSTICS: 06/13, CBC is within normal limits. Chemistry is significant for BUN of 24, creatinine 1.8, total bili 2.2. Rest of the CMP, LFTs are normal. IMPRESSION: 1. Voiding dysfunction. 2. Status post gastric lap band. 3. Multidrug resistant Klebsiella pneumoniae urinary tract infection. 4. Hypertension. 5. Anticoagulation dependent. 6. Transient normocytic anemia. 7. Granulocytosis. 8. Transient thrombocytopenia. 9. Acute kidney injury with underlying chronic kidney disease stage III. 10. Mild hyperbilirubinemia. 11. Morbid obesity with elevated body mass index of 44. 12. Multidrug resistance Klebsiella pneumoniae urinary tract infection with proteinuria, hematuria, pyuria, bacteriuria. 13. Gait dysfunction. 14. Severe deconditioning. 15. Atrial fibrillation. 16. History of cerebrovascular accident with right hemiparesis with apraxia, expressive aphasia and dysarthria. 17. Urinary retention with voiding dysfunction, neurogenic bladder. 18. Hematuria. 19. Neurogenic bladder. 20. Status post cystogram. 21. Insertion of suprapubic cystostomy. 22. Constipation. 23. Prostatic hypertrophy. 24. Hypokalemia. 25. Hypothyroidism. 26. Hypovitaminosis D. 27. Anxiety disorder. 28. Expressive aphasia. 29. Episodic agitation and questionable behavioral disorder. PLAN: At this time, the patient seen by physical therapist. The patient seen by Traffic Control Flagger. The patient is accepted to [facility]. The patient and the family is agreeable to. The patient will need to complete IV antibiotics prior to discharge to [facility]. CURRENT MEDICATIONS: Ecotrin 81 mg daily, Ativan 0.5 mg IV every 6 p.r.n., Avycaz 1.25 g IV every 8, Benadryl 25 mg p.o. every 8 hours p.r.n., Colace 100 mg three times a day, Cozaar 100 mg daily, Depakote 250 mg twice a day, DuoNeb nebulizer every 2 hours p.r.n., Eliquis 2.5 mg twice a day, Flomax 0.4 mg daily, K-Dur 20 mEq daily, Lasix 40 mg IV every 12, Lipitor 40 mg at bedtime, Lopressor 50 mg twice a day, MiraLax 17 g twice a day, Protonix 40 mg daily, Risperdal 0.5 mg b.i.d. p.r.n., Synthroid 25 mcg daily, multivitamin 1 tablet daily, Tylenol 650 mg p.o. or suppository every 6 p.r.n., vitamin D3 2000 International Units daily, Xanax 0.25 b.i.d., Xanax 0.25 at bedtime, Xopenex nebulizer 0.63 mg every 6 hours, Zofran 4 mg IV every 4 p.r.n. The patient has been ordered physical therapy, occupational therapy, ambulation therapy, out of bed to chair, elevation of lower extremities and swelling areas on two pillows. Head of the bed at 30 degrees. Out of bed to recliner with assistance and chair. SCDs, DVT prophylaxis, daily weights, occupational therapy, physical therapy ordered. The patient is for discharge to [facility] after completion of IV antibiotics. Dictated and electronically signed, not read. Rashad MD [facility] # [id number]
== END 2018-06-15 15:00 | DRG 699 ==
LOC: ED 16:10 → ERH 21:54 → 5RNO 22:51 → OBSVTOIN 06-08 20:08 → 5RNO 06-09 20:39
PROVIDERS: ADMIT Internal Medicine; ATTEND Internal Medicine
PROC: 3E0F7GC Introduction of Other Therapeutic Substance into Respiratory Tract, Via Natural or Artificial Opening (ICD-10-PCS; 2018-06-06)
PROC: BT101ZZ Fluoroscopy of Bladder using Low Osmolar Contrast (ICD-10-PCS; 2018-06-11)
PROC: 0T9B30Z Drainage of Bladder with Drainage Device, Percutaneous Approach (ICD-10-PCS; principal; 2018-06-11 09:30)
PROC: 0TJB8ZZ Inspection of Bladder, Via Natural or Artificial Opening Endoscopic (ICD-10-PCS; 2018-06-11 09:30)
DX: N31.9 Neuromuscular dysfunction of bladder, unspecified (principal); T83.518A Infection and inflammatory reaction due to other urinary catheter, initial encounter; I69.351 Hemiplegia and hemiparesis following cerebral infarction affecting right dominant side; Z68.43 Body mass index [BMI] 50.0-59.9, adult; I13.0 Hypertensive heart and chronic kidney disease with heart failure and stage 1 through stage 4 chronic kidney disease, or unspecified chronic kidney disease; I50.22 Chronic systolic (congestive) heart failure; I42.9 Cardiomyopathy, unspecified; N39.0 Urinary tract infection, site not specified; N17.9 Acute kidney failure, unspecified; N18.4 Chronic kidney disease, stage 4 (severe); L97.829 Non-pressure chronic ulcer of other part of left lower leg with unspecified severity; L97.819 Non-pressure chronic ulcer of other part of right lower leg with unspecified severity; R31.0 Gross hematuria; I48.2 Chronic atrial fibrillation; J44.9 Chronic obstructive pulmonary disease, unspecified; E66.01 Morbid (severe) obesity due to excess calories; I69.320 Aphasia following cerebral infarction; N18.3 Chronic kidney disease, stage 3 (moderate); I27.20 Pulmonary hypertension, unspecified; B96.1 Klebsiella pneumoniae [K. pneumoniae] as the cause of diseases classified elsewhere; D69.6 Thrombocytopenia, unspecified; N40.1 Benign prostatic hyperplasia with lower urinary tract symptoms; R33.8 Other retention of urine; I87.2 Venous insufficiency (chronic) (peripheral); R45.87 Impulsiveness; E78.00 Pure hypercholesterolemia, unspecified; R26.9 Unspecified abnormalities of gait and mobility; I69.390 Apraxia following cerebral infarction; I69.322 Dysarthria following cerebral infarction; G47.33 Obstructive sleep apnea (adult) (pediatric); E03.9 Hypothyroidism, unspecified; D64.9 Anemia, unspecified; Z91.19 Patient's noncompliance with other medical treatment and regimen; Z79.01 Long term (current) use of anticoagulants; E55.9 Vitamin D deficiency, unspecified; G47.00 Insomnia, unspecified; F41.9 Anxiety disorder, unspecified; Z98.84 Bariatric surgery status; Z16.24 Resistance to multiple antibiotics; Z87.891 Personal history of nicotine dependence

== ENCOUNTER 2018-06-18 11:02 | Inpatient (IN) | payer MEDICARE ==
[2018-06-18 11:03] VITALS: PULSE 58
--- NOTE | 2018-06-18 11:23 | ED PDOC ---
Arrival/HPI - General Chief Complaint: Male Genitourinary Time Seen by Provider: 06/18/18 11:11 Historian: EMS - History of Present Illness Narrative History of Present Illness (Text): 63 y/o M w/ h/o CVA w/ aphasia, CHF, MRSA infection, urinary incontinence s/p supra pubic catheter placement presenting to the ED for a dislodged catheter. Patient was brought from [facility] after staff noted no urinary output from the suprapubic cathter in the last 24 hours. The patient's called and notified Dr. Mauricio Nance last night who advised the patient to pre The patient is unable to verbalize any other complaints at this time. A more complete HPI is unable to be completed at this time due to the patient's clinical condition Specialist: Dr. Mauricio Nance(urology) Time/Duration: Prior to Arrival Symptom Onset: Sudden Symptom Course: Unchanged Quality: Unable to Describe Activities at Onset: Rest Context: Home Past Medical History - Provider Review Nursing Documentation Reviewed: Yes - Travel History Have you recently traveled outside [place] w/in the past 3 mons?: No - Past History Past History: No Previous - Infectious Disease Hx of Infectious Diseases: None - Tetanus Immunization Tetanus Immunization: Unknown - Cardiac Hx Cardiac Disorders: Yes Hx Hypertension: Yes - Pulmonary Hx Chronic Obstructive Pulmonary Disease (COPD): Yes - Neurological HX Cerebrovascular Accident: Yes - HEENT Other/Comment: Aphasia - Renal Hx Renal Disorder: Yes - Endocrine/Metabolic Hx Endocrine Disorders: Yes Hx Hypothyroidism: Yes - Hematological/Oncological Hx Blood Transfusions: No - Integumentary Hx Dermatological Disorder: Yes (CELLULITIS TO LOWER EXTREMITY) - Musculoskeletal/Rheumatological Hx Arthritis: Yes Hx Falls: Yes Hx Osteoarthritis: Yes - Gastrointestinal Hx Gastroesophageal Reflux: Yes - Genitourinary/Gynecological Hx Genitourinary Disorders: Yes Other/Comment: HX: URINARY RETENTION ->CHACON CATH. - Psychiatric Hx Depression: Yes Hx Substance Use: Yes - Surgical History Other/Comment: suprapubic cath - Anesthesia Hx Anesthesia Reactions: No Hx Malignant Hyperthermia: No - Suicidal Assessment Feels Threatened In Home Enviroment: No Family/Social History - Physician Review Nursing Documentation Reviewed: Yes Family/Social History: No Known Family HX Smoking Status: Never Smoked Hx Alcohol Use: Yes Hx Substance Use: Yes Hx Substance Use Treatment: No Allergies/Home Meds Allergies/Adverse Reactions: Allergies No Known Allergies Allergy (Verified 06/18/18 11:06) Home Medications: Home Meds Medication Instructions Recorded Confirmed Linaclotide [Linzess] 1 cap PO DAILY 02/12/18 06/18/18 Atorvastatin [Lipitor] 40 mg PO HS 04/16/18 06/18/18 Albuterol/Ipratropium [Duoneb 3 1 vial IH Q2H PRN 06/18/18 06/18/18 mg/0.5 mg (3 ml) UD] DiphenhydrAMINE [Benadryl] 1 tab PO Q8H PRN 06/18/18 06/18/18 Divalproex [Depakote Sprinkles] 125 mg PO BID 06/18/18 06/18/18 Polyethylene Glycol 3350 [Miralax] 17 g PO BID 06/18/18 06/18/18 Review of Systems - Review of Systems Systems not reviewed;Unavailable: Uncooperative Physical Exam - Physical Exam Physical Exam Limitations: Uncooperative Vital Signs Reviewed: Yes Temperature: Afebrile Blood Pressure: Normal Pulse: Regular Respiratory Rate: Normal Appearance: Positive for: Well-Appearing, Non-Toxic, Comfortable Mental Status: Positive for: Agitated - Systems Exam Head: Present: Atraumatic, Normocephalic Pupils: Present: PERRL Extroacular Muscles: Present: EOMI Conjunctiva: Present: Normal Mouth: Present: Moist Mucous Membranes Neck: Present: Normal Range of Motion Respiratory/Chest: Present: Clear to Auscultation, Good Air Exchange. No: Respiratory Distress Cardiovascular: Present: Regular Rate and Rhythm, Normal S1, S2 Abdomen: Present: Normal Bowel Sounds, Other (Suprapubic catheter present in stoma with no urine visible output). No: Tenderness, Distention Genitourinary Male: Present: Normal External Genitalia. No: Circumcised Penis, Erythema Upper Extremity: Present: Normal Inspection, Capillary Refill < 2s. No: Cyanosis Lower Extremity: Present: Edema (edema to LEs b/l w/ chronic venous stasis ), Capillary Refill < 2 s Neurological: Present: GCS=15 Skin: Present: Warm, Dry, Normal Color Psychiatric: Present: Agitated Medical Decision Making ED Course and Treatment: Impression 63 y/o M w/ h/o dementia presenting with suprapubic catheter w/ no output Differential Diagnoses Include But Are Not Limited To: UTI Sepsis Plan --UA --Urine culture --Urology consult --Reassess & disposition Progress Notes 06/18/18 11:[address] Nance(urology) who states he would like catheter to be irrigated first and then if unable to yield any output, requests for CT a/p(w/o contrast) to be performed to determine if catheter is in the correct place. Plan endorsed to nurse. 06/18/18 14:46 Spoke to and updated him on patient, who states he is comfortable and asymptomatic at this time. Dr. Nance will come to see patient. 06/18/18 18:49 at the bedside stating he will accept patient for admission. He requests medical consult with Dr. Brown. - RAD Interpretation Narrative RAD Interpretations (Text): 06/18/[address] without contrast: Dictator : Marcos Galan MD FINDINGS: LOWER THORAX: A lap band is seen around the proximal stomach LIVER: Unremarkable. No gross lesion or ductal dilatation. GALLBLADDER AND BILE DUCTS: There is a 10 mm stone in the gallbladder. No evidence of cholecystitis. PANCREAS: Unremarkable. No gross lesion or ductal dilatation. SPLEEN: Unremarkable. ADRENALS: Unremarkable. No mass. KIDNEYS AND URETERS: Unremarkable. No hydronephrosis. No solid mass. Large simple cysts in the lower pole of the right kidney VASCULATURE: Unremarkable. No aortic aneurysm. BOWEL: Unremarkable. No obstruction. No gross mural thickening. APPENDIX: Unremarkable. Normal appendix. PERITONEUM: Unremarkable. No free fluid. No free air. LYMPH NODES: Unremarkable. No enlarged lymph nodes. BLADDER: The balloon tip suprapubic catheter is in satisfactory position within the bladder. The tip of the catheter is directed superiorly and invaginate the roof of the bladder. There is no evidence of perforation. REPRODUCTIVE: Unremarkable. BONES: No acute fracture. OTHER FINDINGS: None. IMPRESSION: The balloon tip suprapubic catheter is in satisfactory position within the bladder. The tip of the catheter is directed superiorly and invaginate the roof of the bladder. There is no evidence of perforation. Combination Presser: Radiologist Disposition/Present on Arrival - Present on Arrival Any Indicators Present on Arrival: Yes History of DVT/PE: No History of Uncontrolled Diabetes: Yes Urinary Catheter: Yes History Surgical Site Infection Following: None - Disposition Have Diagnosis and Disposition been Completed?: Yes Diagnosis: Suprapubic catheter dysfunction Disposition: HOSPITALIZED Disposition Time: 18:49 Patient Plan: Observation Condition: STABLE
[2018-06-18 11:29] VITALS: BMI 46.7
--- NOTE | 2018-06-18 14:30 | CT ---
Date of service: 06/18/2018 PROCEDURE: CT Abdomen and Pelvis without intravenous contrast HISTORY: no output from suprapubic catheter COMPARISON: None. TECHNIQUE: Without contrast.. Contrast dose: Radiation dose: Total exam DLP = 1140 mGy-cm. This CT exam was performed using one or more of the following dose reduction techniques: Automated exposure control, adjustment of the mA and/or kV according to patient size, and/or use of iterative reconstruction technique. FINDINGS: LOWER THORAX: A lap band is seen around the proximal stomach LIVER: Unremarkable. No gross lesion or ductal dilatation. GALLBLADDER AND BILE DUCTS: There is a 10 mm stone in the gallbladder. No evidence of cholecystitis. PANCREAS: Unremarkable. No gross lesion or ductal dilatation. SPLEEN: Unremarkable. ADRENALS: Unremarkable. No mass. KIDNEYS AND URETERS: Unremarkable. No hydronephrosis. No solid mass. Large simple cysts in the lower pole of the right kidney VASCULATURE: Unremarkable. No aortic aneurysm. BOWEL: Unremarkable. No obstruction. No gross mural thickening. APPENDIX: Unremarkable. Normal appendix. PERITONEUM: Unremarkable. No free fluid. No free air. LYMPH NODES: Unremarkable. No enlarged lymph nodes. BLADDER: The balloon tip suprapubic catheter is in satisfactory position within the bladder. The tip of the catheter is directed superiorly and invaginate the roof of the bladder. There is no evidence of perforation. REPRODUCTIVE: Unremarkable. BONES: No acute fracture. OTHER FINDINGS: None. IMPRESSION: The balloon tip suprapubic catheter is in satisfactory position within the bladder. The tip of the catheter is directed superiorly and invaginate the roof of the bladder. There is no evidence of perforation.
[2018-06-18] MEDS ORDERED: Albuterol-Ipratrop 3 mg / 0.5 (3 ml) UD IH PRN (19:59)
[2018-06-18 20:56] LABS: BASO # 0.01 K/mm3 (0.0-2.0); BASO % 0.1 % (0.0-3.0); EOS # 0.2 (0.0-0.7); EOS % 1.7 % (1.5-5.0); GRAN # 8.64 (1.4-6.5); GRAN % 80.7 % (50.0-68.0); HEMOGLOBIN 13.5 g/dL (14.0-18.0); LYMPH # 1.4 (1.2-3.4); LYMPH % 12.7 % (22.0-35.0); MEAN CELL VOLUME 91.5 fl (80.0-105.0); MEAN CORPUSCULAR HEMOGLOBIN 30.9 pg (25.0-35.0); MEAN CORPUSCULAR HGB CONC 33.8 g/dl (31.0-37.0); MEAN PLATELET VOLUME 9.9 fl (7.0-11.0); MONO # 0.5 (0.1-0.6); MONO % 4.8 % (1.0-6.0); RBC 4.37 10^6/uL (3.5-6.1); RED CELL DISTRIBUTION WIDTH 13.6 % (11.5-14.5); WHITE BLOOD COUNT 10.7 10^3/ul (4.5-11.0)
[2018-06-18 21:00] LABS: ALB/GLOB RATIO 1.1 (1.1-1.8); ALBUMIN 3.7 g/dL (3.0-4.8)
[2018-06-18 21:18] LABS: INR 1.1; PARTIAL THROMBOPLASTIN TIME 29.9 Seconds (25.1-36.5); PROTHROMBIN TIME 12.6 SECONDS (9.4-12.5)
[2018-06-18 21:31] LABS: URINE APPEARANCE CLOUDY (CLEAR); URINE BILIRUBIN NEGATIVE (NEGATIVE); URINE BLOOD LARGE (NEGATIVE); URINE COLOR LIGHT YELLOW (YELLOW); URINE GLUCOSE (UA) NEGATIVE (NEGATIVE); URINE LEUKOCYTE ESTERASE MODERATE Leu/uL (NEGATIVE); URINE PROTEIN 100 mg/dL (<30 mg/dL); URINE UROBILINOGEN 0.2 E.U./dL (<1 E.U./dL)
[2018-06-18 22:03] LABS: URINE BACTERIA LARGE (NEG); URINE RBC 20 - 25 /hpf (0-2); URINE WBC 25 - 30 /hpf (0-6)
[2018-06-19] MEDS ORDERED: Pantoprazole 40 mg EC Tab PO SCH (07:30)
--- NOTE | 2018-06-19 09:30 | CP.PCM.CON ---
<George Gonzales - Last Filed: 06/19/18 16:38> History of Present Illness - History of Present Illness History of Present Illness: Nephrology Consult Note for Dr. Webb 63 year old male with a past medical history of CVA aphasia, pulmonary hypertension, moderate tricuspid regurgitation, suprapubic catheter, CKD stage III who presents to [facility] after having no urine output from suprapubic cathether for reportedly 24 hours plus while at [facility]. He aphasic so a history and ROS was obtained from staff and chart review. Labs show an elevated BUN/Cr compared to prior in the setting of decreased urine output. Review of CT shows relatively atrophic kidneys with cysts and also a large intra bladder baloon. Nephrology was consulted for TROY on CKD. PMH: CVA aphasia, pulmonary hypertension, moderate tricuspid regurgitation, suprapubic catheter, CKD stage III Past Surgical History: suprapubic catheter Allergies: NKA Social: ex-smoker Review of Systems - Review of Systems All systems: reviewed and no additional remarkable complaints except (as per HPI) Past Patient History - Infectious Disease Hx of Infectious Diseases: None - Tetanus Immunizations Tetanus Immunization: Unknown - Past Medical History & Family History Past Medical History?: Yes - Past Social History Smoking Status: Never Smoked - CARDIAC Hx Cardiac Disorders: Yes Hx Hypertension: Yes - PULMONARY Hx Chronic Obstructive Pulmonary Disease (COPD): Yes - NEUROLOGICAL HX Cerebrovascular Accident: Yes - HEENT Other/Comment: Aphasia - RENAL Hx Chronic Kidney Disease: Yes - ENDOCRINE/METABOLIC Hx Endocrine Disorders: Yes Hx Hypothyroidism: Yes - HEMATOLOGICAL/ONCOLOGICAL Hx Blood Transfusions: No - INTEGUMENTARY Hx Dermatological Problems: Yes (CELLULITIS TO LOWER EXTREMITY) - MUSCULOSKELETAL/RHEUMATOLOGICAL Hx Falls: Yes - GASTROINTESTINAL Hx Gastroesophageal Reflux: Yes - GENITOURINARY/GYNECOLOGICAL Hx Genitourinary Disorders: Yes Other/Comment: HX: URINARY RETENTION ->CHACON CATH. - PSYCHIATRIC Hx Depression: Yes Hx Substance Use: Yes - SURGICAL HISTORY Other/Comment: suprapubic cath - ANESTHESIA Hx Anesthesia Reactions: No Hx Malignant Hyperthermia: No Meds Allergies/Adverse Reactions: Allergies Allergy/AdvReac Type Severity Reaction Status Date / Time No Known Allergies Allergy Verified 06/18/18 11:06 - Medications Medications: Current Medications Acetaminophen (Tylenol 325mg Tab) 650 mg PO Q6 PRN PRN Reason: TEMP>=99.5F Acetaminophen (Tylenol 650 Mg Supp) 650 mg RC Q6H PRN PRN Reason: TEMP>=99.5F Albuterol/Ipratropium (Duoneb 3 Mg/0.5 Mg (3 Ml) Ud) 3 ml IH Q2H PRN PRN Reason: Shortness of Breath Alprazolam (Xanax) 0.25 mg PO BID [facility]; Protocol Stop: 06/26/18 10:01 Alprazolam (Xanax) 0.25 mg PO HS [facility]; Protocol Stop: 06/25/18 22:01 Last Admin: 06/18/18 22:13 Dose: 0.25 mg Apixaban (Eliquis) 2.5 mg PO BID [facility]; Protocol Aspirin (Aspirin Chewable) 81 mg PO DAILY [facility] Atorvastatin Calcium (Lipitor) 40 mg PO HS [facility] Last Admin: 06/18/18 22:09 Dose: 40 mg Cholecalciferol (Vitamin D) 2,000 intlu PO DAILY [facility] Diphenhydramine HCl (Benadryl) 25 mg PO Q8H PRN PRN Reason: Itching / Pruritus Last Admin: 06/18/18 22:06 Dose: 25 mg Divalproex Sodium (Depakote Sprinkles) 125 mg PO BID [facility]; Protocol Docusate Sodium (Colace) 100 mg PO TID [facility] Lactic Acid (Lac-Hydrin 12% Lotion (225 G)) 1 gm EXT BID [facility] Levothyroxine Sodium (Synthroid) 25 mcg PO DAILY [facility] Metoprolol Tartrate (Lopressor) 50 mg PO BID [facility] Multivitamins (Thera Tab) 1 tab PO DAILY [facility] Pantoprazole Sodium (Protonix Ec Tab) 40 mg PO ACB [facility] Polyethylene Glycol (Miralax) 17 gm PO BID [facility] Risperidone (Risperdal Tab) 0.25 mg PO BID [facility]; Protocol Last Admin: 06/18/18 21:00 Dose: 0.25 mg Tamsulosin HCl (Flomax) 0.4 mg PO DAILY [facility] Physical Exam - Constitutional Appears: Non-toxic - Head Exam Head Exam: ATRAUMATIC, NORMOCEPHALIC - Eye Exam Eye Exam: EOMI, Normal appearance - ENT Exam ENT Exam: Mucous Membranes Moist - Neck Exam Neck exam: Positive for: Normal Inspection - Respiratory Exam Respiratory Exam: Clear to Auscultation Bilateral. absent: Accessory Muscle Use - Cardiovascular Exam Cardiovascular Exam: RRR, +S1, +S2 - GI/Abdominal Exam GI & Abdominal Exam: Normal Bowel Sounds, Soft - Exam Additional comments: suprapubic catheter inserted - Extremities Exam Extremities exam: Positive for: normal inspection. Negative for: calf tenderness - Neurological Exam Neurological exam: Alert - Psychiatric Exam Psychiatric exam: Normal Affect, Normal Mood - Skin Skin Exam: Dry, Intact, Normal Color, Warm Results - Vital Signs Recent Vital Signs: Last Vital Signs Temp 97.4 F L 06/19/18 08:25 Pulse 79 06/19/18 08:25 Resp 18 06/19/18 08:25 BP 134/83 06/19/18 08:25 Pulse Ox 963 H 06/19/18 08:25 - Labs Result Diagrams: 06/18/18 20:29 06/19/18 10:14 Labs: Laboratory Results - last 24 hr 06/18/18 06/18/18 06/18/18 20:29 20:29 20:29 WBC 10.7 D RBC 4.37 Hgb 13.5 L Hct 40.0 L MCV 91.5 MCH 30.9 MCHC 33.8 RDW 13.6 Plt Count 189 MPV 9.9 Gran % 80.7 H Lymph % (Auto) 12.7 L Winkler % (Auto) 4.8 Eos % (Auto) 1.7 Baso % (Auto) 0.1 Gran # 8.64 H Lymph # (Auto) 1.4 Winkler # (Auto) 0.5 Eos # (Auto) 0.2 Baso # (Auto) 0.01 PT 12.6 H INR 1.10 APTT 29.9 Sodium 140 Potassium 4.1 Chloride 106 Carbon Dioxide 24 Anion Gap 15 BUN 60 H Creatinine 2.6 H Est GFR ( Amer) 31 Est GFR (Non-Af Amer) 25 Random Glucose 110 Calcium 9.0 Total Bilirubin 1.3 AST 29 ALT 34 Alkaline Phosphatase 123 Total Protein 7.1 Albumin 3.7 Globulin 3.4 Albumin/Globulin Ratio 1.1 Urine Color Urine Appearance Urine pH Ur Specific [place] Urine Protein Urine Glucose (UA) Urine Ketones Urine Blood Urine Nitrate Urine Bilirubin Urine Urobilinogen Ur Leukocyte Esterase Urine RBC Urine WBC Ur Epithelial Cells Urine Bacteria 06/18/18 20:56 WBC RBC Hgb Hct MCV MCH MCHC RDW Plt Count MPV Gran % Lymph % (Auto) Winkler % (Auto) Eos % (Auto) Baso % (Auto) Gran # Lymph # (Auto) Winkler # (Auto) Eos # (Auto) Baso # (Auto) PT INR APTT Sodium Potassium Chloride Carbon Dioxide Anion Gap BUN Creatinine Est GFR ( Amer) Est GFR (Non-Af Amer) Random Glucose Calcium Total Bilirubin AST ALT Alkaline Phosphatase Total Protein Albumin Globulin Albumin/Globulin Ratio Urine Color Light yellow Urine Appearance Cloudy Urine pH 6.0 Ur Specific [place] 1.020 Urine Protein 100 H Urine Glucose (UA) Negative Urine Ketones Negative Urine Blood Large H Urine Nitrate Negative Urine Bilirubin Negative Urine Urobilinogen 0.2 Ur Leukocyte Esterase Moderate H Urine RBC 20 - 25 Urine WBC 25 - 30 Ur Epithelial Cells 3 - 4 Urine Bacteria Large Assessment & Plan - Assessment and Plan (Free Text) Assessment: 63 year old male with past medical history of CVA with aphasia, pulmonary hypertension, moderate tricuspid regurgitation, CKD IIIsuprapubic catheter who presents for decreased urine output for 24 at [facility] and found to have an elevated Creatinine compared to baseline. TROY work-up initiated. Recommend continuing gentle hydration. We will follow with you Case was reviewed and discussed with attending physician, Dr. Webb - Date & Time Date: 06/19/18 Time: 16:43 <Abhay Webb - Last Filed: 06/19/18 20:36> Meds - Medications Medications: Current Medications Acetaminophen (Tylenol 325mg Tab) 650 mg PO Q6 PRN PRN Reason: TEMP>=99.5F Acetaminophen (Tylenol 650 Mg Supp) 650 mg RC Q6H PRN PRN Reason: TEMP>=99.5F Albuterol/Ipratropium (Duoneb 3 Mg/0.5 Mg (3 Ml) Ud) 3 ml IH Q2H PRN PRN Reason: Shortness of Breath Alprazolam (Xanax) 0.25 mg PO BID [facility]; Protocol Stop: 06/26/18 10:01 Last Admin: 06/19/18 17:50 Dose: Not Given Alprazolam (Xanax) 0.25 mg PO HS [facility]; Protocol Stop: 06/25/18 22:01 Last Admin: 06/18/18 22:13 Dose: 0.25 mg Apixaban (Eliquis) 2.5 mg PO BID [facility]; Protocol Last Admin: 06/19/18 17:49 Dose: Not Given Aspirin (Aspirin Chewable) 81 mg PO DAILY [facility] Last Admin: 06/19/18 09:47 Dose: 81 mg Atorvastatin Calcium (Lipitor) 40 mg PO HS [facility] Last Admin: 06/18/18 22:09 Dose: 40 mg Cholecalciferol (Vitamin D) 2,000 intlu PO DAILY [facility] Last Admin: 06/19/18 09:49 Dose: 2,000 intlu Diphenhydramine HCl (Benadryl) 25 mg PO Q8H PRN PRN Reason: Itching / Pruritus Last Admin: 06/18/18 22:06 Dose: 25 mg Divalproex Sodium (Depakote Sprinkles) 125 mg PO BID [facility]; Protocol Last Admin: 06/19/18 17:49 Dose: Not Given Docusate Sodium (Colace) 100 mg PO TID [facility] Last Admin: 06/19/18 17:49 Dose: Not Given Sodium Chloride (Sodium Chloride 0.45%) 1,000 mls @ 80 mls/hr IV .[id number] [facility] Last Admin: 06/19/18 15:34 Dose: 80 mls/hr Lactic Acid (Lac-Hydrin 12% Lotion (225 G)) 1 gm EXT BID [facility] Levothyroxine Sodium (Synthroid) 25 mcg PO DAILY [facility] Last Admin: 06/19/18 09:49 Dose: 25 mcg Metoprolol Tartrate (Lopressor) 50 mg PO BID [facility] Last Admin: 06/19/18 17:49 Dose: Not Given Multivitamins (Thera Tab) 1 tab PO DAILY [facility] Last Admin: 06/19/18 09:49 Dose: 1 tab Pantoprazole Sodium (Protonix Ec Tab) 40 mg PO ACB [facility] Polyethylene Glycol (Miralax) 17 gm PO BID [facility] Last Admin: 06/19/18 19:09 Dose: Not Given Risperidone (Risperdal Tab) 0.25 mg PO BID [facility]; Protocol Last Admin: 06/19/18 17:50 Dose: Not Given Tamsulosin HCl (Flomax) 0.4 mg PO DAILY [facility] Last Admin: 06/19/18 09:47 Dose: 0.4 mg Ziprasidone (Geodon Inj) 10 mg IM Q6H PRN; Protocol PRN Reason: Agitation Last Admin: 06/19/18 17:37 Dose: 10 mg Results - Vital Signs Recent Vital Signs: Last Vital Signs Temp 98.0 F 06/19/18 16:25 Pulse 93 H 06/19/18 16:25 Resp 20 06/19/18 16:25 BP 144/82 06/19/18 16:25 Pulse Ox 98 06/19/18 16:25 - Labs Result Diagrams: 06/18/18 20:29 06/19/18 10:14 Labs: Laboratory Results - last 24 hr 06/18/18 06/18/18 06/18/18 20:29 20:29 20:29 WBC 10.7 D RBC 4.37 Hgb 13.5 L Hct 40.0 L MCV 91.5 MCH 30.9 MCHC 33.8 RDW 13.6 Plt Count 189 MPV 9.9 Gran % 80.7 H Lymph % (Auto) 12.7 L Winkler % (Auto) 4.8 Eos % (Auto) 1.7 Baso % (Auto) 0.1 Gran # 8.64 H Lymph # (Auto) 1.4 Winkler # (Auto) 0.5 Eos # (Auto) 0.2 Baso # (Auto) 0.01 PT 12.6 H INR 1.10 APTT 29.9 Sodium 140 Potassium 4.1 Chloride 106 Carbon Dioxide 24 Anion Gap 15 BUN 60 H Creatinine 2.6 H Est GFR ( Amer) 31 Est GFR (Non-Af Amer) 25 Random Glucose 110 Uric Acid Calcium 9.0 Phosphorus Magnesium Total Bilirubin 1.3 Direct Bilirubin AST 29 ALT 34 Alkaline Phosphatase 123 Total Protein 7.1 Albumin 3.7 Globulin 3.4 Albumin/Globulin Ratio 1.1 Urine Color Urine Appearance Urine pH Ur Specific [place] Urine Protein Urine Glucose (UA) Urine Ketones Urine Blood Urine Nitrate Urine Bilirubin Urine Urobilinogen Ur Leukocyte Esterase Urine RBC Urine WBC Ur Epithelial Cells Urine Bacteria 06/18/18 06/19/18 20:56 10:14 WBC RBC Hgb Hct MCV MCH MCHC RDW Plt Count MPV Gran % Lymph % (Auto) Winkler % (Auto) Eos % (Auto) Baso % (Auto) Gran # Lymph # (Auto) Winkler # (Auto) Eos # (Auto) Baso # (Auto) PT INR APTT Sodium 140 Potassium 3.7 Chloride 106 Carbon Dioxide 23 Anion Gap 15 BUN 53 H Creatinine 2.3 H Est GFR ( Amer) 35 Est GFR (Non-Af Amer) 29 Random Glucose 118 H Uric Acid 10.8 H Calcium 9.2 Phosphorus 4.0 Magnesium 2.4 H Total Bilirubin 1.5 H Direct Bilirubin 0.3 AST 25 ALT 27 Alkaline Phosphatase 112 Total Protein 7.3 Albumin 3.7 Globulin 3.6 Albumin/Globulin Ratio 1.0 L Urine Color Light yellow Urine Appearance Cloudy Urine pH 6.0 Ur Specific [place] 1.020 Urine Protein 100 H Urine Glucose (UA) Negative Urine Ketones Negative Urine Blood Large H Urine Nitrate Negative Urine Bilirubin Negative Urine Urobilinogen 0.2 Ur Leukocyte Esterase Moderate H Urine RBC 20 - 25 Urine WBC 25 - 30 Ur Epithelial Cells 3 - 4 Urine Bacteria Large Attending/Attestation - Attestation I have personally seen and examined this patient.: Yes I have fully participated in the care of the patient.: Yes I have reviewed all pertinent clinical information: Yes Notes (Text): Patient seen and examined; I agree with the resident's note as above with the following additions/edits: 63 yo M w/ pmh of htn, s/p CVA w/ residual aphasia, severe pulm htn, neurogenic bladder and CKD IIIA, sent [place] to ED due to reported lack of urine output from suprapubic catheter; no other immediate history available; nephrology being consulted for TROY; Patient with neurogenic bladder, s/p difficult suprapubic catheter placement last month as well as MDR UTI; was discharged to [place] last week on diuretics and ARB per d/c summary; apparently had completed abx course during admission with 7 days of avycaz; Patient is able to answer yes/no questions; denies any nausea/vomiting or diarrhea; reports eating well; not short of breath; Patient euvolemic on exam; in no resp distress; abd not distended; Review of labs shows recent baseline serum creatinine of ~1.3, flucutating frequently, likely due to cardiorenal etiology; also with perisistent proteinuria on UA (3g on 24 hr urine done 4 years ago) though not particularly progressive CKD; serum creatinine had risen to 1.8 two days before discharge; Patient currently draining urine from suprapubic catheter, with lot of sediment/debris; unclear if flushed in ED; may have been obstructed though no residual hydronephrosis on imaging; possible component of pre-renal etiology with being on diuretic and ARB; -suprapubic catheter flushing q4h; -agree with holding diuretics for next 12-24 hrs though may need to restart soon given pulm htn status; -agree with holding losartan; continue B-blockers; -agree with gentle IVF w/ 1/2NS at 80 cc/hr; -avoid nephrotoxic agents (NSAIDS, phosphate enema); -f/u with urology; Thank you for this referral, we will continue to follow closely. 06/19/18 20:30
[2018-06-19] MEDS: Divalproex 125 mg EC Sprinkle Cap PO SCH ×2 (09:47→17:49)
[2018-06-19] MEDS: POLYETHYLENE GLYCOL 3350 17 GM/Dose PACKET PO SCH ×2 (09:48→19:09)
[2018-06-19] MEDS: Multivitamin Therapeutic Tab PO SCH (09:49)
[2018-06-19] MEDS: Cholecalciferol 1,000 INTLU TAB PO SCH (09:49)
[2018-06-19] MEDS: Levothyroxine 25 MCG TAB PO SCH (09:49)
[2018-06-19] MEDS ORDERED: Potassium Chloride 20 mEq ER Tab PO SCH (10:00)
[2018-06-19 10:33] LABS: ALBUMIN 3.7 g/dL (3.0-4.8); BILIRUBIN,DIRECT 0.3 mg/dL (0.0-0.4); CALCIUM 9.2 mg/dL (8.4-10.5); URIC ACID 10.8 mg/dL (3.5-8.5)
--- NOTE | 2018-06-19 15:06 | PN ---
DATE: 06/19/2018 SUBJECTIVE: The patient is seen lying in bed in room 368, bed 2. The patient is dysarthric. The patient is having difficulty with the speech, which is chronic. The patient does not appear to be in any distress. The patient's overnight nurse's notes have not been there. PHYSICAL EXAMINATION: VITAL SIGNS: T-max 97.4; pulse 79, 81, 69; blood pressure 134/83; respirations 18; O2 sat is 96-97%. Intake/output is not documented. HEENT: Head examination normocephalic, atraumatic. HEENT examination shows pink conjunctivae. Anicteric sclerae, dry oral mucosa. No neck rigidity. CHEST: Kyphosis. LUNGS: Shows no rales, crackles or wheezing. CARDIOVASCULAR: S1, S2. Irregular rhythm. Positive systolic murmur, left sternal border, right second intercostal space, left second intercostal space. ABDOMEN: Obese, soft. Positive bowel sound. Positive suprapubic cystostomy connected to the bag. GENITALIA: Male. RECTAL: Deferred. EXTREMITY: Shows chronic skin changes of the lower extremity. MUSCULOSKELETAL: Shows an elevated body mass index. DIAGNOSTICS: None from today. 06/18/2018 diagnostics reviewed. The patient's diagnostics from today are now available, which shows sodium 140, potassium 3.7, chloride 106, CO2 of 23, anion gap 15, BUN down to 53, creatinine is down to 2.3, glucose is 118, uric acid is 10.8, magnesium 2.4. IMPRESSION AND PLAN: 1. Suprapubic cystostomy malfunction with no urine output. 2. Acute kidney injury. 3. Transient hypotension. 4. Normocytic anemia. 5. Granulocytosis. 6. Anticoagulation-dependent atrial fibrillation. 7. Acute kidney injury with underlying chronic kidney disease stage 3/4. 8. Hyperuricemia. 9. Proteinuria, hematuria, pyuria, bacteriuria. 10. Dysarthria. 11. Apraxia. 12. History of cerebrovascular accident with mild right hemiparesis. 13. Gait dysfunction. 14. Deconditioning. 15. Status post gastric bypass and Lab Band. 16. Cholelithiasis. 17. Large right renal simple cyst. 18. Voiding dysfunction. 19. Cognitive deficit and expressive language deficit. 20. Dysarthria and oral verbal apraxia. 21. Bilateral lower extremity lymphedema with bilateral lower extremity venous stasis of the lower extremity. 22. Constipation. 23. History of urinary retention, voiding dysfunction, neurogenic bladder and history of gross hematuria. 24. Questionable behavioral disorder with episodic agitation. Plan at this time, the patient has been ordered by Urology for suprapubic catheter malfunction. In addition, Nephrology, Podiatry and Psychiatry evaluation requested. The patient is started on IV fluid half normal saline at 80 mL an hour. The patient's diuretics, Lasix and angiotensin receptor chong and potassium are held. The patient is on aspirin 81 mg daily, Benadryl 25 mg p.o. every 8 hours p.r.n. Colace 100 mg three times a day, Depakote 125 mg twice a day, DuoNeb nebulizer treatment every 2 hours p.r.n., Eliquis 2.5 mg b.i.d., Flomax 0.4 mg daily, Geodon 10 mg IM every 6 hours p.r.n., Lac-Hydrin lotion to the affected area twice a day of the lower extremity, Lipitor 40 mg at bedtime, Lopressor 50 mg twice a day, MiraLax 17 g twice a day, Protonix 40 mg daily, Risperdal 0.25 mg twice a day, Synthroid 25 mcg daily, multivitamin 1 tablet daily, Tylenol 650 mg p.o. suppository every 6 p.r.n., vitamin D3 at 2000 units daily, Xanax 0.25 mg b.i.d. and Xanax 0.25 mg at bedtime. The patient is on dysphagia modified consistency diet. The patient has been ordered SCDs, out of bed. We are awaiting further evaluation and recommendations by urologist regarding further urological intervention. The patient has been ordered physical therapy, occupational therapy, speech therapy, swallow evaluation. At present, the patient will be continued on the above therapeutic intervention. Awaiting Urology, Psychiatry, Nephrology and Podiatry evaluation and recommendation. Dictated and electronically signed, not read. Rashad Brown MD
[2018-06-19] MEDS: Sodium Chloride 0.45% 1,000 ML IV SCH (15:34)
[2018-06-19 16:26] VITALS: RESP 20
--- NOTE | 2018-06-19 18:24 | US ---
Date of service: 06/19/2018 PROCEDURE: Ultrasound of the Kidneys HISTORY: Assess degree of CKD, right renal cyst COMPARISON: None available. TECHNIQUE: Sonogram of the kidneys was performed using transabdominal technique in longitudinal and transverse projections. Color Doppler technique was utilized where prior renal ultrasound 01/29/[address] 06/18/2018. Required. FINDINGS: Limitations: Body habitus impedes sonic penetration to evaluate both kidneys. RIGHT KIDNEY: Measures: 12.0 x 6.7 x 5.9 cm. Right kidney is normal in size and overall contour with limited corticomedullary definition due to body habitus. A cyst is identified in the lower pole measuring 3.7 x 4.4 x 3.1 cm. This may be a simple cyst but is poorly defined due to body habitus. No stone, solid mass lesion or hydronephrosis visualized. LEFT KIDNEY: Measures: 9.3 x 5.3 x 5.8 cm. Right kidney is normal in size and overall contour with limited corticomedullary definition due to body habitus. No definitive stone, solid mass lesion or hydronephrosis visualized. OTHER FINDINGS: None. IMPRESSION: Limited exam due to body habitus however no obstructive uropathy is appreciate bilaterally. A cyst identified at the lower pole left kidney 4.4 cm greatest dimension.
[2018-06-19] MEDS: Ammonium Lactate 12% Lotion (225 g) EXT SCH (20:56)
[2018-06-20] MEDS: Sodium Chloride 0.45% 1,000 ML IV SCH ×2 (00:43→05:18)
[2018-06-20 07:08] LABS: CREATININE,RANDOM URINE 149 mg/dL
--- NOTE | 2018-06-20 07:16 | CP.PCM.PN ---
Subjective - Date & Time of Evaluation Date of Evaluation: 06/20/18 Time of Evaluation: 07:14 - Subjective Subjective: George Gonzales DO, PGY-2: Nephrology Progress Note for Dr. Webb Patient was seen and examined at bedside. No adverse event noted per nursing staff. Patient is somewhat lethargic this morning. He denies chest pain, nausea, or vomiting. 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 Objective - Vital Signs/Intake and Output Vital Signs (last 24 hours): Temp Pulse Resp BP Pulse Ox 98.0 F 93 H 20 144/82 98 06/19/18 16:25 06/19/18 16:25 06/19/18 16:25 06/19/18 16:25 06/19/18 16:25 Intake and Output: 06/20/18 06/20/18 06:59 18:59 Intake Total 1040 Balance 1040 - Medications Medications: Current Medications Acetaminophen (Tylenol 325mg Tab) 650 mg PO Q6 PRN PRN Reason: TEMP>=99.5F Acetaminophen (Tylenol 650 Mg Supp) 650 mg RC Q6H PRN PRN Reason: TEMP>=99.5F Albuterol/Ipratropium (Duoneb 3 Mg/0.5 Mg (3 Ml) Ud) 3 ml IH Q2H PRN PRN Reason: Shortness of Breath Alprazolam (Xanax) 0.25 mg PO BID [facility]; Protocol Stop: 06/26/18 10:01 Last Admin: 06/19/18 17:50 Dose: Not Given Alprazolam (Xanax) 0.25 mg PO HS [facility]; Protocol Stop: 06/25/18 22:01 Last Admin: 06/19/18 21:16 Dose: 0.25 mg Apixaban (Eliquis) 2.5 mg PO BID [facility]; Protocol Last Admin: 06/19/18 17:49 Dose: Not Given Aspirin (Aspirin Chewable) 81 mg PO DAILY [facility] Last Admin: 06/19/18 09:47 Dose: 81 mg Atorvastatin Calcium (Lipitor) 40 mg PO HS [facility] Last Admin: 06/19/18 21:17 Dose: 40 mg Cholecalciferol (Vitamin D) 2,000 intlu PO DAILY [facility] Last Admin: 06/19/18 09:49 Dose: 2,000 intlu Diphenhydramine HCl (Benadryl) 25 mg PO Q8H PRN PRN Reason: Itching / Pruritus Last Admin: 06/19/18 21:16 Dose: 25 mg Divalproex Sodium (Depakote Sprinkles) 125 mg PO BID [facility]; Protocol Last Admin: 06/19/18 17:49 Dose: Not Given Docusate Sodium (Colace) 100 mg PO TID [facility] Last Admin: 06/19/18 17:49 Dose: Not Given Sodium Chloride (Sodium Chloride 0.45%) 1,000 mls @ 80 mls/hr IV .[id number] [facility] Last Admin: 06/20/18 05:18 Dose: 80 mls/hr Lactic Acid (Lac-Hydrin 12% Lotion (225 G)) 1 gm EXT BID [facility] Last Admin: 06/19/18 20:56 Dose: Not Given Levothyroxine Sodium (Synthroid) 25 mcg PO DAILY [facility] Last Admin: 06/19/18 09:49 Dose: 25 mcg Metoprolol Tartrate (Lopressor) 50 mg PO BID [facility] Last Admin: 06/19/18 17:49 Dose: Not Given Multivitamins (Thera Tab) 1 tab PO DAILY [facility] Last Admin: 06/19/18 09:49 Dose: 1 tab Pantoprazole Sodium (Protonix Ec Tab) 40 mg PO ACB [facility] Last Admin: 06/19/18 20:56 Dose: Not Given Polyethylene Glycol (Miralax) 17 gm PO BID [facility] Last Admin: 06/19/18 19:09 Dose: Not Given Risperidone (Risperdal Tab) 0.25 mg PO BID [facility]; Protocol Last Admin: 06/19/18 21:16 Dose: 0.25 mg Tamsulosin HCl (Flomax) 0.4 mg PO DAILY [facility] Last Admin: 06/19/18 09:47 Dose: 0.4 mg Ziprasidone (Geodon Inj) 10 mg IM Q6H PRN; Protocol PRN Reason: Agitation Last Admin: 06/19/18 23:00 Dose: 10 mg - Labs Labs: 06/18/18 20:29 06/19/18 10:14 PT 12.6 SECONDS (9.4-12.5) H 06/18/18 20:29 INR 1.10 06/18/18 20:29 APTT 29.9 Seconds (25.1-36.5) 06/18/18 20:29 - Constitutional Appears: Non-toxic, Chronically Ill - Head Exam Head Exam: ATRAUMATIC, NORMOCEPHALIC - Eye Exam Eye Exam: EOMI, Normal appearance - ENT Exam ENT Exam: Mucous Membranes Moist - Neck Exam Neck Exam: Normal Inspection - Respiratory Exam Respiratory Exam: Clear to Ausculation Bilateral, NORMAL BREATHING PATTERN. absent: Accessory Muscle Use - Cardiovascular Exam Cardiovascular Exam: RRR, +S1, +S2 - Extremities Exam Extremities Exam: Normal Inspection - Neurological Exam Neurological Exam: Awake - Psychiatric Exam Psychiatric exam: Normal Affect, Normal Mood - Skin Skin Exam: Dry, Intact, Normal Color, Warm Assessment and Plan - Assessment and Plan (Free Text) Assessment: TROY secondary to neurogenic bladder in the setting of temporary malfunctioning suprapubic catheter in a patient with pulmonary hypertension and CKD IIIA - UA did show evidence of infection, recommend treating based on culture and sensitivity. -suprapubic catheter flushing q4h; -agree with holding diuretics for next 12-24 hrs though may need to restart soon given pulm htn status; -agree with holding losartan; continue B-blockers; -agree with gentle IVF w/ 1/2NS at 80 cc/hr; -avoid nephrotoxic agents (NSAIDS, phosphate enema); -f/u with urology We will continue to follow with you.
[2018-06-20 08:00] VITALS: BP 124/80; PULSE 71; TEMP 97; O2SAT 96
--- NOTE | 2018-06-20 08:01 | PCM.URO ---
Urology Progress Note - Objective Lab Studies: Reviewed (see previous dictated notes from 06/18 and 06/19 from gu standpoint pt with the spt in proper location when medically cleared we will discharge pt home full note to be dictated) Lab Results Last 24 Hours: Laboratory Results - last 24 hr 06/19/18 06/19/18 06/20/18 10:14 13:55 06:22 Sodium 140 Potassium 3.7 Chloride 106 Carbon Dioxide 23 Anion Gap 15 BUN 53 H Creatinine 2.3 H Est GFR ( Amer) 35 Est GFR (Non-Af Amer) 29 Random Glucose 118 H Uric Acid 10.8 H Calcium 9.2 Phosphorus 4.0 Magnesium 2.4 H Total Bilirubin 1.5 H Direct Bilirubin 0.3 AST 25 ALT 27 Alkaline Phosphatase 112 Total Protein 7.3 Albumin 3.7 Globulin 3.6 Albumin/Globulin Ratio 1.0 L 25-OH Vitamin D Total 39.5 Ur Random Creatinine 149 Ur Random Sodium 27 Intake & Output: Intake & Output 06/19/18 06/20/18 06/20/18 18:59 06:59 18:59 Intake Total 240 1040 Output Total 300 Balance -60 1040 Intake: IV 1040 Left Hand 1040 Oral 240 Output: Urine 300 Suprapubic 300 Other: # Bowel Movements 1 Vital Signs: Vital Signs - 24 hr 06/19/18 06/19/18 06/19/18 08:25 09:48 16:25 Temperature 97.4 F L 98.0 F Pulse Rate 79 79 93 H Respiratory 18 20 Rate Blood Pressure 134/83 134/83 144/82 O2 Sat by Pulse 963 H 98 Oximetry 06/20/18 07:59 Temperature 97 F L Pulse Rate 71 Respiratory 20 Rate Blood Pressure 124/80 O2 Sat by Pulse 96 Oximetry
--- NOTE | 2018-06-20 09:47 | CP.PCM.PCO ---
Physician Communication Note - Physician Communication Note Physician Communication Note: pt was refusing po xnax, changed to IVP ativan to avoid agitation/withdrawa
[2018-06-20] MEDS: Ammonium Lactate 12% Lotion (225 g) EXT SCH (10:47)
[2018-06-20] MEDS: POLYETHYLENE GLYCOL 3350 17 GM/Dose PACKET PO SCH (11:25)
[2018-06-20] MEDS: Multivitamin Therapeutic Tab PO SCH (11:26)
[2018-06-20] MEDS: Cholecalciferol 1,000 INTLU TAB PO SCH (11:26)
[2018-06-20] MEDS: Divalproex 125 mg EC Sprinkle Cap PO SCH (11:26)
[2018-06-20] MEDS: Levothyroxine 25 MCG TAB PO SCH (11:26)
--- NOTE | 2018-06-20 12:04 | CP.PCM.PN ---
<Loly Watts - Last Filed: 06/20/18 12:04> Subjective - Date & Time of Evaluation Date of Evaluation: 06/20/18 Time of Evaluation: 12:00 - Subjective Subjective: Podiatry progress note for Dr. Byers 63 yo male patient seen and evaluated at bedside with Dr. Byers for B/L lower extremity edema. Patient is resting comfortably. Patient unable to verbalize any new complaints or history. Unable to obtain full HPI. Objective - Vital Signs/Intake and Output Vital Signs (last 24 hours): Temp Pulse Resp BP Pulse Ox 97 F L 71 20 124/80 96 06/20/18 07:59 06/20/18 11:25 06/20/18 07:59 06/20/18 11:25 06/20/18 07:59 Intake and Output: 06/20/18 06/20/18 06:59 18:59 Intake Total 1040 Balance 1040 - Medications Medications: Current Medications Acetaminophen (Tylenol 325mg Tab) 650 mg PO Q6 PRN PRN Reason: TEMP>=99.5F Acetaminophen (Tylenol 650 Mg Supp) 650 mg RC Q6H PRN PRN Reason: TEMP>=99.5F Albuterol/Ipratropium (Duoneb 3 Mg/0.5 Mg (3 Ml) Ud) 3 ml IH Q2H PRN PRN Reason: Shortness of Breath Apixaban (Eliquis) 2.5 mg PO BID [facility]; Protocol Last Admin: 06/20/18 11:26 Dose: 2.5 mg Aspirin (Aspirin Chewable) 81 mg PO DAILY [facility] Last Admin: 06/20/18 11:26 Dose: 81 mg Atorvastatin Calcium (Lipitor) 40 mg PO HS [facility] Last Admin: 06/19/18 21:17 Dose: 40 mg Cholecalciferol (Vitamin D) 2,000 intlu PO DAILY [facility] Last Admin: 06/20/18 11:26 Dose: 2,000 intlu Diphenhydramine HCl (Benadryl) 25 mg PO Q8H PRN PRN Reason: Itching / Pruritus Last Admin: 06/19/18 21:16 Dose: 25 mg Divalproex Sodium (Depakote Sprinkles) 125 mg PO BID [facility]; Protocol Last Admin: 06/20/18 11:26 Dose: 125 mg Docusate Sodium (Colace) 100 mg PO TID [facility] Last Admin: 06/20/18 11:25 Dose: Not Given Sodium Chloride (Sodium Chloride 0.45%) 1,000 mls @ 80 mls/hr IV .[id number] [facility] Last Admin: 06/20/18 05:18 Dose: 80 mls/hr Lactic Acid (Lac-Hydrin 12% Lotion (225 G)) 1 gm EXT BID [facility] Last Admin: 06/20/18 10:47 Dose: Not Given Levothyroxine Sodium (Synthroid) 25 mcg PO DAILY [facility] Last Admin: 06/20/18 11:26 Dose: 25 mcg Lorazepam (Ativan) 0.5 mg IV BID [facility]; Protocol Last Admin: 06/20/18 11:26 Dose: 0.5 mg Lorazepam (Ativan) 0.5 mg IV HS [facility]; Protocol Metoprolol Tartrate (Lopressor) 50 mg PO BID [facility] Last Admin: 06/20/18 11:25 Dose: 50 mg Metronidazole (Flagyl) 500 mg PO Q8 [facility]; Protocol Stop: 06/25/18 14:01 Multivitamins (Thera Tab) 1 tab PO DAILY [facility] Last Admin: 06/20/18 11:26 Dose: 1 tab Pantoprazole Sodium (Protonix Ec Tab) 40 mg PO ACB [facility] Last Admin: 06/19/18 20:56 Dose: Not Given Polyethylene Glycol (Miralax) 17 gm PO BID [facility] Last Admin: 06/20/18 11:25 Dose: Not Given Risperidone (Risperdal Tab) 0.25 mg PO BID [facility]; Protocol Last Admin: 06/20/18 11:26 Dose: 0.25 mg Tamsulosin HCl (Flomax) 0.4 mg PO DAILY [facility] Last Admin: 06/20/18 11:26 Dose: 0.4 mg Ziprasidone (Geodon Inj) 10 mg IM Q6H PRN; Protocol PRN Reason: Agitation Last Admin: 06/19/18 23:00 Dose: 10 mg - Labs Labs: 06/18/18 20:29 06/19/18 10:14 PT 12.6 SECONDS (9.4-12.5) H 06/18/18 20:29 INR 1.10 06/18/18 20:29 APTT 29.9 Seconds (25.1-36.5) 06/18/18 20:29 - Constitutional Appears: Non-toxic - Extremities Exam Additional comments: Vasc: DP/PT pulses 2/4 b/l. Cap refill > 3 seconds to all digits. Skin temperature warm to warm from proximal to distal. +2 edema noted to bilateral lower extremity Neuro: Unable to assess secondary to patient's inability to communicate Ortho: Patient able to move digits Derm: Diffuse dermal changes, hyperpigmentation noted to b/l extremities. There are no open lesions, no drainage, no erythema, no purulence, no clinical signs of infection. - Neurological Exam Neurological Exam: Alert, Awake - Psychiatric Exam Psychiatric exam: Normal Affect, Normal Mood Assessment and Plan - Assessment and Plan (Free Text) Assessment: 63 yo male patient seen and evaluated at bedside with Dr. Byers for B/L lower extremity edema. Plan: Patient seen and evaluated at the bedside with Modesta BEDOLLA, No new labs No dressings applied to bilateral lower extremities; left open to air Podiatry will follow the patient once weekly while in house. <Mynor Byers - Last Filed: 06/20/18 17:12> Objective - Vital Signs/Intake and Output Vital Signs (last 24 hours): Temp Pulse Resp BP Pulse Ox 97 F L 71 20 124/80 96 06/20/18 07:59 06/20/18 11:25 06/20/18 07:59 06/20/18 11:25 06/20/18 07:59 Intake and Output: 06/20/18 06/20/18 06:59 18:59 Intake Total 1040 Balance 1040 - Labs Labs: 06/18/18 20:29 06/19/18 10:14 PT 12.6 SECONDS (9.4-12.5) H 06/18/18 20:29 INR 1.10 06/18/18 20:29 APTT 29.9 Seconds (25.1-36.5) 06/18/18 20:29 Attending/Attestation - Attestation I have personally seen and examined this patient.: Yes I have fully participated in the care of the patient.: Yes I have reviewed all pertinent clinical information, including history, physical exam and plan: Yes
--- NOTE | 2018-06-20 13:09 | CON ---
DATE: 06/20/2018 HISTORY OF PRESENT ILLNESS: In short, the patient is a 63-year-old male with multiple medical comorbidities such as CVA with aphasia, CHF, MRSA infection, urinary incontinence, status post suprapubic catheter placement. The patient has history of abscess and osteomyelitis, also chronic atrial fibrillation, chronic lymphedema with chronic venous stasis, COPD, hypertension, history of gastric bypass surgery, history of left knee surgery. This adjusto writer operator is very familiar with this patient from the consultation services from the previous admission, which took place here in [place] on 06/08/2018. Back then, the patient was agitated due to his aphasia. Whenever he was not able to express himself, he was feeling frustrated and the patient had episodes of restless and agitated behavior. Back then, the patient's family was trying to obtain guardianship or power of analysis reporting developer and the patient's [id number] was trying her best to obtain legal documents. Going back to this admission, the patient was transferred from [facility] for dislodged catheter. Psych consult was called for evaluation of restless behavior and agitation and the patient was seen by psychiatrist in the past. The patient was seen and examined today. No meaningful conversation is possible. The patient seems to be comfortable and not screaming. The patient was not able to provide any information due to his aphasia. Vital signs are stable. Temperature 97, pulse is 71, blood pressure 124/80, respiration 0.6, oxygen saturation is 96. Medications reviewed. The patient is on Tylenol, Xanax 0.25 mg at the nighttime and 0.25 mg twice a day, but the patient had tendency to refuse to take medication. The patient is on xanax 0.5 mg twice a day scheduled. The patient also refused this medication. The patient is on aspirin, Lipitor, vitamin D, Benadryl, Depakote 125 mg twice a day. The patient is on Colace, lactic acid, Synthroid, Lopressor, multivitamins, Protonix, MiraLax, Risperdal 0.25 mg twice a day schedule, sodium chloride, Flomax, Geodon 10 mg every 6 hours p.r.n. for agitation. Labs reviewed, most recent was from 06/18/2018. Hemoglobin and hematocrit 13.5 and 40. Coagulation is reviewed. Chemistry reviewed. BUN and creatinine are high, 53 and 2.3, but it is getting better. Urinalysis showed blood, protein and leukocyte esterase moderate high, urine bacteria large and showed urinary tract infection. MENTAL STATUS EXAMINATION: As this adjusto writer operator described above, no meaningful conversation possible. The patient has expressive aphasia. Insight and judgment seems to be limited. Impulses are unpredictable. IMPRESSION: Rule out mood disorder due to general medical condition. The patient had multiple medical issues. Please see above. The patient has expressive aphasia and agitation due to that matter. Whenever the patient is not able to express himself, he becomes very agitated. PLAN: Considering the fact that the patient was refusing p.o. medication, it could be easy convert the patient's Xanax to Ativan IV push, equivalence of Xanax to Ativan 1 to 2, Xanax 1 mg equivalent to Ativan 2 mg. Please make that conversion. In regards of Risperdal, it can be switched to liquid form. The patient also has Geodon as needed. There are no acute issues in regards of the psychiatric matter. Psychiatrist could follow up on this patient every other day. Family should be involved and informed about treatment plan offered. Should you have any questions, give me a call back. Thank you very much for letting me participate in the care of your patient. Shana Esposito MD [facility]
[2018-06-20] MEDS ORDERED: Vancomycin 25 MG/ML PO SCH (14:00)
--- NOTE | 2018-06-20 19:24 | HP ---
EMERGENCY ADMISSION HISTORY OF PRESENT ILLNESS: Mr. Damon is a very pleasant gentleman. See many previously dictated notes. He is well known to this hospital. Last week, we inserted a cystostomy tube in him. With some difficulty, but we were able to get it in. Meaning that it was a second time we have tried, but actually that time, it went in very easily and then we monitored him in the hospital. Initially, we kept a Sev[place] and a suprapubic both were draining well. We then clamped the Sevilla and made sure the suprapubic was working well and then the patient was monitored and we kept him in the hospital with a suprapubic only and it was draining very well. He then [facility] [place] [facility] and it apparently stopped working Saturday evening or Saturday. We received a phone call from the on Saturday evening. We had him come back here to the emergency room. We have done a CAT scan, it is definitely in place. Today, I irrigated in, but does not irrigate back easily. So again admitted him and monitored him. PAST MEDICAL AND SURGICAL HISTORY: Multiple medical problems and multiple CVA. He has had some significant obesity and weight was issue. He has multiple issues. At this point, he is aphasic Under the care of Dr. Brown. The has many concerns in this regard as well and we are going to direct them as well. I explained to the patient and to the to address them, but from our standpoint, we are going to monitor him and keep a close eye on the suprapubic. MEDICATIONS: See the chart. ALLERGIES: NONE OF THEM ARE GOING TO BE CHANGED AT THIS POINT. PHYSICAL EXAMINATION: GENERAL: Well-nourished male, in no apparent distress. VITAL SIGNS: Within normal limits. ABDOMEN: Overall soft. A cystostomy tube difficult to evaluate for distention secondary to body habitus, but does not feel grossly distended. There is no rebound or guarding. The cystostomy tube is sewn in location. Also, the advantage of having the CAT scan, see below, but I know the CAT scan shows the balloon in good location. The Sevilla catheter is in place. At the bedside I irrigated it, also let a little water out of the balloon. In and out to make sure that we did not deflate the balloon completely. Very carefully. It irrigated well. DIAGNOSIS: Filthy catheter. It is in place. It is not irrigating perfectly. The bladder is emptied, it is not in retention. PLAN: As follows; 1. We will monitor the patient from our standpoint. 2. I will also obtain medical consult with Dr. Brown and further plans will follow. We will see how the patient does. Jae Nance MD
--- NOTE | 2018-06-21 14:30 | CP.PCM.PCO ---
Physician Communication Note - Physician Communication Note Physician Communication Note: pt was d/c
--- NOTE | 2018-06-23 09:08 | PN ---
DATE: 06/19/2018 UROLOGY PROGRESS NOTE SUBJECTIVE: See the previous notes and see the consultation notes and see multiple operative notes. Since the patient has been admitted, the cystostomy tube has now put out about 300 to 400 mL. No other major changes. PAST MEDICAL AND SURGICAL HISTORY: No other changes. PHYSICAL EXAMINATION: No major change. DIAGNOSES: catheter that is now draining better the urine. The bladder is emptied. Repeat bladder is emptied. Also of note, the patient's BUN and creatinine is noted. Medical consultation from Urology standpoint. We are going to continue to monitor the patient and when he is medically cleared, we will kind of plan to discharge home, but we will await for further evaluation from Renal and from Dr. Brown. From Urology standpoint, maintain current care. Jae Nance MD
--- NOTE | 2018-06-23 09:21 | PN ---
DATE: 06/20/2018 SUBJECTIVE: The patient is seen in room 361, bed 1. The patient is seen lying in the bed. The patient's overnight have episode of agitation. The patient's p.o. medications and sedation changed by the psychiatrist to IV while the patient is in the hospital. The patient is seen lying in the bed with the patient's nurse. PHYSICAL EXAMINATION: VITAL SIGNS: T-max 98.7; pulse 82, 74, 76; blood pressure 138/84, 140/92; respirations 18 to 20; O2 sat mid 90% to higher 90%. HEENT: Head: Normocephalic, atraumatic. Pinkish conjunctivae. Anicteric sclerae. Dry oral mucosa. NECK: No neck rigidity. CHEST: Kyphosis. LUNGS: No rales, crackles, or wheezing. Questionable decreased breath sound at the bases. ABDOMEN: Morbidly obese. Healed surgical scar of gastric bypass surgery. Positive suprapubic cystostomy noted, connected to the urine bag which is draining urine. Abdomen examination does not reveal any palpable hepatosplenomegaly. The patient's abdomen is obese. GENITALIA: Male. RECTAL: Deferred. EXTREMITIES: Chronic skin changes of the lower extremity. No pitting edema, no calf tenderness. MUSCULOSKELETAL: Elevated body mass index. NEUROLOGIC: Gait examination could not be tested. The patient is alert, awake, and responsive. Has expressive aphasia, apraxia, and dysarthria. DIAGNOSTICS: None from 06/20/2018. Urology notes were reviewed. The patient's suprapubic cystostomy tube is now working again and draining urine. IMPRESSION: 1. Suprapubic cystostomy malfunction (resolved). 2. Acute kidney injury, probably secondary to suprapubic cystostomy malfunction. 3. Acute kidney injury with underlying chronic kidney disease stage III/IV. 4. Expressive dysarthria, apraxia, and possible oropharyngeal dysphagia. 5. History of cerebrovascular accident with right-sided hemiparesis (resolved versus resolving). 6. Anticoagulation-dependent atrial fibrillation. 7. Morbid obesity. 8. Congestive heart failure. 9. Voiding dysfunction. 10. History of hematuria. 11. Status post suprapubic cystostomy placement. 12. Gait dysfunction. 13. Deconditioning. 14. Anxiety disorder. 15. Episodic agitation and irritability. 16. Questionable behavioral disorder. 17. Hypothyroidism. 18. Hyperlipidemia. 19. History of lymphedema of the lower extremity. The patient's diagnostic data including renal ultrasound. Recommendation by Urology and Nephrology noted. Nephrology recommends to hold diuretics and angiotensin receptive chong until the patient's renal functions resume to baseline. Nephrology also recommends to continue gentle IV fluid hydration until the patient's renal functions returned to baseline. At present, the patient will continue on the IV fluid. The patient otherwise is medically stable. The patient needs urological clearance for discharge back to subacute rehab. Order has been entered that the patient's diuretics needs to be held until patient's renal function returns to baseline with gentle IV fluid hydration. The patient's renal ultrasound and CAT scan of the abdomen and pelvis results were reviewed. The patient is to be continued on the therapeutic intervention as per the NOV of 06/20/2018, which was reviewed. If the patient is cleared by Urology, the patient will be discharged to subacute rehab at [facility]. The patient's overall prognosis is guarded to poor secondary to underlying multiple comorbidities and decompensated medical status, which the patient and the patient's have been explained on multiple office visits and multiple hospitalizations in the last couple of weeks and also when the patient was hospitalized for acute cerebrovascular accident. Dictated and electronically signed, not read. Rashad Brown MD
== END 2018-06-20 13:45 | DRG 699 ==
LOC: ED 11:02 → ERH 18:52 → 3RNO 21:21 → OBSVTOIN 06-19 16:10 → 3RNO 06-19 18:22
PROVIDERS: ADMIT Urology; ATTEND Urology
PROC: 3C1ZX8Z Irrigation of Indwelling Device using Irrigating Substance, External Approach (ICD-10-PCS; principal; 2018-06-20)
DX: T83.090A Other mechanical complication of cystostomy catheter, initial encounter (principal); N17.9 Acute kidney failure, unspecified; I69.351 Hemiplegia and hemiparesis following cerebral infarction affecting right dominant side; Z68.42 Body mass index [BMI] 45.0-49.9, adult; N39.0 Urinary tract infection, site not specified; I13.0 Hypertensive heart and chronic kidney disease with heart failure and stage 1 through stage 4 chronic kidney disease, or unspecified chronic kidney disease; I69.320 Aphasia following cerebral infarction; R32 Unspecified urinary incontinence; F03.90 Unspecified dementia, unspecified severity, without behavioral disturbance, psychotic disturbance, mood disturbance, and anxiety; N18.3 Chronic kidney disease, stage 3 (moderate); I27.20 Pulmonary hypertension, unspecified; N31.9 Neuromuscular dysfunction of bladder, unspecified; I48.2 Chronic atrial fibrillation; Z79.01 Long term (current) use of anticoagulants; E03.9 Hypothyroidism, unspecified; E66.01 Morbid (severe) obesity due to excess calories; E78.5 Hyperlipidemia, unspecified; I50.9 Heart failure, unspecified; I87.2 Venous insufficiency (chronic) (peripheral); I89.0 Lymphedema, not elsewhere classified; R80.9 Proteinuria, unspecified; R31.9 Hematuria, unspecified; J44.9 Chronic obstructive pulmonary disease, unspecified; E79.0 Hyperuricemia without signs of inflammatory arthritis and tophaceous disease; R47.1 Dysarthria and anarthria; K21.9 Gastro-esophageal reflux disease without esophagitis; N28.1 Cyst of kidney, acquired; F41.9 Anxiety disorder, unspecified; K59.00 Constipation, unspecified; K80.20 Calculus of gallbladder without cholecystitis without obstruction; Z79.82 Long term (current) use of aspirin; Z98.84 Bariatric surgery status; Z87.891 Personal history of nicotine dependence

== ENCOUNTER 2018-07-01 16:14 | Inpatient (IN) | payer MEDICARE ==
[2018-07-01 16:15] VITALS: PULSE 58; BMI 46.7
--- NOTE | 2018-07-01 17:10 | ED PDOC ---
Arrival/HPI - General Chief Complaint: Psychiatric Evaluation Time Seen by Provider: 07/01/18 16:28 Historian: Patient, Fdc - History of Present Illness Narrative History of Present Illness (Text): 07/01/18 17:06 63yr old male with hx of CVA, suprapubic catheter on abx via Picc line presents today sent in from senior care for aggressive and combative behavior. pt denies trauma/injury. pt denies pain. no vomiting. Past Medical History - Provider Review Nursing Documentation Reviewed: Yes - Travel History Have you recently traveled outside [place] w/in the past 3 mons?: No - Past History Past History: No Previous - Infectious Disease Hx of Infectious Diseases: None - Tetanus Immunization Tetanus Immunization: Unknown - Cardiac Hx Cardiac Disorders: Yes Hx Hypertension: Yes - Pulmonary Hx Chronic Obstructive Pulmonary Disease (COPD): Yes - Neurological HX Cerebrovascular Accident: Yes - HEENT Other/Comment: Aphasia - Renal Hx Renal Disorder: Yes - Endocrine/Metabolic Hx Endocrine Disorders: Yes Hx Hypothyroidism: Yes - Hematological/Oncological Hx Blood Transfusions: No - Integumentary Hx Dermatological Disorder: Yes (CELLULITIS TO LOWER EXTREMITY) - Musculoskeletal/Rheumatological Hx Arthritis: Yes Hx Falls: Yes Hx Osteoarthritis: Yes - Gastrointestinal Hx Gastroesophageal Reflux: Yes - Genitourinary/Gynecological Hx Genitourinary Disorders: Yes Other/Comment: HX: URINARY RETENTION ->CHACON CATH. - Psychiatric Hx Depression: Yes Hx Substance Use: Yes - Surgical History Other/Comment: suprapubic cath - Anesthesia Hx Anesthesia Reactions: No Hx Malignant Hyperthermia: No - Suicidal Assessment Feels Threatened In Home Enviroment: No Family/Social History - Physician Review Nursing Documentation Reviewed: Yes Family/Social History: Unknown Family HX Smoking Status: Never Smoked Hx Alcohol Use: Yes Hx Substance Use: Yes Hx Substance Use Treatment: No Allergies/Home Meds Allergies/Adverse Reactions: Allergies No Known Allergies Allergy (Verified 06/18/18 11:06) Home Medications: Home Meds Medication Instructions Recorded Confirmed Linaclotide [Linzess] 1 cap PO DAILY 02/12/18 07/01/18 Atorvastatin [Lipitor] 40 mg PO HS 04/16/18 07/01/18 Albuterol/Ipratropium [Duoneb 3 1 vial IH Q2H PRN 06/18/18 07/01/18 mg/0.5 mg (3 ml) UD] DiphenhydrAMINE [Benadryl] 1 tab PO Q8H PRN 06/18/18 07/01/18 Divalproex [Depakote Sprinkles] 125 mg PO BID 06/18/18 07/01/18 Polyethylene Glycol 3350 [Miralax] 17 g PO BID 06/18/18 07/01/18 Review of Systems - Review of Systems Constitutional: absent: Fevers Respiratory: absent: SOB, Cough Cardiovascular: absent: Chest Pain Gastrointestinal: Diarrhea. absent: Abdominal Pain, Vomiting Musculoskeletal: absent: Arthralgias, Back Pain Neurological: absent: Headache Physical Exam Vital Signs Reviewed: Yes Temperature: Afebrile Blood Pressure: Normal Pulse: Regular Respiratory Rate: Normal Appearance: Positive for: Well-Appearing, Non-Toxic, Comfortable Pain Distress: None Mental Status: Positive for: Alert and Oriented X 3 - Systems Exam Head: Present: Atraumatic Neck: Present: Normal Range of Motion Respiratory/Chest: Present: Clear to Auscultation Cardiovascular: Present: Regular Rate and Rhythm Abdomen: Present: Other (suprapubic catheter in place; no surrounding erythema). No: Tenderness, Distention, Rebound, Guarding Upper Extremity: Present: Normal Inspection, Other (pICC line left arm) Lower Extremity: Present: Other (abrasions to right lower leg without erythema. ) Skin: Present: Warm, Dry Psychiatric: Present: Alert Medical Decision Making ED Course and Treatment: 07/01/18 17:08 63yr old male sent in from senior care with agitation and combativeness. pt is alert; communication is limited to do expressive aphasia. Patient is nontoxic well-appearing in no distress vital signs are stable. CBC CMP Tylenol WNL Salicylate WNL Alcohol level WNL Urine drug screen wnl UA; wnl cxr: FINDINGS: LUNGS: The lungs are well inflated and clear. PLEURA: No pleural effusions or pneumothorax. CARDIOVASCULAR: Persistent severe cardiomegaly. No aortic atherosclerotic calcification present. OSSEOUS STRUCTURES: Within normal limits for the patient's age. VISUALIZED UPPER ABDOMEN: Normal. OTHER FINDINGS: None. IMPRESSION: No acute findings. Persistent severe cardiomegaly. ekg: atrial fibrillation at 85b/m no st elevations, normal axis. pt with multiple episodes of diarrhea in er; pt was found to have + cdiff antigen with - toxin on 06/19. will resend cdiff cultures. UA; + leukocytes; pt with suprapubic catheter in place currently on antibiotics. urine cultures pending; culture on 06/19 showed yeast. Patient was seen and evaluated by PES screener: sebas; pt is not safe to return to [facility]; unable to sign into psych floor; No POA. Head CT; FINDINGS: BRAIN No acute intraparenchymal hemorrhage. No mass lesion. No CT evidence for acute territorial infarct. Old right frontal infarct. Periventricular white matter hypodensities consistent with microangiopathic disease. Generalized cerebral atrophy.No midline shift or extra-axial collections. VENTRICLES: No hydrocephalus. ORBITS: The orbits are unremarkable. SINUSES AND MASTOIDS: The paranasal sinuses and mastoid air cells are clear. BONES: No fracture. SOFT TISSUES: Unremarkable. IMPRESSION: No acute intracranial abnormality. Old right frontal infarct. Generalized cerebral atrophy. Evidence of microangiopathic disease. ct abd/pelvis; The liver is of uniform attenuation without mass or defect. There is no intra or extrahepatic biliary ductal dilatation. The spleen is normal. There is 8 mm calcified gallstone present. The gallbladder is otherwise unremarkable. The pancreas is of normal contour and attenuation characteristics. There is no evidence of adrenal mass. The kidneys are normal in size, shape and configuration. No renal or ureteral calculi are identified. There is no hydroureter or hydronephrosis. 2 cysts are present in the lower pole of the right kidney one is exophytic measuring up to 5 cm in length. The patient is status post gastric bypass. There is no evidence for appendicitis. There is no bowel wall thickening. No evidence for small or large bowel obstruction. There is no evidence of abdominal ascites or lymphadenopathy. Suprapubic catheter is in place. The urinary bladder is under distended. There is no pelvic ascites or lymphadenopathy. The prostate gland is minimally enlarged and contains small calcifications. Images of the lung bases show no evidence of pleural or parenchymal mass. There are no pleural effusions. The bony structures are free of lytic or blastic lesions. IMPRESSION: 1. No acute abdominal or pelvic pathology. 2. Gallstone. 3. 2 cysts are present in the lower pole of the right kidney. 3. The patient is status post gastric bypass. 4. Suprapubic catheter is in place. The urinary bladder is under distended. 5. The prostate gland is minimally enlarged and contains small calcifications case discussed with dr. hartley in depth; accepts admission. impression; AMS, diarrhea, aggressive behavior admit observational status - RAD Interpretation Radiology Orders: 07/01/18 16:29 CHEST PORTABLE [RAD] Stat Disposition/Present on Arrival - Present on Arrival Any Indicators Present on Arrival: Yes History of DVT/PE: No History of Uncontrolled Diabetes: Yes Urinary Catheter: Yes History of Decub. Ulcer: No History Surgical Site Infection Following: None - Disposition Have Diagnosis and Disposition been Completed?: Yes Diagnosis: Altered mental status, Diarrhea, Aggressive behavior Disposition: HOSPITALIZED Disposition Time: 18:30 Patient Plan: Observation Patient Problems: Current Active Problems Problem Status Onset Aggressive behavior Acute Altered mental status Acute Diarrhea Acute Condition: FAIR
[2018-07-01 17:29] LABS: URINE BILIRUBIN NEGATIVE (NEGATIVE); URINE BLOOD LARGE (NEGATIVE); URINE GLUCOSE (UA) NEGATIVE (NEGATIVE); URINE LEUKOCYTE ESTERASE LARGE Leu/uL (NEGATIVE); URINE PROTEIN 30 mg/dL (<30 mg/dL); URINE UROBILINOGEN 0.2 E.U./dL (<1 E.U./dL)
[2018-07-01 17:30] LABS: URINE APPEARANCE SLIGHT-CLOUDY (CLEAR); URINE COLOR YELLOW (YELLOW)
[2018-07-01 17:31] LABS: BASO # 0.01 K/mm3 (0.0-2.0); BASO % 0.1 % (0.0-3.0); EOS # 0.2 (0.0-0.7); EOS % 2.4 % (1.5-5.0); GRAN # 8.05 (1.4-6.5); GRAN % 81.3 % (50.0-68.0); HEMOGLOBIN 12.9 g/dL (14.0-18.0); LYMPH # 1.1 (1.2-3.4); LYMPH % 10.8 % (22.0-35.0); MEAN CELL VOLUME 91.8 fl (80.0-105.0); MEAN CORPUSCULAR HEMOGLOBIN 31.2 pg (25.0-35.0); MEAN PLATELET VOLUME 9.6 fl (7.0-11.0); MONO # 0.5 (0.1-0.6); MONO % 5.4 % (1.0-6.0); RBC 4.13 10^6/uL (3.5-6.1); WHITE BLOOD COUNT 9.9 10^3/ul (4.5-11.0)
[2018-07-01 17:44] LABS: URINE BACTERIA TRACE (NEG)
[2018-07-01 17:45] LABS: ACETAMINOPHEN < 10.0 ug/ml (10.0-20.0); SALICYLATE < 1 mg/dL (2.0-20.0)
[2018-07-01 17:48] LABS: ALBUMIN 3.3 g/dL (3.0-4.8); CALCIUM 8.3 mg/dL (8.4-10.5)
[2018-07-01 18:18] LABS: BARBITURATES, UR NEGATIVE (NEGATIVE); BENZODIAZEPINES, UR POSITIVE (NEGATIVE); OPIATES, UR NEGATIVE (NEGATIVE); PHENCYCLIDINE, UR NEGATIVE (NEGATIVE)
[2018-07-01] MEDS ORDERED: Potassium Chloride 40 mEq/30 ml LIQ UD PO STA (18:52)
[2018-07-01] MEDS ORDERED: Albuterol-Ipratrop 3 mg / 0.5 (3 ml) UD IH PRN (19:21)
[2018-07-01 19:25] LABS: INR 1.33; PARTIAL THROMBOPLASTIN TIME 28.3 Seconds (25.1-36.5); PROTHROMBIN TIME 15.2 SECONDS (9.4-12.5)
[2018-07-01] MEDS ORDERED: Lactated Ringer's 1,000 ML IV SCH (19:30)
[2018-07-01] MEDS: Vancomycin 25 MG/ML PO SCH (21:04)
[2018-07-01] MEDS: Divalproex 125 mg EC Sprinkle Cap PO SCH (21:24)
--- NOTE | 2018-07-01 22:22 | CP.PCM.HP ---
<Patricio Ortiz - Last Filed: 07/02/18 00:22> History of Present Illness - History of Present Illness History of Present Illness: Patricio Ortiz, PGY1 H&P for Dr. Brown Service This is a 63 year old male with PMH of CVA with residual apashia and right sided weakness, pulmonary HTN, systolic CHF with EF of 25%, COPD, HTN, chronic lymphadema, atrial fibrillation on eliquis, morbid obesity, neurogenic bladder, and s/p suprapubic catheter on antibiotic therapy via PICC line presenting from [facility] for agitation and combative behavior. Patient has been seen frequently in hospital for complications from neurogenic bladder and was admitted to hospital earlier this month for failed suprapubic catheter. On examination, patient is agitated and refused to answer any questions. 12 point ROS limited due to clinical status. Patient history obtained from chart review. In ED, patient given 0.25mg xanax. Urine drug screen WNL. CXR showed no acute findings, persistent severe cardiomegaly. EKG showed afib at 85bmp with no ST changes. Patient had multiple episodes of watery diarrhea in ED. Head CT showed no acute findings, CTAP showed no acute findings with under distended urinary bladder. PMHx: as above SH: history of alcohol and substance abuse PSHx: Lap band, Left shoulder surgery Allergies: NKDA Social Hx: Former alcohol and substance abuse. Denies tobacco use Family Hx: Could not obtain from patient as he is non-verbal Medications: Reviewed, as per MAR Present on Admission - Present on Admission Any Indicators Present on Admission: Yes Urinary Catheter: Yes Past Patient History - Infectious Disease Hx of Infectious Diseases: None - Tetanus Immunizations Tetanus Immunization: Unknown - Past Medical History & Family History Past Medical History?: Yes - Past Social History Smoking Status: Never Smoked - CARDIAC Hx Cardiac Disorders: Yes Hx Hypertension: Yes - PULMONARY Hx Chronic Obstructive Pulmonary Disease (COPD): Yes - NEUROLOGICAL HX Cerebrovascular Accident: Yes - HEENT Other/Comment: Aphasia - RENAL Hx Chronic Kidney Disease: Yes - ENDOCRINE/METABOLIC Hx Endocrine Disorders: Yes Hx Hypothyroidism: Yes - HEMATOLOGICAL/ONCOLOGICAL Hx Blood Transfusions: No - INTEGUMENTARY Hx Dermatological Problems: Yes (CELLULITIS TO LOWER EXTREMITY) - MUSCULOSKELETAL/RHEUMATOLOGICAL Hx Arthritis: Yes Hx Falls: Yes Hx Osteoarthritis: Yes - GASTROINTESTINAL Hx Gastroesophageal Reflux: Yes - GENITOURINARY/GYNECOLOGICAL Hx Genitourinary Disorders: Yes Other/Comment: HX: URINARY RETENTION ->CHACON CATH. - PSYCHIATRIC Hx Depression: Yes Hx Substance Use: Yes - SURGICAL HISTORY Other/Comment: suprapubic cath - ANESTHESIA Hx Anesthesia Reactions: No Hx Malignant Hyperthermia: No Meds Allergies/Adverse Reactions: Allergies Allergy/AdvReac Type Severity Reaction Status Date / Time No Known Allergies Allergy Verified 06/18/18 11:06 Physical Exam - Constitutional Appears: Combative, Agitated Additional comments: Patient stated he did not want physical exam performed - Head Exam Head Exam: ATRAUMATIC, NORMAL INSPECTION - Eye Exam Eye Exam: EOMI Pupil Exam: PERRL - ENT Exam ENT Exam: Mucous Membranes Moist - Additional Findings Additional findings: Patient stated he did not want physical exam performed Results - Vital Signs Recent Vital Signs: Last Vital Signs Temp 98.2 F 07/01/18 18:45 Pulse 86 07/01/18 18:45 Resp 18 07/01/18 18:45 BP 139/81 07/01/18 18:45 Pulse Ox 98 07/01/18 18:45 - Labs Result Diagrams: 07/01/18 17:20 07/01/18 17:20 Labs: Laboratory Results - last 24 hr 07/01/18 07/01/18 07/01/18 17:20 17:20 17:20 WBC 9.9 RBC 4.13 Hgb 12.9 L Hct 37.9 L MCV 91.8 MCH 31.2 MCHC 34.0 RDW 14.0 Plt Count 144 MPV 9.6 Gran % 81.3 H Lymph % (Auto) 10.8 L [place] % (Auto) 5.4 Eos % (Auto) 2.4 Baso % (Auto) 0.1 Gran # 8.05 H Lymph # (Auto) 1.1 L [place] # (Auto) 0.5 Eos # (Auto) 0.2 Baso # (Auto) 0.01 PT INR APTT Sodium 142 Potassium 3.2 L Chloride 106 Carbon Dioxide 27 Anion Gap 12 BUN 26 H Creatinine 2.0 H Est GFR ( Amer) 41 Est GFR (Non-Af Amer) 34 Random Glucose 107 Calcium 8.3 L Total Bilirubin 1.5 H AST 21 ALT 22 Alkaline Phosphatase 83 Total Protein 6.6 Albumin 3.3 Globulin 3.3 Albumin/Globulin Ratio 1.0 L Urine Color Yellow Urine Appearance Slight-cloudy Urine pH 6.0 Ur Specific [place] 1.020 Urine Protein 30 H Urine Glucose (UA) Negative Urine Ketones Negative Urine Blood Large H Urine Nitrate Negative Urine Bilirubin Negative Urine Urobilinogen 0.2 Ur Leukocyte Esterase Large H Urine RBC 2 - 5 Urine WBC 10 - 15 Ur Epithelial Cells None Urine Bacteria Trace Salicylates Urine Opiates Screen Urine Methadone Screen Acetaminophen Ur Barbiturates Screen Ur Phencyclidine Scrn Ur Amphetamines Screen U Benzodiazepines Scrn U Oth Cocaine Metabols U Cannabinoids Screen Alcohol, Quantitative 07/01/18 07/01/18 07/01/18 17:20 17:20 17:20 WBC RBC Hgb Hct MCV MCH MCHC RDW Plt Count MPV Gran % Lymph % (Auto) [place] % (Auto) Eos % (Auto) Baso % (Auto) Gran # Lymph # (Auto) [place] # (Auto) Eos # (Auto) Baso # (Auto) PT INR APTT Sodium Potassium Chloride Carbon Dioxide Anion Gap BUN Creatinine Est GFR ( Amer) Est GFR (Non-Af Amer) Random Glucose Calcium Total Bilirubin AST ALT Alkaline Phosphatase Total Protein Albumin Globulin Albumin/Globulin Ratio Urine Color Urine Appearance Urine pH Ur Specific [place] Urine Protein Urine Glucose (UA) Urine Ketones Urine Blood Urine Nitrate Urine Bilirubin Urine Urobilinogen Ur Leukocyte Esterase Urine RBC Urine WBC Ur Epithelial Cells Urine Bacteria Salicylates < 1 L Urine Opiates Screen Negative Urine Methadone Screen Negative Acetaminophen < 10.0 L Ur Barbiturates Screen Negative Ur Phencyclidine Scrn Negative Ur Amphetamines Screen Negative U Benzodiazepines Scrn Positive H U Oth Cocaine Metabols Negative U Cannabinoids Screen Negative Alcohol, Quantitative < 10 07/01/18 18:50 WBC RBC Hgb Hct MCV MCH MCHC RDW Plt Count MPV Gran % Lymph % (Auto) [place] % (Auto) Eos % (Auto) Baso % (Auto) Gran # Lymph # (Auto) [place] # (Auto) Eos # (Auto) Baso # (Auto) PT 15.2 H INR 1.33 APTT 28.3 Sodium Potassium Chloride Carbon Dioxide Anion Gap BUN Creatinine Est GFR ( Amer) Est GFR (Non-Af Amer) Random Glucose Calcium Total Bilirubin AST ALT Alkaline Phosphatase Total Protein Albumin Globulin Albumin/Globulin Ratio Urine Color Urine Appearance Urine pH Ur Specific [place] Urine Protein Urine Glucose (UA) Urine Ketones Urine Blood Urine Nitrate Urine Bilirubin Urine Urobilinogen Ur Leukocyte Esterase Urine RBC Urine WBC Ur Epithelial Cells Urine Bacteria Salicylates Urine Opiates Screen Urine Methadone Screen Acetaminophen Ur Barbiturates Screen Ur Phencyclidine Scrn Ur Amphetamines Screen U Benzodiazepines Scrn U Oth Cocaine Metabols U Cannabinoids Screen Alcohol, Quantitative Assessment & Plan - Assessment and Plan (Free Text) Assessment: This is a 63 year old male with PMH of CVA with residual apashia and right sided weakness, pulmonary HTN, systolic CHF with EF of 25%, COPD, HTN, chronic lymphadema, atrial fibrillation on eliquis, morbid obesity, neurogenic bladder, and s/p suprapubic catheter on antibiotic therapy via PICC line presenting from [facility] for agitation and combative behavior. Plan: Concern for C diff -continue vancomycin PO -c diff toxin, antigen pending -stool electrolyte, culture pending -GI on consult, Dr. Somers -ID on consult, Dr. Padilla -CTAP pending final read Behavorial disturbance -Drug screen positive for benzos, otherwise unremarkable -denied questioning, physical exam -Psych on consult, Dr. Esposito -CT head pending final read Hypokalemia -repleted -follow up AM labs Hx of CVA -residual apashia and right sided weakness -Neuro on consult, Dr. Barker -mayra therapy screening -swallow eval pending -PT eval Hx Neurogenic bladder -suprapubic cather present -U/A positive for blood, leukocte esterase -Nephrology on consult, Jon -Urology on consult, Spenser Morales Hx Chronic lymphadema -Podiatry on consult, Dr. Sebastian Hx of atrial fibrillaion -continue eliquis -currently rate controlled Hx of hypothyroidism -continue synthroid -T4, TSH pending PPX with pepcid and SCD Patient discussed with attending, Dr. Brown <Rashad Brown U - Last Filed: 07/07/18 20:18> Results - Vital Signs Recent Vital Signs: Last Vital Signs Temp 97.9 F 07/07/18 14:00 Pulse 80 07/07/18 17:14 Resp 20 07/07/18 14:00 BP 140/80 07/07/18 17:14 Pulse Ox 94 L 07/07/18 14:00 - Labs Result Diagrams: 07/06/18 07:15 07/06/18 07:15 Labs: Laboratory Results - last 24 hr 07/07/18 13:30 Valproic Acid 32 L Attending/Attestation - Attestation I have personally seen and examined this patient.: Yes I have fully participated in the care of the patient.: Yes I have reviewed all pertinent clinical information: Yes Notes (Text): Please see/read my dictated notes.
[2018-07-01 22:27] LABS: FREE T4 1.34 ng/dL (0.78-2.19); T4 5.5 ug/dL (5.5-11.0)
[2018-07-02] MEDS ORDERED: Pantoprazole 40 mg EC Tab PO SCH ×2 (06:00→07:30)
[2018-07-02 07:33] LABS: BASO # 0.01 K/mm3 (0.0-2.0); BASO % 0.1 % (0.0-3.0); EOS # 0.2 (0.0-0.7); EOS % 2.9 % (1.5-5.0); GRAN # 6.06 (1.4-6.5); GRAN % 72.1 % (50.0-68.0); HEMOGLOBIN 12.5 g/dL (14.0-18.0); LYMPH # 1.6 (1.2-3.4); LYMPH % 19.2 % (22.0-35.0); MEAN CELL VOLUME 92.7 fl (80.0-105.0); MEAN CORPUSCULAR HEMOGLOBIN 30.6 pg (25.0-35.0); MEAN PLATELET VOLUME 10.1 fl (7.0-11.0); MONO # 0.5 (0.1-0.6); MONO % 5.7 % (1.0-6.0); RBC 4.09 10^6/uL (3.5-6.1); RED CELL DISTRIBUTION WIDTH 14.1 % (11.5-14.5); WHITE BLOOD COUNT 8.4 10^3/ul (4.5-11.0)
[2018-07-02 07:47] LABS: ALBUMIN 3.2 g/dL (3.0-4.8); BILIRUBIN,DIRECT 0.2 mg/dL (0.0-0.4); CALCIUM 8.3 mg/dL (8.4-10.5)
[2018-07-02 07:54] LABS: FREE T4 1.18 ng/dL (0.78-2.19)
--- NOTE | 2018-07-02 07:59 | CARD ---
APPROVED REPORT Date of service: 07/01/2018 EKG Measurement Heart [id number] <Conclusion> Atrial fibrillation Low voltage limb leads ASMI, age unknown LVH STTW changes c/w ischemia Prolonged QT
[2018-07-02] MEDS ORDERED: Vancomycin 2 GM in Sodium Chloride 0.9% 500 ML IVPB ONE (08:05)
[2018-07-02] MEDS ORDERED: Potassium Chloride 40 MEQ in Lactated Ringer's 1,000 ML IV SCH (08:08)
[2018-07-02] MEDS ORDERED: Magnesium Sulfate 2 gm/50 ml 2 GM/50 ML BAG IVPB SCH (08:30)
--- NOTE | 2018-07-02 08:39 | CT ---
Date of service: 07/01/2018 PROCEDURE: CT Abdomen and Pelvis without intravenous contrast HISTORY: ABDOMINAL PAIN COMPARISON: 06/18/2018 TECHNIQUE: Technique. Contrast dose: Radiation dose: Total exam DLP = 1144.19 mGy-cm. This CT exam was performed using one or more of the following dose reduction techniques: Automated exposure control, adjustment of the mA and/or kV according to patient size, and/or use of iterative reconstruction technique. FINDINGS: LOWER THORAX: Unremarkable. LIVER: Unremarkable. No gross lesion or ductal dilatation. GALLBLADDER AND BILE DUCTS: Cholelithiasis. PANCREAS: Unremarkable. No gross lesion or ductal dilatation. SPLEEN: Unremarkable. ADRENALS: Unremarkable. No mass. KIDNEYS AND URETERS: Right renal cysts. No hydronephrosis. No solid mass. VASCULATURE: Unremarkable. No aortic aneurysm. No aortic atherosclerotic calcification or mural plaque present. BOWEL: Gastric balloon pump. No obstruction. No gross mural thickening. APPENDIX: Unremarkable. Normal appendix. PERITONEUM: Unremarkable. No free fluid. No free air. LYMPH NODES: Unremarkable. No enlarged lymph nodes. BLADDER: Suprapubic catheter. REPRODUCTIVE: Unremarkable. BONES: No acute fracture. OTHER FINDINGS: Anterior abdominal wall muscle muscle atrophy. IMPRESSION: Cholelithiasis. No significant change. No acute pathology.
[2018-07-02] MEDS: Cholecalciferol 1,000 INTLU TAB PO SCH ×2 (09:49→13:07)
[2018-07-02] MEDS: Levothyroxine 25 MCG TAB PO SCH ×2 (09:49→13:07)
[2018-07-02] MEDS: Potassium Chloride 20 mEq ER Tab PO SCH ×3 (09:49→19:58)
[2018-07-02] MEDS ORDERED: Potassium Chloride 20 mEq ER Tab PO SCH (10:00)
--- NOTE | 2018-07-02 11:39 | CP.PCM.PN ---
Subjective - Date & Time of Evaluation Date of Evaluation: 07/02/18 Time of Evaluation: 11:38 - Subjective Subjective: Podiatry consult note for Dr. Sebastian/ Dr Byers, This is a 63 year old male with PMH of CVA with residual apashia and right sided weakness, pulmonary HTN, systolic CHF with EF of 25%, COPD, HTN, chronic lymphadema, atrial fibrillation on eliquis, morbid obesity, neurogenic bladder, and s/p suprapubic catheter seen at bedside for chronic lymphedema, and stasis ulcers in his legs. Patient is sleeping and nonverbal. Denies f/n/v/sob. PMHx: as above SH: history of alcohol and substance abuse PSHx: Lap band, Left shoulder surgery Allergies: NKDA Social Hx: Former alcohol and substance abuse. Denies tobacco use Family Hx: Could not obtain from patient as he is non-verbal Medications: Reviewed, as per MAR Poditry consult note for attending Dr. Byers: Objective - Vital Signs/Intake and Output Vital Signs (last 24 hours): Temp Pulse Resp BP Pulse Ox 98.2 F 84 20 131/80 99 07/01/18 18:45 07/01/18 22:00 07/02/18 03:27 07/01/18 20:00 07/01/18 23:07 Intake and Output: 07/02/18 07/02/18 06:59 18:59 Intake Total 560 Balance 560 - Medications Medications: Current Medications Acetaminophen (Tylenol 325mg Tab) 650 mg PO Q6 PRN PRN Reason: TEMP>=99.5F Acetaminophen (Tylenol 650 Mg Supp) 650 mg RC Q6H PRN PRN Reason: TEMP>=99.5F Albuterol/Ipratropium (Duoneb 3 Mg/0.5 Mg (3 Ml) Ud) 3 ml IH Q2H PRN PRN Reason: Shortness of Breath Alprazolam (Xanax) 0.25 mg PO HS SACHIN; Protocol Stop: 07/08/18 22:01 Last Admin: 07/02/18 00:29 Dose: 0.25 mg Apixaban (Eliquis) 2.5 mg PO BID SACHIN; Protocol Last Admin: 07/01/18 21:30 Dose: 2.5 mg Aspirin (Aspirin Chewable) 81 mg PO DAILY [facility] Atorvastatin Calcium (Lipitor) 40 mg PO HS [facility] Last Admin: 07/02/18 00:30 Dose: 40 mg Cholecalciferol (Vitamin D) 2,000 intlu PO DAILY [facility] [place] Diphenhydramine HCl (Benadryl) 25 mg PO Q8H PRN PRN Reason: Itching / Pruritus Divalproex Sodium (Depakote Sprinkles) 125 mg PO BID [facility]; Protocol Last Admin: 07/01/18 21:24 Dose: 125 mg Famotidine (Pepcid) 20 mg PO BID [facility] Meropenem (Merrem Iv 1 Gm Premix) 1 gm in 50 mls @ 100 mls/hr IVPB Q12 SACHIN; Protocol Stop: 07/11/18 10:01 Potassium Chloride 40 meq/ (Lactated Ringer's) 1,020 mls @ 70 mls/hr IV .[id number] [facility] [place] Magnesium Sulfate (Magnesium Sulfate 2 Gm/50 Ml Water) 2 gm in 50 mls @ 50 mls/hr IVPB Q3H SACHIN Stop: 07/02/18 12:29 Potassium Chloride (Potassium Chloride 20 Meq/100 Ml) 20 meq in 100 mls @ 50 mls/hr IVPB Q2H SACHIN Stop: 07/02/18 12:29 Levothyroxine Sodium (Synthroid) 25 mcg PO ACB [facility] [place] Metoprolol Tartrate (Lopressor) 50 mg PO BID [facility] [place] Ondansetron HCl (Zofran Inj) 4 mg IVP Q4H PRN PRN Reason: Nausea/Vomiting Potassium Chloride (K-Dur 20 Meq Er Tab) 20 meq PO BID [facility] [place] Vancomycin HCl (Vancocin 25 Mg/Ml (Oral Use)) 125 mg PO QID [facility]; Protocol Last Admin: 07/01/18 21:04 Dose: 125 mg - Labs Labs: 07/02/18 07:00 07/02/18 07:00 PT 15.2 SECONDS (9.4-12.5) H 07/01/18 18:50 INR 1.33 07/01/18 18:50 APTT 28.3 Seconds (25.1-36.5) 07/01/18 18:50 - Constitutional Appears: Well, Non-toxic, No Acute Distress - Extremities Exam Additional comments: Vasc: DP/PT pulses 2/4 b/l. Cap refill > 3 seconds to all digits. Skin temperature warm to warm from proximal to distal. +2 edema noted to bilateral lower extremity Neuro: Unable to assess Ortho: Patient able to move digits Derm: Diffuse dermal change, hyperpigmentation and lichenification noted to bilateral extremities, no drainage, no open lesions, multiple scab like lesions noted b/l legs, no erythema, no purulence, no clinical signs of infection, skin is well hydrated - Neurological Exam Neurological Exam: Alert Assessment and Plan - Assessment and Plan (Free Text) Assessment: 63 y/o M patient seen and evaluated at the bed side for bilateral lower extremity edema Plan: Patient seen and evaluated at the bedside with Dr. Sebastian Chart, labs and vitals reviewed; Afebrile, absent leukocytosis Bilateral lower extremities cleansed with saline and right LE drssed with xeroform, DSD Multipodus boots ordered for bilateral lower extremities and to be worn at all times to prevent heel breakdown Podiatry will follow the patient once weekly while in house.
--- NOTE | 2018-07-02 11:58 | CP.PCM.CON ---
History of Present Illness - History of Present Illness History of Present Illness: 63 yo M w/ pmh of htn, s/p CVA w/ residual aphasia, severe pulm htn, htn, afib on eliquis, neurogenic bladder s/p suprapubic catheter, with recurrent UTI, and CKD IIIA, [place] due to reported agitation and combative behavior, nephrology being consulted for TROY; Patient able to give yes/no answers but gets agitated at times during encounter; currently denies being in any pain; no shortness of breath; denies any nausea/vo miting or diarrhea; per [place] records, patient was being treated for UTI and was started on both ampicillin and cefepime on 06/26; diuretics were recently adjusted with lasix being decreased from 80 mg bid to 40 mg bid; also, losartan was stopped; patient had been having issues with hypokalemia and was getting replenished prn; Patient was admitted earlier this month with reported malfunctioning suprapubic catheter which resolved spontaneously; had TROY that improved with holding diuretics and ARB; suprapubic catheter was placed on admission last month by urology with much difficulty and with patient treated for MDR UTI at that time; Review of Systems - Review of Systems Systems not reviewed;Unavailable: Uncooperative Past Patient History - Infectious Disease Hx of Infectious Diseases: None - Tetanus Immunizations Tetanus Immunization: Unknown - Past Medical History & Family History Past Medical History?: Yes - Past Social History Smoking Status: Unknown If Ever Smoked - CARDIAC Hx Cardiac Disorders: Yes Hx Hypertension: Yes - PULMONARY Hx Chronic Obstructive Pulmonary Disease (COPD): Yes - NEUROLOGICAL HX Cerebrovascular Accident: Yes - HEENT Other/Comment: Aphasia - RENAL Hx Chronic Kidney Disease: Yes - ENDOCRINE/METABOLIC Hx Endocrine Disorders: Yes Hx Hypothyroidism: Yes - HEMATOLOGICAL/ONCOLOGICAL Hx Blood Transfusions: No - INTEGUMENTARY Hx Dermatological Problems: Yes (CELLULITIS TO LOWER EXTREMITY) - MUSCULOSKELETAL/RHEUMATOLOGICAL Hx Arthritis: Yes Hx Falls: No Hx Osteoarthritis: Yes - GASTROINTESTINAL Hx Gastroesophageal Reflux: Yes - GENITOURINARY/GYNECOLOGICAL Hx Genitourinary Disorders: Yes Other/Comment: HX: URINARY RETENTION ->CHACON CATH. - PSYCHIATRIC Hx Depression: Yes Hx Substance Use: No - SURGICAL HISTORY Other/Comment: suprapubic cath - ANESTHESIA Hx Anesthesia Reactions: No Hx Malignant Hyperthermia: No Meds Allergies/Adverse Reactions: Allergies Allergy/AdvReac Type Severity Reaction Status Date / Time No Known Allergies Allergy Verified 06/18/18 11:06 - Medications Medications: Current Medications Acetaminophen (Tylenol 325mg Tab) 650 mg PO Q6 PRN PRN Reason: TEMP>=99.5F Acetaminophen (Tylenol 650 Mg Supp) 650 mg RC Q6H PRN PRN Reason: TEMP>=99.5F Albuterol/Ipratropium (Duoneb 3 Mg/0.5 Mg (3 Ml) Ud) 3 ml IH Q2H PRN PRN Reason: Shortness of Breath Alprazolam (Xanax) 0.25 mg PO HS [facility]; Protocol Stop: 07/08/18 22:01 Last Admin: 07/02/18 00:29 Dose: 0.25 mg Apixaban (Eliquis) 2.5 mg PO BID [facility]; Protocol Last Admin: 07/01/18 21:30 Dose: 2.5 mg Aspirin (Aspirin Chewable) 81 mg PO DAILY [facility] Atorvastatin Calcium (Lipitor) 40 mg PO HS [facility] Last Admin: 07/02/18 00:30 Dose: 40 mg Cholecalciferol (Vitamin D) 2,000 intlu PO DAILY [facility] Diphenhydramine HCl (Benadryl) 25 mg PO Q8H PRN PRN Reason: Itching / Pruritus Divalproex Sodium (Depakote Sprinkles) 125 mg PO BID [facility]; Protocol Last Admin: 07/01/18 21:24 Dose: 125 mg Famotidine (Pepcid) 20 mg PO BID [facility] Meropenem (Merrem Iv 1 Gm Premix) 1 gm in 50 mls @ 100 mls/hr IVPB Q12 [facility]; Protocol Stop: 07/11/18 10:01 Potassium Chloride 40 meq/ (Lactated Ringer's) 1,020 mls @ 70 mls/hr IV .[id number] [facility] Magnesium Sulfate (Magnesium Sulfate 2 Gm/50 Ml Water) 2 gm in 50 mls @ 50 mls/hr IVPB Q3H [facility] Stop: 07/02/18 12:29 Potassium Chloride (Potassium Chloride 20 Meq/100 Ml) 20 meq in 100 mls @ 50 mls/hr IVPB Q2H [facility] Stop: 07/02/18 12:29 Levothyroxine Sodium (Synthroid) 25 mcg PO ACB [facility] Metoprolol Tartrate (Lopressor) 50 mg PO BID [facility] Ondansetron HCl (Zofran Inj) 4 mg IVP Q4H PRN PRN Reason: Nausea/Vomiting Potassium Chloride (K-Dur 20 Meq Er Tab) 20 meq PO BID [facility] Vancomycin HCl (Vancocin 25 Mg/Ml (Oral Use)) 125 mg PO QID [facility]; Protocol Last Admin: 07/01/18 21:04 Dose: 125 mg Physical Exam - Constitutional Appears: Non-toxic, No Acute Distress Additional comments: agitated at times; - Head Exam Head Exam: NORMAL INSPECTION - Eye Exam Eye Exam: Normal appearance. absent: Scleral icterus - ENT Exam ENT Exam: Mucous Membranes Moist Additional comments: dry tongue - Respiratory Exam Respiratory Exam: Clear to Auscultation Bilateral. absent: Respiratory Distress - Cardiovascular Exam Cardiovascular Exam: RRR, +S1, +S2. absent: Gallop, Rubs - GI/Abdominal Exam GI & Abdominal Exam: Soft. absent: Distended, Tenderness - Exam Exam: absent: Bladder Distension - Extremities Exam Additional comments: trace lower leg edema; chronic stasis discoloration of bilateral lower legs; - Neurological Exam Neurological exam: Alert Additional comments: no resting tremor; - Psychiatric Exam Psychiatric exam: Agitated - Skin Skin Exam: Warm Additional comments: no cyanosis Results - Vital Signs Recent Vital Signs: Last Vital Signs Temp 98.2 F 07/01/18 18:45 Pulse 84 07/01/18 22:00 Resp 20 07/02/18 03:27 BP 131/80 07/01/18 20:00 Pulse Ox 99 07/01/18 23:07 - Labs Result Diagrams: 07/02/18 07:00 07/02/18 07:00 Labs: Laboratory Results - last 24 hr 07/01/18 07/01/18 07/01/18 17:20 17:20 17:20 WBC 9.9 RBC 4.13 Hgb 12.9 L Hct 37.9 L MCV 91.8 MCH 31.2 MCHC 34.0 RDW 14.0 Plt Count 144 MPV 9.6 Gran % 81.3 H Lymph % (Auto) 10.8 L Island % (Auto) 5.4 Eos % (Auto) 2.4 Baso % (Auto) 0.1 Gran # 8.05 H Lymph # (Auto) 1.1 L Island # (Auto) 0.5 Eos # (Auto) 0.2 Baso # (Auto) 0.01 PT INR APTT Sodium 142 Potassium 3.2 L Chloride 106 Carbon Dioxide 27 Anion Gap 12 BUN 26 H Creatinine 2.0 H Est GFR ( Amer) 41 Est GFR (Non-Af Amer) 34 Random Glucose 107 Calcium 8.3 L Phosphorus Magnesium Total Bilirubin 1.5 H Direct Bilirubin AST 21 ALT 22 Alkaline Phosphatase 83 Total Protein 6.6 Albumin 3.3 Globulin 3.3 Albumin/Globulin Ratio 1.0 L Triglycerides Cholesterol LDL Cholesterol Direct HDL Cholesterol Free T4 Thyroxine (T4) TSH 3rd Generation Urine Color Yellow Urine Appearance Slight-cloudy Urine pH 6.0 Ur Specific [place] 1.020 Urine Protein 30 H Urine Glucose (UA) Negative Urine Ketones Negative Urine Blood Large H Urine Nitrate Negative Urine Bilirubin Negative Urine Urobilinogen 0.2 Ur Leukocyte Esterase Large H Urine RBC 2 - 5 Urine WBC 10 - 15 Ur Epithelial Cells None Urine Bacteria Trace Salicylates Urine Opiates Screen Urine Methadone Screen Acetaminophen Ur Barbiturates Screen Valproic Acid Ur Phencyclidine Scrn Ur Amphetamines Screen U Benzodiazepines Scrn U Oth Cocaine Metabols U Cannabinoids Screen Alcohol, Quantitative 07/01/18 07/01/18 07/01/18 17:20 17:20 17:20 WBC RBC Hgb Hct MCV MCH MCHC RDW Plt Count MPV Gran % Lymph % (Auto) Island % (Auto) Eos % (Auto) Baso % (Auto) Gran # Lymph # (Auto) Island # (Auto) Eos # (Auto) Baso # (Auto) PT INR APTT Sodium Potassium Chloride Carbon Dioxide Anion Gap BUN Creatinine Est GFR ( Amer) Est GFR (Non-Af Amer) Random Glucose Calcium Phosphorus Magnesium Total Bilirubin Direct Bilirubin AST ALT Alkaline Phosphatase Total Protein Albumin Globulin Albumin/Globulin Ratio Triglycerides Cholesterol LDL Cholesterol Direct HDL Cholesterol Free T4 Thyroxine (T4) TSH 3rd Generation Urine Color Urine Appearance Urine pH Ur Specific [place] Urine Protein Urine Glucose (UA) Urine Ketones Urine Blood Urine Nitrate Urine Bilirubin Urine Urobilinogen Ur Leukocyte Esterase Urine RBC Urine WBC Ur Epithelial Cells Urine Bacteria Salicylates < 1 L Urine Opiates Screen Negative Urine Methadone Screen Negative Acetaminophen < 10.0 L Ur Barbiturates Screen Negative Valproic Acid Ur Phencyclidine Scrn Negative Ur Amphetamines Screen Negative U Benzodiazepines Scrn Positive H U Oth Cocaine Metabols Negative U Cannabinoids Screen Negative Alcohol, Quantitative < 10 07/01/18 07/01/18 07/01/18 18:50 19:00 19:00 WBC RBC Hgb Hct MCV MCH MCHC RDW Plt Count MPV Gran % Lymph % (Auto) Island % (Auto) Eos % (Auto) Baso % (Auto) Gran # Lymph # (Auto) Island # (Auto) Eos # (Auto) Baso # (Auto) PT 15.2 H INR 1.33 APTT 28.3 Sodium Potassium Chloride Carbon Dioxide Anion Gap BUN Creatinine Est GFR ( Amer) Est GFR (Non-Af Amer) Random Glucose Calcium Phosphorus Magnesium Total Bilirubin Direct Bilirubin AST ALT Alkaline Phosphatase Total Protein Albumin Globulin Albumin/Globulin Ratio Triglycerides Cholesterol LDL Cholesterol Direct HDL Cholesterol Free T4 1.34 Thyroxine (T4) 5.5 TSH 3rd Generation 1.76 Urine Color Urine Appearance Urine pH Ur Specific [place] Urine Protein Urine Glucose (UA) Urine Ketones Urine Blood Urine Nitrate Urine Bilirubin Urine Urobilinogen Ur Leukocyte Esterase Urine RBC Urine WBC Ur Epithelial Cells Urine Bacteria Salicylates Urine Opiates Screen Urine Methadone Screen Acetaminophen Ur Barbiturates Screen Valproic Acid 26 L Ur Phencyclidine Scrn Ur Amphetamines Screen U Benzodiazepines Scrn U Oth Cocaine Metabols U Cannabinoids Screen Alcohol, Quantitative 07/02/18 07/02/18 07/02/18 07:00 07:00 07:00 WBC 8.4 RBC 4.09 Hgb 12.5 L Hct 37.9 L MCV 92.7 MCH 30.6 MCHC 33.0 RDW 14.1 Plt Count 151 MPV 10.1 Gran % 72.1 H Lymph % (Auto) 19.2 L Island % (Auto) 5.7 Eos % (Auto) 2.9 Baso % (Auto) 0.1 Gran # 6.06 Lymph # (Auto) 1.6 Island # (Auto) 0.5 Eos # (Auto) 0.2 Baso # (Auto) 0.01 PT INR APTT Sodium 142 Potassium 3.0 L Chloride 106 Carbon Dioxide 27 Anion Gap 12 BUN 26 H Creatinine 1.9 H Est GFR ( Amer) 44 Est GFR (Non-Af Amer) 36 Random Glucose 92 Calcium 8.3 L Phosphorus 3.8 Magnesium 1.5 L Total Bilirubin 1.7 H Direct Bilirubin 0.2 AST 17 ALT 26 Alkaline Phosphatase 75 Total Protein 6.3 Albumin 3.2 Globulin 3.2 Albumin/Globulin Ratio 1.0 L Triglycerides 131 Cholesterol 95 L LDL Cholesterol Direct 55 HDL Cholesterol 19 L Free T4 1.18 Thyroxine (T4) 5.0 L TSH 3rd Generation 2.26 Urine Color Urine Appearance Urine pH Ur Specific [place] Urine Protein Urine Glucose (UA) Urine Ketones Urine Blood Urine Nitrate Urine Bilirubin Urine Urobilinogen Ur Leukocyte Esterase Urine RBC Urine WBC Ur Epithelial Cells Urine Bacteria Salicylates Urine Opiates Screen Urine Methadone Screen Acetaminophen Ur Barbiturates Screen Valproic Acid Ur Phencyclidine Scrn Ur Amphetamines Screen U Benzodiazepines Scrn U Oth Cocaine Metabols U Cannabinoids Screen Alcohol, Quantitative - Imaging and Cardiology CT scan - abdomen Status: Image reviewed by me Additional comment: no hydronephrosis Assessment & Plan - Assessment and Plan (Free Text) Assessment: 1- Acute kidney injury - TROY on CKD IIIB; serum creatinine increased from 1.4 (on 06/27 per [place] lab) -> 1.9 currently; trend of labs shows frequent fluctuations in serum creatinine which is likely of cardiorenal etiology in the setting of severe pulm htn and RV dysfunction; however, lasix dose was recently decreased and losartan discontinued; need to consider medication reaction (cannot rule out AIN) with multiple antibiotics courses and recently started on ampicillin and cefepime at [place]; -Monitor renal function now that patient off the above 2 antibiotics; -Will continue to hold diuretics for now as patient appears euvolemic on exam; -Agree with gentle IVF (LR at 70 cc/hr); -Continue to hold losartan; -Avoid nephrotoxic agents; -Check random vanco level in am (single IV vanco dose given today); 2- HTN - BP well controlled with patient only on metoprolol 50 mg bid, continue same; 3- CKD IIIA - Patient with modest proteinuria by urine prot/creat ratio (~800 mg/g) earlier this month, although may have been affected presence of UTI; -obtaining limited serologic workup for proteinuric CKD; checking C3, C4, SPEP, serum immunofixation and free light chains; 4- CHF - With preserved LV EF but has pulm htn and RV dysfunction; currently not edematous; will recommend to restart lasix 40 mg bid and losartan at lower dose once renal function closer to baseline; 5- UTI - With gross pyuria; on meropenem and received dose of IV vanco; continue to dose antibiotics for CrCl < 40 ml/min for now; 6- Electrolyte imbalance - Hypokalemia in the setting of having been on lasix, worse after losartan was held; getting IV replenishment (patient refusing PO ealier); agree with IV mag sulfate (nursing staff instructed to run mag slow - 1g/hr - to avoid renal wasting); Thank you for this referral, we will continue to follow closely.
--- NOTE | 2018-07-02 12:22 | CT ---
Date of service: 07/01/2018 PROCEDURE: CT HEAD WITHOUT CONTRAST. HISTORY: agitation COMPARISON: 02/23/2018 TECHNIQUE: Axial computed tomography images were obtained through the head/brain without intravenous contrast. Radiation dose: Total exam DLP = 985.69 mGy-cm. This CT exam was performed using one or more of the following dose reduction techniques: Automated exposure control, adjustment of the mA and/or kV according to patient size, and/or use of iterative reconstruction technique. FINDINGS: HEMORRHAGE: No intracranial hemorrhage. BRAIN: No mass effect or edema. Mild diffuse atrophy slightly greater than expected for patient age. Two small areas of encephalomalacia in the right frontal lobe and 2 small areas of encephalomalacia in the high left frontal lobe, unchanged from prior CT. Most likely reflecting small bilateral MCA territory infarcts. Small old bilateral basal ganglia lacunar infarcts. Old pontine lacunar infarcts. There is moderate patchy and confluent periventricular and deep/subcortical White matter lucency consistent with microvascular ischemic change. There is no evidence of acute infarct. Normal ruvalcaba-white matter differentiation is preserved. VENTRICLES: Unremarkable. No hydrocephalus. CALVARIUM: Unremarkable. PARANASAL SINUSES: Unremarkable as visualized. No significant inflammatory changes. MASTOID AIR CELLS: Unremarkable as visualized. No inflammatory changes. OTHER FINDINGS: None. IMPRESSION: No intracranial mass, hemorrhage or evidence of acute infarct. Small old bilateral MCA territory infarcts. Old bilateral basal ganglia lacunar infarcts. Small old pontine lacunar infarcts. Moderate periventricular and deep/subcortical white matter lucency greater than expected for patient age, consistent with microvascular white matter ischemic change. Mild atrophy greater than expected for patient age. The preliminary findings for this examination were reported by [facility]iology at 7:48 p.m. on 07/01/2018.. There is concurrence of this report with the preliminary findings.
[2018-07-02] MEDS: Divalproex 125 mg EC Sprinkle Cap PO SCH ×3 (12:48→19:57)
[2018-07-02] MEDS: Vancomycin 25 MG/ML PO SCH ×4 (12:54→21:28)
[2018-07-02] MEDS: Meropenem IV 1 gm in NS 1 GM/50 ML BAG IVPB SCH (13:26)
[2018-07-02 13:38] LABS: FOLATE 6.2 ng/mL
[2018-07-02] MEDS ORDERED: DiphenhydrAMINE 50 mg/ml Inj IM ONE (14:47)
--- NOTE | 2018-07-02 15:51 | PN ---
DATE: 07/02/2018 SUBJECTIVE: The patient is seen in room 563, bed 1. The patient's overnight nurse's notes were reviewed. The patient was episodically found to be yelling, screaming, but also the patient was noted to be sleeping intermittently as per the nurse's note. The patient at present is calm. The patient does not appear to be any distress. PHYSICAL EXAMINATION: VITAL SIGNS: T-max 98.2, heart rate 84-90, blood pressure 131/80, respiration 18, O2 sat 90%. HEAD: Normocephalic, atraumatic. HEENT examination shows pinkish conjunctivae. Anicteric sclerae. No oropharyngeal lesion. Positive apraxia, dysarthria, aphasia noted. No neck rigidity. CHEST: Kyphosis. LUNGS: Shows no rales, crackles or wheezing. CARDIOVASCULAR: S1, S2, regular rhythm. Positive systolic murmur in left sternal border, right second intercostal space, left second intercostal space. ABDOMEN: Obese. Positive bowel sound. Healed surgical scar of gastric bypass. Positive suprapubic cystostomy noted. GENITALIA: Male. EXTREMITIES: Shows positive lymphedema of the lower extremity with decreasing swelling. Positive discoloration of bilateral lower extremities. MUSCULOSKELETAL: Shows an elevated body mass index. Motor strength, the patient has slight weakness of the right upper and lower extremity, but is able to move upper and lower extremity bilaterally. Gait examination is not tested. VASCULAR: Could not be palpated. DIAGNOSTICS: On 06/29/2018, WBC 8.4, hemoglobin/hematocrit 12.5 and 38, platelets 151. Sodium 142, potassium is down to 3, chloride 106, CO2 of 27, BUN 26, creatinine down to 1.9, glucose 92, calcium 8.3, phosphorus 3.8, magnesium 1.5. TSH is 1.7 and 2.26, cholesterol 95, LDL of 55, HDL is only 19. CAT scan of the abdomen and pelvis shows cholelithiasis and gallstones, right renal cyst, status post gastric bypass. prostatomegaly and suprapubic cystostomy. CT of the head was done which shows old right frontal infarct, microvascular ischemic disease and cerebral cortical atrophy of the brain. IMPRESSION AND PLAN: 1. Episodic agitation and restlessness with possible behavioral disorder. 2. History of cerebrovascular accident with right-sided hemiparesis. 3. Questionable and possible Clostridium difficile associated diarrhea. 4. Normocytic anemia. 5. History of Clostridium difficile colitis. 6. Hypokalemia. 7. Acute kidney injury (resolving). 8. Hypomagnesemia. 9. History of hypothyroidism. 10. Episodic agitation and restlessness, probably secondary to aphasia, apraxia and dysarthria. 11. Cholelithiasis. 12. Right renal cyst. 13. History of gastric bypass. 14. Prostatomegaly. 15. Voiding dysfunction status post suprapubic cystostomy. 16. Old right frontal infarct. 17. Microvascular ischemic disease of the brain. 18. Cerebral cortical atrophy of the brain. 19. Decreased high-density lipoprotein. PLAN: At this time, the patient is to be continued on the treatment and therapeutic intervention as per the MAR. The patient is awaiting Neurology, Psychiatry, Gastroenterology, Infectious Disease, Podiatry, Urology evaluation and recommendation. The patient is to be continued on p.o. Vancocin. The patient is to be continued on IV fluid until the patient's renal functions are to baseline. The patient's potassium supplementation and K-riders has been ordered x2, magnesium sulfate riders have been ordered x2. The patient is to be continued on therapeutic intervention as per the MAR of today. The patient will be continued on Eliquis for atrial fibrillation. The patient will be continued on gastrointestinal and deep venous thrombosis prophylaxis. The patient will be continued on all the therapeutic intervention as per the MAR. The patient has been ordered speech therapy, swallowing evaluation, physical therapy, occupational therapy, ambulation therapy. Dictated and electronically signed, not read. Rashad Brown MD
--- NOTE | 2018-07-02 16:52 | CON ---
DATE: 07/02/2018 NEUROLOGY CONSULTATION CHIEF COMPLAINT: Combative and agitated behavior. HISTORY OF PRESENT ILLNESS: This is a 63-year-old man with past medical history of bilateral CVAs and encephalomalacia one in the right frontal lobe and one in the left frontal lobe with residual aphasia and right-sided residual weakness, pulmonary hypertension, systolic CHF with EF of 25%, COPD, hypertension, chronic lymphedema, AFib, on Eliquis, morbid obesity, neurogenic bladder with suprapubic catheter, on antibiotic therapy for urinary tract infection, came in from [facility] for agitation and combative behavior. The patient was recently seen in hospital for neurogenic bladder for complications suprapubic catheter, which was rectified. In the ER, the patient was given 0.25 Xanax. Urine drug screen was in normal limits. CAT scan of the head showed no acute intracranial abnormalities, chronic encephalomalacia of the right frontal as well as left frontal lobe and bilateral basal ganglia lacunar infarcts. His EKG showed AFib with rate of 85 beats per minute, no ST changes, and chest x-ray showed no acute findings or presence of severe cardiomegaly. He was having multiple episodes of watery diarrhea and has C. diff positive antigen on toxin and he is on antibiotics. The patient does have cognitive impairment from underlying vascular dementia from the CVA with behavioral disturbances. He is on Eliquis for stroke prevention and Lipitor for dyslipidemia and aspirin for antiplatelet therapy. PAST MEDICAL HISTORY: As above. ALLERGIES: NO KNOWN DRUG ALLERGIES. MEDICATIONS: Reviewed by nurses' reconciliation sheet. FAMILY HISTORY: Noncontributory. PAST SURGICAL HISTORY: Lap band and left shoulder surgery. REVIEW OF SYSTEMS: Fourteen-point review of systems is negative except as per the HPI. SOCIAL HISTORY: No alcohol and substance abuse. Denies any tobacco use. LABORATORY DATA: Sodium is 142, potassium 3, chloride 106, carbon dioxide 27, BUN of 26, creatinine 1.9, random glucose of 92, A1c of 5.1, B12 level of 654, vitamin D level 52. PHYSICAL EXAMINATION: VITAL SIGNS: Temperature 98.2, pulse rate of 84, blood pressure 134/80, respiratory rate 18, oxygen saturation 98% on room air. GENERAL: The patient is sitting up in bed, in no acute distress, lethargic. HEENT: Atraumatic, normocephalic. PERRLA. Extraocular muscles intact. NECK: Supple. No JVD. No adenopathy noted. HEART: S1 and S2. Regular rate and rhythm. No murmurs, rubs or gallops. ABDOMEN: Soft, nontender and nondistended. Bowel sounds are present. EXTREMITIES: No clubbing. No cyanosis. Peripheral pulses 2+ felt bilaterally. The patient is morbidly obese. NEUROLOGIC: The patient is mildly lethargic, but following simple commands. Speech has residual aphasia from prior CVA. Cranial nerves II through XII intact. Motor: He has residual right-sided weakness from prior CVA. Left side is intact. Toes are downgoing bilaterally. Sensory: Light touch, pinprick, proprioception, and vibration are intact. DTRs are 2+ throughout, 1 at both knees and ankles. Coordination: Oeantp-du-bing intact on the left, but difficult on the right due to residual right-sided weakness. Gait is deferred for now. IMPRESSION: This is a 63-year-old man with past medical history of cerebrovascular accident, residual aphasia, right-sided weakness, pulmonary hypertension, systolic congestive heart failure with ejection fraction of 25%, chronic obstructive pulmonary disease, hypertension, chronic lymphedema, atrial fibrillation, on Eliquis, morbid obesity, neurogenic bladder with suprapubic catheter, on antibiotic therapy, who presented from [facility] for agitation and combative behavior, which is likely secondary to toxic metabolic encephalopathy superimposed on underlying vascular dementia from underlying cerebrovascular accident with behavioral disturbance. At this time, he is positive for Clostridium difficile and is on antibiotics vancomycin. RECOMMENDATIONS: 1. Continue antibiotics for underlying C. diff. 2. Monitor electrolytes and correct accordingly. 3. Continue with aspirin 81 and Lipitor 40 and Eliquis for given that he has AFib for stroke prevention. 4. Continue with Depakote 250 mg p.o. b.i.d. for underlying behavioral disturbance and follow up with Psychiatry in regards to the agitation, could consist Seroquel 25 mg p.o. at bedtime for agitated behavior. 5. Continue with speech therapy, physical and occupational therapy, and rehabilitation for residual weakness and aphasia from CVA and continue current present medical management. Thank you for this consult. Sixto Barker MD [facility] # [id number]
--- NOTE | 2018-07-02 19:35 | CON ---
DATE: 07/02/2018 LOCATION: The patient is in room 563. CHIEF COMPLAINT: A 63-year-old male with a history of cerebrovascular accident. The patient has a suprapubic catheter, antibiotics and PICC line, presents from the assisted with a combative behavior per psychiatric evaluation. HISTORY OF PRESENT ILLNESS: The patient at this point is a very poor historian and unable to give any information, but no fevers and no chills have reported. He has minimal shortness of breath. No cough. No abdominal pain, diarrhea or constipation. REVIEW OF SYSTEMS: A 12-point review of systems is performed. PAST MEDICAL HISTORY: Significant for hypertension, cerebrovascular accident, GERD, arthritis, urinary retention, congestive heart failure, systolic congestive heart failure with ejection fraction of 25%, atrial fibrillation, chronic lymphedema and COPD. The patient also has had gastric bypass. PAST SURGICAL HISTORY: Significant for gastric bypass. The patient has had a suprapubic catheter, did have a PICC line placement. ALLERGIES: THE PATIENT HAS NO KNOWN ALLERGIES. PHYSICAL EXAMINATION VITAL SIGNS: Temperature is 98, blood pressure is 130/80, respiratory rate of 18, heart rate of 86. HEENT: Unremarkable. NECK: Supple. LUNGS: Decreased breath sounds. HEART: Decreased breath sounds. ABDOMEN: Soft and nontender. EXTREMITIES: Reveals chronic changes. No evidence of infection. LABORATORY EXAMINATION: Reveals a white count of 9.9, hemoglobin of 12 and platelets of 144. Urinalysis is noted 10-15 wbc's, 30 protein. Toxicology is also noted. Microbiology is noted. CAT scan of abdomen pelvis is done. CAT scan of the head is done, the results are not available. The patient had a chest x-ray, the lungs are inflated and clear. History and physical examination is also noted. ASSESSMENT/PLAN: This is a 63-year-old male with cerebrovascular accident, residual aphasia, right-sided weakness, congestive heart failure which is systolic with ejection fraction of 25%, chronic obstructive pulmonary disease, chronic lymphedema, atrial fibrillation, morbid obesity presenting with change in mental status, mostly rule out infectious etiology urine as the source. Will start the patient empirically on vancomycin and meropenem pending carr culture results and initial workup results. We will follow closely. Pending CT scan of the head and abdomen. Minh Padilla MD [facility] # [id number]
[2018-07-02] MEDS: Magnesium Sulfate 2 GM in Sodium Chloride 0.9% 100 ML IV SCH ×2 (20:56→23:58)
--- NOTE | 2018-07-03 01:16 | HP ---
DATE OF EXAM: 07/01/2018 HISTORY OF PRESENT ILLNESS: The patient is a 63-year-old male with multiple hospitalizations to [facility], was sent to the [facility] Emergency Room by the [facility] for psychiatry evaluation because the patient was found to be combative, aggressive and was punching and trying to hit the nursing staff. The patient was brought to the emergency room by the EMS in [facility] ambulance. According to the ER staff evaluation, the patient presented with aggressive and combative behavior. The patient denies any falls, injuries. Height is 5 feet 6 inches. Weight is 290 pounds. BMI is 47. ALLERGIES: NONE. The patient's last discharge medications as per 06/20/2018. The patient was just recently discharged, a week or two ago Last discharge medications, Tylenol p.o. suppository q. 6 p.r.n., DuoNeb nebulizer every 2 hours p.r.n., Xanax 0.25 mg at bedtime and Xanax 0.25 b.i.d., Lac-Hydrin lotion, Eliquis 2.5 twice a day, Ecotrin 81 daily, Lipitor 40 daily, vitamin D3 2000 international units daily, Benadryl 25 mg p.o. q. 8 p.r.n., Depakote 125 twice a day, Colace 100 mg three times a day, Synthroid 25 mcg daily, Linzess 290 mcg daily, Lopressor 50 mg twice a day. The patient was discharged on Flagyl 500 mg p.o. q. 8, multivitamin 1 tablet daily, Protonix 40 daily, MiraLax 17 g twice a day, K-Dur 20 mEq daily, Flomax 0.4 mg daily. The patient's Cozaar and Lasix were held because of renal insufficiency. CODE STATUS: Full code. LIVING WILL ADVANCE DIRECTIVE: None. SOCIAL HISTORY: Positive for alcohol use. Positive for substance use. Negative for smoking. As per them, all of the above is obtained through the [email or web address] information. FAMILY HISTORY: Not available. OCCUPATIONAL HISTORY: Disabled. Morbidly obese male. PAST MEDICAL AND SURGICAL HISTORY: History of severe noncompliance, history of acute cerebrovascular accident with history of right hemiparesis, history of anticoagulation dependent atrial fibrillation but the patient has been noncompliant with anticoagulation in the past, history of dilated cardiomyopathy, history of morbid obesity with gastric bypass surgery and weight loss surgery, history of pulmonary hypertension, history of moderate mitral regurgitation, history of bilateral lower extremity lymphedema and history of venous stasis cellulitis and venous stasis, history of moderately reduced right ventricular and left ventricular systolic function, history of moderately dilated left and right atrium, history of mitral regurgitation, history of moderate tricuspid regurgitation, history of severe pulmonary hypertension with right ventricular systolic pressure of 60 mmHg. The patient's past medical history is significant for acute left posterior frontal lobe precentral gyrus acute cortical infarct in 02/2018, history of right hemiparesis, history of bilateral cavernous internal carotid artery stenosis, history of expressive aphasia and dysarthria, history of extremely poor compliance, history of noncompliance, past medical history is significant for hematuria, history of voiding dysfunction, history of multidrug resistant Klebsiella pneumoniae urinary tract infection, removal of the urethral Sevilla bag, history of cerebrovascular accident with right hemiparesis, expressive aphasia, apraxia, dysarthria, history of laparoscopic gastric esophageal junction gastric banding, history of receptive cognitive deficit, history of expressive language deficit, history of dysarthria, oral verbal apraxia, history of thrombocytopenia, history of chronic kidney disease, history of chronic lymphedema of the lower extremity and bilateral lower extremity venous stasis and history of anticoagulation requiring atrial fibrillation, history of deconditioning, history of super morbid obesity with elevated body mass index, history of voiding dysfunction, history of urinary retention, history of neurogenic bladder with gross hematuria, history of suprapubic cystostomy placement, history of poor compliance, past medical history is significant for history of prostatic hypertrophy, history of prediabetes, history of bilateral lower extremity venous stasis cellulitis, lymphedema, history of cystitis, history of cholelithiasis, history of gallbladder sludge, history of degenerative joint disease of the spine, history of diastolic systolic congestive heart failure, history of positive substance abuse and alcohol use in the past. The patient's past medical history is significant for history of anticoagulation dependent atrial fibrillation, history of anxiety disorder, history of hypovitaminosis D. The patient's past medical history is significant for history of aggressive behavior, history of possible behavioral disorder, history of agitation, history of restlessness behavior and agitated behavior, history of possible mood disorder. The patient's past medical history is significant for poor compliance, history of agitated behavior. History of morbid obesity. The patient's past medical history is also significant for history of atrial fibrillation, congestive heart failure, hyperlipidemia, hypertension, hypothyroidism, gastric bypass, constipation, history of left knee surgery, history of degenerative joint disease, history of gait dysfunction, history of depression, history of alcohol and substance abuse in the past, history of MRSA infection of the lower extremity. PHYSICAL EXAMINATION: GENERAL: The patient was seen in stretcher #2 in the emergency room. VITAL SIGNS: T-max 98.2. Telemetry shows atrial fibrillation, heart rate 86-85, blood pressure is 139/81, respirations 18, O2 sat 98%. The patient is seen lying in the stretcher. HEENT: Head examination normocephalic, atraumatic. HEENT examination shows pink conjunctivae. Dry oral mucosa. No neck rigidity. No jugular venous distention. CHEST: Kyphosis. LUNGS: Shows no rales, crackles or wheezing. Questionable decreased breath sound at the base noted on the left more than the right. CARDIOVASCULAR: S1 and S2, irregular rhythm. Positive systolic murmur left sternal border, right second intercostal space left sternal border. ABDOMEN: Morbidly obese with healed surgical scar of gastric bypass and positive suprapubic cystostomy. GENITALIA: Male. RECTAL: Deferred. EXTREMITY: Shows positive chronic lymphedematous skin changes of the lower extremity. MUSCULOSKELETAL: Shows a body mass index of 47. NEUROLOGIC: The patient is alert, awake, responsive. Dysarthric and aphasic with right-sided mild weakness noted. GAIT: Not tested. VASCULAR: Unable to palpate lower extremity pulses because of lymphedema. Positive right upper and lower extremity slight weakness noted. DIAGNOSTICS: CBC shows a hemoglobin/hematocrit 12.9/37.8 and platelets 144. Granulocytes 82% segs. PT/PTT 15.2 and 28.3. The chemistry shows potassium 3.2, BUN 26, creatinine 2.0, calcium 8.3. The LFTs are within normal limits. Urinalysis 30 protein, large blood, large leukocyte esterase, bacteria trace. Salicylate negative. Opiates, methadone and Tylenol negative. Urine drug screen positive for benzos. Alcohol negative. The patient had CT of the abdomen and pelvis. CAT scan of the head. Chest x-ray reviewed. EKG shows atrial fibrillation, controlled heart rate in 80s. The patient was seen and evaluated in the emergency room by the physician clinical physician assistant, Mandy. The patient was noted to have an episode of diarrhea in the emergency room. The patient was treated in the emergency room by the physician clinical physician assistant. The patient was given potassium 40 p.o. and Xanax 0.25 and the patient's stool cultures were sent. IMPRESSION: 1. Questionable altered mental status with possible behavioral disorder with combative and aggressive behavior. 2. Questionable Clostridium difficile associated diarrhea. 3. Mild normocytic anemia. 4. Granulocytosis. 5. Hypokalemia. 6. Chronic kidney disease stage 3. 7. Status post suprapubic cystostomy. 8. Proteinuria. 9. Microscopic hematuria, pyuria, bacteriuria. 10. History of left-sided cerebral cortical infarct with right hemiparesis. 11. Cardiomegaly. 12. Dilated cardiomyopathy. 13. Pulmonary hypertension. 14. Bilateral lower extremity venous stasis and lymphedema. 15. Deconditioning. 16. Gait dysfunction. 17. Morbid obesity. 18. Atrial fibrillation. 19. Expressive aphasia, dysarthria, apraxia. 20. Hypertension. 21. History of anxiety. 22. Hyperlipidemia. 23. Coumadin-dependent atrial fibrillation. 24. Hypovitaminosis D. 25. History of hypothyroidism. 26. History of constipation, history of hypokalemia, history of prostatic hypertrophy. 27. History of noncompliance. PLAN: At this time, the patient is admitted to [facility] Med/Surg. The patient has been ordered thyroid profile, Depakote level, B12, folate, repeat CMP, thyroid panel, hemoglobin A1c, lipid panel, LFT, magnesium, phosphorus, vitamin D 25-hydroxy, PTH levels, CBC. Repeat C. diff has been ordered. Stool cultures had been ordered. Current consultation; Gastroenterology, Infectious Disease, Nephrology, Psychiatry, Podiatry and Neurology. The patient has been ordered RPR. CURRENT MEDICATIONS: Aspirin 81 mg daily, Benadryl 25 mg p.o. q. 8 p.r.n., Depakote 125 twice a day, DuoNeb nebulizer every 2 hours p.r.n., Eliquis 2.5 mg twice a day, K-Dur started at 20 mg twice a day, Ringer's lactate at 70 mL an hour, Lipitor 40 mg at bedtime., Lopressor 50 mg twice a day, Pepcid 20 mg twice a day. The patient is given a dose of potassium 40 mEq, Synthroid 25 mcg daily, Tylenol p.o. suppository q. 6 p.r.n. The patient started on vancomycin 125 mg q.i.d., vitamin D3 2000 international units daily, Xanax 0.25 mg b.i.d. and Xanax 0.25 mg at bedtime has been ordered. The patient has been ordered incentive spirometry. CAT scan of the abdomen, pelvis and CAT scan of the head has been ordered. Consistent carbohydrate diet ordered. Elevation of the head of the bed at 30 degrees. Out of bed, physical therapy, occupational therapy, speech therapy, swallowing evaluation. SCDs ordered. At present, the patient seen in the emergency room in bed 2. The patient's further management will be dependent upon the patient's clinical condition, hemodynamic status and as per the patient response to therapeutic intervention, as per the patient's diagnostic test results and as per recommendation by all the physician involved in the care of the patient. Dictated and electronically signed, not read. Rashad Brown MD
[2018-07-03] MEDS: Meropenem IV 1 gm in NS 1 GM/50 ML BAG IVPB SCH ×3 (02:04→21:13)
--- NOTE | 2018-07-03 02:54 | CON ---
DATE OF CONSULTATION: 07/02/2018 HISTORY OF PRESENT ILLNESS: The patient is a 63-year-old male with multiple medical issues including CVA, residual aphasia, expressive aphasia. The patient also has hypertension, systolic congestive heart failure with ejection fraction of 25%, COPD, hypertension, chronic lymphedema, atrial fibrillation, morbid obesity, neurogenic bladder with suprapubic catheter. The patient is on antibiotics. The patient was sent from [facility] for agitation and combative behavior, most likely secondary to toxic metabolic encephalopathy. The patient also has questionable underlying vascular dementia. Psych consult was called for evaluation of behavioral issues, which is expected for a patient with expressive aphasia as well as delirium. The patient is very familiar to this fiction and nonfiction prose writer from multiple admissions on the medical site and consultation services. This fiction and nonfiction prose writer tried to evaluate the patient, but there was no meaningful conversation possible. The patient is just giving this fiction and nonfiction prose writer a thumb up. The patient has no good appetite. Primary care was concerned about the patient losing appetite. On top of that, the patient has behavioral issues. The patient has episodes of screaming on top of his lungs with no obvious reasons. The patient also feels frustrated, but he cannot express himself very well. The patient was kicking yesterday. The patient has supportive family and the patient's [id number] is the patient's power of workers compensation attorney. VITAL SIGNS: Reviewed. MEDICATIONS: Reviewed. The patient is on Xanax only at the nighttime and the patient is on Depakote. Depakote level was 26, so we cannot increase the dose of Depakote. The patient also has tendency of refusing medications. LABORATORY DATA: Labs reviewed. MENTAL STATUS EXAMINATION: As this fiction and nonfiction prose writer described above, no meaningful conversation possible due to expressive aphasia. The patient stares at this fiction and nonfiction prose writer, gesticulates, sometimes screaming. Thought process seems to be disorganized, but I cannot say for sure, but the patient is not able to express himself. The patient was not able to answer for the question about suicidality, about voices, about paranoia. Insight and judgment seem to be impaired. Impulses are unpredictable. IMPRESSION: Agree with Neurology team. The patient is delirious and demented. In regards of the plan, this fiction and nonfiction prose writer would not recommend Seroquel because if the patient has dementia and will be on antipsychotic medication, risk of strokes, the patient already had strokes in the past. We will increase the dose of Depakote as well as Xanax in order to optimize the patient's behavior. Family should be involved. We will follow up and advise accordingly. Thank you very much for letting me participate in care of your patient. Should you have any questions, give me a call back. Shana Esposito MD
[2018-07-03 07:15] LABS: BASO # 0.01 K/mm3 (0.0-2.0); BASO % 0.1 % (0.0-3.0); EOS # 0.3 (0.0-0.7); EOS % 3.7 % (1.5-5.0); GRAN # 4.44 (1.4-6.5); GRAN % 66.7 % (50.0-68.0); HEMOGLOBIN 11.7 g/dL (14.0-18.0); LYMPH # 1.3 (1.2-3.4); LYMPH % 19.9 % (22.0-35.0); MEAN CELL VOLUME 93.2 fl (80.0-105.0); MEAN CORPUSCULAR HEMOGLOBIN 30.5 pg (25.0-35.0); MEAN CORPUSCULAR HGB CONC 32.7 g/dl (31.0-37.0); MEAN PLATELET VOLUME 9.5 fl (7.0-11.0); MONO # 0.6 (0.1-0.6); MONO % 9.6 % (1.0-6.0); RBC 3.84 10^6/uL (3.5-6.1); RED CELL DISTRIBUTION WIDTH 14.1 % (11.5-14.5); WHITE BLOOD COUNT 6.7 10^3/ul (4.5-11.0)
--- NOTE | 2018-07-03 07:18 | CON ---
DATE: 07/02/2018 GASTROENTEROLOGY CONSULTATION REQUESTING PHYSICIAN: Dr. Brown. REASON FOR CONSULTATION: I have been asked to see this 63-year-old male with a history of CVA with residual right-sided weakness, congestive heart failure with an ejection fraction of 25%, pulmonary hypertension, COPD, hypertension, atrial fibrillation on Eliquis, morbid obesity, neurogenic bladder and chronic lymphedema, who was transferred from [facility] for agitation and combative and disruptive behavior. The patient has had multiple recent hospitalizations for neurogenic bladder and complications from nonfunctioning suprapubic catheter. I have been asked to see this patient for diarrhea. He has not had any episodes of diarrhea while in the hospital. CT scan of the abdomen and pelvis revealed evidence of a gastric bypass and no acute findings or evidence of colitis or intestinal obstruction. PAST MEDICAL HISTORY: As above. He has multiple comorbidities including CVA with residual right-sided weakness, congestive heart failure with ejection fraction of 25%, pulmonary hypertension, neurogenic bladder, COPD, hypertension, chronic lymphedema, atrial fibrillation and morbid obesity. SOCIAL HISTORY: He has a history of alcohol and substance abuse. PAST SURGICAL HISTORY: Notable for gastric bypass and left shoulder surgery. FAMILY HISTORY: Unobtainable. REVIEW OF SYSTEMS: A 14-point review of systems is unobtainable as the patient is delirious and uncooperative. PHYSICAL EXAMINATION: GENERAL: Elderly male appearing older than stated age lying in bed, restless, and disoriented. VITAL SIGNS: Reveal temperature of 98.2, blood pressure 131/80, heart rate of 90. HEENT: Reveal sclerae to be white, conjunctivae pink. NECK: Supple. CHEST: Reveals scattered rhonchi bilaterally. HEART: Exam reveals an irregularly irregular rate. ABDOMEN: Obese, soft, and nontender. EXTREMITIES: Show chronic stasis changes of his legs with trace pedal edema. LABORATORY DATA: Reveals white blood cell count 8.4, hemoglobin 12.5, platelet count of 151,000. PT 15.2, INR 1.33, potassium of 3, BUN 26, creatinine 1.9, total bilirubin is 1.7. AST, ALT and alk phos are all normal. IMPRESSION: A 63-year-old male with agitation and [facility]ative behavior [facility] with diarrhea. The patient apparently has had multiple courses of antibiotics over the last several months. He does have an issue with neurogenic bladder, one must rule out pseudomembranous colitis. RECOMMENDATIONS: 1. Await stool for C. diff toxin and antigen. 2. Continue vancomycin 125 mg p.o. four times a day for now. Griffin Somers MD
[2018-07-03 07:30] LABS: BILIRUBIN,DIRECT 0.2 mg/dL (0.0-0.4); CALCIUM 8.4 mg/dL (8.4-10.5)
[2018-07-03] MEDS ORDERED: Potassium Chloride 20 mEq ER Tab PO ONE (08:08)
--- NOTE | 2018-07-03 09:05 | PN ---
DATE: 07/03/2018 SUBJECTIVE: The patient is lying in bed. He is nonverbal. He appears comfortable. PHYSICAL EXAMINATION: VITAL SIGNS: Reveal temperature of 97.8, blood pressure 169/107, heart rate of 110. HEENT: Reveals sclerae to be white. Conjunctivae pale. NECK: Supple. CHEST: Reveal lungs to be clear. HEART: reveals regular rate and rhythm. ABDOMEN: Soft. He has a suprapubic catheter. EXTREMITIES: Show trace pedal edema. LABORATORY DATA: Reveal white blood cell count 6.7, hemoglobin 11.7. Chemistries reveal potassium of 3.5. AST, ALT, alk phos were all normal. Total bilirubin is 1.4. Stool for C. diff antigen and toxin are positive. IMPRESSION: A 63-year-old male with neurogenic bladder with suprapubic catheter with diarrhea, found to have pseudomembranous colitis. RECOMMENDATIONS: We will increase the patient's vancomycin to 250 mg four times a day. Griffin Somers MD
[2018-07-03] MEDS: Vancomycin 25 MG/ML PO SCH ×3 (10:44→21:14)
[2018-07-03] MEDS: Divalproex 125 mg EC Sprinkle Cap PO SCH ×2 (10:47→18:17)
[2018-07-03] MEDS: Levothyroxine 25 MCG TAB PO SCH (10:48)
[2018-07-03] MEDS: Lactobacillus Acidophilus 500 MU Cap PO SCH ×3 (10:48→18:20)
[2018-07-03] MEDS: Potassium Chloride 20 mEq ER Tab PO SCH ×2 (10:50→18:20)
[2018-07-03] MEDS ORDERED: Potassium Chloride 40 MEQ in Lactated Ringer's 1,000 ML IV SCH (10:56)
[2018-07-03] MEDS: Cholecalciferol 1,000 INTLU TAB PO SCH (10:57)
--- NOTE | 2018-07-03 10:57 | PN ---
DATE: 07/03/2018 SUBJECTIVE: The patient is in bed, in no acute distress. PHYSICAL EXAMINATION: VITAL SIGNS: On exam, temperature is 98, blood pressure is 130/80, respiratory rate of 18. HEENT: Examination of HEENT is unremarkable. NECK: Supple. LUNGS: Have decreased breath sounds. HEART: Normal S1, S2. ABDOMEN: Soft, nontender. LABORATORY DATA: Laboratory examination reveals a white count of 6.7, hemoglobin 11, BUN of 22, creatinine of 1.6. Urinalysis is noted. Microbiology reveals the blood cultures are negative. The stool for C. diff is positive antigen and positive C. diff antigen and toxin. ASSESSMENT AND PLAN: A 63-year-old male, who was admitted with history of cerebrovascular accident, suprapubic catheter with congestive heart failure, low ejection fraction of 25%, chronic obstructive pulmonary disease, chronic lymphedema, atrial fibrillation, morbid obesity, presenting with change in mental status, now with pseudomembranous colitis, on p.o. vancomycin. We will check on the urine culture. If that is negative, we will discontinue the meropenem. The patient's chest x-ray is reported to be clear. We will follow with you. Minh Padilla MD
--- NOTE | 2018-07-03 11:32 | PN ---
DATE: 07/03/2018 SUBJECTIVE: Shortly, the patient is 63-year-old male with multiple medical issues. Please see Dr. Brown's note for more detailed information. This va underwriter got involved into the patient care for behavioral disturbances which is related to dementia and also multiple medical issues and also expressive aphasia. This va underwriter adjusted medication yesterday, Xanax 0.25 mg twice a day as needed, was started on Xanax 0.25 mg at the nighttime schedule, was continued. Depakote was increased to 250 mg twice a day. Please see notes for more detailed information. The patient was followed up today. The patient is deeply sleeping. As per nursing report, the patient has tendency of screaming and yelling asking for water, but when water is provided to the patient, the patient is throwing it on the floor. The patient has episodes of kicking but these episodes are not directed towards the people but the patient feels frustrated about inability to express himself well. Labs reviewed. Most recent was from today. Potassium 3.5, chloride is 108. Urinalysis showed leukocyte esterase large, blood large. Toxicology, benzodiazepines positive. Microbiology has C. diff positive in the stool. The patient is on contact isolation. C. diff positive for antigen and toxin. MENTAL STATUS EXAMINATION: The patient has episodes of agitation and delirium alternating with sleeping. There is no meaningful conversation possible. The patient has episodes of screaming and yelling, but there is no physical aggression. Insight and judgment severely impaired. Impulses are unpredictable. IMPRESSION: Delirium and dementia, vascular type. PLAN: Continue current management. Continue current medication. This va underwriter would not recommend antipsychotic medications as of now. The patient is on mood stabilizer Depakote as well as Xanax, short acting benzodiazepines. The patient will be followed up by this va underwriter every other day because there are no acute issues going on from the psychiatric standpoint. A behavioral issue is related to the medical issues, stroke, inability to express himself, delirium. Should you have any questions, give me a call back. Thank you very much for letting me participate in care of your patient. Shana Esposito MD [facility] # [id number]
--- NOTE | 2018-07-03 11:45 | PN ---
DATE: 07/03/2018 SUBJECTIVE: The patient is in room 563, bed 1. Overnight last 24, 12 hours nurse's notes were reviewed. The patient was noted by the nurses to be yelling, agitated, throwing things, refusing medications. The patient is lying in the bed. The patient needed assistance with 2 people to get out of the bed. The patient was evaluated by physical therapist. The patient was found by the nurses that the patient was incontinent of stool. The patient has positive expressive aphasia and dysarthria. PHYSICAL EXAMINATION: VITAL SIGNS: T-max 97.8; pulse 84-90-110; blood pressure 169/107, 148/97; respirations 20; O2 sat 97%. HEENT: Head examination normocephalic, atraumatic. HEENT examination shows pinkish pale conjunctivae. Anicteric sclerae. No oropharyngeal lesion. No neck rigidity. Positive dysarthria noted. Positive expressive aphasia noted. NECK: No neck rigidity. CHEST: Kyphosis. LUNGS: Shows occasional rhonchi, upper lung saini anteriorly. CARDIOVASCULAR: S1, S2, regular rhythm. Questionable soft systolic murmur, left sternal border, left second intercostal space, right second intercostal space. ABDOMEN: Obese. Positive surgical scar of gastric bypass noted. Positive suprapubic cystostomy noted. GENITALIA: Male. RECTAL: Deferred. EXTREMITY: Shows chronic lymphedematous changes of the lower extremity. MUSCULOSKELETAL: Shows an elevated body mass index. Gait examination could not be tested. NEUROLOGICAL: The patient has been found to be agitated, restless, yelling and screaming and refusing medication. DIAGNOSTICS: From 07/03/2018, WBC 6.7, hemoglobin and hematocrit 11.7 and 35.8, platelet 139. Sodium 140, potassium 3.5, chloride 108, CO2 of 27, BUN 22, creatinine down to 1.6, glucose 96, calcium 8.4, phosphorus 3.3, magnesium 2.5. Liver function tests are within normal limit. C. diff toxin and antigen both positive. The patient was seen by Neurology, Psychiatry, Nephrology and Gastroenterology. IMPRESSION AND PLAN: 1. Clostridium difficile associated diarrhea and colitis with Clostridium difficile toxin and antigen positive. 2. Delirium. 3. Vascular dementia. 4. Toxic metabolic encephalopathy. 5. Behavioral disorder. 6. Episodic agitation and noncompliance with medication treatment, etc. 7. Normocytic anemia. 8. Anticoagulation-dependent atrial fibrillation. 9. History of cerebrovascular infarct with right residual hemiparesis. 10. Expressive aphasia, dysarthria and apraxia. 11. Normocytic anemia. 12. Acute kidney injury with underlying chronic kidney disease stage 3 A and B. 13. Normocytic anemia. 14. Hypertension. 15. Atrial fibrillation. 16. Hypokalemia. 17. Hypomagnesemia. 18. Acute exacerbation of delirium and vascular dementia. 19. Right ventricular dysfunction with cardiorenal syndrome. 20. History of dilated cardiomyopathy and systolic congestive heart failure. 21. Gait dysfunction. 22. Bilateral lower extremity venous lymphedema. 23. Morbid obesity, history of gastric bypass surgery. 24. Neurogenic bladder with voiding dysfunction, status post suprapubic cystostomy. 25. History of hyperlipidemia. 26. History of chronic constipation. 27. History of degenerative joint disease of the spine, knees and hips. 28. Morbid obesity. At present, the patient is to be continued on therapeutic intervention as per the MAR of today, which was reviewed. Potassium supplementation is ordered. The patient is continued on IV fluid as per Nephrology recommendation. The patient is being followed up by Podiatry for podiatry care. The patient was seen by Gastroenterology. Vancomycin dose was increased to 250 mg p.o. four times a day. The patient was seen by Psychiatry and Neurology, their recommendations were noted and reviewed. The patient was seen by Gastroenterology. The patient was seen by Nephrology. The patient is to be continued on therapeutic intervention as per the MAR. The patient is to be continued on Eliquis for atrial fibrillation. The patient is awaiting MRI, MRA of the brain. The patient's CAT scan of the head was negative, which was reviewed for any acute infarct. At present, the patient has been also ordered physical therapy, occupational therapy, ambulation therapy, gait training, speech therapy, swallowing evaluation, but the patient was found to be uncooperative. Dictated and electronically signed, not read. Rashad Brown MD
--- NOTE | 2018-07-03 12:31 | CP.PCM.PN ---
Subjective - Date & Time of Evaluation Date of Evaluation: 07/03/18 Time of Evaluation: 12:28 - Subjective Subjective: Podiatry progress note for Dr. Sebastian/ Dr Byers, This is a 63 year old male with PMH of CVA with residual apashia and right sided weakness, pulmonary HTN, systolic CHF with EF of 25%, COPD, HTN, chronic lymphadema, atrial fibrillation on eliquis, morbid obesity, neurogenic bladder, and s/p suprapubic catheter seen at bedside for chronic lymphedema, and stasis ulcers in his legs. Patient is agitated and nonverbal. Denies f/n/v/sob. Objective - Vital Signs/Intake and Output Vital Signs (last 24 hours): Temp Pulse Resp BP Pulse Ox 98.1 F 90 20 133/83 96 07/03/18 06:00 07/03/18 10:49 07/03/18 06:00 07/03/18 10:49 07/03/18 06:00 Intake and Output: 07/03/18 07/03/18 06:59 18:59 Intake Total 1020 Output Total 500 Balance 520 - Medications Medications: Current Medications Acetaminophen (Tylenol 325mg Tab) 650 mg PO Q6 PRN PRN Reason: TEMP>=99.5F Acetaminophen (Tylenol 650 Mg Supp) 650 mg RC Q6H PRN PRN Reason: TEMP>=99.5F Albuterol/Ipratropium (Duoneb 3 Mg/0.5 Mg (3 Ml) Ud) 3 ml IH Q2H PRN PRN Reason: Shortness of Breath Alprazolam (Xanax) 0.25 mg PO HS [facility]; Protocol Stop: 07/08/18 22:01 Last Admin: 07/02/18 21:28 Dose: 0.25 mg Alprazolam (Xanax) 0.25 mg PO BID PRN; Protocol PRN Reason: agitation/anxiety Stop: 07/09/18 18:01 Apixaban (Eliquis) 2.5 mg PO BID [facility]; Protocol Last Admin: 07/03/18 10:48 Dose: 2.5 mg Aspirin (Aspirin Chewable) 81 mg PO DAILY [facility] Last Admin: 07/03/18 10:49 Dose: 81 mg Atorvastatin Calcium (Lipitor) 40 mg PO HS [facility] Last Admin: 07/02/18 21:29 Dose: 40 mg Cholecalciferol (Vitamin D) 2,000 intlu PO DAILY [facility] Last Admin: 07/03/18 10:57 Dose: Not Given Diphenhydramine HCl (Benadryl) 25 mg PO Q8H PRN PRN Reason: Itching / Pruritus Divalproex Sodium (Depakote Sprinkles) 250 mg PO BID [facility]; Protocol Last Admin: 07/03/18 10:47 Dose: 250 mg Famotidine (Pepcid) 20 mg PO BID [facility] Last Admin: 07/03/18 10:48 Dose: 20 mg Meropenem (Merrem Iv 1 Gm Premix) 1 gm in 50 mls @ 100 mls/hr IVPB Q12 [facility]; Protocol Stop: 07/11/18 10:01 Last Admin: 07/03/18 10:43 Dose: 100 mls/hr Potassium Chloride (Potassium Chloride 10 Meq/100 Ml) 10 meq in 100 mls @ 50 mls/hr IVPB Q2H [facility] Stop: 07/03/18 14:59 Last Admin: 07/03/18 11:27 Dose: 50 mls/hr Potassium Chloride 40 meq/ (Lactated Ringer's) 1,020 mls @ 40 mls/hr IV .Q24H [facility] Lactobacillus Acidophilus (Bacid Acidophilus) 1 cap PO TID [facility] Stop: 07/04/18 18:01 Last Admin: 07/03/18 10:48 Dose: 1 cap Levothyroxine Sodium (Synthroid) 25 mcg PO ACB [facility] Last Admin: 07/03/18 10:48 Dose: 25 mcg Metoprolol Tartrate (Lopressor) 50 mg PO BID [facility] Last Admin: 07/03/18 10:49 Dose: 50 mg Ondansetron HCl (Zofran Inj) 4 mg IVP Q4H PRN PRN Reason: Nausea/Vomiting Potassium Chloride (K-Dur 20 Meq Er Tab) 20 meq PO BID [facility] Last Admin: 07/03/18 10:50 Dose: 20 meq Vancomycin HCl (Vancocin 25 Mg/Ml (Oral Use)) 250 mg PO QID [facility]; Protocol Last Admin: 07/03/18 10:44 Dose: 250 mg - Labs Labs: 07/03/18 06:30 07/03/18 06:30 PT 15.2 SECONDS (9.4-12.5) H 07/01/18 18:50 INR 1.33 07/01/18 18:50 APTT 28.3 Seconds (25.1-36.5) 07/01/18 18:50 - Constitutional Appears: Well, Non-toxic, No Acute Distress - Head Exam Head Exam: ATRAUMATIC, NORMOCEPHALIC - Extremities Exam Additional comments: Vasc: DP/PT pulses 2/4 b/l. Cap refill > 3 seconds to all digits. Skin temperature warm to warm from proximal to distal. +2 edema noted to bilateral lower extremity Neuro: Unable to assess Ortho: Patient able to move digits Derm: Diffuse dermal change, hyperpigmentation and lichenification noted to bilateral extremities, no drainage, no open lesions, multiple scab like lesions noted b/l legs, no erythema, no purulence, no clinical signs of infection, skin is well hydrated - Neurological Exam Neurological Exam: Alert - Psychiatric Exam Psychiatric exam: Normal Affect - Skin Skin Exam: Normal Color Assessment and Plan - Assessment and Plan (Free Text) Assessment: 63 y/o M patient seen and evaluated at the bed side for bilateral lower extremity edema Plan: Patient seen and evaluated at the bedside Chart, labs and vitals reviewed; Afebrile, absent leukocytosis Bilateral lower extremities cleansed with saline and right LE dressed with xeroform, DSD Multipodus boots ordered for bilateral lower extremities and to be worn at all times to prevent heel breakdown Podiatry will follow the patient while in house.
[2018-07-03] MEDS: Nystatin 100,000 Units/gm Topical Pow(15 gm) TOP SCH (18:17)
[2018-07-03] MEDS: Morphine 2 mg/ml ISec IVP PRN (18:33)
--- NOTE | 2018-07-03 23:12 | CP.PCM.PN ---
Subjective - Date & Time of Evaluation Date of Evaluation: 07/03/18 Time of Evaluation: 10:30 - Subjective Subjective: 63 yo M w/ pmh of htn, s/p CVA w/ residual aphasia, afib on eliquis, neurogenic bladder s/p suprapubic catheter, and CKD III, admitted with AMS and TROY; Patient belligerent at times today, refusing PO meds, making gestures threatening to punch staff/providers, not eating much, not cooperating with exam; Objective - Vital Signs/Intake and Output Vital Signs (last 24 hours): Temp Pulse Resp BP Pulse Ox 97.9 F 61 18 154/88 H 97 07/03/18 23:02 07/03/18 23:02 07/03/18 23:02 07/03/18 23:02 07/03/18 23:02 Intake and Output: 07/03/18 07/04/18 18:59 06:59 Intake Total 600 Output Total 650 Balance -50 - Medications Medications: Current Medications Acetaminophen (Tylenol 325mg Tab) 650 mg PO Q6 PRN PRN Reason: TEMP>=99.5F Acetaminophen (Tylenol 650 Mg Supp) 650 mg RC Q6H PRN PRN Reason: TEMP>=99.5F Albuterol/Ipratropium (Duoneb 3 Mg/0.5 Mg (3 Ml) Ud) 3 ml IH Q2H PRN PRN Reason: Shortness of Breath Alprazolam (Xanax) 0.25 mg PO HS SACHIN; Protocol Stop: 07/08/18 22:01 Last Admin: 07/03/18 21:15 Dose: 0.25 mg Alprazolam (Xanax) 0.25 mg PO BID PRN; Protocol PRN Reason: agitation/anxiety Stop: 07/09/18 18:01 Last Admin: 07/03/18 17:37 Dose: 0.25 mg Apixaban (Eliquis) 2.5 mg PO BID [facility]; Protocol Last Admin: 07/03/18 18:17 Dose: 2.5 mg Aspirin (Aspirin Chewable) 81 mg PO DAILY [facility] Last Admin: 07/03/18 10:49 Dose: 81 mg Atorvastatin Calcium (Lipitor) 40 mg PO HS [facility] Last Admin: 07/02/18 21:29 Dose: 40 mg Cholecalciferol (Vitamin D) 2,000 intlu PO DAILY [facility] Last Admin: 07/03/18 10:57 Dose: Not Given Diphenhydramine HCl (Benadryl) 25 mg PO Q8H PRN PRN Reason: Itching / Pruritus Divalproex Sodium (Depakote Sprinkles) 250 mg PO BID [facility]; Protocol Last Admin: 07/03/18 18:17 Dose: 250 mg Famotidine (Pepcid) 20 mg PO BID [facility] Last Admin: 07/03/18 18:17 Dose: 20 mg Meropenem (Merrem Iv 1 Gm Premix) 1 gm in 50 mls @ 100 mls/hr IVPB Q12 [facility]; Protocol Stop: 07/11/18 10:01 Last Admin: 07/03/18 21:13 Dose: 100 mls/hr Potassium Chloride 40 meq/ (Lactated Ringer's) 1,020 mls @ 40 mls/hr IV .Q24H [facility] Lactobacillus Acidophilus (Bacid Acidophilus) 1 cap PO TID [facility] Stop: 07/04/18 18:01 Last Admin: 07/03/18 18:20 Dose: 1 cap Levothyroxine Sodium (Synthroid) 25 mcg PO ACB [facility] Last Admin: 07/03/18 10:48 Dose: 25 mcg Metoprolol Tartrate (Lopressor) 50 mg PO BID [facility] Last Admin: 07/03/18 18:20 Dose: 50 mg Morphine Sulfate (Morphine) 1 mg IVP Q6 PRN PRN Reason: Pain, moderate (4-7) Last Admin: 07/03/18 18:33 Dose: 1 mg Nystatin (Nystop Topical Powder) 0 gm TOP BID [facility] Last Admin: 07/03/18 18:17 Dose: 1 appl Ondansetron HCl (Zofran Inj) 4 mg IVP Q4H PRN PRN Reason: Nausea/Vomiting Potassium Chloride (K-Dur 20 Meq Er Tab) 20 meq PO BID [facility] Last Admin: 07/03/18 18:20 Dose: 20 meq Vancomycin HCl (Vancocin 25 Mg/Ml (Oral Use)) 250 mg PO QID [facility]; Protocol Last Admin: 07/03/18 21:14 Dose: 250 mg - Labs Labs: 07/03/18 06:30 07/03/18 06:30 PT 15.2 SECONDS (9.4-12.5) H 07/01/18 18:50 INR 1.33 07/01/18 18:50 APTT 28.3 Seconds (25.1-36.5) 07/01/18 18:50 - Constitutional Appears: Non-toxic, No Acute Distress - Eye Exam Eye Exam: Normal appearance - ENT Exam ENT Exam: Mucous Membranes Moist - Respiratory Exam Respiratory Exam: Clear to Ausculation Bilateral. absent: Respiratory Distress - Cardiovascular Exam Cardiovascular Exam: RRR, +S1, +S2. absent: Gallop, Murmur - GI/Abdominal Exam GI & Abdominal Exam: Soft. absent: Distended, Tenderness - Extremities Exam Additional comments: minimal leg edema; - Neurological Exam Neurological Exam: Alert, Awake - Psychiatric Exam Psychiatric exam: Agitated - Skin Skin Exam: Warm. absent: Cyanosis Assessment and Plan (1) TROY (acute kidney injury) Assessment & Plan: Renal function improved with IVF, serum creatinine still above baseline; pre- renal etiology in the setting of GI losses from diarrhea as well as continued diuretic use in NH; per nursing staff, urology evaluated patient and found suprapubic catheter to be draining well (concern about partial obstruction due to small catheter size and thick pus that was seen to be blocking flow into bag) ; -Need to avoid excessive IVF given pulm htn/RV dysfunction; decreasing LR to 40 cc/hr (for maintenance given decreased PO intake and GI losses); -Holding diuretics for now; -Restart losartan slowly to avoid loss of renal autoregulation (25 mg, had been on 100 mg); -Continue to avoid nephrotoxic agents; Status: Acute (2) Hypertension Assessment & Plan: BP elevated, on metoprolol 50 mg bid, continue; restarting losartan as above; Status: Acute (3) Hypokalemia Assessment & Plan: In the setting of GI losses; continue to replenish via PO and IV routes, goal is to keep K > 4 given afib history; monitor Mag (replenished yesterday); Status: Acute (4) Pulmonary HTN Assessment & Plan: Currently euvolemic, holding diuretics for now; Status: Chronic (5) CKD (chronic kidney disease) stage 3, GFR 30-59 ml/min Assessment & Plan: Serologic workup underway given modest proteinuria, will f/u; Status: Chronic (6) UTI (urinary tract infection) Status: Acute
[2018-07-04] MEDS: Vancomycin 25 MG/ML PO SCH ×5 (03:57→22:56)
[2018-07-04 07:12] LABS: BASO # 0.01 K/mm3 (0.0-2.0); BASO % 0.2 % (0.0-3.0); EOS # 0.2 (0.0-0.7); EOS % 3.7 % (1.5-5.0); GRAN # 3.51 (1.4-6.5); GRAN % 62.4 % (50.0-68.0); HEMOGLOBIN 11.7 g/dL (14.0-18.0); LYMPH # 1.6 (1.2-3.4); LYMPH % 27.7 % (22.0-35.0); MEAN CELL VOLUME 93.5 fl (80.0-105.0); MEAN CORPUSCULAR HEMOGLOBIN 30.5 pg (25.0-35.0); MEAN CORPUSCULAR HGB CONC 32.7 g/dl (31.0-37.0); MEAN PLATELET VOLUME 9.6 fl (7.0-11.0); MONO # 0.3 (0.1-0.6); RBC 3.83 10^6/uL (3.5-6.1); RED CELL DISTRIBUTION WIDTH 14.1 % (11.5-14.5); WHITE BLOOD COUNT 5.6 10^3/uL (4.5-11.0)
[2018-07-04 07:43] LABS: ALB/GLOB RATIO 0.9 (1.1-1.8); BILIRUBIN,DIRECT 0.2 mg/dL (0.0-0.4); CALCIUM 8.6 mg/dL (8.4-10.5)
[2018-07-04] MEDS: Meropenem IV 1 gm in NS 1 GM/50 ML BAG IVPB SCH (09:30)
[2018-07-04] MEDS: Divalproex 125 mg EC Sprinkle Cap PO SCH ×2 (09:33→19:15)
[2018-07-04] MEDS: Levothyroxine 25 MCG TAB PO SCH (09:35)
[2018-07-04] MEDS: Lactobacillus Acidophilus 500 MU Cap PO SCH ×3 (09:35→19:15)
[2018-07-04] MEDS: Cholecalciferol 1,000 INTLU TAB PO SCH (09:36)
[2018-07-04] MEDS: Potassium Chloride 20 mEq ER Tab PO SCH ×2 (09:37→19:16)
[2018-07-04] MEDS: Morphine 2 mg/ml ISec IVP PRN ×2 (09:42→15:46)
[2018-07-04] MEDS: Nystatin 100,000 Units/gm Topical Pow(15 gm) TOP SCH ×2 (09:44→19:22)
--- NOTE | 2018-07-04 10:50 | PN ---
DATE: 07/04/2018 FOLLOWUP NOTE SUBJECTIVE: The patient was followed up today. There is no improvement with the patient's presentation. The patient has expressive aphasia, periods of agitation. The patient is screaming out loud, nurse, nurse. When nurse approach the patient, the patient is not able to express himself. The patient is on mood stabilizer right now and small dose of benzodiazepines. The patient's power of senior trial attorney, [id number], Mandy left this news writer a message, . Mandy expressed her concerns about the patient's behavior. This news writer explained risks, benefits and alternatives of the medications, Depakote as well as Xanax. Mandy agreed with setting of the medications. Overall, prognosis is very poor based on the patient's presentation as well as multiple medical issues. Vital signs reviewed. Temperature 97.5, pulse is 75, blood pressure 135/72, respirations 18, oxygen saturation is 98. Medications reviewed. Tylenol, Xanax 0.25 mg will be increased and scheduled to twice a day and at the nighttime, the patient is on, aspirin, Lipitor, Vitamin D, Benadryl, Depakote was increased yesterday to 50 mg twice a day. The patient is on Pepcid, lactobacillus, Synthroid, Cozaar. The patient is on IV antibiotics, Merrem. The patient is on Lopressor, morphine, nystatin, Zofran, K-Dur, potassium chloride, vancomycin. Labs reviewed. Most recent was from today. MENTAL STATUS EXAMINATION: The patient presented to be calm, was screaming on top of the lungs. The patient does not present to be restless. The patient was not able to express himself very well. The patient is screaming, nurse, nurse. Insight and judgment seems to be severely impaired. Impulses are unpredictable. IMPRESSION: Delirium on dementia, vascular type. PLAN: Depakote was increased yesterday. Xanax will be given as scheduled. Family involved. Discussed with power of senior trial attorney today. This news writer also had prolonged conversation with Dr. Brown today. The patient most likely is at his baseline of functioning, but from the psychiatric standpoint is behavior is problematic, but behavior related to the medical issues and stroke what he had before. We will operative with mood stabilizers as well as small dose of benzodiazepines. Meanwhile, discuss with the family, primary care physician. We will follow up every other day. Should you have any questions, give me a call back. Shana Esposito MD [facility]
--- NOTE | 2018-07-04 10:56 | PN ---
DATE: 07/04/2018 SUBJECTIVE: The patient is lying in bed. He is awake. He is incontinent of soft loose stool. According to the patient's nurse, she has not had diarrhea. PHYSICAL EXAMINATION: VITAL SIGNS: Reveal temperature of 97.8, blood pressure 108/64, heart rate 61. HEENT: Reveals sclerae to be white. Conjunctivae pink. NECK: Supple. CHEST: Reveal lungs to be clear. HEART: Exam reveals regular rate and rhythm. ABDOMEN: Obese, soft. He has a suprapubic catheter. EXTREMITIES: Show chronic stasis changes of the lower extremities with 1+ pedal edema. LABORATORY DATA: Reveal white blood cell count 5.6, hemoglobin 11.7, platelet count of 139,000. IMPRESSION: A 63-year-old male with multiple comorbidities including history of cerebrovascular accident, neurogenic bladder requiring suprapubic catheter, altered mental status, chronic kidney disease, pulmonary hypertension with diarrhea, found to have pseudomembranous colitis. His diarrhea has responded to oral vancomycin. RECOMMENDATIONS: Continue vancomycin 250 mg four times a day for 14 days. No further GI workup is planned at this time. He is stable from a GI standpoint. Griffin Somers MD
--- NOTE | 2018-07-04 11:28 | PN ---
DATE: 07/04/2018 SUBJECTIVE: The patient is in bed, seen earlier this morning. No fevers, no chills. Had an uneventful night. PHYSICAL EXAMINATION: VITAL SIGNS: Temperature is 97, blood pressure is 130/70, respiratory rate of 18. HEENT: Unremarkable. NECK: Supple. LUNGS: Have decreased breath sounds. HEART: Normal S1, S2. ABDOMINAL: Soft, nontender. LABORATORY EXAMINATION: Reveals the blood cultures are negative. The stool cultures are negative. The stool C. diff is positive antigen and toxin. Review of orders reveals the patient to be on meropenem and also on p.o. vancomycin. ASSESSMENT AND PLAN: A 63-year-old male who was admitted with a history of cerebrovascular accident, suprapubic catheter, congestive heart disease and low ejection fraction of 25%, chronic obstructive pulmonary disease, chronic lymphedema, atrial fibrillation, morbid obesity with pseudomembranous colitis. We will discontinue meropenem and recommend 14 to 21 days of p.o. vancomycin. Minh Padilla MD
[2018-07-04 11:29] LABS: ALBUMIN (PEP) 2.9 g/dL (3.8-4.8); ALPHA-1-GLOBULIN (PEP) 0.3 g/dL (0.2-0.3)
--- NOTE | 2018-07-04 12:25 | MRI ---
Date of service: 07/04/2018 PROCEDURE: MRI BRAIN WITHOUT CONTRAST HISTORY: ams COMPARISON: 03/10/2016 TECHNIQUE: Multiplanar, multisequence MR images of the brain were obtained without intravenous contrast enhancement. FINDINGS: HEMORRHAGE: None DWI: No evidence of an acute or early subacute infarction. BRAIN PARENCHYMA: No mass effect or edema. Severe atrophy and extensive confluent chronic microvascular ischemic disease, not significant changed from multiple previous examinations. VENTRICLES: Unremarkable. No hydrocephalus. CRANIUM: Unremarkable. ORBITS: Grossly unremarkable. PARANASAL SINUSES/MASTOIDS: Clear VASCULAR SYSTEM: Skull base flow voids intact. OTHER FINDINGS: None. IMPRESSION: Severe atrophy and extensive confluent chronic microvascular ischemic disease, not significant changed from multiple previous examinations.
--- NOTE | 2018-07-04 16:25 | PCM.URO ---
Urology Progress Note - Objective Lab Studies: Reviewed (gu plans : maintain spt no gu changes) Lab Results Last 24 Hours: Laboratory Results - last 24 hr 07/02/18 07/04/18 07/04/18 08:00 06:30 06:30 WBC 5.6 RBC 3.83 Hgb 11.7 L Hct 35.8 L MCV 93.5 MCH 30.5 MCHC 32.7 RDW 14.1 Plt Count 139 MPV 9.6 Gran % 62.4 Lymph % (Auto) 27.7 [place] % (Auto) 6.0 Eos % (Auto) 3.7 Baso % (Auto) 0.2 Gran # 3.51 Lymph # (Auto) 1.6 [place] # (Auto) 0.3 Eos # (Auto) 0.2 Baso # (Auto) 0.01 Sodium 141 Potassium 4.0 Chloride 108 H Carbon Dioxide 28 Anion Gap 9 L BUN 18 Creatinine 1.5 Est GFR ( Amer) 58 Est GFR (Non-Af Amer) 48 Random Glucose 92 Calcium 8.6 Phosphorus 3.1 Magnesium 2.2 Total Bilirubin 1.2 Direct Bilirubin 0.2 AST 21 ALT 25 Alkaline Phosphatase 74 Total Protein 6.2 Albumin 3.0 Albumin (PEP) 2.9 L Globulin 3.2 Albumin/Globulin Ratio 0.9 L Dpofz-7-Zpbiczssc 0.3 Efefz-1-Olzglltvj 0.7 Xfld-5-Mfwxyljj 0.3 L Queg-0-Cgesxkeu 0.4 Gamma Globulins 1.0 Abnorm Protein Band 1 TEST NOT PERFORMED Abnorm Protein Band 2 TEST NOT PERFORMED Abnorm Protein Band 3 TEST NOT PERFORMED Random Vancomycin ABDIAZIZ & SPEP Interp See note 07/04/18 06:30 WBC RBC Hgb Hct MCV MCH MCHC RDW Plt Count MPV Gran % Lymph % (Auto) [place] % (Auto) Eos % (Auto) Baso % (Auto) Gran # Lymph # (Auto) [place] # (Auto) Eos # (Auto) Baso # (Auto) Sodium Potassium Chloride Carbon Dioxide Anion Gap BUN Creatinine Est GFR ( Amer) Est GFR (Non-Af Amer) Random Glucose Calcium Phosphorus Magnesium Total Bilirubin Direct Bilirubin AST ALT Alkaline Phosphatase Total Protein Albumin Albumin (PEP) Globulin Albumin/Globulin Ratio Xslxx-3-Jjedjumxe Zbecq-3-Khqroloyk Bsto-4-Ptlzwgbt Dbjp-7-Vjnhpwns Gamma Globulins Abnorm Protein Band 1 Abnorm Protein Band 2 Abnorm Protein Band 3 Random Vancomycin 9.1 L ABDIAZIZ & SPEP Interp Intake & Output: Intake & Output 07/03/18 07/04/18 07/04/18 18:59 06:59 18:59 Intake Total 600 780 Output Total 650 400 Balance -50 380 Intake: IV 480 Medial Port 480 Oral 600 300 Output: Urine 650 400 Urine, Voided 650 400 Other: # Bowel Movements 0 Vital Signs: Vital Signs - 24 hr 07/03/18 07/03/18 07/04/18 18:20 23:02 06:00 Temperature 97.9 F 97.5 F L Pulse Rate 70 61 75 Respiratory 18 18 Rate Blood Pressure 150/94 H 154/88 H 135/76 O2 Sat by Pulse 97 98 Oximetry 07/04/18 07/04/18 09:34 14:00 Temperature 97.8 F Pulse Rate 75 89 Respiratory 18 Rate Blood Pressure 135/72 O2 Sat by Pulse 99 Oximetry
--- NOTE | 2018-07-04 21:30 | CP.PCM.PN ---
Subjective - Date & Time of Evaluation Date of Evaluation: 07/04/18 Time of Evaluation: 11:00 - Subjective Subjective: Patient less agitated today; eating well today and taking all his meds per nursing staff after he was told he would be going home; Objective - Vital Signs/Intake and Output Vital Signs (last 24 hours): Temp Pulse Resp BP Pulse Ox 97.8 F 100 H 18 178/120 H 99 07/04/18 14:00 07/04/18 19:28 07/04/18 14:00 07/04/18 19:28 07/04/18 14:00 - Medications Medications: Current Medications Acetaminophen (Tylenol 325mg Tab) 650 mg PO Q6 PRN PRN Reason: TEMP>=99.5F Acetaminophen (Tylenol 650 Mg Supp) 650 mg RC Q6H PRN PRN Reason: TEMP>=99.5F Albuterol/Ipratropium (Duoneb 3 Mg/0.5 Mg (3 Ml) Ud) 3 ml IH Q2H PRN PRN Reason: Shortness of Breath Alprazolam (Xanax) 0.25 mg PO HS [facility]; Protocol Stop: 07/08/18 22:01 Last Admin: 07/03/18 21:15 Dose: 0.25 mg Alprazolam (Xanax) 0.25 mg PO BID [facility]; Protocol Stop: 07/11/18 18:01 Last Admin: 07/04/18 19:16 Dose: 0.25 mg Apixaban (Eliquis) 2.5 mg PO BID [facility]; Protocol Last Admin: 07/04/18 19:19 Dose: 2.5 mg Aspirin (Aspirin Chewable) 81 mg PO DAILY [facility] Last Admin: 07/04/18 09:36 Dose: 81 mg Atorvastatin Calcium (Lipitor) 40 mg PO HS [facility] Last Admin: 07/04/18 03:57 Dose: Not Given Cholecalciferol (Vitamin D) 2,000 intlu PO DAILY [facility] Last Admin: 07/04/18 09:36 Dose: 2,000 intlu Diphenhydramine HCl (Benadryl) 25 mg PO Q8H PRN PRN Reason: Itching / Pruritus Last Admin: 07/04/18 14:44 Dose: 25 mg Divalproex Sodium (Depakote Sprinkles) 250 mg PO BID [facility]; Protocol Last Admin: 07/04/18 19:15 Dose: 250 mg Famotidine (Pepcid) 20 mg PO BID [facility] Last Admin: 07/04/18 19:16 Dose: 20 mg Potassium Chloride 40 meq/ (Lactated Ringer's) 1,020 mls @ 40 mls/hr IV .Q24H [facility] Last Admin: 07/04/18 03:58 Dose: 40 mls/hr Levothyroxine Sodium (Synthroid) 25 mcg PO ACB [facility] Last Admin: 07/04/18 09:35 Dose: 25 mcg Losartan Potassium (Cozaar) 25 mg PO DAILY [facility] Last Admin: 07/04/18 09:34 Dose: 25 mg Metoprolol Tartrate (Lopressor) 50 mg PO BID [facility] Last Admin: 07/04/18 19:28 Dose: 50 mg Morphine Sulfate (Morphine) 1 mg IVP Q6 PRN PRN Reason: Pain, moderate (4-7) Last Admin: 07/04/18 15:46 Dose: 1 mg Nystatin (Nystop Topical Powder) 0 gm TOP BID [facility] Last Admin: 07/04/18 19:22 Dose: 1 appl Ondansetron HCl (Zofran Inj) 4 mg IVP Q4H PRN PRN Reason: Nausea/Vomiting Potassium Chloride (K-Dur 20 Meq Er Tab) 20 meq PO BID [facility] Last Admin: 07/04/18 19:16 Dose: 20 meq Torsemide (Demadex) 5 mg PO DAILY [facility] Vancomycin HCl (Vancocin 25 Mg/Ml (Oral Use)) 250 mg PO QID [facility]; Protocol Last Admin: 07/04/18 19:21 Dose: 250 mg - Labs Labs: 07/04/18 06:30 07/04/18 06:30 PT 15.2 SECONDS (9.4-12.5) H 07/01/18 18:50 INR 1.33 07/01/18 18:50 APTT 28.3 Seconds (25.1-36.5) 07/01/18 18:50 - Constitutional Appears: Non-toxic, No Acute Distress - Eye Exam Eye Exam: Normal appearance - Respiratory Exam Respiratory Exam: Clear to Ausculation Bilateral. absent: Respiratory Distress - Cardiovascular Exam Cardiovascular Exam: RRR, +S1, +S2 - GI/Abdominal Exam GI & Abdominal Exam: Soft. absent: Distended - Extremities Exam Additional comments: minimal leg edema; - Neurological Exam Neurological Exam: Alert, Awake - Psychiatric Exam Psychiatric exam: Normal Mood. absent: Agitated - Skin Skin Exam: Warm. absent: Cyanosis Assessment and Plan (1) TROY (acute kidney injury) Assessment & Plan: Resolved; likely pre-renal etiology; nevertheless, will recommend to keep on small dose of diuretics and titrate upward as needed given his pulmonary htn/RV dysfunction; need to monitor suprapubic catheter regularly to ensure flow is maintained (still with thick purulent material in tubing); -starting torsemide 5 mg daily; -continue K replenishment with goal of keeping level > 4 (given afib); Status: Acute (2) Hypertension Assessment & Plan: BP controlled this morning; continue metoprolol 50 mg bid and losartan 25 mg d aily (was on 100 mg previously so has room to increase as needed); Status: Acute (3) Hypokalemia Status: Acute (4) Pulmonary HTN Status: Chronic (5) CKD (chronic kidney disease) stage 3, GFR 30-59 ml/min Status: Chronic (6) UTI (urinary tract infection) Status: Acute
[2018-07-04] MEDS ORDERED: DiphenhydrAMINE 50 mg/ml Inj IVP STA (22:16)
[2018-07-04 23:14] VITALS: RESP 20
[2018-07-05] MEDS: Morphine 2 mg/ml ISec IVP PRN ×2 (00:25→22:46)
[2018-07-05 07:52] LABS: BASO # 0.01 K/mm3 (0.0-2.0); BASO % 0.2 % (0.0-3.0); EOS # 0.2 (0.0-0.7); EOS % 3.5 % (1.5-5.0); GRAN # 4.05 (1.4-6.5); GRAN % 64.9 % (50.0-68.0); HEMOGLOBIN 11.6 g/dL (14.0-18.0); LYMPH # 1.4 (1.2-3.4); LYMPH % 22.3 % (22.0-35.0); MEAN CELL VOLUME 93.5 fl (80.0-105.0); MEAN CORPUSCULAR HEMOGLOBIN 30.4 pg (25.0-35.0); MEAN CORPUSCULAR HGB CONC 32.5 g/dl (31.0-37.0); MEAN PLATELET VOLUME 9.6 fl (7.0-11.0); MONO # 0.6 (0.1-0.6); MONO % 9.1 % (1.0-6.0); RBC 3.82 10^6/uL (3.5-6.1); RED CELL DISTRIBUTION WIDTH 14.1 % (11.5-14.5); WHITE BLOOD COUNT 6.2 10^3/uL (4.5-11.0)
[2018-07-05 08:46] LABS: ALBUMIN 2.9 g/dL (3.0-4.8); BILIRUBIN,DIRECT 0.1 mg/dL (0.0-0.4); CALCIUM 8.6 mg/dL (8.4-10.5)
[2018-07-05] MEDS: Vancomycin 25 MG/ML PO SCH ×4 (10:00→22:40)
[2018-07-05] MEDS: Levothyroxine 25 MCG TAB PO SCH (11:39)
[2018-07-05] MEDS: Cholecalciferol 1,000 INTLU TAB PO SCH (11:39)
[2018-07-05] MEDS: Potassium Chloride 20 mEq ER Tab PO SCH ×2 (11:40→19:40)
[2018-07-05] MEDS: Divalproex 125 mg EC Sprinkle Cap PO SCH ×2 (11:43→17:49)
--- NOTE | 2018-07-05 11:43 | PN ---
DATE: 07/05/2018 SUBJECTIVE: The patient is in bed, in no acute distress, nontoxic. PHYSICAL EXAMINATION: VITAL SIGNS: On exam, temperature is 98, blood pressure is 181/60, respiratory rate of 20. HEENT: Examination of HEENT is unremarkable. NECK: Supple. LUNGS: Have decreased breath sounds. HEART: Normal S1, S2. ABDOMEN: Soft. LABORATORY DATA: Laboratory examination reveals a white count of 6.1, hemoglobin of 11, platelets of 140. Chemistries are noted. Urinalysis is noted. Toxicology is reviewed. Immunology is noted. RPR is negative. Microbiology reveals the blood cultures are negative. Stool for C. diff antigen and toxin are both positive. The patient is currently on p.o. vancomycin. ASSESSMENT AND PLAN: A 63-year-old male with cerebrovascular accident, suprapubic catheter, congestive heart disease, low ejection fraction of 25%, chronic obstructive lung disease, chronic lymphedema, atrial fibrillation, morbid obesity with pseudomembranous colitis. Would complete p.o. vancomycin x21 days. We will follow with you. Minh Padilla MD
--- NOTE | 2018-07-05 14:09 | PN ---
DATE: 07/05/2018 SUBJECTIVE: The patient is seen lying in the bed in room 563, bed 1. The patient was seen and examined with the patient's PCP and the patient's nurse, Paige garcia. The patient initially when the patient was observed was calm and lying in the bed, but when I walked into the room, the patient started screaming and yelling and attempted to swing fist at me, but the patient was cautioned and was advised not to swing fist and the patient was advised not to scream and yell. The patient's overnight nurse's notes were reviewed. The patient was found to be agitated, was found to be refusing medication as mentioned in my previous notes for the last 2 days when I have seen and examined the patient and was found by me and witnessed by me and the medical lab technician. The patient was spitting out all his medication which were given to him by the patient's nurse. As per the nurse's notes, overnight the patient was found to have episodes of agitation and yelling and screaming. The patient was seen lying in the bed. PHYSICAL EXAMINATION: VITAL SIGNS: T-max 97.4, pulse 94, blood pressure 160/98, respirations 20, O2 sat 97%. HEENT: Head examination normocephalic, atraumatic. HEENT examination shows pinkish pale conjunctivae. Anicteric sclerae. No oropharyngeal lesion. No neck rigidity. CHEST: Kyphosis. LUNGS: Shows no audible rales, crackles, wheezing. CARDIOVASCULAR: S1, S2. Irregular rhythm. ABDOMEN: Morbidly obese. Positive healed surgical scar of gastric bypass. Positive suprapubic cystostomy. No palpable hepatosplenomegaly noted. GENITALIA: Male. RECTAL: Deferred. EXTREMITY: Shows chronic skin changes of the lymphedema of the lower extremity. MUSCULOSKELETAL: Shows elevated body mass index as per the BMI of the [facility]. NEUROLOGICAL: The patient is alert, awake, responsive, agitated, yelling and attempts to swing his arms and fist toward the healthcare provider. DIAGNOSTICS: On 07/05/2018, WBC 6.2, hemoglobin and hematocrit 11.6 and 35.7, platelets 140. Sodium 141, potassium 4.2, chloride 109, CO2 of 28, BUN is 17, creatinine 1.5, glucose 90, calcium 8.6, phosphorus 2.7, magnesium 1.9, albumin is 2.9. Serum protein electrophoresis is negative. Serum immunofixation is negative. Immune electrophoresis is negative. The patient was seen by Psychiatry, Infectious Disease, Neurology. Their recommendations were reviewed. IMPRESSION AND PLAN: 1. Delirium versus possible vascular dementia. 2. Behavioral disorder, probably secondary to cerebral infarct. 3. Extremely poor compliance and noncompliance with history of longstanding noncompliance and poor compliance. 4. Gait dysfunction. 5. Morbid obesity. 6. History of cerebral infarct with right-sided residual hemiparesis and weakness. 7. Expressive aphasia, dysarthria, apraxia. 8. Extremely poor compliance with refusing to take medications, refusing to do physical therapy, refusing to be out of bed to chair. 9. Normocytic anemia. 10. Anticoagulation requiring atrial fibrillation. 11. Morbid obesity, status post gastric bypass surgery. 12. Neurogenic bladder and voiding dysfunction with status post suprapubic cystostomy placement. 13. Mild hypoalbuminemia. 14. Status post acute kidney injury. 15. Congestive heart failure. 16. Pulmonary hypertension. 17. Bilateral lower extremity lymphedema and venous stasis of the lower extremity. 18. Hyperlipidemia. 19. Hypertension. 20. Hypothyroidism. 21. Voiding dysfunction. Plan at this time, I have attempted to call the patient's who is the official listed next of kin via the hospital telephone in the presence of the patient's nurse and one other nurse who were present as a witness that I have called the patient's multiple times at the listed home number and cell number. After 4-5 attempts, I was able to get the voice mail on the patient's cell number with area code [phone] number and I have left extensive and long message about the patient's condition, diagnoses, updated test results and recommendation by all the physicians involved in the care of the patient and also advised the patient's to contact Procurement Engineer and Case Management regarding discharge option. I have explained in very simple layman's language that the patient is cleared by all subspecialty involved with the care of the patient for discharge and the family needs to work with the Procurement Engineer, Case Management with the patient's discharge options. The patient has been ordered to be discharged to subacute rehab if accepted, otherwise the patient can be discharged home with visiting nurse, home health aide, home PT. The patient's family and the has also been advised that the family needs to talk to the patient about his behavioral issue and they need to advise the patient to be more cooperative and more compliant. The patient's MAR from today was reviewed. The patient is to continue on medications. As per the MAR, the patient's IV antibiotic has been stopped. IV fluid has been discontinued. The patient's diarrhea has been completely resolved as per the patient's PCP and the nurse. Dictated and electronically signed, not read. Rashad Brown MD
--- NOTE | 2018-07-05 14:11 | PN ---
DATE: 07/04/2018 The patient is seen lying in the bed in Room 563, Bed 1. HISTORY OF PRESENT ILLNESS: The patient is alert, awake, responsive. The patient was seen with the patient's nurse who has been attempting to give the patient's medications in applesauce, but the patient was spitting out the tablets at the bedside. The patient was seen and examined with the forensic medical examiner, Dr. Ritchie. The patient's nurse is at bedside. The patient has also attempted to swing his fist at me, has yelled and screamed at me while I am at the bedside and the patient has also spitted out all the medications and the tablets, which were being given to the patient by the patient's nurse. The patient was advised to cooperate and take all the medications, but the patient does not seem to like that recommendation. PHYSICAL EXAMINATION: The patient's appears to be agitated and upset and started screaming. Vital signs in the last part of the 24 hours, T-max 97.6, pulse 75, blood pressure 135/76, respirations 18, O2 sat 98%. The patient is seen lying in the bed. The patient does not appear to be in any distress, but the patient is screaming and yelling and swinging his arms and fist at the physician and at the care provider. Head examination normocephalic, atraumatic. HEENT examination shows pinkish pale conjunctivae. Anicteric sclerae. No oropharyngeal lesion. No neck rigidity. Chest examination shows kyphosis. Lung examination shows no rales, crackles or wheezing. Questionable decreased breath sounds at the bases. Cardiovascular examination is S1, S2, irregular rhythm. Abdomen is soft, obese. Positive surgical scar of the gastric bypass. Positive suprapubic cystostomy. Genitalia: Male. Extremities show chronic skin changes of the lower extremity secondary to lymphedema. The patient does have some slight right-sided weakness, but the patient is able to move upper and lower extremities without assistance. Musculoskeletal examination shows an elevated body mass index. Gait examination could not be tested. The patient's physical therapy evaluation was noted. The patient was seen by the physical therapist. The patient refused physical therapy yesterday, which has been noted in the patient's physical therapy evaluation notes. DIAGNOSTICS: WBC 5.6, hemoglobin/hematocrit 11.7 and 35.8, platelets 139. Sodium 141, potassium 4.0, chloride 108, CO2 of 28, BUN 18, creatinine is down to 1.5, glucose 92, calcium 8.6, phosphorus 3.1, magnesium 2.2. IMPRESSION: 1. Severe behavioral disorder. 2. Agitated and combative behavior. 3. Delirium. 4. Vascular dementia. 5. Severe cerebral cortical atrophy and chronic microvascular ischemic disease of the brain on MRI of the brain. 6. Gait dysfunction. 7. Deconditioning. 8. Status post acute kidney injury. 9. Anticoagulation-dependent atrial fibrillation. 10. History of cerebral infarct with right-sided residual hemiparesis and weakness. 11. Pseudomembranous colitis with Clostridium difficile associated diarrhea (resolving). 12. Hypertension. 13. Morbid obesity, status post gastric bypass surgery. 14. Voiding dysfunction with neurogenic bladder, status post suprapubic cystostomy placement. 15. Gait dysfunction. 16. Deconditioning. 17. Uncooperative behavior. 18. History of longstanding poor compliance and noncompliance. 19. Atrial fibrillation. 20. Hyperlipidemia. 21. History of chronic constipation. 22. 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 23. History of bilateral lower extremity lymphedema and venous stasis. PLAN: At this time, the patient finally underwent MRI of the brain after the patient was uncooperative for last 2 days and MRI results were reviewed. The patient's was contacted and updated about the patient's condition. The patient's has been advised during this hospitalization and previous hospitalization and even the patient's was updated about the patient's condition in the last 24-48 hours. The patient's was explained about all the diagnostic test results and recommendation by all the physicians involved in the care of the patient and I have specifically advised the patient's to work in collaboration with the social service liaison case management for the patient's discharge planning options. The patient has been seen by Neurology, Psychiatry, Nephrology, Infectious Disease. The patient's IV antibiotics have been stopped. The patient's case was discussed with Psychiatry. No further recommendations or inpatient psychiatric treatment was advised. The patient was evaluated by Neurology, was recommended to continue present management. With the patient's cooperation in participation of his care, was advised, which has been explained to the patient's and the patient at length. At present, the patient is otherwise medically stable for discharge from the hospital. The patient's case is referred to Forestry Worker for discharge planning. Rashad Brown MD [facility]
[2018-07-05] MEDS: Nystatin 100,000 Units/gm Topical Pow(15 gm) TOP SCH (17:51)
--- NOTE | 2018-07-05 23:44 | CP.PCM.PN ---
Subjective - Date & Time of Evaluation Date of Evaluation: 07/05/18 Time of Evaluation: 13:00 - Subjective Subjective: Patient again uncooperative with nursing staff, spitting out food, consuming less than 50% of diet; Objective - Vital Signs/Intake and Output Vital Signs (last 24 hours): Temp Pulse Resp BP Pulse Ox 97.2 F L 69 20 152/97 H 96 07/05/18 14:00 07/05/18 14:00 07/05/18 14:00 07/05/18 14:00 07/05/18 14:00 - Medications Medications: Current Medications Acetaminophen (Tylenol 325mg Tab) 650 mg PO Q6 PRN PRN Reason: TEMP>=99.5F Last Admin: 07/05/18 17:50 Dose: 650 mg Acetaminophen (Tylenol 650 Mg Supp) 650 mg RC Q6H PRN PRN Reason: TEMP>=99.5F Albuterol/Ipratropium (Duoneb 3 Mg/0.5 Mg (3 Ml) Ud) 3 ml IH Q2H PRN PRN Reason: Shortness of Breath Alprazolam (Xanax) 0.25 mg PO HS [facility]; Protocol Stop: 07/08/18 22:01 Last Admin: 07/05/18 22:40 Dose: 0.25 mg Alprazolam (Xanax) 0.25 mg PO BID [facility]; Protocol Stop: 07/11/18 18:01 Last Admin: 07/05/18 17:50 Dose: 0.25 mg Apixaban (Eliquis) 2.5 mg PO BID [facility]; Protocol Last Admin: 07/05/18 19:40 Dose: 2.5 mg Aspirin (Aspirin Chewable) 81 mg PO DAILY [facility] Last Admin: 07/05/18 11:10 Dose: 81 mg Atorvastatin Calcium (Lipitor) 40 mg PO HS [facility] Last Admin: 07/05/18 22:40 Dose: 40 mg Cholecalciferol (Vitamin D) 2,000 intlu PO DAILY [facility] Last Admin: 07/05/18 11:39 Dose: 2,000 intlu Diphenhydramine HCl (Benadryl) 25 mg PO Q8H PRN PRN Reason: Itching / Pruritus Last Admin: 07/05/18 17:50 Dose: 25 mg Divalproex Sodium (Depakote Sprinkles) 500 mg PO BID [facility]; Protocol Last Admin: 07/05/18 17:49 Dose: 500 mg Famotidine (Pepcid) 20 mg PO BID [facility] Last Admin: 07/05/18 17:50 Dose: 20 mg Levothyroxine Sodium (Synthroid) 25 mcg PO ACB [facility] Last Admin: 07/05/18 11:39 Dose: 25 mcg Losartan Potassium (Cozaar) 25 mg PO DAILY [facility] Last Admin: 07/05/18 11:40 Dose: 25 mg Metoprolol Tartrate (Lopressor) 50 mg PO BID [facility] Last Admin: 07/05/18 19:40 Dose: 50 mg Morphine Sulfate (Morphine) 1 mg IVP Q6 PRN PRN Reason: Pain, moderate (4-7) Last Admin: 07/05/18 22:46 Dose: 1 mg Nystatin (Nystop Topical Powder) 0 gm TOP BID [facility] Last Admin: 07/05/18 17:51 Dose: 1 appl Ondansetron HCl (Zofran Inj) 4 mg IVP Q4H PRN PRN Reason: Nausea/Vomiting Potassium Chloride (K-Dur 20 Meq Er Tab) 20 meq PO BID [facility] Last Admin: 07/05/18 19:40 Dose: 20 meq Torsemide (Demadex) 5 mg PO DAILY [facility] Last Admin: 07/05/18 11:40 Dose: 5 mg Vancomycin HCl (Vancocin 25 Mg/Ml (Oral Use)) 250 mg PO QID [facility]; Protocol Last Admin: 07/05/18 22:40 Dose: 250 mg - Labs Labs: 07/05/18 06:45 07/05/18 06:45 PT 15.2 SECONDS (9.4-12.5) H 07/01/18 18:50 INR 1.33 07/01/18 18:50 APTT 28.3 Seconds (25.1-36.5) 07/01/18 18:50 - Constitutional Appears: Non-toxic, No Acute Distress - Eye Exam Eye Exam: Normal appearance - Respiratory Exam Respiratory Exam: Clear to Ausculation Bilateral. absent: Respiratory Distress - Cardiovascular Exam Cardiovascular Exam: RRR, +S1, +S2 - GI/Abdominal Exam GI & Abdominal Exam: Soft. absent: Distended - Extremities Exam Additional comments: minimal leg edema; - Neurological Exam Neurological Exam: Alert, Awake - Psychiatric Exam Psychiatric exam: Agitated - Skin Skin Exam: Warm. absent: Cyanosis Assessment and Plan (1) TROY (acute kidney injury) Assessment & Plan: Resolved; continue to monitor renal function periodically with patient on low dose ARB/diuretic (needed given his pulm htn/RV dysfunction and htn) and irregular PO intake; monitor for suprapubic catheter obstruction (small diameter, can easily obstruct, recommend at least twice daily flushing); Status: Resolved (2) Hypertension Assessment & Plan: Better controlled, continue current meds (metoprolol 50 and losartan 25); can in crease losartan to 50 if needed (was tolerating 100 mg well in [facility]); Status: Acute (3) Hypokalemia Assessment & Plan: On standing KCl supplementation, monitor periodically; goal >=4.0 given afib; Status: Acute (4) Pulmonary HTN Status: Chronic (5) CKD (chronic kidney disease) stage 3, GFR 30-59 ml/min Assessment & Plan: Stable, has some proteinuria, keep on losartan; Status: Chronic (6) UTI (urinary tract infection) Status: Acute
--- NOTE | 2018-07-06 02:52 | CON ---
DATE: 07/05/2018 HISTORY OF PRESENT ILLNESS: The patient is a 63-year-old male with poor prognosis, being seen in the medical floor due to passive agitation in the unit. Psychiatry is following him and offering medications; however, the patient continues to be restless with periodic passive agitation, frustration, screaming, and unpredictability. The patient has been treated with Depakote and Xanax. It was noted that the Depakote was increased; however, review of medications indicate that there was no reason to increase his medication. It is provided that we will increase his dose at this time, and psychiatry will revisit this patient on Saturday to determine if there is any improvement in the patient's impulse control, overall mood, and behavior. Labs and vitals were reviewed. RELEVANT PSYCHIATRIC MEDICATIONS: Include 45 mg t.i.d. and Depakote 250 mg p.o. b.i.d. IMPRESSION: Delirium and dementia, vascular type. PLAN: As noted, Depakote will be increased to 500 mg b.i.d. Continue with Xanax at 0.25 mg b.i.d. and at bedtime. Psychiatry will continue to follow up the patient every other day and monitor his behavior and for any improvement, status post increase of mood stabilizer. Estela Aguilar MD
[2018-07-06 07:48] LABS: BASO # 0.03 K/mm3 (0.0-2.0); BASO % 0.5 % (0.0-3.0); EOS # 0.3 (0.0-0.7); EOS % 4.3 % (1.5-5.0); GRAN # 3.62 (1.4-6.5); GRAN % 62.8 % (50.0-68.0); HEMOGLOBIN 11.8 g/dL (14.0-18.0); LYMPH # 1.5 (1.2-3.4); LYMPH % 26.2 % (22.0-35.0); MEAN CELL VOLUME 94.1 fl (80.0-105.0); MEAN CORPUSCULAR HEMOGLOBIN 30.3 pg (25.0-35.0); MEAN CORPUSCULAR HGB CONC 32.2 g/dl (31.0-37.0); MEAN PLATELET VOLUME 9.2 fl (7.0-11.0); MONO # 0.4 (0.1-0.6); MONO % 6.2 % (1.0-6.0); RBC 3.9 10^6/uL (3.5-6.1); RED CELL DISTRIBUTION WIDTH 14.1 % (11.5-14.5); WHITE BLOOD COUNT 5.8 10^3/uL (4.5-11.0)
[2018-07-06 08:08] LABS: ALBUMIN 3.1 g/dL (3.0-4.8); BILIRUBIN,DIRECT 0.2 mg/dL (0.0-0.4); CALCIUM 8.9 mg/dL (8.4-10.5)
[2018-07-06] MEDS: Nystatin 100,000 Units/gm Topical Pow(15 gm) TOP SCH ×2 (10:00→18:19)
[2018-07-06] MEDS: Cholecalciferol 1,000 INTLU TAB PO SCH (10:28)
[2018-07-06] MEDS: Potassium Chloride 20 mEq ER Tab PO SCH ×2 (10:28→18:17)
[2018-07-06] MEDS: Levothyroxine 25 MCG TAB PO SCH (10:28)
[2018-07-06] MEDS ORDERED: Magnesium Sulfate 2 gm/50 ml 2 GM/50 ML BAG IVPB SCH (10:45)
[2018-07-06] MEDS: Magnesium Sulfate 2 GM in Sodium Chloride 0.9% 100 ML IVPB SCH ×2 (13:10→18:09)
[2018-07-06] MEDS: Vancomycin 25 MG/ML PO SCH ×4 (13:10→22:32)
[2018-07-06] MEDS: Divalproex 125 mg EC Sprinkle Cap PO SCH ×2 (13:11→18:17)
[2018-07-06] MEDS: Morphine 2 mg/ml ISec IVP PRN (20:36)
--- NOTE | 2018-07-06 23:03 | PN ---
DATE: 07/06/2018 SUBJECTIVE: The patient is still in room 563, bed 1. Overnight nurse's notes were reviewed. The patient was seen by psychiatrist yesterday. The patient's overnight nurse's notes reviewed that patient continuously screams. The patient was found to be continuously screaming according to the nurses' notes. PHYSICAL EXAMINATION: VITAL SIGNS: T-max 98.4; heart rate 90 to 70; blood pressure 163/96, 152/98; respiration 20; O2 sat 96%. HEENT: Head: Normocephalic, atraumatic. HEENT examination shows pinkish pale conjunctivae. Anicteric sclerae. No oropharyngeal lesion. No neck rigidity. CHEST: Kyphosis. LUNGS: Examination shows questionable decreased breath sound at the bases, left more than the right. CARDIOVASCULAR: No audible rales, crackles or wheezing. CARDIOVASCULAR: S1, S2, irregular rhythm. ABDOMEN: Protuberant, obese. Positive bowel sounds. Positive suprapubic cystostomy. No palpable hepatosplenomegaly noted. GENITALIA: Male. RECTAL: Examination is deferred. EXTREMITIES: Shows chronic skin changes of the lower extremity. Positive slight right-sided residual weakness of the hip. MUSCULOSKELETAL: Examination showed a body mass index of 47. Gait examination could not be tested. DIAGNOSTICS: 07/06, WBC 5.8, hemoglobin/hematocrit 11.8/37, platelets 146. Sodium 142, potassium 4.1, chloride 107, CO2 29, anion gap 10, BUN 15, creatinine 1.6, GFR 53, glucose 90, calcium 8.9, phosphorus 3.3, magnesium 1.6, total bili 1.6. LFTs are normal. Stool; leukocytes negative. Depakote level 26. Serum protein electrophoresis; immunoelectrophoresis; serum immunofixation negative. RPR negative. Blood cultures; no growth. Wound cultures; no growth. IMPRESSION AND PLAN: 1. Persistent behavioral disorder with continuous and intermittent screaming and yelling and agitation. 2. Vascular type dementia and delirium. 3. Status post acute kidney injury (resolved). 4. Hypertension. 5. Hypokalemia. 6. Hypomagnesemia. 7. Chronic kidney disease stage III. 8. Anticoagulation requiring atrial fibrillation. 9. Mild normocytic anemia. 10. Granulocytosis. 11. History of hypothyroidism. 12. History of cardiomyopathy. 13. Longstanding history of poor compliance and noncompliance. 14. Gait dysfunction. 15. Proteinuria, microscopic hematuria, pyuria, bacteriuria. 16. Clostridium difficile associated diarrhea and pseudomembranous colitis. 17. Deconditioning. 18. Morbid obesity. 19. Voiding dysfunction and neurogenic bladder with status post suprapubic cystostomy. 20. Anticoagulation requiring atrial fibrillation. 21. Hyperlipidemia. 22. Hypothyroidism. 23. Hypovitaminosis D. 24. Agitation and combative behavior. 25. Vascular dementia with delirium. PLAN: At this time, the patient as mentioned yesterday in my note that I have attempted to contact the patient's who is official reported next of kin and the personnel technician I have tried multiple times yesterday and finally I was able to leave a message on voice mail of the patient's , explaining all the details of the patient's medical condition, diagnostic test results and recommendation by all the physician involved the care of the patient. In addition, I have also reviewed the Skilled Nursing Professional note and I have advised the patient's to contact Skilled Nursing Professional regarding discharge planning options and to cooperate with the Skilled Nursing Professional with the discharge planning options for the patient as the patient has been medically stabilized and cleared by all subspecialty. The patient's current medications, aspirin 81 mg daily, Benadryl 25 mg p.o. every 8 p.r.n., Cozaar 50 mg daily, Demadex 5 mg daily, Depakote 500 mg twice a day, DuoNeb nebulizer every 2 hours p.r.n., Eliquis 2.5 mg twice a day, K-Dur 20 mEq twice a day, Lipitor 40 mg daily, Lopressor 50 mg twice a day, morphine 1 mg IV every 6 p.r.n., nystatin powder to affected area twice a day, Synthroid 25 mcg daily, Tylenol 650 mg p.o./suppository every 6 p.r.n., vancomycin 250 mg four times a day, vitamin D3 2000 International Unit daily, Xanax 0.25 mg at bedtime, Xanax 0.25 mg b.i.d., Zofran 4 mg IV every 4 hours p.r.n. The patient has been ordered out of bed, physical therapy, occupational therapy has all been ordered. In addition, the patient was seen by Speech Therapy. The patient has been uncooperative and refused and shouting at Speech Therapy which was noted in the notes. Dictated and electronically signed, not read. Rashad Brown MD
[2018-07-07] MEDS ORDERED: Magnesium Sulfate 2 gm/50 ml 2 GM/50 ML BAG IVPB ONE (06:54)
--- NOTE | 2018-07-07 08:37 | PN ---
DATE: 07/06/2018 SUBJECTIVE: The patient is in bed, in no acute distress, nontoxic. PHYSICAL EXAMINATION: VITAL SIGNS: On exam, temperature is 97, blood pressure is 160/90, respiratory rate 20. HEENT: Examination of HEENT is unremarkable. NECK: Supple. LUNGS: Have decreased breath sounds. HEART: Normal S1, S2. ABDOMEN: Soft. LABORATORY DATA: Laboratory examination, stool C. diff is positive antigen and toxin. Review of orders reveals the patient is on p.o. vancomycin. ASSESSMENT AND PLAN: A 63-year-old male with cerebrovascular accident, suprapubic catheter, congestive heart failure, low ejection fraction of 25%, chronic obstructive lung disease, chronic lymphedema, atrial fibrillation, morbid obesity, pseudomembranous colitis and complete 21 days of p.o. vancomycin. Minh Padilla MD
--- NOTE | 2018-07-07 09:39 | PN ---
DATE: 07/07/2018 SUBJECTIVE: The patient is in bed, in no acute distress, nontoxic. PHYSICAL EXAMINATION: VITAL SIGNS: On exam, temperature is 98, blood pressure is 160/90, respiratory rate of 20. HEENT: Examination of HEENT is unremarkable. NECK: Supple. LUNGS: Have decreased breath sounds. HEART: Normal S1 and S2. ABDOMEN: Soft. LABORATORY DATA: Laboratory examination reveals a BUN of 15 and creatinine is 1.6. The microbiology is noted. ASSESSMENT AND PLAN: A 63-year-old male with cerebrovascular accident, suprapubic catheter, congestive heart failure, low ejection fraction of 25%, chronic obstructive lung disease, chronic lymphedema, atrial fibrillation, morbid obesity, pseudomembranous colitis. Would complete 21 days of p.o. vancomycin. Review of orders confirms the patient to be on p.o. vancomycin. Minh Padilla MD
[2018-07-07] MEDS: Divalproex 125 mg EC Sprinkle Cap PO SCH ×2 (09:48→17:13)
[2018-07-07] MEDS: Levothyroxine 25 MCG TAB PO SCH (09:48)
[2018-07-07] MEDS: Cholecalciferol 1,000 INTLU TAB PO SCH (09:49)
[2018-07-07] MEDS: Potassium Chloride 20 mEq ER Tab PO SCH ×2 (09:57→17:14)
[2018-07-07] MEDS: Nystatin 100,000 Units/gm Topical Pow(15 gm) TOP SCH ×2 (09:59→18:38)
--- NOTE | 2018-07-07 10:23 | CP.PCM.PN ---
Subjective - Date & Time of Evaluation Date of Evaluation: 07/07/18 Time of Evaluation: 10:15 - Subjective Subjective: Nephrology progress note - Kelly Alanis PGY3 Patient seen and examined at bedside this morning. No acute overnight events or new complaints reported. Patient irritable and 12point ROS limited. Objective - Vital Signs/Intake and Output Vital Signs (last 24 hours): Temp Pulse Resp BP Pulse Ox 98.4 F 74 20 145/80 96 07/06/18 14:00 07/07/18 09:57 07/06/18 14:00 07/07/18 09:57 07/06/18 14:00 Intake and Output: 07/07/18 07/07/18 06:59 18:59 Intake Total 180 Output Total 500 Balance -320 - Medications Medications: Current Medications Acetaminophen (Tylenol 325mg Tab) 650 mg PO Q6 PRN PRN Reason: TEMP>=99.5F Last Admin: 07/06/18 18:17 Dose: 650 mg Acetaminophen (Tylenol 650 Mg Supp) 650 mg RC Q6H PRN PRN Reason: TEMP>=99.5F Albuterol/Ipratropium (Duoneb 3 Mg/0.5 Mg (3 Ml) Ud) 3 ml IH Q2H PRN PRN Reason: Shortness of Breath Alprazolam (Xanax) 0.25 mg PO HS [facility]ACH[facility]; Protocol Stop: 07/08/18 22:01 Last Admin: 07/06/18 22:29 Dose: 0.25 mg Alprazolam (Xanax) 0.25 mg PO BID [facility]; Protocol Stop: 07/11/18 18:01 Last Admin: 07/07/18 09:47 Dose: 0.25 mg Apixaban (Eliquis) 2.5 mg PO BID [facility]; Protocol Last Admin: 07/07/18 09:56 Dose: 2.5 mg Aspirin (Aspirin Chewable) 81 mg PO DAILY [facility] Last Admin: 07/07/18 09:57 Dose: 81 mg Atorvastatin Calcium (Lipitor) 40 mg PO HS [facility] Last Admin: 07/06/18 22:29 Dose: 40 mg Cholecalciferol (Vitamin D) 2,000 intlu PO DAILY [facility] Last Admin: 07/07/18 09:49 Dose: 2,000 intlu Diphenhydramine HCl (Benadryl) 25 mg PO Q8H PRN PRN Reason: Itching / Pruritus Last Admin: 07/06/18 20:20 Dose: 25 mg Divalproex Sodium (Depakote Sprinkles) 500 mg PO BID [facility]; Protocol Last Admin: 07/07/18 09:48 Dose: 500 mg Famotidine (Pepcid) 20 mg PO BID [facility] Last Admin: 07/07/18 09:56 Dose: 20 mg Levothyroxine Sodium (Synthroid) 25 mcg PO ACB [facility] Last Admin: 07/07/18 09:48 Dose: 25 mcg Losartan Potassium (Cozaar) 50 mg PO DAILY [facility] Last Admin: 07/07/18 09:49 Dose: 50 mg Metoprolol Tartrate (Lopressor) 50 mg PO BID [facility] Last Admin: 07/07/18 09:57 Dose: 50 mg Morphine Sulfate (Morphine) 1 mg IVP Q6 PRN PRN Reason: Pain, moderate (4-7) Last Admin: 07/06/18 20:36 Dose: 1 mg Nystatin (Nystop Topical Powder) 0 gm TOP BID [facility] Last Admin: 07/07/18 09:59 Dose: 1 appl Ondansetron HCl (Zofran Inj) 4 mg IVP Q4H PRN PRN Reason: Nausea/Vomiting Potassium Chloride (K-Dur 20 Meq Er Tab) 20 meq PO BID [facility] Last Admin: 07/07/18 09:57 Dose: 20 meq Torsemide (Demadex) 5 mg PO DAILY [facility] Last Admin: 07/07/18 09:57 Dose: 5 mg Vancomycin HCl (Vancocin 25 Mg/Ml (Oral Use)) 250 mg PO QID [facility]; Protocol Last Admin: 07/06/18 22:32 Dose: 250 mg - Labs Labs: 07/06/18 07:15 07/06/18 07:15 PT 15.2 SECONDS (9.4-12.5) H 07/01/18 18:50 INR 1.33 07/01/18 18:50 APTT 28.3 Seconds (25.1-36.5) 07/01/18 18:50 - Constitutional Appears: No Acute Distress - Head Exam Head Exam: ATRAUMATIC, NORMAL INSPECTION, NORMOCEPHALIC - Eye Exam Eye Exam: EOMI, PERRL - ENT Exam ENT Exam: Mucous Membranes Moist - Neck Exam Neck Exam: absent: Lymphadenopathy, Tenderness, Thyromegaly - Respiratory Exam Respiratory Exam: Decreased Breath Sounds. absent: Rales, Rhonchi, Wheezes - Cardiovascular Exam Cardiovascular Exam: Irregular Rhythm, +S1, +S2. absent: Gallop, Rubs - GI/Abdominal Exam GI & Abdominal Exam: Soft. absent: Distended, Firm, Guarding, Rigid, Tender ness, Rebound - Extremities Exam Extremities Exam: Pedal Edema - Neurological Exam Neurological Exam: Alert, Awake - Psychiatric Exam Psychiatric exam: Normal Affect, Normal Mood - Skin Skin Exam: Dry, Intact, Warm Additional comments: bilateral lower extremity venous stasis Assessment and Plan - Assessment and Plan (Free Text) Plan: 63yo male with history of systolic CHF with EF of 25%, afib on eliquis, CKD, pulmonary HTN, neurogenic bladder with chronic suprapubic catheter [place] [facility] [place] of [place]/[facility] at [facility]. Nephrology consulted for evaluation of TROY on CKD 1. TROY on CKD stage 3 2. Hypertension 3. C-diff colitis 4. Pulmonary HTN, chronic 5. UTI 6. chronic systolic CHF 7. hx of hypokalemia -acute kidney injury now resolved, continue to monitor renal function periodically and continue with ARB/diuretic which are needed given his pulmonary hypertension, RV dysfunction and HTN -monitor for suprapubic catheter obstruction which is of small diameter and can easily obstruct, recommend at least twice daily flushing -Continue metoprolol and losartan for hypertension; can increase losartan to 50 if needed (was tolerating 100 mg well in [facility]) - On standing KCl supplementation, monitor periodically; goal >=4.0 -Continue losartan for management of his CKD with recommendation to continue to follow up as an outpatient for monitoring -Presently on PO Vancomycin per GI and ID recommendations for hx of Cdiff colitis; to complete 21 day course Patient seen and case discussed/reviewed with attending, Dr. Webb
[2018-07-07] MEDS ORDERED: Sodium Chloride 0.9% 250 ML IV SCH (10:45)
[2018-07-07] MEDS: Vancomycin 25 MG/ML PO SCH ×3 (11:33→17:13)
--- NOTE | 2018-07-07 11:40 | CP.PCM.PN ---
Subjective - Date & Time of Evaluation Date of Evaluation: 07/07/18 Time of Evaluation: 11:38 - Subjective Subjective: Podiatry progress note for Dr. Sebastian/ Dr Byers, This is a 63 year old male with PMH of CVA with residual apashia and right sided weakness, pulmonary HTN, systolic CHF with EF of 25%, COPD, HTN, chronic lymphadema, atrial fibrillation on eliquis, morbid obesity, neurogenic bladder, and s/p suprapubic catheter seen at bedside for chronic lymphedema, and stasis ulcers in his legs. Patient is agitated and nonverbal. Denies f/n/v/sob. Objective - Vital Signs/Intake and Output Vital Signs (last 24 hours): Temp Pulse Resp BP Pulse Ox 98.4 F 74 20 145/80 96 07/06/18 14:00 07/07/18 09:57 07/06/18 14:00 07/07/18 09:57 07/06/18 14:00 Intake and Output: 07/07/18 07/07/18 06:59 18:59 Intake Total 180 Output Total 500 Balance -320 - Medications Medications: Current Medications Acetaminophen (Tylenol 325mg Tab) 650 mg PO Q6 PRN PRN Reason: TEMP>=99.5F Last Admin: 07/06/18 18:17 Dose: 650 mg Acetaminophen (Tylenol 650 Mg Supp) 650 mg RC Q6H PRN PRN Reason: TEMP>=99.5F Albuterol/Ipratropium (Duoneb 3 Mg/0.5 Mg (3 Ml) Ud) 3 ml IH Q2H PRN PRN Reason: Shortness of Breath Alprazolam (Xanax) 0.25 mg PO HS [facility]; Protocol Stop: 07/08/18 22:01 Last Admin: 07/06/18 22:29 Dose: 0.25 mg Alprazolam (Xanax) 0.25 mg PO BID [facility]; Protocol Stop: 07/11/18 18:01 Last Admin: 07/07/18 09:47 Dose: 0.25 mg Apixaban (Eliquis) 2.5 mg PO BID [facility]; Protocol Last Admin: 07/07/18 09:56 Dose: 2.5 mg Aspirin (Aspirin Chewable) 81 mg PO DAILY [facility] Last Admin: 07/07/18 09:57 Dose: 81 mg Atorvastatin Calcium (Lipitor) 40 mg PO HS [facility] Last Admin: 07/06/18 22:29 Dose: 40 mg Cholecalciferol (Vitamin D) 2,000 intlu PO DAILY [facility] Last Admin: 07/07/18 09:49 Dose: 2,000 intlu Diphenhydramine HCl (Benadryl) 25 mg PO Q8H PRN PRN Reason: Itching / Pruritus Last Admin: 07/06/18 20:20 Dose: 25 mg Divalproex Sodium (Depakote Sprinkles) 500 mg PO BID [facility]; Protocol Last Admin: 07/07/18 09:48 Dose: 500 mg Famotidine (Pepcid) 20 mg PO BID [facility] Last Admin: 07/07/18 09:56 Dose: 20 mg Levothyroxine Sodium (Synthroid) 25 mcg PO ACB [facility] Last Admin: 07/07/18 09:48 Dose: 25 mcg Losartan Potassium (Cozaar) 50 mg PO DAILY [facility] Last Admin: 07/07/18 09:49 Dose: 50 mg Metoprolol Tartrate (Lopressor) 50 mg PO BID [facility] Last Admin: 07/07/18 09:57 Dose: 50 mg Morphine Sulfate (Morphine) 1 mg IVP Q6 PRN PRN Reason: Pain, moderate (4-7) Last Admin: 07/06/18 20:36 Dose: 1 mg Nystatin (Nystop Topical Powder) 0 gm TOP BID [facility] Last Admin: 07/07/18 09:59 Dose: 1 appl Ondansetron HCl (Zofran Inj) 4 mg IVP Q4H PRN PRN Reason: Nausea/Vomiting Potassium Chloride (K-Dur 20 Meq Er Tab) 20 meq PO BID [facility] Last Admin: 07/07/18 09:57 Dose: 20 meq Torsemide (Demadex) 5 mg PO DAILY [facility] Last Admin: 07/07/18 09:57 Dose: 5 mg Vancomycin HCl (Vancocin 25 Mg/Ml (Oral Use)) 250 mg PO QID [facility]; Protocol Last Admin: 07/06/18 22:32 Dose: 250 mg - Labs Labs: 07/06/18 07:15 07/06/18 07:15 PT 15.2 SECONDS (9.4-12.5) H 07/01/18 18:50 INR 1.33 07/01/18 18:50 APTT 28.3 Seconds (25.1-36.5) 07/01/18 18:50 - Constitutional Appears: Well, Non-toxic - Extremities Exam Additional comments: Vasc: DP/PT pulses 2/4 b/l. Cap refill > 3 seconds to all digits. Skin temperature warm to warm from proximal to distal. +2 edema noted to bilateral lower extremity Neuro: Unable to assess Ortho: Patient able to move digits Derm: Diffuse dermal change, hyperpigmentation and lichenification noted to bilateral extremities, no drainage, no open lesions, multiple scab like lesions noted b/l legs, no erythema, no purulence, no clinical signs of infection, skin is well hydrated - Neurological Exam Neurological Exam: Alert, Normal Gait - Psychiatric Exam Psychiatric exam: Normal Affect Assessment and Plan - Assessment and Plan (Free Text) Assessment: 63 y/o M patient seen and evaluated at the bed side for bilateral lower extremity edema Plan: Patient seen and evaluated at the bedside Chart, labs and vitals reviewed; Afebrile, absent leukocytosis Bilateral lower extremities cleansed with saline and right LE dressed with xeroform, DSD Multipodus boots ordered for bilateral lower extremities and to be worn at all times to prevent heel breakdown Podiatry will follow the patient while in house.
--- NOTE | 2018-07-07 12:51 | CP.PCM.PCO ---
Addendum Addendum: I reviewed recent staff notes and reports on the unit. Patient's behavior continues to be unpredictable despite recent increase of depakote x2 days ago. Patient is unwilling to engage with me durng my visit with him. Though he is clearly awake, he will not open his eyes or look at me when asked. I review his progress and provide information about his circumstances as well as orientation. Requested his cooperation as he recovers. In the meantime, I will start small dose of Seroquel 12.5 mg HS and psychiatry will continue to f/u
[2018-07-07] MEDS: Morphine 2 mg/ml ISec IVP PRN (12:57)
--- NOTE | 2018-07-07 13:33 | PN ---
DATE: 07/04/2018 SUBJECTIVE: See the previously dictated notes. The patient is resting comfortably. Catheter is draining well. PHYSICAL EXAMINATION: The remaining physical exam is unchanged. The suprapubic is in good location. DIAGNOSES: Urinary retention, voiding dysfunction, urinary incontinence, and recurrent "urinary tract infection." PLAN: Periodically, we will change off. Right now, he has a 12 points. We are going to dilate . I think with a little bit of sedation. I know this is risk for his general body health. He will most likely give a difficult time. We will discuss this with his and family and his daughter more. For now, from urology standpoint, it is draining well. We will just leave everything alone. Jae Nance MD
[2018-07-07 14:14] VITALS: TEMP 97.9; O2SAT 94
--- NOTE | 2018-07-07 15:46 | DS ---
HISTORY OF PRESENT ILLNESS: The patient is seen in room 563, bed 1. Overnight nurse's notes were reviewed. The patient was found to be swinging, grabbing, yelling, was attempting to remove his clothes. The patient required IM Haldol and Xanax 0.5. The patient was evaluated by the on-call resident overnight. The patient is seen lying in the room. PHYSICAL EXAMINATION: VITAL SIGNS: T-max 98.4, pulse 74, blood pressure 145/80, respiration 20, O2 sat 96%. GENERAL: The patient is seen lying in the bed. The patient is alert, awake, responsive. At present, the patient is calm. The patient is undergoing a bladder scan because of suprapubic catheter placement. Bladder scan shows 43 mL of urine. Head: Examination normocephalic, atraumatic. HEENT examination shows pinkish pale conjunctivae. Dry oral mucosa. NECK: No neck rigidity. CHEST: Kyphosis. LUNGS: Shows no rales, crackles or wheezing. CARDIOVASCULAR: S1, S2, irregular rhythm. ABDOMEN: Obese. Positive bowel sounds, positive suprapubic cystostomy, positive surgical scar of the gastric bypass. Genitalia: Male. Rectal examination is deferred. EXTREMITIES: Shows chronic skin changes of the lymphedema of the lower extremity. MUSCULOSKELETAL: Examination shows a body mass index of 47. Weight is 290 pounds. The patient's all diagnostics since admission were reviewed. Microbiology results were reviewed. Imaging studies were reviewed. The patient was seen by Infectious Disease.. The patient was seen by Nephrology service. The patient was seen over the weekend by Psychiatry. IMPRESSION AND PLAN: 1. Clostridium difficile associated diarrhea and pseudomembranous colitis (resolving). 2. Altered mental status with behavioral disorder with combative, aggressive behavior. 3. History of longstanding noncompliance. 4. Hypertension. 5. Deconditioning. 6. History of cerebral infarct with residual right-sided weakness (resolved). 7. Mild normocytic anemia. 8. Granulocytosis. 9. Anticoagulation-dependent atrial fibrillation. 10. Hypokalemia. 11. Status post acute kidney injury. 12. Mild hyperbilirubinemia. 13. Hypomagnesemia. 14. History of hypothyroidism. 15. History of hypovitaminosis D. 16. History of hyperlipidemia. 17. Proteinuria, hematuria, pyuria, bacteriuria. 18. Gait dysfunction. 19. History of bilateral lower extremity lymphedema and bilateral lower extremity venous stasis. 20. 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 21. Cholelithiasis. 22. Anterior abdominal wall muscular atrophy. 23. Incidental finding of cholelithiasis. 24. Morbid obesity. 25. Cardiomyopathy. 26. Pulmonary hypertension. PLAN: At this time, according to the patient's nurse, the patient's family finally contacted the floor today after I have made multiple phone calls to the patient's . The patient's family is now in agreement to take the patient home with visiting nurse, Home Health aide and home PT. The patient's discharge planning has been already referred to case management, Dermatology Specialist. At present, the patient's current medications are Ecotrin 81 mg daily, Benadryl 25 mg p.o. every 8 hours p.r.n., Cozaar 50 mg daily, Demadex 5 mg daily, Depakote 500 twice a day, DuoNeb nebulizer every 2 hours p.r.n., Eliquis 2.5 b.i.d., K-Dur 20 mEq twice a day, Lipitor 40 mg at bedtime, Lopressor 50 mg twice a day, morphine 1 mg IV every 6 p.r.n., nystatin powder, Pepcid 20 mg twice a day. The patient is ordered a bolus of 0.9 normal saline 250 mL, Synthroid 25 mcg p.o. daily, Tylenol p.r.n., vancomycin 250 four times a day, vitamin D3 2000 units daily, Xanax 0.25 at bedtime and Xanax 0.25 mg b.i.d., Zofran 4 mg IV every 4 p.r.n. The patient will be discharge home after cleared by Urology. The patient will be discharged home on updated ambulatory orders with new scripts. The patient's diagnosis, test results, recommendation by all the physician involved in the care of the patient has been extensively explained to the patient's during this hospitalization on multiple occasions, which she has acknowledged and understood. At present, the patient's case will be referred to Dermatology Specialist, case management, physical therapist. The patient's discharge medications will be as per the updated ambulatory orders and new scripts. The patient's discharge followup will be with Dr. Brown within [address] Nance within 1 week. The patient's case referred to a discharge planning to visiting nurse, Home Health aide, home physical therapy. The patient has been ordered to be discharged to subacute rehab if accepted or long-term placement if accepted, otherwise the patient will be discharged home with family, visiting nurse, Home Health aide, home PT, with a discharge followup with Dr. Brown and Dr. Nance within 1 week. The patient's discharge medications are Tylenol 650 mg p.o. suppository every 6 p.r.n., Xanax 0.25 mg b.i.d. p.r.n. and Xanax 0.25 mg at bedtime, the patient is on Lac-Hydrin lotion to affected area of the legs and feet twice a day, Eliquis 2.5 mg twice a day, aspirin 81 mg p.o. daily, Ecotrin 81 mg p.o. daily, Lipitor 40 mg at bedtime, the patient is on vitamin D3 2000 international units daily, Benadryl 25 mg every 8 p.r.n. The patient is on Depakote 500 mg twice a day; Pepcid 20 mg twice a day; lactobacillus Bacid 1 capsule 3 times a day, total 10 tablets; Synthroid 25 mcg p.o. daily; Cozaar 50 mg daily; Lopressor 50 mg twice a day. Nystatin ordered to the affected area twice a day, Protonix 40 mg daily, Pepcid 20 mg twice a day, K-Dur 20 mEq twice a day, Demadex 5 mg daily, vancomycin p.o. 250 mg 4 times a day. Time spent in the entire discharge process more than 45 minutes. Dictated and electronically signed, not read. Rashad Brown MD
--- NOTE | 2018-07-07 16:55 | PCM.URO ---
Urology Progress Note - Objective Lab Studies: Reviewed (ok for discharge home from [facility]) Lab Results Last 24 Hours: Laboratory Results - last 24 hr 07/07/18 13:30 Valproic Acid 32 L Intake & Output: Intake & Output 07/06/18 07/07/18 07/07/18 18:59 06:59 18:59 Intake Total 180 Output Total 500 Balance -320 Intake: Oral 180 Output: Urine 500 Urine, Voided 500 Vital Signs: Vital Signs - 24 hr 07/07/18 07/07/18 07/07/18 09:49 09:57 14:00 Temperature 97.9 F Pulse Rate 76 74 84 Respiratory 20 Rate Blood Pressure 145/80 145/80 153/109 H O2 Sat by Pulse 94 L Oximetry
[2018-07-07 17:16] VITALS: BP 140/80; PULSE 80
--- NOTE | 2018-07-07 19:15 | CON ---
DATE: 07/03/2018 HISTORY OF PRESENT ILLNESS: I was called regarding the patient who is admitted to the hospital, Mr. Ismael Damon. I was called to evaluate the indwelling suprapubic catheter. Mr. Damon is a very pleasant gentleman. He has multiple medical issues. He had a stroke. He is aphasic. From a neurology standpoint, we were consulted regarding his [place] catheter. The patient is currently on the floor. Resting comfortably in his bed. The suprapubic catheter is in place. See the physical exam below. Urology was consulted for further recommendations. PAST MEDICAL HISTORY AND PAST SURGICAL HISTORY: All listed on chart. PHYSICAL EXAMINATION: GENERAL: No apparent distress. VITAL SIGNS: Within normal limits. ABDOMEN: Overall soft. Suprapubic within good location. The catheter is actually irrigated by me. DIAGNOSES: Voiding dysfunction, urinary retention and hematuria. ASSESSMENT AND PLAN: Leave this suprapubic catheter alone for now, just wound care. Make sure it is safe and clean, but it is irrigating well and we just maintain current care. Thank you for the urology consultation. Jae Nance MD
--- NOTE | 2018-07-08 08:38 | CP.PCM.PCO ---
Physician Communication Note - Physician Communication Note Physician Communication Note: pt was d/c, pt needs to be f/u with psychiatrist in [place] within 72hrs
== END 2018-07-07 21:54 | disposition home or self-care (01) | DRG 371 ==
LOC: ED 16:14 → ERH 19:32 → INTOOBSV 19:32 → ERH 22:23 → 5RNO 23:15 → OBSVTOIN 07-03 08:06
PROVIDERS: ADMIT Internal Medicine; ATTEND Internal Medicine
DX: A04.72 Enterocolitis due to Clostridium difficile, not specified as recurrent (principal); G92 Toxic encephalopathy; Z68.42 Body mass index [BMI] 45.0-49.9, adult; I69.351 Hemiplegia and hemiparesis following cerebral infarction affecting right dominant side; I13.0 Hypertensive heart and chronic kidney disease with heart failure and stage 1 through stage 4 chronic kidney disease, or unspecified chronic kidney disease; I50.22 Chronic systolic (congestive) heart failure; I42.0 Dilated cardiomyopathy; N17.9 Acute kidney failure, unspecified; N39.0 Urinary tract infection, site not specified; F01.51 Vascular dementia, unspecified severity, with behavioral disturbance; F05 Delirium due to known physiological condition; N31.9 Neuromuscular dysfunction of bladder, unspecified; J44.9 Chronic obstructive pulmonary disease, unspecified; I27.20 Pulmonary hypertension, unspecified; E66.01 Morbid (severe) obesity due to excess calories; R45.1 Restlessness and agitation; E87.6 Hypokalemia; E03.9 Hypothyroidism, unspecified; I69.320 Aphasia following cerebral infarction; I48.2 Chronic atrial fibrillation; N18.3 Chronic kidney disease, stage 3 (moderate); R80.9 Proteinuria, unspecified; E83.42 Hypomagnesemia; I87.2 Venous insufficiency (chronic) (peripheral); E55.9 Vitamin D deficiency, unspecified; I08.1 Rheumatic disorders of both mitral and tricuspid valves; K21.9 Gastro-esophageal reflux disease without esophagitis; N40.1 Benign prostatic hyperplasia with lower urinary tract symptoms; R33.8 Other retention of urine; N28.1 Cyst of kidney, acquired; D64.9 Anemia, unspecified; Z91.19 Patient's noncompliance with other medical treatment and regimen; Z79.01 Long term (current) use of anticoagulants; Z78.9 Other specified health status; Z91.14 Patient's other noncompliance with medication regimen; Z98.84 Bariatric surgery status

== ENCOUNTER 2018-07-08 12:59 | Inpatient (IN) | payer MEDICARE ==
[2018-07-08 13:00] VITALS: PULSE 58; BMI 46.7
--- NOTE | 2018-07-08 13:38 | ED PDOC ---
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 Reportedly, noticed wetness on the bed and contacted Dr. Nance for possible catheter leakage and was subsequently referred to the ED for evaluation. Patient denies any somatic complaints Patient denies any fever, chills, nausea, vomiting, diarrhea, abdominal pain, chest pain, shortness of breath, cough, headache, dizziness, neck pain, back pain, or any other complaints. PMD: Dr. Brown Urologist: Dr. Nance Time/Duration: 24 hours Symptom Onset: Gradual Symptom Course: Unchanged Activities at Onset: Light Context: Home Past Medical History - Provider Review Nursing Documentation Reviewed: Yes - Past History Past History: No Previous - Infectious Disease Hx of Infectious Diseases: None - Tetanus Immunization Tetanus Immunization: Unknown - Cardiac Hx Cardiac Disorders: Yes Hx Hypertension: Yes - Pulmonary Hx Chronic Obstructive Pulmonary Disease (COPD): Yes - Neurological HX Cerebrovascular Accident: Yes - HEENT Other/Comment: Aphasia - Renal Hx Renal Disorder: Yes - Endocrine/Metabolic Hx Endocrine Disorders: Yes Hx Hypothyroidism: Yes - Hematological/Oncological Hx Blood Transfusions: No - Integumentary Hx Dermatological Disorder: Yes (CELLULITIS TO LOWER EXTREMITY) - Musculoskeletal/Rheumatological Hx Arthritis: Yes Hx Falls: No Hx Osteoarthritis: Yes - Gastrointestinal Hx Gastroesophageal Reflux: Yes - Genitourinary/Gynecological Hx Genitourinary Disorders: Yes Other/Comment: HX: URINARY RETENTION ->CHACON CATH. - Psychiatric Hx Depression: Yes Hx Substance Use: No - Surgical History Other/Comment: suprapubic cath - Anesthesia Hx Anesthesia Reactions: No Hx Malignant Hyperthermia: No - Suicidal Assessment Feels Threatened In Home Enviroment: No Family/Social History - Physician Review Nursing Documentation Reviewed: Yes Family/Social History: Unknown Family HX Smoking Status: Unknown If Ever Smoked Hx Alcohol Use: No Hx Substance Use: No Hx Substance Use Treatment: No Allergies/Home Meds Allergies/Adverse Reactions: Allergies No Known Allergies Allergy (Verified 06/18/18 11:06) Review of Systems - Physician Review All systems were reviewed & negative as marked: Yes - Review of Systems Constitutional: absent: Fevers Respiratory: absent: SOB, Cough Cardiovascular: absent: Chest Pain Gastrointestinal: absent: Abdominal Pain, Diarrhea, Nausea, Vomiting Genitourinary Male: Other (Suprapubic catheter leaking). absent: Dysuria, H ematuria Musculoskeletal: absent: Back Pain, Neck Pain Neurological: absent: Headache, Dizziness Physical Exam Vital Signs Reviewed: Yes Vital Signs Temp Pulse Resp BP Pulse Ox 07/08/18 13:00 97.7 F 70 18 170/93 H 97 Temperature: Afebrile Blood Pressure: Hypertensive Pulse: Regular Respiratory Rate: Normal Appearance: Positive for: Well-Appearing, Non-Toxic, Comfortable Pain Distress: None Mental Status: Positive for: Alert and Oriented X 3 - Systems Exam Head: Present: Atraumatic, Normocephalic Pupils: Present: PERRL Extroacular Muscles: Present: EOMI Conjunctiva: Present: Normal Neck: Present: Normal Range of Motion Respiratory/Chest: Present: Clear to Auscultation, Good Air Exchange. No: Respiratory Distress, Accessory Muscle Use Cardiovascular: Present: Regular Rate and Rhythm, Normal S1, S2. No: Murmurs Abdomen: No: Tenderness, Distention, Peritoneal Signs Back: Present: Normal Inspection Upper Extremity: Present: Normal Inspection. No: Cyanosis, Edema Lower Extremity: Present: Normal Inspection. No: Edema Neurological: Present: GCS=15, CN II-XII Intact, Speech Normal Skin: Present: Warm, Dry, Normal Color. No: Rashes Psychiatric: Present: Alert, Oriented x 3, Normal Insight, Normal Concentration Medical Decision Making ED Course and Treatment: 07/08/18 13:30 Impression: 63 year old male presents to the Emergency Department complaining of suprapubic catheter leakage. Plan: -- Reassess and disposition Prior Visits: Notes and results from previous visits were reviewed. Progress Notes: 07/08/18 16:[address] karrie cisneros for or [email or web address]. - Scribe Statement The provider has reviewed the documentation as recorded by the Scribe Annmarie Garcias. All medical record entries made by the Scribe were at my direction and personally dictated by me. I have reviewed the chart and agree that the record accurately reflects my personal performance of the history, physical exam, medical decision making, and the department course for this patient. I have also personally directed, reviewed, and agree with the discharge instructions and disposition. Disposition/Present on Arrival - Present on Arrival Any Indicators Present on Arrival: No History of DVT/PE: No History of Uncontrolled Diabetes: No Urinary Catheter: Yes (Supra Pubic Catheter) History Surgical Site Infection Following: Orthopedic Procedures - Disposition Have Diagnosis and Disposition been Completed?: Yes Diagnosis: Suprapubic catheter dysfunction Disposition: HOSPITALIZED Disposition Time: 13:00 Condition: STABLE
[2018-07-08 15:01] LABS: BASO # 0.01 K/mm3 (0.0-2.0); BASO % 0.1 % (0.0-3.0); EOS # 0.2 (0.0-0.7); EOS % 1.5 % (1.5-5.0); GRAN # 8.85 (1.4-6.5); GRAN % 80.6 % (50.0-68.0); LYMPH # 1.4 (1.2-3.4); LYMPH % 12.9 % (22.0-35.0); MEAN CELL VOLUME 93.2 fl (80.0-105.0); MEAN CORPUSCULAR HEMOGLOBIN 31.4 pg (25.0-35.0); MEAN CORPUSCULAR HGB CONC 33.7 g/dl (31.0-37.0); MEAN PLATELET VOLUME 9.4 fl (7.0-11.0); MONO # 0.5 (0.1-0.6); MONO % 4.9 % (1.0-6.0); RBC 4.71 10^6/uL (3.5-6.1); RED CELL DISTRIBUTION WIDTH 14.1 % (11.5-14.5)
[2018-07-08 15:02] LABS: HEMOGLOBIN 14.8 g/dL (14.0-18.0)
[2018-07-08 15:04] LABS: INR 1.44; PARTIAL THROMBOPLASTIN TIME 32.4 Seconds (25.1-36.5); PROTHROMBIN TIME 16.5 SECONDS (9.4-12.5)
[2018-07-08 15:07] LABS: ALBUMIN 3.8 g/dL (3.0-4.8); CALCIUM 9.3 mg/dL (8.4-10.5)
[2018-07-08] MEDS ORDERED: Pantoprazole 40 mg EC Tab PO SCH (17:15)
[2018-07-08] MEDS ORDERED: Potassium Chloride 20 mEq ER Tab PO SCH (18:00)
[2018-07-08] MEDS: Levothyroxine 25 MCG TAB PO SCH (18:17)
[2018-07-08] MEDS: Divalproex 125 mg EC Sprinkle Cap PO SCH (20:55)
[2018-07-08] MEDS: Cholecalciferol 1,000 INTLU TAB PO SCH (20:56)
[2018-07-08] MEDS: Vancomycin 25 MG/ML PO SCH (20:58)
[2018-07-08] MEDS ORDERED: Influenza Vaccine 60 mcg/0.5 mL SYR (4YR UP) IM ONE (21:23)
[2018-07-08] MEDS ORDERED: Pneumococcal 23-Valent Vaccine IM ONE (21:23)
--- NOTE | 2018-07-09 07:02 | CON ---
DATE: 07/08/2018 REQUESTING PHYSICIAN: Jae Nance MD for medical consult. HISTORY OF PRESENT ILLNESS: The patient is a 63-year-old male with history of longstanding chronic noncompliance, who came to the emergency room by the EMS, [facility], was sent by Dr. Nance for suprapubic cystostomy leaking. The patient was just discharged from the hospital yesterday after the patient was cleared by Urology for discharge and the patient was sent back for evaluation of the suprapubic cystostomy. CODE STATUS: Full code. LIVING WILL ADVANCE DIRECTIVE: None. REVIEW OF SYSTEMS: A 13-system review of symptoms was positive for suprapubic catheter leakage. Height is 5 feet 6 inches. Weight is 290. BMI 47. ALLERGIES: NONE. HOME MEDICATIONS: As per the last discharge ambulatory orders, which includes Tylenol p.o. suppository p.r.n., Xanax 0.25 mg b.i.d., Xanax 0.25 mg at bedtime, Lac-Hydrin lotion to both legs, Eliquis 2.5 mg twice a day, Ecotrin 81 mg daily, Lipitor 40 mg daily, vitamin D3 of 2000 international units daily, Benadryl 25 mg every 8 hours, Depakote 500 mg twice a day, Pepcid 20 mg twice a day or Protonix 40 mg daily, Bacid 1 capsule three times a day p.r.n., Synthroid 25 mcg daily, Cozaar 50 mg daily, Lopressor 50 mg twice a day, nystatin powder to the groin area, K-Dur 20 mEq once or twice a day, Seroquel 12.5 mg at bedtime, Demadex 5 mg daily, and vancomycin 250 mg p.o. q.i.d. to complete 21 days of treatment. SOCIAL HISTORY: Positive for alcohol use. Positive for substance abuse. Positive for smoking in the past according to the [employer]. OCCUPATIONAL HISTORY: Disabled male. FAMILY HISTORY: Not available. PAST MEDICAL AND SURGICAL HISTORY: History of cerebral infarct with residual right-sided weakness almost resolved and history of Clostridium difficile associated diarrhea and pseudomembranous colitis (resolving). Altered mental status with behavioral disorder with combative and aggressive behavior, history of hypertension, and history of mild normocytic anemia. Past medical history is also significant for history of anticoagulation. Past medical history significant for history of acute kidney injury, history of mild hyperbilirubinemia, history of hypovitaminosis D, history of bilateral lower extremity lymphedema and venous stasis ulceration, history of proteinuria, hematuria, pyuria, bacteriuria, history of anterior abdominal wall muscular atrophy, history of incidental cholelithiasis, history of cardiomyopathy, and history of pulmonary hypertension. 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; history of voiding dysfunction, status post suprapubic cystostomy placement; history of old right frontal infarct; history of microvascular ischemic disease of the brain; history of morbid obesity; history of anticoagulation; dependent atrial fibrillation; history of cerebrovascular accident with right residual hemiparesis; hypokalemia; hypomagnesemia; history of right ventricular dysfunction and cardiorenal syndrome; history of exacerbation of delirium and dementia; history of dilated cardiomyopathy and systolic congestive heart failure; history of morbid obesity with history of gastric bypass surgery; history of neurogenic bladder with voiding dysfunction, status post suprapubic cystostomy; history of degenerative joint disease of the spine, knees and hips; history of delirium; vascular dementia; history of cerebral cortical atrophy of the brain; history of right-sided cerebral infarct; history of left-sided cerebral infarct with right-sided residual hemiparesis and weakness (resolving); history of uncooperative behavior; history of longstanding noncompliance; history of behavioral disorder probably secondary to cerebral infarct; history of poor compliance, was refusing to take medications; refusing to do physical therapy; refusing to be out of bed; history of mild hypoalbuminemia; history of granulocytosis; history of persistent behavioral disorder with combative behavior; history of agitated and combative behavior; and history of deconditioning. The patient's past medical history is significant for morbid obesity, history of chronic constipation, history of aphasia, history of bilateral chronic venous stasis ulceration, and history of urinary retention. Past medical history is significant for atrial fibrillation, history of congestive heart failure, history of hyperlipidemia, history of hypothyroidism, history of constipation, history of gastroesophageal reflux, history of left knee surgery, history of gait dysfunction, and history of MRSA cellulitis of the lower extremity. Height is 5 feet 6 inches. Weight is 290 pounds. BMI is 47. ALLERGIES: NONE. The patient's last discharge medications as per 06/20/2018. The patient was just recently discharged, a week or two ago Last discharge medications, Tylenol p.o. suppository q. 6 p.r.n., DuoNeb nebulizer every 2 hours p.r.n., Xanax 0.25 mg at bedtime and Xanax 0.25 b.i.d., Lac-Hydrin lotion, Eliquis 2.5 twice a day, Ecotrin 81 daily, Lipitor 40 daily, vitamin D3 2000 international units daily, Benadryl 25 mg p.o. q. 8 p.r.n., Depakote 125 twice a day, Colace 100 mg three times a day, Synthroid 25 mcg daily, Linzess 290 mcg daily, Lopressor 50 mg twice a day. The patient was discharged on Flagyl 500 mg p.o. q. 8, multivitamin 1 tablet daily, Protonix 40 daily, MiraLax 17 g twice a day, K-Dur 20 mEq daily, Flomax 0.4 mg daily. The patient's Cozaar and Lasix were held because of renal insufficiency. CODE STATUS: Full code. LIVING WILL ADVANCE DIRECTIVE: None. SOCIAL HISTORY: Positive for alcohol use. Positive for substance use. Negative for smoking. As per them, all of the above is obtained through the [employer] information. FAMILY HISTORY: Not available. OCCUPATIONAL HISTORY: Disabled. Morbidly obese male. PAST MEDICAL AND SURGICAL HISTORY: History of severe noncompliance, history of acute cerebrovascular accident with history of right hemiparesis, history of anticoagulation dependent atrial fibrillation but the patient has been noncompliant with anticoagulation in the past, history of dilated cardiomyopathy, history of morbid obesity with gastric bypass surgery and weight loss surgery, history of pulmonary hypertension, history of moderate mitral regurgitation, history of bilateral lower extremity lymphedema and history of venous stasis cellulitis and venous stasis, history of moderately reduced right ventricular and left ventricular systolic function, history of moderately dilated left and right atrium, history of mitral regurgitation, history of moderate tricuspid regurgitation, history of severe pulmonary hypertension with right ventricular systolic pressure of 60 mmHg. The patient's past medical history is significant for acute left posterior frontal lobe precentral gyrus acute cortical infarct in 02/2018, history of right hemiparesis, history of bilateral cavernous internal carotid artery stenosis, history of expressive aphasia and dysarthria, history of extremely poor compliance, history of noncompliance, past medical history is significant for hematuria, history of voiding dysfunction, history of multidrug resistant Klebsiella pneumoniae urinary tract infection, removal of the urethral [place] bag, history of cerebrovascular accident with right hemiparesis, expressive aphasia, apraxia, dysarthria, history of laparoscopic gastric esophageal junction gastric banding, history of receptive cognitive deficit, history of expressive language deficit, history of dysarthria, oral verbal apraxia, history of thrombocytopenia, history of chronic kidney disease, history of chronic lymphedema of the lower extremity and bilateral lower extremity venous stasis and history of anticoagulation requiring atrial fibrillation, history of deconditioning, history of super morbid obesity with elevated body mass index, history of voiding dysfunction, history of urinary retention, history of neurogenic bladder with gross hematuria, history of suprapubic cystostomy placement, history of poor compliance, past medical history is significant for history of prostatic hypertrophy, history of prediabetes, history of bilateral lower extremity venous stasis cellulitis, lymphedema, history of cystitis, history of cholelithiasis, history of gallbladder sludge, history of degenerative joint disease of the spine, history of diastolic systolic congestive heart failure, history of positive substance abuse and alcohol use in the past. The patient's past medical history is significant for history of anticoagulation dependent atrial fibrillation, history of anxiety disorder, history of hypovitaminosis D. The patient's past medical history is significant for history of aggressive behavior, history of possible behavioral disorder, history of agitation, history of restlessness behavior and agitated behavior, history of possible mood disorder. The patient's past medical history is significant for poor compliance, history of agitated behavior. History of morbid obesity. The patient's past medical history is also significant for history of atrial fibrillation, congestive heart failure, hyperlipidemia, hypertension, hypothyroidism, gastric bypass, constipation, history of left knee surgery, history of degenerative joint disease, history of gait dysfunction, history of depression, history of alcohol and substance abuse in the past, history of MRSA infection of the lower extremity. The patient was sent to the emergency room. By Dr. Nance's recommendation, the patient is in the emergency room, bed 20. The patient came to the emergency room by ambulance. PHYSICAL EXAMINATION: GENERAL: The patient is in a stretcher #20. The patient was accompanied by the patient's according to the ambulance and the ER notes. VITAL SIGNS: T-max 97.7; heart rate 70, 67, and 72; blood pressure is 170/93, 166/66, and 134/73; respirations 18; and O2 sat 97 to 98%. HEENT: Head examination normocephalic and atraumatic. HEENT examination shows pink conjunctivae. Anicteric sclerae. NECK: No neck rigidity. LUNGS: Shows no audible rales, crackles, or wheezing. CARDIOVASCULAR: S1 and S2, irregular rhythm. Positive systolic murmur left sternal border, right second intercostal space, left second intercostal space. ABDOMEN: Obese. Positive bowel sounds. Positive suprapubic cystostomy, unable to visualize any leakage around the suprapubic cystostomy. GENITALIA: Male. According to the nurses, the patient has been passing urine through the urethra. MUSCULOSKELETAL:: Lower extremity shows positive chronic lymphedematous changes of the lower extremity. Positive right upper and lower extremity weakness. Gait examination is not tested. The patient is alert, awake, responsive, is able to move up, left-sided more strongly than right side. The patient has a slight weakness of the right upper and lower extremity. DIAGNOSTIC DATA: WBC 11.0, hemoglobin/hematocrit 14.8 and 43.9, platelets 173, and granulocytes 81% segs. PT/PTT 16.5 and 32.4. Sodium 143, potassium 4.9, chloride 105, CO2 of 28, anion gap 15, BUN 19, creatinine 1.8, GFR 47, glucose 100, calcium 9.3, and total bili 2.4. LFTs are normal. The patient was seen and evaluated in the emergency room by the ER physician, Dr. Nance was notified of the patient present in the emergency room. According to the emergency room evaluation and the ER physician evaluation, Dr. Nance, is planning to take the patient to the OR tomorrow for evaluation of the malfunction of the suprapubic cystostomy. IMPRESSION: 1. Suprapubic cystostomy malfunction with questionable urinary incontinence from the suprapubic catheter site. 2. Hypertension. 3. Gait dysfunction. 4. Granulocytosis. 5. Chronic kidney disease, stage III. 6. Mild hyperbilirubinemia. 7. Morbid obesity. 8. History of cerebral infarct with residual right-sided weakness (almost resolved). 9. Clostridium difficile associated diarrhea with pseudomembranous colitis. 10. Behavioral disorder with agitation and combativeness. 11. Hypokalemia. 12. Anticoagulation requiring atrial fibrillation. 13. Hypothyroidism. 14. History of constipation. 15. Hypovitaminosis D. 16. Hyperlipidemia. 17. Questionable anxiety disorder. 1. Clostridium difficile associated diarrhea and pseudomembranous colitis (resolving). 2. Altered mental status with behavioral disorder with combative, aggressive behavior. 3. History of longstanding noncompliance. 4. Hypertension. 5. Deconditioning. 6. History of cerebral infarct with residual right-sided weakness (resolved). 7. Mild normocytic anemia. 8. Granulocytosis. 9. Anticoagulation-dependent atrial fibrillation. 10. Hypokalemia. 11. Status post acute kidney injury. 12. Mild hyperbilirubinemia. 13. Hypomagnesemia. 14. History of hypothyroidism. 15. History of hypovitaminosis D. 16. History of hyperlipidemia. 17. Proteinuria, hematuria, pyuria, bacteriuria. 18. Gait dysfunction. 19. History of bilateral lower extremity lymphedema and bilateral lower extremity venous stasis. 20. 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 21. Cholelithiasis. 22. Anterior abdominal wall muscular atrophy. 23. Incidental finding of cholelithiasis. 24. Morbid obesity. 25. Cardiomyopathy. 26. Pulmonary hypertension. 1. Persistent behavioral disorder with continuous and intermittent screaming and yelling and agitation. 2. Vascular type dementia and delirium. 3. Status post acute kidney injury (resolved). 4. Hypertension. 5. Hypokalemia. 6. Hypomagnesemia. 7. Chronic kidney disease stage III. 8. Anticoagulation requiring atrial fibrillation. 9. Mild normocytic anemia. 10. Granulocytosis. 11. History of hypothyroidism. 12. History of cardiomyopathy. 13. Longstanding history of poor compliance and noncompliance. 14. Gait dysfunction. 15. Proteinuria, microscopic hematuria, pyuria, bacteriuria. 16. Clostridium difficile associated diarrhea and pseudomembranous colitis. 17. Deconditioning. 18. Morbid obesity. 19. Voiding dysfunction and neurogenic bladder with status post suprapubic cystostomy. 20. Anticoagulation requiring atrial fibrillation. 21. Hyperlipidemia. 22. Hypothyroidism. 23. Hypovitaminosis D. 24. Agitation and combative behavior. 25. Vascular dementia with delirium. 1. Delirium versus possible vascular dementia. 2. Behavioral disorder, probably secondary to cerebral infarct. 3. Extremely poor compliance and noncompliance with history of longstanding noncompliance and poor compliance. 4. Gait dysfunction. 5. Morbid obesity. 6. History of cerebral infarct with right-sided residual hemiparesis and weakness. 7. Expressive aphasia, dysarthria, apraxia. 8. Extremely poor compliance with refusing to take medications, refusing to do physical therapy, refusing to be out of bed to chair. 9. Normocytic anemia. 10. Anticoagulation requiring atrial fibrillation. 11. Morbid obesity, status post gastric bypass surgery. 12. Neurogenic bladder and voiding dysfunction with status post suprapubic cystostomy placement. 13. Mild hypoalbuminemia. 14. Status post acute kidney injury. 15. Congestive heart failure. 16. Pulmonary hypertension. 17. Bilateral lower extremity lymphedema and venous stasis of the lower extremity. 18. Hyperlipidemia. 19. Hypertension. 20. Hypothyroidism. 21. Voiding dysfunction. 1. Severe behavioral disorder. 2. Agitated and combative behavior. 3. Delirium. 4. Vascular dementia. 5. Severe cerebral cortical atrophy and chronic microvascular ischemic disease of the brain on MRI of the brain. 6. Gait dysfunction. 7. Deconditioning. 8. Status post acute kidney injury. 9. Anticoagulation-dependent atrial fibrillation. 10. History of cerebral infarct with right-sided residual hemiparesis and weakness. 11. Pseudomembranous colitis with Clostridium difficile associated diarrhea (resolving). 12. Hypertension. 13. Morbid obesity, status post gastric bypass surgery. 14. Voiding dysfunction with neurogenic bladder, status post suprapubic cystostomy placement. 15. Gait dysfunction. 16. Deconditioning. 17. Uncooperative behavior. 18. History of longstanding poor compliance and noncompliance. 19. Atrial fibrillation. 20. Hyperlipidemia. 21. History of chronic constipation. 22. 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 23. History of bilateral lower extremity lymphedema and venous stasis. 1. Clostridium difficile associated diarrhea and colitis with Clostridium difficile toxin and antigen positive. 2. Delirium. 3. Vascular dementia. 4. Toxic metabolic encephalopathy. 5. Behavioral disorder. 6. Episodic agitation and noncompliance with medication treatment, etc. 7. Normocytic anemia. 8. Anticoagulation-dependent atrial fibrillation. 9. History of cerebrovascular infarct with right residual hemiparesis. 10. Expressive aphasia, dysarthria and apraxia. 11. Normocytic anemia. 12. Acute kidney injury with underlying chronic kidney disease stage 3 A and B. 13. Normocytic anemia. 14. Hypertension. 15. Atrial fibrillation. 16. Hypokalemia. 17. Hypomagnesemia. 18. Acute exacerbation of delirium and vascular dementia. 19. Right ventricular dysfunction with cardiorenal syndrome. 20. History of dilated cardiomyopathy and systolic congestive heart failure. 21. Gait dysfunction. 22. Bilateral lower extremity venous lymphedema. 23. Morbid obesity, history of gastric bypass surgery. 24. Neurogenic bladder with voiding dysfunction, status post suprapubic cystostomy. 25. History of hyperlipidemia. 26. History of chronic constipation. 27. History of degenerative joint disease of the spine, knees and hips. 28. Morbid obesity. 1. Episodic agitation and restlessness with possible behavioral disorder. 2. History of cerebrovascular accident with right-sided hemiparesis. 3. Questionable and possible Clostridium difficile associated diarrhea. 4. Normocytic anemia. 5. History of Clostridium difficile colitis. 6. Hypokalemia. 7. Acute kidney injury (resolving). 8. Hypomagnesemia. 9. History of hypothyroidism. 10. Episodic agitation and restlessness, probably secondary to aphasia, apraxia and dysarthria. 11. Cholelithiasis. 12. Right renal cyst. 13. History of gastric bypass. 14. Prostatomegaly. 15. Voiding dysfunction status post suprapubic cystostomy. 16. Old right frontal infarct. 17. Microvascular ischemic disease of the brain. 18. Cerebral cortical atrophy of the brain. 19. Decreased high-density lipoprotein. 1. Questionable altered mental status with possible behavioral disorder with combative and aggressive behavior. 2. Questionable Clostridium difficile associated diarrhea. 3. Mild normocytic anemia. 4. Granulocytosis. 5. Hypokalemia. 6. Chronic kidney disease stage 3. 7. Status post suprapubic cystostomy. 8. Proteinuria. 9. Microscopic hematuria, pyuria, bacteriuria. 10. History of left-sided cerebral cortical infarct with right hemiparesis. 11. Cardiomegaly. 12. Dilated cardiomyopathy. 13. Pulmonary hypertension. 14. Bilateral lower extremity venous stasis and lymphedema. 15. Deconditioning. 16. Gait dysfunction. 17. Morbid obesity. 18. Atrial fibrillation. 19. Expressive aphasia, dysarthria, apraxia. 20. Hypertension. 21. History of anxiety. 22. Hyperlipidemia. 23. Coumadin-dependent atrial fibrillation. 24. Hypovitaminosis D. 25. History of hypothyroidism. 26. History of constipation, history of hypokalemia, history of prostatic hypertrophy. 27. History of noncompliance. PLAN: At this time, the patient has been admitted by Dr. Nance for possible revision of suprapubic cystostomy in operating room tomorrow. The patient's Eliquis at this time has been held in anticipation for operating room and surgical intervention for suprapubic cystostomy. The patient will be resumed on other home medications. The patient is started on subcutaneously heparin for DVT prophylaxis. The patient is on aspirin 81 mg p.o. daily, Benadryl 25 mg p.o. every 8 hours p.r.n., Cozaar 50 mg daily, Depakote 500 mg twice a day, heparin 5000 subcutaneously every 8 hours, Lac-Hydrin lotion to both lower extremity twice a day, Lipitor 40 mg daily, Lopressor 50 mg twice a day, nystatin topical powder to affected area twice a day, Pepcid 20 mg twice a day, Seroquel 12.5 mg at bedtime, Synthroid 25 mcg daily, Tylenol 650 mg p.o. suppository every 6 hours p.r.n., vancomycin 250 mg p.o. q.i.d., vitamin D3 of 2000 international units daily, Xanax 0.25 mg b.i.d. and Xanax 0.25 at bedtime. The patient is on dysphagia modified consistency diet, SCDs ordered, head of the bed at 30 degrees. The patient will be put on assist with meals. At present, the patient is awaiting for a bed. The patient's further management will be dependent upon the patient's clinical condition, hemodynamic status and as per the patient's response to therapeutic intervention as per further recommendation and treatment intervention by the Urology. Dictated and electronically signed, not read. Rashad Brown MD [facility]
[2018-07-09] MEDS: Cholecalciferol 1,000 INTLU TAB PO SCH (13:34)
[2018-07-09] MEDS: Divalproex 125 mg EC Sprinkle Cap PO SCH ×2 (13:37→20:10)
[2018-07-09] MEDS ORDERED: Iohexol 240 (50 ml) ONE (17:38)
[2018-07-09] MEDS ORDERED: Lidocaine 1% Inj (20ml) ONE (17:38)
[2018-07-09] MEDS ORDERED: Propofol 10 mg/ml Inj (20 ML) ONE (18:31)
[2018-07-09] MEDS ORDERED: Midazolam 2 MG/2 ML VIAL ONE (18:31)
--- NOTE | 2018-07-09 19:12 | PCM.URO ---
Urology Progress Note - Objective Lab Studies: Reviewed (spt to sd full notes dictated) Lab Results Last 24 Hours: Laboratory Results - last 24 hr 07/09/18 12:47 POC Glucose (mg/dL) 84 Intake & Output: Intake & Output 07/09/18 07/09/18 07/10/18 06:59 18:59 06:59 Weight 290 lb Vital Signs: Vital Signs - 24 hr 07/08/18 07/08/18 07/09/18 21:00 23:45 07:00 Temperature 99.1 F 98.4 F Pulse Rate 88 78 Pulse Rate [ 67 Apical] Respiratory 18 18 20 Rate Blood Pressure 134/73 111/77 O2 Sat by Pulse 98 95 Oximetry 07/09/18 07/09/18 07/09/18 11:00 14:00 17:15 Temperature 97.3 F L 97.9 F Pulse Rate 85 76 79 Pulse Rate [ Apical] Respiratory 12 20 20 Rate Blood Pressure 143/73 130/91 H 156/88 H O2 Sat by Pulse 95 100 97 Oximetry
[2018-07-09] MEDS: Ammonium Lactate 12% Lotion (225 g) EXT SCH (20:10)
[2018-07-09] MEDS: Vancomycin 25 MG/ML PO SCH (20:11)
[2018-07-09] MEDS: Nystatin 100,000 Units/gm Topical Pow(15 gm) TOP SCH (20:11)
[2018-07-09] MEDS: Levothyroxine 25 MCG TAB PO SCH (20:11)
[2018-07-09] MEDS ORDERED: Sodium Chloride 0.9% 1,000 ML IV SCH (21:00)
--- NOTE | 2018-07-09 22:22 | PN ---
DATE: 07/09/2018 SUBJECTIVE: The patient is seen lying in the bed in room 576, bed #1. The patient has received sedation with Seroquel and Ativan. The patient is sleepy but arousable and responsive but much calmer. Overnight nurse's notes were reviewed. PHYSICAL EXAMINATION: VITAL SIGNS: Temperature 97.6, 97.9, 97.3, 98.4; pulse rate 78, 85; blood pressure in the last 24 hours 134/73, 170/93, 166/66, 111/77, 143/73; respirations 18; O2 sat 95%-98%. GENERAL: The patient is seen lying in the strap bed. HEAD: Normocephalic, atraumatic. EENT: Shows pink conjunctivae. Anicteric sclerae. No oropharyngeal lesion. No neck rigidity. CHEST: Kyphosis. LUNGS: Shows no rales, crackles, or wheezing. CARDIOVASCULAR: S1 and S2, irregular rhythm. Positive systolic murmur in left sternal border, right second intercostal space, left second intercostal space. ABDOMEN: Obese. Positive bowel sounds, positive suprapubic cystostomy noted. GENITALIA: Male. RECTAL: Deferred. EXTREMITIES: Show positive chronic skin changes of the lymphedema of the leg noted. MUSCULOSKELETAL: Shows a body mass index of 47. NEUROLOGIC: The patient is arousable, sleepy, awake, responsive. DIAGNOSTICS: None from today. The patient is awaiting urological intervention. IMPRESSION: 1. Suprapubic cystostomy malfunction. 2. Voiding dysfunction with urinary retention and urinary incontinence. 3. Hypertension. 4. Granulocytosis. 5. Anticoagulation dependent atrial fibrillation. 6. Chronic kidney disease stage 3. 7. Morbid obesity. 8. Deconditioning. 9. Gait dysfunction. 10. 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 11. Longstanding history of poor and noncompliance. 12. Behavioral disorder. 13. Chronic bilateral lower extremity lymphedema. 14. Hyperlipidemia. 15. Hypothyroidism. 16. Clostridium difficile associated diarrhea and pseudomembranous colitis and (resolved). 17. Hypovitaminosis D. 18. Questionable anxiety disorder. 19. History of constipation. 1. Suprapubic cystostomy malfunction with questionable urinary incontinence from the suprapubic catheter site. 2. Hypertension. 3. Gait dysfunction. 4. Granulocytosis. 5. Chronic kidney disease, stage III. 6. Mild hyperbilirubinemia. 7. Morbid obesity. 8. History of cerebral infarct with residual right-sided weakness (almost resolved). 9. Clostridium difficile associated diarrhea with pseudomembranous colitis. 10. Behavioral disorder with agitation and combativeness. 11. Hypokalemia. 12. Anticoagulation requiring atrial fibrillation. 13. Hypothyroidism. 14. History of constipation. 15. Hypovitaminosis D. 16. Hyperlipidemia. 17. Questionable anxiety disorder. 1. Clostridium difficile associated diarrhea and pseudomembranous colitis (resolving). 2. Altered mental status with behavioral disorder with combative, aggressive behavior. 3. History of longstanding noncompliance. 4. Hypertension. 5. Deconditioning. 6. History of cerebral infarct with residual right-sided weakness (resolved). 7. Mild normocytic anemia. 8. Granulocytosis. 9. Anticoagulation-dependent atrial fibrillation. 10. Hypokalemia. 11. Status post acute kidney injury. 12. Mild hyperbilirubinemia. 13. Hypomagnesemia. 14. History of hypothyroidism. 15. History of hypovitaminosis D. 16. History of hyperlipidemia. 17. Proteinuria, hematuria, pyuria, bacteriuria. 18. Gait dysfunction. 19. History of bilateral lower extremity lymphedema and bilateral lower extremity venous stasis. 20. 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 21. Cholelithiasis. 22. Anterior abdominal wall muscular atrophy. 23. Incidental finding of cholelithiasis. 24. Morbid obesity. 25. Cardiomyopathy. 26. Pulmonary hypertension. 1. Persistent behavioral disorder with continuous and intermittent screaming and yelling and agitation. 2. Vascular type dementia and delirium. 3. Status post acute kidney injury (resolved). 4. Hypertension. 5. Hypokalemia. 6. Hypomagnesemia. 7. Chronic kidney disease stage III. 8. Anticoagulation requiring atrial fibrillation. 9. Mild normocytic anemia. 10. Granulocytosis. 11. History of hypothyroidism. 12. History of cardiomyopathy. 13. Longstanding history of poor compliance and noncompliance. 14. Gait dysfunction. 15. Proteinuria, microscopic hematuria, pyuria, bacteriuria. 16. Clostridium difficile associated diarrhea and pseudomembranous colitis. 17. Deconditioning. 18. Morbid obesity. 19. Voiding dysfunction and neurogenic bladder with status post suprapubic cystostomy. 20. Anticoagulation requiring atrial fibrillation. 21. Hyperlipidemia. 22. Hypothyroidism. 23. Hypovitaminosis D. 24. Agitation and combative behavior. 25. Vascular dementia with delirium. 1. Delirium versus possible vascular dementia. 2. Behavioral disorder, probably secondary to cerebral infarct. 3. Extremely poor compliance and noncompliance with history of longstanding noncompliance and poor compliance. 4. Gait dysfunction. 5. Morbid obesity. 6. History of cerebral infarct with right-sided residual hemiparesis and weakness. 7. Expressive aphasia, dysarthria, apraxia. 8. Extremely poor compliance with refusing to take medications, refusing to do physical therapy, refusing to be out of bed to chair. 9. Normocytic anemia. 10. Anticoagulation requiring atrial fibrillation. 11. Morbid obesity, status post gastric bypass surgery. 12. Neurogenic bladder and voiding dysfunction with status post suprapubic cystostomy placement. 13. Mild hypoalbuminemia. 14. Status post acute kidney injury. 15. Congestive heart failure. 16. Pulmonary hypertension. 17. Bilateral lower extremity lymphedema and venous stasis of the lower extremity. 18. Hyperlipidemia. 19. Hypertension. 20. Hypothyroidism. 21. Voiding dysfunction. 1. Severe behavioral disorder. 2. Agitated and combative behavior. 3. Delirium. 4. Vascular dementia. 5. Severe cerebral cortical atrophy and chronic microvascular ischemic disease of the brain on MRI of the brain. 6. Gait dysfunction. 7. Deconditioning. 8. Status post acute kidney injury. 9. Anticoagulation-dependent atrial fibrillation. 10. History of cerebral infarct with right-sided residual hemiparesis and weakness. 11. Pseudomembranous colitis with Clostridium difficile associated diarrhea (resolving). 12. Hypertension. 13. Morbid obesity, status post gastric bypass surgery. 14. Voiding dysfunction with neurogenic bladder, status post suprapubic cystostomy placement. 15. Gait dysfunction. 16. Deconditioning. 17. Uncooperative behavior. 18. History of longstanding poor compliance and noncompliance. 19. Atrial fibrillation. 20. Hyperlipidemia. 21. History of chronic constipation. 22. 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 23. History of bilateral lower extremity lymphedema and venous stasis. 1. Clostridium difficile associated diarrhea and colitis with Clostridium difficile toxin and antigen positive. 2. Delirium. 3. Vascular dementia. 4. Toxic metabolic encephalopathy. 5. Behavioral disorder. 6. Episodic agitation and noncompliance with medication treatment, etc. 7. Normocytic anemia. 8. Anticoagulation-dependent atrial fibrillation. 9. History of cerebrovascular infarct with right residual hemiparesis. 10. Expressive aphasia, dysarthria and apraxia. 11. Normocytic anemia. 12. Acute kidney injury with underlying chronic kidney disease stage 3 A and B. 13. Normocytic anemia. 14. Hypertension. 15. Atrial fibrillation. 16. Hypokalemia. 17. Hypomagnesemia. 18. Acute exacerbation of delirium and vascular dementia. 19. Right ventricular dysfunction with cardiorenal syndrome. 20. History of dilated cardiomyopathy and systolic congestive heart failure. 21. Gait dysfunction. 22. Bilateral lower extremity venous lymphedema. 23. Morbid obesity, history of gastric bypass surgery. 24. Neurogenic bladder with voiding dysfunction, status post suprapubic cystostomy. 25. History of hyperlipidemia. 26. History of chronic constipation. 27. History of degenerative joint disease of the spine, knees and hips. 28. Morbid obesity. 1. Episodic agitation and restlessness with possible behavioral disorder. 2. History of cerebrovascular accident with right-sided hemiparesis. 3. Questionable and possible Clostridium difficile associated diarrhea. 4. Normocytic anemia. 5. History of Clostridium difficile colitis. 6. Hypokalemia. 7. Acute kidney injury (resolving). 8. Hypomagnesemia. 9. History of hypothyroidism. 10. Episodic agitation and restlessness, probably secondary to aphasia, apraxia and dysarthria. 11. Cholelithiasis. 12. Right renal cyst. 13. History of gastric bypass. 14. Prostatomegaly. 15. Voiding dysfunction status post suprapubic cystostomy. 16. Old right frontal infarct. 17. Microvascular ischemic disease of the brain. 18. Cerebral cortical atrophy of the brain. 19. Decreased high-density lipoprotein. 1. Questionable altered mental status with possible behavioral disorder with combative and aggressive behavior. 2. Questionable Clostridium difficile associated diarrhea. 3. Mild normocytic anemia. 4. Granulocytosis. 5. Hypokalemia. 6. Chronic kidney disease stage 3. 7. Status post suprapubic cystostomy. 8. Proteinuria. 9. Microscopic hematuria, pyuria, bacteriuria. 10. History of left-sided cerebral cortical infarct with right hemiparesis. 11. Cardiomegaly. 12. Dilated cardiomyopathy. 13. Pulmonary hypertension. 14. Bilateral lower extremity venous stasis and lymphedema. 15. Deconditioning. 16. Gait dysfunction. 17. Morbid obesity. 18. Atrial fibrillation. 19. Expressive aphasia, dysarthria, apraxia. 20. Hypertension. 21. History of anxiety. 22. Hyperlipidemia. 23. Coumadin-dependent atrial fibrillation. 24. Hypovitaminosis D. 25. History of hypothyroidism. 26. History of constipation, history of hypokalemia, history of prostatic hypertrophy. 27. History of noncompliance. PLAN: At this time, the patient is awaiting for urological intervention after which the patient's Eliquis will be resumed tomorrow. The patient is on aspirin 81 mg daily, Benadryl 25 mg p.o. every 8 hours p.r.n., Cozaar 50 mg daily, Depakote 500 twice a day, Eliquis 2.5 twice a day to be started from tomorrow, heparin 5000 subcu every 8 hours, Lac-Hydrin lotion to the affected area twice a day, Lipitor 40 mg daily, Lopressor 50 mg twice a day, Nystatin border to the affected area of the groin twice a day, Pepcid 20 mg twice a day, Seroquel 12.5 mg at bedtime. The patient is started on 0.9 normal saline at 70 mL an hour for 1 liter, Synthroid 25 mcg daily, Tylenol 650 mg p.o. suppository every 6 hours p.r.n., vancomycin 250 mg four times a day, vitamin D3 2000 International Units daily, Xanax 0.25 mg b.i.d. and Xanax 0.25 mg at bedtime. At present, the patient is medically stable for discharge if the patient is cleared by Urology for discharge. Dictated and electronically signed, not read. Rashad Brown MD MTDD
[2018-07-10] MEDS: Divalproex 125 mg EC Sprinkle Cap PO SCH ×2 (09:06→17:06)
[2018-07-10] MEDS: Cholecalciferol 1,000 INTLU TAB PO SCH (09:07)
[2018-07-10] MEDS: Levothyroxine 25 MCG TAB PO SCH (09:08)
[2018-07-10] MEDS: Nystatin 100,000 Units/gm Topical Pow(15 gm) TOP SCH ×2 (10:00→17:07)
[2018-07-10] MEDS: Vancomycin 25 MG/ML PO SCH ×3 (10:00→17:13)
[2018-07-10] MEDS: Ammonium Lactate 12% Lotion (225 g) EXT SCH ×2 (10:00→18:00)
--- NOTE | 2018-07-10 10:52 | PN ---
DATE: 07/10/2018 SUBJECTIVE: The patient is in room 576, bed 1. The patient is lying in the bed. Overnight nurse's notes were reviewed. The patient was noted by the nurses to be calling loudly and yelling. The patient was assisted with feeding and meals. The patient slept intermittently during the night as per the nurse's note. Yesterday, the patient underwent urological intervention with placement of 16-Turkish two-way suprapubic cystostomy tube, which the patient tolerated without any complications. PHYSICAL EXAMINATION: VITAL SIGNS: In the last 12 to 24 hours, T-max 97.6, heart rate 90, blood pressure 144/85, respirations 16, O2 sat 98%. HEAD: Normocephalic, atraumatic. EENT: Shows pinkish conjunctivae. Anicteric sclerae. No oropharyngeal lesion. NECK: No neck rigidity. Neck is short and supple. CHEST: Kyphosis. LUNGS: Show no audible rales, crackles, or wheezing. CARDIOVASCULAR: S1, S2, irregular rhythm. Questionable soft systolic murmur in left sternal border, right second intercostal space, left second intercostal space. ABDOMEN: Obese. Positive bowel sounds. Positive suprapubic cystostomy. GENITALIA: Male. RECTAL: Deferred. EXTREMITIES: Show chronic skin changes of the lower extremity secondary to lymphedema. MUSCULOSKELETAL: Shows an elevated body mass index. NEUROLOGIC: The patient is awake, responsive, intermittently yelling loudly. The patient is being observed to be less combative and less aggressive according to the nurses' notes and physician evaluation in the last 24 hours. DIAGNOSTICS: None. IMPRESSION: 1. Suprapubic cystostomy malfunction and dysfunction. 2. Status post suprapubic cystostomy catheter change with 16-Turkish two-way suprapubic cystostomy placement. 3. Gait dysfunction. 4. Deconditioning. 5. Morbid obesity. 6. History of cerebral infarct with residual right-sided weakness. 7. Expressive aphasia, apraxia, and dysarthria. 8. Longstanding chronic noncompliance and poor compliance. 9. Anticoagulation-dependent atrial fibrillation. 10. Cardiomyopathy. 11. Pulmonary hypertension. 12. Hypothyroidism. 13. Bilateral lower extremity lymphedema with history of venous stasis ulceration of the lower extremity. 14. Degenerative joint disease of the spine, hips, and knees. 15. Voiding dysfunction. 16. Possible neurogenic bladder. 17. History of constipation. 18. Clostridium difficile associated diarrhea and pseudomembranous colitis, presently on p.o. Vancocin. 19. History of dilated cardiomyopathy and systolic congestive heart failure. 20. Hyperlipidemia. 21. Hypertension. 1. Suprapubic cystostomy malfunction. 2. Voiding dysfunction with urinary retention and urinary incontinence. 3. Hypertension. 4. Granulocytosis. 5. Anticoagulation dependent atrial fibrillation. 6. Chronic kidney disease stage 3. 7. Morbid obesity. 8. Deconditioning. 9. Gait dysfunction. 10. 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 11. Longstanding history of poor and noncompliance. 12. Behavioral disorder. 13. Chronic bilateral lower extremity lymphedema. 14. Hyperlipidemia. 15. Hypothyroidism. 16. Clostridium difficile associated diarrhea and pseudomembranous colitis and (resolved). 17. Hypovitaminosis D. 18. Questionable anxiety disorder. 19. History of constipation. 1. Suprapubic cystostomy malfunction with questionable urinary incontinence from the suprapubic catheter site. 2. Hypertension. 3. Gait dysfunction. 4. Granulocytosis. 5. Chronic kidney disease, stage III. 6. Mild hyperbilirubinemia. 7. Morbid obesity. 8. History of cerebral infarct with residual right-sided weakness (almost resolved). 9. Clostridium difficile associated diarrhea with pseudomembranous colitis. 10. Behavioral disorder with agitation and combativeness. 11. Hypokalemia. 12. Anticoagulation requiring atrial fibrillation. 13. Hypothyroidism. 14. History of constipation. 15. Hypovitaminosis D. 16. Hyperlipidemia. 17. Questionable anxiety disorder. 1. Clostridium difficile associated diarrhea and pseudomembranous colitis (resolving). 2. Altered mental status with behavioral disorder with combative, aggressive behavior. 3. History of longstanding noncompliance. 4. Hypertension. 5. Deconditioning. 6. History of cerebral infarct with residual right-sided weakness (resolved). 7. Mild normocytic anemia. 8. Granulocytosis. 9. Anticoagulation-dependent atrial fibrillation. 10. Hypokalemia. 11. Status post acute kidney injury. 12. Mild hyperbilirubinemia. 13. Hypomagnesemia. 14. History of hypothyroidism. 15. History of hypovitaminosis D. 16. History of hyperlipidemia. 17. Proteinuria, hematuria, pyuria, bacteriuria. 18. Gait dysfunction. 19. History of bilateral lower extremity lymphedema and bilateral lower extremity venous stasis. 20. 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 21. Cholelithiasis. 22. Anterior abdominal wall muscular atrophy. 23. Incidental finding of cholelithiasis. 24. Morbid obesity. 25. Cardiomyopathy. 26. Pulmonary hypertension. 1. Persistent behavioral disorder with continuous and intermittent screaming and yelling and agitation. 2. Vascular type dementia and delirium. 3. Status post acute kidney injury (resolved). 4. Hypertension. 5. Hypokalemia. 6. Hypomagnesemia. 7. Chronic kidney disease stage III. 8. Anticoagulation requiring atrial fibrillation. 9. Mild normocytic anemia. 10. Granulocytosis. 11. History of hypothyroidism. 12. History of cardiomyopathy. 13. Longstanding history of poor compliance and noncompliance. 14. Gait dysfunction. 15. Proteinuria, microscopic hematuria, pyuria, bacteriuria. 16. Clostridium difficile associated diarrhea and pseudomembranous colitis. 17. Deconditioning. 18. Morbid obesity. 19. Voiding dysfunction and neurogenic bladder with status post suprapubic cystostomy. 20. Anticoagulation requiring atrial fibrillation. 21. Hyperlipidemia. 22. Hypothyroidism. 23. Hypovitaminosis D. 24. Agitation and combative behavior. 25. Vascular dementia with delirium. 1. Delirium versus possible vascular dementia. 2. Behavioral disorder, probably secondary to cerebral infarct. 3. Extremely poor compliance and noncompliance with history of longstanding noncompliance and poor compliance. 4. Gait dysfunction. 5. Morbid obesity. 6. History of cerebral infarct with right-sided residual hemiparesis and weakness. 7. Expressive aphasia, dysarthria, apraxia. 8. Extremely poor compliance with refusing to take medications, refusing to do physical therapy, refusing to be out of bed to chair. 9. Normocytic anemia. 10. Anticoagulation requiring atrial fibrillation. 11. Morbid obesity, status post gastric bypass surgery. 12. Neurogenic bladder and voiding dysfunction with status post suprapubic cystostomy placement. 13. Mild hypoalbuminemia. 14. Status post acute kidney injury. 15. Congestive heart failure. 16. Pulmonary hypertension. 17. Bilateral lower extremity lymphedema and venous stasis of the lower extremity. 18. Hyperlipidemia. 19. Hypertension. 20. Hypothyroidism. 21. Voiding dysfunction. 1. Severe behavioral disorder. 2. Agitated and combative behavior. 3. Delirium. 4. Vascular dementia. 5. Severe cerebral cortical atrophy and chronic microvascular ischemic disease of the brain on MRI of the brain. 6. Gait dysfunction. 7. Deconditioning. 8. Status post acute kidney injury. 9. Anticoagulation-dependent atrial fibrillation. 10. History of cerebral infarct with right-sided residual hemiparesis and weakness. 11. Pseudomembranous colitis with Clostridium difficile associated diarrhea (resolving). 12. Hypertension. 13. Morbid obesity, status post gastric bypass surgery. 14. Voiding dysfunction with neurogenic bladder, status post suprapubic cystostomy placement. 15. Gait dysfunction. 16. Deconditioning. 17. Uncooperative behavior. 18. History of longstanding poor compliance and noncompliance. 19. Atrial fibrillation. 20. Hyperlipidemia. 21. History of chronic constipation. 22. 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 23. History of bilateral lower extremity lymphedema and venous stasis. 1. Clostridium difficile associated diarrhea and colitis with Clostridium difficile toxin and antigen positive. 2. Delirium. 3. Vascular dementia. 4. Toxic metabolic encephalopathy. 5. Behavioral disorder. 6. Episodic agitation and noncompliance with medication treatment, etc. 7. Normocytic anemia. 8. Anticoagulation-dependent atrial fibrillation. 9. History of cerebrovascular infarct with right residual hemiparesis. 10. Expressive aphasia, dysarthria and apraxia. 11. Normocytic anemia. 12. Acute kidney injury with underlying chronic kidney disease stage 3 A and B. 13. Normocytic anemia. 14. Hypertension. 15. Atrial fibrillation. 16. Hypokalemia. 17. Hypomagnesemia. 18. Acute exacerbation of delirium and vascular dementia. 19. Right ventricular dysfunction with cardiorenal syndrome. 20. History of dilated cardiomyopathy and systolic congestive heart failure. 21. Gait dysfunction. 22. Bilateral lower extremity venous lymphedema. 23. Morbid obesity, history of gastric bypass surgery. 24. Neurogenic bladder with voiding dysfunction, status post suprapubic cystostomy. 25. History of hyperlipidemia. 26. History of chronic constipation. 27. History of degenerative joint disease of the spine, knees and hips. 28. Morbid obesity. 1. Episodic agitation and restlessness with possible behavioral disorder. 2. History of cerebrovascular accident with right-sided hemiparesis. 3. Questionable and possible Clostridium difficile associated diarrhea. 4. Normocytic anemia. 5. History of Clostridium difficile colitis. 6. Hypokalemia. 7. Acute kidney injury (resolving). 8. Hypomagnesemia. 9. History of hypothyroidism. 10. Episodic agitation and restlessness, probably secondary to aphasia, apraxia and dysarthria. 11. Cholelithiasis. 12. Right renal cyst. 13. History of gastric bypass. 14. Prostatomegaly. 15. Voiding dysfunction status post suprapubic cystostomy. 16. Old right frontal infarct. 17. Microvascular ischemic disease of the brain. 18. Cerebral cortical atrophy of the brain. 19. Decreased high-density lipoprotein. 1. Questionable altered mental status with possible behavioral disorder with combative and aggressive behavior. 2. Questionable Clostridium difficile associated diarrhea. 3. Mild normocytic anemia. 4. Granulocytosis. 5. Hypokalemia. 6. Chronic kidney disease stage 3. 7. Status post suprapubic cystostomy. 8. Proteinuria. 9. Microscopic hematuria, pyuria, bacteriuria. 10. History of left-sided cerebral cortical infarct with right hemiparesis. 11. Cardiomegaly. 12. Dilated cardiomyopathy. 13. Pulmonary hypertension. 14. Bilateral lower extremity venous stasis and lymphedema. 15. Deconditioning. 16. Gait dysfunction. 17. Morbid obesity. 18. Atrial fibrillation. 19. Expressive aphasia, dysarthria, apraxia. 20. Hypertension. 21. History of anxiety. 22. Hyperlipidemia. 23. Coumadin-dependent atrial fibrillation. 24. Hypovitaminosis D. 25. History of hypothyroidism. 26. History of constipation, history of hypokalemia, history of prostatic hypertrophy. 27. History of noncompliance. PLAN: At this time, the patient is medically stable regarding his medical issues. The patient needs to be maintained and take all the medications prescribed to the patient. The patient needs urological clearance for discharge home with visiting nurse, home health aide, home PT. Discharge followup with Dr. Brown and Dr. Nance within 1 week. The patient's medications are as per the MAR of today. The patient's Eliquis has been resumed. The patient's medications will be continued as per the MAR of today. The patient's overall prognosis is guarded due to the patient's multiple comorbidity and history of noncompliance, poor compliance and compromised clinical status and also due to the patient's behavioral disorder. Dictated and electronically signed, not read. Rasahd Brown MD MTDJosé Luis
--- NOTE | 2018-07-10 13:59 | RAD ---
Date of service: 07/09/2018 PROCEDURE: Fluoroscopy up to 1 hr HISTORY: SUPRAPUBIC CATHETER CHANGE / CYSTOGRAM COMPARISON: TECHNIQUE: 6.1 sec of fluoro time. 10.37 mGy. Five images submitted FINDINGS: The study shows suprapubic placement of a balloon tipped catheter in the bladder IMPRESSION: As above
--- NOTE | 2018-07-10 16:19 | HP ---
DATE OF EXAM: 07/08/2018 INFORMATION: Failure to thrive at home. HISTORY OF PRESENT ILLNESS: Mr. Damon is a very pleasant gentleman who has multiple medical issues, he has had CVA, he has an altered mental status. Received many multiple admissions before. Mostly admitted to Dr. Brown's service, saw the medical doctor. He has also been on my service one previous time. In this case, I also spoke to the emergency room. I spoke to the at home. The patient has the following urologic complaint. He has a suprapubic catheter that intermittently is not draining right for unclear etiology. It certainly in place, and when I irrigated it, it irrigates like a 12-Georgian Sevilla catheter should irrigate. That is not as well 16 or 20-Georgian, but it irrigates and it is certainly in place. Sometimes it is conditional. Because of this, he has had but it is a little bit early to try to change the catheter, see the previous notes, there we have dealt with the catheter. I am trying to wait to change it. But at this point, I am bringing them in. We are going to change the catheter. At the separate note, the patient is also being brought in. I am going to put him onto my service, but I am going to requesting the social media marketing manager to assist the patient. The now feels ready, she have him go to a prison today by the decision and she is pointing in many directions. At home, she reports that he falls often, he falls out of bed. She is unable to pick him up, she has to wait for her son to get there to help. her son has his own health issues with diabetes. She is by herself. Sometimes she has a daughter comes to help aide. It is becoming a difficulty situation. She is very reluctant to having a prison facility. At this point, she says she is ready for this. She said this with tears in eyes. I am going to ask social media marketing manager and therapy and ask the therapy to discuss in this situation. But the patient is being in emergency, we are going to adjust the catheter. I am going to see back and arrange for the OR. I am also going to request that to keep followup medical consultation back . For his routine stuff but patient is being as an emergency to as well. Past medical and surgical history looked nothing really has changed recently. He has been in the hospital for several on the chart. MEDICATIONS: See the chart. He is on blood thinner, we are going to continue this. Even through plan procedure. We will continue as needed to make sure that we do not have stroke. REVIEW OF SYSTEMS: As listed above. Nothing else has changed. MEDICATIONS: All listed on the chart. PHYSICAL EXAMINATION GENERAL: Well-nourished male in no apparent distress. Currently resting comfortably. LUNGS: Clear. HEART: S1, S2. ABDOMEN: The suprapubic site looks to be clean without secondary to the patient's body habitus. It full, but it is clean and well. There is a little lip from skin. But it is within normal limits. There is a suture that is attached to the Sevilla catheter, but it is not attached to the skin. I do not want to cut that and the risk of cutting the Sevilla. But we detached it from the skin because it was pulling. See previous note. But that does not reflect anything else. The Sevilla catheter is in good location. And has a balloon that is inflated that I confirmed with inflation and deflation technique. The patient has a normal at discharge currently. Currently, of note, the patient's reports that he is wetting from below through the pubis. DIAGNOSES: 1. Altered mental status. 2. Status post cerebrovascular accident. 3. Aphasia. 4. A nonfunctioning Sevilla catheter. 5. Obesity. ASSESSMENT AND PLAN: This gentleman is very pleasant very challenged at this point. The reports "I am not with him." I cannot take care of him. Now, she with great reluctance is considering now is concerning and having the patient to a prison. We discussed options at great length. So from urology standpoint, we are going to do the followin. We are going to maintain the prior suprapubic catheter, but I am going to bring him to the OR and try to place him on larger bore catheter. And keep this work it drain better. I did discuss that despite we wanted to do this and despite I do not want to and despite the patient not wanting it and despite the not wanting it, there may be necessary just to replace the Sevilla catheter by the penis. By urethra, not inside the urethra. Specifically, we tried initially putting a suprapubic catheter with difficulty and then we had to do a second attempt. This catheter went improperly, is draining well for a week or so, we observed him in the hospital and it was working well with no incontinence by the penis, by the urethra. When he left the hospital, it stopped working well and he has been back and forth with that. But perhaps it is positional, perhaps it is in the dome of the bladder in a funny way. We are going to do is the following, we are admitting him to the hospital's emergency admission. I will go and address that. The other issue that we are going to address is his medical issue, we will request consultation issue that is the biggest issue is long-term care arrangement because at this point the has been basically as soon as he discharged home, he is returning to the hospital for one reason or another because he is combative whether he Sevilla catheter but it has been in evaluating the several different reasons why the patient has been readmitted and brought back to the emergency room. One of them is the Sevilla catheter, but there has been several other reasons for it. And it becomes a issue of just fci . PLAN: 1. Antibiotics. 2. Cystogram and change of a Sevilla, we are going to make arrangements as quickly as possible today at 10:30, we are going to bring . All this has been explained to the in great detail. Jae Nance MD [facility] # [id number]
[2018-07-11] MEDS: Vancomycin 25 MG/ML PO SCH ×4 (04:34→20:12)
[2018-07-11] MEDS: Divalproex 125 mg EC Sprinkle Cap PO SCH ×2 (09:47→19:09)
[2018-07-11] MEDS: Cholecalciferol 1,000 INTLU TAB PO SCH (09:48)
[2018-07-11] MEDS: Levothyroxine 25 MCG TAB PO SCH (09:49)
[2018-07-11] MEDS: Ammonium Lactate 12% Lotion (225 g) EXT SCH ×2 (10:00→18:44)
[2018-07-11] MEDS: Nystatin 100,000 Units/gm Topical Pow(15 gm) TOP SCH ×2 (10:00→18:45)
--- NOTE | 2018-07-11 11:21 | PN ---
DATE: 07/11/2018 SUBJECTIVE: The patient is in room 576, bed 2. The patient is lying in the bed. According to the patient's nurse, Rashi, the patient just went to sleep after the patient was found to be overnight agitated, screaming, yelling. The patient was given Xanax and other medications, so the patient at this time is now sleeping. The patient's condition was discussed with the patient's nurse. At present, the patient is observed to be sleeping in the bed. No adverse events were reported by the patient's nurse. PHYSICAL EXAMINATION: VITAL SIGNS: T-max 97.9, pulse 60, blood pressure 135/76, respirations 20, O2 sat 100%. LABORATORY DATA: The patient's diagnostic data is none. The patient appears to be comfortable, in no distress. There were no issues reported about the suprapubic cystostomy tube. IMPRESSION AND PLAN: 1. Suprapubic cystostomy malfunction. 2. Status post revision and placement of 16-Kyrgyz two-way suprapubic cystostomy tube placement. 3. Voiding dysfunction. 4. Neurogenic bladder. 5. Urinary incontinence. 6. Behavioral disorder with agitation and screaming behavior. 7. History of cerebral infarct with right-sided residual weakness and hemiparesis. 8. Anticoagulation-dependent atrial fibrillation. 9. Morbid obesity. 10. Hypertension. 11. . 12. Morbid obesity, status post gastric bypass surgery. 13. Cardiomyopathy. 14. Hypothyroidism. 15. Expressive aphasia, dysarthria and apraxia. 16. Gait dysfunction. 17. Deconditioning. 18. Bilateral lower extremity lymphedema and venous stasis. 19. 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 20. History of constipation. 21. Clostridium deficit associated diarrhea and pseudomembranous colitis (resolving versus resolved). 23. Hyperlipidemia. 24. Hypothyroidism. 1. Suprapubic cystostomy malfunction and dysfunction. 2. Status post suprapubic cystostomy catheter change with 16-Kyrgyz two-way suprapubic cystostomy placement. 3. Gait dysfunction. 4. Deconditioning. 5. Morbid obesity. 6. History of cerebral infarct with residual right-sided weakness. 7. Expressive aphasia, apraxia, and dysarthria. 8. Longstanding chronic noncompliance and poor compliance. 9. Anticoagulation-dependent atrial fibrillation. 10. Cardiomyopathy. 11. Pulmonary hypertension. 12. Hypothyroidism. 13. Bilateral lower extremity lymphedema with history of venous stasis ulceration of the lower extremity. 14. Degenerative joint disease of the spine, hips, and knees. 15. Voiding dysfunction. 16. Possible neurogenic bladder. 17. History of constipation. 18. Clostridium difficile associated diarrhea and pseudomembranous colitis, presently on p.o. Vancocin. 19. History of dilated cardiomyopathy and systolic congestive heart failure. 20. Hyperlipidemia. 21. Hypertension. 1. Suprapubic cystostomy malfunction. 2. Voiding dysfunction with urinary retention and urinary incontinence. 3. Hypertension. 4. Granulocytosis. 5. Anticoagulation dependent atrial fibrillation. 6. Chronic kidney disease stage 3. 7. Morbid obesity. 8. Deconditioning. 9. Gait dysfunction. 10. 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 11. Longstanding history of poor and noncompliance. 12. Behavioral disorder. 13. Chronic bilateral lower extremity lymphedema. 14. Hyperlipidemia. 15. Hypothyroidism. 16. Clostridium difficile associated diarrhea and pseudomembranous colitis and (resolved). 17. Hypovitaminosis D. 18. Questionable anxiety disorder. 19. History of constipation. 1. Suprapubic cystostomy malfunction with questionable urinary incontinence from the suprapubic catheter site. 2. Hypertension. 3. Gait dysfunction. 4. Granulocytosis. 5. Chronic kidney disease, stage III. 6. Mild hyperbilirubinemia. 7. Morbid obesity. 8. History of cerebral infarct with residual right-sided weakness (almost resolved). 9. Clostridium difficile associated diarrhea with pseudomembranous colitis. 10. Behavioral disorder with agitation and combativeness. 11. Hypokalemia. 12. Anticoagulation requiring atrial fibrillation. 13. Hypothyroidism. 14. History of constipation. 15. Hypovitaminosis D. 16. Hyperlipidemia. 17. Questionable anxiety disorder. 1. Clostridium difficile associated diarrhea and pseudomembranous colitis (resolving). 2. Altered mental status with behavioral disorder with combative, aggressive behavior. 3. History of longstanding noncompliance. 4. Hypertension. 5. Deconditioning. 6. History of cerebral infarct with residual right-sided weakness (resolved). 7. Mild normocytic anemia. 8. Granulocytosis. 9. Anticoagulation-dependent atrial fibrillation. 10. Hypokalemia. 11. Status post acute kidney injury. 12. Mild hyperbilirubinemia. 13. Hypomagnesemia. 14. History of hypothyroidism. 15. History of hypovitaminosis D. 16. History of hyperlipidemia. 17. Proteinuria, hematuria, pyuria, bacteriuria. 18. Gait dysfunction. 19. History of bilateral lower extremity lymphedema and bilateral lower extremity venous stasis. 20. 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 21. Cholelithiasis. 22. Anterior abdominal wall muscular atrophy. 23. Incidental finding of cholelithiasis. 24. Morbid obesity. 25. Cardiomyopathy. 26. Pulmonary hypertension. 1. Persistent behavioral disorder with continuous and intermittent screaming and yelling and agitation. 2. Vascular type dementia and delirium. 3. Status post acute kidney injury (resolved). 4. Hypertension. 5. Hypokalemia. 6. Hypomagnesemia. 7. Chronic kidney disease stage III. 8. Anticoagulation requiring atrial fibrillation. 9. Mild normocytic anemia. 10. Granulocytosis. 11. History of hypothyroidism. 12. History of cardiomyopathy. 13. Longstanding history of poor compliance and noncompliance. 14. Gait dysfunction. 15. Proteinuria, microscopic hematuria, pyuria, bacteriuria. 16. Clostridium difficile associated diarrhea and pseudomembranous colitis. 17. Deconditioning. 18. Morbid obesity. 19. Voiding dysfunction and neurogenic bladder with status post suprapubic cystostomy. 20. Anticoagulation requiring atrial fibrillation. 21. Hyperlipidemia. 22. Hypothyroidism. 23. Hypovitaminosis D. 24. Agitation and combative behavior. 25. Vascular dementia with delirium. 1. Delirium versus possible vascular dementia. 2. Behavioral disorder, probably secondary to cerebral infarct. 3. Extremely poor compliance and noncompliance with history of longstanding noncompliance and poor compliance. 4. Gait dysfunction. 5. Morbid obesity. 6. History of cerebral infarct with right-sided residual hemiparesis and weakness. 7. Expressive aphasia, dysarthria, apraxia. 8. Extremely poor compliance with refusing to take medications, refusing to do physical therapy, refusing to be out of bed to chair. 9. Normocytic anemia. 10. Anticoagulation requiring atrial fibrillation. 11. Morbid obesity, status post gastric bypass surgery. 12. Neurogenic bladder and voiding dysfunction with status post suprapubic cystostomy placement. 13. Mild hypoalbuminemia. 14. Status post acute kidney injury. 15. Congestive heart failure. 16. Pulmonary hypertension. 17. Bilateral lower extremity lymphedema and venous stasis of the lower extremity. 18. Hyperlipidemia. 19. Hypertension. 20. Hypothyroidism. 21. Voiding dysfunction. 1. Severe behavioral disorder. 2. Agitated and combative behavior. 3. Delirium. 4. Vascular dementia. 5. Severe cerebral cortical atrophy and chronic microvascular ischemic disease of the brain on MRI of the brain. 6. Gait dysfunction. 7. Deconditioning. 8. Status post acute kidney injury. 9. Anticoagulation-dependent atrial fibrillation. 10. History of cerebral infarct with right-sided residual hemiparesis and weakness. 11. Pseudomembranous colitis with Clostridium difficile associated diarrhea (resolving). 12. Hypertension. 13. Morbid obesity, status post gastric bypass surgery. 14. Voiding dysfunction with neurogenic bladder, status post suprapubic cystostomy placement. 15. Gait dysfunction. 16. Deconditioning. 17. Uncooperative behavior. 18. History of longstanding poor compliance and noncompliance. 19. Atrial fibrillation. 20. Hyperlipidemia. 21. History of chronic constipation. 22. 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 23. History of bilateral lower extremity lymphedema and venous stasis. 1. Clostridium difficile associated diarrhea and colitis with Clostridium difficile toxin and antigen positive. 2. Delirium. 3. Vascular dementia. 4. Toxic metabolic encephalopathy. 5. Behavioral disorder. 6. Episodic agitation and noncompliance with medication treatment, etc. 7. Normocytic anemia. 8. Anticoagulation-dependent atrial fibrillation. 9. History of cerebrovascular infarct with right residual hemiparesis. 10. Expressive aphasia, dysarthria and apraxia. 11. Normocytic anemia. 12. Acute kidney injury with underlying chronic kidney disease stage 3 A and B. 13. Normocytic anemia. 14. Hypertension. 15. Atrial fibrillation. 16. Hypokalemia. 17. Hypomagnesemia. 18. Acute exacerbation of delirium and vascular dementia. 19. Right ventricular dysfunction with cardiorenal syndrome. 20. History of dilated cardiomyopathy and systolic congestive heart failure. 21. Gait dysfunction. 22. Bilateral lower extremity venous lymphedema. 23. Morbid obesity, history of gastric bypass surgery. 24. Neurogenic bladder with voiding dysfunction, status post suprapubic cystostomy. 25. History of hyperlipidemia. 26. History of chronic constipation. 27. History of degenerative joint disease of the spine, knees and hips. 28. Morbid obesity. 1. Episodic agitation and restlessness with possible behavioral disorder. 2. History of cerebrovascular accident with right-sided hemiparesis. 3. Questionable and possible Clostridium difficile associated diarrhea. 4. Normocytic anemia. 5. History of Clostridium difficile colitis. 6. Hypokalemia. 7. Acute kidney injury (resolving). 8. Hypomagnesemia. 9. History of hypothyroidism. 10. Episodic agitation and restlessness, probably secondary to aphasia, apraxia and dysarthria. 11. Cholelithiasis. 12. Right renal cyst. 13. History of gastric bypass. 14. Prostatomegaly. 15. Voiding dysfunction status post suprapubic cystostomy. 16. Old right frontal infarct. 17. Microvascular ischemic disease of the brain. 18. Cerebral cortical atrophy of the brain. 19. Decreased high-density lipoprotein. 1. Questionable altered mental status with possible behavioral disorder with combative and aggressive behavior. 2. Questionable Clostridium difficile associated diarrhea. 3. Mild normocytic anemia. 4. Granulocytosis. 5. Hypokalemia. 6. Chronic kidney disease stage 3. 7. Status post suprapubic cystostomy. 8. Proteinuria. 9. Microscopic hematuria, pyuria, bacteriuria. 10. History of left-sided cerebral cortical infarct with right hemiparesis. 11. Cardiomegaly. 12. Dilated cardiomyopathy. 13. Pulmonary hypertension. 14. Bilateral lower extremity venous stasis and lymphedema. 15. Deconditioning. 16. Gait dysfunction. 17. Morbid obesity. 18. Atrial fibrillation. 19. Expressive aphasia, dysarthria, apraxia. 20. Hypertension. 21. History of anxiety. 22. Hyperlipidemia. 23. Coumadin-dependent atrial fibrillation. 24. Hypovitaminosis D. 25. History of hypothyroidism. 26. History of constipation, history of hypokalemia, history of prostatic hypertrophy. 27. History of noncompliance. As per my discussion with the patient's nurse, the patient's family is now looking for long-term fdc placement as per the patient's nurse. At present, while the patient is in the hospital, the patient will be continued on therapeutic intervention as per the MAR of today. I have met with the patient's yesterday and like my previous recommendation and evaluation and suggestions to the patient's on multiple previous hospitalization and office visit, I have already emphasized to the patient's about the patient's need for 24-hour care and supervision and I have advised the to work with the Medical Record Technician, Case Management regarding the patient's discharge planning options as the patient requires 24-hour care and supervision due to the patient's overall decompensated medical, neurological, psychological state. Dictated and electronically signed, not read. Rashad Brown MD [facility]
[2018-07-12] MEDS: Vancomycin 25 MG/ML PO SCH ×5 (04:49→21:15)
[2018-07-12] MEDS: Levothyroxine 25 MCG TAB PO SCH (07:54)
[2018-07-12] MEDS: Nystatin 100,000 Units/gm Topical Pow(15 gm) TOP SCH ×2 (10:32→18:27)
[2018-07-12] MEDS: Ammonium Lactate 12% Lotion (225 g) EXT SCH ×2 (10:32→18:27)
[2018-07-12] MEDS: Divalproex 125 mg EC Sprinkle Cap PO SCH ×2 (10:52→18:29)
[2018-07-12] MEDS: Cholecalciferol 1,000 INTLU TAB PO SCH (10:53)
[2018-07-13] MEDS: Divalproex 125 mg EC Sprinkle Cap PO SCH ×2 (09:37→17:05)
[2018-07-13] MEDS: Cholecalciferol 1,000 INTLU TAB PO SCH (09:38)
[2018-07-13] MEDS: Levothyroxine 25 MCG TAB PO SCH (09:39)
[2018-07-13] MEDS: Vancomycin 25 MG/ML PO SCH ×4 (09:43→22:30)
[2018-07-13] MEDS: Nystatin 100,000 Units/gm Topical Pow(15 gm) TOP SCH ×2 (11:25→17:07)
[2018-07-13] MEDS: Ammonium Lactate 12% Lotion (225 g) EXT SCH ×2 (11:26→17:07)
[2018-07-13 14:48] LABS: BASO # 0.02 K/mm3 (0.0-2.0); BASO % 0.3 % (0.0-3.0); EOS # 0.2 (0.0-0.7); EOS % 2.5 % (1.5-5.0); GRAN # 4.63 (1.4-6.5); GRAN % 69.1 % (50.0-68.0); HEMOGLOBIN 14.8 g/dL (14.0-18.0); LYMPH # 1.5 (1.2-3.4); LYMPH % 22.7 % (22.0-35.0); MEAN CELL VOLUME 93.6 fl (80.0-105.0); MEAN CORPUSCULAR HEMOGLOBIN 31.6 pg (25.0-35.0); MEAN CORPUSCULAR HGB CONC 33.8 g/dl (31.0-37.0); MEAN PLATELET VOLUME 10.3 fl (7.0-11.0); MONO # 0.4 (0.1-0.6); MONO % 5.4 % (1.0-6.0); RBC 4.68 10^6/uL (3.5-6.1); WHITE BLOOD COUNT 6.7 10^3/uL (4.5-11.0)
--- NOTE | 2018-07-13 16:21 | PN ---
DATE: 07/13/2018 SUBJECTIVE: The patient is seen in room 576, bed 1. The patient has been agitated, confused, yelling, screaming according to the nurses' notes. Overnight, also the patient was found to be agitated, confused, yelling, screaming. The patient is lying in the bed in 576, bed 1. PHYSICAL EXAMINATION: VITAL SIGNS: T-max 97.9-97.5; heart rate 76, 77, 80; blood pressure 147/92, 126/80, 128/80, 124/77; respiration 20; O2 sat 97%. HEENT: Head examination normocephalic, atraumatic. HEENT examination shows pink conjunctivae. Anicteric sclerae. No oropharyngeal lesion. No neck rigidity. CHEST: Kyphosis. LUNGS: Shows no audible rales, crackles or wheezing. CARDIOVASCULAR: S1, S2. Irregular rhythm. Positive systolic murmur, left sternal border, right second intercostal space, left second intercostal space. ABDOMEN: Obese. Positive bowel sound. Positive suprapubic cystostomy noted. GENITALIA: Male. EXTREMITY: Shows chronic leg swelling of the lower extremity. Chronic changes of the leg secondary to lymphedema noted. The patient refused the SCDs. NEUROLOGICAL: The patient is awake, responsive, dysarthric. With expressive aphasia. Positive right-sided weakness. Gait examination is not tested. The patient is agitated, restless and has been swinging his left upper extremity to the nurses and the doctors. DIAGNOSTICS: None from today. Diagnostic orders, which are CBC, CMP, LFT, magnesium, phosphorus, which is pending. The patient was ordered a urine culture by Dr. Nance yesterday. IMPRESSION AND PLAN: 1. Behavioral disorder with episodes of agitation, confusion, combativeness. 2. Suprapubic cystostomy malfunction and dysfunction. 3. Status post suprapubic cystostomy revision with placement of the new 16-Citizen Of [place] two-way suprapubic cystostomy. 4. Urinary retention and incontinence. 5. Voiding dysfunction. 6. Hypertension. 7. Atrial fibrillation. 8. Morbid obesity with elevated body mass index of 47. 9. History of cerebral infarct with right-sided paresis. 10. Dysarthria, apraxia, expressive aphasia. 11. Chronic kidney disease stage 3. 12. Hyperbilirubinemia. 13. Morbid obesity. 14. History of bilateral lower extremity lymphedema and venous stasis. 15. Gait dysfunction. 16. Deconditioning. 17. Behavioral disorder. 18. Anticoagulation-dependent atrial fibrillation. 19. Hyperlipidemia. 20. History of hypothyroidism, history of hypovitaminosis D, history of anxiety disorder. 21. History of clostridium difficile associated diarrhea and pseudomembranous colitis (resolving). 1. Status post revision of the suprapubic cystostomy with placement of 16-Citizen [place] two-way suprapubic cystostomy. 2. Voiding dysfunction. 3. Neurogenic bladder. 4. Behavioral disorder with episodes of screaming, agitation and yelling. 5. Episodic confusion. 6. History of cerebral infarct with right-sided residual hemiparesis. 7. Morbid obesity. 8. History of anticoagulation requiring atrial fibrillation. 9. Dilated cardiomyopathy. 10. Pulmonary hypertension. 11. History of gastric bypass surgery. 12. Status post suprapubic cystostomy placement. 13. Urinary incontinence, urinary retention and voiding dysfunction. 14. Bilateral lower extremity lymphedema with history of MRSA cellulitis of the bilateral lower extremities venous stasis ulceration. 15. Morbid obesity. 16. Hypertension. 17. Elevated body mass index. 18. Gait dysfunction. 19. Longstanding history of noncompliance and poor compliance. 20. History of hypertension, hyperlipidemia, hypothyroidism. 1. Suprapubic cystostomy malfunction. 2. Status post revision and placement of 16-Citizen [place] two-way suprapubic cystostomy tube placement. 3. Voiding dysfunction. 4. Neurogenic bladder. 5. Urinary incontinence. 6. Behavioral disorder with agitation and screaming behavior. 7. History of cerebral infarct with right-sided residual weakness and hemiparesis. 8. Anticoagulation-dependent atrial fibrillation. 9. Morbid obesity. 10. Hypertension. 11. . 12. Morbid obesity, status post gastric bypass surgery. 13. Cardiomyopathy. 14. Hypothyroidism. 15. Expressive aphasia, dysarthria and apraxia. 16. Gait dysfunction. 17. Deconditioning. 18. Bilateral lower extremity lymphedema and venous stasis. 19. 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 20. History of constipation. 21. Clostridium deficit associated diarrhea and pseudomembranous colitis (resolving versus resolved). 23. Hyperlipidemia. 24. Hypothyroidism. 1. Suprapubic cystostomy malfunction and dysfunction. 2. Status post suprapubic cystostomy catheter change with 16-Citizen [place] two-way suprapubic cystostomy placement. 3. Gait dysfunction. 4. Deconditioning. 5. Morbid obesity. 6. History of cerebral infarct with residual right-sided weakness. 7. Expressive aphasia, apraxia, and dysarthria. 8. Longstanding chronic noncompliance and poor compliance. 9. Anticoagulation-dependent atrial fibrillation. 10. Cardiomyopathy. 11. Pulmonary hypertension. 12. Hypothyroidism. 13. Bilateral lower extremity lymphedema with history of venous stasis ulceration of the lower extremity. 14. Degenerative joint disease of the spine, hips, and knees. 15. Voiding dysfunction. 16. Possible neurogenic bladder. 17. History of constipation. 18. Clostridium difficile associated diarrhea and pseudomembranous colitis, presently on p.o. Vancocin. 19. History of dilated cardiomyopathy and systolic congestive heart failure. 20. Hyperlipidemia. 21. Hypertension. 1. Suprapubic cystostomy malfunction. 2. Voiding dysfunction with urinary retention and urinary incontinence. 3. Hypertension. 4. Granulocytosis. 5. Anticoagulation dependent atrial fibrillation. 6. Chronic kidney disease stage 3. 7. Morbid obesity. 8. Deconditioning. 9. Gait dysfunction. 10. 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 11. Longstanding history of poor and noncompliance. 12. Behavioral disorder. 13. Chronic bilateral lower extremity lymphedema. 14. Hyperlipidemia. 15. Hypothyroidism. 16. Clostridium difficile associated diarrhea and pseudomembranous colitis and (resolved). 17. Hypovitaminosis D. 18. Questionable anxiety disorder. 19. History of constipation. 1. Suprapubic cystostomy malfunction with questionable urinary incontinence from the suprapubic catheter site. 2. Hypertension. 3. Gait dysfunction. 4. Granulocytosis. 5. Chronic kidney disease, stage III. 6. Mild hyperbilirubinemia. 7. Morbid obesity. 8. History of cerebral infarct with residual right-sided weakness (almost resolved). 9. Clostridium difficile associated diarrhea with pseudomembranous colitis. 10. Behavioral disorder with agitation and combativeness. 11. Hypokalemia. 12. Anticoagulation requiring atrial fibrillation. 13. Hypothyroidism. 14. History of constipation. 15. Hypovitaminosis D. 16. Hyperlipidemia. 17. Questionable anxiety disorder. 1. Clostridium difficile associated diarrhea and pseudomembranous colitis (resolving). 2. Altered mental status with behavioral disorder with combative, aggressive behavior. 3. History of longstanding noncompliance. 4. Hypertension. 5. Deconditioning. 6. History of cerebral infarct with residual right-sided weakness (resolved). 7. Mild normocytic anemia. 8. Granulocytosis. 9. Anticoagulation-dependent atrial fibrillation. 10. Hypokalemia. 11. Status post acute kidney injury. 12. Mild hyperbilirubinemia. 13. Hypomagnesemia. 14. History of hypothyroidism. 15. History of hypovitaminosis D. 16. History of hyperlipidemia. 17. Proteinuria, hematuria, pyuria, bacteriuria. 18. Gait dysfunction. 19. History of bilateral lower extremity lymphedema and bilateral lower extremity venous stasis. 20. 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 21. Cholelithiasis. 22. Anterior abdominal wall muscular atrophy. 23. Incidental finding of cholelithiasis. 24. Morbid obesity. 25. Cardiomyopathy. 26. Pulmonary hypertension. 1. Persistent behavioral disorder with continuous and intermittent screaming and yelling and agitation. 2. Vascular type dementia and delirium. 3. Status post acute kidney injury (resolved). 4. Hypertension. 5. Hypokalemia. 6. Hypomagnesemia. 7. Chronic kidney disease stage III. 8. Anticoagulation requiring atrial fibrillation. 9. Mild normocytic anemia. 10. Granulocytosis. 11. History of hypothyroidism. 12. History of cardiomyopathy. 13. Longstanding history of poor compliance and noncompliance. 14. Gait dysfunction. 15. Proteinuria, microscopic hematuria, pyuria, bacteriuria. 16. Clostridium difficile associated diarrhea and pseudomembranous colitis. 17. Deconditioning. 18. Morbid obesity. 19. Voiding dysfunction and neurogenic bladder with status post suprapubic cystostomy. 20. Anticoagulation requiring atrial fibrillation. 21. Hyperlipidemia. 22. Hypothyroidism. 23. Hypovitaminosis D. 24. Agitation and combative behavior. 25. Vascular dementia with delirium. 1. Delirium versus possible vascular dementia. 2. Behavioral disorder, probably secondary to cerebral infarct. 3. Extremely poor compliance and noncompliance with history of longstanding noncompliance and poor compliance. 4. Gait dysfunction. 5. Morbid obesity. 6. History of cerebral infarct with right-sided residual hemiparesis and weakness. 7. Expressive aphasia, dysarthria, apraxia. 8. Extremely poor compliance with refusing to take medications, refusing to do physical therapy, refusing to be out of bed to chair. 9. Normocytic anemia. 10. Anticoagulation requiring atrial fibrillation. 11. Morbid obesity, status post gastric bypass surgery. 12. Neurogenic bladder and voiding dysfunction with status post suprapubic cystostomy placement. 13. Mild hypoalbuminemia. 14. Status post acute kidney injury. 15. Congestive heart failure. 16. Pulmonary hypertension. 17. Bilateral lower extremity lymphedema and venous stasis of the lower extremity. 18. Hyperlipidemia. 19. Hypertension. 20. Hypothyroidism. 21. Voiding dysfunction. 1. Severe behavioral disorder. 2. Agitated and combative behavior. 3. Delirium. 4. Vascular dementia. 5. Severe cerebral cortical atrophy and chronic microvascular ischemic disease of the brain on MRI of the brain. 6. Gait dysfunction. 7. Deconditioning. 8. Status post acute kidney injury. 9. Anticoagulation-dependent atrial fibrillation. 10. History of cerebral infarct with right-sided residual hemiparesis and weakness. 11. Pseudomembranous colitis with Clostridium difficile associated diarrhea (resolving). 12. Hypertension. 13. Morbid obesity, status post gastric bypass surgery. 14. Voiding dysfunction with neurogenic bladder, status post suprapubic cystostomy placement. 15. Gait dysfunction. 16. Deconditioning. 17. Uncooperative behavior. 18. History of longstanding poor compliance and noncompliance. 19. Atrial fibrillation. 20. Hyperlipidemia. 21. History of chronic constipation. 22. 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 23. History of bilateral lower extremity lymphedema and venous stasis. 1. Clostridium difficile associated diarrhea and colitis with Clostridium difficile toxin and antigen positive. 2. Delirium. 3. Vascular dementia. 4. Toxic metabolic encephalopathy. 5. Behavioral disorder. 6. Episodic agitation and noncompliance with medication treatment, etc. 7. Normocytic anemia. 8. Anticoagulation-dependent atrial fibrillation. 9. History of cerebrovascular infarct with right residual hemiparesis. 10. Expressive aphasia, dysarthria and apraxia. 11. Normocytic anemia. 12. Acute kidney injury with underlying chronic kidney disease stage 3 A and B. 13. Normocytic anemia. 14. Hypertension. 15. Atrial fibrillation. 16. Hypokalemia. 17. Hypomagnesemia. 18. Acute exacerbation of delirium and vascular dementia. 19. Right ventricular dysfunction with cardiorenal syndrome. 20. History of dilated cardiomyopathy and systolic congestive heart failure. 21. Gait dysfunction. 22. Bilateral lower extremity venous lymphedema. 23. Morbid obesity, history of gastric bypass surgery. 24. Neurogenic bladder with voiding dysfunction, status post suprapubic cystostomy. 25. History of hyperlipidemia. 26. History of chronic constipation. 27. History of degenerative joint disease of the spine, knees and hips. 28. Morbid obesity. 1. Episodic agitation and restlessness with possible behavioral disorder. 2. History of cerebrovascular accident with right-sided hemiparesis. 3. Questionable and possible Clostridium difficile associated diarrhea. 4. Normocytic anemia. 5. History of Clostridium difficile colitis. 6. Hypokalemia. 7. Acute kidney injury (resolving). 8. Hypomagnesemia. 9. History of hypothyroidism. 10. Episodic agitation and restlessness, probably secondary to aphasia, apraxia and dysarthria. 11. Cholelithiasis. 12. Right renal cyst. 13. History of gastric bypass. 14. Prostatomegaly. 15. Voiding dysfunction status post suprapubic cystostomy. 16. Old right frontal infarct. 17. Microvascular ischemic disease of the brain. 18. Cerebral cortical atrophy of the brain. 19. Decreased high-density lipoprotein. 1. Questionable altered mental status with possible behavioral disorder with combative and aggressive behavior. 2. Questionable Clostridium difficile associated diarrhea. 3. Mild normocytic anemia. 4. Granulocytosis. 5. Hypokalemia. 6. Chronic kidney disease stage 3. 7. Status post suprapubic cystostomy. 8. Proteinuria. 9. Microscopic hematuria, pyuria, bacteriuria. 10. History of left-sided cerebral cortical infarct with right hemiparesis. 11. Cardiomegaly. 12. Dilated cardiomyopathy. 13. Pulmonary hypertension. 14. Bilateral lower extremity venous stasis and lymphedema. 15. Deconditioning. 16. Gait dysfunction. 17. Morbid obesity. 18. Atrial fibrillation. 19. Expressive aphasia, dysarthria, apraxia. 20. Hypertension. 21. History of anxiety. 22. Hyperlipidemia. 23. Coumadin-dependent atrial fibrillation. 24. Hypovitaminosis D. 25. History of hypothyroidism. 26. History of constipation, history of hypokalemia, history of prostatic hypertrophy. 27. History of noncompliance. Plan at this time, the patient's labs from today are pending. Urine cultures ordered by Dr. Nance pending. The patient's case referred to Diet Supervisor for discharge planning. CURRENT MEDICATIONS: Aspirin 81 mg daily, Benadryl 25 mg p.o. every 8 hours p.r.n. Cozaar 50 mg daily, Demadex 5 mg daily, Depakote 500 twice a day, Eliquis 2.5 mg twice a day, heparin 5000 subcu every eight, Lac-Hydrin lotion to lower extremity twice a day, Lipitor 40 mg at bedtime, Lopressor 50 mg twice a day, nystatin powder to the groin area twice a day, Pepcid 20 mg twice a day, Seroquel 12.5 at bedtime, Synthroid 25 mcg daily, Tylenol 650 mg p.o. suppository every 6 p.r.n., vancomycin 250 mg four times a day, vitamin D3 at 2000 International Units daily, Xanax 0.25 mg b.i.d. and Xanax 0.25 mg at bedtime. The patient has been on regular diet. The patient has been ordered PRASHANT stockings, elevation of the head of the bed at 30 degrees, aspiration precautions, out of bed to chair. Physical therapy, occupational therapy ordered, but the patient was unable to do physical therapy because the patient continues to act inappropriate, yells and use foul language and also swinging and trying to hit the physical therapist. The patient at this time is awaiting for long-term long term placement. Dictated and electronically signed, not read. Rashad Brown MD MTDD
[2018-07-13 16:55] LABS: ALB/GLOB RATIO 1.1 (1.1-1.8); ALBUMIN 3.4 g/dL (3.0-4.8); BILIRUBIN,DIRECT 0.2 mg/dL (0.0-0.4); CALCIUM 8.7 mg/dL (8.4-10.5)
--- NOTE | 2018-07-14 09:16 | PN ---
DATE: 07/12/2018 The patient is seen in Room 576, Bed 1. The patient is lying in the bed. The patient has been sick, shaved and cleaned up by the nursing manager. The patient is seen lying in the bed. Overnight nurse's notes were reviewed for the last 12 to 24 hours. The patient had episodes of screaming, agitation and yelling. When I came to the room after wearing protective gown and gloves, the patient started swinging his left hand at me. The patient was seen by the physical therapist, but the patient was aggressive towards physical therapy, so the patient was unable to undergo physical therapy because of aggressive behavior and swinging fist and arms at the physical therapist. PHYSICAL EXAMINATION: GENERAL: The patient was found to be lying in the bed. The patient was reported to be alert, awake, oriented x2 by the nurse's notes. VITAL SIGNS: T-max 98.2; pulse 71; blood pressure 146/100, 135/76; respirations 20; O2 sat 96%. HEAD: Normocephalic, atraumatic. EENT: Pinkish conjunctivae. Anicteric sclerae. No oropharyngeal lesion. No neck rigidity. CHEST: Kyphosis. LUNGS: No rales, crackles or wheezing at this time. CARDIOVASCULAR: S1, S2, irregular rhythm. Positive systolic murmur left sternal border, right second intercostal space, left second intercostal space. ABDOMEN: Soft, obese. Positive bowel sounds. Positive suprapubic cystostomy noted. GENITALIA: Male. RECTAL: Deferred. EXTREMITIES: Chronic skin changes of the lymphedema of the lower extremities. MUSCULOSKELETAL: Elevated body mass index. IMPRESSION: 1. Status post revision of the suprapubic cystostomy with placement of 16-Qatari two-way suprapubic cystostomy. 2. Voiding dysfunction. 3. Neurogenic bladder. 4. Behavioral disorder with episodes of screaming, agitation and yelling. 5. Episodic confusion. 6. History of cerebral infarct with right-sided residual hemiparesis. 7. Morbid obesity. 8. History of anticoagulation requiring atrial fibrillation. 9. Dilated cardiomyopathy. 10. Pulmonary hypertension. 11. History of gastric bypass surgery. 12. Status post suprapubic cystostomy placement. 13. Urinary incontinence, urinary retention and voiding dysfunction. 14. Bilateral lower extremity lymphedema with history of MRSA cellulitis of the bilateral lower extremities venous stasis ulceration. 15. Morbid obesity. 16. Hypertension. 17. Elevated body mass index. 18. Gait dysfunction. 19. Longstanding history of noncompliance and poor compliance. 20. History of hypertension, hyperlipidemia, hypothyroidism. 1. Suprapubic cystostomy malfunction. 2. Status post revision and placement of 16-Qatari two-way suprapubic cystostomy tube placement. 3. Voiding dysfunction. 4. Neurogenic bladder. 5. Urinary incontinence. 6. Behavioral disorder with agitation and screaming behavior. 7. History of cerebral infarct with right-sided residual weakness and hemiparesis. 8. Anticoagulation-dependent atrial fibrillation. 9. Morbid obesity. 10. Hypertension. 11. . 12. Morbid obesity, status post gastric bypass surgery. 13. Cardiomyopathy. 14. Hypothyroidism. 15. Expressive aphasia, dysarthria and apraxia. 16. Gait dysfunction. 17. Deconditioning. 18. Bilateral lower extremity lymphedema and venous stasis. 19. 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 20. History of constipation. 21. Clostridium deficit associated diarrhea and pseudomembranous colitis (resolving versus resolved). 23. Hyperlipidemia. 24. Hypothyroidism. 1. Suprapubic cystostomy malfunction and dysfunction. 2. Status post suprapubic cystostomy catheter change with 16-Qatari two-way suprapubic cystostomy placement. 3. Gait dysfunction. 4. Deconditioning. 5. Morbid obesity. 6. History of cerebral infarct with residual right-sided weakness. 7. Expressive aphasia, apraxia, and dysarthria. 8. Longstanding chronic noncompliance and poor compliance. 9. Anticoagulation-dependent atrial fibrillation. 10. Cardiomyopathy. 11. Pulmonary hypertension. 12. Hypothyroidism. 13. Bilateral lower extremity lymphedema with history of venous stasis ulceration of the lower extremity. 14. Degenerative joint disease of the spine, hips, and knees. 15. Voiding dysfunction. 16. Possible neurogenic bladder. 17. History of constipation. 18. Clostridium difficile associated diarrhea and pseudomembranous colitis, presently on p.o. Vancocin. 19. History of dilated cardiomyopathy and systolic congestive heart failure. 20. Hyperlipidemia. 21. Hypertension. 1. Suprapubic cystostomy malfunction. 2. Voiding dysfunction with urinary retention and urinary incontinence. 3. Hypertension. 4. Granulocytosis. 5. Anticoagulation dependent atrial fibrillation. 6. Chronic kidney disease stage 3. 7. Morbid obesity. 8. Deconditioning. 9. Gait dysfunction. 10. 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 11. Longstanding history of poor and noncompliance. 12. Behavioral disorder. 13. Chronic bilateral lower extremity lymphedema. 14. Hyperlipidemia. 15. Hypothyroidism. 16. Clostridium difficile associated diarrhea and pseudomembranous colitis and (resolved). 17. Hypovitaminosis D. 18. Questionable anxiety disorder. 19. History of constipation. 1. Suprapubic cystostomy malfunction with questionable urinary incontinence from the suprapubic catheter site. 2. Hypertension. 3. Gait dysfunction. 4. Granulocytosis. 5. Chronic kidney disease, stage III. 6. Mild hyperbilirubinemia. 7. Morbid obesity. 8. History of cerebral infarct with residual right-sided weakness (almost resolved). 9. Clostridium difficile associated diarrhea with pseudomembranous colitis. 10. Behavioral disorder with agitation and combativeness. 11. Hypokalemia. 12. Anticoagulation requiring atrial fibrillation. 13. Hypothyroidism. 14. History of constipation. 15. Hypovitaminosis D. 16. Hyperlipidemia. 17. Questionable anxiety disorder. 1. Clostridium difficile associated diarrhea and pseudomembranous colitis (resolving). 2. Altered mental status with behavioral disorder with combative, aggressive behavior. 3. History of longstanding noncompliance. 4. Hypertension. 5. Deconditioning. 6. History of cerebral infarct with residual right-sided weakness (resolved). 7. Mild normocytic anemia. 8. Granulocytosis. 9. Anticoagulation-dependent atrial fibrillation. 10. Hypokalemia. 11. Status post acute kidney injury. 12. Mild hyperbilirubinemia. 13. Hypomagnesemia. 14. History of hypothyroidism. 15. History of hypovitaminosis D. 16. History of hyperlipidemia. 17. Proteinuria, hematuria, pyuria, bacteriuria. 18. Gait dysfunction. 19. History of bilateral lower extremity lymphedema and bilateral lower extremity venous stasis. 20. 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 21. Cholelithiasis. 22. Anterior abdominal wall muscular atrophy. 23. Incidental finding of cholelithiasis. 24. Morbid obesity. 25. Cardiomyopathy. 26. Pulmonary hypertension. 1. Persistent behavioral disorder with continuous and intermittent screaming and yelling and agitation. 2. Vascular type dementia and delirium. 3. Status post acute kidney injury (resolved). 4. Hypertension. 5. Hypokalemia. 6. Hypomagnesemia. 7. Chronic kidney disease stage III. 8. Anticoagulation requiring atrial fibrillation. 9. Mild normocytic anemia. 10. Granulocytosis. 11. History of hypothyroidism. 12. History of cardiomyopathy. 13. Longstanding history of poor compliance and noncompliance. 14. Gait dysfunction. 15. Proteinuria, microscopic hematuria, pyuria, bacteriuria. 16. Clostridium difficile associated diarrhea and pseudomembranous colitis. 17. Deconditioning. 18. Morbid obesity. 19. Voiding dysfunction and neurogenic bladder with status post suprapubic cystostomy. 20. Anticoagulation requiring atrial fibrillation. 21. Hyperlipidemia. 22. Hypothyroidism. 23. Hypovitaminosis D. 24. Agitation and combative behavior. 25. Vascular dementia with delirium. 1. Delirium versus possible vascular dementia. 2. Behavioral disorder, probably secondary to cerebral infarct. 3. Extremely poor compliance and noncompliance with history of longstanding noncompliance and poor compliance. 4. Gait dysfunction. 5. Morbid obesity. 6. History of cerebral infarct with right-sided residual hemiparesis and weakness. 7. Expressive aphasia, dysarthria, apraxia. 8. Extremely poor compliance with refusing to take medications, refusing to do physical therapy, refusing to be out of bed to chair. 9. Normocytic anemia. 10. Anticoagulation requiring atrial fibrillation. 11. Morbid obesity, status post gastric bypass surgery. 12. Neurogenic bladder and voiding dysfunction with status post suprapubic cystostomy placement. 13. Mild hypoalbuminemia. 14. Status post acute kidney injury. 15. Congestive heart failure. 16. Pulmonary hypertension. 17. Bilateral lower extremity lymphedema and venous stasis of the lower extremity. 18. Hyperlipidemia. 19. Hypertension. 20. Hypothyroidism. 21. Voiding dysfunction. 1. Severe behavioral disorder. 2. Agitated and combative behavior. 3. Delirium. 4. Vascular dementia. 5. Severe cerebral cortical atrophy and chronic microvascular ischemic disease of the brain on MRI of the brain. 6. Gait dysfunction. 7. Deconditioning. 8. Status post acute kidney injury. 9. Anticoagulation-dependent atrial fibrillation. 10. History of cerebral infarct with right-sided residual hemiparesis and weakness. 11. Pseudomembranous colitis with Clostridium difficile associated diarrhea (resolving). 12. Hypertension. 13. Morbid obesity, status post gastric bypass surgery. 14. Voiding dysfunction with neurogenic bladder, status post suprapubic cystostomy placement. 15. Gait dysfunction. 16. Deconditioning. 17. Uncooperative behavior. 18. History of longstanding poor compliance and noncompliance. 19. Atrial fibrillation. 20. Hyperlipidemia. 21. History of chronic constipation. 22. 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 23. History of bilateral lower extremity lymphedema and venous stasis. 1. Clostridium difficile associated diarrhea and colitis with Clostridium difficile toxin and antigen positive. 2. Delirium. 3. Vascular dementia. 4. Toxic metabolic encephalopathy. 5. Behavioral disorder. 6. Episodic agitation and noncompliance with medication treatment, etc. 7. Normocytic anemia. 8. Anticoagulation-dependent atrial fibrillation. 9. History of cerebrovascular infarct with right residual hemiparesis. 10. Expressive aphasia, dysarthria and apraxia. 11. Normocytic anemia. 12. Acute kidney injury with underlying chronic kidney disease stage 3 A and B. 13. Normocytic anemia. 14. Hypertension. 15. Atrial fibrillation. 16. Hypokalemia. 17. Hypomagnesemia. 18. Acute exacerbation of delirium and vascular dementia. 19. Right ventricular dysfunction with cardiorenal syndrome. 20. History of dilated cardiomyopathy and systolic congestive heart failure. 21. Gait dysfunction. 22. Bilateral lower extremity venous lymphedema. 23. Morbid obesity, history of gastric bypass surgery. 24. Neurogenic bladder with voiding dysfunction, status post suprapubic cystostomy. 25. History of hyperlipidemia. 26. History of chronic constipation. 27. History of degenerative joint disease of the spine, knees and hips. 28. Morbid obesity. 1. Episodic agitation and restlessness with possible behavioral disorder. 2. History of cerebrovascular accident with right-sided hemiparesis. 3. Questionable and possible Clostridium difficile associated diarrhea. 4. Normocytic anemia. 5. History of Clostridium difficile colitis. 6. Hypokalemia. 7. Acute kidney injury (resolving). 8. Hypomagnesemia. 9. History of hypothyroidism. 10. Episodic agitation and restlessness, probably secondary to aphasia, apraxia and dysarthria. 11. Cholelithiasis. 12. Right renal cyst. 13. History of gastric bypass. 14. Prostatomegaly. 15. Voiding dysfunction status post suprapubic cystostomy. 16. Old right frontal infarct. 17. Microvascular ischemic disease of the brain. 18. Cerebral cortical atrophy of the brain. 19. Decreased high-density lipoprotein. 1. Questionable altered mental status with possible behavioral disorder with combative and aggressive behavior. 2. Questionable Clostridium difficile associated diarrhea. 3. Mild normocytic anemia. 4. Granulocytosis. 5. Hypokalemia. 6. Chronic kidney disease stage 3. 7. Status post suprapubic cystostomy. 8. Proteinuria. 9. Microscopic hematuria, pyuria, bacteriuria. 10. History of left-sided cerebral cortical infarct with right hemiparesis. 11. Cardiomegaly. 12. Dilated cardiomyopathy. 13. Pulmonary hypertension. 14. Bilateral lower extremity venous stasis and lymphedema. 15. Deconditioning. 16. Gait dysfunction. 17. Morbid obesity. 18. Atrial fibrillation. 19. Expressive aphasia, dysarthria, apraxia. 20. Hypertension. 21. History of anxiety. 22. Hyperlipidemia. 23. Coumadin-dependent atrial fibrillation. 24. Hypovitaminosis D. 25. History of hypothyroidism. 26. History of constipation, history of hypokalemia, history of prostatic hypertrophy. 27. History of noncompliance. PLAN: At this time, the patient has been ordered again physical therapy, occupational, and ambulation therapy. As mentioned yesterday, the patient will be continued on therapeutic intervention as per the MAR of today, which was reviewed. In addition, as mentioned before, the patient and the patient's family is looking for the patient to be placed in a long-term facility and detention placement as the patient's family including the is unable to take care of the patient. The patient will be continued on the above therapeutic intervention. Dictated and electronically signed, not read. Rashad Brown MD [facility]
[2018-07-14] MEDS: Nystatin 100,000 Units/gm Topical Pow(15 gm) TOP SCH ×2 (10:15→18:16)
[2018-07-14] MEDS: Divalproex 125 mg EC Sprinkle Cap PO SCH ×3 (12:09→18:10)
[2018-07-14] MEDS: Ammonium Lactate 12% Lotion (225 g) EXT SCH ×3 (12:09→18:15)
--- NOTE | 2018-07-14 12:57 | PN ---
UROLOGY PROGRESS NOTE DATE: 07/11/2018 Please see the admission note from 07/08/2018 and the operative note from 07/09/2018, and the progress note from 07/10/2018. SUBJECTIVE: Mr. Damon is currently resting comfortably. The suprapubic catheter is draining much better than previously noted. The patient is currently resting comfortably in his bed. Past medical and surgical, no other changes. Physical exam, no major changes. DIAGNOSES: 1. Aphasia. 2. Cerebrovascular accident. 3. Multiple medical problems. PLAN: For this, we are beginning to processing. I signed off some paperwork insisting the patient to get to a facilitated home. There is no way to discharge the patient at this point. Every time he has been discharged, he has been back in the hospital within a day or two, sometimes even way less than 24 hours. So at this time, we are going to keep him in the hospital until . From an urology standpoint, he was brought in with a catheter that was leaking. For no obvious reason simply put in a larger bore, 16-Cuban and we readjusted it, inflated the balloon nicely. The original catheter was in place, but we made a few minor adjustments. Since we have done this, the catheter has been working much better. So the plan for now is just to leave the 16-Cuban in and I explained this to the that at some point we will get to an 18 or 20, but for now, we will leave in the 16. So the urology plans have not changed, we are going to keep the suprapubic, its draining well. We are going to wait social work involvement in trying to help the and the family find placement. Jae Nance MD
[2018-07-14] MEDS: Vancomycin 25 MG/ML PO SCH ×4 (12:58→21:16)
[2018-07-14] MEDS: Cholecalciferol 1,000 INTLU TAB PO SCH (12:58)
[2018-07-14] MEDS: Levothyroxine 25 MCG TAB PO SCH (13:06)
--- NOTE | 2018-07-14 15:49 | PN ---
UROLOGY PROGRESS NOTE DATE: 07/10/2018 Please see the admission from 07/08/2018, and see the operative note from 07/09/2018. The patient is a very pleasant gentleman. He is currently resting comfortably with an indwelling suprapubic catheter. Yesterday, we replaced it with a larger bore catheter. Today, we observing the patient since that time, the urine output has been very good. The catheter seems to be working better. I got a chance to speak to the , she is seemingly happier. She is also beginning to understand that from a social work standpoint, she is going to allow now further processing to get him to a [facility] care, because she is recognizing that she cannot do it by herself. With her family, son and [id number] . The remainder of past medical and surgical has otherwise no changes. Medications, allergies . PHYSICAL EXAMINATION: GENERAL: A well-nourished male. His suprapubic catheter is in good location, draining well. The remainder of the physical exam is otherwise unchanged. DIAGNOSES: Urinary retention, voiding dysfunction, gross hematuria, that is all now really resolved. With a better sized suprapubic catheter. PLAN: We plan for the followin. From an urology standpoint, we are going to maintain suprapubic catheter. 2. There is some paperwork that we are going to try to help fill out to assist the medical team and assisting the patient to get some kind of home care. We may ask for assistance from Dr. Brown in this regard who is more familiar with the patient's general medical condition and may be more familiar with him, but we will try to complete the paperwork as soon as possible to see if we can help the patient and the family towards making further progress. From an urology standpoint, the patient remains stable, suprapubic catheter is draining well, change every 4 to 6 weeks. Right now it is dilated up to 16-Gabonese, we are going to try to get it up to 20. Jae Nance MD
--- NOTE | 2018-07-15 09:59 | OP ---
PROCEDURE DATE: 07/09/2018 PREOPERATIVE DIAGNOSIS: Urinary retention, faulty suprapubic catheter. POSTOPERATIVE DIAGNOSIS: Urinary retention, faulty suprapubic catheter. PROCEDURE: Replacement of the cystostomy tube with a large bore catheter, and cystogram to confirm positioning. SURGEON: Jae Nance MD ESTIMATED BLOOD LOSS: Less than 10 mL. COMPLICATIONS: There were no complications. INDICATION: See history and physical and consultation. This is a very interesting gentleman who has multiple medical issues including CVA, vascular disease, aphasia, with a who was caring for and states that she cannot . He has been in and out of the hospital for several reasons over the last several weeks. All of these are well documented in the previous chart note. From Urology standpoint, he has urinary retention. We have discussed options including leaving the Sevilla catheter, but he is very uncomfortable with the catheter, . We discussed the options. We placed a 12-Tamazight Sevilla catheter. After doing this, the patient was able to have urine coming from the suprapubic catheter. On the 12-Tamazight small. There was no bleeding . He subsequently has some difficulty later with the skilled nursing. Then he has been readmitted now to irrigated the catheter gently, it irrigates well. Even before he was discharged home, he was discharged home with a catheter not working perfectly. But the issue is that is too fresh to change it, although we are doing it now and we are able to, but we are doing with anesthesia sedation. So we are going to bring him to the operating room to insert a new suprapubic. In the meantime, from a social standpoint, the patient is having tremendous difficulty, the is having difficulty taking care of him, moving from place to place. So, I admitted him and this case to my service and after discussing options with the , he is here now for the above listed procedure. See the further progress note and admission history and physical for details. Today, he is here now for the above listed procedure which is a removal and insertion of cystostomy tube with the dilation of the tract up to 16 Tamazight if we are able to and a cystogram. PROCEDURE ITSELF: After obtaining informed consent, the patient was placed on the table, routine monitors were placed. Timeout was called. We confirmed the positioning. We removed the old Sevilla catheter and under sterile technique, we inserted a new Sevilla catheter suprapubically. We were able to get 15-Tamazight with reasonable ease. There was some bleeding noted at the entrance site secondary to blood thinner, but no major urinary bleeding. We have cleaned off it nicely. ____ sterile fashion. We confirmed our positioning with fluoroscopic imaging. It drained well and irrigated well. Pretty much in good position and is a larger bore tube. It secured in place. Patient tolerated without any complication. I am going to make a definite note. We did not put a Sevilla in, as his requested us to do almost anything, but put a Sevilla, and then we . Then I told her we will do our best. We were able to get a 16-Tamazight in. We took the large bore catheter and secured in place. The patient tolerated without complication. Jae Nance MD
--- NOTE | 2018-07-15 10:00 | PN ---
DATE: 07/14/2018 SUBJECTIVE: The patient is seen in room 576, bed 1. In the last 24 hours, the patient's nurses' notes were reviewed. The patient was found to be agitated, confused, combative, attempted to climb out of the bed. The patient was placed on one-to-one by the emergency medical services coordinator on-call. The patient required overnight Ativan injection and also during the day yesterday, the patient required Ativan injections for his behavior and agitation and combative behavior and climbing out of bed. The patient is in room 576, bed 1. PHYSICAL EXAMINATION: VITAL SIGNS: T-max 98.3, pulse 88-97, blood pressure 174/ . HEENT: . LUNGS: . Questionable decreased breath sound at the bases, left more than the right. CARDIOVASCULAR: . GENITALIA: Male. RECTAL: Deferred. EXTREMITIES: Show chronic skin changes of the lower extremity. MUSCULOSKELETAL: Shows an elevated body mass index. NEUROLOGIC: The patient is alert, awake, responsive . The patient has weakness of the right upper and lower extremities. Gait examination could not be tested. DIAGNOSTIC DATA: From 07/13/2018 was reviewed. WBC 6.7, hemoglobin/hematocrit 14.8/43.8, platelets 151. Sodium 138, potassium 4.1, chloride 103, CO2 of 27, BUN 20, creatinine 1.5, glucose 104, calcium 8.7, phosphorus 3.5, magnesium 1.8. LFTs are within normal limits. The patient seen and evaluated. IMPRESSION: 1. Suprapubic cystostomy tube malfunction. 2. Status post revision and replacement of the suprapubic cystostomy. 3. Voiding dysfunction. 4. Urinary incontinence and urinary retention. 5. Behavioral disorders with episodes of agitation, restlessness, combative behavior. 6. Cerebral infarct with right-sided paresis. 7. Dysarthria, expressive aphasia, and apraxia. 8. Poor compliance and noncompliance. 9. Hypertension. 10. Anticoagulation-dependent atrial fibrillation. 11. Morbid obesity. 12. History of bilateral lower extremity lymphedema and venous stasis. 13. Gait dysfunction. 14. Deconditioning. 15. Morbid obesity. 16. Hyperlipidemia. 17. Hypothyroidism. 18. History of gastric bypass surgery. 19. Degenerative joint disease of the spine, knees, and hips. 20. History of constipation. 21. Clostridium difficile-associated diarrhea and pseudomembranous colitis (resolving). 1. Behavioral disorder with episodes of agitation, confusion, combativeness. 2. Suprapubic cystostomy malfunction and dysfunction. 3. Status post suprapubic cystostomy revision with placement of the new 16-Ivorian two-way suprapubic cystostomy. 4. Urinary retention and incontinence. 5. Voiding dysfunction. 6. Hypertension. 7. Atrial fibrillation. 8. Morbid obesity with elevated body mass index of 47. 9. History of cerebral infarct with right-sided paresis. 10. Dysarthria, apraxia, expressive aphasia. 11. Chronic kidney disease stage 3. 12. Hyperbilirubinemia. 13. Morbid obesity. 14. History of bilateral lower extremity lymphedema and venous stasis. 15. Gait dysfunction. 16. Deconditioning. 17. Behavioral disorder. 18. Anticoagulation-dependent atrial fibrillation. 19. Hyperlipidemia. 20. History of hypothyroidism, history of hypovitaminosis D, history of anxiety disorder. 21. History of clostridium difficile associated diarrhea and pseudomembranous colitis (resolving). 1. Status post revision of the suprapubic cystostomy with placement of 16-Ivorian two-way suprapubic cystostomy. 2. Voiding dysfunction. 3. Neurogenic bladder. 4. Behavioral disorder with episodes of screaming, agitation and yelling. 5. Episodic confusion. 6. History of cerebral infarct with right-sided residual hemiparesis. 7. Morbid obesity. 8. History of anticoagulation requiring atrial fibrillation. 9. Dilated cardiomyopathy. 10. Pulmonary hypertension. 11. History of gastric bypass surgery. 12. Status post suprapubic cystostomy placement. 13. Urinary incontinence, urinary retention and voiding dysfunction. 14. Bilateral lower extremity lymphedema with history of MRSA cellulitis of the bilateral lower extremities venous stasis ulceration. 15. Morbid obesity. 16. Hypertension. 17. Elevated body mass index. 18. Gait dysfunction. 19. Longstanding history of noncompliance and poor compliance. 20. History of hypertension, hyperlipidemia, hypothyroidism. 1. Suprapubic cystostomy malfunction. 2. Status post revision and placement of 16-Ivorian two-way suprapubic cystostomy tube placement. 3. Voiding dysfunction. 4. Neurogenic bladder. 5. Urinary incontinence. 6. Behavioral disorder with agitation and screaming behavior. 7. History of cerebral infarct with right-sided residual weakness and hemiparesis. 8. Anticoagulation-dependent atrial fibrillation. 9. Morbid obesity. 10. Hypertension. 11. . 12. Morbid obesity, status post gastric bypass surgery. 13. Cardiomyopathy. 14. Hypothyroidism. 15. Expressive aphasia, dysarthria and apraxia. 16. Gait dysfunction. 17. Deconditioning. 18. Bilateral lower extremity lymphedema and venous stasis. 19. 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 20. History of constipation. 21. Clostridium deficit associated diarrhea and pseudomembranous colitis (resolving versus resolved). 23. Hyperlipidemia. 24. Hypothyroidism. 1. Suprapubic cystostomy malfunction and dysfunction. 2. Status post suprapubic cystostomy catheter change with 16-Ivorian two-way suprapubic cystostomy placement. 3. Gait dysfunction. 4. Deconditioning. 5. Morbid obesity. 6. History of cerebral infarct with residual right-sided weakness. 7. Expressive aphasia, apraxia, and dysarthria. 8. Longstanding chronic noncompliance and poor compliance. 9. Anticoagulation-dependent atrial fibrillation. 10. Cardiomyopathy. 11. Pulmonary hypertension. 12. Hypothyroidism. 13. Bilateral lower extremity lymphedema with history of venous stasis ulceration of the lower extremity. 14. Degenerative joint disease of the spine, hips, and knees. 15. Voiding dysfunction. 16. Possible neurogenic bladder. 17. History of constipation. 18. Clostridium difficile associated diarrhea and pseudomembranous colitis, presently on p.o. Vancocin. 19. History of dilated cardiomyopathy and systolic congestive heart failure. 20. Hyperlipidemia. 21. Hypertension. 1. Suprapubic cystostomy malfunction. 2. Voiding dysfunction with urinary retention and urinary incontinence. 3. Hypertension. 4. Granulocytosis. 5. Anticoagulation dependent atrial fibrillation. 6. Chronic kidney disease stage 3. 7. Morbid obesity. 8. Deconditioning. 9. Gait dysfunction. 10. 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 11. Longstanding history of poor and noncompliance. 12. Behavioral disorder. 13. Chronic bilateral lower extremity lymphedema. 14. Hyperlipidemia. 15. Hypothyroidism. 16. Clostridium difficile associated diarrhea and pseudomembranous colitis and (resolved). 17. Hypovitaminosis D. 18. Questionable anxiety disorder. 19. History of constipation. 1. Suprapubic cystostomy malfunction with questionable urinary incontinence from the suprapubic catheter site. 2. Hypertension. 3. Gait dysfunction. 4. Granulocytosis. 5. Chronic kidney disease, stage III. 6. Mild hyperbilirubinemia. 7. Morbid obesity. 8. History of cerebral infarct with residual right-sided weakness (almost resolved). 9. Clostridium difficile associated diarrhea with pseudomembranous colitis. 10. Behavioral disorder with agitation and combativeness. 11. Hypokalemia. 12. Anticoagulation requiring atrial fibrillation. 13. Hypothyroidism. 14. History of constipation. 15. Hypovitaminosis D. 16. Hyperlipidemia. 17. Questionable anxiety disorder. 1. Clostridium difficile associated diarrhea and pseudomembranous colitis (resolving). 2. Altered mental status with behavioral disorder with combative, aggressive behavior. 3. History of longstanding noncompliance. 4. Hypertension. 5. Deconditioning. 6. History of cerebral infarct with residual right-sided weakness (resolved). 7. Mild normocytic anemia. 8. Granulocytosis. 9. Anticoagulation-dependent atrial fibrillation. 10. Hypokalemia. 11. Status post acute kidney injury. 12. Mild hyperbilirubinemia. 13. Hypomagnesemia. 14. History of hypothyroidism. 15. History of hypovitaminosis D. 16. History of hyperlipidemia. 17. Proteinuria, hematuria, pyuria, bacteriuria. 18. Gait dysfunction. 19. History of bilateral lower extremity lymphedema and bilateral lower extremity venous stasis. 20. 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 21. Cholelithiasis. 22. Anterior abdominal wall muscular atrophy. 23. Incidental finding of cholelithiasis. 24. Morbid obesity. 25. Cardiomyopathy. 26. Pulmonary hypertension. 1. Persistent behavioral disorder with continuous and intermittent screaming and yelling and agitation. 2. Vascular type dementia and delirium. 3. Status post acute kidney injury (resolved). 4. Hypertension. 5. Hypokalemia. 6. Hypomagnesemia. 7. Chronic kidney disease stage III. 8. Anticoagulation requiring atrial fibrillation. 9. Mild normocytic anemia. 10. Granulocytosis. 11. History of hypothyroidism. 12. History of cardiomyopathy. 13. Longstanding history of poor compliance and noncompliance. 14. Gait dysfunction. 15. Proteinuria, microscopic hematuria, pyuria, bacteriuria. 16. Clostridium difficile associated diarrhea and pseudomembranous colitis. 17. Deconditioning. 18. Morbid obesity. 19. Voiding dysfunction and neurogenic bladder with status post suprapubic cystostomy. 20. Anticoagulation requiring atrial fibrillation. 21. Hyperlipidemia. 22. Hypothyroidism. 23. Hypovitaminosis D. 24. Agitation and combative behavior. 25. Vascular dementia with delirium. 1. Delirium versus possible vascular dementia. 2. Behavioral disorder, probably secondary to cerebral infarct. 3. Extremely poor compliance and noncompliance with history of longstanding noncompliance and poor compliance. 4. Gait dysfunction. 5. Morbid obesity. 6. History of cerebral infarct with right-sided residual hemiparesis and weakness. 7. Expressive aphasia, dysarthria, apraxia. 8. Extremely poor compliance with refusing to take medications, refusing to do physical therapy, refusing to be out of bed to chair. 9. Normocytic anemia. 10. Anticoagulation requiring atrial fibrillation. 11. Morbid obesity, status post gastric bypass surgery. 12. Neurogenic bladder and voiding dysfunction with status post suprapubic cystostomy placement. 13. Mild hypoalbuminemia. 14. Status post acute kidney injury. 15. Congestive heart failure. 16. Pulmonary hypertension. 17. Bilateral lower extremity lymphedema and venous stasis of the lower extremity. 18. Hyperlipidemia. 19. Hypertension. 20. Hypothyroidism. 21. Voiding dysfunction. 1. Severe behavioral disorder. 2. Agitated and combative behavior. 3. Delirium. 4. Vascular dementia. 5. Severe cerebral cortical atrophy and chronic microvascular ischemic disease of the brain on MRI of the brain. 6. Gait dysfunction. 7. Deconditioning. 8. Status post acute kidney injury. 9. Anticoagulation-dependent atrial fibrillation. 10. History of cerebral infarct with right-sided residual hemiparesis and weakness. 11. Pseudomembranous colitis with Clostridium difficile associated diarrhea (resolving). 12. Hypertension. 13. Morbid obesity, status post gastric bypass surgery. 14. Voiding dysfunction with neurogenic bladder, status post suprapubic cystostomy placement. 15. Gait dysfunction. 16. Deconditioning. 17. Uncooperative behavior. 18. History of longstanding poor compliance and noncompliance. 19. Atrial fibrillation. 20. Hyperlipidemia. 21. History of chronic constipation. 22. 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 23. History of bilateral lower extremity lymphedema and venous stasis. 1. Clostridium difficile associated diarrhea and colitis with Clostridium difficile toxin and antigen positive. 2. Delirium. 3. Vascular dementia. 4. Toxic metabolic encephalopathy. 5. Behavioral disorder. 6. Episodic agitation and noncompliance with medication treatment, etc. 7. Normocytic anemia. 8. Anticoagulation-dependent atrial fibrillation. 9. History of cerebrovascular infarct with right residual hemiparesis. 10. Expressive aphasia, dysarthria and apraxia. 11. Normocytic anemia. 12. Acute kidney injury with underlying chronic kidney disease stage 3 A and B. 13. Normocytic anemia. 14. Hypertension. 15. Atrial fibrillation. 16. Hypokalemia. 17. Hypomagnesemia. 18. Acute exacerbation of delirium and vascular dementia. 19. Right ventricular dysfunction with cardiorenal syndrome. 20. History of dilated cardiomyopathy and systolic congestive heart failure. 21. Gait dysfunction. 22. Bilateral lower extremity venous lymphedema. 23. Morbid obesity, history of gastric bypass surgery. 24. Neurogenic bladder with voiding dysfunction, status post suprapubic cystostomy. 25. History of hyperlipidemia. 26. History of chronic constipation. 27. History of degenerative joint disease of the spine, knees and hips. 28. Morbid obesity. 1. Episodic agitation and restlessness with possible behavioral disorder. 2. History of cerebrovascular accident with right-sided hemiparesis. 3. Questionable and possible Clostridium difficile associated diarrhea. 4. Normocytic anemia. 5. History of Clostridium difficile colitis. 6. Hypokalemia. 7. Acute kidney injury (resolving). 8. Hypomagnesemia. 9. History of hypothyroidism. 10. Episodic agitation and restlessness, probably secondary to aphasia, apraxia and dysarthria. 11. Cholelithiasis. 12. Right renal cyst. 13. History of gastric bypass. 14. Prostatomegaly. 15. Voiding dysfunction status post suprapubic cystostomy. 16. Old right frontal infarct. 17. Microvascular ischemic disease of the brain. 18. Cerebral cortical atrophy of the brain. 19. Decreased high-density lipoprotein. 1. Questionable altered mental status with possible behavioral disorder with combative and aggressive behavior. 2. Questionable Clostridium difficile associated diarrhea. 3. Mild normocytic anemia. 4. Granulocytosis. 5. Hypokalemia. 6. Chronic kidney disease stage 3. 7. Status post suprapubic cystostomy. 8. Proteinuria. 9. Microscopic hematuria, pyuria, bacteriuria. 10. History of left-sided cerebral cortical infarct with right hemiparesis. 11. Cardiomegaly. 12. Dilated cardiomyopathy. 13. Pulmonary hypertension. 14. Bilateral lower extremity venous stasis and lymphedema. 15. Deconditioning. 16. Gait dysfunction. 17. Morbid obesity. 18. Atrial fibrillation. 19. Expressive aphasia, dysarthria, apraxia. 20. Hypertension. 21. History of anxiety. 22. Hyperlipidemia. 23. Coumadin-dependent atrial fibrillation. 24. Hypovitaminosis D. 25. History of hypothyroidism. 26. History of constipation, history of hypokalemia, history of prostatic hypertrophy. 27. History of noncompliance. PLAN: At this time, the patient is awaiting for alf long-term placement, which has been requested by the patient's family including the patient's . At present, the patient will be continued on the medications as per the MAR of today. The patient has been ordered physical therapy, occupational therapy, and out of bed, but the patient has not been cooperative with physical therapy and occupational therapy, that is why the patient is not undergoing physical therapy and occupational therapy because the patient has been agitated and combative towards the physical therapist and occupational therapist. Dictated and electronically signed, not read. Rashad Brown MD MTDD
[2018-07-15] MEDS: Divalproex 125 mg EC Sprinkle Cap PO SCH ×2 (11:39→19:01)
[2018-07-15] MEDS: Levothyroxine 25 MCG TAB PO SCH (11:41)
[2018-07-15] MEDS: Vancomycin 25 MG/ML PO SCH ×4 (11:41→21:57)
[2018-07-15] MEDS: Cholecalciferol 1,000 INTLU TAB PO SCH (11:42)
[2018-07-15] MEDS: MEROPENEM 500 MG in NS 500 MG/50 ML BAG IVPB SCH (15:00)
--- NOTE | 2018-07-15 15:07 | PN ---
DATE: 07/15/2018 SUBJECTIVE: The patient is seen in in room 576, bed 1. Overnight nurse's notes were reviewed. The patient was found to be agitated, combative, yelling, screaming. Overnight, the patient required Geodon IM. The patient required Ativan IM to control the patient's yelling, screaming, agitated and combative behavior. The patient was taken of one-o-one yesterday, but the patient's pattern of aggression, combative behavior, yelling, screaming has continued requiring parenteral Ativan, Geodon, Xanax etc. PHYSICAL EXAMINATION: VITAL SIGNS: T-max 98.7, pulse 63-72, blood pressure 123/74, 132/103, respirations 20, O2 sat 98%. HEENT: Normocephalic, atraumatic. HEENT examination shows pinkish conjunctivae. Dry oral mucosa. No neck rigidity. CHEST: Kyphosis. LUNGS: Shows no audible rales, crackles or wheezing. Questionable decreased breath sounds at the bases, left more than the right. CARDIOVASCULAR: S1, S2, irregular rhythm. Positive systolic murmur, right second intercostal space, left second intercostal space. ABDOMEN: Obese. Positive bowel sounds, positive suprapubic cystostomy. GENITALIA: Male. RECTAL: Deferred. EXTREMITIES: Shows chronic skin changes on the lymphedema of the lower extremity. The patient refuses to have SCDs placed. MUSCULOSKELETAL: Elevated as per the body mass index. NEUROLOGIC: The patient is awake, responsive. Positive right-sided weakness secondary to the cerebral infarct. The patient has dysarthria, apraxia and expressive aphasia. Gait examination is not tested. Motor strength of the left side is 5/5. The patient's motor strength of the right upper and lower extremity is 4+/5. DIAGNOSTICS: Urine test which was ordered by the Urology shows gram-negative rods and yeast. IMPRESSION AND PLAN: 1. Severe behavioral disorders with continued episodes of agitation, combativeness and yelling and screaming and severe behavior disorder. 2. Gram-negative ankita and yeast urinary tract infection and funguria. 3. Voiding dysfunction. 4. Suprapubic cystostomy malfunction and dysfunction, status post revision of the suprapubic cystostomy. 5. Neurogenic bladder. 6. History of cerebral infarct with right-sided paresis. 7. Expressive aphasia, dysarthria and apraxia. 8. Anticoagulation-dependent atrial fibrillation. 9. Congestive heart failure and dilated cardiomyopathy. 10. Pulmonary hypertension. 11. History of gastric bypass surgery. 12. Suprapubic cystostomy. 13. Clostridium difficile-associated diarrhea and pseudomembranous colitis (resolved). 14. Lower extremity lymphedema and venous stasis ulceration. 15. Morbid obesity. 16. Gait dysfunction. 17. Deconditioning. 18. Right hemiparesis. 20. History of constipation. 21. Degenerative joint disease of the spine, hips, knees. 22. History of longstanding noncompliance and poor compliance. 1. Suprapubic cystostomy tube malfunction. 2. Status post revision and replacement of the suprapubic cystostomy. 3. Voiding dysfunction. 4. Urinary incontinence and urinary retention. 5. Behavioral disorders with episodes of agitation, restlessness, combative behavior. 6. Cerebral infarct with right-sided paresis. 7. Dysarthria, expressive aphasia, and apraxia. 8. Poor compliance and noncompliance. 9. Hypertension. 10. Anticoagulation-dependent atrial fibrillation. 11. Morbid obesity. 12. History of bilateral lower extremity lymphedema and venous stasis. 13. Gait dysfunction. 14. Deconditioning. 15. Morbid obesity. 16. Hyperlipidemia. 17. Hypothyroidism. 18. History of gastric bypass surgery. 19. Degenerative joint disease of the spine, knees, and hips. 20. History of constipation. 21. Clostridium difficile-associated diarrhea and pseudomembranous colitis (resolving). 1. Behavioral disorder with episodes of agitation, confusion, combativeness. 2. Suprapubic cystostomy malfunction and dysfunction. 3. Status post suprapubic cystostomy revision with placement of the new 16-Occitan two-way suprapubic cystostomy. 4. Urinary retention and incontinence. 5. Voiding dysfunction. 6. Hypertension. 7. Atrial fibrillation. 8. Morbid obesity with elevated body mass index of 47. 9. History of cerebral infarct with right-sided paresis. 10. Dysarthria, apraxia, expressive aphasia. 11. Chronic kidney disease stage 3. 12. Hyperbilirubinemia. 13. Morbid obesity. 14. History of bilateral lower extremity lymphedema and venous stasis. 15. Gait dysfunction. 16. Deconditioning. 17. Behavioral disorder. 18. Anticoagulation-dependent atrial fibrillation. 19. Hyperlipidemia. 20. History of hypothyroidism, history of hypovitaminosis D, history of anxiety disorder. 21. History of clostridium difficile associated diarrhea and pseudomembranous colitis (resolving). 1. Status post revision of the suprapubic cystostomy with placement of 16-Occitan two-way suprapubic cystostomy. 2. Voiding dysfunction. 3. Neurogenic bladder. 4. Behavioral disorder with episodes of screaming, agitation and yelling. 5. Episodic confusion. 6. History of cerebral infarct with right-sided residual hemiparesis. 7. Morbid obesity. 8. History of anticoagulation requiring atrial fibrillation. 9. Dilated cardiomyopathy. 10. Pulmonary hypertension. 11. History of gastric bypass surgery. 12. Status post suprapubic cystostomy placement. 13. Urinary incontinence, urinary retention and voiding dysfunction. 14. Bilateral lower extremity lymphedema with history of MRSA cellulitis of the bilateral lower extremities venous stasis ulceration. 15. Morbid obesity. 16. Hypertension. 17. Elevated body mass index. 18. Gait dysfunction. 19. Longstanding history of noncompliance and poor compliance. 20. History of hypertension, hyperlipidemia, hypothyroidism. 1. Suprapubic cystostomy malfunction. 2. Status post revision and placement of 16-Occitan two-way suprapubic cystostomy tube placement. 3. Voiding dysfunction. 4. Neurogenic bladder. 5. Urinary incontinence. 6. Behavioral disorder with agitation and screaming behavior. 7. History of cerebral infarct with right-sided residual weakness and hemiparesis. 8. Anticoagulation-dependent atrial fibrillation. 9. Morbid obesity. 10. Hypertension. 11. . 12. Morbid obesity, status post gastric bypass surgery. 13. Cardiomyopathy. 14. Hypothyroidism. 15. Expressive aphasia, dysarthria and apraxia. 16. Gait dysfunction. 17. Deconditioning. 18. Bilateral lower extremity lymphedema and venous stasis. 19. 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 20. History of constipation. 21. Clostridium deficit associated diarrhea and pseudomembranous colitis (resolving versus resolved). 23. Hyperlipidemia. 24. Hypothyroidism. 1. Suprapubic cystostomy malfunction and dysfunction. 2. Status post suprapubic cystostomy catheter change with 16-Occitan two-way suprapubic cystostomy placement. 3. Gait dysfunction. 4. Deconditioning. 5. Morbid obesity. 6. History of cerebral infarct with residual right-sided weakness. 7. Expressive aphasia, apraxia, and dysarthria. 8. Longstanding chronic noncompliance and poor compliance. 9. Anticoagulation-dependent atrial fibrillation. 10. Cardiomyopathy. 11. Pulmonary hypertension. 12. Hypothyroidism. 13. Bilateral lower extremity lymphedema with history of venous stasis ulceration of the lower extremity. 14. Degenerative joint disease of the spine, hips, and knees. 15. Voiding dysfunction. 16. Possible neurogenic bladder. 17. History of constipation. 18. Clostridium difficile associated diarrhea and pseudomembranous colitis, presently on p.o. Vancocin. 19. History of dilated cardiomyopathy and systolic congestive heart failure. 20. Hyperlipidemia. 21. Hypertension. 1. Suprapubic cystostomy malfunction. 2. Voiding dysfunction with urinary retention and urinary incontinence. 3. Hypertension. 4. Granulocytosis. 5. Anticoagulation dependent atrial fibrillation. 6. Chronic kidney disease stage 3. 7. Morbid obesity. 8. Deconditioning. 9. Gait dysfunction. 10. 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 11. Longstanding history of poor and noncompliance. 12. Behavioral disorder. 13. Chronic bilateral lower extremity lymphedema. 14. Hyperlipidemia. 15. Hypothyroidism. 16. Clostridium difficile associated diarrhea and pseudomembranous colitis and (resolved). 17. Hypovitaminosis D. 18. Questionable anxiety disorder. 19. History of constipation. 1. Suprapubic cystostomy malfunction with questionable urinary incontinence from the suprapubic catheter site. 2. Hypertension. 3. Gait dysfunction. 4. Granulocytosis. 5. Chronic kidney disease, stage III. 6. Mild hyperbilirubinemia. 7. Morbid obesity. 8. History of cerebral infarct with residual right-sided weakness (almost resolved). 9. Clostridium difficile associated diarrhea with pseudomembranous colitis. 10. Behavioral disorder with agitation and combativeness. 11. Hypokalemia. 12. Anticoagulation requiring atrial fibrillation. 13. Hypothyroidism. 14. History of constipation. 15. Hypovitaminosis D. 16. Hyperlipidemia. 17. Questionable anxiety disorder. 1. Clostridium difficile associated diarrhea and pseudomembranous colitis (resolving). 2. Altered mental status with behavioral disorder with combative, aggressive behavior. 3. History of longstanding noncompliance. 4. Hypertension. 5. Deconditioning. 6. History of cerebral infarct with residual right-sided weakness (resolved). 7. Mild normocytic anemia. 8. Granulocytosis. 9. Anticoagulation-dependent atrial fibrillation. 10. Hypokalemia. 11. Status post acute kidney injury. 12. Mild hyperbilirubinemia. 13. Hypomagnesemia. 14. History of hypothyroidism. 15. History of hypovitaminosis D. 16. History of hyperlipidemia. 17. Proteinuria, hematuria, pyuria, bacteriuria. 18. Gait dysfunction. 19. History of bilateral lower extremity lymphedema and bilateral lower extremity venous stasis. 20. 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 21. Cholelithiasis. 22. Anterior abdominal wall muscular atrophy. 23. Incidental finding of cholelithiasis. 24. Morbid obesity. 25. Cardiomyopathy. 26. Pulmonary hypertension. 1. Persistent behavioral disorder with continuous and intermittent screaming and yelling and agitation. 2. Vascular type dementia and delirium. 3. Status post acute kidney injury (resolved). 4. Hypertension. 5. Hypokalemia. 6. Hypomagnesemia. 7. Chronic kidney disease stage III. 8. Anticoagulation requiring atrial fibrillation. 9. Mild normocytic anemia. 10. Granulocytosis. 11. History of hypothyroidism. 12. History of cardiomyopathy. 13. Longstanding history of poor compliance and noncompliance. 14. Gait dysfunction. 15. Proteinuria, microscopic hematuria, pyuria, bacteriuria. 16. Clostridium difficile associated diarrhea and pseudomembranous colitis. 17. Deconditioning. 18. Morbid obesity. 19. Voiding dysfunction and neurogenic bladder with status post suprapubic cystostomy. 20. Anticoagulation requiring atrial fibrillation. 21. Hyperlipidemia. 22. Hypothyroidism. 23. Hypovitaminosis D. 24. Agitation and combative behavior. 25. Vascular dementia with delirium. 1. Delirium versus possible vascular dementia. 2. Behavioral disorder, probably secondary to cerebral infarct. 3. Extremely poor compliance and noncompliance with history of longstanding noncompliance and poor compliance. 4. Gait dysfunction. 5. Morbid obesity. 6. History of cerebral infarct with right-sided residual hemiparesis and weakness. 7. Expressive aphasia, dysarthria, apraxia. 8. Extremely poor compliance with refusing to take medications, refusing to do physical therapy, refusing to be out of bed to chair. 9. Normocytic anemia. 10. Anticoagulation requiring atrial fibrillation. 11. Morbid obesity, status post gastric bypass surgery. 12. Neurogenic bladder and voiding dysfunction with status post suprapubic cystostomy placement. 13. Mild hypoalbuminemia. 14. Status post acute kidney injury. 15. Congestive heart failure. 16. Pulmonary hypertension. 17. Bilateral lower extremity lymphedema and venous stasis of the lower extremity. 18. Hyperlipidemia. 19. Hypertension. 20. Hypothyroidism. 21. Voiding dysfunction. 1. Severe behavioral disorder. 2. Agitated and combative behavior. 3. Delirium. 4. Vascular dementia. 5. Severe cerebral cortical atrophy and chronic microvascular ischemic disease of the brain on MRI of the brain. 6. Gait dysfunction. 7. Deconditioning. 8. Status post acute kidney injury. 9. Anticoagulation-dependent atrial fibrillation. 10. History of cerebral infarct with right-sided residual hemiparesis and weakness. 11. Pseudomembranous colitis with Clostridium difficile associated diarrhea (resolving). 12. Hypertension. 13. Morbid obesity, status post gastric bypass surgery. 14. Voiding dysfunction with neurogenic bladder, status post suprapubic cystostomy placement. 15. Gait dysfunction. 16. Deconditioning. 17. Uncooperative behavior. 18. History of longstanding poor compliance and noncompliance. 19. Atrial fibrillation. 20. Hyperlipidemia. 21. History of chronic constipation. 22. 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 23. History of bilateral lower extremity lymphedema and venous stasis. 1. Clostridium difficile associated diarrhea and colitis with Clostridium difficile toxin and antigen positive. 2. Delirium. 3. Vascular dementia. 4. Toxic metabolic encephalopathy. 5. Behavioral disorder. 6. Episodic agitation and noncompliance with medication treatment, etc. 7. Normocytic anemia. 8. Anticoagulation-dependent atrial fibrillation. 9. History of cerebrovascular infarct with right residual hemiparesis. 10. Expressive aphasia, dysarthria and apraxia. 11. Normocytic anemia. 12. Acute kidney injury with underlying chronic kidney disease stage 3 A and B. 13. Normocytic anemia. 14. Hypertension. 15. Atrial fibrillation. 16. Hypokalemia. 17. Hypomagnesemia. 18. Acute exacerbation of delirium and vascular dementia. 19. Right ventricular dysfunction with cardiorenal syndrome. 20. History of dilated cardiomyopathy and systolic congestive heart failure. 21. Gait dysfunction. 22. Bilateral lower extremity venous lymphedema. 23. Morbid obesity, history of gastric bypass surgery. 24. Neurogenic bladder with voiding dysfunction, status post suprapubic cystostomy. 25. History of hyperlipidemia. 26. History of chronic constipation. 27. History of degenerative joint disease of the spine, knees and hips. 28. Morbid obesity. 1. Episodic agitation and restlessness with possible behavioral disorder. 2. History of cerebrovascular accident with right-sided hemiparesis. 3. Questionable and possible Clostridium difficile associated diarrhea. 4. Normocytic anemia. 5. History of Clostridium difficile colitis. 6. Hypokalemia. 7. Acute kidney injury (resolving). 8. Hypomagnesemia. 9. History of hypothyroidism. 10. Episodic agitation and restlessness, probably secondary to aphasia, apraxia and dysarthria. 11. Cholelithiasis. 12. Right renal cyst. 13. History of gastric bypass. 14. Prostatomegaly. 15. Voiding dysfunction status post suprapubic cystostomy. 16. Old right frontal infarct. 17. Microvascular ischemic disease of the brain. 18. Cerebral cortical atrophy of the brain. 19. Decreased high-density lipoprotein. 1. Questionable altered mental status with possible behavioral disorder with combative and aggressive behavior. 2. Questionable Clostridium difficile associated diarrhea. 3. Mild normocytic anemia. 4. Granulocytosis. 5. Hypokalemia. 6. Chronic kidney disease stage 3. 7. Status post suprapubic cystostomy. 8. Proteinuria. 9. Microscopic hematuria, pyuria, bacteriuria. 10. History of left-sided cerebral cortical infarct with right hemiparesis. 11. Cardiomegaly. 12. Dilated cardiomyopathy. 13. Pulmonary hypertension. 14. Bilateral lower extremity venous stasis and lymphedema. 15. Deconditioning. 16. Gait dysfunction. 17. Morbid obesity. 18. Atrial fibrillation. 19. Expressive aphasia, dysarthria, apraxia. 20. Hypertension. 21. History of anxiety. 22. Hyperlipidemia. 23. Coumadin-dependent atrial fibrillation. 24. Hypovitaminosis D. 25. History of hypothyroidism. 26. History of constipation, history of hypokalemia, history of prostatic hypertrophy. 27. History of noncompliance. PLAN: At this time, the patient with broad-spectrum IV antibiotics with meropenem 500 mg IV every 8 hours and 200 mg IV daily. Infectious Disease consultation has been requested for further management of gram-negative ankita urinary tract infection and yeast UTI and funguria. The patient will be continued on all the therapeutic intervention as per the MAR of today. The patient has been ordered physical therapy, occupational therapy, ambulation therapy, but due to the patient's behavior and aggressive and combative behavior, the patient is not undergoing physical therapy, occupational therapy and speech therapy. The patient has been counseled and has been told multiple times about the patient's clinical condition, poor compliance, aggressive behavior and noncompliance which has been explained to the patient's and the patient on multiple occasions during this hospitalization and multiple previous hospitalization and multiple office visits. At present, the patient is awaiting for a long-term placement and custodial placement as the patient requires 24 hours care and supervision. At present, we will await further recommendations by the infectious disease regarding the antibiotic recommendation, duration and need for antibiotic treatment for the urinary tract infection. Overall prognosis guarded. Dictated and electronically signed, not read. Rashad Brown MD MTDD
--- NOTE | 2018-07-15 16:16 | CP.PCM.CON ---
History of Present Illness - History of Present Illness History of Present Illness: 63 year old male with PMH of chronic systolic CHF with EF 25%, chronic atrial fibrillation, chronic lymphedema with chronic venous stasis, COPD, HTN, history of gastric bypass surgery, history of left knee surgery, right leg infected ve nous stasis ulcers, obstructive sleep apnea, right leg venous stasis ulcers history with previous growth of MRSA and Pseudomonas, history of CVA with residual aphasia came in to [facility] because of leaking suprapubic catheter and Urology has seen the patient and replaced the catheter. Urine cx were also sent showing MDR Klebsiella. Patient was previously treated for MDR Klebsiella with Avycaz on previous admission a month ago. He is currently having no fevers, no nausea, no diarrhea. Full ROS is unobtainable because of the patient's aphasia. Infectious Diseases consult is requested to further evaluate and manage. Review of Systems - Review of Systems All systems: reviewed and no additional remarkable complaints except (As per HPI ) Past Patient History - Infectious Disease Hx of Infectious Diseases: None - Tetanus Immunizations Tetanus Immunization: Unknown - Past Medical History & Family History Past Medical History?: Yes - Past Social History Smoking Status: Unknown If Ever Smoked - CARDIAC Hx Cardiac Disorders: Yes Hx Congestive Heart Failure: Yes Hx Hypertension: Yes - PULMONARY Hx Chronic Obstructive Pulmonary Disease (COPD): Yes - NEUROLOGICAL HX Cerebrovascular Accident: Yes (R sided weakness, expressive aphasia) - HEENT Hx HEENT Problems: Yes Other/Comment: Aphasia - RENAL Hx Chronic Kidney Disease: Yes - ENDOCRINE/METABOLIC Hx Endocrine Disorders: Yes Hx Hypothyroidism: Yes - HEMATOLOGICAL/ONCOLOGICAL Hx Blood Transfusions: Yes Hx Blood Transfusion Reaction: No - INTEGUMENTARY Hx Dermatological Problems: Yes (CELLULITIS TO LOWER EXTREMITY) Other/Comment: multiple bruise rue, ble dark brown discolored skin, multiple dry scratches and scabs ble, bruises to left knee and right knee and thigh, redness to b/l groin, under bad fold, brown discolored skin to lower abd b/l, suprapubic catheter intact lower abd, chronic lymphadema - MUSCULOSKELETAL/RHEUMATOLOGICAL Hx Arthritis: Yes - GASTROINTESTINAL Hx Gastroesophageal Reflux: Yes - GENITOURINARY/GYNECOLOGICAL Hx Genitourinary Disorders: Yes (pt currently has suprapubic cath) Hx Hematuria: Yes Hx Urinary Tract Infection: Yes Other/Comment: neurogenic bladder, retention - PSYCHIATRIC Hx Substance Use: No - SURGICAL HISTORY Hx Surgeries: Yes - ANESTHESIA Hx Anesthesia Reactions: No Hx Malignant Hyperthermia: No Meds Allergies/Adverse Reactions: Allergies Allergy/AdvReac Type Severity Reaction Status Date / Time No Known Allergies Allergy Verified 06/18/18 11:06 - Medications Medications: Current Medications Acetaminophen (Tylenol 325mg Tab) 650 mg PO Q6 PRN PRN Reason: TEMP>=99.5F Last Admin: 07/14/18 21:25 Dose: 650 mg Acetaminophen (Tylenol 650 Mg Supp) 650 mg RC Q6H PRN PRN Reason: TEMP>=99.5F Alprazolam (Xanax) 0.25 mg PO BID [facility]; Protocol Stop: 07/15/18 18:01 Last Admin: 07/14/18 18:13 Dose: 0.25 mg Alprazolam (Xanax) 0.25 mg PO HS [facility]; Protocol Stop: 07/15/18 22:01 Last Admin: 07/14/18 21:17 Dose: Not Given Apixaban (Eliquis) 2.5 mg PO BID [facility]; Protocol Last Admin: 07/14/18 18:10 Dose: 2.5 mg Aspirin (Aspirin Chewable) 81 mg PO DAILY [facility] Last Admin: 07/14/18 12:51 Dose: 81 mg Atorvastatin Calcium (Lipitor) 40 mg PO HS [facility] Last Admin: 07/15/18 07:13 Dose: Not Given Cholecalciferol (Vitamin D) 2,000 intlu PO DAILY [facility] Last Admin: 07/14/18 12:58 Dose: 2,000 intlu Diphenhydramine HCl (Benadryl) 25 mg PO Q8H PRN PRN Reason: Itching / Pruritus Last Admin: 07/15/18 05:50 Dose: 25 mg Divalproex Sodium (Depakote Sprinkles) 500 mg PO BID [facility]; Protocol Last Admin: 07/14/18 18:10 Dose: 500 mg Famotidine (Pepcid) 20 mg PO BID [facility] Last Admin: 07/14/18 18:12 Dose: 20 mg Heparin Sodium (Porcine) (Heparin) 5,000 units SC Q8 [facility]; Protocol Last Admin: 07/09/18 20:10 Dose: Not Given Fluconazole (Diflucan Iv 200 Mg/100 Ml Ns) 100 mls @ 100 mls/hr IVPB DAILY [facility]; Protocol Meropenem/Sodium Chloride (Merrem Iv 500 Mg/Ns 50 Ml) 500 mg in 50 mls @ 100 mls/hr IVPB Q12 [facility]; Protocol Stop: 07/19/18 22:29 Lactic Acid (Lac-Hydrin 12% Lotion (225 G)) 0 gm EXT BID [facility] Last Admin: 07/14/18 18:15 Dose: 1 applic Levothyroxine Sodium (Synthroid) 25 mcg PO ACB [facility] Last Admin: 07/14/18 13:06 Dose: 25 mcg Losartan Potassium (Cozaar) 50 mg PO DAILY [facility] Last Admin: 07/14/18 12:51 Dose: 50 mg Metoprolol Tartrate (Lopressor) 50 mg PO BID [facility] Last Admin: 07/14/18 18:11 Dose: 50 mg Nystatin (Nystop Topical Powder) 0 gm TOP BID [facility] Last Admin: 07/14/18 18:16 Dose: 1 applic Quetiapine Fumarate (Seroquel) 12.5 mg PO HS [facility]; Protocol Last Admin: 07/14/18 21:17 Dose: 12.5 mg Torsemide (Demadex) 5 mg PO DAILY [facility] Last Admin: 07/14/18 12:55 Dose: 5 mg Vancomycin HCl (Vancocin 25 Mg/Ml (Oral Use)) 250 mg PO QID [facility]; Protocol Last Admin: 07/14/18 21:16 Dose: 250 mg Physical Exam - Constitutional Appears: Chronically Ill - Head Exam Head Exam: NORMAL INSPECTION - Respiratory Exam Respiratory Exam: Decreased Breath Sounds - Cardiovascular Exam Cardiovascular Exam: +S1, +S2 - GI/Abdominal Exam GI & Abdominal Exam: Soft. absent: Tenderness Results - Vital Signs Recent Vital Signs: Last Vital Signs Temp 98.4 F 07/15/18 06:00 Pulse 68 07/15/18 06:00 Resp 20 07/15/18 06:00 BP 129/92 H 07/15/18 06:00 Pulse Ox 96 07/15/18 06:00 - Labs Result Diagrams: 07/13/18 14:30 07/13/18 16:00 Assessment & Plan - Assessment and Plan (Free Text) Plan: Assessment consider complicated UTI with multidrug-resistant Klebsiella and yeast in this patient with suprapubic Sevilla catheter use - just changed on this admission history of right leg infected venous stasis ulcers, with MRSA and Pseudomonas acute CVA with right sided weakness and residual aphasia S/P tPA infusion history of left lower extremity skin and skin structure infection with Klebsiella and MRSA in a patient with chronic venous stasis ulcers with no evidence of abscess or osteomyelitis on MRI, clinically improving Probable CHF exacerbation chronic systolic CHF with EF 25% chronic atrial fibrillation chronic lymphedema with chronic venous stasis COPD HTN history of gastric bypass surgery history of left knee surgery Plan will check to see if it is sensitive to Avycaz - will continue Merrem and Diflucan for now will repeat urine cx will monitor clinically
--- NOTE | 2018-07-15 16:42 | PCM.URO ---
Urology Progress Note - Objective Lab Studies: Reviewed (SEE PREVIOUS NOTE MAINTAIN SPT) Intake & Output: Intake & Output 07/14/18 07/15/18 07/15/18 18:59 06:59 18:59 Intake Total 920 Output Total 1450 Balance -530 Intake: Oral 920 Output: Urine 1050 Suprapubic 1050 Stool 400 Vital Signs: Vital Signs - 24 hr 07/14/18 07/14/18 07/15/18 18:11 22:45 06:00 Temperature 98.7 F 98.4 F Pulse Rate 63 72 68 Respiratory 20 20 Rate Blood Pressure 123/74 132/103 H 129/92 H O2 Sat by Pulse 98 96 Oximetry 07/15/18 07/15/18 07/15/18 11:38 11:40 14:00 Temperature 98.5 F Pulse Rate 69 69 82 Respiratory 18 Rate Blood Pressure 130/91 H 130/91 H 125/54 L O2 Sat by Pulse 100 Oximetry
[2018-07-15] MEDS: Fluconazole IV 200mg/100 ml NS 100 ML IVPB SCH (17:31)
[2018-07-15] MEDS: Ammonium Lactate 12% Lotion (225 g) EXT SCH ×2 (17:34→18:00)
[2018-07-15] MEDS: Nystatin 100,000 Units/gm Topical Pow(15 gm) TOP SCH ×2 (17:35→18:00)
[2018-07-15] MEDS: QUEtiapine 50 mg XR Tab PO SCH (17:59)
[2018-07-16] MEDS: MEROPENEM 500 MG in NS 500 MG/50 ML BAG IVPB SCH ×3 (00:20→10:04)
--- NOTE | 2018-07-16 08:35 | CON ---
DATE: 07/15/2018 CHIEF COMPLAINT: Agitation and confusion. HISTORY OF PRESENT ILLNESS: A 63-year-old man with past medical history of chronic systolic CHF with an ejection fraction of 25%, chronic AFib, chronic lymphedema with chronic venous stasis, COPD, hypertension, history of gastric bypass, history of left knee surgery, history of right infected left venous stasis ulcers, obstructive sleep apnea, right venous leg ulcers with previous growth of MRSA and pseudomonas in the past, history of left MCA/CVA with residual aphasia and right-sided weakness, who came in for leaking suprapubic catheter and found to have urine cultures showing multi-drug resistant Klebsiella and pneumonia and is on antibiotics per ID, was called for agitation, and the patient screaming round the clock and oriented to self, but not place or year. He has poor attention span, and he is very agitated. He does have features of vascular dementia with behavioral disturbance. He is on low-dose Seroquel, recommend to increase the Seroquel from 12.5 to 25 mg p.o. at bedtime, Geodon round the clock in addition to Xanax. He is on Depakote sprinkles 500 mg p.o. b.i.d. for underlying behavioral disturbance. In addition, this helped him for seizure threshold and agitated behavior. PAST MEDICAL HISTORY: As above. PAST SURGICAL HISTORY: Lap bandage surgery and left shoulder surgery. MEDICATIONS: Reviewed by nurse's reconciliation sheet. ALLERGIES: NO KNOWN DRUG ALLERGIES. SOCIAL HISTORY: No illicit drug use, smoking, or EtOH abuse. REVIEW OF SYSTEMS: A 14-point review of systems as per History of Present Illness. FAMILY HISTORY: Noncontributory. LABORATORY DATA: Sodium 138, potassium 4.1, chloride 103, carbon dioxide 27, BUN of 20, creatinine 1. Random glucose of 104. PHYSICAL EXAMINATION: VITAL SIGNS: Temperature is afebrile, pulse rate of 80, blood pressure 124/54, respiratory rate 18, and oxygen saturation 95% on room air. GENERAL: The patient is lying in bed, agitated, moving all extremities. HEENT: Atraumatic, normocephalic. PERRLA. Extraocular muscles intact. NECK: Supple. No JVD. No adenopathy noted. LUNGS: Decreased breath sounds bilaterally. No adventitious sounds. HEART: S1 and S2. Normal rate and rhythm. No murmurs, rubs, or gallops. ABDOMEN: Soft, nontender, and nondistended. Bowel sounds are heard. EXTREMITIES: There are chronic venous stasis changes and is morbidly obese and some pressure ulcers seen on the legs. NEUROLOGICAL: The patient is alert, but agitated, follows even simple commands with hand gestures. Speech has residual aphasia from prior CVA. Cranial nerves II through XII intact. Motor: Residual right-sided spastic weakness from prior CVA. Left side is intact. Toes are downgoing. Sensory: Decreased light touch and pinprick up to calves bilaterally. DTRs are 2+ throughout and 1 in both knees and ankles. Coordination and gait deferred for now due to the patient not being cooperative . IMPRESSION AND PLAN: A 63-year-old man with a past medical history of left end-stage cerebrovascular accident with residual aphasia, right-sided expressive weakness and pulmonary hypertension, choric congestive systolic heart failure with ejection fraction of 25%, chronic obstructive pulmonary disease, hypertension, chronic lymphedema, atrial fibrillation on Eliquis, morbid obesity, neurogenic bladder with suprapubic catheter with history of infections from the leg venous stasis ulcers, requiring methicillin-resistant Staphylococcus aureus and pseudomonas, came in for leaking suprapubic catheter and Urology is on the case. Urine culture grew multi-drug resistant Klebsiella, on antibiotics agitation. He has vascular dementia with behavioral disturbance and superimposed underlying toxic metabolic encephalopathy. At this time, recommend: 1. Continue with Depakote 500 mg p.o. b.i.d. for underlying behavioral disturbance. In addition, recommend to put him on Seroquel 25 mg p.o. at bedtime and Geodon 1 mg round the clock. 2. his behavioral disturbances. 3. Psychiatric recommendations are needed. 4. Recommend aspirin 81 mg and Eliquis 2.5 mg p.o. b.i.d. and Lipitor for stroke prevention. 5. Delirium precautions, frequent orientation throughout the day and thiamine 100 mg IM injection daily. Sixto Barker MD
[2018-07-16] MEDS: Fluconazole IV 200mg/100 ml NS 100 ML IVPB SCH ×3 (10:00→18:30)
[2018-07-16] MEDS: Ammonium Lactate 12% Lotion (225 g) EXT SCH ×2 (10:00→19:02)
[2018-07-16] MEDS: Nystatin 100,000 Units/gm Topical Pow(15 gm) TOP SCH (10:00)
[2018-07-16] MEDS: Vancomycin 25 MG/ML PO SCH ×3 (10:05→18:46)
[2018-07-16] MEDS: Divalproex 125 mg EC Sprinkle Cap PO SCH ×2 (10:06→19:10)
[2018-07-16] MEDS: Cholecalciferol 1,000 INTLU TAB PO SCH (10:07)
[2018-07-16] MEDS: Levothyroxine 25 MCG TAB PO SCH (10:07)
[2018-07-16] MEDS: QUEtiapine 50 mg XR Tab PO SCH (10:08)
[2018-07-16 12:27] LABS: PH,URINE 6.5 (4.7-8.0); URINE BILIRUBIN MODERATE (NEGATIVE); URINE BLOOD LARGE (NEGATIVE); URINE GLUCOSE (UA) NEGATIVE (NEGATIVE); URINE LEUKOCYTE ESTERASE MODERATE Leu/uL (NEGATIVE); URINE PROTEIN >=300 mg/dL (<30 mg/dL)
[2018-07-16 12:31] LABS: URINE APPEARANCE CLOUDY (CLEAR); URINE COLOR DARK BROWN (YELLOW)
[2018-07-16 12:46] LABS: URINE RBC TNTC /hpf (0-2); URINE WBC TNTC /hpf (0-6)
[2018-07-16 12:47] LABS: URINE BACTERIA LARGE (NEG)
--- NOTE | 2018-07-16 17:07 | CP.PCM.PN ---
Subjective - Date & Time of Evaluation Date of Evaluation: 07/16/18 Time of Evaluation: 11:00 - Subjective Subjective: No fevers, not in distress. Objective - Vital Signs/Intake and Output Vital Signs (last 24 hours): Temp Pulse Resp BP Pulse Ox 98.5 F 82 18 125/54 L 100 07/15/18 14:00 07/15/18 14:00 07/15/18 14:00 07/15/18 14:00 07/15/18 14:00 Intake and Output: 07/15/18 07/15/18 06:59 18:59 Intake Total 920 Output Total 1450 Balance -530 - Medications Medications: Current Medications Acetaminophen (Tylenol 325mg Tab) 650 mg PO Q6 PRN PRN Reason: TEMP>=99.5F Last Admin: 07/14/18 21:25 Dose: 650 mg Acetaminophen (Tylenol 650 Mg Supp) 650 mg RC Q6H PRN PRN Reason: TEMP>=99.5F Alprazolam (Xanax) 0.25 mg PO BID [facility]; Protocol Stop: 07/15/18 18:01 Last Admin: 07/15/18 11:42 Dose: 0.25 mg Alprazolam (Xanax) 0.25 mg PO HS [facility]; Protocol Stop: 07/15/18 22:01 Last Admin: 07/14/18 21:17 Dose: Not Given Apixaban (Eliquis) 2.5 mg PO BID [facility]; Protocol Last Admin: 07/15/18 11:39 Dose: 2.5 mg Aspirin (Aspirin Chewable) 81 mg PO DAILY [facility] Last Admin: 07/15/18 11:38 Dose: 81 mg Atorvastatin Calcium (Lipitor) 40 mg PO HS [facility] Last Admin: 07/15/18 07:13 Dose: Not Given Cholecalciferol (Vitamin D) 2,000 intlu PO DAILY [facility] Last Admin: 07/15/18 11:42 Dose: 2,000 intlu Diphenhydramine HCl (Benadryl) 25 mg PO Q8H PRN PRN Reason: Itching / Pruritus Last Admin: 07/15/18 05:50 Dose: 25 mg Divalproex Sodium (Depakote Sprinkles) 500 mg PO BID [facility]; Protocol Last Admin: 07/15/18 11:39 Dose: 500 mg Famotidine (Pepcid) 20 mg PO BID [facility] Last Admin: 07/15/18 11:41 Dose: 20 mg Heparin Sodium (Porcine) (Heparin) 5,000 units SC Q8 [facility]; Protocol Last Admin: 07/09/18 20:10 Dose: Not Given Fluconazole (Diflucan Iv 200 Mg/100 Ml Ns) 100 mls @ 100 mls/hr IVPB DAILY [facility]; Protocol Meropenem/Sodium Chloride (Merrem Iv 500 Mg/Ns 50 Ml) 500 mg in 50 mls @ 100 mls/hr IVPB Q12 [facility]; Protocol Stop: 07/19/18 22:29 Last Admin: 07/15/18 15:00 Dose: Not Given Lactic Acid (Lac-Hydrin 12% Lotion (225 G)) 0 gm EXT BID [facility] Last Admin: 07/14/18 18:15 Dose: 1 applic Levothyroxine Sodium (Synthroid) 25 mcg PO ACB [facility] Last Admin: 07/15/18 11:41 Dose: 25 mcg Losartan Potassium (Cozaar) 50 mg PO DAILY [facility] Last Admin: 07/15/18 11:38 Dose: 50 mg Metoprolol Tartrate (Lopressor) 50 mg PO BID [facility] Last Admin: 07/15/18 11:40 Dose: 50 mg Nystatin (Nystop Topical Powder) 0 gm TOP BID [facility] Last Admin: 07/14/18 18:16 Dose: 1 applic Quetiapine Fumarate (Seroquel) 12.5 mg PO HS [facility]; Protocol Last Admin: 07/14/18 21:17 Dose: 12.5 mg Torsemide (Demadex) 5 mg PO DAILY [facility] Last Admin: 07/15/18 11:39 Dose: 5 mg Vancomycin HCl (Vancocin 25 Mg/Ml (Oral Use)) 250 mg PO QID [facility]; Protocol Last Admin: 07/15/18 15:00 Dose: Not Given - Labs Labs: 07/13/18 14:30 07/13/18 16:00 PT 16.5 SECONDS (9.4-12.5) H 07/08/18 14:45 INR 1.44 07/08/18 14:45 APTT 32.4 Seconds (25.1-36.5) 07/08/18 14:45 - Constitutional Appears: No Acute Distress, Chronically Ill - Head Exam Head Exam: NORMAL INSPECTION - Respiratory Exam Respiratory Exam: Decreased Breath Sounds - Cardiovascular Exam Cardiovascular Exam: +S1, +S2 - GI/Abdominal Exam GI & Abdominal Exam: Soft. absent: Tenderness Assessment and Plan - Assessment and Plan (Free Text) Plan: Assessment consider complicated UTI with multidrug-resistant Klebsiella and yeast in this patient with suprapubic Sevilla catheter use - just changed on this admission history of right leg infected venous stasis ulcers, with MRSA and Pseudomonas acute CVA with right sided weakness and residual aphasia S/P tPA infusion history of left lower extremity skin and skin structure infection with Klebsiella and MRSA in a patient with chronic venous stasis ulcers with no evidence of abscess or osteomyelitis on MRI, clinically improving Probable CHF exacerbation chronic systolic CHF with EF 25% chronic atrial fibrillation chronic lymphedema with chronic venous stasis COPD HTN history of gastric bypass surgery history of left knee surgery Plan will change antibiotics to Avycaz and will continue Diflucan \ follow up repeat urine cx will continue to monitor clinically
[2018-07-16] MEDS: Thiamine 100 mg/ml Inj IM SCH (17:31)
--- NOTE | 2018-07-16 19:25 | CON ---
DATE: 07/16/2018 HISTORY OF PRESENT ILLNESS: In short, the patient is a 63-year-old male with multiple medical issues including CVA with residual aphasia and right-sided weakness, pulmonary hypertension, systolic congestive heart failure with ejection fraction of 25%, COPD, hypertension, chronic lymphedema, atrial fibrillation, morbid obesity and neurogenic bladder, status post suprapubic catheter. The patient is on antibiotics via PICC line. The patient was admitted on the medical side for evaluation of leakage of suprapubic catheter. Psych consult was called for evaluation of mental status. The patient has periods of agitation as well as screaming and difficult to express himself as well as frustration when the patient cannot express himself as well as people do not understand his needs. Also, the patient has episodes of combative behavior. This headline writer is very familiar with this patient from the multiple consultation services in the past. The patient has power of staff attorney, his [id number] who seems to be very involved into the patient's care. The patient was seen and examined. The patient was deeply sedated. The patient got Seroquel yesterday at the nighttime 50 mg as per nurse. The patient tolerated that well and slept through the night. The patient also got one dose of Geodon as well as Benadryl. The patient was not able to participate in interview because the patient is deeply sedated, but not in acute distress. PHYSICAL EXAMINATION: VITAL SIGNS: Seems to be stable. Temperature 98.1, pulse is 53, blood pressure 114/69, respirations 18, and oxygen saturation is 95. MENTAL STATUS EXAMINATION: Not possible to evaluate because the patient was deeply sedated. The patient was very well known to this headline writer from the previous admission. The patient has expressive aphasia, periods of agitation and restless behavior. MEDICATIONS: Reviewed. Tylenol, aspirin, Eliquis, Lipitor, vitamin D, Benadryl for itchiness, the patient is on Depakote 500 mg twice a day, Pepcid, Diflucan, heparin, lactic acid, Synthroid, losartan, meropenem, Lopressor, nystatin, Seroquel was given to the patient 50 mg at the nighttime agree with that, but primary care need to discuss risks, benefits and alternatives with the patient's family. The patient is on vancomycin as well. LABORATORY DATA: Reviewed. Coagulation reviewed. Chemistry reviewed. Urinalysis reviewed. The patient has leukocyte esterase moderate. Serology reviewed. Microbiology showed Klebsiella pneumoniae and species in the urine on 07/13/2018. IMPRESSION: Behavioral disturbances are related to aphasia and when the patient is not able to express himself usually the patient is getting frustrated and screaming. This headline writer also cannot exclude that the patient is in delirium stage. PLAN: Seroquel was started by Neurology agree with that, but small doses needs to be given to the patient. The patient also was on Xanax, but it was discontinued. Depakote should be continued, but we will check Depakote level tomorrow at the morning time. Family should be involved. The patient has power of staff attorney, the patient's [id number] who seems to be involved into the patient's care. This headline writer will be off tomorrow, Dr. Aguilar will cover. Thank you very much for letting me to participate in the care of your patient. Shana Esposito MD
--- NOTE | 2018-07-17 00:12 | PN ---
DATE: 07/16/2018 LOCATION: The patient was seen in room 576, bed 1. SUBJECTIVE: The patient was seen and examined with the medical biller coder. The patient was seen lying in the bed. The patient's nurse was at the bedside. When I started examining the patient, the patient started swinging his left arm towards me and attempted to grab my hand and was resisting examination and kept swinging his left arm towards me. Overnight nurse's notes were reviewed. In the last 12 hours yesterday, the patient had multiple episodes of agitation and confusion. The patient was refusing medication, spitting out medication. The patient was found by the nurses to be yelling, screaming, picking. The patient was evaluated by Neurology, required IM Geodon and Seroquel treatment for above agitation and behavioral disorder. The patient also attempted to climb out of the bed. The patient required restraints in order to have an IV access which eventually the patient pulled it out. The patient was also found to be confused. The patient today even was found to be restless and combative. The patient had a very poor IV access, and the patient has pulled out multiple IVs which were inserted. The patient has been seen yelling. PHYSICAL EXAMINATION: VITAL SIGNS: T-max 98.4; heart rate in the last 24 to 48 hours is 69, 82 and 70; blood pressure 116/75 and 114/69; respirations 18 to 20; O2 sat 96%. HEAD: Normocephalic, atraumatic. HEENT Shows pink conjunctivae. Anicteric sclerae. The patient is aphasic with dysarthria and apraxia. No neck rigidity. CHEST: Kyphosis. LUNGS: Show no audible rales, crackles, or wheezing. Decreased breath sound at the left base. CARDIOVASCULAR: S1, S2, regular rhythm. Positive systolic murmur, Right second intercostal space, left second intercostal space. ABDOMEN: Obese. Positive suprapubic cystostomy. No palpable hepatosplenomegaly noted. GENITALIA: Male. RECTAL: Deferred. EXTREMITIES: Shows chronic lymphedema. There are changes of the lower extremity with trace swelling and no pitting edema. MUSCULOSKELETAL: Shows an elevated body mass index of greater than 46. Urine cultures shows multidrug resistant Klebsiella pneumoniae and yeast. Body mass index is 47. Blood cultures are negative. The patient was seen by Neurologist, Psychiatrist, and Infectious Disease. The recommendations were reviewed.. IMPRESSION: 1. Vascular dementia with extreme and severe behavioral disorders. 2. Multidrug resistant Klebsiella pneumoniae urinary tract infection with funguria and yeast urinary tract infection. 3. Toxic metabolic encephalopathy. 4. Severe behavioral disorder with episodes of screaming, combative behavior. 5. High risk for fall. 6. Gait dysfunction. 7. Cerebral infarct with right hemiparesis. 8. Anticoagulation dependent atrial fibrillation. 9. Voiding dysfunction with suprapubic cystostomy placement. 10. History of cerebrovascular accident with right-sided hemiparesis with expressive aphasia, dysarthria, and apraxia. 11. Hypertension. 12. Atrial fibrillation with variable ventricular response. 13. Multidrug-resistance Klebsiella pneumoniae urinary tract infection. 14. Possible delirium. 15. Bilateral lower extremity lymphedema and history of venous stasis of the lower extremity. 16. Vascular dementia with severe behavioral disturbances and superimposed underlying toxic metabolic encephalopathy. 17. Voiding dysfunction. 18. Combative behavior. 1. Severe behavioral disorders with continued episodes of agitation, combativeness and yelling and screaming and severe behavior disorder. 2. Gram-negative ankita and yeast urinary tract infection and funguria. 3. Voiding dysfunction. 4. Suprapubic cystostomy malfunction and dysfunction, status post revision of the suprapubic cystostomy. 5. Neurogenic bladder. 6. History of cerebral infarct with right-sided paresis. 7. Expressive aphasia, dysarthria and apraxia. 8. Anticoagulation-dependent atrial fibrillation. 9. Congestive heart failure and dilated cardiomyopathy. 10. Pulmonary hypertension. 11. History of gastric bypass surgery. 12. Suprapubic cystostomy. 13. Clostridium difficile-associated diarrhea and pseudomembranous colitis (resolved). 14. Lower extremity lymphedema and venous stasis ulceration. 15. Morbid obesity. 16. Gait dysfunction. 17. Deconditioning. 18. Right hemiparesis. 20. History of constipation. 21. Degenerative joint disease of the spine, hips, knees. 22. History of longstanding noncompliance and poor compliance. 1. Suprapubic cystostomy tube malfunction. 2. Status post revision and replacement of the suprapubic cystostomy. 3. Voiding dysfunction. 4. Urinary incontinence and urinary retention. 5. Behavioral disorders with episodes of agitation, restlessness, combative behavior. 6. Cerebral infarct with right-sided paresis. 7. Dysarthria, expressive aphasia, and apraxia. 8. Poor compliance and noncompliance. 9. Hypertension. 10. Anticoagulation-dependent atrial fibrillation. 11. Morbid obesity. 12. History of bilateral lower extremity lymphedema and venous stasis. 13. Gait dysfunction. 14. Deconditioning. 15. Morbid obesity. 16. Hyperlipidemia. 17. Hypothyroidism. 18. History of gastric bypass surgery. 19. Degenerative joint disease of the spine, knees, and hips. 20. History of constipation. 21. Clostridium difficile-associated diarrhea and pseudomembranous colitis (resolving). 1. Behavioral disorder with episodes of agitation, confusion, combativeness. 2. Suprapubic cystostomy malfunction and dysfunction. 3. Status post suprapubic cystostomy revision with placement of the new 16-Trinidadian two-way suprapubic cystostomy. 4. Urinary retention and incontinence. 5. Voiding dysfunction. 6. Hypertension. 7. Atrial fibrillation. 8. Morbid obesity with elevated body mass index of 47. 9. History of cerebral infarct with right-sided paresis. 10. Dysarthria, apraxia, expressive aphasia. 11. Chronic kidney disease stage 3. 12. Hyperbilirubinemia. 13. Morbid obesity. 14. History of bilateral lower extremity lymphedema and venous stasis. 15. Gait dysfunction. 16. Deconditioning. 17. Behavioral disorder. 18. Anticoagulation-dependent atrial fibrillation. 19. Hyperlipidemia. 20. History of hypothyroidism, history of hypovitaminosis D, history of anxiety disorder. 21. History of clostridium difficile associated diarrhea and pseudomembranous colitis (resolving). 1. Status post revision of the suprapubic cystostomy with placement of 16-Trinidadian two-way suprapubic cystostomy. 2. Voiding dysfunction. 3. Neurogenic bladder. 4. Behavioral disorder with episodes of screaming, agitation and yelling. 5. Episodic confusion. 6. History of cerebral infarct with right-sided residual hemiparesis. 7. Morbid obesity. 8. History of anticoagulation requiring atrial fibrillation. 9. Dilated cardiomyopathy. 10. Pulmonary hypertension. 11. History of gastric bypass surgery. 12. Status post suprapubic cystostomy placement. 13. Urinary incontinence, urinary retention and voiding dysfunction. 14. Bilateral lower extremity lymphedema with history of MRSA cellulitis of the bilateral lower extremities venous stasis ulceration. 15. Morbid obesity. 16. Hypertension. 17. Elevated body mass index. 18. Gait dysfunction. 19. Longstanding history of noncompliance and poor compliance. 20. History of hypertension, hyperlipidemia, hypothyroidism. 1. Suprapubic cystostomy malfunction. 2. Status post revision and placement of 16-Trinidadian two-way suprapubic cystostomy tube placement. 3. Voiding dysfunction. 4. Neurogenic bladder. 5. Urinary incontinence. 6. Behavioral disorder with agitation and screaming behavior. 7. History of cerebral infarct with right-sided residual weakness and hemiparesis. 8. Anticoagulation-dependent atrial fibrillation. 9. Morbid obesity. 10. Hypertension. 11. . 12. Morbid obesity, status post gastric bypass surgery. 13. Cardiomyopathy. 14. Hypothyroidism. 15. Expressive aphasia, dysarthria and apraxia. 16. Gait dysfunction. 17. Deconditioning. 18. Bilateral lower extremity lymphedema and venous stasis. 19. 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 20. History of constipation. 21. Clostridium deficit associated diarrhea and pseudomembranous colitis (resolving versus resolved). 23. Hyperlipidemia. 24. Hypothyroidism. 1. Suprapubic cystostomy malfunction and dysfunction. 2. Status post suprapubic cystostomy catheter change with 16-Trinidadian two-way suprapubic cystostomy placement. 3. Gait dysfunction. 4. Deconditioning. 5. Morbid obesity. 6. History of cerebral infarct with residual right-sided weakness. 7. Expressive aphasia, apraxia, and dysarthria. 8. Longstanding chronic noncompliance and poor compliance. 9. Anticoagulation-dependent atrial fibrillation. 10. Cardiomyopathy. 11. Pulmonary hypertension. 12. Hypothyroidism. 13. Bilateral lower extremity lymphedema with history of venous stasis ulceration of the lower extremity. 14. Degenerative joint disease of the spine, hips, and knees. 15. Voiding dysfunction. 16. Possible neurogenic bladder. 17. History of constipation. 18. Clostridium difficile associated diarrhea and pseudomembranous colitis, presently on p.o. Vancocin. 19. History of dilated cardiomyopathy and systolic congestive heart failure. 20. Hyperlipidemia. 21. Hypertension. 1. Suprapubic cystostomy malfunction. 2. Voiding dysfunction with urinary retention and urinary incontinence. 3. Hypertension. 4. Granulocytosis. 5. Anticoagulation dependent atrial fibrillation. 6. Chronic kidney disease stage 3. 7. Morbid obesity. 8. Deconditioning. 9. Gait dysfunction. 10. 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 11. Longstanding history of poor and noncompliance. 12. Behavioral disorder. 13. Chronic bilateral lower extremity lymphedema. 14. Hyperlipidemia. 15. Hypothyroidism. 16. Clostridium difficile associated diarrhea and pseudomembranous colitis and (resolved). 17. Hypovitaminosis D. 18. Questionable anxiety disorder. 19. History of constipation. 1. Suprapubic cystostomy malfunction with questionable urinary incontinence from the suprapubic catheter site. 2. Hypertension. 3. Gait dysfunction. 4. Granulocytosis. 5. Chronic kidney disease, stage III. 6. Mild hyperbilirubinemia. 7. Morbid obesity. 8. History of cerebral infarct with residual right-sided weakness (almost resolved). 9. Clostridium difficile associated diarrhea with pseudomembranous colitis. 10. Behavioral disorder with agitation and combativeness. 11. Hypokalemia. 12. Anticoagulation requiring atrial fibrillation. 13. Hypothyroidism. 14. History of constipation. 15. Hypovitaminosis D. 16. Hyperlipidemia. 17. Questionable anxiety disorder. 1. Clostridium difficile associated diarrhea and pseudomembranous colitis (resolving). 2. Altered mental status with behavioral disorder with combative, aggressive behavior. 3. History of longstanding noncompliance. 4. Hypertension. 5. Deconditioning. 6. History of cerebral infarct with residual right-sided weakness (resolved). 7. Mild normocytic anemia. 8. Granulocytosis. 9. Anticoagulation-dependent atrial fibrillation. 10. Hypokalemia. 11. Status post acute kidney injury. 12. Mild hyperbilirubinemia. 13. Hypomagnesemia. 14. History of hypothyroidism. 15. History of hypovitaminosis D. 16. History of hyperlipidemia. 17. Proteinuria, hematuria, pyuria, bacteriuria. 18. Gait dysfunction. 19. History of bilateral lower extremity lymphedema and bilateral lower extremity venous stasis. 20. 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 21. Cholelithiasis. 22. Anterior abdominal wall muscular atrophy. 23. Incidental finding of cholelithiasis. 24. Morbid obesity. 25. Cardiomyopathy. 26. Pulmonary hypertension. 1. Persistent behavioral disorder with continuous and intermittent screaming and yelling and agitation. 2. Vascular type dementia and delirium. 3. Status post acute kidney injury (resolved). 4. Hypertension. 5. Hypokalemia. 6. Hypomagnesemia. 7. Chronic kidney disease stage III. 8. Anticoagulation requiring atrial fibrillation. 9. Mild normocytic anemia. 10. Granulocytosis. 11. History of hypothyroidism. 12. History of cardiomyopathy. 13. Longstanding history of poor compliance and noncompliance. 14. Gait dysfunction. 15. Proteinuria, microscopic hematuria, pyuria, bacteriuria. 16. Clostridium difficile associated diarrhea and pseudomembranous colitis. 17. Deconditioning. 18. Morbid obesity. 19. Voiding dysfunction and neurogenic bladder with status post suprapubic cystostomy. 20. Anticoagulation requiring atrial fibrillation. 21. Hyperlipidemia. 22. Hypothyroidism. 23. Hypovitaminosis D. 24. Agitation and combative behavior. 25. Vascular dementia with delirium. 1. Delirium versus possible vascular dementia. 2. Behavioral disorder, probably secondary to cerebral infarct. 3. Extremely poor compliance and noncompliance with history of longstanding noncompliance and poor compliance. 4. Gait dysfunction. 5. Morbid obesity. 6. History of cerebral infarct with right-sided residual hemiparesis and weakness. 7. Expressive aphasia, dysarthria, apraxia. 8. Extremely poor compliance with refusing to take medications, refusing to do physical therapy, refusing to be out of bed to chair. 9. Normocytic anemia. 10. Anticoagulation requiring atrial fibrillation. 11. Morbid obesity, status post gastric bypass surgery. 12. Neurogenic bladder and voiding dysfunction with status post suprapubic cystostomy placement. 13. Mild hypoalbuminemia. 14. Status post acute kidney injury. 15. Congestive heart failure. 16. Pulmonary hypertension. 17. Bilateral lower extremity lymphedema and venous stasis of the lower extremity. 18. Hyperlipidemia. 19. Hypertension. 20. Hypothyroidism. 21. Voiding dysfunction. 1. Severe behavioral disorder. 2. Agitated and combative behavior. 3. Delirium. 4. Vascular dementia. 5. Severe cerebral cortical atrophy and chronic microvascular ischemic disease of the brain on MRI of the brain. 6. Gait dysfunction. 7. Deconditioning. 8. Status post acute kidney injury. 9. Anticoagulation-dependent atrial fibrillation. 10. History of cerebral infarct with right-sided residual hemiparesis and weakness. 11. Pseudomembranous colitis with Clostridium difficile associated diarrhea (resolving). 12. Hypertension. 13. Morbid obesity, status post gastric bypass surgery. 14. Voiding dysfunction with neurogenic bladder, status post suprapubic cystostomy placement. 15. Gait dysfunction. 16. Deconditioning. 17. Uncooperative behavior. 18. History of longstanding poor compliance and noncompliance. 19. Atrial fibrillation. 20. Hyperlipidemia. 21. History of chronic constipation. 22. 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 23. History of bilateral lower extremity lymphedema and venous stasis. 1. Clostridium difficile associated diarrhea and colitis with Clostridium difficile toxin and antigen positive. 2. Delirium. 3. Vascular dementia. 4. Toxic metabolic encephalopathy. 5. Behavioral disorder. 6. Episodic agitation and noncompliance with medication treatment, etc. 7. Normocytic anemia. 8. Anticoagulation-dependent atrial fibrillation. 9. History of cerebrovascular infarct with right residual hemiparesis. 10. Expressive aphasia, dysarthria and apraxia. 11. Normocytic anemia. 12. Acute kidney injury with underlying chronic kidney disease stage 3 A and B. 13. Normocytic anemia. 14. Hypertension. 15. Atrial fibrillation. 16. Hypokalemia. 17. Hypomagnesemia. 18. Acute exacerbation of delirium and vascular dementia. 19. Right ventricular dysfunction with cardiorenal syndrome. 20. History of dilated cardiomyopathy and systolic congestive heart failure. 21. Gait dysfunction. 22. Bilateral lower extremity venous lymphedema. 23. Morbid obesity, history of gastric bypass surgery. 24. Neurogenic bladder with voiding dysfunction, status post suprapubic cystostomy. 25. History of hyperlipidemia. 26. History of chronic constipation. 27. History of degenerative joint disease of the spine, knees and hips. 28. Morbid obesity. 1. Episodic agitation and restlessness with possible behavioral disorder. 2. History of cerebrovascular accident with right-sided hemiparesis. 3. Questionable and possible Clostridium difficile associated diarrhea. 4. Normocytic anemia. 5. History of Clostridium difficile colitis. 6. Hypokalemia. 7. Acute kidney injury (resolving). 8. Hypomagnesemia. 9. History of hypothyroidism. 10. Episodic agitation and restlessness, probably secondary to aphasia, apraxia and dysarthria. 11. Cholelithiasis. 12. Right renal cyst. 13. History of gastric bypass. 14. Prostatomegaly. 15. Voiding dysfunction status post suprapubic cystostomy. 16. Old right frontal infarct. 17. Microvascular ischemic disease of the brain. 18. Cerebral cortical atrophy of the brain. 19. Decreased high-density lipoprotein. 1. Questionable altered mental status with possible behavioral disorder with combative and aggressive behavior. 2. Questionable Clostridium difficile associated diarrhea. 3. Mild normocytic anemia. 4. Granulocytosis. 5. Hypokalemia. 6. Chronic kidney disease stage 3. 7. Status post suprapubic cystostomy. 8. Proteinuria. 9. Microscopic hematuria, pyuria, bacteriuria. 10. History of left-sided cerebral cortical infarct with right hemiparesis. 11. Cardiomegaly. 12. Dilated cardiomyopathy. 13. Pulmonary hypertension. 14. Bilateral lower extremity venous stasis and lymphedema. 15. Deconditioning. 16. Gait dysfunction. 17. Morbid obesity. 18. Atrial fibrillation. 19. Expressive aphasia, dysarthria, apraxia. 20. Hypertension. 21. History of anxiety. 22. Hyperlipidemia. 23. Coumadin-dependent atrial fibrillation. 24. Hypovitaminosis D. 25. History of hypothyroidism. 26. History of constipation, history of hypokalemia, history of prostatic hypertrophy. 27. History of noncompliance. PLAN At this time, the patient was seen by all subspecialty. CURRENT MEDICATIONS: Aspirin 81 mg daily. The patient is on Avycaz 1.25 g IV every 8 hours, Benadryl 25 mg p.o. every 8 hours p.r.n., Cozaar 50 mg daily, Demadex 5 mg daily, Depakote 500 mg twice a day, Diflucan 200 mg IV daily, Eliquis 2.5 mg twice a day, heparin 5000 subcu every 8 hours, Lac-Hydrin lotion, Lipitor 40 mg daily, Lopressor 50 mg twice a day with holding parameter for heart rate less than or equal to 60 per minute, Pepcid 20 mg twice a day, Seroquel 50 mg daily, Synthroid 25 mcg daily, Tylenol p.r.n., vancomycin 250 mg q.i.d., thiamine 100 mg IM daily, vitamin D3 of 2000 international units daily. The patient was seen by the physical therapist. The patient was unable to undergo physical therapy because the patient continues to be combative despite multiple attempts by the physical therapy for treatment evaluation. At present, the patient is seen by Family Service Counselor. The patient is in the process of being placed for long-term placement. The patient will be continued on the therapeutic intervention as dictated above. The patient's overall prognosis is guarded. Dictated and electronically signed, not read. Rashad Brown MD MTDJosé Luis
[2018-07-17] MEDS: Nystatin 100,000 Units/gm Topical Pow(15 gm) TOP SCH ×3 (06:27→18:27)
[2018-07-17] MEDS: Vancomycin 25 MG/ML PO SCH ×4 (09:59→22:55)
[2018-07-17] MEDS: Cholecalciferol 1,000 INTLU TAB PO SCH (10:00)
[2018-07-17] MEDS: Thiamine 100 mg/ml Inj IM SCH (10:00)
[2018-07-17] MEDS: Levothyroxine 25 MCG TAB PO SCH (10:01)
[2018-07-17] MEDS: QUEtiapine 50 mg XR Tab PO SCH (10:01)
[2018-07-17] MEDS: Divalproex 125 mg EC Sprinkle Cap PO SCH ×2 (10:02→16:59)
[2018-07-17] MEDS: Ammonium Lactate 12% Lotion (225 g) EXT SCH ×2 (10:03→18:26)
[2018-07-17 11:09] LABS: MEAN CELL VOLUME 96.1 fl (80.0-105.0); MEAN CORPUSCULAR HGB CONC 32.2 g/dl (31.0-37.0); MEAN PLATELET VOLUME 9.7 fl (7.0-11.0); RBC 4.1 10^6/uL (3.5-6.1); RED CELL DISTRIBUTION WIDTH 14.5 % (11.5-14.5); WHITE BLOOD COUNT 5.9 10^3/uL (4.5-11.0)
[2018-07-17 11:11] LABS: HEMOGLOBIN 12.7 g/dL (14.0-18.0)
[2018-07-17 11:15] LABS: ALBUMIN 3.1 g/dL (3.0-4.8); CALCIUM 8.8 mg/dL (8.4-10.5)
[2018-07-17] MEDS: Fluconazole IV 200mg/100 ml NS 100 ML IVPB SCH (12:00)
[2018-07-17] MEDS ORDERED: Sodium Chloride 0.9% 1,000 ML IV SCH (16:45)
--- NOTE | 2018-07-17 16:52 | CP.PCM.PN ---
Subjective - Date & Time of Evaluation Date of Evaluation: 07/17/18 Time of Evaluation: 10:50 - Subjective Subjective: No fevers, not in distress but yelling at floor staff. Objective - Vital Signs/Intake and Output Vital Signs (last 24 hours): Temp Pulse Resp BP Pulse Ox 98.2 F 47 L 16 116/75 96 07/16/18 14:00 07/16/18 14:00 07/16/18 14:00 07/16/18 14:00 07/16/18 14:00 Intake and Output: 07/16/18 07/16/18 06:59 18:59 Intake Total 360 Output Total 325 150 Balance 35 -150 - Medications Medications: Current Medications Acetaminophen (Tylenol 325mg Tab) 650 mg PO Q6 PRN PRN Reason: TEMP>=99.5F Last Admin: 07/16/18 10:07 Dose: 650 mg Acetaminophen (Tylenol 650 Mg Supp) 650 mg RC Q6H PRN PRN Reason: TEMP>=99.5F Apixaban (Eliquis) 2.5 mg PO BID [facility]; Protocol Last Admin: 07/16/18 10:07 Dose: 2.5 mg Aspirin (Aspirin Chewable) 81 mg PO DAILY [facility] Last Admin: 07/16/18 10:08 Dose: 81 mg Atorvastatin Calcium (Lipitor) 40 mg PO HS [facility] Last Admin: 07/15/18 21:55 Dose: 40 mg Cholecalciferol (Vitamin D) 2,000 intlu PO DAILY [facility] Last Admin: 07/16/18 10:07 Dose: 2,000 intlu Diphenhydramine HCl (Benadryl) 25 mg PO Q8H PRN PRN Reason: Itching / Pruritus Last Admin: 07/15/18 21:55 Dose: 25 mg Divalproex Sodium (Depakote Sprinkles) 500 mg PO BID [facility]; Protocol Last Admin: 07/16/18 10:06 Dose: 500 mg Famotidine (Pepcid) 20 mg PO BID [facility] Last Admin: 07/16/18 10:07 Dose: 20 mg Heparin Sodium (Porcine) (Heparin) 5,000 units SC Q8 [facility]; Protocol Last Admin: 07/09/18 20:10 Dose: Not Given Fluconazole (Diflucan Iv 200 Mg/100 Ml Ns) 100 mls @ 100 mls/hr IVPB DAILY [facility]; Protocol Last Admin: 07/16/18 10:00 Dose: Not Given Ceftazidime/Avibactam 1.25 gm/ (Sodium Chloride) 100 mls @ 50 mls/hr IVPB Q8H [facility]; Protocol Stop: 07/23/18 17:16 Lactic Acid (Lac-Hydrin 12% Lotion (225 G)) 0 gm EXT BID [facility] Last Admin: 07/15/18 18:00 Dose: Not Given Levothyroxine Sodium (Synthroid) 25 mcg PO ACB [facility] Last Admin: 07/16/18 10:07 Dose: 25 mcg Losartan Potassium (Cozaar) 50 mg PO DAILY [facility] Last Admin: 07/16/18 10:08 Dose: 50 mg Metoprolol Tartrate (Lopressor) 50 mg PO BRKDIN [facility] Nystatin (Nystop Topical Powder) 0 gm TOP BID [facility] Last Admin: 07/15/18 18:00 Dose: Not Given Quetiapine Fumarate (Seroquel Xr) 50 mg PO DAILY [facility]; Protocol Last Admin: 07/16/18 10:08 Dose: 50 mg Thiamine HCl (Vitamin B1 Inj) 100 mg IM DAILY [facility] Torsemide (Demadex) 5 mg PO DAILY [facility] Last Admin: 07/15/18 11:39 Dose: 5 mg Vancomycin HCl (Vancocin 25 Mg/Ml (Oral Use)) 250 mg PO QID [facility]; Protocol Last Admin: 07/16/18 14:00 Dose: Not Given - Labs Labs: 07/13/18 14:30 07/13/18 16:00 PT 16.5 SECONDS (9.4-12.5) H 07/08/18 14:45 INR 1.44 07/08/18 14:45 APTT 32.4 Seconds (25.1-36.5) 07/08/18 14:45 - Constitutional Appears: Chronically Ill - Head Exam Head Exam: NORMAL INSPECTION - Respiratory Exam Respiratory Exam: Decreased Breath Sounds - Cardiovascular Exam Cardiovascular Exam: +S1, +S2 - GI/Abdominal Exam GI & Abdominal Exam: Soft. absent: Tenderness Assessment and Plan - Assessment and Plan (Free Text) Plan: Assessment consider complicated UTI with multidrug-resistant Klebsiella and yeast in this patient with suprapubic Sevilla catheter use - just changed on this admission gram positive cocci in clusters in 1 of 4 blood cx bottles - consider contamination history of right leg infected venous stasis ulcers, with MRSA and Pseudomonas acute CVA with right sided weakness and residual aphasia S/P tPA infusion history of left lower extremity skin and skin structure infection with Klebsiella and MRSA in a patient with chronic venous stasis ulcers with no evidence of abscess or osteomyelitis on MRI, clinically improving Probable CHF exacerbation chronic systolic CHF with EF 25% chronic atrial fibrillation chronic lymphedema with chronic venous stasis COPD HTN history of gastric bypass surgery history of left knee surgery Plan will continue Avycaz day 2 and will continue Diflucan - repeat urine cx showing gram negative bacilli and we are awaiting identification and sensitivities - will need 7-10 days of antibiotics will continue to monitor clinically
--- NOTE | 2018-07-17 21:44 | PN ---
DATE: 07/17/2018 LOCATION: The patient is in room 576, bed 1. SUBJECTIVE: Overnight nurse's notes were reviewed. The patient slept during the night with less episodes of combativeness, agitation and restlessness. According to the nurses' note, the patient did sleep during the night and was less agitated as compared to other days. The patient is in room 576, bed 1. PHYSICAL EXAMINATION VITAL SIGNS: T-max 97.9, pulse rate 54, blood pressure 144/91, respirations 18, O2 sat 96%. GENERAL: In the last 24 hours yesterday, the patient was very combative and when I attempted to examine him yesterday, the patient started swinging his left arm towards me, which the patient was cautioned about. The patient is lying in the bed. HEAD: Normocephalic, atraumatic. HEENT: Shows pinkish conjunctivae. Anicteric sclerae. Dry oral mucosa. No neck rigidity. CHEST: Symmetrical. LUNGS: Show no audible rales, crackles or wheezing. CARDIOVASCULAR: S1 and S2, irregular rhythm. Positive systolic murmur at the left sternal border, right second intercostal space and left second intercostal space. ABDOMEN: Obese. Positive bowel sound. Positive suprapubic cystostomy. Positive healed surgical scar of gastric bypass surgery. GENITALIA: Male. RECTAL: Deferred. EXTREMITIES: Show chronic lymphedema changes of the lower extremity, chronic discoloration of the lower extremity. MUSCULOSKELETAL: Shows an elevated body mass index of greater than 46. NEUROLOGIC: The patient has weakness of the right side secondary to the stroke. The patient's speech is dysarthric and expressive aphasia and apraxia. Gait examination could not be tested. The patient was seen by Physical Therapy. The patient was not cooperative, combative and agitated with physical therapy; so physical therapy, ambulation therapy, occupational therapy and gait training could not be done. DIAGNOSTICS: Depakote level is low, which is 30. The patient was seen by Psychiatry, Neurology, Urology and Infectious Disease. Recommendations reviewed. IMPRESSION AND PLAN: 1. Multidrug-resistant Klebsiella pneumoniae urinary tract infection. 2. Yeast urinary tract infection and funguria. 3. Atrial fibrillation with slow ventricular response. 4. Hypertension. 5. Vascular dementia with severe behavioral disorders with agitation, combativeness and confusion. 6. History of cerebral infarct with right-sided paresis with apraxia, dysarthria and expressive aphasia. 7. Severe gait dysfunction and deconditioning. 8. Morbid obesity. 9. Voiding dysfunction. 10. Suprapubic cystostomy malfunction. 11. Status post suprapubic cystostomy revision. 12. History of lymphedema of the lower extremity with a history of venous stasis of the lower extremity. 13. Longstanding history of poor compliance and noncompliance. 14. Clostridium difficile-associated diarrhea and pseudomembranous colitis (resolved). 15. Hypertension. 16. Atrial fibrillation requiring anticoagulation. 17. Hypothyroidism. 18. Hyperlipidemia. 19. History of constipation. 20. Degenerative joint disease of the spine, knees and hips. 21. Possible delirium. 22. Combative, agitated and assaultive behavior; etiology unclear. 23. Poor compliance. 24. Recurrent urinary tract infection. 25. Voiding dysfunction. 26. Possible neurogenic bladder. 1. Vascular dementia with extreme and severe behavioral disorders. 2. Multidrug resistant Klebsiella pneumoniae urinary tract infection with funguria and yeast urinary tract infection. 3. Toxic metabolic encephalopathy. 4. Severe behavioral disorder with episodes of screaming, combative behavior. 5. High risk for fall. 6. Gait dysfunction. 7. Cerebral infarct with right hemiparesis. 8. Anticoagulation dependent atrial fibrillation. 9. Voiding dysfunction with suprapubic cystostomy placement. 10. History of cerebrovascular accident with right-sided hemiparesis with expressive aphasia, dysarthria, and apraxia. 11. Hypertension. 12. Atrial fibrillation with variable ventricular response. 13. Multidrug-resistance Klebsiella pneumoniae urinary tract infection. 14. Possible delirium. 15. Bilateral lower extremity lymphedema and history of venous stasis of the lower extremity. 16. Vascular dementia with severe behavioral disturbances and superimposed underlying toxic metabolic encephalopathy. 17. Voiding dysfunction. 18. Combative behavior. 1. Severe behavioral disorders with continued episodes of agitation, combativeness and yelling and screaming and severe behavior disorder. 2. Gram-negative ankita and yeast urinary tract infection and funguria. 3. Voiding dysfunction. 4. Suprapubic cystostomy malfunction and dysfunction, status post revision of the suprapubic cystostomy. 5. Neurogenic bladder. 6. History of cerebral infarct with right-sided paresis. 7. Expressive aphasia, dysarthria and apraxia. 8. Anticoagulation-dependent atrial fibrillation. 9. Congestive heart failure and dilated cardiomyopathy. 10. Pulmonary hypertension. 11. History of gastric bypass surgery. 12. Suprapubic cystostomy. 13. Clostridium difficile-associated diarrhea and pseudomembranous colitis (resolved). 14. Lower extremity lymphedema and venous stasis ulceration. 15. Morbid obesity. 16. Gait dysfunction. 17. Deconditioning. 18. Right hemiparesis. 20. History of constipation. 21. Degenerative joint disease of the spine, hips, knees. 22. History of longstanding noncompliance and poor compliance. 1. Suprapubic cystostomy tube malfunction. 2. Status post revision and replacement of the suprapubic cystostomy. 3. Voiding dysfunction. 4. Urinary incontinence and urinary retention. 5. Behavioral disorders with episodes of agitation, restlessness, combative behavior. 6. Cerebral infarct with right-sided paresis. 7. Dysarthria, expressive aphasia, and apraxia. 8. Poor compliance and noncompliance. 9. Hypertension. 10. Anticoagulation-dependent atrial fibrillation. 11. Morbid obesity. 12. History of bilateral lower extremity lymphedema and venous stasis. 13. Gait dysfunction. 14. Deconditioning. 15. Morbid obesity. 16. Hyperlipidemia. 17. Hypothyroidism. 18. History of gastric bypass surgery. 19. Degenerative joint disease of the spine, knees, and hips. 20. History of constipation. 21. Clostridium difficile-associated diarrhea and pseudomembranous colitis (resolving). 1. Behavioral disorder with episodes of agitation, confusion, combativeness. 2. Suprapubic cystostomy malfunction and dysfunction. 3. Status post suprapubic cystostomy revision with placement of the new 16-[place] two-way suprapubic cystostomy. 4. Urinary retention and incontinence. 5. Voiding dysfunction. 6. Hypertension. 7. Atrial fibrillation. 8. Morbid obesity with elevated body mass index of 47. 9. History of cerebral infarct with right-sided paresis. 10. Dysarthria, apraxia, expressive aphasia. 11. Chronic kidney disease stage 3. 12. Hyperbilirubinemia. 13. Morbid obesity. 14. History of bilateral lower extremity lymphedema and venous stasis. 15. Gait dysfunction. 16. Deconditioning. 17. Behavioral disorder. 18. Anticoagulation-dependent atrial fibrillation. 19. Hyperlipidemia. 20. History of hypothyroidism, history of hypovitaminosis D, history of anxiety disorder. 21. History of clostridium difficile associated diarrhea and pseudomembranous colitis (resolving). 1. Status post revision of the suprapubic cystostomy with placement of 16-[place] two-way suprapubic cystostomy. 2. Voiding dysfunction. 3. Neurogenic bladder. 4. Behavioral disorder with episodes of screaming, agitation and yelling. 5. Episodic confusion. 6. History of cerebral infarct with right-sided residual hemiparesis. 7. Morbid obesity. 8. History of anticoagulation requiring atrial fibrillation. 9. Dilated cardiomyopathy. 10. Pulmonary hypertension. 11. History of gastric bypass surgery. 12. Status post suprapubic cystostomy placement. 13. Urinary incontinence, urinary retention and voiding dysfunction. 14. Bilateral lower extremity lymphedema with history of MRSA cellulitis of the bilateral lower extremities venous stasis ulceration. 15. Morbid obesity. 16. Hypertension. 17. Elevated body mass index. 18. Gait dysfunction. 19. Longstanding history of noncompliance and poor compliance. 20. History of hypertension, hyperlipidemia, hypothyroidism. 1. Suprapubic cystostomy malfunction. 2. Status post revision and placement of 16-[place] two-way suprapubic cystostomy tube placement. 3. Voiding dysfunction. 4. Neurogenic bladder. 5. Urinary incontinence. 6. Behavioral disorder with agitation and screaming behavior. 7. History of cerebral infarct with right-sided residual weakness and hemiparesis. 8. Anticoagulation-dependent atrial fibrillation. 9. Morbid obesity. 10. Hypertension. 11. . 12. Morbid obesity, status post gastric bypass surgery. 13. Cardiomyopathy. 14. Hypothyroidism. 15. Expressive aphasia, dysarthria and apraxia. 16. Gait dysfunction. 17. Deconditioning. 18. Bilateral lower extremity lymphedema and venous stasis. 19. 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 20. History of constipation. 21. Clostridium deficit associated diarrhea and pseudomembranous colitis (resolving versus resolved). 23. Hyperlipidemia. 24. Hypothyroidism. 1. Suprapubic cystostomy malfunction and dysfunction. 2. Status post suprapubic cystostomy catheter change with 16-[place] two-way suprapubic cystostomy placement. 3. Gait dysfunction. 4. Deconditioning. 5. Morbid obesity. 6. History of cerebral infarct with residual right-sided weakness. 7. Expressive aphasia, apraxia, and dysarthria. 8. Longstanding chronic noncompliance and poor compliance. 9. Anticoagulation-dependent atrial fibrillation. 10. Cardiomyopathy. 11. Pulmonary hypertension. 12. Hypothyroidism. 13. Bilateral lower extremity lymphedema with history of venous stasis ulceration of the lower extremity. 14. Degenerative joint disease of the spine, hips, and knees. 15. Voiding dysfunction. 16. Possible neurogenic bladder. 17. History of constipation. 18. Clostridium difficile associated diarrhea and pseudomembranous colitis, presently on p.o. Vancocin. 19. History of dilated cardiomyopathy and systolic congestive heart failure. 20. Hyperlipidemia. 21. Hypertension. 1. Suprapubic cystostomy malfunction. 2. Voiding dysfunction with urinary retention and urinary incontinence. 3. Hypertension. 4. Granulocytosis. 5. Anticoagulation dependent atrial fibrillation. 6. Chronic kidney disease stage 3. 7. Morbid obesity. 8. Deconditioning. 9. Gait dysfunction. 10. 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 11. Longstanding history of poor and noncompliance. 12. Behavioral disorder. 13. Chronic bilateral lower extremity lymphedema. 14. Hyperlipidemia. 15. Hypothyroidism. 16. Clostridium difficile associated diarrhea and pseudomembranous colitis and (resolved). 17. Hypovitaminosis D. 18. Questionable anxiety disorder. 19. History of constipation. 1. Suprapubic cystostomy malfunction with questionable urinary incontinence from the suprapubic catheter site. 2. Hypertension. 3. Gait dysfunction. 4. Granulocytosis. 5. Chronic kidney disease, stage III. 6. Mild hyperbilirubinemia. 7. Morbid obesity. 8. History of cerebral infarct with residual right-sided weakness (almost resolved). 9. Clostridium difficile associated diarrhea with pseudomembranous colitis. 10. Behavioral disorder with agitation and combativeness. 11. Hypokalemia. 12. Anticoagulation requiring atrial fibrillation. 13. Hypothyroidism. 14. History of constipation. 15. Hypovitaminosis D. 16. Hyperlipidemia. 17. Questionable anxiety disorder. 1. Clostridium difficile associated diarrhea and pseudomembranous colitis (resolving). 2. Altered mental status with behavioral disorder with combative, aggressive behavior. 3. History of longstanding noncompliance. 4. Hypertension. 5. Deconditioning. 6. History of cerebral infarct with residual right-sided weakness (resolved). 7. Mild normocytic anemia. 8. Granulocytosis. 9. Anticoagulation-dependent atrial fibrillation. 10. Hypokalemia. 11. Status post acute kidney injury. 12. Mild hyperbilirubinemia. 13. Hypomagnesemia. 14. History of hypothyroidism. 15. History of hypovitaminosis D. 16. History of hyperlipidemia. 17. Proteinuria, hematuria, pyuria, bacteriuria. 18. Gait dysfunction. 19. History of bilateral lower extremity lymphedema and bilateral lower extremity venous stasis. 20. 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 21. Cholelithiasis. 22. Anterior abdominal wall muscular atrophy. 23. Incidental finding of cholelithiasis. 24. Morbid obesity. 25. Cardiomyopathy. 26. Pulmonary hypertension. 1. Persistent behavioral disorder with continuous and intermittent screaming and yelling and agitation. 2. Vascular type dementia and delirium. 3. Status post acute kidney injury (resolved). 4. Hypertension. 5. Hypokalemia. 6. Hypomagnesemia. 7. Chronic kidney disease stage III. 8. Anticoagulation requiring atrial fibrillation. 9. Mild normocytic anemia. 10. Granulocytosis. 11. History of hypothyroidism. 12. History of cardiomyopathy. 13. Longstanding history of poor compliance and noncompliance. 14. Gait dysfunction. 15. Proteinuria, microscopic hematuria, pyuria, bacteriuria. 16. Clostridium difficile associated diarrhea and pseudomembranous colitis. 17. Deconditioning. 18. Morbid obesity. 19. Voiding dysfunction and neurogenic bladder with status post suprapubic cystostomy. 20. Anticoagulation requiring atrial fibrillation. 21. Hyperlipidemia. 22. Hypothyroidism. 23. Hypovitaminosis D. 24. Agitation and combative behavior. 25. Vascular dementia with delirium. 1. Delirium versus possible vascular dementia. 2. Behavioral disorder, probably secondary to cerebral infarct. 3. Extremely poor compliance and noncompliance with history of longstanding noncompliance and poor compliance. 4. Gait dysfunction. 5. Morbid obesity. 6. History of cerebral infarct with right-sided residual hemiparesis and weakness. 7. Expressive aphasia, dysarthria, apraxia. 8. Extremely poor compliance with refusing to take medications, refusing to do physical therapy, refusing to be out of bed to chair. 9. Normocytic anemia. 10. Anticoagulation requiring atrial fibrillation. 11. Morbid obesity, status post gastric bypass surgery. 12. Neurogenic bladder and voiding dysfunction with status post suprapubic cystostomy placement. 13. Mild hypoalbuminemia. 14. Status post acute kidney injury. 15. Congestive heart failure. 16. Pulmonary hypertension. 17. Bilateral lower extremity lymphedema and venous stasis of the lower extremity. 18. Hyperlipidemia. 19. Hypertension. 20. Hypothyroidism. 21. Voiding dysfunction. 1. Severe behavioral disorder. 2. Agitated and combative behavior. 3. Delirium. 4. Vascular dementia. 5. Severe cerebral cortical atrophy and chronic microvascular ischemic disease of the brain on MRI of the brain. 6. Gait dysfunction. 7. Deconditioning. 8. Status post acute kidney injury. 9. Anticoagulation-dependent atrial fibrillation. 10. History of cerebral infarct with right-sided residual hemiparesis and weakness. 11. Pseudomembranous colitis with Clostridium difficile associated diarrhea (resolving). 12. Hypertension. 13. Morbid obesity, status post gastric bypass surgery. 14. Voiding dysfunction with neurogenic bladder, status post suprapubic cystostomy placement. 15. Gait dysfunction. 16. Deconditioning. 17. Uncooperative behavior. 18. History of longstanding poor compliance and noncompliance. 19. Atrial fibrillation. 20. Hyperlipidemia. 21. History of chronic constipation. 22. 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 23. History of bilateral lower extremity lymphedema and venous stasis. 1. Clostridium difficile associated diarrhea and colitis with Clostridium difficile toxin and antigen positive. 2. Delirium. 3. Vascular dementia. 4. Toxic metabolic encephalopathy. 5. Behavioral disorder. 6. Episodic agitation and noncompliance with medication treatment, etc. 7. Normocytic anemia. 8. Anticoagulation-dependent atrial fibrillation. 9. History of cerebrovascular infarct with right residual hemiparesis. 10. Expressive aphasia, dysarthria and apraxia. 11. Normocytic anemia. 12. Acute kidney injury with underlying chronic kidney disease stage 3 A and B. 13. Normocytic anemia. 14. Hypertension. 15. Atrial fibrillation. 16. Hypokalemia. 17. Hypomagnesemia. 18. Acute exacerbation of delirium and vascular dementia. 19. Right ventricular dysfunction with cardiorenal syndrome. 20. History of dilated cardiomyopathy and systolic congestive heart failure. 21. Gait dysfunction. 22. Bilateral lower extremity venous lymphedema. 23. Morbid obesity, history of gastric bypass surgery. 24. Neurogenic bladder with voiding dysfunction, status post suprapubic cystostomy. 25. History of hyperlipidemia. 26. History of chronic constipation. 27. History of degenerative joint disease of the spine, knees and hips. 28. Morbid obesity. 1. Episodic agitation and restlessness with possible behavioral disorder. 2. History of cerebrovascular accident with right-sided hemiparesis. 3. Questionable and possible Clostridium difficile associated diarrhea. 4. Normocytic anemia. 5. History of Clostridium difficile colitis. 6. Hypokalemia. 7. Acute kidney injury (resolving). 8. Hypomagnesemia. 9. History of hypothyroidism. 10. Episodic agitation and restlessness, probably secondary to aphasia, apraxia and dysarthria. 11. Cholelithiasis. 12. Right renal cyst. 13. History of gastric bypass. 14. Prostatomegaly. 15. Voiding dysfunction status post suprapubic cystostomy. 16. Old right frontal infarct. 17. Microvascular ischemic disease of the brain. 18. Cerebral cortical atrophy of the brain. 19. Decreased high-density lipoprotein. 1. Questionable altered mental status with possible behavioral disorder with combative and aggressive behavior. 2. Questionable Clostridium difficile associated diarrhea. 3. Mild normocytic anemia. 4. Granulocytosis. 5. Hypokalemia. 6. Chronic kidney disease stage 3. 7. Status post suprapubic cystostomy. 8. Proteinuria. 9. Microscopic hematuria, pyuria, bacteriuria. 10. History of left-sided cerebral cortical infarct with right hemiparesis. 11. Cardiomegaly. 12. Dilated cardiomyopathy. 13. Pulmonary hypertension. 14. Bilateral lower extremity venous stasis and lymphedema. 15. Deconditioning. 16. Gait dysfunction. 17. Morbid obesity. 18. Atrial fibrillation. 19. Expressive aphasia, dysarthria, apraxia. 20. Hypertension. 21. History of anxiety. 22. Hyperlipidemia. 23. Coumadin-dependent atrial fibrillation. 24. Hypovitaminosis D. 25. History of hypothyroidism. 26. History of constipation, history of hypokalemia, history of prostatic hypertrophy. 27. History of noncompliance. PLAN: At this time, the patient is to be continued on the IV antibiotics, Avycaz as per Infectious Disease. The patient is to be continued on Eliquis 2.5 twice a day, Demadex 5 mg daily. The patient is on Depakote 500 twice a day. The patient is on Seroquel 50 mg at bedtime. The patient is on Benadryl p.r.n. The patient is on Xanax as ordered by Psychiatry. The patient at present will be continued on the medications as per the MAR of today. The patient has also been recommended thiamine 100 mg daily by Neurology. The patient was seen by Psychiatry, Neurology and Infectious disease. Their therapeutic recommendations are as per the MAR. At present, in view of the patient's medical condition, neurological condition, psychiatric condition and urological condition, the patient requires 24-hour care and supervision, and the patient is in the process. The patient's case was referred to [facility] for long-term shelter placement. At present, the patient has a poor IV access and the patient has not been letting the nurses to place an IV line. Consideration for midline has been recommended by Infectious Disease. The patient will be continued on the above therapeutic intervention as per the MAR with followup by Urology, Infectious Disease, Neurology and Psychiatry. Dictated and electronically signed, not read. Rashad Brown MD MTDD
[2018-07-18] MEDS: Levothyroxine 25 MCG TAB PO SCH (08:29)
[2018-07-18] MEDS: Divalproex 125 mg EC Sprinkle Cap PO SCH ×3 (08:29→20:51)
[2018-07-18] MEDS: Cholecalciferol 1,000 INTLU TAB PO SCH ×2 (08:30→10:26)
[2018-07-18] MEDS: Nystatin 100,000 Units/gm Topical Pow(15 gm) TOP SCH ×2 (10:00→17:07)
[2018-07-18] MEDS: Ammonium Lactate 12% Lotion (225 g) EXT SCH ×2 (10:00→17:07)
--- NOTE | 2018-07-18 10:10 | CP.PCM.CON ---
<Anant Crandall - Last Filed: 07/18/18 10:04> History of Present Illness - History of Present Illness History of Present Illness: Nephrology Consult Note for Dr. Dwyer covering for Dr. Webb Patient is a 63 yo M with PMH of chronic systolic CHF with EF 25%, chronic atrial fibrillation, chronic lymphedema with chronic venous stasis, COPD, HTN, history of gastric bypass surgery, history of left knee surgery, right leg infected venous stasis ulcers, obstructive sleep apnea, right leg venous stasis ulcers history with previous growth of MRSA and Pseudomonas, history of CVA with residual aphasia presented to [facility] [place] due to leaking suprapubic catheter. He was subsequently admitted for replacement of his catheter and complicated UTI, which grew multidrug resistant Klebsiella and yeast. Catheter was replaced on 07/09/2018. Creatinine was at baseline on 07/13/18 at 1.5. However, creatinine was found to be elevated at 2.8 on 07/17/18. Thus, nephrology is consulted due to acute renal failure. ROS is unobtainable due to patient's current mental status. PMH: as above PSHx: Lap band, Left knee surgery Allergies: NKDA Social Hx: Former alcohol and substance abuse. Denies tobacco use Family Hx: Could not obtain from patient as he is non-verbal Review of Systems - Review of Systems Systems not reviewed;Unavailable: Altered Mental Status All systems: reviewed and no additional remarkable complaints except (ROS unobtainable 2/2 mental status.) Past Patient History - Infectious Disease Hx of Infectious Diseases: None - Tetanus Immunizations Tetanus Immunization: Unknown - Past Medical History & Family History Past Medical History?: Yes - Past Social History Smoking Status: Unknown If Ever Smoked - CARDIAC Hx Cardiac Disorders: Yes Hx Congestive Heart Failure: Yes Hx Hypertension: Yes - PULMONARY Hx Chronic Obstructive Pulmonary Disease (COPD): Yes - NEUROLOGICAL HX Cerebrovascular Accident: Yes (R sided weakness, expressive aphasia) - HEENT Hx HEENT Problems: Yes Other/Comment: Aphasia - RENAL Hx Chronic Kidney Disease: Yes - ENDOCRINE/METABOLIC Hx Endocrine Disorders: Yes Hx Hypothyroidism: Yes - HEMATOLOGICAL/ONCOLOGICAL Hx Blood Transfusions: Yes Hx Blood Transfusion Reaction: No - INTEGUMENTARY Hx Dermatological Problems: Yes (CELLULITIS TO LOWER EXTREMITY) Other/Comment: multiple bruise rue, ble dark brown discolored skin, multiple dry scratches and scabs ble, bruises to left knee and right knee and thigh, redness to b/l groin, under bad fold, brown discolored skin to lower abd b/l, suprapubic catheter intact lower abd, chronic lymphadema - MUSCULOSKELETAL/RHEUMATOLOGICAL Hx Arthritis: Yes - GASTROINTESTINAL Hx Gastroesophageal Reflux: Yes - GENITOURINARY/GYNECOLOGICAL Hx Genitourinary Disorders: Yes (pt currently has suprapubic cath) Hx Hematuria: Yes Hx Urinary Tract Infection: Yes Other/Comment: neurogenic bladder, retention - PSYCHIATRIC Hx Substance Use: No - SURGICAL HISTORY Hx Surgeries: Yes - ANESTHESIA Hx Anesthesia Reactions: No Hx Malignant Hyperthermia: No Meds Allergies/Adverse Reactions: Allergies Allergy/AdvReac Type Severity Reaction Status Date / Time No Known Allergies Allergy Verified 06/18/18 11:06 - Medications Medications: Current Medications Acetaminophen (Tylenol 325mg Tab) 650 mg PO Q6 PRN PRN Reason: TEMP>=99.5F Last Admin: 07/17/18 21:48 Dose: 650 mg Acetaminophen (Tylenol 650 Mg Supp) 650 mg RC Q6H PRN PRN Reason: TEMP>=99.5F Apixaban (Eliquis) 2.5 mg PO BID [facility]; Protocol Last Admin: 07/18/18 08:30 Dose: 2.5 mg Aspirin (Aspirin Chewable) 81 mg PO DAILY [facility] Last Admin: 07/17/18 10:02 Dose: 81 mg Atorvastatin Calcium (Lipitor) 40 mg PO HS [facility] Last Admin: 07/17/18 21:50 Dose: 40 mg Cholecalciferol (Vitamin D) 2,000 intlu PO DAILY [facility] Last Admin: 07/18/18 08:30 Dose: 2,000 intlu Diphenhydramine HCl (Benadryl) 25 mg PO Q8H PRN PRN Reason: Itching / Pruritus Last Admin: 07/18/18 08:30 Dose: 25 mg Divalproex Sodium (Depakote Sprinkles) 500 mg PO BID [facility]; Protocol Last Admin: 07/18/18 08:29 Dose: 500 mg Famotidine (Pepcid) 20 mg PO BID [facility] Last Admin: 07/18/18 08:29 Dose: 20 mg Heparin Sodium (Porcine) (Heparin) 5,000 units SC Q8 [facility]; Protocol Last Admin: 07/09/18 20:10 Dose: Not Given Fluconazole (Diflucan Iv 200 Mg/100 Ml Ns) 100 mls @ 100 mls/hr IVPB DAILY [facility]; Protocol Last Admin: 07/17/18 12:00 Dose: 100 mls/hr Ceftazidime/Avibactam 1.25 gm/ (Sodium Chloride) 100 mls @ 50 mls/hr IVPB Q8H [facility]; Protocol Stop: 07/23/18 17:16 Last Admin: 07/18/18 01:15 Dose: 50 mls/hr Sodium Chloride (Sodium Chloride 0.9%) 1,000 mls @ 80 mls/hr IV .[id number] [facility] Last Admin: 07/17/18 17:01 Dose: 80 mls/hr Lactic Acid (Lac-Hydrin 12% Lotion (225 G)) 0 gm EXT BID [facility] Last Admin: 07/17/18 18:26 Dose: 1 applic Levothyroxine Sodium (Synthroid) 25 mcg PO ACB [facility] Last Admin: 07/18/18 08:29 Dose: 25 mcg Lorazepam (Ativan) 0.5 mg PO Q12 PRN; Protocol PRN Reason: Agitation Last Admin: 07/18/18 08:29 Dose: 0.5 mg Metoprolol Tartrate (Lopressor) 25 mg PO BRKDIN [facility] Last Admin: 07/18/18 08:52 Dose: 25 mg Nystatin (Nystop Topical Powder) 0 gm TOP BID [facility] Last Admin: 07/17/18 18:27 Dose: 1 applic Quetiapine Fumarate (Seroquel) 12.5 mg PO BID [facility]; Protocol Last Admin: 07/18/18 08:30 Dose: 12.5 mg Quetiapine Fumarate (Seroquel) 25 mg PO HS [facility]; Protocol Last Admin: 07/17/18 21:48 Dose: 25 mg Thiamine HCl (Vitamin B1 Inj) 100 mg IM DAILY [facility] Last Admin: 07/17/18 10:00 Dose: 100 mg Vancomycin HCl (Vancocin 25 Mg/Ml (Oral Use)) 250 mg PO QID [facility]; Protocol Last Admin: 07/17/18 22:55 Dose: 250 mg Ziprasidone (Geodon Inj) 10 mg IM Q12 PRN; Protocol PRN Reason: Agitation Last Admin: 07/18/18 09:01 Dose: 10 mg Physical Exam - Constitutional Appears: Confused - Head Exam Head Exam: NORMAL INSPECTION - Eye Exam Eye Exam: Normal appearance - ENT Exam ENT Exam: Mucous Membranes Moist, Normal Exam - Neck Exam Neck exam: Positive for: Normal Inspection - Respiratory Exam Respiratory Exam: Clear to Auscultation Bilateral. absent: Rales, Rhonchi, Wheezes - Cardiovascular Exam Cardiovascular Exam: RRR, +S1, +S2. absent: Gallop, Rubs, Systolic Murmur - GI/Abdominal Exam GI & Abdominal Exam: Soft. absent: Guarding, Rebound, Tenderness Additional comments: suprapubic catheter in place with brownish-yellow urine in bag - Extremities Exam Additional comments: hyperpigmentation of lower extremities consistent with chronic venous stasis - Back Exam Back exam: NORMAL INSPECTION - Skin Skin Exam: Normal Color Results - Vital Signs Recent Vital Signs: Last Vital Signs Temp 98.2 F 07/18/18 07:00 Pulse 60 07/18/18 07:00 Resp 20 07/18/18 07:00 BP 168/92 H 07/18/18 07:00 Pulse Ox 96 07/18/18 07:00 - Labs Result Diagrams: 07/17/18 09:00 07/17/18 09:00 Labs: Laboratory Results - last 24 hr 07/17/18 07/17/18 09:00 09:00 WBC 5.9 RBC 4.10 Hgb 12.7 L D Hct 39.4 L MCV 96.1 MCH 31.0 MCHC 32.2 RDW 14.5 Plt Count 142 MPV 9.7 Sodium 142 Potassium 4.6 Chloride 106 Carbon Dioxide 28 Anion Gap 12 BUN 22 H Creatinine 2.8 H Est GFR ( Amer) 28 Est GFR (Non-Af Amer) 23 Random Glucose 83 Calcium 8.8 Total Bilirubin 1.3 AST 26 ALT 27 Alkaline Phosphatase 69 Total Protein 6.3 Albumin 3.1 Globulin 3.1 Albumin/Globulin Ratio 1.0 L Assessment & Plan - Assessment and Plan (Free Text) Assessment: 63 yo M with PMH of chronic systolic CHF with EF 25%, chronic atrial fibrillation, chronic lymphedema with chronic venous stasis, COPD, HTN, history of gastric bypass surgery, history of left knee surgery, right leg infected venous stasis ulcers, obstructive sleep apnea, right leg venous stasis ulcers history with previous growth of MRSA and Pseudomonas, history of CVA with residual aphasia admitted to [facility] [place] for malfunctioning suprapubic catheter. Nephrology consulted for acute renal failure. Plan: 1. Acute renal failure - Rapid increase in creatinine from 1.5 to 2.8 most likely 2/2 to obstruction - Suprapubic catheter leaking when flushed per nursing staff - Urology following, will likely need cystostomy tube replaced 2. UTI - UA positive - Urine culture positive for Klebsiella and Pseudomonas - Blood culture positive for gram positive cocci; possible contamination - Abx per ID, renally dosed - ID following 3. HTN - Metoprolol 4. Chronic a-fib - Cont eliquis, renally dosed Patient discussed in detail with attending. Ismael Crandall, DO PGY2 <Jed Dwyer - Last Filed: 07/18/18 19:31> Meds - Medications Medications: Current Medications Acetaminophen (Tylenol 325mg Tab) 650 mg PO Q6 PRN PRN Reason: TEMP>=99.5F Last Admin: 07/17/18 21:48 Dose: 650 mg Acetaminophen (Tylenol 650 Mg Supp) 650 mg RC Q6H PRN PRN Reason: TEMP>=99.5F Apixaban (Eliquis) 2.5 mg PO BID [facility]; Protocol Last Admin: 07/18/18 10:25 Dose: Not Given Aspirin (Aspirin Chewable) 81 mg PO DAILY [facility] Last Admin: 07/18/18 13:05 Dose: 81 mg Atorvastatin Calcium (Lipitor) 40 mg PO HS [facility] Last Admin: 07/17/18 21:50 Dose: 40 mg Cholecalciferol (Vitamin D) 2,000 intlu PO DAILY [facility] Last Admin: 07/18/18 10:26 Dose: Not Given Diphenhydramine HCl (Benadryl) 25 mg PO Q8H PRN PRN Reason: Itching / Pruritus Last Admin: 07/18/18 08:30 Dose: 25 mg Divalproex Sodium (Depakote Sprinkles) 500 mg PO BID [facility]; Protocol Last Admin: 07/18/18 10:24 Dose: Not Given Famotidine (Pepcid) 20 mg PO BID [facility] Last Admin: 07/18/18 17:07 Dose: Not Given Heparin Sodium (Porcine) (Heparin) 5,000 units SC Q8 [facility]; Protocol Last Admin: 07/09/18 20:10 Dose: Not Given Fluconazole (Diflucan Iv 200 Mg/100 Ml Ns) 100 mls @ 100 mls/hr IVPB DAILY [facility]; Protocol Last Admin: 07/18/18 13:05 Dose: 100 mls/hr Ceftazidime/Avibactam 1.25 gm/ (Sodium Chloride) 100 mls @ 50 mls/hr IVPB Q8H [facility]; Protocol Stop: 07/23/18 17:16 Last Admin: 07/18/18 18:51 Dose: 50 mls/hr Sodium Chloride (Sodium Chloride 0.9%) 1,000 mls @ 80 mls/hr IV .[id number] [facility] Last Admin: 07/17/18 17:01 Dose: 80 mls/hr Lactic Acid (Lac-Hydrin 12% Lotion (225 G)) 0 gm EXT BID [facility] Last Admin: 07/18/18 17:07 Dose: Not Given Levothyroxine Sodium (Synthroid) 25 mcg PO ACB [facility] Last Admin: 07/18/18 08:29 Dose: 25 mcg Lorazepam (Ativan) 0.5 mg PO Q12 PRN; Protocol PRN Reason: Agitation Last Admin: 07/18/18 08:29 Dose: 0.5 mg Metoprolol Tartrate (Lopressor) 25 mg PO BRKDIN [facility] Last Admin: 07/18/18 17:07 Dose: Not Given Nystatin (Nystop Topical Powder) 0 gm TOP BID [facility] Last Admin: 07/18/18 17:07 Dose: Not Given Quetiapine Fumarate (Seroquel) 12.5 mg PO BID [facility]; Protocol Last Admin: 07/18/18 10:26 Dose: Not Given Quetiapine Fumarate (Seroquel) 50 mg PO HS [facility]; Protocol Thiamine HCl (Vitamin B1 Inj) 100 mg IM DAILY [facility] Last Admin: 07/18/18 17:07 Dose: Not Given Ziprasidone (Geodon Inj) 10 mg IM Q12 PRN; Protocol PRN Reason: Agitation Last Admin: 07/18/18 09:01 Dose: 10 mg Results - Vital Signs Recent Vital Signs: Last Vital Signs Temp 98.0 F 07/18/18 14:00 Pulse 64 07/18/18 14:00 Resp 20 07/18/18 14:00 BP 132/89 07/18/18 14:00 Pulse Ox 100 07/18/18 14:00 - Labs Result Diagrams: 07/18/18 10:15 07/18/18 10:15 Labs: Laboratory Results - last 24 hr 07/18/18 07/18/18 10:15 10:15 WBC 5.2 RBC 4.12 Hgb 12.6 L Hct 38.6 L MCV 93.7 MCH 30.6 MCHC 32.6 RDW 14.2 Plt Count 131 MPV 9.5 Gran % 69.0 H Lymph % (Auto) 17.2 L [place] % (Auto) 10.5 H Eos % (Auto) 3.1 Baso % (Auto) 0.2 Gran # 3.61 Lymph # (Auto) 0.9 L [place] # (Auto) 0.6 Eos # (Auto) 0.2 Baso # (Auto) 0.01 Sodium 142 Potassium 3.6 Chloride 106 Carbon Dioxide 27 Anion Gap 13 BUN 20 Creatinine 2.3 H Est GFR ( Amer) 35 Est GFR (Non-Af Amer) 29 Random Glucose 105 Calcium 8.5 Phosphorus 3.8 Magnesium 1.7 Total Bilirubin 1.2 Direct Bilirubin 0.2 AST 19 ALT 25 Alkaline Phosphatase 69 Total Protein 6.4 Albumin 3.3 Globulin 3.1 Albumin/Globulin Ratio 1.1 Assessment & Plan - Assessment and Plan (Free Text) Plan: Pt seen and examined. I have reviewed the note of the medical observer and agree with it. I have discussed the assessment and plan with the resident. I have reviewed the patient's labs and medications. Pt with TROY due to malfunction of his catheter. The catheter was not draining according to the nurse and had to be flushed. Urology is aware of the catheter. Pt is on Abx for UTI. He is not able to give much histroy due to his underlying conditions. He has A fib and is on Eliquis. Will need to follow labs. I reviewed the CT of the abd/pelvis. This is renal coverage for Dr Webb.
[2018-07-18] MEDS: Vancomycin 25 MG/ML PO SCH (10:26)
--- NOTE | 2018-07-18 10:28 | CT ---
Date of service: 07/17/2018 PROCEDURE: CT Abdomen and Pelvis without intravenous contrast HISTORY: creatinine elevation, rule out obstruction COMPARISON: 07/01/2018 TECHNIQUE: Without contrast.. Contrast dose: Radiation dose: Total exam DLP = 1265.2 mGy-cm. This CT exam was performed using one or more of the following dose reduction techniques: Automated exposure control, adjustment of the mA and/or kV according to patient size, and/or use of iterative reconstruction technique. FINDINGS: LOWER THORAX: There is a lap band around the proximal stomach LIVER: Unremarkable. No gross lesion or ductal dilatation. GALLBLADDER AND BILE DUCTS: 8 mm gallstone. No gallbladder inflammation PANCREAS: Unremarkable. No gross lesion or ductal dilatation. SPLEEN: Unremarkable. ADRENALS: Unremarkable. No mass. KIDNEYS AND URETERS: Unremarkable. No hydronephrosis. No solid mass. Simple cysts are seen in the right kidney. There is no evidence of hydronephrosis. No evidence of urolithiasis. VASCULATURE: Unremarkable. No aortic aneurysm. No aortic atherosclerotic calcification or mural plaque present. BOWEL: Unremarkable. No obstruction. No gross mural thickening. APPENDIX: Unremarkable. Normal appendix. PERITONEUM: Unremarkable. No free fluid. No free air. LYMPH NODES: Unremarkable. No enlarged lymph nodes. BLADDER: A suprapubic catheter is seen in the bladder. The bladder is decompressed. REPRODUCTIVE: Unremarkable. BONES: No acute fracture. OTHER FINDINGS: The report concurs with the preliminary [facility] report IMPRESSION: No acute findings. No evidence of urolithiasis
--- NOTE | 2018-07-18 10:32 | US ---
Date of service: 07/17/2018 PROCEDURE: Urinary bladder ultrasound HISTORY: creatinine elevation COMPARISON: None TECHNIQUE: Standard protocol for this study/examination. FINDINGS: Indwelling suprapubic catheter. The bladder is empty. IMPRESSION: Nondiagnostic examination of the bladder.
[2018-07-18 10:38] LABS: BASO # 0.01 K/mm3 (0.0-2.0); BASO % 0.2 % (0.0-3.0); EOS # 0.2 (0.0-0.7); EOS % 3.1 % (1.5-5.0); GRAN # 3.61 (1.4-6.5); HEMOGLOBIN 12.6 g/dL (14.0-18.0); LYMPH # 0.9 (1.2-3.4); LYMPH % 17.2 % (22.0-35.0); MEAN CELL VOLUME 93.7 fl (80.0-105.0); MEAN CORPUSCULAR HEMOGLOBIN 30.6 pg (25.0-35.0); MEAN CORPUSCULAR HGB CONC 32.6 g/dl (31.0-37.0); MEAN PLATELET VOLUME 9.5 fl (7.0-11.0); MONO # 0.6 (0.1-0.6); MONO % 10.5 % (1.0-6.0); RBC 4.12 10^6/uL (3.5-6.1); RED CELL DISTRIBUTION WIDTH 14.2 % (11.5-14.5); WHITE BLOOD COUNT 5.2 10^3/uL (4.5-11.0)
[2018-07-18 10:42] LABS: ALB/GLOB RATIO 1.1 (1.1-1.8); ALBUMIN 3.3 g/dL (3.0-4.8); BILIRUBIN,DIRECT 0.2 mg/dL (0.0-0.4); CALCIUM 8.5 mg/dL (8.4-10.5)
[2018-07-18] MEDS ORDERED: Vancomycin 2 GM in Sodium Chloride 0.9% 500 ML IVPB ONE (13:03)
--- NOTE | 2018-07-18 13:04 | CP.PCM.PN ---
Subjective - Date & Time of Evaluation Date of Evaluation: 07/18/18 Time of Evaluation: 11:00 - Subjective Subjective: Comfortable in bed, no fevers, not in distress but at times agitated. Objective - Vital Signs/Intake and Output Vital Signs (last 24 hours): Temp Pulse Resp BP Pulse Ox 98.2 F 64 20 138/58 L 100 07/17/18 14:00 07/17/18 14:00 07/17/18 14:00 07/17/18 14:00 07/17/18 14:00 Intake and Output: 07/17/18 07/17/18 06:59 18:59 Intake Total 360 Output Total 365 Balance -5 - Medications Medications: Current Medications Acetaminophen (Tylenol 325mg Tab) 650 mg PO Q6 PRN PRN Reason: TEMP>=99.5F Last Admin: 07/16/18 21:22 Dose: 650 mg Acetaminophen (Tylenol 650 Mg Supp) 650 mg RC Q6H PRN PRN Reason: TEMP>=99.5F Apixaban (Eliquis) 2.5 mg PO BID [facility]; Protocol Last Admin: 07/17/18 10:01 Dose: 2.5 mg Aspirin (Aspirin Chewable) 81 mg PO DAILY [facility] Last Admin: 07/17/18 10:02 Dose: 81 mg Atorvastatin Calcium (Lipitor) 40 mg PO HS [facility] Last Admin: 07/16/18 21:22 Dose: 40 mg Cholecalciferol (Vitamin D) 2,000 intlu PO DAILY [facility] Last Admin: 07/17/18 10:00 Dose: 2,000 intlu Diphenhydramine HCl (Benadryl) 25 mg PO Q8H PRN PRN Reason: Itching / Pruritus Last Admin: 07/17/18 12:50 Dose: 25 mg Divalproex Sodium (Depakote Sprinkles) 500 mg PO BID [facility]; Protocol Last Admin: 07/17/18 10:02 Dose: 500 mg Famotidine (Pepcid) 20 mg PO BID [facility] Last Admin: 07/17/18 10:02 Dose: 20 mg Heparin Sodium (Porcine) (Heparin) 5,000 units SC Q8 [facility]; Protocol Last Admin: 07/09/18 20:10 Dose: Not Given Fluconazole (Diflucan Iv 200 Mg/100 Ml Ns) 100 mls @ 100 mls/hr IVPB DAILY [facility]; Protocol Last Admin: 07/17/18 12:00 Dose: 100 mls/hr Ceftazidime/Avibactam 1.25 gm/ (Sodium Chloride) 100 mls @ 50 mls/hr IVPB Q8H [facility]; Protocol Stop: 07/23/18 17:16 Last Admin: 07/17/18 09:59 Dose: 50 mls/hr Sodium Chloride (Sodium Chloride 0.9%) 1,000 mls @ 80 mls/hr IV .[id number] [facility] Lactic Acid (Lac-Hydrin 12% Lotion (225 G)) 0 gm EXT BID [facility] Last Admin: 07/17/18 10:03 Dose: 1 applic Levothyroxine Sodium (Synthroid) 25 mcg PO ACB [facility] Last Admin: 07/17/18 10:01 Dose: 25 mcg Lorazepam (Ativan) 0.5 mg PO Q12 PRN; Protocol PRN Reason: Agitation Last Admin: 07/17/18 15:01 Dose: 0.5 mg Metoprolol Tartrate (Lopressor) 25 mg PO BRKDIN [facility] Nystatin (Nystop Topical Powder) 0 gm TOP BID [facility] Last Admin: 07/17/18 10:02 Dose: 1 applic Quetiapine Fumarate (Seroquel) 12.5 mg PO BID [facility]; Protocol Quetiapine Fumarate (Seroquel) 25 mg PO HS [facility]; Protocol Thiamine HCl (Vitamin B1 Inj) 100 mg IM DAILY [facility] Last Admin: 07/17/18 10:00 Dose: 100 mg Vancomycin HCl (Vancocin 25 Mg/Ml (Oral Use)) 250 mg PO QID [facility]; Protocol Last Admin: 07/17/18 09:59 Dose: 250 mg Ziprasidone (Geodon Inj) 10 mg IM Q12 PRN; Protocol PRN Reason: Agitation Last Admin: 07/17/18 14:53 Dose: 10 mg - Labs Labs: 07/17/18 09:00 07/17/18 09:00 PT 16.5 SECONDS (9.4-12.5) H 07/08/18 14:45 INR 1.44 07/08/18 14:45 APTT 32.4 Seconds (25.1-36.5) 07/08/18 14:45 - Constitutional Appears: Chronically Ill - Head Exam Head Exam: NORMAL INSPECTION - Neck Exam Neck Exam: absent: Meningismus - Respiratory Exam Respiratory Exam: Decreased Breath Sounds - Cardiovascular Exam Cardiovascular Exam: +S1, +S2 - GI/Abdominal Exam GI & Abdominal Exam: Soft. absent: Tenderness Assessment and Plan - Assessment and Plan (Free Text) Plan: Assessment consider complicated UTI with multidrug-resistant Klebsiella and yeast in this patient with suprapubic [place] catheter use - just changed on this admission gram positive cocci in clusters in 2 of 4 blood cx bottles - R/O contamination history of right leg infected venous stasis ulcers, with MRSA and Pseudomonas acute CVA with right sided weakness and residual aphasia S/P tPA infusion history of left lower extremity skin and skin structure infection with Klebsiella and MRSA in a patient with chronic venous stasis ulcers with no evidence of abscess or osteomyelitis on MRI, clinically improving Probable CHF exacerbation chronic systolic CHF with EF 25% chronic atrial fibrillation chronic lymphedema with chronic venous stasis COPD HTN history of gastric bypass surgery history of left knee surgery Plan will continue Avycaz day 3 and will continue Diflucan - repeat urine cx showing Pseudomonas and Klebsiella and we are awaiting identification and sensitivities - will need 7-10 days of antibiotics follow up repeat blood cx and will give a dose of IV Vancomycin will continue to monitor clinically
[2018-07-18] MEDS: Fluconazole IV 200mg/100 ml NS 100 ML IVPB SCH (13:05)
--- NOTE | 2018-07-18 13:19 | US ---
Date of service: 07/17/2018 PROCEDURE: Ultrasound of the Kidneys HISTORY: Elevated creatinine. COMPARISON: 06/19/2018 renal ultrasound. TECHNIQUE: Sonogram of the kidneys. FINDINGS: RIGHT KIDNEY: Measures: 4.6 x 9.3 cm. Normal in size, contour and echogenicity. No stone, solid mass lesion or hydronephrosis visualized. Upper pole cyst 2.1 x 3.2 cm LEFT KIDNEY: Measures: 6.3 x 10.8 cm. Normal in size, contour and echogenicity. No stone, solid mass lesion or hydronephrosis visualized. OTHER FINDINGS: None. IMPRESSION: No significant or acute findings to account for/ related to the clinical presentation. No significant interval change compared to the prior examination(s). Additional benign and/or incidental findings described above. Concordant findings (preliminary report) provided by [facility].
--- NOTE | 2018-07-18 15:30 | PN ---
DATE: 07/18/2018 SUBJECTIVE: The patient is seen in room 576, bed 1. The patient is awake, responsive, restless, agitated and the patient is attempting to climb out of the bed from the left side with his left leg hanging out of the bed rail. The patient is also yelling and screaming at me. The patient is attempting to climb out of the bed with the left leg hanging out of the bed. The patient was verbally cautioned about not to climb out, so the patient moved his left leg inside the bed. The patient does have a suprapubic catheter, which is connected to the leg bag according to the patient's nurse. The suprapubic catheter was flushed by Dr. Nance this morning and is draining dark-color urine. Overnight nurse's notes were reviewed. The patient is still having episodes of agitation, yelling, screaming. The patient underwent a midline placement. PHYSICAL EXAMINATION: VITAL SIGNS: T-max 98.2; heart rate 60; blood pressure 168/90, 168/92, 136/58; respirations 20; O2 sat 96%. GENERAL: The patient is seen lying in the bed in room 576. The patient is awake, responsive. HEENT: Head examination normocephalic, atraumatic. HEENT examination shows pinkish conjunctivae. Dry oral mucosa. No neck rigidity. CHEST: Symmetrical. LUNGS: Shows no audible rales or crackles. Questionable decreased breath sound at the left base. CARDIOVASCULAR: S1, S2. Irregular rhythm. Positive systolic murmur, left second intercostal space, right second intercostal space. ABDOMEN: Obese. Positive bowel sound. Positive suprapubic cystostomy connected to the leg bag. Draining dark-colored urine. GENITALIA: Male. Positive diaper noted. EXTREMITY: Shows positive chronic skin changes of the lymphedema of the lower extremity. MUSCULOSKELETAL: Shows elevated body mass index. NEUROLOGICAL: The patient has apraxia, dysarthria, expressive aphasia and positive weakness of the right side. Gait examination could not be tested. LABORATORY DATA: The patient's diagnostics from today, WBC 5.2, hemoglobin and hematocrit 12.6 and 38.6, platelet 131. Granulocytes 69. Sodium 142, potassium is 3.6, chloride 106, CO2 of 27. BUN 20; creatinine is 2.3 , own from 2.8 from yesterday. The patient's BUN and creatinine were normal 4 days ago. Glucose 105, calcium 8.5, phosphorus 3.8, magnesium 1.7. LFTs are within normal limit. Urinalysis shows greater than 300 proteinuria, microscopic hematuria, pyuria, bacteriuria, positive leukocyte esterase, positive nitrite. Urine cultures are growing yeast with multidrug resistance, Klebsiella pneumoniae and Pseudomonas aeruginosa. Blood cultures from 07/15/2018 are growing gram-positive cocci in clusters. CAT scan of the abdomen and pelvis shows status post lap band, gallstones, right renal cyst, positive suprapubic catheter. Renal ultrasound also and bladder ultrasound shows right renal cyst. No hydronephrosis. No obstructive uropathy. IMPRESSION AND PLAN: 1. Acute renal failure and acute kidney injury, etiology undetermined. 2. Hypertension. 3. Anemia. 4. Granulocytosis. 5. Gram-positive cocci in clusters bacteremia and sepsis. 6. Multidrug resistant Klebsiella pneumoniae urinary tract infection and Pseudomonas aeruginosa urinary tract infection. 7. Funguria. 8. Yeast urinary tract infection. 9. Proteinuria, microscopic hematuria, pyuria, bacteriuria. 10. Acute kidney injury (slow resolving). 11. Severe gait dysfunction with right-sided hemiparesis. 12. History of cerebral infarct with right hemiparesis. 14. Agitated, restless, combative behavior and behavioral disorder. 15. Normocytic anemia. 16. Status post lab lap band. 17. Cholelithiasis. 18. Right renal cyst. 19. Voiding dysfunction with suprapubic cystostomy placement and revision secondary to suprapubic cystostomy malfunction. 20. Deconditioning. 22. Gait dysfunction. 23. Anticoagulation requiring atrial fibrillation. 24. Hypertension. 25. Atrial fibrillation with slow ventricular response. 26. Pseudomembranous colitis with Clostridium difficile associated diarrhea. 27. Bilateral lower extremity lymphedema with history of bilateral lower extremity venous stasis. 1. Multidrug-resistant Klebsiella pneumoniae urinary tract infection. 2. Yeast urinary tract infection and funguria. 3. Atrial fibrillation with slow ventricular response. 4. Hypertension. 5. Vascular dementia with severe behavioral disorders with agitation, combativeness and confusion. 6. History of cerebral infarct with right-sided paresis with apraxia, dysarthria and expressive aphasia. 7. Severe gait dysfunction and deconditioning. 8. Morbid obesity. 9. Voiding dysfunction. 10. Suprapubic cystostomy malfunction. 11. Status post suprapubic cystostomy revision. 12. History of lymphedema of the lower extremity with a history of venous stasis of the lower extremity. 13. Longstanding history of poor compliance and noncompliance. 14. Clostridium difficile-associated diarrhea and pseudomembranous colitis (resolved). 15. Hypertension. 16. Atrial fibrillation requiring anticoagulation. 17. Hypothyroidism. 18. Hyperlipidemia. 19. History of constipation. 20. Degenerative joint disease of the spine, knees and hips. 21. Possible delirium. 22. Combative, agitated and assaultive behavior; etiology unclear. 23. Poor compliance. 24. Recurrent urinary tract infection. 25. Voiding dysfunction. 26. Possible neurogenic bladder. 1. Vascular dementia with extreme and severe behavioral disorders. 2. Multidrug resistant Klebsiella pneumoniae urinary tract infection with funguria and yeast urinary tract infection. 3. Toxic metabolic encephalopathy. 4. Severe behavioral disorder with episodes of screaming, combative behavior. 5. High risk for fall. 6. Gait dysfunction. 7. Cerebral infarct with right hemiparesis. 8. Anticoagulation dependent atrial fibrillation. 9. Voiding dysfunction with suprapubic cystostomy placement. 10. History of cerebrovascular accident with right-sided hemiparesis with expressive aphasia, dysarthria, and apraxia. 11. Hypertension. 12. Atrial fibrillation with variable ventricular response. 13. Multidrug-resistance Klebsiella pneumoniae urinary tract infection. 14. Possible delirium. 15. Bilateral lower extremity lymphedema and history of venous stasis of the lower extremity. 16. Vascular dementia with severe behavioral disturbances and superimposed underlying toxic metabolic encephalopathy. 17. Voiding dysfunction. 18. Combative behavior. 1. Severe behavioral disorders with continued episodes of agitation, combativeness and yelling and screaming and severe behavior disorder. 2. Gram-negative ankita and yeast urinary tract infection and funguria. 3. Voiding dysfunction. 4. Suprapubic cystostomy malfunction and dysfunction, status post revision of the suprapubic cystostomy. 5. Neurogenic bladder. 6. History of cerebral infarct with right-sided paresis. 7. Expressive aphasia, dysarthria and apraxia. 8. Anticoagulation-dependent atrial fibrillation. 9. Congestive heart failure and dilated cardiomyopathy. 10. Pulmonary hypertension. 11. History of gastric bypass surgery. 12. Suprapubic cystostomy. 13. Clostridium difficile-associated diarrhea and pseudomembranous colitis (resolved). 14. Lower extremity lymphedema and venous stasis ulceration. 15. Morbid obesity. 16. Gait dysfunction. 17. Deconditioning. 18. Right hemiparesis. 20. History of constipation. 21. Degenerative joint disease of the spine, hips, knees. 22. History of longstanding noncompliance and poor compliance. 1. Suprapubic cystostomy tube malfunction. 2. Status post revision and replacement of the suprapubic cystostomy. 3. Voiding dysfunction. 4. Urinary incontinence and urinary retention. 5. Behavioral disorders with episodes of agitation, restlessness, combative behavior. 6. Cerebral infarct with right-sided paresis. 7. Dysarthria, expressive aphasia, and apraxia. 8. Poor compliance and noncompliance. 9. Hypertension. 10. Anticoagulation-dependent atrial fibrillation. 11. Morbid obesity. 12. History of bilateral lower extremity lymphedema and venous stasis. 13. Gait dysfunction. 14. Deconditioning. 15. Morbid obesity. 16. Hyperlipidemia. 17. Hypothyroidism. 18. History of gastric bypass surgery. 19. Degenerative joint disease of the spine, knees, and hips. 20. History of constipation. 21. Clostridium difficile-associated diarrhea and pseudomembranous colitis (resolving). 1. Behavioral disorder with episodes of agitation, confusion, combativeness. 2. Suprapubic cystostomy malfunction and dysfunction. 3. Status post suprapubic cystostomy revision with placement of the new 16-Namibian two-way suprapubic cystostomy. 4. Urinary retention and incontinence. 5. Voiding dysfunction. 6. Hypertension. 7. Atrial fibrillation. 8. Morbid obesity with elevated body mass index of 47. 9. History of cerebral infarct with right-sided paresis. 10. Dysarthria, apraxia, expressive aphasia. 11. Chronic kidney disease stage 3. 12. Hyperbilirubinemia. 13. Morbid obesity. 14. History of bilateral lower extremity lymphedema and venous stasis. 15. Gait dysfunction. 16. Deconditioning. 17. Behavioral disorder. 18. Anticoagulation-dependent atrial fibrillation. 19. Hyperlipidemia. 20. History of hypothyroidism, history of hypovitaminosis D, history of anxiety disorder. 21. History of clostridium difficile associated diarrhea and pseudomembranous colitis (resolving). 1. Status post revision of the suprapubic cystostomy with placement of 16-[place] two-way suprapubic cystostomy. 2. Voiding dysfunction. 3. Neurogenic bladder. 4. Behavioral disorder with episodes of screaming, agitation and yelling. 5. Episodic confusion. 6. History of cerebral infarct with right-sided residual hemiparesis. 7. Morbid obesity. 8. History of anticoagulation requiring atrial fibrillation. 9. Dilated cardiomyopathy. 10. Pulmonary hypertension. 11. History of gastric bypass surgery. 12. Status post suprapubic cystostomy placement. 13. Urinary incontinence, urinary retention and voiding dysfunction. 14. Bilateral lower extremity lymphedema with history of MRSA cellulitis of the bilateral lower extremities venous stasis ulceration. 15. Morbid obesity. 16. Hypertension. 17. Elevated body mass index. 18. Gait dysfunction. 19. Longstanding history of noncompliance and poor compliance. 20. History of hypertension, hyperlipidemia, hypothyroidism. 1. Suprapubic cystostomy malfunction. 2. Status post revision and placement of 16-[place] two-way suprapubic cystostomy tube placement. 3. Voiding dysfunction. 4. Neurogenic bladder. 5. Urinary incontinence. 6. Behavioral disorder with agitation and screaming behavior. 7. History of cerebral infarct with right-sided residual weakness and hemiparesis. 8. Anticoagulation-dependent atrial fibrillation. 9. Morbid obesity. 10. Hypertension. 11. . 12. Morbid obesity, status post gastric bypass surgery. 13. Cardiomyopathy. 14. Hypothyroidism. 15. Expressive aphasia, dysarthria and apraxia. 16. Gait dysfunction. 17. Deconditioning. 18. Bilateral lower extremity lymphedema and venous stasis. 19. 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 20. History of constipation. 21. Clostridium deficit associated diarrhea and pseudomembranous colitis (resolving versus resolved). 23. Hyperlipidemia. 24. Hypothyroidism. 1. Suprapubic cystostomy malfunction and dysfunction. 2. Status post suprapubic cystostomy catheter change with 16-[place]ian two-way suprapubic cystostomy placement. 3. Gait dysfunction. 4. Deconditioning. 5. Morbid obesity. 6. History of cerebral infarct with residual right-sided weakness. 7. Expressive aphasia, apraxia, and dysarthria. 8. Longstanding chronic noncompliance and poor compliance. 9. Anticoagulation-dependent atrial fibrillation. 10. Cardiomyopathy. 11. Pulmonary hypertension. 12. Hypothyroidism. 13. Bilateral lower extremity lymphedema with history of venous stasis ulceration of the lower extremity. 14. Degenerative joint disease of the spine, hips, and knees. 15. Voiding dysfunction. 16. Possible neurogenic bladder. 17. History of constipation. 18. Clostridium difficile associated diarrhea and pseudomembranous colitis, presently on p.o. Vancocin. 19. History of dilated cardiomyopathy and systolic congestive heart failure. 20. Hyperlipidemia. 21. Hypertension. 1. Suprapubic cystostomy malfunction. 2. Voiding dysfunction with urinary retention and urinary incontinence. 3. Hypertension. 4. Granulocytosis. 5. Anticoagulation dependent atrial fibrillation. 6. Chronic kidney disease stage 3. 7. Morbid obesity. 8. Deconditioning. 9. Gait dysfunction. 10. 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 11. Longstanding history of poor and noncompliance. 12. Behavioral disorder. 13. Chronic bilateral lower extremity lymphedema. 14. Hyperlipidemia. 15. Hypothyroidism. 16. Clostridium difficile associated diarrhea and pseudomembranous colitis and (resolved). 17. Hypovitaminosis D. 18. Questionable anxiety disorder. 19. History of constipation. 1. Suprapubic cystostomy malfunction with questionable urinary incontinence from the suprapubic catheter site. 2. Hypertension. 3. Gait dysfunction. 4. Granulocytosis. 5. Chronic kidney disease, stage III. 6. Mild hyperbilirubinemia. 7. Morbid obesity. 8. History of cerebral infarct with residual right-sided weakness (almost resolved). 9. Clostridium difficile associated diarrhea with pseudomembranous colitis. 10. Behavioral disorder with agitation and combativeness. 11. Hypokalemia. 12. Anticoagulation requiring atrial fibrillation. 13. Hypothyroidism. 14. History of constipation. 15. Hypovitaminosis D. 16. Hyperlipidemia. 17. Questionable anxiety disorder. 1. Clostridium difficile associated diarrhea and pseudomembranous colitis (resolving). 2. Altered mental status with behavioral disorder with combative, aggressive behavior. 3. History of longstanding noncompliance. 4. Hypertension. 5. Deconditioning. 6. History of cerebral infarct with residual right-sided weakness (resolved). 7. Mild normocytic anemia. 8. Granulocytosis. 9. Anticoagulation-dependent atrial fibrillation. 10. Hypokalemia. 11. Status post acute kidney injury. 12. Mild hyperbilirubinemia. 13. Hypomagnesemia. 14. History of hypothyroidism. 15. History of hypovitaminosis D. 16. History of hyperlipidemia. 17. Proteinuria, hematuria, pyuria, bacteriuria. 18. Gait dysfunction. 19. History of bilateral lower extremity lymphedema and bilateral lower extremity venous stasis. 20. 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 21. Cholelithiasis. 22. Anterior abdominal wall muscular atrophy. 23. Incidental finding of cholelithiasis. 24. Morbid obesity. 25. Cardiomyopathy. 26. Pulmonary hypertension. 1. Persistent behavioral disorder with continuous and intermittent screaming and yelling and agitation. 2. Vascular type dementia and delirium. 3. Status post acute kidney injury (resolved). 4. Hypertension. 5. Hypokalemia. 6. Hypomagnesemia. 7. Chronic kidney disease stage III. 8. Anticoagulation requiring atrial fibrillation. 9. Mild normocytic anemia. 10. Granulocytosis. 11. History of hypothyroidism. 12. History of cardiomyopathy. 13. Longstanding history of poor compliance and noncompliance. 14. Gait dysfunction. 15. Proteinuria, microscopic hematuria, pyuria, bacteriuria. 16. Clostridium difficile associated diarrhea and pseudomembranous colitis. 17. Deconditioning. 18. Morbid obesity. 19. Voiding dysfunction and neurogenic bladder with status post suprapubic cystostomy. 20. Anticoagulation requiring atrial fibrillation. 21. Hyperlipidemia. 22. Hypothyroidism. 23. Hypovitaminosis D. 24. Agitation and combative behavior. 25. Vascular dementia with delirium. 1. Delirium versus possible vascular dementia. 2. Behavioral disorder, probably secondary to cerebral infarct. 3. Extremely poor compliance and noncompliance with history of longstanding noncompliance and poor compliance. 4. Gait dysfunction. 5. Morbid obesity. 6. History of cerebral infarct with right-sided residual hemiparesis and weakness. 7. Expressive aphasia, dysarthria, apraxia. 8. Extremely poor compliance with refusing to take medications, refusing to do physical therapy, refusing to be out of bed to chair. 9. Normocytic anemia. 10. Anticoagulation requiring atrial fibrillation. 11. Morbid obesity, status post gastric bypass surgery. 12. Neurogenic bladder and voiding dysfunction with status post suprapubic cystostomy placement. 13. Mild hypoalbuminemia. 14. Status post acute kidney injury. 15. Congestive heart failure. 16. Pulmonary hypertension. 17. Bilateral lower extremity lymphedema and venous stasis of the lower extremity. 18. Hyperlipidemia. 19. Hypertension. 20. Hypothyroidism. 21. Voiding dysfunction. 1. Severe behavioral disorder. 2. Agitated and combative behavior. 3. Delirium. 4. Vascular dementia. 5. Severe cerebral cortical atrophy and chronic microvascular ischemic disease of the brain on MRI of the brain. 6. Gait dysfunction. 7. Deconditioning. 8. Status post acute kidney injury. 9. Anticoagulation-dependent atrial fibrillation. 10. History of cerebral infarct with right-sided residual hemiparesis and weakness. 11. Pseudomembranous colitis with Clostridium difficile associated diarrhea (resolving). 12. Hypertension. 13. Morbid obesity, status post gastric bypass surgery. 14. Voiding dysfunction with neurogenic bladder, status post suprapubic cystostomy placement. 15. Gait dysfunction. 16. Deconditioning. 17. Uncooperative behavior. 18. History of longstanding poor compliance and noncompliance. 19. Atrial fibrillation. 20. Hyperlipidemia. 21. History of chronic constipation. 22. 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 23. History of bilateral lower extremity lymphedema and venous stasis. 1. Clostridium difficile associated diarrhea and colitis with Clostridium difficile toxin and antigen positive. 2. Delirium. 3. Vascular dementia. 4. Toxic metabolic encephalopathy. 5. Behavioral disorder. 6. Episodic agitation and noncompliance with medication treatment, etc. 7. Normocytic anemia. 8. Anticoagulation-dependent atrial fibrillation. 9. History of cerebrovascular infarct with right residual hemiparesis. 10. Expressive aphasia, dysarthria and apraxia. 11. Normocytic anemia. 12. Acute kidney injury with underlying chronic kidney disease stage 3 A and B. 13. Normocytic anemia. 14. Hypertension. 15. Atrial fibrillation. 16. Hypokalemia. 17. Hypomagnesemia. 18. Acute exacerbation of delirium and vascular dementia. 19. Right ventricular dysfunction with cardiorenal syndrome. 20. History of dilated cardiomyopathy and systolic congestive heart failure. 21. Gait dysfunction. 22. Bilateral lower extremity venous lymphedema. 23. Morbid obesity, history of gastric bypass surgery. 24. Neurogenic bladder with voiding dysfunction, status post suprapubic cystostomy. 25. History of hyperlipidemia. 26. History of chronic constipation. 27. History of degenerative joint disease of the spine, knees and hips. 28. Morbid obesity. 1. Episodic agitation and restlessness with possible behavioral disorder. 2. History of cerebrovascular accident with right-sided hemiparesis. 3. Questionable and possible Clostridium difficile associated diarrhea. 4. Normocytic anemia. 5. History of Clostridium difficile colitis. 6. Hypokalemia. 7. Acute kidney injury (resolving). 8. Hypomagnesemia. 9. History of hypothyroidism. 10. Episodic agitation and restlessness, probably secondary to aphasia, apraxia and dysarthria. 11. Cholelithiasis. 12. Right renal cyst. 13. History of gastric bypass. 14. Prostatomegaly. 15. Voiding dysfunction status post suprapubic cystostomy. 16. Old right frontal infarct. 17. Microvascular ischemic disease of the brain. 18. Cerebral cortical atrophy of the brain. 19. Decreased high-density lipoprotein. 1. Questionable altered mental status with possible behavioral disorder with combative and aggressive behavior. 2. Questionable Clostridium difficile associated diarrhea. 3. Mild normocytic anemia. 4. Granulocytosis. 5. Hypokalemia. 6. Chronic kidney disease stage 3. 7. Status post suprapubic cystostomy. 8. Proteinuria. 9. Microscopic hematuria, pyuria, bacteriuria. 10. History of left-sided cerebral cortical infarct with right hemiparesis. 11. Cardiomegaly. 12. Dilated cardiomyopathy. 13. Pulmonary hypertension. 14. Bilateral lower extremity venous stasis and lymphedema. 15. Deconditioning. 16. Gait dysfunction. 17. Morbid obesity. 18. Atrial fibrillation. 19. Expressive aphasia, dysarthria, apraxia. 20. Hypertension. 21. History of anxiety. 22. Hyperlipidemia. 23. Coumadin-dependent atrial fibrillation. 24. Hypovitaminosis D. 25. History of hypothyroidism. 26. History of constipation, history of hypokalemia, history of prostatic hypertrophy. 27. History of noncompliance. Plan at this time, the patient is consulted with Urology. The patient is on Infectious Disease consultation, Nephrology consultation. Nephrology recommendations were noted. The patient is to be continued on IV fluid. The patient's Demadex and Cozaar have been stopped since yesterday. The patient is started on IV fluid 0.9 normal saline at 80 mL an hour. The patient is on broad-spectrum IV antibiotics as per Infectious Disease recommendation. The patient is to be continued on Eliquis 2.5 twice a day. The patient is to be continued on all the medications as per the MAR of today. We will consider stopping the p.o. Vancocin as the patient has completed more than 14 days of treatment and the patient's diarrhea has resolved. At present, the patient is to be continued with the above therapeutic intervention with close Infectious Disease, Urology, Nephrology followup. Dictated and electronically signed, not read. Rashad Brown MD MTDD
[2018-07-18] MEDS: Thiamine 100 mg/ml Inj IM SCH (17:07)
--- NOTE | 2018-07-18 22:04 | CON ---
DATE: 07/18/2018 HISTORY OF PRESENT ILLNESS: The patient is a 63-year-old male who has numerous medical issues, please see medical note for full detail. 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 The patient has low frustration tolerance on the medical floor and it is difficult to have a productive conversation with him though does appear to calm down when he is able to get somebody's attention per staff notes. He does not appear to be very engaged during my questioning and does not appear to want to discuss any current psychiatric symptoms though I had attempted to request that he either shake or nod his head or even communicate by use of writing; however; this was attempted by the resident and he threw the pen at her. The patient's frustration is understandable, and level of frustration and combative behavior have been addressed by adding mood stabilizers such as Depakote and Seroquel as well as p.r.n. of Ativan and Geodon. It was noted that the patient may be also suffering from delirium which can take many weeks to resolve. The patient does continue to have some forgetfulness which is associated with delirium as well. Also might consider it is secondary to his medical condition as he will not remember information provided to him by his doctors or nursing staff. His insight and judgment are considered to be poor and impulse control is considered to be low at this time. Vital signs and labs were reviewed by the provider. MEDICATIONS: Relevant psychiatric medications include Depakote 500 mg p.o. b.i.d., last Depakote level was 30 on 07/17/2018; Ativan 0.5 mg p.o. every 12 hours p.r.n., to be given either p.o. or IM, with Geodon injections 10 mg IM every 12 hours p.r.n. for agitation; Seroquel 12.5 mg p.o. b.i.d. and 25 mg at bedtime scheduled. IMPRESSION: Behavioral disturbance related to aphasia. Rule out of resolving delirium. RECOMMENDATIONS: We will increase Seroquel to help with impulse control to a dose of 50 mg at bedtime, 12.5 mg a.m. and 12.5 mg p.m. We will continue with p.r.n. of Ativan and Geodon as well as Depakote 500 mg p.o. b.i.d. Please note that benzodiazepines can be very beneficial for anxiety and agitation; however, providing too many benzodiazepines in case of delirium or confusion can actually worsen the patient at this point with this medication and I cautioned against liberal use of this type of medication and recommend Geodon with low-dose Ativan instead. Psychiatry will continue to follow up the patient every other day and make necessary adjustments to his medications. Estela Aguilar MD
[2018-07-19 08:01] LABS: BASO # 0.02 K/mm3 (0.0-2.0); BASO % 0.3 % (0.0-3.0); EOS # 0.2 (0.0-0.7); EOS % 3.5 % (1.5-5.0); GRAN # 3.43 (1.4-6.5); GRAN % 59.7 % (50.0-68.0); HEMOGLOBIN 12.5 g/dL (14.0-18.0); LYMPH # 1.5 (1.2-3.4); LYMPH % 26.8 % (22.0-35.0); MEAN CELL VOLUME 94.9 fl (80.0-105.0); MEAN CORPUSCULAR HEMOGLOBIN 30.6 pg (25.0-35.0); MEAN CORPUSCULAR HGB CONC 32.3 g/dl (31.0-37.0); MEAN PLATELET VOLUME 9.9 fl (7.0-11.0); MONO # 0.6 (0.1-0.6); MONO % 9.7 % (1.0-6.0); RBC 4.08 10^6/uL (3.5-6.1); RED CELL DISTRIBUTION WIDTH 14.5 % (11.5-14.5); WHITE BLOOD COUNT 5.8 10^3/uL (4.5-11.0)
[2018-07-19 08:16] LABS: ALBUMIN 3.1 g/dL (3.0-4.8); BILIRUBIN,DIRECT 0.2 mg/dL (0.0-0.4); CALCIUM 8.4 mg/dL (8.4-10.5)
[2018-07-19] MEDS: Fluconazole IV 200mg/100 ml NS 100 ML IVPB SCH (10:11)
[2018-07-19] MEDS: Divalproex 125 mg EC Sprinkle Cap PO SCH ×3 (10:12→22:23)
[2018-07-19] MEDS: Cholecalciferol 1,000 INTLU TAB PO SCH (10:14)
[2018-07-19] MEDS: Levothyroxine 25 MCG TAB PO SCH (10:15)
[2018-07-19] MEDS: Ammonium Lactate 12% Lotion (225 g) EXT SCH ×2 (10:17→18:42)
[2018-07-19] MEDS: Nystatin 100,000 Units/gm Topical Pow(15 gm) TOP SCH ×2 (10:17→18:42)
[2018-07-19] MEDS: Thiamine 100 mg/ml Inj IM SCH (10:21)
--- NOTE | 2018-07-19 10:27 | PN ---
DATE: 07/19/2018 SUBJECTIVE: The patient is confused and agitated. PHYSICAL EXAMINATION: VITAL SIGNS: Temperature is 98.3, pulse of 65, blood pressure is 146/88, respirations 20. LABORATORY DATA: White count of 5.8, hemoglobin 12.5, creatinine is 1.9. Bladder ultrasound was nondiagnostic examination. There is an indwelling suprapubic catheter. The bladder is empty. Renal ultrasound done shows no significant acute findings. There was an upper pole cyst of 2.[address] of the abdomen and pelvis done shows simple cyst. No evidence of hydronephrosis. ASSESSMENT: 1. Acute kidney injury secondary to suprapubic catheter dysfunction. 2. Urinary tract infection secondary to Klebsiella and Pseudomonas. 3. Hypertension. 4. Atrial fibrillation, on Eliquis. PLAN: The patient's creatinine is improving. The patient does have a better urine output according to the nurse that I spoke with. The creatinine has decreased to 1.9, it was 2.3 yesterday and 2.8 the day before. The patient is currently on aspirin daily, is on antibiotics with ceftazidime for his urinary tract infection. The patient is on Eliquis for anticoagulation. It is renally dosed. The patient's heparin is on hold. The patient is on Lipitor for dyslipidemia. The patient is also on IV fluids. I will discontinue the patient's IV fluids at this point. The patient is on a regular diet. This is coverage for Dr. Webb. Jed Dwyer MD
[2018-07-19] MEDS ORDERED: Vancomycin 1gm in NS 250ml 1 GM/250 ML BAG IVPB STA (14:26)
--- NOTE | 2018-07-19 14:27 | CP.PCM.PN ---
Subjective - Date & Time of Evaluation Date of Evaluation: 07/20/18 Time of Evaluation: 13:10 - Subjective Subjective: Patient still gets occasionally agitated, no fevers, not in distress. Objective - Vital Signs/Intake and Output Vital Signs (last 24 hours): Temp Pulse Resp BP Pulse Ox 98.2 F 60 20 168/92 H 96 07/18/18 07:00 07/18/18 07:00 07/18/18 07:00 07/18/18 07:00 07/18/18 07:00 Intake and Output: 07/18/18 07/18/18 06:59 18:59 Intake Total 900 Output Total 1450 Balance -550 - Medications Medications: Current Medications Acetaminophen (Tylenol 325mg Tab) 650 mg PO Q6 PRN PRN Reason: TEMP>=99.5F Last Admin: 07/17/18 21:48 Dose: 650 mg Acetaminophen (Tylenol 650 Mg Supp) 650 mg RC Q6H PRN PRN Reason: TEMP>=99.5F Apixaban (Eliquis) 2.5 mg PO BID [facility]; Protocol Last Admin: 07/18/18 10:25 Dose: Not Given Aspirin (Aspirin Chewable) 81 mg PO DAILY [facility] Last Admin: 07/17/18 10:02 Dose: 81 mg Atorvastatin Calcium (Lipitor) 40 mg PO HS [facility] Last Admin: 07/17/18 21:50 Dose: 40 mg Cholecalciferol (Vitamin D) 2,000 intlu PO DAILY [facility] Last Admin: 07/18/18 10:26 Dose: Not Given Diphenhydramine HCl (Benadryl) 25 mg PO Q8H PRN PRN Reason: Itching / Pruritus Last Admin: 07/18/18 08:30 Dose: 25 mg Divalproex Sodium (Depakote Sprinkles) 500 mg PO BID [facility]; Protocol Last Admin: 07/18/18 10:24 Dose: Not Given Famotidine (Pepcid) 20 mg PO BID [facility] Last Admin: 07/18/18 10:25 Dose: Not Given Heparin Sodium (Porcine) (Heparin) 5,000 units SC Q8 [facility]; Protocol Last Admin: 07/09/18 20:10 Dose: Not Given Fluconazole (Diflucan Iv 200 Mg/100 Ml Ns) 100 mls @ 100 mls/hr IVPB DAILY [facility]; Protocol Last Admin: 07/17/18 12:00 Dose: 100 mls/hr Ceftazidime/Avibactam 1.25 gm/ (Sodium Chloride) 100 mls @ 50 mls/hr IVPB Q8H [facility]; Protocol Stop: 07/23/18 17:16 Last Admin: 07/18/18 10:20 Dose: 50 mls/hr Sodium Chloride (Sodium Chloride 0.9%) 1,000 mls @ 80 mls/hr IV .[id number] SACHIN Last Admin: 07/17/18 17:01 Dose: 80 mls/hr Vancomycin HCl 2 gm/ Sodium (Chloride) 500 mls @ 170 mls/hr IVPB ONCE ONE; Protocol Stop: 07/18/18 15:59 Lactic Acid (Lac-Hydrin 12% Lotion (225 G)) 0 gm EXT BID [facility] Last Admin: 07/17/18 18:26 Dose: 1 applic Levothyroxine Sodium (Synthroid) 25 mcg PO ACB [facility] Last Admin: 07/18/18 08:29 Dose: 25 mcg Lorazepam (Ativan) 0.5 mg PO Q12 PRN; Protocol PRN Reason: Agitation Last Admin: 07/18/18 08:29 Dose: 0.5 mg Metoprolol Tartrate (Lopressor) 25 mg PO BRKDIN [facility] Last Admin: 07/18/18 08:52 Dose: 25 mg Nystatin (Nystop Topical Powder) 0 gm TOP BID [facility] Last Admin: 07/17/18 18:27 Dose: 1 applic Quetiapine Fumarate (Seroquel) 12.5 mg PO BID [facility]; Protocol Last Admin: 07/18/18 10:26 Dose: Not Given Quetiapine Fumarate (Seroquel) 25 mg PO HS [facility]; Protocol Last Admin: 07/17/18 21:48 Dose: 25 mg Thiamine HCl (Vitamin B1 Inj) 100 mg IM DAILY [facility] Last Admin: 07/17/18 10:00 Dose: 100 mg Ziprasidone (Geodon Inj) 10 mg IM Q12 PRN; Protocol PRN Reason: Agitation Last Admin: 07/18/18 09:01 Dose: 10 mg - Labs Labs: 07/18/18 10:15 07/18/18 10:15 PT 16.5 SECONDS (9.4-12.5) H 07/08/18 14:45 INR 1.44 07/08/18 14:45 APTT 32.4 Seconds (25.1-36.5) 07/08/18 14:45 - Constitutional Appears: Chronically Ill - Head Exam Head Exam: NORMAL INSPECTION - Neck Exam Neck Exam: absent: Meningismus - Respiratory Exam Respiratory Exam: Decreased Breath Sounds - Cardiovascular Exam Cardiovascular Exam: +S1, +S2 - GI/Abdominal Exam GI & Abdominal Exam: Soft. absent: Tenderness Assessment and Plan - Assessment and Plan (Free Text) Plan: Assessment consider complicated UTI with multidrug-resistant Klebsiella and yeast in this patient with suprapubic [place] catheter use - just changed on this admission gram positive cocci in clusters in 2 of 4 blood cx bottles - R/O contamination history of right leg infected venous stasis ulcers, with MRSA and Pseudomonas acute CVA with right sided weakness and residual aphasia S/P tPA infusion history of left lower extremity skin and skin structure infection with Klebsiella and MRSA in a patient with chronic venous stasis ulcers with no evidence of abscess or osteomyelitis on MRI, clinically improving Probable CHF exacerbation chronic systolic CHF with EF 25% chronic atrial fibrillation chronic lymphedema with chronic venous stasis COPD HTN history of gastric bypass surgery history of left knee surgery Plan will continue Avycaz day 4 and will continue Diflucan - repeat urine cx showing Pseudomonas and Klebsiella and we are awaiting identification and sensitivities - will need 7-10 days of antibiotics repeat blood cx are negative and will give intermittent IV Vancomycin (Day 3) for 5-7 days will continue to monitor clinically
--- NOTE | 2018-07-19 17:38 | PN ---
DATE: 07/19/2018 SUBJECTIVE: The patient is seen lying in the bed in Room 576, Bed 1. The patient is sleepy, but arousable, watching TV. The patient is sitting up with the head of the bed up at 45 degrees or more. The patient's overnight nurse's notes were reviewed, and according to the nurse, the patient has been less agitated, less yelling and calmer than yesterday. The patient is calmer with expressive aphasia, apraxia and dysarthria. PHYSICAL EXAMINATION: VITAL SIGNS: T-max 98, pulse 64, blood pressure 132/89, respirations 20, O2 sat 100%. GENERAL: The patient is seen sitting up in the bed. HEENT: Head normocephalic, atraumatic. [place] conjunctivae. Anicteric sclerae. No oropharyngeal lesion. NECK: No neck rigidity. CHEST: Kyphosis. LUNGS: No audible rales, crackles or wheezing. CARDIOVASCULAR: S1, S2, irregular rhythm. Positive systolic murmur left sternal border, right second intercostal space. ABDOMEN: Obese. Positive bowel sounds. GENITALIA: Male. Positive suprapubic cystostomy noted. EXTREMITIES: Chronic lymphedematous changes of the lower extremities with chronic skin changes. MUSCULOSKELETAL: Elevated body mass index. NEUROLOGIC: The patient has dysarthria, expressive aphasia, apraxia. Gait examination is not tested. Positive right-sided weakness, which is chronic. DIAGNOSTICS: CBC and CMP from today were reviewed. Hemoglobin/hematocrit and WBCs within normal limit. Hemoglobin and hematocrit 12.5 and 37. Platelets are within normal limits. Chemistry is reviewed. CMP and LFTs are reviewed. The creatinine is down to 1.9 from 2.8 with IV fluid hydration. The patient also has a right upper extremity PICC line. IMPRESSION: 1. Gram-positive cocci in clusters, bacteremia versus sepsis versus contamination. 2. Multidrug-resistant Klebsiella pneumoniae urinary tract infection and Pseudomonas aeruginosa urinary tract infection. 3. Funguria with yeast urinary tract infection. 4. Recently treated Clostridium difficile associated diarrhea and pseudomembranous colitis. 5. Suprapubic cystostomy malfunction, status post revision. 6. Acute kidney injury (resolving). 7. Gait dysfunction. 8. Right hemiparesis. 9. Gait dysfunction. 10. Anticoagulation requiring atrial fibrillation. 11. Behavioral disorder, probably secondary to cerebral infarct and aphasia. 12. Right hemiparesis. 13. Deconditioning. 14. Gait dysfunction. 15. Morbid obesity. 16. History of gastric lap pending. 17. Suprapubic cystostomy with malfunction and revision. 18. Lymphedema of the lower extremities with chronic lower extremity venous stasis. 19. Hypovitaminosis D. 20. Atrial fibrillation with slow ventricular response. 21. Hyperlipidemia. 22. Hypothyroidism. 23. Normocytic anemia. 24. Degenerative joint disease of the spine, hips and knees. 25. History of constipation. 1. Acute renal failure and acute kidney injury, etiology undetermined. 2. Hypertension. 3. Anemia. 4. Granulocytosis. 5. Gram-positive cocci in clusters bacteremia and sepsis. 6. Multidrug resistant Klebsiella pneumoniae urinary tract infection and Pseudomonas aeruginosa urinary tract infection. 7. Funguria. 8. Yeast urinary tract infection. 9. Proteinuria, microscopic hematuria, pyuria, bacteriuria. 10. Acute kidney injury (slow resolving). 11. Severe gait dysfunction with right-sided hemiparesis. 12. History of cerebral infarct with right hemiparesis. 14. Agitated, restless, combative behavior and behavioral disorder. 15. Normocytic anemia. 16. Status post lab lap band. 17. Cholelithiasis. 18. Right renal cyst. 19. Voiding dysfunction with suprapubic cystostomy placement and revision secondary to suprapubic cystostomy malfunction. 20. Deconditioning. 22. Gait dysfunction. 23. Anticoagulation requiring atrial fibrillation. 24. Hypertension. 25. Atrial fibrillation with slow ventricular response. 26. Pseudomembranous colitis with Clostridium difficile associated diarrhea. 27. Bilateral lower extremity lymphedema with history of bilateral lower extremity venous stasis. 1. Multidrug-resistant Klebsiella pneumoniae urinary tract infection. 2. Yeast urinary tract infection and funguria. 3. Atrial fibrillation with slow ventricular response. 4. Hypertension. 5. Vascular dementia with severe behavioral disorders with agitation, combativeness and confusion. 6. History of cerebral infarct with right-sided paresis with apraxia, dysarthria and expressive aphasia. 7. Severe gait dysfunction and deconditioning. 8. Morbid obesity. 9. Voiding dysfunction. 10. Suprapubic cystostomy malfunction. 11. Status post suprapubic cystostomy revision. 12. History of lymphedema of the lower extremity with a history of venous stasis of the lower extremity. 13. Longstanding history of poor compliance and noncompliance. 14. Clostridium difficile-associated diarrhea and pseudomembranous colitis (resolved). 15. Hypertension. 16. Atrial fibrillation requiring anticoagulation. 17. Hypothyroidism. 18. Hyperlipidemia. 19. History of constipation. 20. Degenerative joint disease of the spine, knees and hips. 21. Possible delirium. 22. Combative, agitated and assaultive behavior; etiology unclear. 23. Poor compliance. 24. Recurrent urinary tract infection. 25. Voiding dysfunction. 26. Possible neurogenic bladder. 1. Vascular dementia with extreme and severe behavioral disorders. 2. Multidrug resistant Klebsiella pneumoniae urinary tract infection with funguria and yeast urinary tract infection. 3. Toxic metabolic encephalopathy. 4. Severe behavioral disorder with episodes of screaming, combative behavior. 5. High risk for fall. 6. Gait dysfunction. 7. Cerebral infarct with right hemiparesis. 8. Anticoagulation dependent atrial fibrillation. 9. Voiding dysfunction with suprapubic cystostomy placement. 10. History of cerebrovascular accident with right-sided hemiparesis with expressive aphasia, dysarthria, and apraxia. 11. Hypertension. 12. Atrial fibrillation with variable ventricular response. 13. Multidrug-resistance Klebsiella pneumoniae urinary tract infection. 14. Possible delirium. 15. Bilateral lower extremity lymphedema and history of venous stasis of the lower extremity. 16. Vascular dementia with severe behavioral disturbances and superimposed underlying toxic metabolic encephalopathy. 17. Voiding dysfunction. 18. Combative behavior. 1. Severe behavioral disorders with continued episodes of agitation, combativeness and yelling and screaming and severe behavior disorder. 2. Gram-negative ankita and yeast urinary tract infection and funguria. 3. Voiding dysfunction. 4. Suprapubic cystostomy malfunction and dysfunction, status post revision of the suprapubic cystostomy. 5. Neurogenic bladder. 6. History of cerebral infarct with right-sided paresis. 7. Expressive aphasia, dysarthria and apraxia. 8. Anticoagulation-dependent atrial fibrillation. 9. Congestive heart failure and dilated cardiomyopathy. 10. Pulmonary hypertension. 11. History of gastric bypass surgery. 12. Suprapubic cystostomy. 13. Clostridium difficile-associated diarrhea and pseudomembranous colitis (resolved). 14. Lower extremity lymphedema and venous stasis ulceration. 15. Morbid obesity. 16. Gait dysfunction. 17. Deconditioning. 18. Right hemiparesis. 20. History of constipation. 21. Degenerative joint disease of the spine, hips, knees. 22. History of longstanding noncompliance and poor compliance. 1. Suprapubic cystostomy tube malfunction. 2. Status post revision and replacement of the suprapubic cystostomy. 3. Voiding dysfunction. 4. Urinary incontinence and urinary retention. 5. Behavioral disorders with episodes of agitation, restlessness, combative behavior. 6. Cerebral infarct with right-sided paresis. 7. Dysarthria, expressive aphasia, and apraxia. 8. Poor compliance and noncompliance. 9. Hypertension. 10. Anticoagulation-dependent atrial fibrillation. 11. Morbid obesity. 12. History of bilateral lower extremity lymphedema and venous stasis. 13. Gait dysfunction. 14. Deconditioning. 15. Morbid obesity. 16. Hyperlipidemia. 17. Hypothyroidism. 18. History of gastric bypass surgery. 19. Degenerative joint disease of the spine, knees, and hips. 20. History of constipation. 21. Clostridium difficile-associated diarrhea and pseudomembranous colitis (resolving). 1. Behavioral disorder with episodes of agitation, confusion, combativeness. 2. Suprapubic cystostomy malfunction and dysfunction. 3. Status post suprapubic cystostomy revision with placement of the new 16-[place] two-way suprapubic cystostomy. 4. Urinary retention and incontinence. 5. Voiding dysfunction. 6. Hypertension. 7. Atrial fibrillation. 8. Morbid obesity with elevated body mass index of 47. 9. History of cerebral infarct with right-sided paresis. 10. Dysarthria, apraxia, expressive aphasia. 11. Chronic kidney disease stage 3. 12. Hyperbilirubinemia. 13. Morbid obesity. 14. History of bilateral lower extremity lymphedema and venous stasis. 15. Gait dysfunction. 16. Deconditioning. 17. Behavioral disorder. 18. Anticoagulation-dependent atrial fibrillation. 19. Hyperlipidemia. 20. History of hypothyroidism, history of hypovitaminosis D, history of anxiety disorder. 21. History of clostridium difficile associated diarrhea and pseudomembranous colitis (resolving). 1. Status post revision of the suprapubic cystostomy with placement of 16-[place] two-way suprapubic cystostomy. 2. Voiding dysfunction. 3. Neurogenic bladder. 4. Behavioral disorder with episodes of screaming, agitation and yelling. 5. Episodic confusion. 6. History of cerebral infarct with right-sided residual hemiparesis. 7. Morbid obesity. 8. History of anticoagulation requiring atrial fibrillation. 9. Dilated cardiomyopathy. 10. Pulmonary hypertension. 11. History of gastric bypass surgery. 12. Status post suprapubic cystostomy placement. 13. Urinary incontinence, urinary retention and voiding dysfunction. 14. Bilateral lower extremity lymphedema with history of MRSA cellulitis of the bilateral lower extremities venous stasis ulceration. 15. Morbid obesity. 16. Hypertension. 17. Elevated body mass index. 18. Gait dysfunction. 19. Longstanding history of noncompliance and poor compliance. 20. History of hypertension, hyperlipidemia, hypothyroidism. 1. Suprapubic cystostomy malfunction. 2. Status post revision and placement of 16-[place] two-way suprapubic cystostomy tube placement. 3. Voiding dysfunction. 4. Neurogenic bladder. 5. Urinary incontinence. 6. Behavioral disorder with agitation and screaming behavior. 7. History of cerebral infarct with right-sided residual weakness and hemiparesis. 8. Anticoagulation-dependent atrial fibrillation. 9. Morbid obesity. 10. Hypertension. 11. . 12. Morbid obesity, status post gastric bypass surgery. 13. Cardiomyopathy. 14. Hypothyroidism. 15. Expressive aphasia, dysarthria and apraxia. 16. Gait dysfunction. 17. Deconditioning. 18. Bilateral lower extremity lymphedema and venous stasis. 19. 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 20. History of constipation. 21. Clostridium deficit associated diarrhea and pseudomembranous colitis (resolving versus resolved). 23. Hyperlipidemia. 24. Hypothyroidism. 1. Suprapubic cystostomy malfunction and dysfunction. 2. Status post suprapubic cystostomy catheter change with 16-[place] two-way suprapubic cystostomy placement. 3. Gait dysfunction. 4. Deconditioning. 5. Morbid obesity. 6. History of cerebral infarct with residual right-sided weakness. 7. Expressive aphasia, apraxia, and dysarthria. 8. Longstanding chronic noncompliance and poor compliance. 9. Anticoagulation-dependent atrial fibrillation. 10. Cardiomyopathy. 11. Pulmonary hypertension. 12. Hypothyroidism. 13. Bilateral lower extremity lymphedema with history of venous stasis ulceration of the lower extremity. 14. Degenerative joint disease of the spine, hips, and knees. 15. Voiding dysfunction. 16. Possible neurogenic bladder. 17. History of constipation. 18. Clostridium difficile associated diarrhea and pseudomembranous colitis, presently on p.o. Vancocin. 19. History of dilated cardiomyopathy and systolic congestive heart failure. 20. Hyperlipidemia. 21. Hypertension. 1. Suprapubic cystostomy malfunction. 2. Voiding dysfunction with urinary retention and urinary incontinence. 3. Hypertension. 4. Granulocytosis. 5. Anticoagulation dependent atrial fibrillation. 6. Chronic kidney disease stage 3. 7. Morbid obesity. 8. Deconditioning. 9. Gait dysfunction. 10. 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 11. Longstanding history of poor and noncompliance. 12. Behavioral disorder. 13. Chronic bilateral lower extremity lymphedema. 14. Hyperlipidemia. 15. Hypothyroidism. 16. Clostridium difficile associated diarrhea and pseudomembranous colitis and (resolved). 17. Hypovitaminosis D. 18. Questionable anxiety disorder. 19. History of constipation. 1. Suprapubic cystostomy malfunction with questionable urinary incontinence from the suprapubic catheter site. 2. Hypertension. 3. Gait dysfunction. 4. Granulocytosis. 5. Chronic kidney disease, stage III. 6. Mild hyperbilirubinemia. 7. Morbid obesity. 8. History of cerebral infarct with residual right-sided weakness (almost resolved). 9. Clostridium difficile associated diarrhea with pseudomembranous colitis. 10. Behavioral disorder with agitation and combativeness. 11. Hypokalemia. 12. Anticoagulation requiring atrial fibrillation. 13. Hypothyroidism. 14. History of constipation. 15. Hypovitaminosis D. 16. Hyperlipidemia. 17. Questionable anxiety disorder. 1. Clostridium difficile associated diarrhea and pseudomembranous colitis (resolving). 2. Altered mental status with behavioral disorder with combative, aggressive behavior. 3. History of longstanding noncompliance. 4. Hypertension. 5. Deconditioning. 6. History of cerebral infarct with residual right-sided weakness (resolved). 7. Mild normocytic anemia. 8. Granulocytosis. 9. Anticoagulation-dependent atrial fibrillation. 10. Hypokalemia. 11. Status post acute kidney injury. 12. Mild hyperbilirubinemia. 13. Hypomagnesemia. 14. History of hypothyroidism. 15. History of hypovitaminosis D. 16. History of hyperlipidemia. 17. Proteinuria, hematuria, pyuria, bacteriuria. 18. Gait dysfunction. 19. History of bilateral lower extremity lymphedema and bilateral lower extremity venous stasis. 20. 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 21. Cholelithiasis. 22. Anterior abdominal wall muscular atrophy. 23. Incidental finding of cholelithiasis. 24. Morbid obesity. 25. Cardiomyopathy. 26. Pulmonary hypertension. 1. Persistent behavioral disorder with continuous and intermittent screaming and yelling and agitation. 2. Vascular type dementia and delirium. 3. Status post acute kidney injury (resolved). 4. Hypertension. 5. Hypokalemia. 6. Hypomagnesemia. 7. Chronic kidney disease stage III. 8. Anticoagulation requiring atrial fibrillation. 9. Mild normocytic anemia. 10. Granulocytosis. 11. History of hypothyroidism. 12. History of cardiomyopathy. 13. Longstanding history of poor compliance and noncompliance. 14. Gait dysfunction. 15. Proteinuria, microscopic hematuria, pyuria, bacteriuria. 16. Clostridium difficile associated diarrhea and pseudomembranous colitis. 17. Deconditioning. 18. Morbid obesity. 19. Voiding dysfunction and neurogenic bladder with status post suprapubic cystostomy. 20. Anticoagulation requiring atrial fibrillation. 21. Hyperlipidemia. 22. Hypothyroidism. 23. Hypovitaminosis D. 24. Agitation and combative behavior. 25. Vascular dementia with delirium. 1. Delirium versus possible vascular dementia. 2. Behavioral disorder, probably secondary to cerebral infarct. 3. Extremely poor compliance and noncompliance with history of longstanding noncompliance and poor compliance. 4. Gait dysfunction. 5. Morbid obesity. 6. History of cerebral infarct with right-sided residual hemiparesis and weakness. 7. Expressive aphasia, dysarthria, apraxia. 8. Extremely poor compliance with refusing to take medications, refusing to do physical therapy, refusing to be out of bed to chair. 9. Normocytic anemia. 10. Anticoagulation requiring atrial fibrillation. 11. Morbid obesity, status post gastric bypass surgery. 12. Neurogenic bladder and voiding dysfunction with status post suprapubic cystostomy placement. 13. Mild hypoalbuminemia. 14. Status post acute kidney injury. 15. Congestive heart failure. 16. Pulmonary hypertension. 17. Bilateral lower extremity lymphedema and venous stasis of the lower extremity. 18. Hyperlipidemia. 19. Hypertension. 20. Hypothyroidism. 21. Voiding dysfunction. 1. Severe behavioral disorder. 2. Agitated and combative behavior. 3. Delirium. 4. Vascular dementia. 5. Severe cerebral cortical atrophy and chronic microvascular ischemic disease of the brain on MRI of the brain. 6. Gait dysfunction. 7. Deconditioning. 8. Status post acute kidney injury. 9. Anticoagulation-dependent atrial fibrillation. 10. History of cerebral infarct with right-sided residual hemiparesis and weakness. 11. Pseudomembranous colitis with Clostridium difficile associated diarrhea (resolving). 12. Hypertension. 13. Morbid obesity, status post gastric bypass surgery. 14. Voiding dysfunction with neurogenic bladder, status post suprapubic cystostomy placement. 15. Gait dysfunction. 16. Deconditioning. 17. Uncooperative behavior. 18. History of longstanding poor compliance and noncompliance. 19. Atrial fibrillation. 20. Hyperlipidemia. 21. History of chronic constipation. 22. 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 23. History of bilateral lower extremity lymphedema and venous stasis. 1. Clostridium difficile associated diarrhea and colitis with Clostridium difficile toxin and antigen positive. 2. Delirium. 3. Vascular dementia. 4. Toxic metabolic encephalopathy. 5. Behavioral disorder. 6. Episodic agitation and noncompliance with medication treatment, etc. 7. Normocytic anemia. 8. Anticoagulation-dependent atrial fibrillation. 9. History of cerebrovascular infarct with right residual hemiparesis. 10. Expressive aphasia, dysarthria and apraxia. 11. Normocytic anemia. 12. Acute kidney injury with underlying chronic kidney disease stage 3 A and B. 13. Normocytic anemia. 14. Hypertension. 15. Atrial fibrillation. 16. Hypokalemia. 17. Hypomagnesemia. 18. Acute exacerbation of delirium and vascular dementia. 19. Right ventricular dysfunction with cardiorenal syndrome. 20. History of dilated cardiomyopathy and systolic congestive heart failure. 21. Gait dysfunction. 22. Bilateral lower extremity venous lymphedema. 23. Morbid obesity, history of gastric bypass surgery. 24. Neurogenic bladder with voiding dysfunction, status post suprapubic cystostomy. 25. History of hyperlipidemia. 26. History of chronic constipation. 27. History of degenerative joint disease of the spine, knees and hips. 28. Morbid obesity. 1. Episodic agitation and restlessness with possible behavioral disorder. 2. History of cerebrovascular accident with right-sided hemiparesis. 3. Questionable and possible Clostridium difficile associated diarrhea. 4. Normocytic anemia. 5. History of Clostridium difficile colitis. 6. Hypokalemia. 7. Acute kidney injury (resolving). 8. Hypomagnesemia. 9. History of hypothyroidism. 10. Episodic agitation and restlessness, probably secondary to aphasia, apraxia and dysarthria. 11. Cholelithiasis. 12. Right renal cyst. 13. History of gastric bypass. 14. Prostatomegaly. 15. Voiding dysfunction status post suprapubic cystostomy. 16. Old right frontal infarct. 17. Microvascular ischemic disease of the brain. 18. Cerebral cortical atrophy of the brain. 19. Decreased high-density lipoprotein. 1. Questionable altered mental status with possible behavioral disorder with combative and aggressive behavior. 2. Questionable Clostridium difficile associated diarrhea. 3. Mild normocytic anemia. 4. Granulocytosis. 5. Hypokalemia. 6. Chronic kidney disease stage 3. 7. Status post suprapubic cystostomy. 8. Proteinuria. 9. Microscopic hematuria, pyuria, bacteriuria. 10. History of left-sided cerebral cortical infarct with right hemiparesis. 11. Cardiomegaly. 12. Dilated cardiomyopathy. 13. Pulmonary hypertension. 14. Bilateral lower extremity venous stasis and lymphedema. 15. Deconditioning. 16. Gait dysfunction. 17. Morbid obesity. 18. Atrial fibrillation. 19. Expressive aphasia, dysarthria, apraxia. 20. Hypertension. 21. History of anxiety. 22. Hyperlipidemia. 23. Coumadin-dependent atrial fibrillation. 24. Hypovitaminosis D. 25. History of hypothyroidism. 26. History of constipation, history of hypokalemia, history of prostatic hypertrophy. 27. History of noncompliance. PLAN: At this time, the patient is to be continued on IV antibiotics as per the Infectious Disease. IV fluid as ordered. The patient's angiotensin receptor chong and diuretics have been discontinued. The patient is on GI/DVT prophylaxis. The patient is on Eliquis 2.5 twice a day for atrial fibrillation. The patient was given a dose of vancomycin by Infectious Disease intravenously yesterday. The patient is to be continued on vitamin D supplementation. GI/DVT prophylaxis ordered. At present, we are awaiting for the recommended duration of the IV antibiotic treatment, which is probably 7-10 days, but we will wait for the repeat blood and urine culture results and we will determine the duration of the therapy on the basis of the above. Overall prognosis guarded to poor. Family including the aware. Dictated and electronically signed, not read. Rashad Brown MD [facility] # [id number] [place]
[2018-07-20 09:20] LABS: BASO # 0.02 K/mm3 (0.0-2.0); BASO % 0.4 % (0.0-3.0); EOS # 0.2 (0.0-0.7); EOS % 4.5 % (1.5-5.0); GRAN # 2.44 (1.4-6.5); GRAN % 54.4 % (50.0-68.0); HEMOGLOBIN 11.8 g/dL (14.0-18.0); LYMPH # 1.5 (1.2-3.4); LYMPH % 32.7 % (22.0-35.0); MEAN CELL VOLUME 94.8 fl (80.0-105.0); MEAN CORPUSCULAR HGB CONC 32.7 g/dl (31.0-37.0); MEAN PLATELET VOLUME 10.1 fl (7.0-11.0); MONO # 0.4 (0.1-0.6); RBC 3.81 10^6/uL (3.5-6.1); RED CELL DISTRIBUTION WIDTH 14.4 % (11.5-14.5); WHITE BLOOD COUNT 4.5 10^3/uL (4.5-11.0)
[2018-07-20 09:21] LABS: ALBUMIN 2.9 g/dL (3.0-4.8); BILIRUBIN,DIRECT 0.1 mg/dL (0.0-0.4); CALCIUM 8.3 mg/dL (8.4-10.5)
[2018-07-20] MEDS: Divalproex 125 mg EC Sprinkle Cap PO SCH ×2 (09:30→17:39)
[2018-07-20] MEDS: Cholecalciferol 1,000 INTLU TAB PO SCH (09:31)
[2018-07-20] MEDS: Nystatin 100,000 Units/gm Topical Pow(15 gm) TOP SCH ×2 (09:35→17:42)
[2018-07-20] MEDS: Levothyroxine 25 MCG TAB PO SCH (09:35)
[2018-07-20] MEDS: Fluconazole IV 200mg/100 ml NS 100 ML IVPB SCH (09:47)
[2018-07-20] MEDS: Ammonium Lactate 12% Lotion (225 g) EXT SCH ×2 (10:00→17:41)
[2018-07-20] MEDS: Thiamine 100 mg/ml Inj IM SCH (11:39)
--- NOTE | 2018-07-20 13:53 | CP.PCM.PN ---
Subjective - Date & Time of Evaluation Date of Evaluation: 07/20/18 Time of Evaluation: 12:30 - Subjective Subjective: No fevers, not in distress, not as agitated today. Objective - Vital Signs/Intake and Output Vital Signs (last 24 hours): Temp Pulse Resp BP Pulse Ox 98.3 F 65 20 146/88 97 07/19/18 06:00 07/19/18 10:16 07/19/18 06:00 07/19/18 10:16 07/19/18 06:00 Intake and Output: 07/19/18 07/19/18 06:59 18:59 Output Total 200 Balance -200 - Medications Medications: Current Medications Acetaminophen (Tylenol 325mg Tab) 650 mg PO Q6 PRN PRN Reason: TEMP>=99.5F Last Admin: 07/18/18 20:52 Dose: 650 mg Acetaminophen (Tylenol 650 Mg Supp) 650 mg RC Q6H PRN PRN Reason: TEMP>=99.5F Apixaban (Eliquis) 2.5 mg PO BID [facility]; Protocol Last Admin: 07/19/18 10:14 Dose: 2.5 mg Aspirin (Aspirin Chewable) 81 mg PO DAILY [facility] Last Admin: 07/19/18 10:15 Dose: 81 mg Atorvastatin Calcium (Lipitor) 40 mg PO HS [facility] Last Admin: 07/18/18 21:30 Dose: 40 mg Cholecalciferol (Vitamin D) 2,000 intlu PO DAILY [facility] Last Admin: 07/19/18 10:14 Dose: 2,000 intlu Diphenhydramine HCl (Benadryl) 25 mg PO Q8H PRN PRN Reason: Itching / Pruritus Last Admin: 07/19/18 10:11 Dose: 25 mg Divalproex Sodium (Depakote Sprinkles) 500 mg PO BID [facility]; Protocol Last Admin: 07/19/18 10:12 Dose: 500 mg Famotidine (Pepcid) 20 mg PO BID [facility] Last Admin: 07/19/18 10:16 Dose: 20 mg Heparin Sodium (Porcine) (Heparin) 5,000 units SC Q8 [facility]; Protocol Last Admin: 07/09/18 20:10 Dose: Not Given Fluconazole (Diflucan Iv 200 Mg/100 Ml Ns) 100 mls @ 100 mls/hr IVPB DAILY [facility]; Protocol Last Admin: 07/19/18 10:11 Dose: 100 mls/hr Ceftazidime/Avibactam 1.25 gm/ (Sodium Chloride) 100 mls @ 50 mls/hr IVPB Q8H [facility]; Protocol Stop: 07/23/18 17:16 Last Admin: 07/19/18 13:16 Dose: 50 mls/hr Vancomycin HCl (Vancomycin 1gm) 1 gm in 250 mls @ 167 mls/hr IVPB STAT [facility]; Protocol Stop: 07/19/18 15:55 Lactic Acid (Lac-Hydrin 12% Lotion (225 G)) 0 gm EXT BID [facility] Last Admin: 07/19/18 10:17 Dose: 1 applic Levothyroxine Sodium (Synthroid) 25 mcg PO ACB [facility] Last Admin: 07/19/18 10:15 Dose: 25 mcg Lorazepam (Ativan) 0.5 mg PO Q12 PRN; Protocol PRN Reason: Agitation Last Admin: 07/19/18 10:13 Dose: 0.5 mg Metoprolol Tartrate (Lopressor) 25 mg PO BRKDIN [facility] Last Admin: 07/19/18 10:16 Dose: 25 mg Nystatin (Nystop Topical Powder) 0 gm TOP BID [facility] Last Admin: 07/19/18 10:17 Dose: 1 applic Quetiapine Fumarate (Seroquel) 12.5 mg PO BID [facility]; Protocol Last Admin: 07/19/18 10:19 Dose: 12.5 mg Quetiapine Fumarate (Seroquel) 50 mg PO HS [facility]; Protocol Last Admin: 07/18/18 21:30 Dose: 50 mg Thiamine HCl (Vitamin B1 Inj) 100 mg IM DAILY [facility] Last Admin: 07/19/18 10:21 Dose: 100 mg Ziprasidone (Geodon Inj) 10 mg IM Q12 PRN; Protocol PRN Reason: Agitation Last Admin: 07/18/18 09:01 Dose: 10 mg - Labs Labs: 07/19/18 07:00 07/19/18 07:00 PT 16.5 SECONDS (9.4-12.5) H 07/08/18 14:45 INR 1.44 07/08/18 14:45 APTT 32.4 Seconds (25.1-36.5) 07/08/18 14:45 - Constitutional Appears: Chronically Ill - Head Exam Head Exam: NORMAL INSPECTION - Neck Exam Neck Exam: absent: Meningismus - Respiratory Exam Respiratory Exam: Decreased Breath Sounds - Cardiovascular Exam Cardiovascular Exam: +S1, +S2 - GI/Abdominal Exam GI & Abdominal Exam: Soft. 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 S/P tPA infusion history of left lower extremity skin and skin structure infection with Klebsiella and MRSA in a patient with chronic venous stasis ulcers with no evidence of abscess or osteomyelitis on MRI, clinically improving Probable CHF exacerbation chronic systolic CHF with EF 25% chronic atrial fibrillation chronic lymphedema with chronic venous stasis COPD HTN history of gastric bypass surgery history of left knee surgery Plan will continue Avycaz day 5 and will continue Diflucan - repeat urine cx showing Pseudomonas and Klebsiella and we are awaiting identification and sensitivities - will need 7-10 days of antibiotics repeat blood cx are negative and will give intermittent IV Vancomycin (Day 4) and will check CXR to assess IV line will continue to monitor clinically
[2018-07-20] MEDS ORDERED: Vancomycin 2 GM in Sodium Chloride 0.9% 500 ML IVPB ONE (13:54)
--- NOTE | 2018-07-20 14:20 | RAD ---
Date of service: 07/20/2018 HISTORY: evaluate central line COMPARISON: 07/01/2018 FINDINGS: LUNGS: The lungs are well inflated and clear. PLEURA: No pleural effusions or pneumothorax. CARDIOVASCULAR: Persistent moderate cardiomegaly. No aortic atherosclerotic calcification present. OSSEOUS STRUCTURES: Within normal limits for the patient's age. VISUALIZED UPPER ABDOMEN: Normal. OTHER FINDINGS: None. IMPRESSION: No active pulmonary disease.
--- NOTE | 2018-07-20 16:34 | PN ---
DATE: 07/20/2018 SUBJECTIVE: The patient is agitated. PHYSICAL EXAMINATION: VITAL SIGNS: Temperature is 97.8, pulse is 60, blood pressure 150/88, respirations 20. GENERAL: The patient is lying in bed, flat, comfortable. HEENT: No oral lesion. Anicteric sclerae. Moist mucosa. NECK: No JVD, adenopathy, or thyromegaly. CARDIOVASCULAR: S1 and S2, regular. No murmurs, rubs, or gallops. LUNGS: Clear to auscultation bilaterally. No wheeze, rales, or rhonchi. ABDOMEN: Bowel sounds are positive, soft, nontender and nondistended. EXTREMITIES: No cyanosis, clubbing or edema. LABORATORY DATA: Creatinine is 1.6, white count of 4.5, hemoglobin 11.8. ASSESSMENT: 1. Acute kidney injury secondary to suprapubic catheter dysfunction. 2. Urinary tract infection secondary to Klebsiella and Pseudomonas. 3. Hypertension. 4. Atrial fibrillation, on Eliquis. PLAN: The patient is currently comfortable. The patient's creatinine has improved and it continues to improve. The patient's catheter is draining. He is going to continue on Eliquis for anticoagulation. He is on heparin for DVT prophylaxis. The patient is on Lipitor for dyslipidemia. He is receiving Synthroid for hypothyroidism. He is currently on a regular diet. He has labs that are ordered for tomorrow. Jed Dwyer MD
[2018-07-20] MEDS: Albuterol-Ipratrop 3 mg / 0.5 (3 ml) UD IH SCH ×2 (21:08→21:22)
[2018-07-20] MEDS: Acetylcysteine 20% Inhal Soln (4ml) IH SCH ×2 (21:08→21:23)
--- NOTE | 2018-07-20 23:45 | PN ---
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 Benadryl 25 mg p.o. every 8 hours p.r.n., Depakote 500 mg twice a day, DuoNeb nebulizer every 6 hours with Mucomyst nebulizer every 6 hours, Eliquis 2.5 mg twice a day, Geodon 10 mg IM every 12 hours p.r.n. to be given together with Ativan 0.5 mg p.o. every 12 hours p.r.n., heparin 5000 subcu every 8 hours, Lac-Hydrin lotion to the legs, Lipitor 40 mg at bedtime, Lopressor 25 mg twice a day, nystatin powder to the affected area, Pepcid 20 mg twice a day, Seroquel 12.5 mg twice a day and Seroquel 50 mg at bedtime, Synthroid 25 mcg daily, Tylenol 650 mg p.o. every 6 hours p.r.n. The patient received one dose of vancomycin 2 g IV today. The patient received 2 g of vancomycin IV x1 dose today. The patient received vancomycin 1 g IV yesterday. Thiamine 100 mg IM daily, vitamin D3 2000 international units daily. Chest PT. Oxygen 2 L continuous has been ordered. Chest PT has been ordered every 6 hours. The patient has been ordered SCDs, head of the bed at 30 degrees all the time. The patient has been ordered physical therapy and occupational therapy, but the patient was unable to undergo physical therapy or occupational therapy because of the patient's aggressive and combative behavior. The patient's physical therapy will not be attempting to do physical therapy because of the patient's behavior. At present, the patient's prognosis is guarded to poor. The patient is awaiting for discharge disposition to a long-term facility because the patient requires 24-hour care and supervision. In addition, since the patient has been episodically lethargic, the patient has been ordered to have Ativan, Benadryl, Geodon, Seroquel to be held for sedation. The patient will be continued on all the other medications as per the MAR including the Depakote 500 mg twice a day. Dictated and electronically signed, not read. Rashad Brown MD [facility]
[2018-07-21] MEDS: Acetylcysteine 20% Inhal Soln (4ml) IH SCH ×4 (02:04→20:10)
[2018-07-21] MEDS: Albuterol-Ipratrop 3 mg / 0.5 (3 ml) UD IH SCH ×4 (02:04→20:10)
--- NOTE | 2018-07-21 09:04 | PN ---
DATE: 07/21/2018 SUBJECTIVE: Mr. Damon is currently resting comfortably, suprapubic catheter draining well. Urine output noted 550 for the last shift. DIAGNOSES: Urinary retention, voiding dysfunction. PLAN: As follows, we are just waiting for placement, maybe Urology for now. See the remaining previously dictated notes on Mr. Damon. Jae Nance MD
[2018-07-21] MEDS: Divalproex 125 mg EC Sprinkle Cap PO SCH ×2 (10:44→17:14)
[2018-07-21] MEDS: Levothyroxine 25 MCG TAB PO SCH (10:46)
[2018-07-21] MEDS: Thiamine 100 mg/ml Inj IM SCH (10:47)
[2018-07-21] MEDS: Cholecalciferol 1,000 INTLU TAB PO SCH (10:47)
--- NOTE | 2018-07-21 10:56 | PN ---
DATE: 07/16/2018 See the many previously dictated notes. The patient is status post a change of an SP tube. The patient is overall doing well. Periodically, the SP tube has, depending on its position, sometimes difficulty draining, but for the most part, the output is very good. Getting in touch with the nurses. The only issue now is awaiting for a placement. Given his personality and some other difficult issues, I am finding him a care placement. The patient presented himself as a challenge, but we are working on it. From a Urology standpoint, there is no change medically. DIAGNOSES: As follows. Urinary retention, neurogenic bladder, benign prostatic bladder component, also mixed picture. After discussing options overtime, the patient is now scheduled and persuaded for a snf placement. Jae Nance MD
[2018-07-21] MEDS: Nystatin 100,000 Units/gm Topical Pow(15 gm) TOP SCH ×2 (10:58→17:27)
[2018-07-21] MEDS: Ammonium Lactate 12% Lotion (225 g) EXT SCH ×2 (10:58→17:27)
--- NOTE | 2018-07-21 12:32 | PN ---
DATE: 07/18/2018 See my previously dictated notes. The G-tube is draining well. No other medical changes. DIAGNOSES: 1. Aphasia, status post cerebrovascular accident. 2. Urinary retention, voiding dysfunction with a neurogenic component and also that are causing him difficulty, but right now the gastrostomy is maintained well. PLAN: As above. G-tube drainage. Awaiting custodial placement. Rehabilitation medicine and custodial placement. Remainder of the exam is as follows. See the previous notes from 07/17/2018. No changes. Jae Nance MD
--- NOTE | 2018-07-21 12:49 | PN ---
DATE: 07/21/2018 SUBJECTIVE: The patient was seen lying in the bed in room 576, bed 1. The patient was seen and examined. The patient was calm today with me. The patient did not attempt to swing his arms at me. The patient was arousable, awake, responsive. Overnight nurse's notes were reviewed. The patient did have episodes of climbing out of the bed multiple time. Was found to be disoriented. The patient attempted to hit the staff. According to the nurses' note, the patient was found to be incontinent of stool. The patient attempted to come out of the bed multiple times. The patient was noticed by the nurses to be screaming at the staff. The patient was found to be yelling, screaming, attempted to come out of this bed. Attempting to hit staff and combative. The patient was found to be combative. PHYSICAL EXAMINATION: VITAL SIGNS: T-max 97.4-97.6; heart rate 55, 89, 62; blood pressure 150/86, 157/80; respirations 20; O2 sat 96%. HEENT: Head examination normocephalic, atraumatic. HEENT examination shows pinkish pale conjunctivae. Dry oral mucosa. No neck rigidity. CHEST: Symmetrical. LUNGS: Shows no audible rales, crackles or wheezing. CARDIOVASCULAR: S1, S2. Irregular rhythm. Positive questionable systolic murmur, left sternal border, right second intercostal space, left second intercostal space. ABDOMEN: Soft, obese. Positive bowel sound. GENITALIA: Male. Positive chronic skin changes. MUSCULOSKELETAL: Shows a body mass index of 47. NEUROLOGIC: The patient is alert, awake, responsive. Expressive aphasia noted. Gait examination not tested. At present, the patient's nurses report that the patient's midline is not flushing and they are unable to get blood from the right midline. I have advised the patient's nurse to try using cath flow. That is why the patient's lab work is not done today. IMPRESSION AND PLAN: 1. Voiding dysfunction with suprapubic cystostomy malfunction and dysfunction. 2. Status post suprapubic cystostomy revision. 3. Multidrug resistant Klebsiella pneumoniae urinary tract infection and Pseudomonas aeruginosa urinary tract infection. 4. Coagulase-negative Staphylococcus aureus bacteremia, sepsis versus contamination. 5. Yeast urinary tract infection and funguria. 6. Behavioral disorder with episodic yelling, screaming, combative behavior and high risk for falls. 7. History of cerebral infarct with right-sided hemiparesis. 8. Normocytic anemia. 9. Mild coagulopathy. 10. Acute kidney injury (resolved). 11. Multidrug resistant Klebsiella pneumoniae urinary tract infection and Pseudomonas aeruginosa urinary tract infection and yeast urinary tract infection and funguria with proteinuria, ketonuria, hematuria, bilirubinuria, pyuria, bacteriuria. 12. Gait dysfunction. 13. Bedridden status. 14. Questionable functional quadriplegia with right-sided 1. Suprapubic cystostomy malfunction and dysfunction. 2. Status post suprapubic cystostomy revision. 3. Voiding dysfunction. 4. Urinary retention. 5. Status post replacement of the suprapubic cystostomy with a large catheter suprapubic cystostomy and cystogram. 6. Acute kidney injury (resolved versus resolving). 7. Anticoagulation-dependent atrial fibrillation. 8. Hypertension. 9. Behavioral disorder with aggressive combative behavior. 10. Gait dysfunction. 11. History of cerebral infarct with right-sided hemiparesis. 12. Normocytic anemia. 13. Granulocytosis. 14. Thrombocytopenia. 15. Acute kidney injury (resolved versus resolving). 16. Multidrug-resistant Klebsiella pneumoniae and Pseudomonas aeruginosa, and yeast urinary tract infection and funguria. 17. Coagulase-negative Staphylococcus aureus, coagulase-negative bacteremia sepsis versus contamination. 18. Proteinuria, ketonuria, microscopic hematuria, pyuria, bacteriuria. 19. Gait dysfunction. 20. Right hemiparesis. 21. Cardiomegaly. 22. Status post right upper extremity midline placement. 23. History of longstanding poor compliance, noncompliance. 24. Status post Lap-Band. 25. Cholelithiasis. 26. Right renal cyst. 27. Voiding dysfunction. 28. Morbid obesity with elevated body mass index of 47. 29. Episodic lethargy. 30. Anticoagulation-dependent atrial fibrillation. 1. Gram-positive cocci in clusters, bacteremia versus sepsis versus contamination. 2. Multidrug-resistant Klebsiella pneumoniae urinary tract infection and Pseudomonas aeruginosa urinary tract infection. 3. Funguria with yeast urinary tract infection. 4. Recently treated Clostridium difficile associated diarrhea and pseudomembranous colitis. 5. Suprapubic cystostomy malfunction, status post revision. 6. Acute kidney injury (resolving). 7. Gait dysfunction. 8. Right hemiparesis. 9. Gait dysfunction. 10. Anticoagulation requiring atrial fibrillation. 11. Behavioral disorder, probably secondary to cerebral infarct and aphasia. 12. Right hemiparesis. 13. Deconditioning. 14. Gait dysfunction. 15. Morbid obesity. 16. History of gastric lap pending. 17. Suprapubic cystostomy with malfunction and revision. 18. Lymphedema of the lower extremities with chronic lower extremity venous stasis. 19. Hypovitaminosis D. 20. Atrial fibrillation with slow ventricular response. 21. Hyperlipidemia. 22. Hypothyroidism. 23. Normocytic anemia. 24. Degenerative joint disease of the spine, hips and knees. 25. History of constipation. 1. Acute renal failure and acute kidney injury, etiology undetermined. 2. Hypertension. 3. Anemia. 4. Granulocytosis. 5. Gram-positive cocci in clusters bacteremia and sepsis. 6. Multidrug resistant Klebsiella pneumoniae urinary tract infection and Pseudomonas aeruginosa urinary tract infection. 7. Funguria. 8. Yeast urinary tract infection. 9. Proteinuria, microscopic hematuria, pyuria, bacteriuria. 10. Acute kidney injury (slow resolving). 11. Severe gait dysfunction with right-sided hemiparesis. 12. History of cerebral infarct with right hemiparesis. 14. Agitated, restless, combative behavior and behavioral disorder. 15. Normocytic anemia. 16. Status post lab lap band. 17. Cholelithiasis. 18. Right renal cyst. 19. Voiding dysfunction with suprapubic cystostomy placement and revision secondary to suprapubic cystostomy malfunction. 20. Deconditioning. 22. Gait dysfunction. 23. Anticoagulation requiring atrial fibrillation. 24. Hypertension. 25. Atrial fibrillation with slow ventricular response. 26. Pseudomembranous colitis with Clostridium difficile associated diarrhea. 27. Bilateral lower extremity lymphedema with history of bilateral lower extremity venous stasis. 1. Multidrug-resistant Klebsiella pneumoniae urinary tract infection. 2. Yeast urinary tract infection and funguria. 3. Atrial fibrillation with slow ventricular response. 4. Hypertension. 5. Vascular dementia with severe behavioral disorders with agitation, combativeness and confusion. 6. History of cerebral infarct with right-sided paresis with apraxia, dysarthria and expressive aphasia. 7. Severe gait dysfunction and deconditioning. 8. Morbid obesity. 9. Voiding dysfunction. 10. Suprapubic cystostomy malfunction. 11. Status post suprapubic cystostomy revision. 12. History of lymphedema of the lower extremity with a history of venous stasis of the lower extremity. 13. Longstanding history of poor compliance and noncompliance. 14. Clostridium difficile-associated diarrhea and pseudomembranous colitis (resolved). 15. Hypertension. 16. Atrial fibrillation requiring anticoagulation. 17. Hypothyroidism. 18. Hyperlipidemia. 19. History of constipation. 20. Degenerative joint disease of the spine, knees and hips. 21. Possible delirium. 22. Combative, agitated and assaultive behavior; etiology unclear. 23. Poor compliance. 24. Recurrent urinary tract infection. 25. Voiding dysfunction. 26. Possible neurogenic bladder. 1. Vascular dementia with extreme and severe behavioral disorders. 2. Multidrug resistant Klebsiella pneumoniae urinary tract infection with funguria and yeast urinary tract infection. 3. Toxic metabolic encephalopathy. 4. Severe behavioral disorder with episodes of screaming, combative behavior. 5. High risk for fall. 6. Gait dysfunction. 7. Cerebral infarct with right hemiparesis. 8. Anticoagulation dependent atrial fibrillation. 9. Voiding dysfunction with suprapubic cystostomy placement. 10. History of cerebrovascular accident with right-sided hemiparesis with expressive aphasia, dysarthria, and apraxia. 11. Hypertension. 12. Atrial fibrillation with variable ventricular response. 13. Multidrug-resistance Klebsiella pneumoniae urinary tract infection. 14. Possible delirium. 15. Bilateral lower extremity lymphedema and history of venous stasis of the lower extremity. 16. Vascular dementia with severe behavioral disturbances and superimposed underlying toxic metabolic encephalopathy. 17. Voiding dysfunction. 18. Combative behavior. 1. Severe behavioral disorders with continued episodes of agitation, combativeness and yelling and screaming and severe behavior disorder. 2. Gram-negative ankita and yeast urinary tract infection and funguria. 3. Voiding dysfunction. 4. Suprapubic cystostomy malfunction and dysfunction, status post revision of the suprapubic cystostomy. 5. Neurogenic bladder. 6. History of cerebral infarct with right-sided paresis. 7. Expressive aphasia, dysarthria and apraxia. 8. Anticoagulation-dependent atrial fibrillation. 9. Congestive heart failure and dilated cardiomyopathy. 10. Pulmonary hypertension. 11. History of gastric bypass surgery. 12. Suprapubic cystostomy. 13. Clostridium difficile-associated diarrhea and pseudomembranous colitis (resolved). 14. Lower extremity lymphedema and venous stasis ulceration. 15. Morbid obesity. 16. Gait dysfunction. 17. Deconditioning. 18. Right hemiparesis. 20. History of constipation. 21. Degenerative joint disease of the spine, hips, knees. 22. History of longstanding noncompliance and poor compliance. 1. Suprapubic cystostomy tube malfunction. 2. Status post revision and replacement of the suprapubic cystostomy. 3. Voiding dysfunction. 4. Urinary incontinence and urinary retention. 5. Behavioral disorders with episodes of agitation, restlessness, combative behavior. 6. Cerebral infarct with right-sided paresis. 7. Dysarthria, expressive aphasia, and apraxia. 8. Poor compliance and noncompliance. 9. Hypertension. 10. Anticoagulation-dependent atrial fibrillation. 11. Morbid obesity. 12. History of bilateral lower extremity lymphedema and venous stasis. 13. Gait dysfunction. 14. Deconditioning. 15. Morbid obesity. 16. Hyperlipidemia. 17. Hypothyroidism. 18. History of gastric bypass surgery. 19. Degenerative joint disease of the spine, knees, and hips. 20. History of constipation. 21. Clostridium difficile-associated diarrhea and pseudomembranous colitis (resolving). 1. Behavioral disorder with episodes of agitation, confusion, combativeness. 2. Suprapubic cystostomy malfunction and dysfunction. 3. Status post suprapubic cystostomy revision with placement of the new 16-Kittitian two-way suprapubic cystostomy. 4. Urinary retention and incontinence. 5. Voiding dysfunction. 6. Hypertension. 7. Atrial fibrillation. 8. Morbid obesity with elevated body mass index of 47. 9. History of cerebral infarct with right-sided paresis. 10. Dysarthria, apraxia, expressive aphasia. 11. Chronic kidney disease stage 3. 12. Hyperbilirubinemia. 13. Morbid obesity. 14. History of bilateral lower extremity lymphedema and venous stasis. 15. Gait dysfunction. 16. Deconditioning. 17. Behavioral disorder. 18. Anticoagulation-dependent atrial fibrillation. 19. Hyperlipidemia. 20. History of hypothyroidism, history of hypovitaminosis D, history of anxiety disorder. 21. History of clostridium difficile associated diarrhea and pseudomembranous colitis (resolving). 1. Status post revision of the suprapubic cystostomy with placement of 16-Kittitian two-way suprapubic cystostomy. 2. Voiding dysfunction. 3. Neurogenic bladder. 4. Behavioral disorder with episodes of screaming, agitation and yelling. 5. Episodic confusion. 6. History of cerebral infarct with right-sided residual hemiparesis. 7. Morbid obesity. 8. History of anticoagulation requiring atrial fibrillation. 9. Dilated cardiomyopathy. 10. Pulmonary hypertension. 11. History of gastric bypass surgery. 12. Status post suprapubic cystostomy placement. 13. Urinary incontinence, urinary retention and voiding dysfunction. 14. Bilateral lower extremity lymphedema with history of MRSA cellulitis of the bilateral lower extremities venous stasis ulceration. 15. Morbid obesity. 16. Hypertension. 17. Elevated body mass index. 18. Gait dysfunction. 19. Longstanding history of noncompliance and poor compliance. 20. History of hypertension, hyperlipidemia, hypothyroidism. 1. Suprapubic cystostomy malfunction. 2. Status post revision and placement of 16-Kittitian two-way suprapubic cystostomy tube placement. 3. Voiding dysfunction. 4. Neurogenic bladder. 5. Urinary incontinence. 6. Behavioral disorder with agitation and screaming behavior. 7. History of cerebral infarct with right-sided residual weakness and hemiparesis. 8. Anticoagulation-dependent atrial fibrillation. 9. Morbid obesity. 10. Hypertension. 11. . 12. Morbid obesity, status post gastric bypass surgery. 13. Cardiomyopathy. 14. Hypothyroidism. 15. Expressive aphasia, dysarthria and apraxia. 16. Gait dysfunction. 17. Deconditioning. 18. Bilateral lower extremity lymphedema and venous stasis. 19. 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 20. History of constipation. 21. Clostridium deficit associated diarrhea and pseudomembranous colitis (resolving versus resolved). 23. Hyperlipidemia. 24. Hypothyroidism. 1. Suprapubic cystostomy malfunction and dysfunction. 2. Status post suprapubic cystostomy catheter change with 16-Kittitian two-way suprapubic cystostomy placement. 3. Gait dysfunction. 4. Deconditioning. 5. Morbid obesity. 6. History of cerebral infarct with residual right-sided weakness. 7. Expressive aphasia, apraxia, and dysarthria. 8. Longstanding chronic noncompliance and poor compliance. 9. Anticoagulation-dependent atrial fibrillation. 10. Cardiomyopathy. 11. Pulmonary hypertension. 12. Hypothyroidism. 13. Bilateral lower extremity lymphedema with history of venous stasis ulceration of the lower extremity. 14. Degenerative joint disease of the spine, hips, and knees. 15. Voiding dysfunction. 16. Possible neurogenic bladder. 17. History of constipation. 18. Clostridium difficile associated diarrhea and pseudomembranous colitis, presently on p.o. Vancocin. 19. History of dilated cardiomyopathy and systolic congestive heart failure. 20. Hyperlipidemia. 21. Hypertension. 1. Suprapubic cystostomy malfunction. 2. Voiding dysfunction with urinary retention and urinary incontinence. 3. Hypertension. 4. Granulocytosis. 5. Anticoagulation dependent atrial fibrillation. 6. Chronic kidney disease stage 3. 7. Morbid obesity. 8. Deconditioning. 9. Gait dysfunction. 10. 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 11. Longstanding history of poor and noncompliance. 12. Behavioral disorder. 13. Chronic bilateral lower extremity lymphedema. 14. Hyperlipidemia. 15. Hypothyroidism. 16. Clostridium difficile associated diarrhea and pseudomembranous colitis and (resolved). 17. Hypovitaminosis D. 18. Questionable anxiety disorder. 19. History of constipation. 1. Suprapubic cystostomy malfunction with questionable urinary incontinence from the suprapubic catheter site. 2. Hypertension. 3. Gait dysfunction. 4. Granulocytosis. 5. Chronic kidney disease, stage III. 6. Mild hyperbilirubinemia. 7. Morbid obesity. 8. History of cerebral infarct with residual right-sided weakness (almost resolved). 9. Clostridium difficile associated diarrhea with pseudomembranous colitis. 10. Behavioral disorder with agitation and combativeness. 11. Hypokalemia. 12. Anticoagulation requiring atrial fibrillation. 13. Hypothyroidism. 14. History of constipation. 15. Hypovitaminosis D. 16. Hyperlipidemia. 17. Questionable anxiety disorder. 1. Clostridium difficile associated diarrhea and pseudomembranous colitis (resolving). 2. Altered mental status with behavioral disorder with combative, aggressive behavior. 3. History of longstanding noncompliance. 4. Hypertension. 5. Deconditioning. 6. History of cerebral infarct with residual right-sided weakness (resolved). 7. Mild normocytic anemia. 8. Granulocytosis. 9. Anticoagulation-dependent atrial fibrillation. 10. Hypokalemia. 11. Status post acute kidney injury. 12. Mild hyperbilirubinemia. 13. Hypomagnesemia. 14. History of hypothyroidism. 15. History of hypovitaminosis D. 16. History of hyperlipidemia. 17. Proteinuria, hematuria, pyuria, bacteriuria. 18. Gait dysfunction. 19. History of bilateral lower extremity lymphedema and bilateral lower extremity venous stasis. 20. 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 21. Cholelithiasis. 22. Anterior abdominal wall muscular atrophy. 23. Incidental finding of cholelithiasis. 24. Morbid obesity. 25. Cardiomyopathy. 26. Pulmonary hypertension. 1. Persistent behavioral disorder with continuous and intermittent screaming and yelling and agitation. 2. Vascular type dementia and delirium. 3. Status post acute kidney injury (resolved). 4. Hypertension. 5. Hypokalemia. 6. Hypomagnesemia. 7. Chronic kidney disease stage III. 8. Anticoagulation requiring atrial fibrillation. 9. Mild normocytic anemia. 10. Granulocytosis. 11. History of hypothyroidism. 12. History of cardiomyopathy. 13. Longstanding history of poor compliance and noncompliance. 14. Gait dysfunction. 15. Proteinuria, microscopic hematuria, pyuria, bacteriuria. 16. Clostridium difficile associated diarrhea and pseudomembranous colitis. 17. Deconditioning. 18. Morbid obesity. 19. Voiding dysfunction and neurogenic bladder with status post suprapubic cystostomy. 20. Anticoagulation requiring atrial fibrillation. 21. Hyperlipidemia. 22. Hypothyroidism. 23. Hypovitaminosis D. 24. Agitation and combative behavior. 25. Vascular dementia with delirium. 1. Delirium versus possible vascular dementia. 2. Behavioral disorder, probably secondary to cerebral infarct. 3. Extremely poor compliance and noncompliance with history of longstanding noncompliance and poor compliance. 4. Gait dysfunction. 5. Morbid obesity. 6. History of cerebral infarct with right-sided residual hemiparesis and weakness. 7. Expressive aphasia, dysarthria, apraxia. 8. Extremely poor compliance with refusing to take medications, refusing to do physical therapy, refusing to be out of bed to chair. 9. Normocytic anemia. 10. Anticoagulation requiring atrial fibrillation. 11. Morbid obesity, status post gastric bypass surgery. 12. Neurogenic bladder and voiding dysfunction with status post suprapubic cystostomy placement. 13. Mild hypoalbuminemia. 14. Status post acute kidney injury. 15. Congestive heart failure. 16. Pulmonary hypertension. 17. Bilateral lower extremity lymphedema and venous stasis of the lower extremity. 18. Hyperlipidemia. 19. Hypertension. 20. Hypothyroidism. 21. Voiding dysfunction. 1. Severe behavioral disorder. 2. Agitated and combative behavior. 3. Delirium. 4. Vascular dementia. 5. Severe cerebral cortical atrophy and chronic microvascular ischemic disease of the brain on MRI of the brain. 6. Gait dysfunction. 7. Deconditioning. 8. Status post acute kidney injury. 9. Anticoagulation-dependent atrial fibrillation. 10. History of cerebral infarct with right-sided residual hemiparesis and weakness. 11. Pseudomembranous colitis with Clostridium difficile associated diarrhea (resolving). 12. Hypertension. 13. Morbid obesity, status post gastric bypass surgery. 14. Voiding dysfunction with neurogenic bladder, status post suprapubic cystostomy placement. 15. Gait dysfunction. 16. Deconditioning. 17. Uncooperative behavior. 18. History of longstanding poor compliance and noncompliance. 19. Atrial fibrillation. 20. Hyperlipidemia. 21. History of chronic constipation. 22. 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 23. History of bilateral lower extremity lymphedema and venous stasis. 1. Clostridium difficile associated diarrhea and colitis with Clostridium difficile toxin and antigen positive. 2. Delirium. 3. Vascular dementia. 4. Toxic metabolic encephalopathy. 5. Behavioral disorder. 6. Episodic agitation and noncompliance with medication treatment, etc. 7. Normocytic anemia. 8. Anticoagulation-dependent atrial fibrillation. 9. History of cerebrovascular infarct with right residual hemiparesis. 10. Expressive aphasia, dysarthria and apraxia. 11. Normocytic anemia. 12. Acute kidney injury with underlying chronic kidney disease stage 3 A and B. 13. Normocytic anemia. 14. Hypertension. 15. Atrial fibrillation. 16. Hypokalemia. 17. Hypomagnesemia. 18. Acute exacerbation of delirium and vascular dementia. 19. Right ventricular dysfunction with cardiorenal syndrome. 20. History of dilated cardiomyopathy and systolic congestive heart failure. 21. Gait dysfunction. 22. Bilateral lower extremity venous lymphedema. 23. Morbid obesity, history of gastric bypass surgery. 24. Neurogenic bladder with voiding dysfunction, status post suprapubic cystostomy. 25. History of hyperlipidemia. 26. History of chronic constipation. 27. History of degenerative joint disease of the spine, knees and hips. 28. Morbid obesity. 1. Episodic agitation and restlessness with possible behavioral disorder. 2. History of cerebrovascular accident with right-sided hemiparesis. 3. Questionable and possible Clostridium difficile associated diarrhea. 4. Normocytic anemia. 5. History of Clostridium difficile colitis. 6. Hypokalemia. 7. Acute kidney injury (resolving). 8. Hypomagnesemia. 9. History of hypothyroidism. 10. Episodic agitation and restlessness, probably secondary to aphasia, apraxia and dysarthria. 11. Cholelithiasis. 12. Right renal cyst. 13. History of gastric bypass. 14. Prostatomegaly. 15. Voiding dysfunction status post suprapubic cystostomy. 16. Old right frontal infarct. 17. Microvascular ischemic disease of the brain. 18. Cerebral cortical atrophy of the brain. 19. Decreased high-density lipoprotein. 1. Questionable altered mental status with possible behavioral disorder with combative and aggressive behavior. 2. Questionable Clostridium difficile associated diarrhea. 3. Mild normocytic anemia. 4. Granulocytosis. 5. Hypokalemia. 6. Chronic kidney disease stage 3. 7. Status post suprapubic cystostomy. 8. Proteinuria. 9. Microscopic hematuria, pyuria, bacteriuria. 10. History of left-sided cerebral cortical infarct with right hemiparesis. 11. Cardiomegaly. 12. Dilated cardiomyopathy. 13. Pulmonary hypertension. 14. Bilateral lower extremity venous stasis and lymphedema. 15. Deconditioning. 16. Gait dysfunction. 17. Morbid obesity. 18. Atrial fibrillation. 19. Expressive aphasia, dysarthria, apraxia. 20. Hypertension. 21. History of anxiety. 22. Hyperlipidemia. 23. Coumadin-dependent atrial fibrillation. 24. Hypovitaminosis D. 25. History of hypothyroidism. 26. History of constipation, history of hypokalemia, history of prostatic hypertrophy. 27. History of noncompliance. Rashad Brown MD [facility]
--- NOTE | 2018-07-21 12:53 | CP.PCM.PN ---
Subjective - Date & Time of Evaluation Date of Evaluation: 07/21/18 Time of Evaluation: 12:50 - Subjective Subjective: Nephrology Progress Note for Dr. Webb Patient seen and examined at bedside. Suprapubic catheter is functioning well. ROS unobtainable due to patients mental status. Objective - Vital Signs/Intake and Output Vital Signs (last 24 hours): Temp Pulse Resp BP Pulse Ox 97.4 F L 62 20 157/80 H 96 07/21/18 06:00 07/21/18 10:45 07/21/18 06:00 07/21/18 10:45 07/21/18 06:00 Intake and Output: 07/21/18 07/21/18 06:59 18:59 Output Total 700 Balance -700 - Medications Medications: Current Medications Acetaminophen (Tylenol 325mg Tab) 650 mg PO Q6 PRN PRN Reason: TEMP>=99.5F Last Admin: 07/20/18 21:25 Dose: 650 mg Acetaminophen (Tylenol 650 Mg Supp) 650 mg RC Q6H PRN PRN Reason: TEMP>=99.5F Acetylcysteine (Acetylcysteine 20%) 4 ml IH [id number] [facility] Last Admin: 07/21/18 08:16 Dose: 4 ml Albuterol/Ipratropium (Duoneb 3 Mg/0.5 Mg (3 Ml) Ud) 3 ml IH [id number] [facility] Last Admin: 07/21/18 08:15 Dose: 3 ml Apixaban (Eliquis) 2.5 mg PO BID [facility]; Protocol Last Admin: 07/21/18 10:44 Dose: 2.5 mg Aspirin (Aspirin Chewable) 81 mg PO DAILY [facility] Last Admin: 07/20/18 09:30 Dose: 81 mg Atorvastatin Calcium (Lipitor) 40 mg PO HS [facility] Last Admin: 07/20/18 21:24 Dose: 40 mg Cholecalciferol (Vitamin D) 2,000 intlu PO DAILY [facility] Last Admin: 07/21/18 10:47 Dose: 2,000 intlu Diphenhydramine HCl (Benadryl) 25 mg PO Q8H PRN PRN Reason: Itching / Pruritus Last Admin: 07/20/18 21:24 Dose: 25 mg Divalproex Sodium (Depakote Sprinkles) 500 mg PO BID [facility]; Protocol Last Admin: 07/21/18 10:44 Dose: 500 mg Famotidine (Pepcid) 20 mg PO BID [facility] Last Admin: 07/21/18 10:45 Dose: 20 mg Heparin Sodium (Porcine) (Heparin) 5,000 units SC Q8 [facility]; Protocol Last Admin: 07/09/18 20:10 Dose: Not Given Ceftazidime/Avibactam 1.25 gm/ (Sodium Chloride) 100 mls @ 50 mls/hr IVPB Q8H [facility]; Protocol Stop: 07/23/18 17:16 Last Admin: 07/21/18 10:43 Dose: 50 mls/hr Lactic Acid (Lac-Hydrin 12% Lotion (225 G)) 0 gm EXT BID [facility] Last Admin: 07/21/18 10:58 Dose: 1 applic Levothyroxine Sodium (Synthroid) 25 mcg PO ACB [facility] Last Admin: 07/21/18 10:46 Dose: 25 mcg Lorazepam (Ativan) 0.5 mg PO Q12 PRN; Protocol PRN Reason: Agitation Last Admin: 07/20/18 15:42 Dose: 0.5 mg Metoprolol Tartrate (Lopressor) 25 mg PO BRKDIN [facility] Last Admin: 07/21/18 10:45 Dose: 25 mg Nystatin (Nystop Topical Powder) 0 gm TOP BID [facility] Last Admin: 07/21/18 10:58 Dose: 1 applic Quetiapine Fumarate (Seroquel) 12.5 mg PO BID [facility]; Protocol Last Admin: 07/21/18 10:46 Dose: 12.5 mg Quetiapine Fumarate (Seroquel) 50 mg PO HS [facility]; Protocol Last Admin: 07/20/18 22:00 Dose: Not Given Thiamine HCl (Vitamin B1 Inj) 100 mg IM DAILY [facility] Last Admin: 07/21/18 10:47 Dose: 100 mg Ziprasidone (Geodon Inj) 10 mg IM Q12 PRN; Protocol PRN Reason: Agitation Last Admin: 07/20/18 21:25 Dose: 10 mg - Labs Labs: 07/20/18 08:45 07/20/18 08:45 PT 16.5 SECONDS (9.4-12.5) H 07/08/18 14:45 INR 1.44 07/08/18 14:45 APTT 32.4 Seconds (25.1-36.5) 07/08/18 14:45 Assessment and Plan - Assessment and Plan (Free Text) Assessment: 63 yo M with PMH of CHFpEF, chronic atrial fibrillation, chronic lymphedema with chronic venous stasis, COPD, HTN, history of gastric bypass surgery, history of left knee surgery, right leg infected venous stasis ulcers, obstructive sleep apnea, right leg venous stasis ulcers history with previous growth of MRSA and Pseudomonas, history of CVA with residual aphasia admitted to [facility] for malfunctioning suprapubic catheter. Nephrology consulted for acute renal failure. Plan: 1. Acute renal failure 2/2 obstructed suprapubic catheter - Creatinine improving after catheter change, which appears to be draining well with no leaks - Urology following 2. UTI - UA positive - Urine culture positive for Klebsiella and Pseudomonas - Blood culture positive for gram positive cocci; possible contamination - Abx per ID, renally dosed - ID following 3. HTN - Metoprolol - Holding Losartan, can resume on discharge 4. Chronic a-fib - Cont eliquis, renally dosed 5. CHFpEF - Holding Torsemide, can resume on discharge Patient discussed in detail with attending. Ismael Crandall, DO PGY2
--- NOTE | 2018-07-21 15:10 | PN ---
DATE: 07/21/2018 SUBJECTIVE: Shortly, the patient is 63-year-old male with multiple medical issues including CVA with residual aphasia, right-sided weakness, pulmonary hypertension, systolic congestive heart failure with ejection fraction of 25%, COPD, hypertension, chronic lymphedema, atrial fibrillation, morbid obesity and neurogenic bladder status post suprapubic catheter placement in the past. The patient was on antibiotics via PICC line. The patient was admitted on the medical floor for evaluation of leakage of suprapubic catheter. Psych consult was called for evaluation of mental status. The patient has history of agitated behavior, which seems to be related to expressive fascia and inability to express himself. The patient was seen by Dr. Aguilar over the weekend and this newspaper writer takes over. The patient was seen and examined. Notes reviewed. Discussed with the medical team as well as nursing staff. As per nursing staff, patient has episodes of kicking his legs, the patient has episodes of screaming and yelling, which seems to be chronic. Notes from the medical team as well as Infectious Disease as well as Urology team is reviewed. As per Infectious Disease assessment, the patient has multidrug resistant Klebsiella and yeast infection with suprapubic Sevilla catheter used. The patient has gram-positive cocci in clusters in 2 of 4 blood cultures. The patient is on Avycaz and Diflucan in regards of Urology as per Urology note with suprapubic catheter draining well. Notes from Dr. Brown reviewed. Vital signs reviewed. Temperature 97.6, pulse is 89, blood pressure 150/86, respiration 18, oxygen saturation is 100. Medications reviewed. The patient is on Tylenol, n-acetylcysteine, albuterol, Eliquis, aspirin, Lipitor, ceftazidime/avibactam, vitamin D, Benadryl, Depakote 500 mg twice a day, Pepcid, heparin, Synthroid, Ativan, Lopressor, nystatin, Seroquel which started by medical team, vitamin B1, Geodon 10 mg every 12 hours as needed. Labs reviewed. Most recent was from 07/20. Toxicology reviewed. Valproic acid was 30 on 07/17. Microbiology reviewed. MENTAL STATUS EXAMINATION: The patient was resting comfortably. The patient was with breathing treatment during this newspaper writer's assessment There is no acute agitation or aggression, but the patient was not able to participate in interview. IMPRESSION: Expressive aphasia and rule out mood disorder and anxiety disorder due to general medical condition. Delirium cannot be excluded. PLAN: At present moment, there is no acute issues from the psychiatric standpoint. There is no signs of toxicity from Depakote. Family is involved. Overall prognosis is very poor. This newspaper writer will sign off. Should you have any questions, give me a call back. Thank you very much for letting me participate in care of your patient. Shana Esposito MD
--- NOTE | 2018-07-21 17:21 | CP.PCM.PN ---
Subjective - Date & Time of Evaluation Date of Evaluation: 07/21/18 Time of Evaluation: 11:25 - Subjective Subjective: No fevers, not in distress. Objective - Vital Signs/Intake and Output Vital Signs (last 24 hours): Temp Pulse Resp BP Pulse Ox 97.8 F 60 20 150/88 98 07/20/18 07:00 07/20/18 09:34 07/20/18 07:00 07/20/18 09:34 07/20/18 07:00 Intake and Output: 07/20/18 07/20/18 06:59 18:59 Intake Total 100 Output Total 600 Balance -500 - Medications Medications: Current Medications Acetaminophen (Tylenol 325mg Tab) 650 mg PO Q6 PRN PRN Reason: TEMP>=99.5F Last Admin: 07/20/18 09:32 Dose: 650 mg Acetaminophen (Tylenol 650 Mg Supp) 650 mg RC Q6H PRN PRN Reason: TEMP>=99.5F Apixaban (Eliquis) 2.5 mg PO BID [facility]; Protocol Last Admin: 07/20/18 09:33 Dose: 2.5 mg Aspirin (Aspirin Chewable) 81 mg PO DAILY [facility] Last Admin: 07/20/18 09:30 Dose: 81 mg Atorvastatin Calcium (Lipitor) 40 mg PO HS [facility] Last Admin: 07/19/18 22:24 Dose: 40 mg Cholecalciferol (Vitamin D) 2,000 intlu PO DAILY [facility] Last Admin: 07/20/18 09:31 Dose: 2,000 intlu Diphenhydramine HCl (Benadryl) 25 mg PO Q8H PRN PRN Reason: Itching / Pruritus Last Admin: 07/20/18 09:30 Dose: 25 mg Divalproex Sodium (Depakote Sprinkles) 500 mg PO BID [facility]; Protocol Last Admin: 07/20/18 09:30 Dose: 500 mg Famotidine (Pepcid) 20 mg PO BID [facility] Last Admin: 07/20/18 09:29 Dose: 20 mg Heparin Sodium (Porcine) (Heparin) 5,000 units SC Q8 [facility]; Protocol Last Admin: 07/09/18 20:10 Dose: Not Given Ceftazidime/Avibactam 1.25 gm/ (Sodium Chloride) 100 mls @ 50 mls/hr IVPB Q8H [facility]; Protocol Stop: 07/23/18 17:16 Last Admin: 07/20/18 11:37 Dose: 50 mls/hr Lactic Acid (Lac-Hydrin 12% Lotion (225 G)) 0 gm EXT BID [facility] Last Admin: 07/20/18 10:00 Dose: 1 applic Levothyroxine Sodium (Synthroid) 25 mcg PO ACB [facility] Last Admin: 07/20/18 09:35 Dose: 25 mcg Lorazepam (Ativan) 0.5 mg PO Q12 PRN; Protocol PRN Reason: Agitation Last Admin: 07/20/18 09:29 Dose: 0.5 mg Metoprolol Tartrate (Lopressor) 25 mg PO BRKDIN [facility] Last Admin: 07/20/18 09:34 Dose: 25 mg Nystatin (Nystop Topical Powder) 0 gm TOP BID [facility] Last Admin: 07/20/18 09:35 Dose: 1 applic Quetiapine Fumarate (Seroquel) 12.5 mg PO BID [facility]; Protocol Last Admin: 07/20/18 09:34 Dose: 12.5 mg Quetiapine Fumarate (Seroquel) 50 mg PO HS [facility]; Protocol Last Admin: 07/19/18 22:24 Dose: 50 mg Thiamine HCl (Vitamin B1 Inj) 100 mg IM DAILY [facility] Last Admin: 07/20/18 11:39 Dose: 100 mg Ziprasidone (Geodon Inj) 10 mg IM Q12 PRN; Protocol PRN Reason: Agitation Last Admin: 07/19/18 23:59 Dose: 10 mg - Labs Labs: 07/20/18 08:45 07/20/18 08:45 PT 16.5 SECONDS (9.4-12.5) H 07/08/18 14:45 INR 1.44 07/08/18 14:45 APTT 32.4 Seconds (25.1-36.5) 07/08/18 14:45 - Constitutional Appears: Chronically Ill - Head Exam Head Exam: NORMAL INSPECTION - Respiratory Exam Respiratory Exam: Decreased Breath Sounds - Cardiovascular Exam Cardiovascular Exam: +S1, +S2 - GI/Abdominal Exam GI & Abdominal Exam: Soft. absent: Tenderness Assessment and Plan - Assessment and Plan (Free Text) Plan: Assessment consider complicated UTI with multidrug-resistant Klebsiella and yeast in this patient with suprapubic Sevilla catheter use - just changed on this admission gram positive cocci in clusters in 2 of 4 blood cx bottles - R/O due to IV line history of right leg infected venous stasis ulcers, with MRSA and Pseudomonas acute CVA with right sided weakness and residual aphasia S/P tPA infusion history of left lower extremity skin and skin structure infection with Klebsiella and MRSA in a patient with chronic venous stasis ulcers with no evidence of abscess or osteomyelitis on MRI, clinically improving Probable CHF exacerbation chronic systolic CHF with EF 25% chronic atrial fibrillation chronic lymphedema with chronic venous stasis COPD HTN history of gastric bypass surgery history of left knee surgery Plan will continue Avycaz day 6 and will continue Diflucan - repeat urine cx showing Pseudomonas and Klebsiella and we are awaiting identification and sensitivities - will need 7-10 days of antibiotics repeat blood cx are negative and will give intermittent IV Vancomycin (Day 5) of 5-7 days - patient has midline but it was placed on this admission only (4 days ago, making it an unlikely source of the bacteremia) will continue to monitor clinically
[2018-07-22] MEDS: Acetylcysteine 20% Inhal Soln (4ml) IH SCH ×4 (01:42→19:51)
[2018-07-22] MEDS: Albuterol-Ipratrop 3 mg / 0.5 (3 ml) UD IH SCH ×3 (07:30→19:51)
[2018-07-22 07:52] LABS: BASO # 0.01 K/mm3 (0.0-2.0); BASO % 0.2 % (0.0-3.0); EOS # 0.1 (0.0-0.7); EOS % 2.5 % (1.5-5.0); GRAN # 3.45 (1.4-6.5); GRAN % 67.1 % (50.0-68.0); HEMOGLOBIN 12.5 g/dL (14.0-18.0); LYMPH # 1.2 (1.2-3.4); MEAN CORPUSCULAR HEMOGLOBIN 31.3 pg (25.0-35.0); MEAN CORPUSCULAR HGB CONC 33.7 g/dl (31.0-37.0); MEAN PLATELET VOLUME 9.5 fl (7.0-11.0); MONO # 0.4 (0.1-0.6); MONO % 7.2 % (1.0-6.0); RBC 3.99 10^6/uL (3.5-6.1); RED CELL DISTRIBUTION WIDTH 14.2 % (11.5-14.5); WHITE BLOOD COUNT 5.1 10^3/uL (4.5-11.0)
[2018-07-22 08:04] LABS: ALBUMIN 3.2 g/dL (3.0-4.8); ALT/SGPT 24 U/L (7-56); AST/SGOT 20 U/L (17-59); BILIRUBIN,DIRECT 0.2 mg/dL (0.0-0.4); BLOOD UREA NITROGEN 11 mg/dL (7-21); CALCIUM 8.7 mg/dL (8.4-10.5); GFR NON-AFRICAN AMERICAN 56
[2018-07-22] MEDS: Nystatin 100,000 Units/gm Topical Pow(15 gm) TOP SCH ×2 (10:36→17:41)
[2018-07-22] MEDS: Ammonium Lactate 12% Lotion (225 g) EXT SCH ×2 (10:36→17:41)
--- NOTE | 2018-07-22 10:49 | CP.PCM.PN ---
<Anant Crandall - Last Filed: 07/22/18 12:51> Subjective - Date & Time of Evaluation Date of Evaluation: 07/22/18 Time of Evaluation: 10:47 - Subjective Subjective: Nephrology Progress Note for Dr. Webb Patient seen and examined at bedside. No acute overnight events. ROS unobtainable 2/2 patient's current mental status. Objective - Vital Signs/Intake and Output Vital Signs (last 24 hours): Temp Pulse Resp BP Pulse Ox 97.6 F 63 18 153/71 H 98 07/22/18 07:00 07/22/18 07:00 07/22/18 07:00 07/22/18 07:00 07/22/18 07:00 Intake and Output: 07/22/18 07/22/18 06:59 18:59 Output Total 300 Balance -300 - Medications Medications: Current Medications Acetaminophen (Tylenol 325mg Tab) 650 mg PO Q6 PRN PRN Reason: TEMP>=99.5F Last Admin: 07/21/18 21:34 Dose: 650 mg Acetaminophen (Tylenol 650 Mg Supp) 650 mg RC Q6H PRN PRN Reason: TEMP>=99.5F Acetylcysteine (Acetylcysteine 20%) 4 ml [facility]H [id number] [facility] Last Admin: 07/22/18 07:30 Dose: 4 ml Albuterol/Ipratropium (Duoneb 3 Mg/0.5 Mg (3 Ml) Ud) 3 ml IH [id number] [facility] Last Admin: 07/22/18 07:30 Dose: 3 ml Apixaban (Eliquis) 2.5 mg PO BID [facility]; Protocol Last Admin: 07/21/18 17:26 Dose: 2.5 mg Aspirin (Aspirin Chewable) 81 mg PO DAILY [facility] Last Admin: 07/21/18 10:27 Dose: 81 mg Atorvastatin Calcium (Lipitor) 40 mg PO HS [facility] Last Admin: 07/21/18 21:43 Dose: 40 mg Cholecalciferol (Vitamin D) 2,000 intlu PO DAILY [facility] Last Admin: 07/21/18 10:47 Dose: 2,000 intlu Diphenhydramine HCl (Benadryl) 25 mg PO Q8H PRN PRN Reason: Itching / Pruritus Last Admin: 07/21/18 20:32 Dose: 25 mg Divalproex Sodium (Depakote Sprinkles) 500 mg PO BID [facility]; Protocol Last Admin: 07/21/18 17:14 Dose: 500 mg Famotidine (Pepcid) 20 mg PO BID [facility] Last Admin: 07/21/18 17:14 Dose: 20 mg Heparin Sodium (Porcine) (Heparin) 5,000 units SC Q8 [facility]; Protocol Last Admin: 07/09/18 20:10 Dose: Not Given Ceftazidime/Avibactam 1.25 gm/ (Sodium Chloride) 100 mls @ 50 mls/hr IVPB Q8H [facility]; Protocol Stop: 07/27/18 08:31 Lactic Acid (Lac-Hydrin 12% Lotion (225 G)) 0 gm EXT BID [facility] Last Admin: 07/21/18 17:27 Dose: 1 applic Levothyroxine Sodium (Synthroid) 25 mcg PO ACB [facility] Last Admin: 07/21/18 10:46 Dose: 25 mcg Lorazepam (Ativan) 0.5 mg PO Q12 PRN; Protocol PRN Reason: Agitation Last Admin: 07/20/18 15:42 Dose: 0.5 mg Losartan Potassium (Cozaar) 25 mg PO DAILY [facility] Metoprolol Tartrate (Lopressor) 25 mg PO BRKDIN [facility] Last Admin: 07/21/18 17:13 Dose: 25 mg Nystatin (Nystop Topical Powder) 0 gm TOP BID [facility] Last Admin: 07/21/18 17:27 Dose: 1 applic Quetiapine Fumarate (Seroquel) 12.5 mg PO BID [facility]; Protocol Last Admin: 07/21/18 17:15 Dose: 12.5 mg Quetiapine Fumarate (Seroquel) 50 mg PO HS [facility]; Protocol Last Admin: 07/21/18 21:43 Dose: 50 mg Thiamine HCl (Vitamin B1 Inj) 100 mg IM DAILY [facility] Last Admin: 07/21/18 10:47 Dose: 100 mg Torsemide (Demadex) 5 mg PO DAILY [facility] Ziprasidone (Geodon Inj) 10 mg IM Q12 PRN; Protocol PRN Reason: Agitation Last Admin: 07/21/18 20:32 Dose: 10 mg - Labs Labs: 07/22/18 07:30 07/22/18 07:30 PT 16.5 SECONDS (9.4-12.5) H 07/08/18 14:45 INR 1.44 10/30/18 14:45 APTT 32.4 Seconds (25.1-36.5) 07/08/18 14:45 - Constitutional Appears: No Acute Distress - Head Exam Head Exam: NORMAL INSPECTION - Eye Exam Eye Exam: Normal appearance Pupil Exam: NORMAL ACCOMODATION - ENT Exam ENT Exam: Normal Exam - Neck Exam Neck Exam: Normal Inspection - Respiratory Exam Respiratory Exam: Clear to Ausculation Bilateral. absent: Rales, Rhonchi, W heezes - Cardiovascular Exam Cardiovascular Exam: REGULAR RHYTHM, RRR - GI/Abdominal Exam GI & Abdominal Exam: Soft. absent: Distended, Guarding, Tenderness, Rebound - Extremities Exam Additional comments: hyperpigmented b/l LE - Back Exam Back Exam: NORMAL INSPECTION - Neurological Exam Neurological Exam: Alert - Skin Skin Exam: Normal Color Assessment and Plan - Assessment and Plan (Free Text) Assessment: 63 yo M with PMH of CHFpEF, chronic atrial fibrillation, chronic lymphedema with chronic venous stasis, COPD, HTN, history of gastric bypass surgery, history of left knee surgery, right leg infected venous stasis ulcers, obstructive sleep apnea, right leg venous stasis ulcers history with previous growth of MRSA and Pseudomonas, history of CVA with residual aphasia admitted to [facility] for malfunctioning suprapubic catheter. Nephrology consulted for acute renal failure. Plan: 1. Acute renal failure 2/2 obstructed suprapubic catheter, resolved - Creatinine WNL - Urology following 2. UTI - UA positive - Urine culture positive for Klebsiella and Pseudomonas - Blood culture positive for gram positive cocci; possible contamination - Abx per ID, renally dosed - ID following 3. HTN - Metoprolol - Holding Losartan, can resume on discharge 4. Chronic a-fib - Cont eliquis, renally dosed 5. CHFpEF - Holding Torsemide due to poor PO intake 6. Hypomagnesmia - Repleted with Mg Sulfate - Cont to monitor and replete as needed Patient discussed in detail with attending. Ismael Crandall, DO PGY2 <Abhay Webb - Last Filed: 07/23/18 08:17> Objective - Vital Signs/Intake and Output Vital Signs (last 24 hours): Temp Pulse Resp BP Pulse Ox 98 F 68 18 154/96 H 97 07/22/18 23:16 07/22/18 23:16 07/22/18 23:16 07/22/18 23:16 07/22/18 23:16 Intake and Output: 07/23/18 07/23/18 06:59 18:59 Intake Total 360 Output Total 1550 Balance -1190 - Medications Medications: Current Medications Acetaminophen (Tylenol 325mg Tab) 650 mg PO Q6 PRN PRN Reason: TEMP>=99.5F Last Admin: 07/22/18 21:52 Dose: 650 mg Acetaminophen (Tylenol 650 Mg Supp) 650 mg RC Q6H PRN PRN Reason: TEMP>=99.5F Acetylcysteine (Acetylcysteine 20%) 4 ml IH [id number] [facility] Last Admin: 07/23/18 07:32 Dose: 4 ml Albuterol/Ipratropium (Duoneb 3 Mg/0.5 Mg (3 Ml) Ud) 3 ml IH [id number] [facility] Last Admin: 07/23/18 07:32 Dose: 3 ml Apixaban (Eliquis) 2.5 mg PO BID [facility]; Protocol Last Admin: 07/22/18 17:30 Dose: 2.5 mg Aspirin (Aspirin Chewable) 81 mg PO DAILY [facility] Last Admin: 07/22/18 01:34 Dose: 81 mg Atorvastatin Calcium (Lipitor) 40 mg PO HS [facility] Last Admin: 07/22/18 21:41 Dose: 40 mg Cholecalciferol (Vitamin D) 2,000 intlu PO DAILY [facility] Last Admin: 07/22/18 11:28 Dose: 2,000 intlu Diphenhydramine HCl (Benadryl) 25 mg PO Q8H PRN PRN Reason: Itching / Pruritus Last Admin: 07/22/18 21:41 Dose: 25 mg Divalproex Sodium (Depakote Sprinkles) 500 mg PO BID [facility]; Protocol Last Admin: 07/22/18 17:28 Dose: 500 mg Famotidine (Pepcid) 20 mg PO BID [facility] Last Admin: 07/22/18 17:30 Dose: 20 mg Heparin Sodium (Porcine) (Heparin) 5,000 units SC Q8 [facility]; Protocol Last Admin: 07/09/18 20:10 Dose: Not Given Ceftazidime/Avibactam 1.25 gm/ (Sodium Chloride) 100 mls @ 50 mls/hr IVPB Q8H [facility]; Protocol Stop: 07/27/18 08:31 Last Admin: 07/22/18 17:35 Dose: 50 mls/hr Lactic Acid (Lac-Hydrin 12% Lotion (225 G)) 0 gm EXT BID [facility] Last Admin: 07/22/18 17:41 Dose: 1 applic Levothyroxine Sodium (Synthroid) 25 mcg PO ACB [facility] Last Admin: 07/22/18 11:27 Dose: 25 mcg Lorazepam (Ativan) 0.5 mg PO Q12 PRN; Protocol PRN Reason: Agitation Last Admin: 07/22/18 12:36 Dose: 0.5 mg Losartan Potassium (Cozaar) 25 mg PO DAILY [facility] Last Admin: 07/22/18 11:22 Dose: 25 mg Metoprolol Tartrate (Lopressor) 25 mg PO BRKDIN [facility] Last Admin: 07/22/18 17:29 Dose: 25 mg Nystatin (Nystop Topical Powder) 0 gm TOP BID [facility] Last Admin: 07/22/18 17:41 Dose: 1 applic Quetiapine Fumarate (Seroquel) 12.5 mg PO BID [facility]; Protocol Last Admin: 07/22/18 17:29 Dose: 12.5 mg Quetiapine Fumarate (Seroquel) 50 mg PO HS [facility]; Protocol Last Admin: 07/22/18 22:01 Dose: 50 mg Thiamine HCl (Vitamin B1 Inj) 100 mg IM DAILY [facility] Last Admin: 07/22/18 11:28 Dose: 100 mg Torsemide (Demadex) 5 mg PO DAILY [facility] Last Admin: 07/22/18 11:23 Dose: 5 mg Ziprasidone (Geodon Inj) 10 mg IM Q12 PRN; Protocol PRN Reason: Agitation Last Admin: 07/22/18 21:41 Dose: 10 mg - Labs Labs: 07/23/18 07:30 07/22/18 07:30 PT 16.5 SECONDS (9.4-12.5) H 07/08/18 14:45 INR 1.44 07/08/18 14:45 APTT 32.4 Seconds (25.1-36.5) 07/08/18 14:45 Attending/Attestation - Attestation I have personally seen and examined this patient.: Yes I have fully participated in the care of the patient.: Yes I have reviewed all pertinent clinical information, including history, physical exam and plan: Yes Notes (Text): Patient seen and examined; I agree with the resident's note as above with the following additions/edits: Patient with htn, s/p CVA, CKD III, pulm htn, admitted again with malfunctioning suprapubic catheter; TROY resolved after suprapubic catheter changed by urology; renal function currently at baseline; stable volume and electrolyte status; we had restarted torsemide 5 mg today due to his pulm htn history (had been on high doses of PO lasix recently at [facility]); however, will hold subsequent doses for now as patient has poor PO intake per nursing staff; HTN uncontrolled, restarting losartan at 25 mg daily (had been on 100 mg recently); continue metoprolol; Overall prognosis remains guarded due to need for in-dwelling urine catheter with recurrent infections expected; recommend to flush every shift;
[2018-07-22] MEDS: Divalproex 125 mg EC Sprinkle Cap PO SCH ×2 (11:24→17:28)
[2018-07-22] MEDS: Levothyroxine 25 MCG TAB PO SCH (11:27)
[2018-07-22] MEDS: Cholecalciferol 1,000 INTLU TAB PO SCH (11:28)
[2018-07-22] MEDS: Thiamine 100 mg/ml Inj IM SCH (11:28)
[2018-07-22] MEDS ORDERED: Magnesium Sulfate 2 gm/50 ml 2 GM/50 ML BAG IVPB ONE ×2 (12:50→17:03)
--- NOTE | 2018-07-22 16:44 | CP.PCM.PN ---
Subjective - Date & Time of Evaluation Date of Evaluation: 07/22/18 Time of Evaluation: 08:30 - Subjective Subjective: No fevers, not in distress. Objective - Vital Signs/Intake and Output Vital Signs (last 24 hours): Temp Pulse Resp BP Pulse Ox 97.6 F 71 20 157/80 H 97 07/21/18 14:00 07/21/18 14:00 07/21/18 14:00 07/21/18 10:45 07/21/18 14:00 Intake and Output: 07/21/18 07/21/18 06:59 18:59 Output Total 700 Balance -700 - Medications Medications: Current Medications Acetaminophen (Tylenol 325mg Tab) 650 mg PO Q6 PRN PRN Reason: TEMP>=99.5F Last Admin: 07/20/18 21:25 Dose: 650 mg Acetaminophen (Tylenol 650 Mg Supp) 650 mg RC Q6H PRN PRN Reason: TEMP>=99.5F Acetylcysteine (Acetylcysteine 20%) 4 ml IH [id number] [facility] Last Admin: 07/21/18 13:28 Dose: 4 ml Albuterol/Ipratropium (Duoneb 3 Mg/0.5 Mg (3 Ml) Ud) 3 ml IH [id number] [facility] Last Admin: 07/21/18 13:28 Dose: 3 ml Apixaban (Eliquis) 2.5 mg PO BID [facility]; Protocol Last Admin: 07/21/18 10:44 Dose: 2.5 mg Aspirin (Aspirin Chewable) 81 mg PO DAILY [facility] Last Admin: 07/21/18 10:27 Dose: 81 mg Atorvastatin Calcium (Lipitor) 40 mg PO HS [facility] Last Admin: 07/20/18 21:24 Dose: 40 mg Cholecalciferol (Vitamin D) 2,000 intlu PO DAILY [facility] Last Admin: 07/21/18 10:47 Dose: 2,000 intlu Diphenhydramine HCl (Benadryl) 25 mg PO Q8H PRN PRN Reason: Itching / Pruritus Last Admin: 07/20/18 21:24 Dose: 25 mg Divalproex Sodium (Depakote Sprinkles) 500 mg PO BID [facility]; Protocol Last Admin: 07/21/18 10:44 Dose: 500 mg Famotidine (Pepcid) 20 mg PO BID [facility] Last Admin: 07/21/18 10:45 Dose: 20 mg Heparin Sodium (Porcine) (Heparin) 5,000 units SC Q8 [facility]; Protocol Last Admin: 07/09/18 20:10 Dose: Not Given Lactic Acid (Lac-Hydrin 12% Lotion (225 G)) 0 gm EXT BID [facility] Last Admin: 07/21/18 10:58 Dose: 1 applic Levothyroxine Sodium (Synthroid) 25 mcg PO ACB [facility] Last Admin: 07/21/18 10:46 Dose: 25 mcg Lorazepam (Ativan) 0.5 mg PO Q12 PRN; Protocol PRN Reason: Agitation Last Admin: 07/20/18 15:42 Dose: 0.5 mg Metoprolol Tartrate (Lopressor) 25 mg PO BRKDIN [facility] Last Admin: 07/21/18 10:45 Dose: 25 mg Nystatin (Nystop Topical Powder) 0 gm TOP BID [facility] Last Admin: 07/21/18 10:58 Dose: 1 applic Quetiapine Fumarate (Seroquel) 12.5 mg PO BID [facility]; Protocol Last Admin: 07/21/18 10:46 Dose: 12.5 mg Quetiapine Fumarate (Seroquel) 50 mg PO HS [facility]; Protocol Last Admin: 07/20/18 22:00 Dose: Not Given Thiamine HCl (Vitamin B1 Inj) 100 mg IM DAILY [facility] Last Admin: 07/21/18 10:47 Dose: 100 mg Ziprasidone (Geodon Inj) 10 mg IM Q12 PRN; Protocol PRN Reason: Agitation Last Admin: 07/20/18 21:25 Dose: 10 mg - Labs Labs: 07/20/18 08:45 07/20/18 08:45 PT 16.5 SECONDS (9.4-12.5) H 07/08/18 14:45 INR 1.44 07/08/18 14:45 APTT 32.4 Seconds (25.1-36.5) 07/08/18 14:45 - Constitutional Appears: Chronically Ill - Head Exam Head Exam: NORMAL INSPECTION - Neck Exam Neck Exam: absent: Meningismus - Respiratory Exam Respiratory Exam: Decreased Breath Sounds - Cardiovascular Exam Cardiovascular Exam: +S1, +S2 - GI/Abdominal Exam GI & Abdominal Exam: Soft. absent: Tenderness Assessment and Plan - Assessment and Plan (Free Text) Plan: Assessment consider complicated UTI with multidrug-resistant Klebsiella and yeast in this patient with suprapubic Sevilla catheter use - just changed on this admission gram positive cocci in clusters in 2 of 4 blood cx bottles - R/O due to IV line history of right leg infected venous stasis ulcers, with MRSA and Pseudomonas acute CVA with right sided weakness and residual aphasia S/P tPA infusion history of left lower extremity skin and skin structure infection with Klebsiella and MRSA in a patient with chronic venous stasis ulcers with no evidence of abscess or osteomyelitis on MRI, clinically improving Probable CHF exacerbation chronic systolic CHF with EF 25% chronic atrial fibrillation chronic lymphedema with chronic venous stasis COPD HTN history of gastric bypass surgery history of left knee surgery Plan will continue Avycaz day 7 and will continue Diflucan - repeat urine cx showing Pseudomonas and Klebsiella and we are awaiting identification and sensitivities - will need 7-10 days of antibiotics repeat blood cx are negative and will give intermittent IV Vancomycin (Day 5) of 5-7 days - patient has midline but it was placed on this admission only (5 days ago, making it an unlikely source of the bacteremia) will continue to monitor clinically
--- NOTE | 2018-07-22 19:37 | PN ---
DATE: 07/22/2018 SUBJECTIVE: The patient is seen in Room 576, Bed 1. Overnight nurse's notes were reviewed. The patient has been having episodes of yelling, screaming, attempted to get out of the bed hitting staff and attempted to hit the nurses and the caregivers. The patient also had some problem with the right upper extremity midline, which was attempted to be flushed. The patient's cath flow was found to be not appropriate for the midline flush. The patient attempted to be getting out of the bed, climbing out of the bed multiple times, the patient attempting to hit the staff. The patient was combative, screaming in the last 12-24 hours. The patient having periods of agitation, cursing and yelling. The patient was unable to be directed. The patient also tried to hit his head with his hand. PHYSICAL EXAMINATION: GENERAL: The patient is seen lying in the bed. VITAL SIGNS: T-max 97.6 to 98.5, pulse 63 to 68, blood pressure 157/71, respirations 20, O2 sat 98%. INTAKE/OUTPUT: Could not be documented correctly. HEENT: The patient's head examination normocephalic, atraumatic. HEENT examination shows pinkish pale conjunctivae. Anicteric sclerae. No oropharyngeal lesion. NECK: No neck rigidity. CHEST: Kyphosis. LUNGS: No audible rales, crackles or wheezing. CARDIOVASCULAR: S1, S2, irregular rhythm. Positive systolic murmur, right second intercostal space, left second intercostal space. ABDOMEN: Obese. Positive suprapubic cystostomy draining significant amount of urine. GENITALIA: Male. RECTAL: Deferred. EXTREMITIES: Chronic skin changes of the lower extremities. No pitting edema. NEUROLOGIC: The patient is alert, awake, responsive with positive expressive aphasia. Positive right-sided weakness. Gait examination not tested. DIAGNOSTICS: On 07/22/2018, WBC 5.1, hemoglobin and hematocrit 12.5 and 37.1, platelets 120,000. Sodium 143, potassium 3.7, chloride 107, CO2 of 27, anion gap 12, BUN 11, creatinine 1.3, GFR greater than 60, glucose 90, calcium 8.7, magnesium 1.6, phosphorus 2.9. LFTs are normal. Repeat blood cultures are negative. The patient was seen by Infectious Disease. Recommended to continue with the IV cath, IV cath day 7 for a total of 10 days. Continue Diflucan. Infectious Disease recommended total 7-10 days of antibiotics. Infectious Disease also recommended IV intermittent vancomycin day 5 of days 5 to 7 days. IMPRESSION: 1. Persistent aggressive combative behavior with high risk for fall. 2. 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 3. Hypertension. 4. Normocytic anemia. 5. Thrombocytopenia. 6. Anticoagulation-dependent atrial fibrillation. 7. Hypomagnesemia. 8. Acute kidney injury (resolved). 9. Gait dysfunction. 10. Deconditioning. 11. Klebsiella pneumoniae. 12. Multidrug-resistant Klebsiella pneumoniae and Pseudomonas aeruginosa urinary tract infection. 13. Funguria. 14. Avoiding dysfunction. 15. Gait dysfunction and bedridden status, questionable and possible functional quadriplegia. 16. Cerebral infarct with right-sided hemiparesis. 17. Status post revision of cystostomy. 18. Bilateral lower extremity lymphedema with venous stasis of the lower extremities. 19. Status post Clostridium difficile associated diarrhea and pseudomembranous colitis (resolved). 20. History of constipation. 21. 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 22. Expressive aphasia, dysarthria and apraxia. 23. Resolving right-sided weakness. PLAN: At this time, the patient is to be continued on the therapeutic intervention as per MAR of today. The patient will be continued on the IV antibiotics as per the Infectious Disease recommendation. The patient will be continued on psychotropic medications as per Psychiatry recommendation. At present, the patient will complete the acute IV antibiotic therapy and after that the patient will be referred for long-term placement and mcc placement. The patient's has been updated. I have met with the patient's yesterday. I have updated the patient's about the patient's condition, diagnosis, test results. Recommendations by all the physicians involved in the care of the patient have been updated to the patient's at length and all questions and concerns answered to her satisfaction. Dictated and electronically signed, not read. Rashad Brown MD [facility] # [id number]
[2018-07-23] MEDS: Acetylcysteine 20% Inhal Soln (4ml) IH SCH ×5 (01:31→20:19)
[2018-07-23] MEDS: Albuterol-Ipratrop 3 mg / 0.5 (3 ml) UD IH SCH ×5 (01:31→20:21)
[2018-07-23 07:59] LABS: BASO # 0.01 K/mm3 (0.0-2.0); BASO % 0.2 % (0.0-3.0); EOS # 0.2 (0.0-0.7); EOS % 2.9 % (1.5-5.0); GRAN # 3.47 (1.4-6.5); GRAN % 60.1 % (50.0-68.0); HEMOGLOBIN 13.1 g/dL (14.0-18.0); LYMPH # 1.7 (1.2-3.4); LYMPH % 29.3 % (22.0-35.0); MEAN CELL VOLUME 93.3 fl (80.0-105.0); MEAN CORPUSCULAR HEMOGLOBIN 31.4 pg (25.0-35.0); MEAN CORPUSCULAR HGB CONC 33.7 g/dl (31.0-37.0); MONO # 0.4 (0.1-0.6); MONO % 7.5 % (1.0-6.0); RBC 4.17 10^6/uL (3.5-6.1); RED CELL DISTRIBUTION WIDTH 14.3 % (11.5-14.5); WHITE BLOOD COUNT 5.8 10^3/uL (4.5-11.0)
[2018-07-23 08:43] LABS: ALB/GLOB RATIO 1.1 (1.1-1.8); ALBUMIN 3.4 g/dL (3.0-4.8); BILIRUBIN,DIRECT 0.2 mg/dL (0.0-0.4); CALCIUM 8.8 mg/dL (8.4-10.5)
--- NOTE | 2018-07-23 11:27 | PN ---
DATE: 07/23/2018 SUBJECTIVE: The patient is in room 576 bed one. The patient is lying in the bed. Overnight nurse's notes were reviewed. The patient yesterday in the later part of the day again became combative, agitated, abusive and attempting to climb out of the bed and was combative towards the nurses and the staff and attempted to climb out of the bed. The patient required extra dose of Ativan and Geodon to control his behavior yesterday. PHYSICAL EXAMINATION: VITAL SIGNS: T-max 98 degrees Fahrenheit, , respirations 18, O2 sat 97%. Heart rate 68, blood pressure in the last 12 to 24 hours 161/111, 149/99. 154/96. HEENT: The patient's head examination normocephalic, atraumatic. HEENT examination shows pinkish pale conjunctivae. Anicteric sclerae. No oropharyngeal lesion. No neck rigidity. Positive expressive aphasia and apraxia and dysarthria. Rex conjunctivae. Anicteric sclerae. No oropharyngeal lesion. CHEST: Examination kyphosis and examination shows no rales, crackles or wheezing. CARDIOVASCULAR: S1, S2, irregular rhythm. Positive systolic murmur left sternal border, right second intercostal space, left second intercostal space. ABDOMEN: Soft, obese. Positive bowel sound, positive suprapubic cystostomy connected to the leg bag. GENITALIA: Male. RECTAL: Deferred. EXTREMITIES: Shows chronic skin changes of the lower extremity. NEUROLOGIC: The patient is awake, responsive, arousable. Positive right-sided weakness. Gait examination is not tested. Body mass index is elevated. PSYCHIATRIC: Positive for episodes of agitation, combativeness, yelling, screaming. DIAGNOSTICS: In 07/23, WBC 5.8, hemoglobin/hematocrit 13.1, 38.9, platelets 124,000 to 150,000. Sodium 142, potassium 4.0, chloride 106, CO2 27, BUN 11, creatinine 1.5, glucose 91, calcium 8.8, phosphorus 4.0, magnesium 0.3. LFTs are within normal limit. IMPRESSION: 1. Severe behavioral disorders with persistent episode of agitation, combativeness and aggression with high risk for fall and attempted to climb out of the bed. 2. Gait dysfunction. 3. Deconditioning. 4. Suprapubic cystostomy malfunction and dysfunction. 5. Status post suprapubic cystostomy revision. 6. Acute renal failure and acute kidney injury (resolved). 7. Multidrug resistant Klebsiella pneumoniae and Pseudomonas aeruginosa urinary tract infection with funguria and yeast urinary tract infection. 8. Staphylococcus coagulase-negative bacteremia versus sepsis versus contamination. 9. Expressive aphasia, dysarthria and apraxia. 10. History of cerebral infarct with right-sided hemiparesis. 11. Thrombocytopenia. 12. Anticoagulation requiring atrial fibrillation. 13. Morbid obesity. 14. Status post gastric sleeve surgery. 15. Cholelithiasis. 16. Clostridium difficile associated diarrhea and pseudomembranous colitis. 17. Bilateral lower extremity lymphedema and chronic venous stasis changes of the lower extremities. 18. History of constipation. 19. Hypothyroidism. 20. Hyperlipidemia. 21. Hypertension. 22. Status post acute kidney injury. 23. Voiding dysfunction. 24. Questionable and possible neurogenic bladder. 25. Behavioral disorder, probably secondary to cerebral infarct. PLAN: Plan at this time, the patient is to be continuously followed by Infectious Disease and Medicine. The patient is currently on intravenous Avycaz probably 04/18. The patient is on IV Diflucan. The patient is in on intermittent IV vancomycin as per Infectious Disease. The patient is to be continued on GI, DVT prophylaxis. The patient is to be continued on all the medications as per the MAR. The patient's right upper extremity midline is still having issues with flushing and blood return which will be evaluated today by the vascular lab. At present, the patient will be continued on above therapeutic intervention. The patient will be his awaiting for a snf long-term placement after the patient completes the recommended duration of intravenous antibiotics by Infectious Disease. The patient will need to be cleared by all the subspecialties including Infectious Disease for discharge to long-term placement and snf placement when accepted. The patient's overall prognosis is guarded to poor. The patient is to continue on the present medications as per the MAR of today which was reviewed. The patient's overall prognosis is guarded to poor. Dictated and electronically signed, not read. Rashad Brown MD [facility] # [id number]
--- NOTE | 2018-07-23 12:11 | CP.PCM.PN ---
Subjective - Date & Time of Evaluation Date of Evaluation: 07/23/18 Time of Evaluation: 12:08 - Subjective Subjective: Nephrology Progress Note for Dr. Webb Patient seen and examined at bedside. No acute overnight events. ROS unobtainable due to patient's current mental status. Objective - Vital Signs/Intake and Output Vital Signs (last 24 hours): Temp Pulse Resp BP Pulse Ox 98 F 68 18 154/96 H 97 07/22/18 23:16 07/22/18 23:16 07/22/18 23:16 07/22/18 23:16 07/22/18 23:16 Intake and Output: 07/23/18 07/23/18 06:59 18:59 Intake Total 360 Output Total 1550 Balance -1190 - Medications Medications: Current Medications Acetaminophen (Tylenol 325mg Tab) 650 mg PO Q6 PRN PRN Reason: TEMP>=99.5F Last Admin: 07/22/18 21:52 Dose: 650 mg Acetaminophen (Tylenol 650 Mg Supp) 650 mg RC Q6H PRN PRN Reason: TEMP>=99.5F Acetylcysteine (Acetylcysteine 20%) 4 ml IH [id number] [facility] Last Admin: 07/23/18 07:32 Dose: 4 ml Albuterol/Ipratropium (Duoneb 3 Mg/0.5 Mg (3 Ml) Ud) 3 ml IH [id number] [facility] Last Admin: 07/23/18 07:32 Dose: 3 ml Apixaban (Eliquis) 2.5 mg PO BID [facility]; Protocol Last Admin: 07/22/18 17:30 Dose: 2.5 mg Aspirin (Aspirin Chewable) 81 mg PO DAILY [facility] Last Admin: 07/22/18 01:34 Dose: 81 mg Atorvastatin Calcium (Lipitor) 40 mg PO HS [facility] Last Admin: 07/22/18 21:41 Dose: 40 mg Cholecalciferol (Vitamin D) 2,000 intlu PO DAILY [facility] Last Admin: 07/22/18 11:28 Dose: 2,000 intlu Diphenhydramine HCl (Benadryl) 25 mg PO Q8H PRN PRN Reason: Itching / Pruritus Last Admin: 07/22/18 21:41 Dose: 25 mg Divalproex Sodium (Depakote Sprinkles) 500 mg PO BID [facility]; Protocol Last Admin: 07/22/18 17:28 Dose: 500 mg Famotidine (Pepcid) 20 mg PO BID [facility] Last Admin: 07/22/18 17:30 Dose: 20 mg Heparin Sodium (Porcine) (Heparin) 5,000 units SC Q8 [facility]; Protocol Last Admin: 07/09/18 20:10 Dose: Not Given Ceftazidime/Avibactam 1.25 gm/ (Sodium Chloride) 100 mls @ 50 mls/hr IVPB Q8H [facility]; Protocol Stop: 07/27/18 08:31 Last Admin: 07/22/18 17:35 Dose: 50 mls/hr Lactic Acid (Lac-Hydrin 12% Lotion (225 G)) 0 gm EXT BID [facility] Last Admin: 07/22/18 17:41 Dose: 1 applic Levothyroxine Sodium (Synthroid) 25 mcg PO ACB [facility] Last Admin: 07/22/18 11:27 Dose: 25 mcg Lorazepam (Ativan) 0.5 mg PO Q12 PRN; Protocol PRN Reason: Agitation Last Admin: 07/22/18 12:36 Dose: 0.5 mg Losartan Potassium (Cozaar) 25 mg PO DAILY [facility] Last Admin: 07/22/18 11:22 Dose: 25 mg Metoprolol Tartrate (Lopressor) 25 mg PO BRKDIN [facility] Last Admin: 07/22/18 17:29 Dose: 25 mg Nystatin (Nystop Topical Powder) 0 gm TOP BID [facility] Last Admin: 07/22/18 17:41 Dose: 1 applic Quetiapine Fumarate (Seroquel) 12.5 mg PO BID [facility]; Protocol Last Admin: 07/22/18 17:29 Dose: 12.5 mg Quetiapine Fumarate (Seroquel) 50 mg PO HS [facility]; Protocol Last Admin: 07/22/18 22:01 Dose: 50 mg Thiamine HCl (Vitamin B1 Inj) 100 mg IM DAILY [facility] Last Admin: 07/22/18 11:28 Dose: 100 mg Torsemide (Demadex) 5 mg PO DAILY [facility] Last Admin: 07/22/18 11:23 Dose: 5 mg Ziprasidone (Geodon Inj) 10 mg IM Q12 PRN; Protocol PRN Reason: Agitation Last Admin: 07/22/18 21:41 Dose: 10 mg - Labs Labs: 07/23/18 07:30 07/23/18 05:00 PT 16.5 SECONDS (9.4-12.5) H 07/08/18 14:45 INR 1.44 07/08/18 14:45 APTT 32.4 Seconds (25.1-36.5) 07/08/18 14:45 - Constitutional Appears: No Acute Distress - Head Exam Head Exam: NORMAL INSPECTION - Eye Exam Eye Exam: Normal appearance - ENT Exam ENT Exam: Normal Exam - Respiratory Exam Respiratory Exam: Clear to Ausculation Bilateral. absent: Rales, Rhonchi, Wheezes - Cardiovascular Exam Cardiovascular Exam: RRR. absent: Gallop, Rubs, Murmur - GI/Abdominal Exam GI & Abdominal Exam: Soft. absent: Distended, Guarding, Tenderness, Rebound - Extremities Exam Extremities Exam: Normal Inspection - Back Exam Back Exam: NORMAL INSPECTION - Neurological Exam Neurological Exam: Alert, Awake - Skin Skin Exam: Normal Color Assessment and Plan - Assessment and Plan (Free Text) Assessment: 63 yo M with PMH of CHFpEF, chronic atrial fibrillation, chronic lymphedema with chronic venous stasis, COPD, HTN, history of gastric bypass surgery, history of left knee surgery, right leg infected venous stasis ulcers, obstructive sleep apnea, right leg venous stasis ulcers history with previous growth of MRSA and Pseudomonas, history of CVA with residual aphasia admitted to [facility] for malfunctioning suprapubic catheter. Nephrology consulted for acute renal failure, which has resolved. Plan: 1. Acute renal failure 2/2 obstructed suprapubic catheter, resolved - Creatinine WNL - Urology following 2. UTI - UA positive - Urine culture positive for Klebsiella and Pseudomonas - Blood culture positive for gram positive cocci; possible contamination - Abx per ID, renally dosed - ID following 3. HTN - Cont Metoprolol and Losartan 4. Chronic a-fib - Cont eliquis, renally dosed 5. CHFpEF - Holding Torsemide due to poor PO intake 6. Hypomagnesmia, resolved - Cont to monitor and replete as needed Patient discussed in detail with attending. Ismael Crandall, DO PGY2
[2018-07-23] MEDS: Nystatin 100,000 Units/gm Topical Pow(15 gm) TOP SCH (13:20)
[2018-07-23] MEDS: Levothyroxine 25 MCG TAB PO SCH (13:20)
[2018-07-23] MEDS: Ammonium Lactate 12% Lotion (225 g) EXT SCH (13:20)
[2018-07-23] MEDS: Cholecalciferol 1,000 INTLU TAB PO SCH (13:20)
--- NOTE | 2018-07-23 14:43 | CP.PCM.PN ---
Subjective - Date & Time of Evaluation Date of Evaluation: 07/23/18 Time of Evaluation: 08:25 - Subjective Subjective: No fevers, not in distress. Objective - Vital Signs/Intake and Output Vital Signs (last 24 hours): Temp Pulse Resp BP Pulse Ox 98.5 F 82 20 153/71 H 98 07/22/18 15:09 07/22/18 15:09 07/22/18 15:09 07/22/18 11:25 07/22/18 15:09 Intake and Output: 07/22/18 07/22/18 06:59 18:59 Output Total 300 Balance -300 - Medications Medications: Current Medications Acetaminophen (Tylenol 325mg Tab) 650 mg PO Q6 PRN PRN Reason: TEMP>=99.5F Last Admin: 07/21/18 21:34 Dose: 650 mg Acetaminophen (Tylenol 650 Mg Supp) 650 mg RC Q6H PRN PRN Reason: TEMP>=99.5F Acetylcysteine (Acetylcysteine 20%) 4 ml IH [id number] [facility] Last Admin: 07/22/18 13:50 Dose: 4 ml Albuterol/Ipratropium (Duoneb 3 Mg/0.5 Mg (3 Ml) Ud) 3 ml IH [id number] [facility] Last Admin: 07/22/18 13:50 Dose: 3 ml Apixaban (Eliquis) 2.5 mg PO BID [facility]; Protocol Last Admin: 07/22/18 11:25 Dose: 2.5 mg Aspirin (Aspirin Chewable) 81 mg PO DAILY [facility] Last Admin: 07/21/18 10:27 Dose: 81 mg Atorvastatin Calcium (Lipitor) 40 mg PO HS [facility] Last Admin: 07/21/18 21:43 Dose: 40 mg Cholecalciferol (Vitamin D) 2,000 intlu PO DAILY [facility] Last Admin: 07/22/18 11:28 Dose: 2,000 intlu Diphenhydramine HCl (Benadryl) 25 mg PO Q8H PRN PRN Reason: Itching / Pruritus Last Admin: 07/21/18 20:32 Dose: 25 mg Divalproex Sodium (Depakote Sprinkles) 500 mg PO BID [facility]; Protocol Last Admin: 07/22/18 11:24 Dose: 500 mg Famotidine (Pepcid) 20 mg PO BID [facility] Last Admin: 07/22/18 11:26 Dose: 20 mg Heparin Sodium (Porcine) (Heparin) 5,000 units SC Q8 [facility]; Protocol Last Admin: 07/09/18 20:10 Dose: Not Given Ceftazidime/Avibactam 1.25 gm/ (Sodium Chloride) 100 mls @ 50 mls/hr IVPB Q8H [facility]; Protocol Stop: 07/27/18 08:31 Last Admin: 07/22/18 11:15 Dose: 50 mls/hr Lactic Acid (Lac-Hydrin 12% Lotion (225 G)) 0 gm EXT BID [facility] Last Admin: 07/21/18 17:27 Dose: 1 applic Levothyroxine Sodium (Synthroid) 25 mcg PO ACB [facility] Last Admin: 07/22/18 11:27 Dose: 25 mcg Lorazepam (Ativan) 0.5 mg PO Q12 PRN; Protocol PRN Reason: Agitation Last Admin: 07/22/18 12:36 Dose: 0.5 mg Losartan Potassium (Cozaar) 25 mg PO DAILY [facility] Last Admin: 07/22/18 11:22 Dose: 25 mg Metoprolol Tartrate (Lopressor) 25 mg PO BRKDIN [facility] Last Admin: 07/22/18 11:25 Dose: 25 mg Nystatin (Nystop Topical Powder) 0 gm TOP BID [facility] Last Admin: 07/21/18 17:27 Dose: 1 applic Quetiapine Fumarate (Seroquel) 12.5 mg PO BID [facility]; Protocol Last Admin: 07/22/18 11:27 Dose: 12.5 mg Quetiapine Fumarate (Seroquel) 50 mg PO HS [facility]; Protocol Last Admin: 07/21/18 21:43 Dose: 50 mg Thiamine HCl (Vitamin B1 Inj) 100 mg IM DAILY [facility] Last Admin: 07/22/18 11:28 Dose: 100 mg Torsemide (Demadex) 5 mg PO DAILY [facility] Last Admin: 07/22/18 11:23 Dose: 5 mg Ziprasidone (Geodon Inj) 10 mg IM Q12 PRN; Protocol PRN Reason: Agitation Last Admin: 07/22/18 12:36 Dose: 10 mg - Labs Labs: 07/22/18 07:30 07/22/18 07:30 PT 16.5 SECONDS (9.4-12.5) H 10/30/18 14:45 INR 1.44 07/08/18 14:45 APTT 32.4 Seconds (25.1-36.5) 07/08/18 14:45 - Constitutional Appears: Chronically Ill - Head Exam Head Exam: NORMAL INSPECTION - Respiratory Exam Respiratory Exam: Decreased Breath Sounds - Cardiovascular Exam Cardiovascular Exam: +S1, +S2 - GI/Abdominal Exam GI & Abdominal Exam: Soft. absent: Tenderness Assessment and Plan - Assessment and Plan (Free Text) Plan: Assessment consider complicated UTI with multidrug-resistant Klebsiella and Pseudomonas in this patient with suprapubic Sevilla catheter use - just changed on this admission gram positive cocci in clusters in 2 of 4 blood cx bottles - consider contam ination history of right leg infected venous stasis ulcers, with MRSA and Pseudomonas acute CVA with right sided weakness and residual aphasia S/P tPA infusion history of left lower extremity skin and skin structure infection with Klebsiella and MRSA in a patient with chronic venous stasis ulcers with no evidence of abscess or osteomyelitis on MRI, clinically improving Probable CHF exacerbation chronic systolic CHF with EF 25% chronic atrial fibrillation chronic lymphedema with chronic venous stasis COPD HTN history of gastric bypass surgery history of left knee surgery Plan will continue Avycaz day 8 to complete 7-10 days of antibiotics repeat blood cx are negative - patient has midline but it was placed on this admission only (making it an unlikely source of the bacteria in the blood) will continue to monitor clinically
[2018-07-23] MEDS: Thiamine 100 mg/ml Inj IM SCH (17:34)
[2018-07-23] MEDS: Divalproex 125 mg EC Sprinkle Cap PO SCH (17:44)
[2018-07-24] MEDS: Albuterol-Ipratrop 3 mg / 0.5 (3 ml) UD IH SCH ×4 (02:07→19:58)
[2018-07-24] MEDS: Acetylcysteine 20% Inhal Soln (4ml) IH SCH ×3 (02:07→13:34)
[2018-07-24 07:57] LABS: BASO # 0.02 K/mm3 (0.0-2.0); BASO % 0.4 % (0.0-3.0); EOS # 0.2 (0.0-0.7); EOS % 3.4 % (1.5-5.0); GRAN # 3.12 (1.4-6.5); HEMOGLOBIN 12.5 g/dL (14.0-18.0); LYMPH # 1.5 (1.2-3.4); LYMPH % 28.7 % (22.0-35.0); MEAN CELL VOLUME 94.1 fl (80.0-105.0); MEAN CORPUSCULAR HEMOGLOBIN 30.6 pg (25.0-35.0); MEAN CORPUSCULAR HGB CONC 32.6 g/dl (31.0-37.0); MONO # 0.5 (0.1-0.6); MONO % 9.5 % (1.0-6.0); RBC 4.08 10^6/uL (3.5-6.1); RED CELL DISTRIBUTION WIDTH 14.4 % (11.5-14.5); WHITE BLOOD COUNT 5.4 10^3/uL (4.5-11.0)
[2018-07-24 08:12] LABS: ALBUMIN 3.2 g/dL (3.0-4.8); BILIRUBIN,DIRECT 0.2 mg/dL (0.0-0.4); CALCIUM 8.5 mg/dL (8.4-10.5)
[2018-07-24] MEDS: Thiamine 100 mg/ml Inj IM SCH (09:21)
--- NOTE | 2018-07-24 10:49 | PN ---
DATE: 07/24/2018 SUBJECTIVE: The patient was in room 576, bed 1. The patient is lying in the bed. Overnight nurse's notes were reviewed. The patient had episodes of behavioral disturbances and had episodes of multiple attempts to climb out of the bed. The patient was also noticed by the nurses to be screaming and yelling intermittently. The patient required sedation with the medications as per the MAR and recommended by Psychiatry. Overnight nurse's notes were reviewed. PHYSICAL EXAMINATION: VITAL SIGNS: T-max 97.8, pulse 88, blood pressure 142/86, respiration 20, O2 sat 98%. HEAD: Normocephalic, atraumatic. HEENT examination shows pink conjunctivae. Anicteric sclerae. Positive expressive aphasia, dysarthria, apraxia. No neck rigidity. CHEST: Kyphosis. LUNGS: Shows no audible crackle, rales or wheezing. CARDIOVASCULAR: S1, S2, irregular rhythm. Positive systolic murmur in left sternal border, right second intercostal space, left second intercostal space. ABDOMEN: Obese. Positive bowel sounds. Positive suprapubic cystostomy. GENITALIA: Male. RECTAL: Deferred. EXTREMITIES: Shows chronic skin changes of the lower extremity. No pitting edema. MUSCULOSKELETAL: Shows an elevated body mass index of greater than 42. NEUROLOGIC: The patient is alert, awake, responsive. Positive expressive aphasia, dysarthria. Positive right-sided weakness noted. DIAGNOSTICS: WBC 5.4, hemoglobin/hematocrit 12.5/38.4, platelet 140,000. Sodium 140, potassium 4.1, chloride 108, CO2 of 27, BUN 13, creatinine 1.5, glucose 89, calcium 8.5, phosphorus 3.7, magnesium 2.1. LFTs are within normal limit. IMPRESSION AND PLAN: 1. Persistent behavioral disorder with episodes of agitation, combativeness, screaming and yelling. 2. High risk for fall with attempting to be climb out of the bed. 3. Gait dysfunction. 4. Deconditioning. 5. Questionable functional quadriplegia secondary to chronic bedridden status and gait dysfunction. 6. Longstanding history of poor compliance, noncompliance. 7. Hypertension. 8. History of cerebral infarct with right-sided hemiparesis. 9. Expressive aphasia, dysarthria, apraxia. 10. Anticoagulation-dependent atrial fibrillation. 11. Normocytic anemia. 12. Thrombocytopenia. 13. Acute kidney injury in (resolved). 14. Voiding dysfunction with urinary retention. 15. Status post suprapubic cystostomy malfunction and dysfunction. 16. Status post suprapubic cystostomy revision and replacement. 17. History of bilateral lower extremity lymphedema and venous stasis of the lower extremity. 18. Possible vascular dementia with delirium. 19. Behavioral disorder. 20. Hyperlipidemia. 21. History of Clostridium-difficile associated diarrhea and pseudomembranous colitis, status post treatment and (resolved). 22. History of constipation. 23. Degenerative joint disease of the spine, hips and knees. 24. Hypothyroidism. 25. Dilated cardiomyopathy. 26. History of congestive heart failure. 27. Multidrug resistant Klebsiella pneumoniae and Pseudomonas aeruginosa urinary tract infection. 28. Funguria. 29. Yeast urinary tract infection. 30. Coagulase-negative Staphylococcus aureus bacteremia sepsis versus contamination. PLAN: At this time, the patient is to be continued on therapeutic intervention as per the MAR. The patient at present is on IV Avycaz as per the Infectious Disease recommendation to complete 10 days of intravenous antibiotic. The patient has been seen by Nephrology, the patient is being followed by Urology, Psychiatry, Neurology. At present, the patient will be continued on anticoagulation with Eliquis 2.5 twice a day. The patient will be continued on GI, DVT prophylaxis. The patient will be continued on IV antibiotics. The patient will be continued on all the medications as per the MAR of today.. DISPOSITION: At present is long-term placement, detention placement after completion of the IV antibiotics. Dictated and electronically signed, not read. Rashad Brown MD [facility]
--- NOTE | 2018-07-24 13:32 | PCM.URO ---
Urology Progress Note - Objective Lab Studies: Reviewed (gu plans:muniz //spt to sd and irrigation and awaiting placement) Lab Results Last 24 Hours: Laboratory Results - last 24 hr 07/24/18 07/24/18 07:30 07:30 WBC 5.4 RBC 4.08 Hgb 12.5 L Hct 38.4 L MCV 94.1 MCH 30.6 MCHC 32.6 RDW 14.4 Plt Count 110 L Manual Plt Count 140 MPV 9.0 Gran % 58.0 Lymph % (Auto) 28.7 [place] % (Auto) 9.5 H Eos % (Auto) 3.4 Baso % (Auto) 0.4 Gran # 3.12 Lymph # (Auto) 1.5 [place] # (Auto) 0.5 Eos # (Auto) 0.2 Baso # (Auto) 0.02 Sodium 141 Potassium 4.1 Chloride 108 H Carbon Dioxide 27 Anion Gap 10 BUN 13 Creatinine 1.5 Est GFR ( Amer) 58 Est GFR (Non-Af Amer) 48 Random Glucose 89 Calcium 8.5 Phosphorus 3.7 Magnesium 2.1 Total Bilirubin 1.2 Direct Bilirubin 0.2 AST 19 ALT 27 Alkaline Phosphatase 71 Total Protein 6.4 Albumin 3.2 Globulin 3.1 Albumin/Globulin Ratio 1.0 L Intake & Output: Intake & Output 07/23/18 07/24/18 07/24/18 18:59 06:59 18:59 Output Total 200 Balance -200 Output: Urine 200 Suprapubic 200 Other: # Bowel Movements 0 Vital Signs: Vital Signs - 24 hr 07/23/18 07/23/18 07/24/18 14:00 23:00 06:00 Temperature 98.8 F 97.8 F 98 F Pulse Rate 67 84 89 Respiratory 20 18 20 Rate Blood Pressure 146/84 142/86 123/66 O2 Sat by Pulse 95 98 98 Oximetry 07/24/18 07/24/18 09:24 09:25 Temperature Pulse Rate 60 60 Respiratory Rate Blood Pressure 145/90 145/90 O2 Sat by Pulse Oximetry
--- NOTE | 2018-07-24 22:20 | PN ---
DATE: 07/24/2018 SUBJECTIVE: The patient is seen in bed, in no acute distress, and nontoxic. OBJECTIVE: VITAL SIGNS: Temperature is 98, blood pressure is 170/90, and respiratory rate 20. HEENT: Unremarkable. NECK: Supple. LUNGS: Decrease breath sounds. HEART: Normal S1 and S2. ABDOMEN: Soft. LABORATORY DATA: Reveals white count of 5.4, hemoglobin of 12, and platelets of 110,000. Chemistry reveals BUN of 13 and creatinine of 1.5. Urinalysis is noted. Toxicology is reviewed. Microbiology reveals blood cultures coag-negative Staph. Urine culture with Klebsiella and yeast. Repeat blood culture is negative. Review of orders reveals the patient to be on Avycaz. ASSESSMENT AND PLAN: A 63-year-old male seen earlier today in 576 with a complicated urinary tract infection, multidrug-resistant Klebsiella and Pseudomonas. The patient with suprapubic catheter with a Gram-positive cocci in the blood. Acute cerebrovascular accident, on Avycaz day #9 with complete 7 to 10 days. Repeat blood cultures are negative. The patient has had human immunodeficiency virus test in 2012, which was negative. Review of orders reveals the Avycaz to be active. Minh Padilla MD
[2018-07-25] MEDS: Albuterol-Ipratrop 3 mg / 0.5 (3 ml) UD IH SCH ×4 (01:38→21:00)
[2018-07-25] MEDS: Acetylcysteine 20% Inhal Soln (4ml) IH SCH ×4 (01:38→21:00)
[2018-07-25] MEDS: Thiamine 100 mg/ml Inj IM SCH (09:48)
--- NOTE | 2018-07-25 10:50 | PN ---
DATE: 07/25/2018 SUBJECTIVE: The patient is seen in room 576, bed 2. According to the nurse, the patient has been just sedated, because of the patient's episodes of aggression. Overnight nurse's notes were reviewed. The patient was still attempting to get of the bed and was tossing in the bed. The patient also had episodes of screaming and trying to climb out of the bed and trying to hit the staff despite multiple comfort measures offered. PHYSICAL EXAMINATION: VITAL SIGNS: T-max 98.8, pulse 72, last 24-48 hours blood pressure 145/90, 170/93, 160/85, the blood pressure was elevated during aggression, screaming and the patient was combative. O2 sat 97%. HEENT: Head examination normocephalic and atraumatic. HEENT examination shows pinkish pale conjunctivae. Anicteric sclerae. No oropharyngeal lesion. No neck rigidity. CHEST: Kyphosis. LUNGS: Shows no audible crackles, rales or wheezing. CARDIOVASCULAR: S1 and S2, irregular rhythm. ABDOMEN: Obese. Positive bowel sound. GENITALIA: Male. Positive suprapubic cystostomy. EXTREMITIES: Shows chronic skin changes of the lymphedema and venous stasis of the lower extremity. MUSCULOSKELETAL: Shows a body mass index of 47. NEUROLOGIC: The patient is arousable, but sleepy. Positive expressive aphasia noted. Positive weakness of the right side noted. DIAGNOSTICS: None from today. Diagnostics from July 24 were reviewed. Renal function is back to normal. Repeat blood cultures are negative, four sets. IMPRESSION: 1. Suprapubic cystostomy malfunction and dysfunction. 2. Urinary retention. 3. Status post suprapubic cystostomy revision with a placement of a larger suprapubic cystostomy status post cystogram. 4. Severe behavioral disorder with episodic agitation, combativeness and high risk for fall. 5. Multidrug resistant Klebsiella pneumoniae and Pseudomonas aeruginosa urinary tract infection. 6. Coagulase-negative Staphylococcus aureus bacteremia versus sepsis versus contamination. 7. Funguria with yeast urinary tract infection. 8. Episodic uncontrolled hypertension secondary to during the episodes of agitation and combativeness. 9. Normocytic anemia. 10. Transient thrombocytopenia. 11. Anticoagulation dependent atrial fibrillation. 12. Status post acute kidney injury (resolved). 13. Proteinuria. 14. Ketonuria. 15. Microscopic hematuria, pyuria and bacteriuria. 16. Recently treated Clostridium difficile . 17. Transcatheter aortic valve replacement. 18. Behavioral disorder. 19. Hypertension. PLAN: At this time, the patient is on Mucomyst and DuoNeb nebulizer treatment every 6 hours, the patient is on an Ativan. The patient required two doses of Ativan last night. The patient is on an Ativan 0.5 mg p.o. every 12 hours p.r.n., Avycaz 1.25 g IV every 8 hours, Benadryl 25 mg p.o. every 8 hours p.r.n., Cozaar 50 mg daily, Eliquis 2.5 mg twice a day, Geodon 10 mg IM every 12 hours p.r.n., heparin 5000 subcutaneous every 8 hours, Lopressor 25 mg twice a day, Seroquel 12.5 mg twice a day and Seroquel 50 mg at bedtime, Tylenol 650 mg p.o. every 6 hours p.r.n. and thiamine 100 mg IM daily. Chest PT every 6 hours, oxygen 2 liters nasal cannula, regular diet, out of bed and physical therapy.. The patient was seen by Infectious Disease yesterday. Recommendation is that the patient will be completing total today of 10 days of IV ceftazidime. After that the patient has completed IV antibiotic treatments and the patient is no longer any intravenous medication, so the patient should be cleared for discharge for long-term placement and jail placement. The patient's current medications as above dictated and as per the MAR. The patient's overall prognosis is guarded to poor, which has been explained to the patient's on multiple occasions and even in the last few days. Dictated and electronically signed, not read. Rashad Brown MD
[2018-07-25 12:52] LABS: BASO # 0.01 K/mm3 (0.0-2.0); BASO % 0.2 % (0.0-3.0); EOS # 0.2 (0.0-0.7); EOS % 3.7 % (1.5-5.0); GRAN # 3.66 (1.4-6.5); GRAN % 60.9 % (50.0-68.0); HEMOGLOBIN 13.4 g/dL (14.0-18.0); LYMPH # 1.7 (1.2-3.4); MEAN CELL VOLUME 94.2 fl (80.0-105.0); MEAN CORPUSCULAR HEMOGLOBIN 31.2 pg (25.0-35.0); MEAN CORPUSCULAR HGB CONC 33.2 g/dl (31.0-37.0); MEAN PLATELET VOLUME 9.4 fl (7.0-11.0); MONO # 0.4 (0.1-0.6); MONO % 7.2 % (1.0-6.0); RBC 4.29 10^6/uL (3.5-6.1); RED CELL DISTRIBUTION WIDTH 14.3 % (11.5-14.5)
[2018-07-25 12:56] LABS: ALB/GLOB RATIO 1.1 (1.1-1.8); ALBUMIN 3.5 g/dL (3.0-4.8); ALT/SGPT 29 U/L (7-56); AST/SGOT 23 U/L (17-59); BILIRUBIN,DIRECT 0.2 mg/dL (0.0-0.4); BLOOD UREA NITROGEN 14 mg/dL (7-21); CALCIUM 9.1 mg/dL (8.4-10.5); GFR NON-AFRICAN AMERICAN 52
--- NOTE | 2018-07-25 14:35 | CP.PCM.PN ---
Subjective - Date & Time of Evaluation Date of Evaluation: 07/25/18 Time of Evaluation: 08:55 - Subjective Subjective: No fevers, not in distress. Objective - Vital Signs/Intake and Output Vital Signs (last 24 hours): Temp Pulse Resp BP Pulse Ox 98 F 68 18 154/96 H 97 07/22/18 23:16 07/22/18 23:16 07/22/18 23:16 07/22/18 23:16 07/22/18 23:16 Intake and Output: 07/23/18 07/23/18 06:59 18:59 Intake Total 360 Output Total 1550 Balance -1190 - Medications Medications: Current Medications Acetaminophen (Tylenol 325mg Tab) 650 mg PO Q6 PRN PRN Reason: TEMP>=99.5F Last Admin: 07/22/18 21:52 Dose: 650 mg Acetaminophen (Tylenol 650 Mg Supp) 650 mg RC Q6H PRN PRN Reason: TEMP>=99.5F Acetylcysteine (Acetylcysteine 20%) 4 ml IH [id number] [facility] Last Admin: 07/23/18 07:32 Dose: 4 ml Albuterol/Ipratropium (Duoneb 3 Mg/0.5 Mg (3 Ml) Ud) 3 ml IH [id number] [facility] Last Admin: 07/23/18 07:32 Dose: 3 ml Apixaban (Eliquis) 2.5 mg PO BID [facility]; Protocol Last Admin: 07/22/18 17:30 Dose: 2.5 mg Aspirin (Aspirin Chewable) 81 mg PO DAILY [facility] Last Admin: 07/22/18 01:34 Dose: 81 mg Atorvastatin Calcium (Lipitor) 40 mg PO HS [facility] Last Admin: 07/22/18 21:41 Dose: 40 mg Cholecalciferol (Vitamin D) 2,000 intlu PO DAILY [facility] Last Admin: 07/22/18 11:28 Dose: 2,000 intlu Diphenhydramine HCl (Benadryl) 25 mg PO Q8H PRN PRN Reason: Itching / Pruritus Last Admin: 07/22/18 21:41 Dose: 25 mg Divalproex Sodium (Depakote Sprinkles) 500 mg PO BID [facility]; Protocol Last Admin: 07/22/18 17:28 Dose: 500 mg Famotidine (Pepcid) 20 mg PO BID [facility] Last Admin: 07/22/18 17:30 Dose: 20 mg Heparin Sodium (Porcine) (Heparin) 5,000 units SC Q8 [facility]; Protocol Last Admin: 07/09/18 20:10 Dose: Not Given Ceftazidime/Avibactam 1.25 gm/ (Sodium Chloride) 100 mls @ 50 mls/hr IVPB Q8H [facility]; Protocol Stop: 07/27/18 08:31 Last Admin: 07/22/18 17:35 Dose: 50 mls/hr Lactic Acid (Lac-Hydrin 12% Lotion (225 G)) 0 gm EXT BID [facility] Last Admin: 07/22/18 17:41 Dose: 1 applic Levothyroxine Sodium (Synthroid) 25 mcg PO ACB [facility] Last Admin: 07/22/18 11:27 Dose: 25 mcg Lorazepam (Ativan) 0.5 mg PO Q12 PRN; Protocol PRN Reason: Agitation Last Admin: 07/22/18 12:36 Dose: 0.5 mg Losartan Potassium (Cozaar) 25 mg PO DAILY [facility] Last Admin: 07/22/18 11:22 Dose: 25 mg Metoprolol Tartrate (Lopressor) 25 mg PO BRKDIN [facility] Last Admin: 07/22/18 17:29 Dose: 25 mg Nystatin (Nystop Topical Powder) 0 gm TOP BID [facility] Last Admin: 07/22/18 17:41 Dose: 1 applic Quetiapine Fumarate (Seroquel) 12.5 mg PO BID [facility]; Protocol Last Admin: 07/22/18 17:29 Dose: 12.5 mg Quetiapine Fumarate (Seroquel) 50 mg PO HS [facility]; Protocol Last Admin: 07/22/18 22:01 Dose: 50 mg Thiamine HCl (Vitamin B1 Inj) 100 mg IM DAILY [facility] Last Admin: 07/22/18 11:28 Dose: 100 mg Torsemide (Demadex) 5 mg PO DAILY [facility] Last Admin: 07/22/18 11:23 Dose: 5 mg Ziprasidone (Geodon Inj) 10 mg IM Q12 PRN; Protocol PRN Reason: Agitation Last Admin: 07/22/18 21:41 Dose: 10 mg - Labs Labs: 07/23/18 07:30 07/23/18 05:00 PT 16.5 SECONDS (9.4-12.5) H 07/08/18 14:45 INR 1.44 07/08/18 14:45 APTT 32.4 Seconds (25.1-36.5) 07/08/18 14:45 - Constitutional Appears: Chronically Ill - Head Exam Head Exam: NORMAL INSPECTION - Respiratory Exam Respiratory Exam: Decreased Breath Sounds - Cardiovascular Exam Cardiovascular Exam: +S1, +S2 - GI/Abdominal Exam GI & Abdominal Exam: Soft. absent: Tenderness Assessment and Plan - Assessment and Plan (Free Text) Plan: Assessment consider complicated UTI with multidrug-resistant Klebsiella and Pseudomonas in this patient with suprapubic Sevilla catheter use - just changed on this admission gram positive cocci in clusters in 2 of 4 blood cx bottles - consider c ontamination history of right leg infected venous stasis ulcers, with MRSA and Pseudomonas acute CVA with right sided weakness and residual aphasia S/P tPA infusion history of left lower extremity skin and skin structure infection with Klebsiella and MRSA in a patient with chronic venous stasis ulcers with no evidence of abscess or osteomyelitis on MRI, clinically improving Probable CHF exacerbation chronic systolic CHF with EF 25% chronic atrial fibrillation chronic lymphedema with chronic venous stasis COPD HTN history of gastric bypass surgery history of left knee surgery Plan will continue Avycaz day 10 to complete 7-10 days of antibiotics repeat blood cx are negative - patient has midline but it was placed on this admission only (making it an unlikely source of the bacteria in the blood) will continue to monitor clinically
--- NOTE | 2018-07-25 18:56 | CP.PCM.PN ---
Subjective - Date & Time of Evaluation Date of Evaluation: 07/25/18 Time of Evaluation: 10:00 - Subjective Subjective: Patient apparently was up all night, now very difficult to arouse from sleep per nursing staff; Objective - Vital Signs/Intake and Output Vital Signs (last 24 hours): Temp Pulse Resp BP Pulse Ox 97.8 F 77 20 160/85 H 100 07/25/18 14:28 07/25/18 14:28 07/25/18 14:28 07/25/18 01:00 07/25/18 14:28 Intake and Output: 07/25/18 07/25/18 06:59 18:59 Intake Total 100 Output Total 750 Balance -650 - Medications Medications: Current Medications Acetaminophen (Tylenol 325mg Tab) 650 mg PO Q6H PRN PRN Reason: Pain, moderate (4-7) Last Admin: 07/24/18 23:32 Dose: 650 mg Acetylcysteine (Acetylcysteine 20%) 4 ml IH [id number] [facility] Last Admin: 07/25/18 13:53 Dose: Not Given Albuterol/Ipratropium (Duoneb 3 Mg/0.5 Mg (3 Ml) Ud) 3 ml IH [id number] [facility] Last Admin: 07/25/18 13:53 Dose: Not Given Apixaban (Eliquis) 2.5 mg PO BID [facility]; Protocol Last Admin: 07/25/18 11:57 Dose: 2.5 mg Diphenhydramine HCl (Benadryl) 25 mg PO Q8H PRN PRN Reason: Itching / Pruritus Last Admin: 07/24/18 23:32 Dose: 25 mg Heparin Sodium (Porcine) (Heparin) 5,000 units SC Q8 [facility]; Protocol Last Admin: 07/09/18 20:10 Dose: Not Given Ceftazidime/Avibactam 1.25 gm/ (Sodium Chloride) 100 mls @ 50 mls/hr IVPB Q8H [facility]; Protocol Stop: 07/27/18 08:31 Last Admin: 07/25/18 17:38 Dose: 50 mls/hr Lorazepam (Ativan) 0.5 mg PO Q12 PRN; Protocol PRN Reason: Agitation Last Admin: 07/24/18 21:39 Dose: 0.5 mg Losartan Potassium (Cozaar) 50 mg PO DAILY [facility] Last Admin: 07/25/18 11:58 Dose: 50 mg Metoprolol Tartrate (Lopressor) 25 mg PO BRKDIN [facility] Last Admin: 07/24/18 17:06 Dose: 25 mg Quetiapine Fumarate (Seroquel) 12.5 mg PO BID [facility]; Protocol Last Admin: 07/25/18 17:24 Dose: 12.5 mg Quetiapine Fumarate (Seroquel) 50 mg PO HS [facility]; Protocol Last Admin: 07/24/18 21:39 Dose: 50 mg Thiamine HCl (Vitamin B1 Inj) 100 mg IM DAILY [facility] Last Admin: 07/25/18 09:48 Dose: 100 mg Ziprasidone (Geodon Inj) 10 mg IM Q12 PRN; Protocol PRN Reason: Agitation Last Admin: 07/25/18 00:15 Dose: 10 mg - Labs Labs: 07/25/18 12:30 07/25/18 12:30 PT 16.5 SECONDS (9.4-12.5) H 07/08/18 14:45 INR 1.44 07/08/18 14:45 APTT 32.4 Seconds (25.1-36.5) 07/08/18 14:45 - Constitutional Appears: Non-toxic, No Acute Distress - Respiratory Exam Respiratory Exam: Clear to Ausculation Bilateral. absent: Respiratory Distress Additional comments: limited auscultation with patient asleep - Cardiovascular Exam Cardiovascular Exam: RRR, +S1, +S2 - GI/Abdominal Exam GI & Abdominal Exam: Soft. absent: Distended, Tenderness - Exam Exam: absent: Bladder Distension - Extremities Exam Additional comments: no leg edema; - Neurological Exam Additional comments: difficult to arouse - Skin Skin Exam: Warm. absent: Cyanosis Assessment and Plan (1) CKD (chronic kidney disease) stage 3, GFR 30-59 ml/min Assessment & Plan: Relatively stable lately, at baseline; has some proteinuria but difficult to accurately assess with UTI; -continue ARB; -avoid nephrotoxic agents (NSAIDS, phosphate enema, etc); Status: Chronic (2) Hypertension Assessment & Plan: BP elevated at times but unlcear if this is during periods of agitation; losartan increased already to 50 mg, continue same along with metoprolol; holding diuretics until patient have regular, full meals; Status: Acute (3) Pulmonary HTN Assessment & Plan: Per previous echo, otherwise, no edema on exam; stable respiratory status; holding diuretics for now; Status: Chronic
[2018-07-26 01:50] LABS: BASO # 0.01 K/mm3 (0.0-2.0); BASO % 0.1 % (0.0-3.0); EOS # 0.1 (0.0-0.7); GRAN # 4.71 (1.4-6.5); GRAN % 68.2 % (50.0-68.0); HEMOGLOBIN 13.1 g/dL (14.0-18.0); LYMPH # 1.5 (1.2-3.4); LYMPH % 21.6 % (22.0-35.0); MEAN CELL VOLUME 92.4 fl (80.0-105.0); MEAN CORPUSCULAR HEMOGLOBIN 31.2 pg (25.0-35.0); MEAN CORPUSCULAR HGB CONC 33.8 g/dl (31.0-37.0); MEAN PLATELET VOLUME 9.2 fl (7.0-11.0); MONO # 0.6 (0.1-0.6); MONO % 8.1 % (1.0-6.0); RBC 4.2 10^6/uL (3.5-6.1); RED CELL DISTRIBUTION WIDTH 14.1 % (11.5-14.5); WHITE BLOOD COUNT 6.9 10^3/uL (4.5-11.0)
[2018-07-26] MEDS: Albuterol-Ipratrop 3 mg / 0.5 (3 ml) UD IH SCH ×3 (03:15→14:25)
[2018-07-26] MEDS: Acetylcysteine 20% Inhal Soln (4ml) IH SCH ×3 (03:15→14:25)
--- NOTE | 2018-07-26 12:43 | CP.PCM.PN ---
Subjective - Date & Time of Evaluation Date of Evaluation: 07/26/18 Time of Evaluation: 08:35 - Subjective Subjective: No fevers, not in distress. Objective - Vital Signs/Intake and Output Vital Signs (last 24 hours): Temp Pulse Resp BP Pulse Ox 97.8 F 77 20 160/85 H 100 07/25/18 14:28 07/25/18 14:28 07/25/18 14:28 07/25/18 01:00 07/25/18 14:28 Intake and Output: 07/25/18 07/25/18 06:59 18:59 Intake Total 100 Output Total 750 Balance -650 - Medications Medications: Current Medications Acetaminophen (Tylenol 325mg Tab) 650 mg PO Q6H PRN PRN Reason: Pain, moderate (4-7) Last Admin: 07/24/18 23:32 Dose: 650 mg Acetylcysteine (Acetylcysteine 20%) 4 ml IH [id number] [facility] Last Admin: 07/25/18 13:53 Dose: Not Given Albuterol/Ipratropium (Duoneb 3 Mg/0.5 Mg (3 Ml) Ud) 3 ml IH [id number] [facility] Last Admin: 07/25/18 13:53 Dose: Not Given Apixaban (Eliquis) 2.5 mg PO BID [facility]; Protocol Last Admin: 07/25/18 11:57 Dose: 2.5 mg Diphenhydramine HCl (Benadryl) 25 mg PO Q8H PRN PRN Reason: Itching / Pruritus Last Admin: 07/24/18 23:32 Dose: 25 mg Heparin Sodium (Porcine) (Heparin) 5,000 units SC Q8 [facility]; Protocol Last Admin: 07/09/18 20:10 Dose: Not Given Ceftazidime/Avibactam 1.25 gm/ (Sodium Chloride) 100 mls @ 50 mls/hr IVPB Q8H [facility]; Protocol Stop: 07/27/18 08:31 Last Admin: 07/25/18 00:44 Dose: 50 mls/hr Lorazepam (Ativan) 0.5 mg PO Q12 PRN; Protocol PRN Reason: Agitation Last Admin: 07/24/18 21:39 Dose: 0.5 mg Losartan Potassium (Cozaar) 50 mg PO DAILY [facility] Last Admin: 07/25/18 11:58 Dose: 50 mg Metoprolol Tartrate (Lopressor) 25 mg PO BRKDIN [facility] Last Admin: 07/24/18 17:06 Dose: 25 mg Quetiapine Fumarate (Seroquel) 12.5 mg PO BID [facility]; Protocol Last Admin: 07/25/18 11:59 Dose: 12.5 mg Quetiapine Fumarate (Seroquel) 50 mg PO HS [facility]; Protocol Last Admin: 07/24/18 21:39 Dose: 50 mg Thiamine HCl (Vitamin B1 Inj) 100 mg IM DAILY [facility] Last Admin: 07/25/18 09:48 Dose: 100 mg Ziprasidone (Geodon Inj) 10 mg IM Q12 PRN; Protocol PRN Reason: Agitation Last Admin: 07/25/18 00:15 Dose: 10 mg - Labs Labs: 07/25/18 12:30 07/25/18 12:30 PT 16.5 SECONDS (9.4-12.5) H 07/08/18 14:45 INR 1.44 07/08/18 14:45 APTT 32.4 Seconds (25.1-36.5) 07/08/18 14:45 - Constitutional Appears: Chronically Ill - Head Exam Head Exam: NORMAL INSPECTION - Respiratory Exam Respiratory Exam: Decreased Breath Sounds - Cardiovascular Exam Cardiovascular Exam: +S1, +S2 - GI/Abdominal Exam GI & Abdominal Exam: Soft. 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 S/P tPA infusion history of left lower extremity skin and skin structure infection with Klebsiella and MRSA in a patient with chronic venous stasis ulcers with no evidence of abscess or osteomyelitis on MRI, clinically improving Probable CHF exacerbation chronic systolic CHF with EF 25% chronic atrial fibrillation chronic lymphedema with chronic venous stasis COPD HTN history of gastric bypass surgery history of left knee surgery Plan completed 10 days of Avycaz repeat blood cx are negative - patient has midline but it was placed on this admission only (making it an unlikely source of the bacteria in the blood) will continue to monitor clinically off antibiotics since he is at risk for infections
[2018-07-26] MEDS: Thiamine 100 mg/ml Inj IM SCH (12:47)
--- NOTE | 2018-07-26 17:04 | PN ---
DATE: 07/26/2018 SUBJECTIVE: The patient is seen in room 576, bed 1. The patient is seen lying in the bed. The patient is awake, responsive, alert. When I walked into the room, the patient started yelling and screaming. According to the nurses overnight nurse's notes, the patient had multiple episodes of yelling, screaming and agitation, for which the patient required medication. PHYSICAL EXAMINATION: VITAL SIGNS: T-max 97.9, pulse 75-84, blood pressure 115/69, 160/85, respiration 20, O2 sat 97%, output is only 300. HEENT: Head: Normocephalic, atraumatic. HEENT examination shows positive expressive aphasia, dysarthria. Pinkish conjunctivae. Anicteric sclerae. No oropharyngeal lesion. NECK: No neck rigidity. CHEST: Kyphosis. LUNGS: Shows no audible rales, crackles or wheezing. CARDIOVASCULAR: S1 and S2, irregular rhythm. Positive systolic murmur, left sternal border, right second intercostal space, left second intercostal space. ABDOMEN: Soft, obese. Positive bowel sound. Positive suprapubic cystostomy noted, draining urine. EXTREMITIES: Shows no pitting edema, no calf tenderness, no Homans' sign. Chronic skin changes of both lower extremity noted because of the chronic lymphedema and chronic venous stasis. NEUROLOGICAL: The patient is alert, awake, responsive. Positive expressive aphasia, dysarthria. Positive right upper extremity weakness more than the right lower extremity weakness. The patient is able to move right and left lower extremity. The patient has weakness of the right upper extremity. MUSCULOSKELETAL: Shows a body mass index of 47. DIAGNOSTICS: On 07/26/2018, WBC 6.9, hemoglobin and hematocrit 13.1 and 38.8, platelet 119. Repeat blood cultures are negative. The patient is seen by Dr. Wheeler today from Infectious Disease. The recommendations were reviewed. The patient's IV antibiotics were still continued despite that Infectious Disease has stated that the patient has completed 10 days of IV antibiotic, but the IV antibiotics are still continued by the ID, it has not been discontinued. IMPRESSION: 1. Suprapubic cystostomy malfunction and dysfunction. 2. Status post revision and replacement of the suprapubic cystostomy. 3. Severe behavioral disorders with episodes of agitation, yelling and screaming. 4. High risk for fall with multiple episodes of attempting to climb out of the bed. 5. Severe behavioral disorder. 6. Multidrug resistant Klebsiella pneumoniae and Pseudomonas aeruginosa urinary tract infection. 7. Coagulase-negative Staphylococcus aureus bacteremia or sepsis versus contamination. 8. Yeast urinary tract infection with funguria. 9. Episodic uncontrolled hypertension. 10. Expressive aphasia, dysarthria, apraxia. 11. Normocytic anemia. 12. Transient thrombocytopenia. 13. Hypertension. 14. Anticoagulation dependent atrial fibrillation. 15. Morbid obesity. 16. Gait dysfunction. 17. Status post acute kidney injury. 18. Normocytic anemia. 19. Granulocytosis. 20. Acute kidney injury (resolved). 21. Hypomagnesemia. 22. Multidrug resistant Klebsiella pneumoniae and Pseudomonas aeruginosa urinary tract infection with proteinuria, ketonuria, microscopic hematuria, pyuria, bacteriuria, funguria and yeast urinary tract infection. 23. Chronic kidney disease stage 3. 24. Pulmonary hypertension. 25. Agitated, combative behavior and severe behavioral disorder. PLAN AT THIS TIME: Current medications: Mucomyst nebulizer 20% 4 mL every 6 hours [id number] with DuoNeb nebulizer every 6 hours [id number], Ativan 0.5 mg p.o. every 12 hours p.r.n. and Ativan 0.5 mg IV push every 12 hours p.r.n., Avycaz 1.25 g IV every 8, Benadryl 25 mg p.o. every 8 p.r.n., Cozaar 50 mg daily, DuoNeb nebulizer every 6 hours [id number], Eliquis 2.5 twice a day, Geodon 10 mg IM every 12 hours p.r.n. The patient required an extra dose of Geodon earlier last night. The patient is on heparin 5000 subcu every 8, which will be stopped since the patient is on Eliquis. The patient was on Lopressor 25 twice a day, Seroquel 12.5 twice a day, Seroquel 50 at bedtime, Tylenol 650 every 6 p.r.n., thiamine 100 mg IM daily. At present, the case has been referred to [facility] for discharge planning as the patient requires 24 hours care with supervision with activities of daily living. The patient's overall prognosis is guarded to poor. Dictated and electronically signed, not read. Rashad Brown MD [facility] # [id number]
[2018-07-26] MEDS ORDERED: Albuterol-Ipratrop 3 mg / 0.5 (3 ml) UD IH PRN (19:33)
--- NOTE | 2018-07-27 11:50 | CP.PCM.PN ---
Subjective - Date & Time of Evaluation Date of Evaluation: 07/27/18 Time of Evaluation: 09:15 - Subjective Subjective: Non-toxic, afebrile. Objective - Vital Signs/Intake and Output Vital Signs (last 24 hours): Temp Pulse Resp BP Pulse Ox 97.9 F 75 20 115/69 97 07/26/18 09:37 07/26/18 09:37 07/26/18 09:37 07/26/18 09:37 07/26/18 09:37 Intake and Output: 07/26/18 07/26/18 06:59 18:59 Intake Total 360 Output Total 450 Balance -90 - Medications Medications: Current Medications Acetaminophen (Tylenol 325mg Tab) 650 mg PO Q6H PRN PRN Reason: Pain, moderate (4-7) Last Admin: 07/24/18 23:32 Dose: 650 mg Acetylcysteine (Acetylcysteine 20%) 4 ml IH [id number] [facility]IN Last Admin: 07/26/18 08:07 Dose: 4 ml Albuterol/Ipratropium (Duoneb 3 Mg/0.5 Mg (3 Ml) Ud) 3 ml IH [id number] [facility]IN Last Admin: 07/26/18 08:06 Dose: 3 ml Apixaban (Eliquis) 2.5 mg PO BID [facility]; Protocol Last Admin: 07/25/18 16:00 Dose: 2.5 mg Diphenhydramine HCl (Benadryl) 25 mg PO Q8H PRN PRN Reason: Itching / Pruritus Last Admin: 07/25/18 20:33 Dose: 25 mg Heparin Sodium (Porcine) (Heparin) 5,000 units SC Q8 [facility]; Protocol Last Admin: 07/09/18 20:10 Dose: Not Given Ceftazidime/Avibactam 1.25 gm/ (Sodium Chloride) 100 mls @ 50 mls/hr IVPB Q8H [facility]; Protocol Stop: 07/27/18 08:31 Last Admin: 07/26/18 01:32 Dose: 50 mls/hr Lorazepam (Ativan) 0.5 mg PO Q12 PRN; Protocol PRN Reason: Agitation Last Admin: 07/25/18 20:33 Dose: 0.5 mg Losartan Potassium (Cozaar) 50 mg PO DAILY [facility] Last Admin: 07/25/18 11:58 Dose: 50 mg Metoprolol Tartrate (Lopressor) 25 mg PO BRKDIN [facility] Last Admin: 07/25/18 17:30 Dose: 25 mg Quetiapine Fumarate (Seroquel) 12.5 mg PO BID [facility]; Protocol Last Admin: 07/25/18 17:24 Dose: 12.5 mg Quetiapine Fumarate (Seroquel) 50 mg PO HS [facility]; Protocol Last Admin: 07/25/18 22:08 Dose: 50 mg Thiamine HCl (Vitamin B1 Inj) 100 mg IM DAILY [facility] Last Admin: 07/25/18 09:48 Dose: 100 mg Ziprasidone (Geodon Inj) 10 mg IM Q12 PRN; Protocol PRN Reason: Agitation Last Admin: 07/25/18 21:00 Dose: 10 mg - Labs Labs: 07/26/18 01:30 07/25/18 12:30 PT 16.5 SECONDS (9.4-12.5) H 07/08/18 14:45 INR 1.44 07/08/18 14:45 APTT 32.4 Seconds (25.1-36.5) 07/08/18 14:45 - Constitutional Appears: Chronically Ill - Head Exam Head Exam: NORMAL INSPECTION - Respiratory Exam Respiratory Exam: Decreased Breath Sounds - Cardiovascular Exam Cardiovascular Exam: +S1, +S2 - GI/Abdominal Exam GI & Abdominal Exam: Soft. 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 S/P tPA infusion history of left lower extremity skin and skin structure infection with Klebsiella and MRSA in a patient with chronic venous stasis ulcers with no evidence of abscess or osteomyelitis on MRI, clinically improving Probable CHF exacerbation chronic systolic CHF with EF 25% chronic atrial fibrillation chronic lymphedema with chronic venous stasis COPD HTN history of gastric bypass surgery history of left knee surgery Plan completed 10 days of Avycaz repeat blood cx are negative - patient has midline but it was placed on this admission only (making it an unlikely source of the bacteria in the blood) will continue to monitor clinically off antibiotics since he is at risk for nosocomial infections
[2018-07-28 07:15] LABS: BASO # 0.01 K/mm3 (0.0-2.0); BASO % 0.2 % (0.0-3.0); EOS # 0.2 (0.0-0.7); EOS % 2.5 % (1.5-5.0); GRAN # 3.86 (1.4-6.5); GRAN % 60.1 % (50.0-68.0); HEMOGLOBIN 12.1 g/dL (14.0-18.0); LYMPH # 1.8 (1.2-3.4); LYMPH % 27.5 % (22.0-35.0); MEAN CELL VOLUME 94.6 fl (80.0-105.0); MEAN CORPUSCULAR HEMOGLOBIN 30.9 pg (25.0-35.0); MEAN CORPUSCULAR HGB CONC 32.6 g/dl (31.0-37.0); MEAN PLATELET VOLUME 9.2 fl (7.0-11.0); MONO # 0.6 (0.1-0.6); MONO % 9.7 % (1.0-6.0); RBC 3.92 10^6/uL (3.5-6.1); RED CELL DISTRIBUTION WIDTH 14.5 % (11.5-14.5); WHITE BLOOD COUNT 6.4 10^3/uL (4.5-11.0)
[2018-07-28 07:22] LABS: INR 1.37; PARTIAL THROMBOPLASTIN TIME 26.1 Seconds (25.1-36.5); PROTHROMBIN TIME 15.8 SECONDS (9.4-12.5)
[2018-07-28 07:40] LABS: ALBUMIN 3.1 g/dL (3.0-4.8); BILIRUBIN,DIRECT 0.2 mg/dL (0.0-0.4); CALCIUM 8.8 mg/dL (8.4-10.5)
--- NOTE | 2018-07-28 10:59 | PN ---
DATE: 07/28/2018 SUBJECTIVE: The patient is seen in room 576, bed 1. Overnight nurse's notes were reviewed. According to the nurses' note, the patient has been yelling, screaming, combative and uncooperative and has attempted to climb out of the bed again. The patient is awake, responsive. The patient is requiring sedation and medications for the MAR ordered by the Psychiatry. PHYSICAL EXAMINATION: VITAL SIGNS: T-max 97.9, pulse 66, blood pressure 137/91, respirations 20, O2 sat 97%. HEENT: Head examination normocephalic, atraumatic. HEENT examination shows pinkish pale conjunctivae. Anicteric sclerae. No oropharyngeal lesion. Positive dysarthria, expressive aphasia, apraxia noted. NECK: Supple. No neck rigidity. CHEST: Kyphosis. LUNGS: Shows no audible crackles, rales or wheezing. CARDIOVASCULAR: S1, S2. Irregular rhythm. Positive systolic murmur, left sternal border, right second intercostal space, left second intercostal space. LUNGS: Shows no audible crackles, rales or wheezing. Decreased breath sounds at the bases, questionable on the left more than the right. ABDOMEN: Soft, obese. Positive bowel sound. Positive suprapubic cystostomy. GENITALIA: Male. RECTAL: Deferred. EXTREMITY: Shows chronic lymphedema changes and venous stasis changes of the lower extremity. MUSCULOSKELETAL: Shows an elevated body mass index. NEUROLOGICAL: The patient is alert, awake, responsive. Positive expressive aphasia, dysarthria noted. Positive right upper extremity weakness noted with decreased range of motion of the right upper extremity noted. Gait examination is not tested. DIAGNOSTICS: 07/28/2018, WBC 6.4, hemoglobin and hematocrit 12.1 and 37.1, platelet count 117, manual platelet count pending. PT 15.8, INR 1.37. Sodium 143; potassium 3.7; chloride 108; CO2 of 29; BUN 18; creatinine 1.9, which has gone up from 1.3 or 1.4; glucose 88; calcium 8.8; phosphorus 3.5; magnesium 1.9. LFTs are within normal limit. IMPRESSION AND PLAN: 1. Persistent refractory severe behavioral disorder with episodes of combativeness, yelling, screaming and attempted to climb out of the bed. 2. High risk for fall. 3. Severe deconditioning and gait dysfunction. 4. Right upper extremity hemiparesis secondary to cerebral infarct. 5. Expressive aphasia, dysarthria, apraxia. 6. Recurrent acute kidney injury. 7. Anticoagulation dependent atrial fibrillation. 8. History of cardiomyopathy. 9. Suprapubic cystostomy malfunction. 10. Cholelithiasis. 11. History of constipation. 12. Recently treated Clostridium difficile associated diarrhea and pseudomembranous colitis. 13. Morbid obesity. 14. Normocytic anemia. 15. Thrombocytopenia. 16. Suprapubic cystostomy malfunction and dysfunction, status post suprapubic cystostomy revision. 17. Multidrug resistant Klebsiella pneumoniae and Pseudomonas aeruginosa urinary tract infection. 18. Funguria and yeast urinary tract infection. 19. Acute kidney injury. 20. Degenerative joint disease of the spine and knees and hips. 21. Right-sided paresis. 22. Hyperlipidemia. 23. Anticoagulation-dependent atrial fibrillation. 24. Questionable vascular dementia versus delirium. 25. High risk for fall. 26. Severe deconditioning and gait dysfunction and possible functional quadriplegia. Plan at this time, the patient's Cozaar will be held at this time because of acute increase in the creatinine. The patient's repeat lab will be ordered. The patient will be continued on the medications as per the MAR of the today. According to the MAR reviewed today, the patient still appears to be on IV Avycaz. I have discussed the case about considering discontinuation of the IV antibiotic with Infectious Disease. We will await further recommendations from Infectious Disease. At this time, the patient's MAR was reviewed. The patient is to be continued on the other medications as per the MAR. The patient will be continued on GI, DVT prophylaxis. The patient will be continued on statins. The patient at present is at disposition dilemma secondary to the patient's behavior. The patient requires long-term care and [place] [facility] placement because of the patient's multiple comorbidity, acute decline and decompensation of the medical, neurological and psychiatric status. Dictated and electronically signed, not read. Rashad Brown MD
--- NOTE | 2018-07-28 11:10 | PN ---
DATE: 07/27/2018 SUBJECTIVE: The patient is seen lying in the bed in room 576, bed 1. I have witnessed right now that the patient is attempting to climb out of the bed and the patient is yelling at me. The patient is awake, responsive. Lying in the bed and attempting to climb out of the bed with moving his right leg across the side rails. The patient is seen lying in the bed, alert, awake, responsive. PHYSICAL EXAMINATION: VITAL SIGNS: T-max is 97.7, heart rate 85-87, blood pressure 138/78, 154/97, respiration 18, O2 sat 94%. GENERAL: The patient is seen lying in the bed. HEAD: Normocephalic, atraumatic. HEENT examination is pinkish pale conjunctivae. Anicteric sclerae. No oropharyngeal lesion. No neck rigidity. CHEST: Kyphosis. LUNGS: Shows no audible crackle, rales or wheezing. CARDIOVASCULAR: S1, S2, irregular rhythm. ABDOMEN: Soft, obese. Positive bowel sounds, positive suprapubic cystostomy. GENITALIA: Male. EXTREMITIES: Shows chronic changes of the lymphedema and venous stasis changes of the bilateral lower extremity. No pitting edema noted. MUSCULOSKELETAL: Shows an elevated body mass index of greater than 44. Positive weakness of the right side noted. Right upper extremity is more weak than the right lower extremity. The patient is able to move left lower and right lower extremity and left upper extremity with decreased range of motion of the right upper extremity. DIAGNOSTICS: None from today. IMPRESSION AND PLAN 1. Severe behavioral disorder with persistent yelling, screaming and severe behavioral disorder and combative behavior. 2. High risk for fall. 3. Gait dysfunction. 4. Deconditioning. 5. Right-sided hemiparesis. 6. Suprapubic cystostomy malfunction and dysfunction. 7. Status post suprapubic cystostomy revision and replacement. 8. Possible vascular dementia with delirium. 9. Anticoagulation requiring atrial fibrillation. 10. Voiding dysfunction. 11. Cardiomyopathy. 12. Acute renal failure, acute kidney injury. 13. Hypertension. 14. Morbid obesity. 15. History of cerebral infarct with right-sided hemiparesis. 16. History of constipation. 17. History of recently treated Clostridium difficile-associated diarrhea and pseudomembranous colitis. 18. Cholelithiasis. 19. History of gastric sleeve. 20. History of lymphedema of the lower extremity and venous stasis of the lower extremity. 21. History of degenerative joint disease of the spine and knees and hips. 22. Hyperlipidemia. 23. Multidrug resistant Klebsiella pneumoniae and Pseudomonas aeruginosa urinary tract infection and funguria and yeast urinary tract infection. 24. Coagulase-negative Staphylococcus aureus bacteremia versus sepsis versus contamination. PLAN: At present, the patient is still on IV Avycaz which is still continued as per the Infectious Disease order. There is no discontinuation order noted by the Infectious Disease on IV antibiotics. The patient is to be continued on all the medications as per the MAR of today which was reviewed. The patient will be continued on Eliquis 2.5 twice a day. The patient will be continued on both GI, DVT prophylaxis. The patient will be continued on high risk for falls. The patient will be continued on the MAR. The patient will be continued on medications as per the MAR. The patient's condition, diagnosis, all treatment plan has been explained to the patient's on multiple occasions. The patient is awaiting for final disposition placement. Dictated and electronically signed, not read. Rashad Brown MD
--- NOTE | 2018-07-28 12:22 | CP.PCM.PN ---
Subjective - Date & Time of Evaluation Date of Evaluation: 07/28/18 Time of Evaluation: 08:50 - Subjective Subjective: Afebrile, not in distress. Objective - Vital Signs/Intake and Output Vital Signs (last 24 hours): Temp Pulse Resp BP Pulse Ox 97.7 F 85 20 154/97 H 95 07/27/18 06:27 07/27/18 11:23 07/27/18 06:27 07/27/18 11:23 07/26/18 16:29 Intake and Output: 07/27/18 07/27/18 06:59 18:59 Intake Total 720 Output Total 575 Balance 145 - Medications Medications: Current Medications Acetaminophen (Tylenol 325mg Tab) 650 mg PO Q6H PRN PRN Reason: Pain, moderate (4-7) Last Admin: 07/24/18 23:32 Dose: 650 mg Albuterol/Ipratropium (Duoneb 3 Mg/0.5 Mg (3 Ml) Ud) 3 ml IH Q2H PRN PRN Reason: Shortness of Breath Apixaban (Eliquis) 2.5 mg PO BID [facility]; Protocol Last Admin: 07/25/18 16:00 Dose: 2.5 mg Apixaban (Eliquis) 2.5 mg PO BID [facility]; Protocol Last Admin: 07/27/18 11:22 Dose: 2.5 mg Diphenhydramine HCl (Benadryl) 25 mg PO Q8H PRN PRN Reason: Itching / Pruritus Last Admin: 07/25/18 20:33 Dose: 25 mg Ceftazidime/Avibactam 1.25 gm/ (Sodium Chloride) 100 mls @ 50 mls/hr IVPB Q8H [facility]; Protocol Last Admin: 07/27/18 00:15 Dose: 50 mls/hr Lorazepam (Ativan) 0.5 mg PO Q12 PRN; Protocol PRN Reason: Agitation Last Admin: 07/25/18 20:33 Dose: 0.5 mg Lorazepam (Ativan) 0.5 mg IVP Q12H PRN; Protocol PRN Reason: Severe Agitation Last Admin: 07/26/18 16:10 Dose: 0.5 mg Losartan Potassium (Cozaar) 50 mg PO DAILY [facility] Last Admin: 07/27/18 11:23 Dose: 50 mg Metoprolol Tartrate (Lopressor) 25 mg PO BRKDIN [facility] Last Admin: 07/27/18 11:21 Dose: 25 mg Quetiapine Fumarate (Seroquel) 12.5 mg PO BID [facility]; Protocol Last Admin: 07/27/18 11:22 Dose: 12.5 mg Quetiapine Fumarate (Seroquel) 50 mg PO HS [facility]; Protocol Last Admin: 07/25/18 22:08 Dose: 50 mg Thiamine HCl (Vitamin B1 Tab) 100 mg PO DAILY [facility] Last Admin: 07/27/18 11:21 Dose: 100 mg Ziprasidone (Geodon Inj) 10 mg IM Q12 PRN; Protocol PRN Reason: Agitation Last Admin: 07/26/18 16:06 Dose: 10 mg - Labs Labs: 07/26/18 01:30 07/25/18 12:30 PT 16.5 SECONDS (9.4-12.5) H 07/08/18 14:45 INR 1.44 07/08/18 14:45 APTT 32.4 Seconds (25.1-36.5) 07/08/18 14:45 - Constitutional Appears: Non-toxic, Chronically Ill - Head Exam Head Exam: NORMAL INSPECTION - Respiratory Exam Respiratory Exam: Decreased Breath Sounds - Cardiovascular Exam Cardiovascular Exam: +S1, +S2 - GI/Abdominal Exam GI & Abdominal Exam: Soft. 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 S/P tPA infusion history of left lower extremity skin and skin structure infection with K lebsiella and MRSA in a patient with chronic venous stasis ulcers with no evidence of abscess or osteomyelitis on MRI, clinically improving Probable CHF exacerbation chronic systolic CHF with EF 25% chronic atrial fibrillation chronic lymphedema with chronic venous stasis COPD HTN history of gastric bypass surgery history of left knee surgery Plan completed 12 days of Avycaz repeat blood cx are negative - patient has midline but it was placed on this admission only (making it an unlikely source of the bacteria in the blood) will continue to monitor clinically off antibiotics since he is at risk for hospital-acquired infections discussed with dr. Brown
--- NOTE | 2018-07-28 13:09 | CP.PCM.PN ---
Subjective - Date & Time of Evaluation Date of Evaluation: 07/28/18 Time of Evaluation: 13:05 - Subjective Subjective: Nephrology Progress Note for Dr. Webb Patient seen and examined at bedside. No acute events overnight. Patient is eating well. No new complaints as per nursing. Objective - Vital Signs/Intake and Output Vital Signs (last 24 hours): Temp Pulse Resp BP Pulse Ox 97.9 F 66 20 137/91 H 97 07/28/18 06:00 07/28/18 06:00 07/28/18 06:00 07/28/18 06:00 07/28/18 06:00 Intake and Output: 07/28/18 07/28/18 06:59 18:59 Output Total 600 Balance -600 - Medications Medications: Current Medications Acetaminophen (Tylenol 325mg Tab) 650 mg PO Q6H PRN PRN Reason: Pain, moderate (4-7) Last Admin: 07/24/18 23:32 Dose: 650 mg Albuterol/Ipratropium (Duoneb 3 Mg/0.5 Mg (3 Ml) Ud) 3 ml IH Q2H PRN PRN Reason: Shortness of Breath Apixaban (Eliquis) 2.5 mg PO BID [facility]; Protocol Last Admin: 07/28/18 11:16 Dose: 2.5 mg Diphenhydramine HCl (Benadryl) 25 mg PO Q8H PRN PRN Reason: Itching / Pruritus Last Admin: 07/28/18 06:34 Dose: 25 mg Lorazepam (Ativan) 0.5 mg PO Q12 PRN; Protocol PRN Reason: Agitation Last Admin: 07/25/18 20:33 Dose: 0.5 mg Lorazepam (Ativan) 0.5 mg IVP Q12H PRN; Protocol PRN Reason: Severe Agitation Last Admin: 07/27/18 18:17 Dose: 0.5 mg Metoprolol Tartrate (Lopressor) 25 mg PO BRKDIN [facility] Last Admin: 07/28/18 11:16 Dose: 25 mg Quetiapine Fumarate (Seroquel) 12.5 mg PO BID [facility]; Protocol Last Admin: 07/28/18 11:15 Dose: 12.5 mg Quetiapine Fumarate (Seroquel) 50 mg PO HS [facility]; Protocol Last Admin: 07/27/18 21:14 Dose: 50 mg Thiamine HCl (Vitamin B1 Tab) 100 mg PO DAILY [facility] Last Admin: 07/28/18 11:16 Dose: 100 mg Ziprasidone (Geodon Inj) 10 mg IM Q12 PRN; Protocol PRN Reason: Agitation Last Admin: 07/27/18 18:16 Dose: 10 mg - Labs Labs: 07/28/18 06:45 07/28/18 06:45 PT 15.8 SECONDS (9.4-12.5) H 07/28/18 06:45 INR 1.37 07/28/18 06:45 APTT 26.1 Seconds (25.1-36.5) 07/28/18 06:45 - Constitutional Appears: Non-toxic, No Acute Distress, Agitated - Head Exam Head Exam: ATRAUMATIC, NORMAL INSPECTION, NORMOCEPHALIC - ENT Exam ENT Exam: Mucous Membranes Moist - Respiratory Exam Respiratory Exam: Clear to Ausculation Bilateral, NORMAL BREATHING PATTERN. absent: Rales, Rhonchi, Wheezes - Cardiovascular Exam Cardiovascular Exam: RRR, +S1, +S2 - GI/Abdominal Exam GI & Abdominal Exam: Soft, Normal Bowel Sounds. absent: Tenderness Additional comments: Suprapubic catheter in place. No erythema or drainage around site - Extremities Exam Extremities Exam: Pedal Edema (Trace b/l) Additional comments: Right lower extremity bandaged - Neurological Exam Neurological Exam: Alert, Awake Additional comments: Aphasic - Psychiatric Exam Psychiatric exam: Agitated - Skin Skin Exam: Intact, Warm Additional comments: Chronic venous stasis skin changes over b/l lower extremities Assessment and Plan - Assessment and Plan (Free Text) Plan: 1. TROY, CKD stage 3 Patient had acute rise in Creatinine Will increase flushes to two times per shift with 50 cc Hold ARB Avoid nephrotoxic agents 2. Hypertension Mildly hypertensive, improved from initial readings Continue Metoprolol Hold ARB in setting of acute rise in creatinine 3. Pulmonary HTN Stable, no diuretics at this time 4. Multi-drug resistant UTI with Klebsiella and Pseudomonas Continue Avycaz as per ID 5. Atrial fibrillation Continue Savannah Church, PGY-3
[2018-07-29 08:38] VITALS: RESP 20
--- NOTE | 2018-07-29 13:37 | PN ---
DATE: 07/29/2018 SUBJECTIVE: The patient is in room 576, bed one. Overnight nurse's notes were reviewed. The patient required sedation with Geodon and Ativan because of episodic agitation and agitated behavior. The patient has been lying in the bed most of the time attempting to climb out of the bed. According to the nurses' note, the patient has been episodically agitated and restless and combative. According to the nurses' note, the patient required Geodon and Ativan for his control of agitation and behavior. PHYSICAL EXAMINATION: VITAL SIGNS: T-max 97.9, pulse 76, last recorded blood pressure 149/100, respirations 18 and O2 sat 96%. HEENT: Head, normocephalic and atraumatic. HEENT examination shows pinkish conjunctivae. Anicteric sclerae. No oropharyngeal lesion. No neck rigidity. CHEST: Symmetrical. LUNGS: Shows no audible crackle, rales or wheezing. Questionable decreased breath sound at the bases, left more than the right. CARDIOVASCULAR: S1 and S2, regular rhythm. Positive systolic murmur left sternal border, right second intercostal space, left second intercostal space. ABDOMEN: Morbidly obese. Positive suprapubic cystostomy. GENITALIA: Male. RECTAL: Deferred. EXTREMITIES: Shows chronic lymphedema, just changes of the lower extremity with the chronic venous stasis changes without any pitting edema. MUSCULOSKELETAL: Shows an elevated body mass index. NEUROLOGICALLY: The patient is alert, awake, responsive with expressive aphasia, dysarthria and apraxia. The patient is able to move left upper extremity, left lower extremity, right lower extremity with decreased range of motion of the right upper extremity. IMPRESSION: 1. Severe behavioral disorder with persistent of education combativeness and restlessness. 2. High risk for fall with multiple attempts to climb out of the bed. 3. Gait dysfunction. 4. Severe deconditioning with bedridden status and possible functional quadriplegia. 5. History of cerebral infarct with right-sided hemiparesis. 6. Expressive aphasia, dysarthria and apraxia. 7. Possible severe vascular dementia with delirium. 8. Longstanding history of poor compliance, noncompliance. 9. Suprapubic cystostomy malfunction status post suprapubic cystostomy revision and replacement. 10. Multidrug resistant Klebsiella pneumoniae and Pseudomonas urinary tract infection. 11. Funguria with yeast urinary tract infection. 12. Staphylococcus coagulase-negative, Staphylococcus aureus bacteremia versus sepsis versus contamination. 13. Anticoagulation dependent atrial fibrillation. 14. History of lymphedema of the lower extremity with history of chronic venous stasis of the lower extremity. 15. Morbid obesity. 16. History of gastric sleeve surgery. 17. Hypertension. 18. Hyperlipidemia. 19. History of constipation. 20. Degenerative joint disease of the spine, hips and knees. 21. Recently treated Clostridium difficile associated diarrhea and pseudomembranous colitis. 22. Behavioral disorder. PLAN: At this time, the patient's IV antibiotics are finally stopped by the Infectious Disease, the patient will be continued on Eliquis, the patient will be continued on GI prophylaxis. The patient will be continued on antihypertensive, the patient will be continued on statins, the patient will be continued on all the medications as per the MAR and as per the medications ordered by the Psychiatry. The patient's MAR from today has been reviewed. The patient's discharge disposition is still unclear because the patient has not been accepted by any intermediate in long-term placement. I have met with the patient's yesterday at bedside who was present at the bedside. I have updated about the patient's condition, diagnosis, overall guarded to poor prognosis. Dictated and electronically signed, not read. Rashad Brown MD
--- NOTE | 2018-07-29 14:32 | CP.PCM.PN ---
Subjective - Date & Time of Evaluation Date of Evaluation: 07/29/18 Time of Evaluation: 08:00 - Subjective Subjective: Nephrology Progress note for Dr. Webb Patient seen and examined at bedside. Patient agitated overnight, given Ativan. Patient currently resting in bed comfortably. Patient has expressive aphasia. Patient with no complaints at this time. Objective - Vital Signs/Intake and Output Vital Signs (last 24 hours): Temp Pulse Resp BP Pulse Ox 97.6 F 61 20 158/97 H 97 07/29/18 08:37 07/29/18 13:47 07/29/18 08:37 07/29/18 13:47 07/29/18 08:37 Intake and Output: 07/29/18 07/29/18 06:59 18:59 Intake Total 300 Output Total 500 Balance -200 - Medications Medications: Current Medications Acetaminophen (Tylenol 325mg Tab) 650 mg PO Q6H PRN PRN Reason: Pain, moderate (4-7) Last Admin: 07/24/18 23:32 Dose: 650 mg Albuterol/Ipratropium (Duoneb 3 Mg/0.5 Mg (3 Ml) Ud) 3 ml IH Q2H PRN PRN Reason: Shortness of Breath Apixaban (Eliquis) 2.5 mg PO BID [facility]; Protocol Last Admin: 07/29/18 13:46 Dose: 2.5 mg Diphenhydramine HCl (Benadryl) 25 mg PO Q8H PRN PRN Reason: Itching / Pruritus Last Admin: 07/28/18 15:39 Dose: 25 mg Lorazepam (Ativan) 0.5 mg PO Q12 PRN; Protocol PRN Reason: Agitation Last Admin: 07/28/18 15:39 Dose: 0.5 mg Lorazepam (Ativan) 0.5 mg IVP Q12H PRN; Protocol PRN Reason: Severe Agitation Last Admin: 07/28/18 21:09 Dose: 0.5 mg Metoprolol Tartrate (Lopressor) 25 mg PO BRKDIN SACHIN Last Admin: 07/29/18 13:47 Dose: 25 mg Quetiapine Fumarate (Seroquel) 12.5 mg PO BID [facility]; Protocol Last Admin: 07/29/18 13:44 Dose: 12.5 mg Quetiapine Fumarate (Seroquel) 50 mg PO HS [facility]; Protocol Last Admin: 07/28/18 21:09 Dose: 50 mg Thiamine HCl (Vitamin B1 Tab) 100 mg PO DAILY [facility] Last Admin: 07/29/18 13:44 Dose: 100 mg Ziprasidone (Geodon Inj) 10 mg IM Q12 PRN; Protocol PRN Reason: Agitation Last Admin: 07/29/18 00:22 Dose: 10 mg - Labs Labs: 07/28/18 06:45 07/28/18 06:45 PT 15.8 SECONDS (9.4-12.5) H 07/28/18 06:45 INR 1.37 07/28/18 06:45 APTT 26.1 Seconds (25.1-36.5) 07/28/18 06:45 - Constitutional Appears: Non-toxic, No Acute Distress - Head Exam Head Exam: ATRAUMATIC, NORMAL INSPECTION, NORMOCEPHALIC - ENT Exam ENT Exam: Mucous Membranes Dry - Respiratory Exam Respiratory Exam: Clear to Ausculation Bilateral, NORMAL BREATHING PATTERN. absent: Rales, Rhonchi, Wheezes - Cardiovascular Exam Cardiovascular Exam: RRR, +S1, +S2 - GI/Abdominal Exam GI & Abdominal Exam: Soft, Normal Bowel Sounds. absent: Tenderness - Extremities Exam Extremities Exam: absent: Calf Tenderness, Pedal Edema Additional comments: b/l lower extremities bandaged - Neurological Exam Neurological Exam: Alert, Awake, Oriented x3 - Skin Skin Exam: Normal Color, Warm Assessment and Plan - Assessment and Plan (Free Text) Plan: 1. TROY, CKD stage 3 Continue to hold ARB Continue flushes two times per shift with 50 cc Recheck labs in AM Avoid nephrotoxic agents 2. Hypertension Will continue to hold ARB, blood pressure stable Will restart ARB with normalization of creatinine Continue Metoprolol 3. Pulmonary HTN Stable, no diuretics at this time 4. Multi-drug resistant UTI with Klebsiella and Pseudomonas Antibiotics stopped as per ID recommendations 5. Atrial fibrillation Continue Savannah Church, PGY-3
--- NOTE | 2018-07-29 14:45 | PCM.FALL ---
<Seth Chavira - Last Filed: 07/29/18 14:38> Post Fall Progress Note - Post Fall Fall Date: 07/29/18 Fall Time: 14:14 Description of Fall: [facility] Post-fall note Code star was called and team responded STAT. On arrival, the patient is lying supine next to the bed with his right leg caught on the top of the bed. The fall was witnessed by nurse and patient care staff. The patient did not hit his head and is currently not overtly bleeding, however he is on Eliquis. The patient is mumbling non-cohesively as he has hx of CVA w/ expressive aphasia. The patient was helped back to his bed and stools are noted on the floor under him. Primary team Dr. Nance was contacted and notified. health and safety consultant Dr. Brown was contacted and recommends joint scans. - Post Fall Exam Vital Sign: Temp Pulse Resp BP Pulse Ox 97.6 F 61 20 158/97 H 97 07/29/18 08:37 07/29/18 13:47 07/29/18 08:37 07/29/18 13:47 07/29/18 08:37 Skull Exam: Negative for: Scalp wound, Scalp hematoma, Ridge in skull Eye Exam: Positive for: Pupils equal, Pupils reactive Ear Exam: Negative for: Bleeding Nose Exam: Negative for: Bleeding Skin Exam: Negative for: Lacerations, Bruising Mouth Exam: Negative for: Tongue bitten, Teeth dislodge Neck Exam: Negative for: Tenderness, Weakness Spinal Exam: Negative for: Tenderness, Weakness Chest Exam: Negative for: Difficulty breathing, Tenderness in collar bones, Tenderness in ribs Abdomen Exam: Negative for: Tenderness Pelvic Exam: Negative for: Tenderness Arm Exam: Positive for: Alteration in range of movement (RUE post-CVA changes, no acute changes). Negative for: Deformity Leg Exam: Negative for: Deformity, Alteration in range of movement Impression/Plan: Post fall progress note for fall on Eliquis with no over bleeding or new deficits or limited ROM - CT head w/o contrast - XR of joints - fall precautions reinforced <Rashad Brown - Last Filed: 08/04/18 17:52> Post Fall Progress Note - Post Fall Exam Vital Sign: Temp Pulse Resp BP Pulse Ox 97.9 F 72 20 148/73 97 08/01/18 14:54 08/01/18 17:04 08/01/18 14:54 08/01/18 17:04 08/01/18 14:54 Attending/Attestation - Attestation I have personally seen and examined this patient.: Yes I have fully participated in the care of the patient.: Yes I have reviewed all pertinent clinical information, including history, physical exam and plan: Yes
--- NOTE | 2018-07-29 15:48 | CT ---
Date of service: 07/29/2018 PROCEDURE: CT HEAD WITHOUT CONTRAST. HISTORY: code jose laboy eliquis, r/o bleed COMPARISON: 07/01/2018 TECHNIQUE: Axial computed tomography images were obtained through the head/brain without intravenous contrast. Radiation dose: Total exam DLP = 984.2 mGy-cm. This CT exam was performed using one or more of the following dose reduction techniques: Automated exposure control, adjustment of the mA and/or kV according to patient size, and/or use of iterative reconstruction technique. FINDINGS: HEMORRHAGE: No intracranial hemorrhage. BRAIN: No mass effect or edema. Severe chronic microvascular changes and encephalomalacia can be seen unchanged from the prior study. There is no acute infarct or hemorrhage VENTRICLES: Moderate atrophy CALVARIUM: Unremarkable. PARANASAL SINUSES: Unremarkable as visualized. No significant inflammatory changes. MASTOID AIR CELLS: Unremarkable as visualized. No inflammatory changes. OTHER FINDINGS: None. IMPRESSION: No acute intracranial findings
--- NOTE | 2018-07-29 16:38 | RAD ---
Date of service: 07/29/2018 PROCEDURE: Bilateral knees HISTORY: code star COMPARISON: TECHNIQUE: Two views of each knee were obtained FINDINGS: There is no evidence of fracture. There is joint space narrowing in the medial compartment bilaterally. IMPRESSION: No evidence of fracture
--- NOTE | 2018-07-29 16:39 | RAD ---
Date of service: 07/29/2018 PROCEDURE: Radiographs of the Right Shoulder HISTORY: code star, pain COMPARISON: No prior. FINDINGS: BONES: Normal. No fracture. JOINTS: Normal. Glenohumeral and acromioclavicular joints preserved. No osteoarthritis. SOFT TISSUES: Normal. OTHER FINDINGS: None. IMPRESSION: Normal radiographs of the right shoulder.
--- NOTE | 2018-07-29 16:39 | RAD ---
Date of service: 07/29/2018 PROCEDURE: Radiographs of the Left Shoulder HISTORY: code star, pain COMPARISON: No prior. FINDINGS: BONES: Normal. No fracture. JOINTS: Normal. Glenohumeral and acromioclavicular joints preserved. No osteoarthritis. SOFT TISSUES: Normal. OTHER FINDINGS: None. IMPRESSION: Normal radiographs of the left shoulder.
--- NOTE | 2018-07-29 16:40 | RAD ---
PROCEDURE: Radiographs of the pelvis and bilateral hips HISTORY: code star COMPARISON: None. FINDINGS: BONES: Pelvis: Unremarkable. Right hip:Unremarkable. Left hip:Unremarkable. JOINTS: Right hip: Unremarkable. Left hip: Unremarkable. Sacroiliac Joints: Unremarkable. Pubic symphysis: Unremarkable. SOFT TISSUES: Normal. OTHER FINDINGS: None. IMPRESSION: Unremarkable radiographs of the hips and pelvis.
--- NOTE | 2018-07-29 16:41 | RAD ---
Date of service: 07/29/2018 PROCEDURE: Cervical Spine Radiographs. HISTORY: Pain. COMPARISON: None available. FINDINGS: BONES: Alignment maintained. No fracture. Dens Intact. DISC SPACES: Normal. SOFT TISSUES: Normal. No prevertebral soft tissue swelling. OTHER FINDINGS: None. IMPRESSION: Normal cervical spine radiographs
--- NOTE | 2018-07-29 18:51 | PN ---
DATE: 07/29/2018 SUBJECTIVE: The patient is seen in bed, in no acute distress, nontoxic, seen earlier today. OBJECTIVE: VITAL SIGNS: Temperature is 98, blood pressure is 120/70, and respiratory rate of . HEENT: Unremarkable. NECK: Supple. LUNGS: Have decreased breath sounds. HEART: Normal S1 and S2. ABDOMEN: Soft. LABORATORY DATA: Reveals the white count of 6.4. Chemistries are noted with a creatinine of 1.9. Urinalysis is noted and valproic acid level of 30. Microbiology reveals the initial blood cultures are coag-negative Staph. Urine culture had Pseudomonas and Klebsiella. The repeat cultures are negative. Review of orders reveals the patient to be off of antibiotics. ASSESSMENT AND PLAN: A 63-year-old who is status post complicated urinary tract infection, multidrug resistant Klebsiella and Pseudomonas and the patient with suprapubic Sevilla catheter and was just changed on admission. Coagulase-negative Staphylococcus in the blood, probable consistent with contamination. The patient with acute cerebrovascular accident, right-sided weakness, residual aphasia, status post tPA infusion. The patient with probable history of congestive heart failure, ejection fraction of 25%, atrial fibrillation, chronic lymphedema, chronic obstructive pulmonary disease, and hypertension. Currently, the patient is off of antibiotics. Afebrile. The patient did complete 12 days of Avycaz, off of antibiotics, afebrile, and the patient is at risk for developing nosocomial infections. Minh Padilla MD
--- NOTE | 2018-07-30 14:33 | CP.PCM.PN ---
Subjective - Date & Time of Evaluation Date of Evaluation: 07/30/18 Time of Evaluation: 08:00 - Subjective Subjective: Nephrology Progress Note for Dr. Webb Patient seen and examined at bedside. Patient with code star yesterday. Review of imaging demonstrates no acute abnormalities. No acute events overnight. Objective - Vital Signs/Intake and Output Vital Signs (last 24 hours): Temp Pulse Resp BP Pulse Ox 97.9 F 64 20 143/90 95 07/30/18 06:00 07/30/18 13:35 07/30/18 06:00 07/30/18 13:35 07/30/18 06:00 Intake and Output: 07/30/18 07/30/18 06:59 18:59 Intake Total 360 Output Total 1200 Balance -840 - Medications Medications: Current Medications Acetaminophen (Tylenol 325mg Tab) 650 mg PO Q6H PRN PRN Reason: Pain, moderate (4-7) Last Admin: 07/30/18 13:35 Dose: 650 mg Albuterol/Ipratropium (Duoneb 3 Mg/0.5 Mg (3 Ml) Ud) 3 ml IH Q2H PRN PRN Reason: Shortness of Breath Amlodipine Besylate (Norvasc) 5 mg PO DAILY SACHIN Last Admin: 07/30/18 13:35 Dose: 5 mg Apixaban (Eliquis) 2.5 mg PO BID SACHIN; Protocol Last Admin: 07/30/18 11:22 Dose: 2.5 mg Diphenhydramine HCl (Benadryl) 25 mg PO Q8H PRN PRN Reason: Itching / Pruritus Last Admin: 07/28/18 15:39 Dose: 25 mg Hydralazine HCl (Apresoline) 10 mg PO Q6H PRN PRN Reason: SBP>=170/&OR DBP>=95MMHG Last Admin: 07/29/18 18:03 Dose: 10 mg Lorazepam (Ativan) 0.5 mg PO Q12 PRN; Protocol PRN Reason: Agitation Last Admin: 07/30/18 13:42 Dose: 0.5 mg Lorazepam (Ativan) 0.5 mg IVP Q12H PRN; Protocol PRN Reason: Severe Agitation Last Admin: 07/28/18 21:09 Dose: 0.5 mg Metoprolol Tartrate (Lopressor) 25 mg PO BRKDIN SACHIN Last Admin: 07/30/18 11:31 Dose: 25 mg Quetiapine Fumarate (Seroquel) 12.5 mg PO BID [facility]; Protocol Last Admin: 07/30/18 11:21 Dose: 12.5 mg Quetiapine Fumarate (Seroquel) 50 mg PO HS [facility]; Protocol Last Admin: 07/29/18 21:07 Dose: 50 mg Thiamine HCl (Vitamin B1 Tab) 100 mg PO DAILY [facility] Last Admin: 07/30/18 11:22 Dose: 100 mg Ziprasidone (Geodon Inj) 10 mg IM Q12 PRN; Protocol PRN Reason: Agitation Last Admin: 07/29/18 17:21 Dose: 10 mg - Labs Labs: 07/28/18 06:45 07/28/18 06:45 PT 15.8 SECONDS (9.4-12.5) H 07/28/18 06:45 INR 1.37 07/28/18 06:45 APTT 26.1 Seconds (25.1-36.5) 07/28/18 06:45 - Constitutional Appears: Non-toxic, No Acute Distress - Head Exam Head Exam: ATRAUMATIC, NORMAL INSPECTION, NORMOCEPHALIC - ENT Exam ENT Exam: Mucous Membranes Moist - Respiratory Exam Respiratory Exam: Clear to Ausculation Bilateral, NORMAL BREATHING PATTERN. absent: Rhonchi, Wheezes, Respiratory Distress - Cardiovascular Exam Cardiovascular Exam: RRR, +S1, +S2 - GI/Abdominal Exam GI & Abdominal Exam: Soft, Normal Bowel Sounds. absent: Tenderness Additional comments: Suprapubic catheter in place. No erythema or swelling - Extremities Exam Extremities Exam: Normal Inspection. absent: Calf Tenderness, Pedal Edema - Neurological Exam Neurological Exam: Alert, Awake - Psychiatric Exam Psychiatric exam: Agitated - Skin Skin Exam: Intact, Warm Additional comments: Lower extremities b/l bandaged Assessment and Plan - Assessment and Plan (Free Text) Plan: 1. TROY, CKD stage 3 Continue to hold ARB Continue flushes two times per shift with 50 cc Phelebotomist unable to obtain labs Avoid nephrotoxic agents 2. Hypertension Will add Norvasc 5 mg daily Will continue to hold ARB Will restart ARB with normalization of creatinine Continue Metoprolol 3. Pulmonary HTN Stable, no diuretics at this time 4. Multi-drug resistant UTI with Klebsiella and Pseudomonas, Resolved No antibiotics as per ID recommendations 5. Atrial fibrillation Continue Savannah Church, PGY-3
--- NOTE | 2018-07-30 17:49 | PCM.URO ---
Urology Progress Note - Objective Lab Studies: Reviewed (no gu change) Intake & Output: Intake & Output 07/29/18 07/30/18 07/30/18 18:59 06:59 18:59 Intake Total 360 Output Total 1200 Balance -840 Intake: Oral 360 Output: Urine 1200 Suprapubic 1200 Other: # Bowel Movements 1 Vital Signs: Vital Signs - 24 hr 07/29/18 07/29/18 07/30/18 18:03 23:14 06:00 Temperature 98 F 97.9 F Pulse Rate 74 69 74 Respiratory 20 20 Rate Blood Pressure 170/90 H 158/88 H O2 Sat by Pulse 98 95 Oximetry 07/30/18 07/30/18 07/30/18 11:31 13:35 14:00 Temperature 98.0 F Pulse Rate 82 64 67 Respiratory 20 Rate Blood Pressure 170/91 H 143/90 145/94 H O2 Sat by Pulse 96 Oximetry
--- NOTE | 2018-07-30 20:59 | PN ---
DATE: 07/30/2018 SUBJECTIVE: The patient is in bed, in no acute distress, nontoxic. PHYSICAL EXAMINATION VITAL SIGNS: On exam, temperature is 98, blood pressure is 140/90, respiratory rate 20. HEENT: Unremarkable. NECK: Supple. LUNGS: Show decreased breath sounds. HEART: Normal S1, S2. ABDOMEN: Soft, nontender. LABORATORY DATA: Reveals a white count of 6.4, hemoglobin of 12, platelets of 117. Chemistries are noted. A review of orders reveals the patient to be off of antibiotics. ASSESSMENT AND PLAN: A 63-year-old status post complicated urinary tract infection, multidrug resistant Klebsiella and Pseudomonas, with a suprapubic Sevilla catheter changed on admission. Coag-negative Staph in the blood, probable contamination. The patient with acute cerebrovascular accident, right-sided weakness, residual aphasia, status post tPA infusion, and probable history of chronic congestive heart failure, ejection fraction of 25%, atrial fibrillation, chronic lymphedema, chronic obstruction pulmonary disease and hypertension. Currently the patient is off of antibiotics, afebrile and has completed 12 days of Avycaz, and the patient is at risk for developing nosocomial infections. Currently off of antibiotics. Minh Padilla MD
--- NOTE | 2018-07-30 23:11 | PN ---
DATE: 07/30/2018 LOCATION: The patient is seen, lying in the bed in room 576, bed #1. SUBJECTIVE: Nurse's notes were reviewed. The patient was seen to be awake, responsive, lying in the bed. The patient was agitated and screaming. I advised the patient to not to scream and yell. According to the nurse's note, the patient has been intermittently agitated and combative. Yesterday, the patient slid out of the bed according to the patient's nurse, Cahvo. The patient was reexamined last night after the fall. The patient was found to be without any major issues and problems. PHYSICAL EXAMINATION: GENERAL: The patient is seen lying in the bed. VITAL SIGNS: T-max 98, heart rate 74, 68, and 82. Blood pressure in the last 12 hours; 158/88, 170/91, 143/90, 145/94, respirations 20, O2 sat 95%-96%. HEAD: Normocephalic, atraumatic. HEENT: Examination shows pinkish conjunctivae. Anicteric sclerae. No oropharyngeal lesion. No neck rigidity. CHEST: Kyphosis. CARDIOVASCULAR: S1, S2, irregular rhythm. Questionable soft systolic murmur; left sternal border, right second intercostal space, left second intercostal space. LUNGS: Show no crackles, rales, or wheezing. Show decreased breath sounds at the bases, left more than the right. ABDOMEN: Morbidly obese. Positive bowel sounds, positive suprapubic cystostomy. GENITALIA: Male. RECTAL: Deferred. EXTREMITIES: Show chronic lymphedematous and chronic venous stasis changes of the lower extremity noted. Positive right upper extremity weakness noted. Positive expressive aphasia, dysarthria, apraxia noted. Gait examination is not tested.. MUSCULOSKELETAL: Examination shows a body mass index of 39 today. The patient's CAT scan of the head, shoulder x-ray; cervical spine, hip, pelvic, and knee x-rays, all were reviewed, which were done after the patient slid out of the bed. IMPRESSION: 1. Persistent severe behavioral disorders with combative attitude and agitation and aggression and high risk for fall, status post fall. 2. Severe noncompliance. 3. Bilateral knee joint space narrowing. 4. Severe gait dysfunction with bedridden status and possible functional quadriplegia. 5. History of cerebral infarct with right upper extremity and right lower extremity paresis (resolving). 6. Severe chronic microvascular ischemic disease of the brain with encephalomalacia of the brain. 7. Multidrug-resistant Klebsiella pneumoniae and Pseudomonas aeruginosa urinary tract infection. 8. Coagulase-negative Staphylococcus aureus bacteremia, sepsis versus contamination. 9. Funguria and yeast urinary tract infection. 10. Hypertension. 11. Anticoagulation-dependent atrial fibrillation. 12. Normocytic anemia with mild thrombocytopenia. 13. Acute kidney injury (resolved versus resolving). 14. Proteinuria, ketonuria, microscopic hematuria, pyuria, bacteriuria with multidrug-resistant Klebsiella pneumoniae, urinary tract infection and Pseudomonas aeruginosa urinary tract infection. 15. Coagulase-negative Staphylococcus aureus bacteremia versus sepsis versus contamination. 16. High risk for falls. CURRENT MEDICATIONS: Hydralazine 10 mg p.o. every 6 hours p.r.n. for systolic blood pressure greater than or equal to 170 and diastolic blood pressure greater than 95, Ativan 0.5 mg p.o. or IV push every 12 hours p.r.n., Benadryl 25 mg p.o. every 8 hours p.r.n., DuoNeb nebulizer every 2 hours p.r.n., Eliquis 2.5 twice a day, Geodon 10 mg IM every 12 hours p.r.n., metoprolol 25 mg twice a day. The patient was started on Norvasc 5 mg daily by Nephrology, Seroquel 12.5 twice a day, Seroquel 50 mg at bedtime, Tylenol 650 p.o. every 6 hours p.r.n., thiamine 100 mg p.o. daily, oxygen 2 L, regular diet.. PLAN: At present, the patient will be continued on the above therapeutic intervention. The patient is awaiting placement. Rashad Brown MD
[2018-07-31 09:23] LABS: CALCIUM 9.1 mg/dL (8.4-10.5)
--- NOTE | 2018-07-31 17:59 | PN ---
DATE: 07/31/2018 LOCATION: The patient was seen in room 576, bed 1. SUBJECTIVE: The patient's was at bedside. The patient's overnight nurse's notes were reviewed. The patient had episodes of agitation and yelling and screaming for which the patient was given medication. The patient slept. The patient was found to be alert, awake, oriented x1-2. The patient required medications to control agitation. PHYSICAL EXAMINATION VITAL SIGNS: T-max 97.8; pulse 92, 103, 92; blood pressure 163/100, down to 127/78; respirations 20; O2 sat 100%. HEENT: Head examination; normocephalic, atraumatic. Pinkish pale conjunctivae. Anicteric sclerae. No oropharyngeal lesion. NECK: No neck rigidity. NEUROLOGIC: Positive expressive aphasia. Positive apraxia. Positive dysarthria. CHEST: Kyphosis. LUNGS: No audible crackles, rales or wheezing. CARDIOVASCULAR: S1, S2, rhythm. Positive systolic murmur at left sternal border, right second intercostal space, left second intercostal space. ABDOMEN: Obese. Positive bowel sounds. Positive surgical scar of suprapubic cystostomy. Positive suprapubic cystostomy noted. GENITALIA: Male. RECTAL: Deferred. EXTREMITIES: Chronic skin changes of the bilateral lower extremity lymphedema and venous stasis. Positive weakness of the right upper extremity. Positive right upper extremity midline noted. MUSCULOSKELETAL: Body mass index of 39. DIAGNOSTIC DATA: On 07/31/2018, sodium 141, potassium 3.8, chloride 107, CO2 of 28, anion gap 10, BUN 17, creatinine 1.6, GFR 44, glucose 104. Calcium 9.1. CURRENT MEDICATIONS: Hydralazine 10 mg by mouth every 6 hours as needed, Ativan 0.5 mg by mouth or IV push every 12 hours as needed, Benadryl 25 mg by mouth every 8 hours as needed, DuoNeb nebulizer every 2 hours as needed, Eliquis 2.5 mg twice a day, Geodon 10 mg IM every 12 hours as needed, Lopressor 25 mg twice a day, Norvasc 10 mg daily, Seroquel 12.5 mg twice a day, Seroquel 50 mg at bedtime, Tylenol 650 mg by mouth every 6 hours as needed, thiamine 100 mg by mouth daily. IMPRESSION: 1. Persistent refractory severe behavioral disorder with episodes of combativeness, agitation, restlessness, and screaming. 2. Suprapubic cystostomy malfunction and dysfunction, status post suprapubic cystostomy revision and replacement. 3. Multidrug-resistant Klebsiella pneumoniae urinary tract infection and Pseudomonas aeruginosa urinary tract infection with funguria, yeast urinary tract infection. 4. Staphylococcus coagulase-negative bacteremia versus sepsis versus contamination with proteinuria, trace ketonuria, microscopic hematuria, pyuria, bacteriuria. 5. Hypertension. 6. Tachycardia. 7. Right hemiparesis. 8. Status post fall. 9. Severe deconditioning, gait dysfunction, and possible functional quadriplegia. 10. Anemia. 11. Thrombocytopenia. 12. Anticoagulation-dependent atrial fibrillation. 13. Acute kidney injury (resolving). 14. Gait dysfunction. 15. Morbid obesity. 16. History of recently treated Clostridium difficile associated diarrhea and pseudomembranous colitis. 17. Questionable and possible vascular dementia with delirium. PLAN: Chest PT and oxygen. Head of the bed at 30 degrees. SCDs, PRASHANT stockings ordered. The patient's condition, diagnoses, overall guarded to poor prognosis, explained to the patient's again who was present at the bedside. I have explained to the patient's that the patient needs to be cooperative, calm, and stop screaming, and the patient has to stop being combative in order for the patient's further continuation of the medical care and possible placement into a long-term facility which the patient's acknowledged and understood. Rashad Brown MD
--- NOTE | 2018-07-31 23:04 | PN ---
DATE: 07/31/2018 SUBJECTIVE: The patient is in bed in no acute distress. OBJECTIVE: VITAL SIGNS: On exam, temperature is 98, blood pressure is 160/100, respiratory rate of 18, heart rate of 92. HEENT: Examination of HEENT is unremarkable. NECK: Supple. LUNGS: Have decreased breath sounds. HEART: Normal S1, S2. ABDOMEN: Soft. LABORATORY EXAMINATION: Reveals a white count of 6.4, hemoglobin of 12, platelets are low. Chemistries are noted. Urinalysis is noted. ASSESSMENT AND PLAN: This is a 63-year-old male seen earlier this morning with complicated urinary tract infections, multidrug-resistant Klebsiella and Pseudomonas, suprapubic Sevilla catheter changed on admission, coagulase-negative staphylococcus in the blood, probable contamination and had acute cerebrovascular accident, right-sided weakness, residual aphasia status post t-PA infusion and probable history of chronic congestive heart failure and chronic lymphedema, chronic obstructive pulmonary disease and hypertension. Currently, the patient is off of antibiotics, afebrile, and received 12 days of Avycaz. The patient is at risk for developing nosocomial infections. Review of the medications and their orders reveals no antibiotics on board. Minh Padilla MD
--- NOTE | 2018-08-01 00:59 | CP.PCM.PN ---
Subjective - Date & Time of Evaluation Date of Evaluation: 08/01/18 Time of Evaluation: 00:58 - Subjective Subjective: # 2o angiocath was inserted in right hand. Objective - Vital Signs/Intake and Output Vital Signs (last 24 hours): Temp Pulse Resp BP Pulse Ox 97.8 F 75 20 132/81 100 07/31/18 06:00 07/31/18 18:17 07/31/18 06:00 07/31/18 18:17 07/31/18 06:00 - Medications Medications: Current Medications Acetaminophen (Tylenol 325mg Tab) 650 mg PO Q6H PRN PRN Reason: Pain, moderate (4-7) Last Admin: 07/31/18 21:07 Dose: 650 mg Albuterol/Ipratropium (Duoneb 3 Mg/0.5 Mg (3 Ml) Ud) 3 ml IH Q2H PRN PRN Reason: Shortness of Breath Amlodipine Besylate (Norvasc) 10 mg PO DAILY [facility] Last Admin: 07/31/18 14:42 Dose: 10 mg Apixaban (Eliquis) 2.5 mg PO BID [facility]; Protocol Last Admin: 07/31/18 18:22 Dose: 2.5 mg Diphenhydramine HCl (Benadryl) 25 mg PO Q8H PRN PRN Reason: Itching / Pruritus Last Admin: 07/31/18 21:07 Dose: 25 mg Hydralazine HCl (Apresoline) 10 mg PO Q6H PRN PRN Reason: SBP>=170/&OR DBP>=95MMHG Last Admin: 07/29/18 18:03 Dose: 10 mg Lorazepam (Ativan) 0.5 mg PO Q12 PRN; Protocol PRN Reason: Agitation Last Admin: 07/31/18 14:43 Dose: 0.5 mg Lorazepam (Ativan) 0.5 mg IVP Q12H PRN; Protocol PRN Reason: Severe Agitation Last Admin: 08/01/18 00:29 Dose: 0.5 mg Metoprolol Tartrate (Lopressor) 25 mg PO BRKDIN [facility] Last Admin: 07/31/18 18:17 Dose: 25 mg Quetiapine Fumarate (Seroquel) 12.5 mg PO BID [facility]; Protocol Last Admin: 07/31/18 18:19 Dose: 12.5 mg Quetiapine Fumarate (Seroquel) 50 mg PO HS SACHIN; Protocol Last Admin: 07/31/18 21:07 Dose: 50 mg Thiamine HCl (Vitamin B1 Tab) 100 mg PO DAILY SACHIN Last Admin: 07/31/18 10:00 Dose: 100 mg Ziprasidone (Geodon Inj) 10 mg IM Q12 PRN; Protocol PRN Reason: Agitation Last Admin: 07/31/18 21:07 Dose: 10 mg - Labs Labs: 07/28/18 06:45 07/31/18 08:50 PT 15.8 SECONDS (9.4-12.5) H 07/28/18 06:45 INR 1.37 07/28/18 06:45 APTT 26.1 Seconds (25.1-36.5) 07/28/18 06:45
[2018-08-01 08:27] VITALS: TEMP 97.9
--- NOTE | 2018-08-01 11:06 | PN ---
DATE: 08/01/2018 SUBJECTIVE: The patient is in bed, in no acute distress, nontoxic. PHYSICAL EXAMINATION: VITAL SIGNS: Temperature is 97, blood pressure is 180/80, respiratory rate 20, heart rate of 98. HEENT: Unremarkable. NECK: Supple. LUNGS: Have decreased breath sounds. HEART: Normal S1, S2. ABDOMEN: Soft, nontender. LABORATORY EXAMINATION: Reveals a white count of 6.4, hemoglobin of 12, platelets of 117,000. Chemistries are noted. Creatinine is 1.6. Toxicology is noted and currently the patient is off of antibiotics. ASSESSMENT AND PLAN: A 63-year-old male seen earlier this morning was admitted with complicated urinary tract infection, multidrug resistant Klebsiella and Pseudomonas, suprapubic Sevilla catheter changed on admission with a coag-negative staph in the blood, probable contamination. The patient with acute cerebrovascular accident, right-sided weakness, residual aphasia, status post TPA infusion and probable history of chronic congestive heart failure, chronic lymphedema, chronic obstructive lung disease and hypertension. Currently, off of antibiotics, had completed 12 days of Avycaz. The patient is off of antibiotics, afebrile and risk for developing nosocomial infections. Minh Padilla MD
[2018-08-01 14:55] VITALS: PULSE 72; O2SAT 97
[2018-08-01 17:08] VITALS: BP 148/73
--- NOTE | 2018-08-01 23:21 | PN ---
DATE: 08/01/2018 SUBJECTIVE: The patient is seen and examined in room 576, bed 1. overnight nurses' notes have been reviewed. The patient has been episodically agitated, requiring Geodon and the patient pulled his midline out this morning and last night. OBJECTIVE: GENERAL: The patient was found to be alert, awake, and oriented x2. VITAL SIGNS: T-max 97.9, pulse 85-72, blood pressure 144/86 and 148/76, respirations 20, and O2 sat 97%. HEENT: Head; normocephalic and atraumatic. HEENT examination shows pink conjunctivae. Anicteric sclerae. No oropharyngeal lesion. NECK: No neck rigidity. CHEST: Kyphosis. LUNGS: Shows questionable decreased breath sound at the bases. No crackles, rales or wheezing. CARDIOVASCULAR: S1 and S2, irregular rhythm. ABDOMEN: Soft. Positive bowel sounds, protuberant. Positive gastric bypass surgery. Positive suprapubic cystostomy. GENITALIA: Male. RECTAL: Deferred. EXTREMITIES: Shows chronic lymphadenomatous changes of the lower extremity, chronic venous stasis of the lower extremity. MUSCULOSKELETAL: Shows a body mass index of 39. NEUROLOGIC: The patient is alert, awake, responsive, aphasic and dysarthric, apraxic with right upper extremity weakness, right lower extremity weakness has significantly improved. Gait examination is not tested. The patient is seen lying in the bed. IMPRESSION: 1. Suprapubic cystostomy malfunction and dysfunction, status post revision and replacement of the suprapubic cystostomy. 2. Multidrug resistant Klebsiella pneumoniae and Pseudomonas aeruginosa urinary tract infection and funguria and yeast urinary tract infection. 3. Coagulase-negative Staphylococcus aureus bacteremia versus sepsis versus contamination. 4. Hypertension. 5. Anticoagulation, requiring atrial fibrillation. 6. Normocytic anemia with transient thrombocytopenia and granulocytosis. 7. Acute kidney injury (resolved). 8. Hypomagnesemia. 9. Chronic kidney disease stage III. 10. Severe behavioral disorder with episodes of combativeness and agitation. 11. Urinary tract infection with proteinuria, ketonuria, microscopic hematuria, pyuria, and bacteriuria. 12. Gait dysfunction. 13. Right upper extremity paresis. 14. Morbid obesity with elevated body mass index of 39. 15. Bedridden status. 16. Possible functional quadriplegia. 17. Possible vascular dementia and delirium. 18. Anticoagulation dependent atrial fibrillation. 19. Hypertension. PLAN: At this time. the patient was seen by Owner Operator. The patient was accepted for long-term care at [facility]. The patient has been cleared for discharge. CURRENT MEDICATIONS: 1. Hydralazine 10 mg p.o. every 6 hours p.r.n. 2. Ativan 0.5 mg IV or p.o. every 12 hours p.r.n. 3. Benadryl 25 mg every 8 hours p.r.n. 4. DuoNeb nebulizer every 2 hours p.r.n. 5. Eliquis 2.5 mg twice a day. 6. Geodon 10 mg IM every 12 hours p.r.n. 7. Lopressor 25 mg twice a day. 8. Norvasc 10 mg daily. 9. Seroquel 12.5 mg twice a day. 10. Seroquel 50 mg at bedtime. 11. Tylenol p.r.n. 12. Thiamine 100 mg p.o. daily. Dictated and electronically signed, not read. Rashad Brown MD
== END 2018-08-01 17:27 | DRG 698 ==
LOC: ED 12:59 → ERH 15:07 → 5RSO 07-09 00:24
PROVIDERS: ADMIT Urology; ATTEND Urology
PROC: 0T2BX0Z Change Drainage Device in Bladder, External Approach (ICD-10-PCS; principal; 2018-07-09 08:30)
PROC: 05HY33Z Insertion of Infusion Device into Upper Vein, Percutaneous Approach (ICD-10-PCS; 2018-07-18)
PROC: 3E03329 Introduction of Other Anti-infective into Peripheral Vein, Percutaneous Approach (ICD-10-PCS; 2018-07-18)
DX: T83.010A Breakdown (mechanical) of cystostomy catheter, initial encounter (principal); G92 Toxic encephalopathy; A41.9 Sepsis, unspecified organism; R53.2 Functional quadriplegia; B37.49 Other urogenital candidiasis; I69.351 Hemiplegia and hemiparesis following cerebral infarction affecting right dominant side; I13.0 Hypertensive heart and chronic kidney disease with heart failure and stage 1 through stage 4 chronic kidney disease, or unspecified chronic kidney disease; F01.51 Vascular dementia, unspecified severity, with behavioral disturbance; L97.909 Non-pressure chronic ulcer of unspecified part of unspecified lower leg with unspecified severity; I42.0 Dilated cardiomyopathy; N17.9 Acute kidney failure, unspecified; I50.42 Chronic combined systolic (congestive) and diastolic (congestive) heart failure; A04.72 Enterocolitis due to Clostridium difficile, not specified as recurrent; Z68.42 Body mass index [BMI] 45.0-49.9, adult; T83.030A Leakage of cystostomy catheter, initial encounter; N18.3 Chronic kidney disease, stage 3 (moderate); B96.1 Klebsiella pneumoniae [K. pneumoniae] as the cause of diseases classified elsewhere; N31.9 Neuromuscular dysfunction of bladder, unspecified; J44.9 Chronic obstructive pulmonary disease, unspecified; I27.20 Pulmonary hypertension, unspecified; I48.2 Chronic atrial fibrillation; D64.9 Anemia, unspecified; D69.6 Thrombocytopenia, unspecified; E03.9 Hypothyroidism, unspecified; E66.01 Morbid (severe) obesity due to excess calories; E55.9 Vitamin D deficiency, unspecified; E78.5 Hyperlipidemia, unspecified; E83.42 Hypomagnesemia; E87.6 Hypokalemia; I89.0 Lymphedema, not elsewhere classified; G47.33 Obstructive sleep apnea (adult) (pediatric); F41.9 Anxiety disorder, unspecified; B96.5 Pseudomonas (aeruginosa) (mallei) (pseudomallei) as the cause of diseases classified elsewhere; K80.20 Calculus of gallbladder without cholecystitis without obstruction; M16.10 Unilateral primary osteoarthritis, unspecified hip; I87.8 Other specified disorders of veins; N28.1 Cyst of kidney, acquired; M17.0 Bilateral primary osteoarthritis of knee; M47.899 Other spondylosis, site unspecified; Z16.24 Resistance to multiple antibiotics; Y83.3 Surgical operation with formation of external stoma as the cause of abnormal reaction of the patient, or of later complication, without mention of misadventure at the time of the procedure; Z75.1 Person awaiting admission to adequate facility elsewhere; I69.320 Aphasia following cerebral infarction; I69.322 Dysarthria following cerebral infarction; Z74.01 Bed confinement status; Z91.19 Patient's noncompliance with other medical treatment and regimen; Z78.1 Physical restraint status; Z98.84 Bariatric surgery status; Z79.01 Long term (current) use of anticoagulants